=== PATIENT | female | born 1955 | race Caucasian/White ===

== ENCOUNTER → 2016-12-30 | Outpatient (CLI) | payer BC ==
[2014-12-07 15:00] VITALS: BP 167/79
[~2016-12-30] MED LIST: CITA20TA5 PO; DOXY100C2 PO; DOXYCYCLINE PO; HYDR-2666 PO; HYDR-965 PO; LEVO75TA5 PO; LOSA50TA6 PO; METF500T4 PO; NAPR220C4 PO; ZOLPIDEM 5 MG TABLET. PO ONE; [UNRECOGNIZED DRUG - CODE] PO
--- NOTE | 2017-01-01 20:01 | SLEEP ---
DATE OF STUDY: 12/30/2016 ATTENDING PHYSICIAN: Dr. Waldemar Eugene. REFERRING PHYSICIAN: Dr. Dominguez. The patient is 61 years old, weighs 180 pounds with a BMI of 31. The patient's Pomeroy score was 5. A split night study was performed at [facility]. During the night study, the patient spent 465 minutes in bed and slept for 323 minutes with a sleep efficiency of 70%. Sleep latency was 79 minutes, which is prolonged with a REM latency of 400 minutes, which is prolonged as well. Sleep architecture showed increased stage 2 sleep, normal stage 1 and increased slow wave sleep and reduced REM sleep. During the initial diagnostic portion of the study, the patient slept for 132 minutes. During this time, there were no obstructive mixed or central apneas. There were 42 hypopneas. The patient's apnea-hypopnea index was 19 per hour, supine index 32 per hour. REM sleep was not seen during the diagnostic portion. EKG monitoring revealed normal sinus rhythm, average heart rate was 71 beats per minute and some PACs were seen. Review of nocturnal oximetry study during the diagnostic portion revealed a mean oxygen saturation of 80% with the lowest of 68%. 75% of time oxygen saturation remained between 80% and 89% and 18% of time between 70% and 79%. PLMS were seen at an index of 16 per hour and 3 per hour caused EEG arousals. The patient met the criteria for CPAP initiation. It was started at 9 cm of water as the patient was unable to tolerate pressure lower than that. At a final pressure of 18 cm of water, the patient slept for 19 minutes. At that time, REM sleep as well as supine sleep was seen; as a result, the patient continued to have respiratory events. AHI was 16 per hour. Oxygen saturations also remained in the mid 80s with the lowest oxygen saturation of 84%. The patient used a small sized full face mask. I would recommend that the patient should be placed on BiPAP at a pressure of 22/16. The patient should have a download information in 30 days. IMPRESSION: 1. Moderate sleep apnea-hypopnea syndrome with an AHI of 19 per hour. Absence of REM sleep during the diagnostic portion can underestimate the severity of sleep apnea. 2. [id number]-dp-[id number] nocturnal hypoxia secondary to obstructive sleep apnea, not completely resolved with final CPAP. 3. Mild PLMS at an index of 16 per hour and 3 per hour caused EEG arousals. 4. Sleep-onset insomnia. RECOMMENDATIONS: 1. Optimum CPAP pressure was not achieved on this split night study. I would recommend that the patient should be placed on BiPAP at a pressure of 22/16 along with 2 liters of supplemental oxygen. 2. The patient should have a download information from the BiPAP in 30 days to assess optimum positive pressure therapy and also should have a followup to assess compliance with BiPAP. 3. Avoid TRAY LINE SUPERVISOR depressants. 4. Caution regarding driving until symptoms of sleep apnea resolve with the above recommendation. 5. PLMS does not need to be treated unless the patient has symptoms of restless legs during the day. COLETTE HARDIN MD DR: EFRAIN/laura JOB#: [id number] / [id number] WALDEMAR Goldstein MD, SABATO MD MTDD
== END | disposition home or self-care (01) ==
LOC: SLPLAB 18:34
PROVIDERS: ATTEND Internal Medicine Pulmonary Disease
DX: G47.33 Obstructive sleep apnea (adult) (pediatric) (principal)
CPT/HCPCS: 95810

== ENCOUNTER → 2017-02-14 | Day surgery (SDC) | payer BC ==
[~2017-02-14] MED LIST changes: +ASPI-482 PO; +BUPR150T8 PO; +FURO-68 PO; +IV RINGERS,LACTATED 1000ML 1,000 ML IV SCH; +LIDOCAINE 2% PF Vial for OR 5 ML VIAL. ONE; +METO25TA2 PO; +PANT40TA5 PO; +PRAV40TA2 PO; +PROPOFOL 20 ML IV ONE; +ROPI1TAB PO; -ZOLPIDEM 5 MG TABLET. PO ONE
[2017-02-14 08:48] VITALS: BP 93/62
== END | disposition home or self-care (01) ==
LOC: ENDOS 06:56
PROVIDERS: ATTEND Internal Medicine Gastroenterology
DX: Z12.11 Encounter for screening for malignant neoplasm of colon (principal); K64.1 Second degree hemorrhoids; K57.30 Diverticulosis of large intestine without perforation or abscess without bleeding; K44.9 Diaphragmatic hernia without obstruction or gangrene; K29.50 Unspecified chronic gastritis without bleeding; K22.2 Esophageal obstruction; E03.9 Hypothyroidism, unspecified; E78.00 Pure hypercholesterolemia, unspecified; I12.9 Hypertensive chronic kidney disease with stage 1 through stage 4 chronic kidney disease, or unspecified chronic kidney disease; N18.9 Chronic kidney disease, unspecified; E11.9 Type 2 diabetes mellitus without complications; F32.9 Major depressive disorder, single episode, unspecified; Z80.3 Family history of malignant neoplasm of breast; Z83.3 Family history of diabetes mellitus; Z82.49 Family history of ischemic heart disease and other diseases of the circulatory system; Z80.41 Family history of malignant neoplasm of ovary; Z87.891 Personal history of nicotine dependence
CPT/HCPCS: 43235; 45378; 99156; J2704

== ENCOUNTER 2017-02-16 23:15 | Inpatient (IN) | payer BC ==
[~2017-02-16] VITALS: Ht 160 cm; Wt 99.4 kg
[~2017-02-16 23:15] MED LIST changes: -IV RINGERS,LACTATED 1000ML 1,000 ML IV SCH; -LIDOCAINE 2% PF Vial for OR 5 ML VIAL. ONE; -PROPOFOL 20 ML IV ONE
[2017-02-16 23:31] VITALS: BP 102/81
[2017-02-16 23:52] LABS: BASO # 0.1 x10^3/uL (0.0-0.2); BASO % 0 % (0-3); EOS % 0 % (0-3); HEMATOCRIT 39.5 % (36.0-47.0); HEMOGLOBIN 11.6 g/dL (12.0-15.5); LYMPH # 2.1 x10^3/uL (1.0-4.8); LYMPH % 11 % (24-48); MEAN CORPUSCULAR HEMOGLOBIN 23 pg (25-35); MEAN CORPUSCULAR VOLUME 79 fL (79-100); MONO % 8 % (0-9); NEUT % 80 % (31-73); PLATELET COUNT 269 x10^3/uL (140-400); RED BLOOD COUNT 4.99 x10^6/uL (3.50-5.40); RED CELL DISTRIBUTION WIDTH 21.6 % (11.5-14.5); WHITE BLOOD COUNT 19.4 x10^3/uL (4.0-11.0)
[2017-02-16 23:59] LABS: INR 2.2 (0.8-1.1)
[2017-02-17] VITALS (32 sets, daily range): BP systolic 70–136; BP diastolic 40–81
[2017-02-17] LABS: CALCIUM 8.5 mg/dL (8.5-10.1); CREATININE 3.9 mg/dL (0.6-1.0); GFR 11.7; POTASSIUM 5.2 mmol/L (3.5-5.1)
[2017-02-17 00:15] LABS: ALBUMIN 3.1 g/dL (3.4-5.0); ALBUMIN/GLOBULIN RATIO 0.9 (1.0-1.7); MAGNESIUM 1.4 mg/dL (1.8-2.4); TOTAL BILIRUBIN 2.1 mg/dL (0.2-1.0); TOTAL PROTEIN 6.5 g/dL (6.4-8.2)
[2017-02-17 00:18] LABS: PHOSPHORUS 9.1 mg/dL (2.6-4.7)
[2017-02-17 00:23] LABS: MEAN CORPUSCULAR HGB CONC 30 g/dL (31-37)
--- NOTE | 2017-02-17 00:51 | RAD ---
PROCEDURE ET and OG tube placement. HISTORY TECHNIQUE COMPARISON FINDINGS NGT is present with its tip about 3 centimeters above the sonia. A 2nd tube reaches the proximal stomach. A left subclavian line is visible, and its tip reaches the mid SVC. No pneumothorax is seen. There are prominent lung markings bilaterally of uncertain duration. No consolidation or pleural fluid is seen. The heart is not grossly enlarged. IMPRESSION Placement of tubes and lines without apparent complication. Electronically signed by: Lico Hooper (Feb 17, 2017 00:50:05)
[2017-02-17 01:26] LABS: HYPOCHROMIA SLIGHT; MICROCYTOSIS SLIGHT; PLT ESTIMATE ADEQUATE (ADEQUATE); POIKILOCYTOSIS SLIGHT; POLYCHROMASIA SLIGHT
[2017-02-17 01:30] LABS: TOXIC GRANULATION SLIGHT; TOXIC VACUOLATION SLIGHT
[2017-02-17] MEDS ORDERED: ONDANSETRON PF 4 MG/2 ML VIAL. IV PRN (02:00)
[2017-02-17] MEDS ORDERED: ACETAMINOPHEN 325 MG TABLET. PO PRN (02:00)
[2017-02-17 02:35] LABS: HCO3 ABG 12 mmol/L (21-28); PCO2 ABG 26 mmHg (35-46); PO2 ABG 221 mmHg (65-108); SAT O2 ABG 99 % (92-99)
[2017-02-17 02:36] LABS: FIO2 ABG 70; PH ABG 7.29 (7.35-7.45)
[2017-02-17] MEDS ORDERED: SODIUM POLYSTYRENE SULFONATE 15 GM/60 ML ORAL.SUSP. PO ONE (02:45)
[2017-02-17] MEDS: MIDAZOLAM PREMIX 100 ML IV PRN ×2 (04:12→20:34)
[2017-02-17] MEDS ORDERED: IV NORMAL SALINE 1000ML BAG 1,000 ML IV ONE ×5 (04:30→18:45)
[2017-02-17] MEDS ORDERED: PNEUMOCOCCAL VAX SCREEN BY RX. MC ONE (06:00)
[2017-02-17] MEDS: NOREPINEPHRIN PREMIX 250 ML IV PRN ×2 (06:29→12:03)
[2017-02-17 07:37] LABS: BASO # 0.2 x10^3/uL (0.0-0.2); BASO % 1 % (0-3); EOS % 0 % (0-3); HEMATOCRIT 40.3 % (36.0-47.0); LYMPH # 1.6 x10^3/uL (1.0-4.8); LYMPH % 8 % (24-48); MEAN CORPUSCULAR HEMOGLOBIN 23 pg (25-35); MEAN CORPUSCULAR HGB CONC 30 g/dL (31-37); MEAN CORPUSCULAR VOLUME 78 fL (79-100); MONO % 7 % (0-9); NEUT % 84 % (31-73); PLATELET COUNT 289 x10^3/uL (140-400); RED BLOOD COUNT 5.19 x10^6/uL (3.50-5.40); RED CELL DISTRIBUTION WIDTH 22.4 % (11.5-14.5); WHITE BLOOD COUNT 20.8 x10^3/uL (4.0-11.0)
--- NOTE | 2017-02-17 08:06 | EKG ---
[facility] [address] [place] [address] Test Date: 2017-02-17 Test Time: 08:05:00 Pat Name: LEROY BRUMFIELD Department: Room: 103 1 Gender: F Fitness And Wellness Coordinator: KEV : 1955 Requested By: FREDY PRUITT Order Number: [id number] Reading MD: Ab Potts Measurements Intervals [place] Rate: 83 P: 56 GA: 132 QRS: 134 QRSD: 122 T: -2 QT: 448 QTc: 527 Interpretive Statements SINUS RHYTHM RBBB NON-SPECIFIC ST/T CHANGES CONSISTENT WITH ANTEROSEPTAL INFARCT Electronically Signed On 02-18-2017 15:40:04 CDT by Ab Potts
[2017-02-17 08:20] LABS: ALBUMIN 3.3 g/dL (3.4-5.0); ALBUMIN/GLOBULIN RATIO 0.9 (1.0-1.7); GFR 11.3; MAGNESIUM 1.4 mg/dL (1.8-2.4); PHOSPHORUS 8.9 mg/dL (2.6-4.7); POTASSIUM 5.6 mmol/L (3.5-5.1); TOTAL BILIRUBIN 2.1 mg/dL (0.2-1.0); TOTAL PROTEIN 6.9 g/dL (6.4-8.2)
[2017-02-17 08:24] LABS: INR 2.3 (0.8-1.1)
--- NOTE | 2017-02-17 08:51 | PDOC ---
Infectious Disease Note ROS ROS GEN: Denies fevers, chills, sweats HEENT: Denies blurred vision, sore throat CV: Denies chest pain RESP: Denies shortness of air, cough GI: Denies n/v/d NEURO: Denies confusion, dizziness MSK: Denies weakness, joint pain/swelling Vital Sign Vital Signs Vital Signs Date Time Temp Pulse Resp B/P Pulse Ox O2 Delivery O2 Flow Rate FiO2 02/17/17 07:17 95 Ventilator 02/17/17 06:34 84 25 95/55 02/17/17 06:02 97.6 97.6 Physical Exam PHYSICAL EXAM GENERAL: NAD, Alert HEENT: PERRL, OC/OP NECK: Supple, no JVD, no LN LUNGS: Clear HEART: S1S2, no gallop, no murmur ABD: Soft, NT, no organomegaly, no rebound EXT: No edema, no cyanosis NEON LIGHT INSTALLER: Alert, oriented x 3, no focal neurologic deficit SKIN: No rash IV: ok Labs Lab Laboratory Tests Test 02/16/17 23:30 02/16/17 23:38 02/17/17 02:04 02/17/17 02:30 White Blood Count 19.4x10^3/uL (4.0-11.0) Red Blood Count 4.99x10^6/uL (3.50-5.40) Hemoglobin 11.6g/dL (12.0-15.5) Hematocrit 39.5% (36.0-47.0) Mean Corpuscular Volume 79fL (79-100) Mean Corpuscular Hemoglobin 23pg (25-35) Mean Corpuscular Hemoglobin Concent 30g/dL (31-37) Red Cell Distribution Width 21.6% (11.5-14.5) Platelet Count 269x10^3/uL (140-400) Neutrophils (%) (Auto) 80% (31-73) Lymphocytes (%) (Auto) 11% (24-48) Monocytes (%) (Auto) 8% (0-9) Eosinophils (%) (Auto) 0% (0-3) Basophils (%) (Auto) 0% (0-3) Neutrophils # (Auto) 15.6x10^3uL (1.8-7.7) Lymphocytes # (Auto) 2.1x10^3/uL (1.0-4.8) Monocytes # (Auto) 1.6x10^3/uL (0.0-1.1) Eosinophils # (Auto) 0.1x10^3/uL (0.0-0.7) Basophils # (Auto) 0.1x10^3/uL (0.0-0.2) Segmented Neutrophils % 71% (35-66) Band Neutrophils % 7% (0-9) Lymphocytes % 16% (24-48) Monocytes % 6% (0-10) Toxic Granulation Slight Toxic Vacuolation Slight Platelet Estimate Adequate (ADEQUATE) Large Platelets Occ Polychromasia Slight Hypochromasia Slight Poikilocytosis Slight Microcytosis Slight Macrocytosis Slight Prothrombin Time 23.0SEC (11.7-14.0) Prothromb Time International Ratio 2.2 (0.8-1.1) Sodium Level 134mmol/L (136-145) Potassium Level 5.2mmol/L (3.5-5.1) Chloride Level 95mmol/L (98-107) Carbon Dioxide Level 16mmol/L (21-32) Anion Gap 23 (6-14) Blood Urea Nitrogen 67mg/dL (7-20) Creatinine 3.9mg/dL (0.6-1.0) Estimated GFR (Cockcroft-Gault) 11.7 BUN/Creatinine Ratio 17 (6-20) Glucose Level 131mg/dL (70-99) Lactic Acid Level 8.9mmol/L (0.4-2.0) 7.2mmol/L (0.4-2.0) Calcium Level 8.5mg/dL (8.5-10.1) Phosphorus Level 9.1mg/dL (2.6-4.7) Magnesium Level 1.4mg/dL (1.8-2.4) Total Bilirubin 2.1mg/dL (0.2-1.0) Aspartate Amino Transf (AST/SGOT) 187U/L (15-37) Alanine Aminotransferase (ALT/SGPT) 66U/L (14-59) Alkaline Phosphatase 128U/L (46-116) Total Protein 6.5g/dL (6.4-8.2) Albumin 3.1g/dL (3.4-5.0) Albumin/Globulin Ratio 0.9 (1.0-1.7) Glucose (Fingerstick) 130mg/dL (70-99) O2 Saturation 99% (92-99) Arterial Blood pH 7.29 (7.35-7.45) Arterial Blood pCO2 at Patient Temp 26mmHg (35-46) Arterial Blood pO2 at Patient Temp 221mmHg (65-108) Arterial Blood HCO3 12mmol/L (21-28) Arterial Blood Base Excess -13mmol/L (-3-3) FiO2 70 Test 02/17/17 07:22 02/17/17 07:30 White Blood Count 20.8x10^3/uL (4.0-11.0) Red Blood Count 5.19x10^6/uL (3.50-5.40) Hemoglobin 12.0g/dL (12.0-15.5) Hematocrit 40.3% (36.0-47.0) Mean Corpuscular Volume 78fL (79-100) Mean Corpuscular Hemoglobin 23pg (25-35) Mean Corpuscular Hemoglobin Concent 30g/dL (31-37) Red Cell Distribution Width 22.4% (11.5-14.5) Platelet Count 289x10^3/uL (140-400) Neutrophils (%) (Auto) 84% (31-73) Lymphocytes (%) (Auto) 8% (24-48) Monocytes (%) (Auto) 7% (0-9) Eosinophils (%) (Auto) 0% (0-3) Basophils (%) (Auto) 1% (0-3) Neutrophils # (Auto) 17.5x10^3uL (1.8-7.7) Lymphocytes # (Auto) 1.6x10^3/uL (1.0-4.8) Monocytes # (Auto) 1.5x10^3/uL (0.0-1.1) Eosinophils # (Auto) 0.1x10^3/uL (0.0-0.7) Basophils # (Auto) 0.2x10^3/uL (0.0-0.2) Sodium Level 134mmol/L (136-145) Potassium Level 5.6mmol/L (3.5-5.1) Chloride Level 94mmol/L (98-107) Carbon Dioxide Level 15mmol/L (21-32) Anion Gap 25 (6-14) Blood Urea Nitrogen 71mg/dL (7-20) Creatinine 4.0mg/dL (0.6-1.0) Estimated GFR (Cockcroft-Gault) 11.3 BUN/Creatinine Ratio 18 (6-20) Glucose Level 116mg/dL (70-99) Calcium Level 8.0mg/dL (8.5-10.1) Phosphorus Level 8.9mg/dL (2.6-4.7) Magnesium Level 1.4mg/dL (1.8-2.4) Total Bilirubin 2.1mg/dL (0.2-1.0) Aspartate Amino Transf (AST/SGOT) 295U/L (15-37) Alanine Aminotransferase (ALT/SGPT) 78U/L (14-59) Alkaline Phosphatase 136U/L (46-116) Total Protein 6.9g/dL (6.4-8.2) Albumin 3.3g/dL (3.4-5.0) Albumin/Globulin Ratio 0.9 (1.0-1.7) Prothrombin Time 24.0SEC (11.7-14.0) Prothromb Time International Ratio 2.3 (0.8-1.1) Objective Assessment ? sepsis vs SIRS. Did receive solumedrol in [facility] ? Aspiration - intubated- h/o Pulm fibrosis Lactic acidosis BRADLEY - dehydration Elevated Troponin H/o elevated CORA DM and gastroparesis Plan Plan of Care Dose Zosyn to cover Potential aspiration - did receive Azithro/Rocephin/ Solumedrol at [facility] F/u labs and cults Repeat Troponin/CK May need further eval for ? autoimmune given elevated CORA 1:640 with homogenous patten in Nov 2014 Await renal/cardiology/pulm f/u May need HD Reviewed [facility] record D/w Critically ill 35 min CC time # [id number] NICHOLAS SIDDIQUI MD Feb 17, 2017 08:51
[2017-02-17] MEDS: LEVOTHYROXINE SODIUM 37.5 MCG in IV NORMAL SALINE 50ML 5 ML IVP SCH (08:57)
[2017-02-17] MEDS ORDERED: MAGNESIUM SULFATE 2GM 50 ML IV ONE (09:00)
[2017-02-17] MEDS ORDERED: PANTOPRAZOLE IV PUSH 40 MG VIAL. IVP SCH (09:00)
[2017-02-17] MEDS ORDERED: PNEUMOC CONJ VACC 23-VALENT 0.5 ML VIAL. VAX IM ONE (09:00)
[2017-02-17] MEDS ORDERED: HEPARIN for IV BOLUS 10,000 UNIT/10 ML VIAL. ONE (09:23)
[2017-02-17] MEDS ORDERED: LIDOCAINE 1% / SOD BICARB 8.4% 20 ML VIAL. IJ ONE ×3 (09:23→10:15)
--- NOTE | 2017-02-17 09:29 | PDOC2 ---
CARDIAC CONSULT DATE OF CONSULT Date of Consult DATE: 02/17/17 TIME: 09:26 REASON FOR CONSULT Reason for Consult: Troponin Level REFERRING PHYSICIAN Referring Physician: Dr. Fernandez SOURCE Source: Caregiver ( ), Chart review HISTORY OF PRESENT ILLNESS HISTORY OF PRESENT ILLNESS This is a 61 yo female who initially presents to [facility] with complaints of shortness of breath and nausea/vomiting for the last couple of days. Upon arrival to [facility], was noted for acute renal failure and acute respiratory failure, subsequently requiring intubation. Initial troponin 9.087. Transferred to [facility] for further care. Second troponin level noted at 31. HPI obtained from as patient is presently intubated/sedated. Underwent EGD and colonoscopy Friday. Developed nausea and vomiting and Friday night. Persisted throughout Friday. Husbands noticed slurred speech and intermittent confusion on Friday. Friday night, reports patient complained of bilateral shoulder and neck pain, along with bilateral arm pain and tingling in the hands. No reports of chest pain, palpitations, dizziness, or diaphoresis. No recent EPPERSON. Underwent CABG in April of 2016 at [facility]. Follows with Dr. Morrison. Reports having routine visits with echocardiogram last months with reportedly normal heart function. PAST MEDICAL HISTORY Cardiovascular: CAD (s/p recent CABG), CHF, Hyperlipidemia, Pulmonary hypertension Pulmonary: Other (FREDY, pulmonary fibrosis, chronic respiratory failure- O2 dependent ) GI: GERD, Other (gastroparesis ) Heme/Onc: No pertinent hx Hepatobiliary: No pertinent hx Psych: Anxiety Musculoskeletal: Osteoarthritis Rheumatologic: No pertinent hx Infectious disease: No pertinent hx ENT: No pertinent hx Renal/: Chronic renal insuff Endocrine: Diabetes, Hypothyroidism, Other Dermatology: No pertinent hx PAST SURGICAL HISTORY Past Surgical History: CABG (04/2016), Tubal Ligation, Tonsillectomy FAMILY HISTORY Family History: Coronary Artery Disease, Diabetes, Hypertension, Migranes SOCIAL HISTORY Smoke: Quit (15 years ago) ALCOHOL: none Drugs: None Lives: with Family CURRENT MEDICATIONS CURRENT MEDICATIONS Current Medications Medications (Trade) Dose Ordered Sig/Janeen Route PRN Reason Start Time Stop Time Status Last Admin Dose Admin Sodium Polystyrene Sulfonate (Kayexalate) 30 gm 1X ONCE PO 02/17/17 02:45 02/17/17 02:46 DC 02/17/17 03:54 Pantoprazole Sodium 40 mg 40 mg TID IVP 02/17/17 09:00 02/17/17 08:56 Midazolam HCl 100 ml @ 0 mls/hr CONT PRN IV SEE I/O RECORD 02/17/17 02:30 02/17/17 04:12 Levothyroxine Sodium 37.5 mcg/ Sodium Chloride 5 ml @ 100 mls/hr DAILY IVP 02/17/17 09:00 02/17/17 08:57 Sodium Chloride 1,000 ml @ 100 mls/hr 1X ONCE IV 02/17/17 04:30 02/17/17 14:29 02/17/17 04:25 Sodium Chloride 1,000 ml @ 100 mls/hr 1X ONCE IV 02/17/17 04:30 02/17/17 14:29 02/17/17 04:25 Norepinephrine Bitartrate 250 ml @ 0 mls/hr CONT PRN IV SEE I/O RECORD 02/17/17 06:15 02/17/17 06:29 Sodium Chloride 1,000 ml @ 1,000 mls/hr 1X ONCE IV 02/17/17 08:15 02/17/17 09:14 DC 02/17/17 08:56 Sodium Chloride (Iv Sodium Chloride 0.9% 1000ml Bag) 1,000 ml @ 1,000 mls/hr 1X ONCE IV 02/17/17 09:00 02/17/17 09:59 02/17/17 08:57 ALLERGIES ALLERGIES: Coded Allergies: Sulfa (Sulfonamide Antibiotics) (Verified Allergy, Severe, SWELLING MOSTLY ON LIPS, 02/14/17) ROS Review of System unobtainable PHYSICAL EXAM General: Other (intubated/sedated ) HEENT: Atraumatic, Mucous membr. moist/pink Lungs: Other (mechanical ventilation) Heart: Regular rate, Normal S1, Normal S2, Other (distant heart tones ) Abdomen: Soft Extremities: No cyanosis, Other (1+ bilateral LE edema. 1+ bilateral pedal pulses ) Skin: No significant lesion Neuro: Other (unable to assess ) Psych/Mental Status: Other (sedated ) MUSCULOSKELETAL: Osteoarthritic changes both hands VITALS VITALS Vital Signs Date Time Temp Pulse Resp B/P Pulse Ox O2 Delivery O2 Flow Rate FiO2 02/17/17 08:18 Mechanical Ventilator 02/17/17 08:00 99.0 82 16 115/66 97 40.0 99.0 LABS Lab: Laboratory Tests Test 02/16/17 23:30 02/16/17 23:38 02/17/17 02:04 02/17/17 02:30 White Blood Count 19.4x10^3/uL (4.0-11.0) Red Blood Count 4.99x10^6/uL (3.50-5.40) Hemoglobin 11.6g/dL (12.0-15.5) Hematocrit 39.5% (36.0-47.0) Mean Corpuscular Volume 79fL (79-100) Mean Corpuscular Hemoglobin 23pg (25-35) Mean Corpuscular Hemoglobin Concent 30g/dL (31-37) Red Cell Distribution Width 21.6% (11.5-14.5) Platelet Count 269x10^3/uL (140-400) Neutrophils (%) (Auto) 80% (31-73) Lymphocytes (%) (Auto) 11% (24-48) Monocytes (%) (Auto) 8% (0-9) Eosinophils (%) (Auto) 0% (0-3) Basophils (%) (Auto) 0% (0-3) Neutrophils # (Auto) 15.6x10^3uL (1.8-7.7) Lymphocytes # (Auto) 2.1x10^3/uL (1.0-4.8) Monocytes # (Auto) 1.6x10^3/uL (0.0-1.1) Eosinophils # (Auto) 0.1x10^3/uL (0.0-0.7) Basophils # (Auto) 0.1x10^3/uL (0.0-0.2) Segmented Neutrophils % 71% (35-66) Band Neutrophils % 7% (0-9) Lymphocytes % 16% (24-48) Monocytes % 6% (0-10) Toxic Granulation Slight Toxic Vacuolation Slight Platelet Estimate Adequate (ADEQUATE) Large Platelets Occ Polychromasia Slight Hypochromasia Slight Poikilocytosis Slight Microcytosis Slight Macrocytosis Slight Prothrombin Time 23.0SEC (11.7-14.0) Prothromb Time International Ratio 2.2 (0.8-1.1) Sodium Level 134mmol/L (136-145) Potassium Level 5.2mmol/L (3.5-5.1) Chloride Level 95mmol/L (98-107) Carbon Dioxide Level 16mmol/L (21-32) Anion Gap 23 (6-14) Blood Urea Nitrogen 67mg/dL (7-20) Creatinine 3.9mg/dL (0.6-1.0) Estimated GFR (Cockcroft-Gault) 11.7 BUN/Creatinine Ratio 17 (6-20) Glucose Level 131mg/dL (70-99) Lactic Acid Level 8.9mmol/L (0.4-2.0) 7.2mmol/L (0.4-2.0) Calcium Level 8.5mg/dL (8.5-10.1) Phosphorus Level 9.1mg/dL (2.6-4.7) Magnesium Level 1.4mg/dL (1.8-2.4) Total Bilirubin 2.1mg/dL (0.2-1.0) Aspartate Amino Transf (AST/SGOT) 187U/L (15-37) Alanine Aminotransferase (ALT/SGPT) 66U/L (14-59) Alkaline Phosphatase 128U/L (46-116) Total Protein 6.5g/dL (6.4-8.2) Albumin 3.1g/dL (3.4-5.0) Albumin/Globulin Ratio 0.9 (1.0-1.7) Glucose (Fingerstick) 130mg/dL (70-99) O2 Saturation 99% (92-99) Arterial Blood pH 7.29 (7.35-7.45) Arterial Blood pCO2 at Patient Temp 26mmHg (35-46) Arterial Blood pO2 at Patient Temp 221mmHg (65-108) Arterial Blood HCO3 12mmol/L (21-28) Arterial Blood Base Excess -13mmol/L (-3-3) FiO2 70 Test 02/17/17 07:22 02/17/17 07:30 White Blood Count 20.8x10^3/uL (4.0-11.0) Red Blood Count 5.19x10^6/uL (3.50-5.40) Hemoglobin 12.0g/dL (12.0-15.5) Hematocrit 40.3% (36.0-47.0) Mean Corpuscular Volume 78fL (79-100) Mean Corpuscular Hemoglobin 23pg (25-35) Mean Corpuscular Hemoglobin Concent 30g/dL (31-37) Red Cell Distribution Width 22.4% (11.5-14.5) Platelet Count 289x10^3/uL (140-400) Neutrophils (%) (Auto) 84% (31-73) Lymphocytes (%) (Auto) 8% (24-48) Monocytes (%) (Auto) 7% (0-9) Eosinophils (%) (Auto) 0% (0-3) Basophils (%) (Auto) 1% (0-3) Neutrophils # (Auto) 17.5x10^3uL (1.8-7.7) Lymphocytes # (Auto) 1.6x10^3/uL (1.0-4.8) Monocytes # (Auto) 1.5x10^3/uL (0.0-1.1) Eosinophils # (Auto) 0.1x10^3/uL (0.0-0.7) Basophils # (Auto) 0.2x10^3/uL (0.0-0.2) Sodium Level 134mmol/L (136-145) Potassium Level 5.6mmol/L (3.5-5.1) Chloride Level 94mmol/L (98-107) Carbon Dioxide Level 15mmol/L (21-32) Anion Gap 25 (6-14) Blood Urea Nitrogen 71mg/dL (7-20) Creatinine 4.0mg/dL (0.6-1.0) Estimated GFR (Cockcroft-Gault) 11.3 BUN/Creatinine Ratio 18 (6-20) Glucose Level 116mg/dL (70-99) Lactic Acid Level 7.7mmol/L (0.4-2.0) Calcium Level 8.0mg/dL (8.5-10.1) Phosphorus Level 8.9mg/dL (2.6-4.7) Magnesium Level 1.4mg/dL (1.8-2.4) Total Bilirubin 2.1mg/dL (0.2-1.0) Aspartate Amino Transf (AST/SGOT) 295U/L (15-37) Alanine Aminotransferase (ALT/SGPT) 78U/L (14-59) Alkaline Phosphatase 136U/L (46-116) Troponin I Quantitative 31.106ng/mL (0.000-0.055) Total Protein 6.9g/dL (6.4-8.2) Albumin 3.3g/dL (3.4-5.0) Albumin/Globulin Ratio 0.9 (1.0-1.7) Prothrombin Time 24.0SEC (11.7-14.0) Prothromb Time International Ratio 2.3 (0.8-1.1) ASSESSMENT/PLAN ASSESSMENT/PLAN 1. NSTEMI trop 31.1- continue to trend echo last month with reportedly normal LV function ? graft failure will recheck echo to assess LV function/presence of WMA INR 2.3- will recheck in am. Consider heparin gtt if INR <2.0 continue medical management 2. CAD s/p CABG at [facility] 04/2016 obtain records hold BB and ARB with hypotension/BRADLEY. No statin with transaminitis. resume secondary prevention as able. 3. Acute on chronic respiratory failure with metabolic acidosis s/p intubation per pulm 4. Leukocytosis blood culture obtained at [facility] broad-spectrum antibiotic therapy initiated 4. Lactic acidosis with sepsis and hypovolemic shock requiring Vasopressin and Levo s/p fluid resuscitation titrate pressors as warranted for support 5. Transaminitis secondary to shock 6. BRADLEY with CKD with electrolyte abnormalities on Bicarb gtt temp cath placed; HD to commence Mg replaced. Monitor lytes 7. Diabetes per PCP 8. Hypothyroidism Problems: AVELINO OSBORNE APRN Feb 17, 2017 09:29
[2017-02-17] MEDS: PIPERACILLIN/TAZOBACTAM 2.25 GM in IV NORMAL SALINE 50ML 50 ML IV SCH ×3 (09:30→22:00)
[2017-02-17] MEDS: fentaNYL PF VIAL 100 MCG/2 ML VIAL IV PRN ×2 (09:31→20:35)
[2017-02-17 09:35] LABS: HCO3 ABG 10 mmol/L (21-28); PCO2 ABG 31 mmHg (35-46); PO2 ABG 96 mmHg (65-108); SAT O2 ABG 94 % (92-99)
[2017-02-17] MEDS ORDERED: SODIUM BICARB ADULT 8.4% 50 MEQ/50 ML DISP.SYRIN. ONE (09:42)
[2017-02-17 09:44] LABS: PH ABG 7.14 (7.35-7.45)
[2017-02-17 09:45] LABS: FIO2 ABG 40
[2017-02-17] MEDS ORDERED: SODIUM BICARB ADULT 8.4% 50 MEQ/50 ML DISP.SYRIN. IV ONE (09:45)
[2017-02-17] MEDS ORDERED: VASOPRESSIN 40 UNIT in IV DEXTROSE 5% 100 ML IV ONE (10:00)
--- NOTE | 2017-02-17 10:09 | PDOC ---
Exam Welding Robot Operator Welding Robot Operator Feliciano Supervisor Paper Testing Supervisor Paper Testing Christina Marley Pre-Procedure Diagnosis Pre-Procedure Diagnosis 61 YO critically ill ICU patient with sepsis, hypotension, and lactic acidosis, sedated on vent. Post-Procedure Diagnosis Post-Procedure Diagnosis Samr Procedure Performed Procedure Performed Urgent bedside sono guided temp HDC insertion. Type of Anesthesia Type of Anesthesia Local Estimated Blood Loss EBL: Minimal Drain/Tubes Drains/Tubes Rt IJ 14F 20cm Schon temp HDC. Condition of Patient Condition of Patient No change. No apparent complication. Disposition Disposition STAT pCXR requested for temp HDC position. Full report to follow. ERICA BRANDON MD Feb 17, 2017 10:09
--- NOTE | 2017-02-17 10:13 | PDOC ---
Provider Note Provider Note dictated COLETTE HARDIN MD Feb 17, 2017 10:13
[2017-02-17] MEDS ORDERED: VANCOMYCIN PER PHARMACY MC PRN (10:15)
[2017-02-17] MEDS ORDERED: HYDROCORTISONE SOD SUCC/PF 100 MG/2 ML VIAL. IV ONE (10:30)
[2017-02-17] MEDS ORDERED: VANCOMYCIN 2 GM in IV NORMAL SALINE 500ML BAG 500 ML IV ONE (10:30)
[2017-02-17] MEDS ORDERED: HYDROCORTISONE SOD SUCC/PF 100 MG/2 ML VIAL. IV SCH (10:30)
[2017-02-17] MEDS: SODIUM BICARBONATE VIAL 150 MEQ in IV DEXTROSE 5% 1,000 ML IV SCH ×2 (10:34→17:25)
--- NOTE | 2017-02-17 10:44 | RAD ---
Portable chest, 02/17/2017, 10:16 AM: History: Check catheter placement, new hemodialysis catheter Comparison is made to the study of earlier the same day. The ET tube tip lies 2 cm above the sonia. An NG tube extends into the stomach. A right jugular dialysis type catheter has been inserted extending into the mid right atrium. There has been a previous median sternotomy. The heart size is unchanged. There is unchanged prominence of the pulmonary markings in a reticulonodular pattern. There is no evidence of pneumothorax or pleural fluid. IMPRESSION: 1. Interval insertion of a right jugular dialysis type catheter extending to the mid right atrium. 2. No other significant change since earlier in the day.
--- NOTE | 2017-02-17 11:48 | CONS ---
DATE OF CONSULTATION: ATTENDING PHYSICIAN: Dr. Fernandez. REASON FOR CONSULTATION: Respiratory failure, shock, acute renal failure, abnormal chest x-ray, pulmonary fibrosis. HISTORY OF PRESENT ILLNESS: The patient is a 61-year-old female who has been followed by my partner, Dr. Dominguez at the office for interstitial lung disease/pulmonary fibrosis related to large volume emesis during anesthesia induction several years ago. The patient also has history of obstructive sleep apnea and chronic respiratory failure. She presented to [facility] with marked dyspnea. She was having dry heaves as well. She had some increasing ankle edema for which she was started to use some additional diuretics. The patient also had recent EGD. She was having nausea, vomiting and diarrhea as well. At [facility], she was found to have acute renal failure. She was also in respiratory failure. As a result, she was intubated and transferred to [facility]. I have reviewed the patient's chest x-ray, which shows bilateral interstitial infiltrates which appear to be chronic. Endotracheal tube is in satisfactory position. She has marked elevation in her BUN of 77 and a creatinine of 3.7. She has marked lactic acidosis. The patient also was noted to have a markedly elevated troponin level of 31. Her previous troponin was 9.0 She was intubated and initial blood gases showed a pH of 7.16, pCO2 of 19 with a pO2 of 80 with a bicarb of 7. She was transferred to [facility]. She is currently intubated. Her latest ABGs have shown severe metabolic acidosis. Her pH of 7.14, pCO2 of 33, pO2 of 96 with a bicarb of only 10. She is in acute renal failure. She just had a hemodialysis catheter placed. She is going to be have an urgent hemodialysis. Her lactic acid latest is 7.7. She is in shock. She has received 3 liters of IV fluids. Her CVP is now 19. She is on 30 mics of Levophed. we will be start on vasopressin Consultation requested for further evaluation and management. PAST MEDICAL HISTORY: History of CAD, history of CHF, hyperlipidemia, history of FREDY, history of pulmonary fibrosis, glass interstitial lung disease, secondary to massive acid aspiration during anesthesia induction. Past medical history also includes diabetes, hypothyroidism. PAST SURGICAL HISTORY: Including tubal ligation, tonsillectomy. FAMILY HISTORY: Coronary artery disease, diabetes and hypertension. REVIEW OF SYSTEMS: Unable to obtain as the patient is on the ventilator. PHYSICAL EXAMINATION: VITAL SIGNS: Her latest blood pressure ____ in the 70s. T-max of 99. Pulse ox is 99%. HEENT: Sclerae nonicteric. NECK: Supple. LUNGS: With diminished breath sounds with few crackles posteriorly. CARDIOVASCULAR: Regular rate. ABDOMEN: Distended. EXTREMITIES: With bilateral pitting edema. LABORATORY DATA: Reviewed. White cell count is 20,000, hemoglobin 12.0 and platelets are 289. ABGs are discussed in my history of present illness along with chest x-ray findings. BUN 71, creatinine ____. Lactic acid is 7.7. Troponin is ____. IMPRESSION: 1. Acute respiratory failure secondary to shock. The shock is a combination of hypovolemic and septic shock. Cannot exclude cardiogenic shock. 2. Shock secondary to hypovolemic and septic etiology. Cannot exclude cardiogenic shock. Her troponin level is 31. She did have a low grade fever and marked lactic acidosis. Currently, she has received 3 liters of IV fluids. Her CVP last check was 19 and has been adequately fluid resuscitated. We will continue with pressor support and also add hydrocortisone. 3. Acute renal failure secondary to combination of septic shock/acute tubular necrosis and hypovolemia. She had nausea, vomiting and also increased her diuretics recently for pedal edema. 4. 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 Not been on chronic steroids. 5. Marked anion gap metabolic acidosis secondary to septic shock./renal failure 6. Markedly elevated troponin level of 31, secondary to non-ST myocardial infarction. RECOMMENDATIONS: 1. Continue with present assist control mode. At this point, I cannot increase the rate further due to ongoing severe metabolic acidosis. 2. Broad spectrum antibiotics and follow ID recommendation. 3. Bicarb drip per Renal. 4. Hemodialysis emergently along with high bicarb bath and follow lactic acid level. 5. Chest x-ray followup. She does have unchanged chronic interstitial infiltrates secondary to fibrosis. Difficult to exclude superimposed pneumonia. 6. Follow all culture results. 7. Follow bicarb level. 8. The patient's INR is already high and we will hold DVT prophylaxis. 9. Stress ulcer prophylaxis. 10. Hydrocortisone 100 mg IV q. 8 hours. 11. Obtain echo and follow Cardiology recommendations. 12. Discussed with RN, discussed with Dr. Villareal and with Cardiology Critical care time 45 minutes. COLETTE HARDIN MD DR: EFRAIN/laura JOB#: [id number] / [id number] GIL
--- NOTE | 2017-02-17 12:09 | CARD ---
APPROVED REPORT EXAM: Two-dimensional and M-mode echocardiogram with Doppler and color Doppler. Other Information Quality : Good INDICATION LV Function:Systolic 2D DIMENSIONS RVDd3.6 (2.9-3.5cm)Left Atrium(2D)3.4 (1.6-4.0cm) IVSd1.5 (0.7-1.1cm)Aortic Root(2D)2.9 (2.0-3.7cm) LVDd3.7 (3.9-5.9cm)LVOT Diameter2.0 (1.8-2.4cm) PWd0.9 (0.7-1.1cm)LVDs1.9 (2.5-4.0cm) FS (%) 30.0 %SV46.1 ml LVEF(%)60.0 (>50%) Aortic Valve AoV Peak Alessio.154.5cm/sAoV VTI23.2cm AO Peak GR.9.5mmHgLVOT VTI 14.19cm AO Mean GR.5mmHgAVA (VTI)2.00cm2 Mitral Valve MV E Hhzlntjp03.0cm/sMV DECEL [id number] MV A Mdkmcznc84.1cm/sE/A Ratio0.7 TDI Lateral E' P. V2.96cm/sMedial E' P. V3.99cm/s E/Lateral E'18.9E/Medial E'14.0 Tricuspid Valve TR P. Vxijotou223ab/sRAP [id number] TR Peak Gr.40xiSyJHFQ02ldTb LEFT VENTRICLE The left ventricle is normal size. There is mild asymmetric septal left ventricular hypertrophy. The left ventricular systolic function is normal and the ejection fraction is within normal range. The Ej ection Fraction is 55-60%. There is normal LV segmental wall motion. Transmitral Doppler flow pattern is Grade I-abnormal relaxation pattern. RIGHT VENTRICLE The right ventricle is moderately to severely dilated. Systolic function is moderately reduced. ATRIA The left atrium size is normal. The right atrium is moderately dilated. The interatrial septum is int act with no evidence for an atrial septal defect or patent foramen ovale as noted on 2-D or Doppler i maging. AORTIC VALVE The aortic valve is calcified but opens well. Doppler and Color Flow revealed no significant aortic r egurgitation. There is no significant aortic valvular stenosis. MITRAL VALVE The mitral valve is normal in structure and function. There is no evidence of mitral valve prolapse. There is no mitral valve stenosis. Doppler and Color-flow revealed trace mitral regurgitation. TRICUSPID VALVE The tricuspid valve is normal in structure and function. Doppler and Color Flow revealed moderate tri cuspid regurgitation. There is severe pulmonary hypertension. The PA pressure was estimated at 60 mmH g. There is no tricuspid valve stenosis. PULMONIC VALVE Doppler and Color Flow revealed mild pulmonic valvular regurgitation. There is no pulmonic valvular s tenosis. GREAT VESSELS The aortic root is normal in size. The ascending aorta is normal in size. The IVC is dilated and rudolph apses >50% with inspiration. PERICARDIAL EFFUSION There is no evidence of significant pericardial effusion. Critical Notification Critical Value: No <Conclusion> The left ventricular systolic function is normal and the ejection fraction is within normal range. Th e Ejection Fraction is 55-60%. There is normal LV segmental wall motion. The right ventricle is moderately to severely dilated. RV Systolic function is moderately reduced. The right atrium is moderately dilated. Doppler and Color Flow revealed moderate tricuspid regurgitation. There is severe pulmonary hypertens ion. The PA pressure was estimated at 60 mmHg.
[2017-02-17] MEDS ORDERED: IV NORMAL SALINE 1000ML BAG 1,000 ML IV SCH (12:15)
[2017-02-17] MEDS ORDERED: IV NORMAL SALINE 1000ML BAG 1,000 ML IV PRN (12:28)
[2017-02-17] MEDS ORDERED: 0.9 % SODIUM CHLORIDE 10 ML DISP.SYRIN. IV PRN ×2 (12:30)
[2017-02-17] MEDS ORDERED: DIALYSIS PATIENT. MC PRN ×2 (12:30)
[2017-02-17] MEDS: HYDROCORTISONE SOD SUCC/PF 100 MG/2 ML VIAL. IV SCH ×2 (14:05→22:00)
--- NOTE | 2017-02-17 15:54 | PDOC2 ---
GI CONSULT Reason For Consult: Colonoscopy on Friday septic now HPI: HPI: 61 y/o female known to Dr. Squires. Had outpatient EGD and colonoscopy on , has suspected diagnosis of gastroparesis w/ frequent n/v/retching. (N/v previously improved w/ Reglan from PCP - stopped due to worsening restless leg symptoms.) EGD and colonoscopy showed hiatal hernia, chronic gastritis, sigmoid diverticula, and internal hemorrhoids. Path is pending. History from family in room. [place] well after 'scopes on Friday except for one episode of retching (not uncommon for her), began feeling weak w/ numbness in hand and slurring words on Sat. night. Progressively worsened Friday, taken to [facility] ER, noted w/ BRADLEY and resp failure, was intubated, transferred to [facility] w/ elevated troponin. Had HDC inserted urgently this a.m. Cardio, pulm, and ID following; nephrology consult pending. Abnormal labs as below including WBC 20.8, Hgb 12, INR 2.3, lactic acid 7.7, bili 2.1, AST 295, ALT 78, Alk Phos 136 , troponin 31, potassium 5.6, BUN 71, Cr 4. Note elevated TSH (>12) at [facility]. GI asked to see w/ recent EGD and colonoscopy. PMH: PMH: CAD (s/p recent CABG), CHF, HLD, pulmonary hypertension, FREDY, pulmonary fibrosis , chronic resp failure on O2, ?gastroparesis, anxiety, OA, CKD, DM, hypothyroidism, elevated CORA, tubal ligation, tonsillectomy Social History: Smoke: Quit ALCOHOL: none Drugs: None ROS: Unable to obtain. VItals: Vitals: Vital Signs Date Time Temp Pulse Resp B/P Pulse Ox O2 Delivery O2 Flow Rate FiO2 02/17/17 14:40 97.6 75 122/64 40 Ventilator 97.6 02/17/17 13:36 19 02/17/17 11:32 40.0 Labs: Labs: Laboratory Tests Test 02/16/17 23:30 02/16/17 23:38 02/17/17 02:04 02/17/17 02:30 White Blood Count 19.4x10^3/uL (4.0-11.0) Red Blood Count 4.99x10^6/uL (3.50-5.40) Hemoglobin 11.6g/dL (12.0-15.5) Hematocrit 39.5% (36.0-47.0) Mean Corpuscular Volume 79fL (79-100) Mean Corpuscular Hemoglobin 23pg (25-35) Mean Corpuscular Hemoglobin Concent 30g/dL (31-37) Red Cell Distribution Width 21.6% (11.5-14.5) Platelet Count 269x10^3/uL (140-400) Neutrophils (%) (Auto) 80% (31-73) Lymphocytes (%) (Auto) 11% (24-48) Monocytes (%) (Auto) 8% (0-9) Eosinophils (%) (Auto) 0% (0-3) Basophils (%) (Auto) 0% (0-3) Neutrophils # (Auto) 15.6x10^3uL (1.8-7.7) Lymphocytes # (Auto) 2.1x10^3/uL (1.0-4.8) Monocytes # (Auto) 1.6x10^3/uL (0.0-1.1) Eosinophils # (Auto) 0.1x10^3/uL (0.0-0.7) Basophils # (Auto) 0.1x10^3/uL (0.0-0.2) Segmented Neutrophils % 71% (35-66) Band Neutrophils % 7% (0-9) Lymphocytes % 16% (24-48) Monocytes % 6% (0-10) Toxic Granulation Slight Toxic Vacuolation Slight Platelet Estimate Adequate (ADEQUATE) Large Platelets Occ Polychromasia Slight Hypochromasia Slight Poikilocytosis Slight Microcytosis Slight Macrocytosis Slight Prothrombin Time 23.0SEC (11.7-14.0) Prothromb Time International Ratio 2.2 (0.8-1.1) Sodium Level 134mmol/L (136-145) Potassium Level 5.2mmol/L (3.5-5.1) Chloride Level 95mmol/L (98-107) Carbon Dioxide Level 16mmol/L (21-32) Anion Gap 23 (6-14) Blood Urea Nitrogen 67mg/dL (7-20) Creatinine 3.9mg/dL (0.6-1.0) Estimated GFR (Cockcroft-Gault) 11.7 BUN/Creatinine Ratio 17 (6-20) Glucose Level 131mg/dL (70-99) Lactic Acid Level 8.9mmol/L (0.4-2.0) 7.2mmol/L (0.4-2.0) Calcium Level 8.5mg/dL (8.5-10.1) Phosphorus Level 9.1mg/dL (2.6-4.7) Magnesium Level 1.4mg/dL (1.8-2.4) Total Bilirubin 2.1mg/dL (0.2-1.0) Aspartate Amino Transf (AST/SGOT) 187U/L (15-37) Alanine Aminotransferase (ALT/SGPT) 66U/L (14-59) Alkaline Phosphatase 128U/L (46-116) Total Protein 6.5g/dL (6.4-8.2) Albumin 3.1g/dL (3.4-5.0) Albumin/Globulin Ratio 0.9 (1.0-1.7) Glucose (Fingerstick) 130mg/dL (70-99) O2 Saturation 99% (92-99) Arterial Blood pH 7.29 (7.35-7.45) Arterial Blood pCO2 at Patient Temp 26mmHg (35-46) Arterial Blood pO2 at Patient Temp 221mmHg (65-108) Arterial Blood HCO3 12mmol/L (21-28) Arterial Blood Base Excess -13mmol/L (-3-3) FiO2 70 Test 02/17/17 07:22 02/17/17 07:30 02/17/17 09:30 02/17/17 12:18 White Blood Count 20.8x10^3/uL (4.0-11.0) Red Blood Count 5.19x10^6/uL (3.50-5.40) Hemoglobin 12.0g/dL (12.0-15.5) Hematocrit 40.3% (36.0-47.0) Mean Corpuscular Volume 78fL (79-100) Mean Corpuscular Hemoglobin 23pg (25-35) Mean Corpuscular Hemoglobin Concent 30g/dL (31-37) Red Cell Distribution Width 22.4% (11.5-14.5) Platelet Count 289x10^3/uL (140-400) Neutrophils (%) (Auto) 84% (31-73) Lymphocytes (%) (Auto) 8% (24-48) Monocytes (%) (Auto) 7% (0-9) Eosinophils (%) (Auto) 0% (0-3) Basophils (%) (Auto) 1% (0-3) Neutrophils # (Auto) 17.5x10^3uL (1.8-7.7) Lymphocytes # (Auto) 1.6x10^3/uL (1.0-4.8) Monocytes # (Auto) 1.5x10^3/uL (0.0-1.1) Eosinophils # (Auto) 0.1x10^3/uL (0.0-0.7) Basophils # (Auto) 0.2x10^3/uL (0.0-0.2) Sodium Level 134mmol/L (136-145) Potassium Level 5.6mmol/L (3.5-5.1) Chloride Level 94mmol/L (98-107) Carbon Dioxide Level 15mmol/L (21-32) Anion Gap 25 (6-14) Blood Urea Nitrogen 71mg/dL (7-20) Creatinine 4.0mg/dL (0.6-1.0) Estimated GFR (Cockcroft-Gault) 11.3 BUN/Creatinine Ratio 18 (6-20) Glucose Level 116mg/dL (70-99) Lactic Acid Level 7.7mmol/L (0.4-2.0) Calcium Level 8.0mg/dL (8.5-10.1) Phosphorus Level 8.9mg/dL (2.6-4.7) Magnesium Level 1.4mg/dL (1.8-2.4) Total Bilirubin 2.1mg/dL (0.2-1.0) Aspartate Amino Transf (AST/SGOT) 295U/L (15-37) Alanine Aminotransferase (ALT/SGPT) 78U/L (14-59) Alkaline Phosphatase 136U/L (46-116) Creatine Kinase 3379U/L (26-192) Troponin I Quantitative 31.106ng/mL (0.000-0.055) Total Protein 6.9g/dL (6.4-8.2) Albumin 3.3g/dL (3.4-5.0) Albumin/Globulin Ratio 0.9 (1.0-1.7) Prothrombin Time 24.0SEC (11.7-14.0) Prothromb Time International Ratio 2.3 (0.8-1.1) O2 Saturation 94% (92-99) Arterial Blood pH 7.14 (7.35-7.45) Arterial Blood pCO2 at Patient Temp 31mmHg (35-46) Arterial Blood pO2 at Patient Temp 96mmHg (65-108) Arterial Blood HCO3 10mmol/L (21-28) Arterial Blood Base Excess -18mmol/L (-3-3) FiO2 40 Glucose (Fingerstick) 143mg/dL (70-99) Allergies: Coded Allergies: Sulfa (Sulfonamide Antibiotics) (Verified Allergy, Severe, SWELLING MOSTLY ON LIPS, 02/14/17) Medications: Current Medications Medications (Trade) Dose Ordered Sig/Janeen Route PRN Reason Start Time Stop Time Status Last Admin Dose Admin Sodium Polystyrene Sulfonate (Kayexalate) 30 gm 1X ONCE PO 02/17/17 02:45 02/17/17 02:46 DC 02/17/17 03:54 Pantoprazole Sodium 40 mg 40 mg TID IVP 02/17/17 09:00 02/17/17 13:17 DC 02/17/17 08:56 Midazolam HCl 100 ml @ 0 mls/hr CONT PRN IV SEE I/O RECORD 02/17/17 02:30 02/17/17 04:12 Levothyroxine Sodium 37.5 mcg/ Sodium Chloride 5 ml @ 100 mls/hr DAILY IVP 02/17/17 09:00 02/17/17 08:57 Sodium Chloride 1,000 ml @ 100 mls/hr 1X ONCE IV 02/17/17 04:30 02/17/17 11:25 DC 02/17/17 04:25 Sodium Chloride 1,000 ml @ 100 mls/hr 1X ONCE IV 02/17/17 04:30 02/17/17 14:29 DC 02/17/17 04:25 Norepinephrine Bitartrate 250 ml @ 0 mls/hr CONT PRN IV SEE I/O RECORD 02/17/17 06:15 02/17/17 12:03 Sodium Chloride 1,000 ml @ 1,000 mls/hr 1X ONCE IV 02/17/17 08:15 02/17/17 09:14 DC 02/17/17 08:56 Piperacillin Sod/ Tazobactam Sod 2.25 gm/Sodium Chloride 50 ml @ 100 mls/hr Q8HRS IV 02/17/17 08:45 02/17/17 14:05 Magnesium Sulfate/ Dextrose (Magnesium Sulfate PREMIX 2GM) 50 ml @ 25 mls/hr 1X ONCE IV 02/17/17 09:00 02/17/17 10:59 DC 02/17/17 09:30 Fentanyl Citrate 50 mcg 50 mcg PRN Q2HR PRN IV PAIN 02/17/17 09:00 02/17/17 09:31 Sodium Chloride (Iv Sodium Chloride 0.9% 1000ml Bag) 1,000 ml @ 1,000 mls/hr 1X ONCE IV 02/17/17 09:00 02/17/17 09:59 DC 02/17/17 08:57 Sodium Bicarbonate 100 meq 100 meq 1X ONCE IV 02/17/17 09:45 02/17/17 09:48 DC 02/17/17 09:51 Sodium Bicarbonate 150 meq/Dextrose 1,150 ml @ 150 mls/hr Q7H40M IV 02/17/17 09:45 02/17/17 10:34 Vasopressin/ Dextrose (Vasostrict) 102 ml @ 6 mls/hr ONCE ONCE IV 02/17/17 10:00 02/18/17 02:59 02/17/17 10:34 Vancomycin HCl (Vanco Per Pharmacy) 1 each PRN DAILY PRN MC SEE COMMENTS 02/17/17 10:15 02/17/17 10:28 Hydrocortisone Sodium Succinate 100 mg 100 mg ONCE ONCE IV 02/17/17 10:30 02/17/17 10:31 DC 02/17/17 10:36 Vancomycin HCl/ Sodium Chloride (Iv Sodium Chloride 0.9% 500ml Bag) 500 ml @ 250 mls/hr ONCE ONCE IV 02/17/17 10:30 02/17/17 12:29 DC 02/17/17 13:53 Hydrocortisone Sodium Succinate 100 mg 100 mg Q8HRS IV 02/17/17 14:00 02/17/17 14:05 Sodium Chloride (Iv Sodium Chloride 0.9% 1000ml Bag) 1,000 ml @ 100 mls/hr Q10H IV 02/17/17 12:15 02/17/17 13:53 Imaging: Imaging: CXR IMPRESSION: 1. Interval insertion of a right jugular dialysis type catheter extending to the mid right atrium. 2. No other significant change since earlier in the day. PE: GEN: intubated HEENT: atraumatic LUNGS: vent HEART: RRR ABD: BS+, S/ND EXTREMITY: BLE edema SKIN: no rashes, no jaundice NEURO/PSYCH: sedated A/P: A/P: NSTEMI, CAD, h/o CABG Resp failure, acute on chronic -h/o pulm fibrosis, uses O2 at home -intubated in ICU Leukocytosis -ID following, blood cx at [facility], on atbx Lactic acidosis, shock Abnormal LFTs -w/ shock BRADLEY, h/o CKD -had HDC inserted today Chronic n/v/retching -suspected diagnosis of gastroparesis, no formal GET yet -had EGD for this along w/ screening colonoscopy on 02/14/17: chronic gastritis, hiatal hernia, sigmoid diverticulum, internal hemorrhoids -on IV PPI -h/o DM, hypothyroidism -- Reviewed w/ Dr. Squires who will see later today. Will check abd US w/ elevated LFTs. JF CENTENO Feb 17, 2017 15:54
[2017-02-17 16:46] LABS: HCO3 ABG 23 mmol/L (21-28); PCO2 ABG 32 mmHg (35-46); PH ABG 7.48 (7.35-7.45); PO2 ABG 105 mmHg (65-108); SAT O2 ABG 97 % (92-99)
[2017-02-17 16:51] LABS: FIO2 ABG 40
--- NOTE | 2017-02-17 16:58 | HP ---
ADMIT DATE: 02/17/2017 CHIEF COMPLAINT: Respiratory failure. HISTORY OF PRESENT ILLNESS: The patient is a pleasant elderly female who has multiple medical issues. Basically, she is in respiratory failure. She was intubated at [facility]. She has pulmonary fibrosis apparently from chronic aspiration. She also has a history of heart failure and history of coronary artery disease. Basically, she has been admitted to our Intensive Care Unit where she is currently on the vent. She is very critically ill. She is on two IV pressors. Her is present. PAST MEDICAL HISTORY: COPD, pulmonary fibrosis, interstitial lung disease, CAD, CHF, hyperlipidemia, obstructive sleep apnea, aspiration pneumonia, diabetes, hypothyroidism, tubal ligation, and tonsillectomy. Recent colonoscopy and EGD last week. ALLERGIES: SULFA. FAMILY HISTORY: Coronary artery disease. SOCIAL HISTORY: She quit smoking, no drinking, or drugs. MEDICATIONS: Reviewed. Please refer to the MRAD. REVIEW OF SYSTEMS: Unobtainable. The patient is on the vent. PHYSICAL EXAMINATION: VITAL SIGNS: Temperature afebrile, pulse 68, respirations 18, blood pressure 88/44 when I first started, it is now up to 102/70. GENERAL: She is on 2 pressors. HEART: Distant S1, S2 with a soft S3. LUNGS: Diffuse crackles. ABDOMEN: Soft, decreased bowel sounds. EXTREMITIES: 1 to 2+ edema. SKIN: No rashes. Very pale, slightly jaundiced. ENDOCRINE: No thyromegaly. LYMPHATICS: No cervical nodes. HEMATOPOIETIC: No bruising. NEUROLOGICAL: He pupils are equally reactive to light and accommodation. LABORATORY DATA: White count 19, hemoglobin 11.6, and platelets 269. Electrolytes: Sodium 134, potassium 5.6, chloride 94, bicarbonate 15, BUN 71, creatinine 4, glucose 116, and troponin 31. Creatine kinase 3379. ASSESSMENT AND PLAN: Respiratory failure, multifactorial with probable sepsis and probable myocardial infarction, acute on chronic systolic and diastolic heart failure, renal failure. Basically, she has multi-organ failure. Prognosis is quite guarded. She is critically ill. She is in the ICU on 2 pressors. Consult Pulmonary Medicine, consult Cardiology, consult Infectious Disease. IV antibiotics, fluid resuscitation, frequent labs. PROGNOSIS: Guarded. OLIVIA MIR DO DR: ALEJO/laura JOB#: [id number] / [id number]
[2017-02-17] MEDS ORDERED: ALBUMIN HUMAN 25% 50 ML IV ONE (18:45)
[2017-02-17] MEDS: CHLORHEXIDINE 0.12% 15 ML MOUTHWASH. SWSP SCH (20:34)
[2017-02-17] MEDS: IV NORMAL SALINE 1000ML BAG 1,000 ML IV SCH (20:35)
--- NOTE | 2017-02-17 22:54 | PDOC2 ---
DATE OF CONSULT Date of Consult 02/17/2017 REASON FOR CONSULT Reason for Consult ARF CHIEF COMPLAINT Chief Complaint Problems Medical Problems: (1) ARF (acute renal failure) Status: Acute (2) Cardiac failure Status: Acute (3) Respiratory failure Status: Acute SOURCE Source Family CURRENT PROBLEM LIST Problems: (1) Hypoxia (2) Respiratory failure (3) ARF (acute renal failure) PMH PMH HTN DM II CKD II/III OBESITY PSH PSH Unobtainable FAMILY HISTORY Family History Non contributory SOCIAL HISTORY Social History No tobacco, ETOH or recreational drugs CURRENT MEDICATIONS Current Meds Current Medications Medications (Trade) Dose Ordered Sig/Janeen Route PRN Reason Start Time Stop Time Status Last Admin Dose Admin Sodium Polystyrene Sulfonate (Kayexalate) 30 gm 1X ONCE PO 02/17/17 02:45 02/17/17 02:46 DC 02/17/17 03:54 Pantoprazole Sodium 40 mg 40 mg TID IVP 02/17/17 09:00 02/17/17 13:17 DC 02/17/17 08:56 Midazolam HCl 100 ml @ 0 mls/hr CONT PRN IV SEE I/O RECORD 02/17/17 02:30 02/17/17 20:34 Levothyroxine Sodium 37.5 mcg/ Sodium Chloride 5 ml @ 100 mls/hr DAILY IVP 02/17/17 09:00 02/17/17 08:57 Sodium Chloride 1,000 ml @ 100 mls/hr 1X ONCE IV 02/17/17 04:30 02/17/17 11:25 DC 02/17/17 04:25 Sodium Chloride 1,000 ml @ 100 mls/hr 1X ONCE IV 02/17/17 04:30 02/17/17 14:29 DC 02/17/17 04:25 Norepinephrine Bitartrate 250 ml @ 0 mls/hr CONT PRN IV SEE I/O RECORD 02/17/17 06:15 02/17/17 12:03 Sodium Chloride 1,000 ml @ 1,000 mls/hr 1X ONCE IV 02/17/17 08:15 02/17/17 09:14 DC 02/17/17 08:56 Piperacillin Sod/ Tazobactam Sod 2.25 gm/Sodium Chloride 50 ml @ 100 mls/hr Q8HRS IV 02/17/17 08:45 02/17/17 22:00 Magnesium Sulfate/ Dextrose (Magnesium Sulfate PREMIX 2GM) 50 ml @ 25 mls/hr 1X ONCE IV 02/17/17 09:00 02/17/17 10:59 DC 02/17/17 09:30 Fentanyl Citrate 50 mcg 50 mcg PRN Q2HR PRN IV PAIN 02/17/17 09:00 02/17/17 20:35 Sodium Chloride (Iv Sodium Chloride 0.9% 1000ml Bag) 1,000 ml @ 1,000 mls/hr 1X ONCE IV 02/17/17 09:00 02/17/17 09:59 DC 02/17/17 08:57 Sodium Bicarbonate 100 meq 100 meq 1X ONCE IV 02/17/17 09:45 02/17/17 09:48 DC 02/17/17 09:51 Sodium Bicarbonate 150 meq/Dextrose 1,150 ml @ 150 mls/hr Q7H40M IV 02/17/17 09:45 02/17/17 18:05 DC 02/17/17 10:34 Vasopressin/ Dextrose (Vasostrict) 102 ml @ 6 mls/hr ONCE ONCE IV 02/17/17 10:00 02/18/17 02:59 02/17/17 10:34 Vancomycin HCl (Vanco Per Pharmacy) 1 each PRN DAILY PRN MC SEE COMMENTS 02/17/17 10:15 02/17/17 10:28 Hydrocortisone Sodium Succinate 100 mg 100 mg ONCE ONCE IV 02/17/17 10:30 02/17/17 10:31 DC 02/17/17 10:36 Vancomycin HCl/ Sodium Chloride (Iv Sodium Chloride 0.9% 500ml Bag) 500 ml @ 250 mls/hr ONCE ONCE IV 02/17/17 10:30 02/17/17 12:29 DC 02/17/17 13:53 Hydrocortisone Sodium Succinate (Solu-Cortef) 100 mg Q8HRS IV 02/17/17 14:00 02/17/17 22:00 Chlorhexidine Gluconate 15 ml 15 ml BID SWSP 02/17/17 21:00 02/17/17 20:34 Sodium Chloride 1,000 ml @ 100 mls/hr Q10H IV 02/17/17 12:15 02/17/17 18:58 DC 02/17/17 13:53 Albumin Human 50 ml @ 50 mls/hr 1X ONCE IV 02/17/17 18:45 02/17/17 19:44 DC 02/17/17 18:58 Sodium Chloride (Iv Sodium Chloride 0.9% 1000ml Bag) 1,000 ml @ 125 mls/hr Q8H IV 02/17/17 19:00 02/17/17 20:35 ALLERGIES Allergies: Coded Allergies: Sulfa (Sulfonamide Antibiotics) (Verified Allergy, Severe, SWELLING MOSTLY ON LIPS, 02/14/17) ROS ROS GEN: [ ] Fevers [ ] Chills EYES: [ ] Visual Complaints ENT: [ ] EN Drainage [ ] Hearing deficiets CVS: [ ] Orthopnea [ ] CP RESP: [ ] SOB [ ] EPPERSON GI: [ ] Nausea [ ] Vomiting : [ ] Dysuria [ ] Urgency HEME: [ ] easy bruising [ ] Palp Ly Nodes NEURO [ ] Focal Weakness [ ] Sz PSYCH: [ ] Suicidal Ideation [ ] Depression SKIN: [ ] Rashes ENDO: [ ] Polyuria or Polydipsia [ ] Hot/Cold Intolerance MU SK: [ ] Arthraigia [ ] Myalgia VITAL SIGNS Vital Signs VS - Last 72 Hours, by Label Date Time Temp Pulse Resp B/P Pulse Ox O2 Delivery O2 Flow Rate FiO2 02/17/17 21:05 19 97 Ventilator 02/17/17 21:00 75 13 83/46 97 Ventilator 02/17/17 20:44 98 Ventilator 02/17/17 20:35 18 98 02/17/17 20:00 98.3 75 16 103/56 97 Ventilator 98.3 02/17/17 20:00 Mechanical Ventilator 02/17/17 20:00 74 103/56 02/17/17 19:00 74 16 103/54 97 Ventilator 02/17/17 18:27 73 14 92/51 98 Ventilator 02/17/17 17:33 72 14 130/70 96 Ventilator 02/17/17 17:01 72 14 118/64 98 Ventilator 02/17/17 16:09 97 Ventilator 02/17/17 16:06 Mechanical Ventilator 02/17/17 16:04 91/52 02/17/17 16:03 71 18 92/53 98 Ventilator 02/17/17 14:40 97.6 75 122/64 40 Ventilator 97.6 02/17/17 13:36 78 19 116/54 40 Ventilator 02/17/17 13:10 96 Ventilator 02/17/17 12:10 Mechanical Ventilator 02/17/17 12:08 102/52 02/17/17 12:08 96.7 76 19 103/53 40 Ventilator 96.7 02/17/17 11:32 75 18 96/50 40.0 02/17/17 11:28 78 18 92/50 96 40.0 02/17/17 11:17 96 Ventilator 02/17/17 11:00 78 18 92/50 40.0 02/17/17 10:30 76 18 96/52 40.0 02/17/17 10:10 78 18 88/44 96 40.0 02/17/17 10:00 80 18 86/44 40.0 02/17/17 09:55 76 18 70/40 40.0 02/17/17 09:50 78 18 90/44 96 40.0 02/17/17 09:31 18 40 02/17/17 09:30 76 18 120/60 40.0 02/17/17 09:00 78 18 114/68 40.0 02/17/17 08:18 Mechanical Ventilator 02/17/17 08:00 99.0 82 16 115/66 97 Ventilator 40.0 99.0 02/17/17 07:17 95 Ventilator 02/17/17 06:34 84 25 95/55 95 Ventilator 02/17/17 06:06 Mechanical Ventilator 02/17/17 06:02 97.6 30 102/81 96 97.6 02/17/17 05:58 98 Ventilator 02/17/17 05:00 76 25 113/70 95 Ventilator 02/17/17 04:26 97 Ventilator 02/17/17 04:00 75 25 99/61 95 Ventilator 02/17/17 04:00 Mechanical Ventilator 02/17/17 03:30 98.7 73 24 111/67 96 Ventilator 98.7 02/17/17 02:31 74 24 127/72 98 Ventilator 02/17/17 02:10 97 02/17/17 02:05 100 Ventilator 02/17/17 01:36 76 26 132/67 100 Ventilator 02/17/17 00:30 74 30 136/68 98 Ventilator 02/16/17 23:31 97.6 30 102/81 96 Ventilator 97.6 PHYSICAL EXAM Physical Exam Intubated. Neck : Supple Lungs : Decreased bases CVS : RRR Abd : Soft, portly. No masses. Ext : No edema. ASSESSMENT/PLAN Assessment/Plan ARF/ATN SEPSIS DM II and HTN w CKD ACUTE RESP FAILURE HYPOTENSION ACIDOSIS DC HCO3 HD support. ALBUMIN x 1 Labs I/Os Ext d/w daughter. Thank you. Dread Llamas M.D. Problem Qualifiers (1) Respiratory failure: Chronicity: acute Respiratory failure complication: hypercapnia Qualified Code: J96.02 - Acute respiratory failure with hypercapnia (2) ARF (acute renal failure): Acute renal failure type: with acute tubular necrosis Qualified Code: N17.0 - Acute kidney failure with tubular necrosis DREAD LLAMAS MD Feb 17, 2017 22:54
[2017-02-17] MEDS: VASOPRESSIN 40 UNIT in IV DEXTROSE 5% 100 ML IV PRN (23:08)
[2017-02-18] VITALS (28 sets, daily range): BP systolic 72–132; BP diastolic 46–88
[2017-02-18 01:08] LABS: HEP B SURFACE ABDY Non Reactive (.)
[2017-02-18 05:14] LABS: BASO % 0 % (0-3); EOS % 0 % (0-3); HEMATOCRIT 35.8 % (36.0-47.0); HEMOGLOBIN 10.9 g/dL (12.0-15.5); LYMPH # 0.3 x10^3/uL (1.0-4.8); LYMPH % 3 % (24-48); MEAN CORPUSCULAR HEMOGLOBIN 23 pg (25-35); MEAN CORPUSCULAR HGB CONC 30 g/dL (31-37); MEAN CORPUSCULAR VOLUME 76 fL (79-100); MONO % 5 % (0-9); NEUT % 92 % (31-73); PLATELET COUNT 188 x10^3/uL (140-400); RED CELL DISTRIBUTION WIDTH 21.5 % (11.5-14.5); WHITE BLOOD COUNT 12.4 x10^3/uL (4.0-11.0)
[2017-02-18 05:36] LABS: PROTHROMBIN TIME PATIENT 21.3 SEC (11.7-14.0)
[2017-02-18] MEDS: HYDROCORTISONE SOD SUCC/PF 100 MG/2 ML VIAL. IV SCH ×3 (05:42→21:49)
[2017-02-18] MEDS: IV NORMAL SALINE 1000ML BAG 1,000 ML IV SCH (05:42)
[2017-02-18] MEDS: PIPERACILLIN/TAZOBACTAM 2.25 GM in IV NORMAL SALINE 50ML 50 ML IV SCH ×3 (05:42→21:49)
[2017-02-18 05:43] LABS: CALCIUM 7.5 mg/dL (8.5-10.1); CREATININE 2.4 mg/dL (0.6-1.0); GFR 20.5; POTASSIUM 4.3 mmol/L (3.5-5.1); TOTAL BILIRUBIN 1.8 mg/dL (0.2-1.0); TOTAL PROTEIN 5.9 g/dL (6.4-8.2)
--- NOTE | 2017-02-18 06:10 | RAD ---
Bedside ultrasound-guided right IJ temporary hemodialysis catheter insertion Indication: 61-year-old female critically ill ICU patient with sepsis, acute renal failure, hypotension, and lactic acidosis. Urgent bedside temporary dialysis catheter insertion has been requested. Anesthesia: Local only Sterility: All elements of maximal sterile barrier technique, including the use of a cap, mask, sterile gown, sterile gloves, large sterile sheet, appropriate hand hygiene, and 2% chlorhexidine for cutaneous antisepsis (or acceptable alternative antiseptic per current guidelines) were utilized. Procedure: Informed consent was obtained from the patient's . This procedure was performed bedside in ICU. Preliminary ultrasound examination of right neck revealed wide patency of right internal jugular vein, which was documented with a single hard copy ultrasound image. Right neck was then prepped and draped in the usual sterile fashion, utilizing all elements of maximal sterile barrier technique, as described above. Using aseptic technique, local anesthesia, direct ultrasound guidance, and the micropuncture system, successful percutaneous entry was achieved into right internal jugular vein. The right IJ venostomy tract was then dilated and a 14 Romanian 20 cm temporary hemodialysis catheter was easily advanced centrally over an angiographic guidewire. The catheter was documented to flush and aspirate normally, was packed, and was secured at the right neck exit site utilizing suture and sterile dressing. Patient tolerated the procedure well without apparent complication. A stat portable chest x-ray was requested for line position. Impression: Successful, uneventful ultrasound guided placement of right IJ 14 Romanian 20 cm temporary hemodialysis catheter, bedside in ICU, as described.
--- NOTE | 2017-02-18 07:32 | PDOC ---
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 SKIN: No rash IV: Art line RUE/RIJ HD cath/Left subclavian Labs Lab Laboratory Tests Test 02/17/17 07:30 02/17/17 09:30 02/17/17 12:18 02/17/17 15:50 Prothrombin Time 24.0SEC (11.7-14.0) Prothromb Time International Ratio 2.3 (0.8-1.1) O2 Saturation 94% (92-99) Arterial Blood pH 7.14 (7.35-7.45) Arterial Blood pCO2 at Patient Temp 31mmHg (35-46) Arterial Blood pO2 at Patient Temp 96mmHg (65-108) Arterial Blood HCO3 10mmol/L (21-28) Arterial Blood Base Excess -18mmol/L (-3-3) FiO2 40 Glucose (Fingerstick) 143mg/dL (70-99) Lactic Acid Level 2.6mmol/L (0.4-2.0) Troponin I Quantitative 26.496ng/mL (0.000-0.055) Test 02/17/17 16:45 02/18/17 05:00 O2 Saturation 97% (92-99) Arterial Blood pH 7.48 (7.35-7.45) Arterial Blood pCO2 at Patient Temp 32mmHg (35-46) Arterial Blood pO2 at Patient Temp 105mmHg (65-108) Arterial Blood HCO3 23mmol/L (21-28) Arterial Blood Base Excess 0mmol/L (-3-3) FiO2 40 White Blood Count 12.4x10^3/uL (4.0-11.0) Red Blood Count 4.70x10^6/uL (3.50-5.40) Hemoglobin 10.9g/dL (12.0-15.5) Hematocrit 35.8% (36.0-47.0) Mean Corpuscular Volume 76fL (79-100) Mean Corpuscular Hemoglobin 23pg (25-35) Mean Corpuscular Hemoglobin Concent 30g/dL (31-37) Red Cell Distribution Width 21.5% (11.5-14.5) Platelet Count 188x10^3/uL (140-400) Neutrophils (%) (Auto) 92% (31-73) Lymphocytes (%) (Auto) 3% (24-48) Monocytes (%) (Auto) 5% (0-9) Eosinophils (%) (Auto) 0% (0-3) Basophils (%) (Auto) 0% (0-3) Neutrophils # (Auto) 11.4x10^3uL (1.8-7.7) Lymphocytes # (Auto) 0.3x10^3/uL (1.0-4.8) Monocytes # (Auto) 0.6x10^3/uL (0.0-1.1) Eosinophils # (Auto) 0.0x10^3/uL (0.0-0.7) Basophils # (Auto) 0.0x10^3/uL (0.0-0.2) Prothrombin Time 21.3SEC (11.7-14.0) Prothromb Time International Ratio 2.0 (0.8-1.1) Sodium Level 137mmol/L (136-145) Potassium Level 4.3mmol/L (3.5-5.1) Chloride Level 96mmol/L (98-107) Carbon Dioxide Level 21mmol/L (21-32) Anion Gap 20 (6-14) Blood Urea Nitrogen 47mg/dL (7-20) Creatinine 2.4mg/dL (0.6-1.0) Estimated GFR (Cockcroft-Gault) 20.5 BUN/Creatinine Ratio 20 (6-20) Glucose Level 222mg/dL (70-99) Lactic Acid Level 2.9mmol/L (0.4-2.0) Calcium Level 7.5mg/dL (8.5-10.1) Magnesium Level 1.6mg/dL (1.8-2.4) Total Bilirubin 1.8mg/dL (0.2-1.0) Aspartate Amino Transf (AST/SGOT) 591U/L (15-37) Alanine Aminotransferase (ALT/SGPT) 192U/L (14-59) Alkaline Phosphatase 111U/L (46-116) Total Protein 5.9g/dL (6.4-8.2) Albumin 3.0g/dL (3.4-5.0) Albumin/Globulin Ratio 1.0 (1.0-1.7) Objective Assessment ? sepsis vs SIRS. Did receive solumedrol in [facility]. On Solucortef NSTEMI ? Aspiration - intubated- h/o Pulm fibrosis Lactic acidosis - improved but now trending BRADLEY - dehydration. Getting HD Transaminitis H/o elevated CORA DM and gastroparesis Plan Plan of Care Dose Zosyn to cover Potential aspiration - did receive Azithro/Rocephin/ Solumedrol at [facility] F/u labs and cults May need further eval for ? autoimmune given elevated CORA 1:640 with homogenous patten in Nov 2014 but now on hydrocortisone Critically ill NICHOLAS SIDDIQUI MD Feb 18, 2017 07:32
[2017-02-18 07:44] LABS: HCO3 ABG 16 mmol/L (21-28); PCO2 ABG 25 mmHg (35-46); PH ABG 7.41 (7.35-7.45); PO2 ABG 101 mmHg (65-108); SAT O2 ABG 97 % (92-99)
[2017-02-18] MEDS ORDERED: IV NORMAL SALINE 1000ML BAG 1,000 ML IV PRN ×2 (07:47)
--- NOTE | 2017-02-18 07:51 | PDOC ---
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 salvager Vitals Vital Signs Vital Signs Date Time Temp Pulse Resp B/P Pulse Ox O2 Delivery O2 Flow Rate FiO2 02/18/17 06:00 78 17 102/53 98 Ventilator 02/18/17 04:00 98.8 98.8 02/17/17 11:32 40.0 Labs Last Labs Laboratory Tests Test 02/16/17 23:20 02/16/17 23:30 02/16/17 23:38 02/17/17 02:04 Nasal Screen MRSA (PCR) Negative (Negative) White Blood Count 19.4x10^3/uL (4.0-11.0) Red Blood Count 4.99x10^6/uL (3.50-5.40) Hemoglobin 11.6g/dL (12.0-15.5) Hematocrit 39.5% (36.0-47.0) Mean Corpuscular Volume 79fL (79-100) Mean Corpuscular Hemoglobin 23pg (25-35) Mean Corpuscular Hemoglobin Concent 30g/dL (31-37) Red Cell Distribution Width 21.6% (11.5-14.5) Platelet Count 269x10^3/uL (140-400) Neutrophils (%) (Auto) 80% (31-73) Lymphocytes (%) (Auto) 11% (24-48) Monocytes (%) (Auto) 8% (0-9) Eosinophils (%) (Auto) 0% (0-3) Basophils (%) (Auto) 0% (0-3) Neutrophils # (Auto) 15.6x10^3uL (1.8-7.7) Lymphocytes # (Auto) 2.1x10^3/uL (1.0-4.8) Monocytes # (Auto) 1.6x10^3/uL (0.0-1.1) Eosinophils # (Auto) 0.1x10^3/uL (0.0-0.7) Basophils # (Auto) 0.1x10^3/uL (0.0-0.2) Segmented Neutrophils % 71% (35-66) Band Neutrophils % 7% (0-9) Lymphocytes % 16% (24-48) Monocytes % 6% (0-10) Toxic Granulation Slight Toxic Vacuolation Slight Platelet Estimate Adequate (ADEQUATE) Large Platelets Occ Polychromasia Slight Hypochromasia Slight Poikilocytosis Slight Microcytosis Slight Macrocytosis Slight Prothrombin Time 23.0SEC (11.7-14.0) Prothromb Time International Ratio 2.2 (0.8-1.1) Sodium Level 134mmol/L (136-145) Potassium Level 5.2mmol/L (3.5-5.1) Chloride Level 95mmol/L (98-107) Carbon Dioxide Level 16mmol/L (21-32) Anion Gap 23 (6-14) Blood Urea Nitrogen 67mg/dL (7-20) Creatinine 3.9mg/dL (0.6-1.0) Estimated GFR (Cockcroft-Gault) 11.7 BUN/Creatinine Ratio 17 (6-20) Glucose Level 131mg/dL (70-99) Lactic Acid Level 8.9mmol/L (0.4-2.0) Calcium Level 8.5mg/dL (8.5-10.1) Phosphorus Level 9.1mg/dL (2.6-4.7) Magnesium Level 1.4mg/dL (1.8-2.4) Total Bilirubin 2.1mg/dL (0.2-1.0) Aspartate Amino Transf (AST/SGOT) 187U/L (15-37) Alanine Aminotransferase (ALT/SGPT) 66U/L (14-59) Alkaline Phosphatase 128U/L (46-116) Total Protein 6.5g/dL (6.4-8.2) Albumin 3.1g/dL (3.4-5.0) Albumin/Globulin Ratio 0.9 (1.0-1.7) Glucose (Fingerstick) 130mg/dL (70-99) O2 Saturation 99% (92-99) Arterial Blood pH 7.29 (7.35-7.45) Arterial Blood pCO2 at Patient Temp 26mmHg (35-46) Arterial Blood pO2 at Patient Temp 221mmHg (65-108) Arterial Blood HCO3 12mmol/L (21-28) Arterial Blood Base Excess -13mmol/L (-3-3) FiO2 70 Test 02/17/17 02:30 02/17/17 07:22 02/17/17 07:30 02/17/17 09:30 Lactic Acid Level 7.2mmol/L (0.4-2.0) 7.7mmol/L (0.4-2.0) White Blood Count 20.8x10^3/uL (4.0-11.0) Red Blood Count 5.19x10^6/uL (3.50-5.40) Hemoglobin 12.0g/dL (12.0-15.5) Hematocrit 40.3% (36.0-47.0) Mean Corpuscular Volume 78fL (79-100) Mean Corpuscular Hemoglobin 23pg (25-35) Mean Corpuscular Hemoglobin Concent 30g/dL (31-37) Red Cell Distribution Width 22.4% (11.5-14.5) Platelet Count 289x10^3/uL (140-400) Neutrophils (%) (Auto) 84% (31-73) Lymphocytes (%) (Auto) 8% (24-48) Monocytes (%) (Auto) 7% (0-9) Eosinophils (%) (Auto) 0% (0-3) Basophils (%) (Auto) 1% (0-3) Neutrophils # (Auto) 17.5x10^3uL (1.8-7.7) Lymphocytes # (Auto) 1.6x10^3/uL (1.0-4.8) Monocytes # (Auto) 1.5x10^3/uL (0.0-1.1) Eosinophils # (Auto) 0.1x10^3/uL (0.0-0.7) Basophils # (Auto) 0.2x10^3/uL (0.0-0.2) Sodium Level 134mmol/L (136-145) Potassium Level 5.6mmol/L (3.5-5.1) Chloride Level 94mmol/L (98-107) Carbon Dioxide Level 15mmol/L (21-32) Anion Gap 25 (6-14) Blood Urea Nitrogen 71mg/dL (7-20) Creatinine 4.0mg/dL (0.6-1.0) Estimated GFR (Cockcroft-Gault) 11.3 BUN/Creatinine Ratio 18 (6-20) Glucose Level 116mg/dL (70-99) Calcium Level 8.0mg/dL (8.5-10.1) Phosphorus Level 8.9mg/dL (2.6-4.7) Magnesium Level 1.4mg/dL (1.8-2.4) Total Bilirubin 2.1mg/dL (0.2-1.0) Aspartate Amino Transf (AST/SGOT) 295U/L (15-37) Alanine Aminotransferase (ALT/SGPT) 78U/L (14-59) Alkaline Phosphatase 136U/L (46-116) Creatine Kinase 3379U/L (26-192) Troponin I Quantitative 31.106ng/mL (0.000-0.055) Total Protein 6.9g/dL (6.4-8.2) Albumin 3.3g/dL (3.4-5.0) Albumin/Globulin Ratio 0.9 (1.0-1.7) Hepatitis B Surface Antigen Negative (Negative) Hepatitis B Surface Antibody Non reactive (.) Hepatitis B Core IgM Antibody Negative (Negative) Prothrombin Time 24.0SEC (11.7-14.0) Prothromb Time International Ratio 2.3 (0.8-1.1) O2 Saturation 94% (92-99) Arterial Blood pH 7.14 (7.35-7.45) Arterial Blood pCO2 at Patient Temp 31mmHg (35-46) Arterial Blood pO2 at Patient Temp 96mmHg (65-108) Arterial Blood HCO3 10mmol/L (21-28) Arterial Blood Base Excess -18mmol/L (-3-3) FiO2 40 Test 02/17/17 12:18 02/17/17 15:50 02/17/17 16:45 02/18/17 05:00 Glucose (Fingerstick) 143mg/dL (70-99) Lactic Acid Level 2.6mmol/L (0.4-2.0) 2.9mmol/L (0.4-2.0) Troponin I Quantitative 26.496ng/mL (0.000-0.055) O2 Saturation 97% (92-99) Arterial Blood pH 7.48 (7.35-7.45) Arterial Blood pCO2 at Patient Temp 32mmHg (35-46) Arterial Blood pO2 at Patient Temp 105mmHg (65-108) Arterial Blood HCO3 23mmol/L (21-28) Arterial Blood Base Excess 0mmol/L (-3-3) FiO2 40 White Blood Count 12.4x10^3/uL (4.0-11.0) Red Blood Count 4.70x10^6/uL (3.50-5.40) Hemoglobin 10.9g/dL (12.0-15.5) Hematocrit 35.8% (36.0-47.0) Mean Corpuscular Volume 76fL (79-100) Mean Corpuscular Hemoglobin 23pg (25-35) Mean Corpuscular Hemoglobin Concent 30g/dL (31-37) Red Cell Distribution Width 21.5% (11.5-14.5) Platelet Count 188x10^3/uL (140-400) Neutrophils (%) (Auto) 92% (31-73) Lymphocytes (%) (Auto) 3% (24-48) Monocytes (%) (Auto) 5% (0-9) Eosinophils (%) (Auto) 0% (0-3) Basophils (%) (Auto) 0% (0-3) Neutrophils # (Auto) 11.4x10^3uL (1.8-7.7) Lymphocytes # (Auto) 0.3x10^3/uL (1.0-4.8) Monocytes # (Auto) 0.6x10^3/uL (0.0-1.1) Eosinophils # (Auto) 0.0x10^3/uL (0.0-0.7) Basophils # (Auto) 0.0x10^3/uL (0.0-0.2) Prothrombin Time 21.3SEC (11.7-14.0) Prothromb Time International Ratio 2.0 (0.8-1.1) Sodium Level 137mmol/L (136-145) Potassium Level 4.3mmol/L (3.5-5.1) Chloride Level 96mmol/L (98-107) Carbon Dioxide Level 21mmol/L (21-32) Anion Gap 20 (6-14) Blood Urea Nitrogen 47mg/dL (7-20) Creatinine 2.4mg/dL (0.6-1.0) Estimated GFR (Cockcroft-Gault) 20.5 BUN/Creatinine Ratio 20 (6-20) Glucose Level 222mg/dL (70-99) Calcium Level 7.5mg/dL (8.5-10.1) Magnesium Level 1.6mg/dL (1.8-2.4) Total Bilirubin 1.8mg/dL (0.2-1.0) Aspartate Amino Transf (AST/SGOT) 591U/L (15-37) Alanine Aminotransferase (ALT/SGPT) 192U/L (14-59) Alkaline Phosphatase 111U/L (46-116) Total Protein 5.9g/dL (6.4-8.2) Albumin 3.0g/dL (3.4-5.0) Albumin/Globulin Ratio 1.0 (1.0-1.7) Laboratory Tests Test 02/17/17 09:30 02/17/17 12:18 02/17/17 15:50 02/17/17 16:45 O2 Saturation 94% (92-99) 97% (92-99) Arterial Blood pH 7.14 (7.35-7.45) 7.48 (7.35-7.45) Arterial Blood pCO2 at Patient Temp 31mmHg (35-46) 32mmHg (35-46) Arterial Blood pO2 at Patient Temp 96mmHg (65-108) 105mmHg (65-108) Arterial Blood HCO3 10mmol/L (21-28) 23mmol/L (21-28) Arterial Blood Base Excess -18mmol/L (-3-3) 0mmol/L (-3-3) FiO2 40 40 Glucose (Fingerstick) 143mg/dL (70-99) Lactic Acid Level 2.6mmol/L (0.4-2.0) Troponin I Quantitative 26.496ng/mL (0.000-0.055) Test 02/18/17 05:00 White Blood Count 12.4x10^3/uL (4.0-11.0) Red Blood Count 4.70x10^6/uL (3.50-5.40) Hemoglobin 10.9g/dL (12.0-15.5) Hematocrit 35.8% (36.0-47.0) Mean Corpuscular Volume 76fL (79-100) Mean Corpuscular Hemoglobin 23pg (25-35) Mean Corpuscular Hemoglobin Concent 30g/dL (31-37) Red Cell Distribution Width 21.5% (11.5-14.5) Platelet Count 188x10^3/uL (140-400) Neutrophils (%) (Auto) 92% (31-73) Lymphocytes (%) (Auto) 3% (24-48) Monocytes (%) (Auto) 5% (0-9) Eosinophils (%) (Auto) 0% (0-3) Basophils (%) (Auto) 0% (0-3) Neutrophils # (Auto) 11.4x10^3uL (1.8-7.7) Lymphocytes # (Auto) 0.3x10^3/uL (1.0-4.8) Monocytes # (Auto) 0.6x10^3/uL (0.0-1.1) Eosinophils # (Auto) 0.0x10^3/uL (0.0-0.7) Basophils # (Auto) 0.0x10^3/uL (0.0-0.2) Prothrombin Time 21.3SEC (11.7-14.0) Prothromb Time International Ratio 2.0 (0.8-1.1) Sodium Level 137mmol/L (136-145) Potassium Level 4.3mmol/L (3.5-5.1) Chloride Level 96mmol/L (98-107) Carbon Dioxide Level 21mmol/L (21-32) Anion Gap 20 (6-14) Blood Urea Nitrogen 47mg/dL (7-20) Creatinine 2.4mg/dL (0.6-1.0) Estimated GFR (Cockcroft-Gault) 20.5 BUN/Creatinine Ratio 20 (6-20) Glucose Level 222mg/dL (70-99) Lactic Acid Level 2.9mmol/L (0.4-2.0) Calcium Level 7.5mg/dL (8.5-10.1) Magnesium Level 1.6mg/dL (1.8-2.4) Total Bilirubin 1.8mg/dL (0.2-1.0) Aspartate Amino Transf (AST/SGOT) 591U/L (15-37) Alanine Aminotransferase (ALT/SGPT) 192U/L (14-59) Alkaline Phosphatase 111U/L (46-116) Total Protein 5.9g/dL (6.4-8.2) Albumin 3.0g/dL (3.4-5.0) Albumin/Globulin Ratio 1.0 (1.0-1.7) Assessment Assessment Problems Medical Problems: (1) ARF (acute renal failure) Status: Acute (2) Cardiac failure Status: Acute (3) Hypoxia Status: Acute (4) Respiratory failure Status: Acute Problems: Plan Plan of Care Problems Medical Problems: (1) ARF (acute renal failure) Status: Acute (2) Cardiac failure Status: Acute (3) Hypoxia Status: Acute (4) Respiratory failure Status: Acute DELLA AMEZQUITA MD Feb 18, 2017 07:50
[2017-02-18] MEDS ORDERED: ALBUMIN HUMAN 25% 200 ML IV PRN (08:00)
[2017-02-18] MEDS ORDERED: MAGNESIUM SULFATE 2GM 50 ML IV PRN (08:00)
[2017-02-18] MEDS ORDERED: LABETALOL 20 MG/4 ML DISP.SYRIN. IVP PRN (08:00)
[2017-02-18] MEDS ORDERED: ACETAMINOPHEN 500 MG TABLET PO PRN (08:00)
[2017-02-18] MEDS ORDERED: DIALYSIS PATIENT. MC PRN (08:00)
[2017-02-18] MEDS ORDERED: cloNIDine HCL 0.1 MG TABLET PO PRN (08:00)
[2017-02-18] MEDS ORDERED: diphenhydrAMINE 50 MG/ML VIAL IV PRN ×2 (08:00)
--- NOTE | 2017-02-18 08:33 | RAD ---
Abdominal ultrasound, 02/17/2017: History: Elevated liver function test The gallbladder is within normal limits in size. There is moderate edematous appearing mural thickening. No gallstones are seen. The common hepatic duct is nondilated. No hepatic mass is evident. The pancreas is poorly defined. The spleen is of normal size. No renal abnormality is detected. Much of the abdominal aorta and inferior vena cava were obscured by overlying bowel. No free fluid is evident in the abdomen. IMPRESSION: 1. Moderate edematous mural thickening of the gallbladder which can be due to a variety of causes including liver disease, hypoproteinemia, renal disease or cholecystitis. 2. No sonographic evidence of cholelithiasis. 3. Obscuration of the pancreas and central retroperitoneum due to overlying bowel.
[2017-02-18 08:44] LABS: FIO2 ABG 40
[2017-02-18 08:53] LABS: URIC ACID 8.4 mg/dL (2.6-6.0)
[2017-02-18] MEDS: CHLORHEXIDINE 0.12% 15 ML MOUTHWASH. SWSP SCH ×2 (09:00→21:48)
--- NOTE | 2017-02-18 09:27 | RAD ---
Portable chest, 02/18/2017: History: Respiratory failure Comparison is made yesterday study. The ET tube tip lies 2 cm above the sonia. A right jugular dialysis type catheter extends in the right atrium. An NG tube extends into the stomach. There has been a previous median sternotomy. The heart is at the upper limits of normal in size. There are persistent prominent reticulonodular opacities in the lungs which are unchanged. Much of this process may be chronic considering the findings evident on the 12/06/2014 CT study. No new pulmonary abnormality is seen. There is no evidence of pleural fluid or pneumothorax. IMPRESSION: No significant change since yesterday's study.
[2017-02-18] MEDS: PANTOPRAZOLE IV PUSH 40 MG VIAL. IVP SCH (11:15)
[2017-02-18] MEDS: NOREPINEPHRIN PREMIX 250 ML IV PRN (11:15)
--- NOTE | 2017-02-18 11:15 | CONS ---
DATE OF CONSULTATION: 02/17/2017 INFECTIOUS DISEASE CONSULTATION NOTE PATIENT'S ROOM: ICU 3. REQUESTING PHYSICIAN: Dr. Shaver. REASON FOR CONSULTATION: Elevated white blood cell count and lactic acidosis. HISTORY OF PRESENT ILLNESS: The patient is a 61-year-old female with a history of diabetes and gastroparesis, who also carries a history of known pulmonary fibrosis secondary to aspiration during a previous operation approximately 15 years ago or so. Per discussions with her , she developed increased swelling over the past couple of weeks and had increased her Lasix. She then had a scheduled EGD and colonoscopy performed on 02/14/2017 for evaluation of her ongoing gastroparesis and the need for a baseline colonoscopy. On Friday, she was feeling fine. On Friday, no complications until the evening when she began to feel ill. She had episodes of nausea. She had some vomiting, no blood, just regular fluids, but her said she took a prescribed pain medication that she had for over a year and a half. No fevers or chills. Denies any known ill contacts, but she became increasingly worse and short of air, and presented to [facility] on the in the evening. She had white count of 13.4, 8% segs, and 7 bands. Her creatinine had increased to 4. She had a baseline of 1 on the 04/01. Additionally, AST was 183, ALT was 70, creatinine kinase was 2506. Troponin was 9.087. Her ____ 10,171 and potassium was 6.3. She was given doses of azithromycin, Rocephin, and Solu-Medrol and then subsequently was intubated and transferred to [facility]. Lactic acid was 8.9. Potassium is 5.6, which is improved. Her phosphate is elevated at 8.9. Because of her lactic acidosis and her white blood cell count elevation, I have been consulted. PAST MEDICAL HISTORY: Positive for obesity, anxiety, diabetes, gastroparesis, hypertension, hypothyroidism, hepatitis, pulmonary fibrosis, and ankle injury. PAST SURGICAL HISTORY: Positive for tonsillectomy, tubal ligation, the above-mentioned EGD and colonoscopy, an excisional biopsy of the left elbow mass, and previous breast surgery for benign pathology. REVIEW OF SYSTEMS: Unobtainable. ALLERGIES: LISTED SULFA, UNCERTAIN WHAT HAPPENS WHEN SHE TAKES. SOCIAL HISTORY: She works in a ____ [employer]. She quit smoking about 12 years ago. No significant alcohol intake. They do have a dog at home that is healthy. FAMILY HISTORY: Positive for coronary artery disease. CURRENT MEDICATIONS: Again, she received Rocephin, azithromycin, Solu-Medrol at [facility]. Synthroid is listed with Levophed. Other meds are available and reviewed in the chart. PHYSICAL EXAMINATION: VITAL SIGNS: Temperature currently 99, axillary; pulse 82; respirations 16; blood pressure 115/66; satting 97% on 4 liters on clinical evaluation. HEENT: Her pupils are equal and reactive. She has normal conjunctivae. NECK: Supple. LUNGS: Some mild rhonchi. HEART: S1 and S2, tachycardic. ABDOMEN: Obese, soft, nontender. Decreased bowel sounds. [place] is in place. EXTREMITIES: No clubbing, cyanosis with trace edema. SKIN: Warm to touch without signs of rash. She has a left subclavian central line in place. LABORATORY DATA: White count 20.8, hemoglobin 12 and platelets of 289, 84 segs. Creatinine 4. Glucose 116. Lactic acid 7.7. AST 295, ALT 78, alkaline phosphatase 136. She has a history of positive CORA titer of 1:640 homogeneous positive. CORA-Hep-2 was also positive. The index is 22.7. DIAGNOSTIC DATA: Chest x-ray ____ without apparent complications, prominent lung markings of uncertain duration. IMPRESSION: 1. Questionable sepsis versus systemic inflammatory response syndrome: She did receive Solu-Medrol at [facility]. 2. Aspiration: She has been intubated, history pulmonary fibrosis. 3. Lactic acidosis. 4. Acute kidney injury and dehydration. 5. Elevated troponin. 6. History of elevated CORA. 7. Diabetic gastroparesis. RECOMMENDATIONS: For now, we will dose Zosyn to cover potential aspiration. Again, she did receive azithromycin, Rocephin, and Solu-Medrol at [facility]. We will follow up on labs and cultures. We will repeat her troponin and her creatinine kinase. She may need further evaluation of autoimmune given her elevated CORA. We will await Renal, Cardiology and Pulmonary followup. I reviewed [facility] records, discussed with the ; she is critically ill and may need dialysis. Thank you Dr. ____ for asking us to participate in this patient's care. Please do not hesitate to contact me. I spent 35 minutes critical care time. NICHOLAS SIDDIQUI MD DR: CRISTINA/laura JOB#: [id number] / [id number]
[2017-02-18] MEDS: LEVOTHYROXINE SODIUM 37.5 MCG in IV NORMAL SALINE 50ML 5 ML IVP SCH (11:16)
[2017-02-18 11:25] LABS: % EOS 1 % (0-5); PLT ESTIMATE ADEQUATE (ADEQUATE)
[2017-02-18 11:45] LABS: BILIRUBIN,URINE SMALL (NEG); GLUCOSE,URINE NEGATIVE (NEG); PROTEIN,URINE 30 mg/dL (NEG-TRACE)
[2017-02-18 11:46] LABS: BACTERIA,URINE FEW /HPF (0-FEW); NITRITE,URINE NEGATIVE (NEG)
[2017-02-18] MEDS ORDERED: PROPOFOL 100 ML IV ONE (11:47)
--- NOTE | 2017-02-18 12:08 | PDOC ---
PULMONARY PROGRESS NOTES Subjective SEDATED ON DIPRIVAN Vitals Vital Signs Date Time Temp Pulse Resp B/P Pulse Ox O2 Delivery O2 Flow Rate FiO2 02/18/17 11:17 97 Ventilator 02/18/17 11:00 78 18 120/62 02/18/17 07:50 99.0 99.0 02/17/17 11:32 40.0 Lungs: Clear Cardiovascular: S1, S2 Abdomen: Soft Extremities: No Edema Skin: Warm Labs Laboratory Tests Test 02/16/17 23:20 02/16/17 23:30 02/16/17 23:38 02/17/17 02:04 Nasal Screen MRSA (PCR) Negative (Negative) White Blood Count 19.4x10^3/uL (4.0-11.0) Red Blood Count 4.99x10^6/uL (3.50-5.40) Hemoglobin 11.6g/dL (12.0-15.5) Hematocrit 39.5% (36.0-47.0) Mean Corpuscular Volume 79fL (79-100) Mean Corpuscular Hemoglobin 23pg (25-35) Mean Corpuscular Hemoglobin Concent 30g/dL (31-37) Red Cell Distribution Width 21.6% (11.5-14.5) Platelet Count 269x10^3/uL (140-400) Neutrophils (%) (Auto) 80% (31-73) Lymphocytes (%) (Auto) 11% (24-48) Monocytes (%) (Auto) 8% (0-9) Eosinophils (%) (Auto) 0% (0-3) Basophils (%) (Auto) 0% (0-3) Neutrophils # (Auto) 15.6x10^3uL (1.8-7.7) Lymphocytes # (Auto) 2.1x10^3/uL (1.0-4.8) Monocytes # (Auto) 1.6x10^3/uL (0.0-1.1) Eosinophils # (Auto) 0.1x10^3/uL (0.0-0.7) Basophils # (Auto) 0.1x10^3/uL (0.0-0.2) Segmented Neutrophils % 71% (35-66) Band Neutrophils % 7% (0-9) Lymphocytes % 16% (24-48) Monocytes % 6% (0-10) Toxic Granulation Slight Toxic Vacuolation Slight Platelet Estimate Adequate (ADEQUATE) Large Platelets Occ Polychromasia Slight Hypochromasia Slight Poikilocytosis Slight Microcytosis Slight Macrocytosis Slight Prothrombin Time 23.0SEC (11.7-14.0) Prothromb Time International Ratio 2.2 (0.8-1.1) Sodium Level 134mmol/L (136-145) Potassium Level 5.2mmol/L (3.5-5.1) Chloride Level 95mmol/L (98-107) Carbon Dioxide Level 16mmol/L (21-32) Anion Gap 23 (6-14) Blood Urea Nitrogen 67mg/dL (7-20) Creatinine 3.9mg/dL (0.6-1.0) Estimated GFR (Cockcroft-Gault) 11.7 BUN/Creatinine Ratio 17 (6-20) Glucose Level 131mg/dL (70-99) Lactic Acid Level 8.9mmol/L (0.4-2.0) Calcium Level 8.5mg/dL (8.5-10.1) Phosphorus Level 9.1mg/dL (2.6-4.7) Magnesium Level 1.4mg/dL (1.8-2.4) Total Bilirubin 2.1mg/dL (0.2-1.0) Aspartate Amino Transf (AST/SGOT) 187U/L (15-37) Alanine Aminotransferase (ALT/SGPT) 66U/L (14-59) Alkaline Phosphatase 128U/L (46-116) Total Protein 6.5g/dL (6.4-8.2) Albumin 3.1g/dL (3.4-5.0) Albumin/Globulin Ratio 0.9 (1.0-1.7) Glucose (Fingerstick) 130mg/dL (70-99) O2 Saturation 99% (92-99) Arterial Blood pH 7.29 (7.35-7.45) Arterial Blood pCO2 at Patient Temp 26mmHg (35-46) Arterial Blood pO2 at Patient Temp 221mmHg (65-108) Arterial Blood HCO3 12mmol/L (21-28) Arterial Blood Base Excess -13mmol/L (-3-3) FiO2 70 Test 02/17/17 02:30 02/17/17 07:22 02/17/17 07:30 02/17/17 09:30 Lactic Acid Level 7.2mmol/L (0.4-2.0) 7.7mmol/L (0.4-2.0) White Blood Count 20.8x10^3/uL (4.0-11.0) Red Blood Count 5.19x10^6/uL (3.50-5.40) Hemoglobin 12.0g/dL (12.0-15.5) Hematocrit 40.3% (36.0-47.0) Mean Corpuscular Volume 78fL (79-100) Mean Corpuscular Hemoglobin 23pg (25-35) Mean Corpuscular Hemoglobin Concent 30g/dL (31-37) Red Cell Distribution Width 22.4% (11.5-14.5) Platelet Count 289x10^3/uL (140-400) Neutrophils (%) (Auto) 84% (31-73) Lymphocytes (%) (Auto) 8% (24-48) Monocytes (%) (Auto) 7% (0-9) Eosinophils (%) (Auto) 0% (0-3) Basophils (%) (Auto) 1% (0-3) Neutrophils # (Auto) 17.5x10^3uL (1.8-7.7) Lymphocytes # (Auto) 1.6x10^3/uL (1.0-4.8) Monocytes # (Auto) 1.5x10^3/uL (0.0-1.1) Eosinophils # (Auto) 0.1x10^3/uL (0.0-0.7) Basophils # (Auto) 0.2x10^3/uL (0.0-0.2) Sodium Level 134mmol/L (136-145) Potassium Level 5.6mmol/L (3.5-5.1) Chloride Level 94mmol/L (98-107) Carbon Dioxide Level 15mmol/L (21-32) Anion Gap 25 (6-14) Blood Urea Nitrogen 71mg/dL (7-20) Creatinine 4.0mg/dL (0.6-1.0) Estimated GFR (Cockcroft-Gault) 11.3 BUN/Creatinine Ratio 18 (6-20) Glucose Level 116mg/dL (70-99) Calcium Level 8.0mg/dL (8.5-10.1) Phosphorus Level 8.9mg/dL (2.6-4.7) Magnesium Level 1.4mg/dL (1.8-2.4) Total Bilirubin 2.1mg/dL (0.2-1.0) Aspartate Amino Transf (AST/SGOT) 295U/L (15-37) Alanine Aminotransferase (ALT/SGPT) 78U/L (14-59) Alkaline Phosphatase 136U/L (46-116) Creatine Kinase 3379U/L (26-192) Troponin I Quantitative 31.106ng/mL (0.000-0.055) Total Protein 6.9g/dL (6.4-8.2) Albumin 3.3g/dL (3.4-5.0) Albumin/Globulin Ratio 0.9 (1.0-1.7) Hepatitis B Surface Antigen Negative (Negative) Hepatitis B Surface Antibody Non reactive (.) Hepatitis B Core IgM Antibody Negative (Negative) Prothrombin Time 24.0SEC (11.7-14.0) Prothromb Time International Ratio 2.3 (0.8-1.1) O2 Saturation 94% (92-99) Arterial Blood pH 7.14 (7.35-7.45) Arterial Blood pCO2 at Patient Temp 31mmHg (35-46) Arterial Blood pO2 at Patient Temp 96mmHg (65-108) Arterial Blood HCO3 10mmol/L (21-28) Arterial Blood Base Excess -18mmol/L (-3-3) FiO2 40 Test 02/17/17 12:18 02/17/17 15:50 02/17/17 16:45 02/18/17 05:00 Glucose (Fingerstick) 143mg/dL (70-99) Lactic Acid Level 2.6mmol/L (0.4-2.0) 2.9mmol/L (0.4-2.0) Troponin I Quantitative 26.496ng/mL (0.000-0.055) O2 Saturation 97% (92-99) Arterial Blood pH 7.48 (7.35-7.45) Arterial Blood pCO2 at Patient Temp 32mmHg (35-46) Arterial Blood pO2 at Patient Temp 105mmHg (65-108) Arterial Blood HCO3 23mmol/L (21-28) Arterial Blood Base Excess 0mmol/L (-3-3) FiO2 40 White Blood Count 12.4x10^3/uL (4.0-11.0) Red Blood Count 4.70x10^6/uL (3.50-5.40) Hemoglobin 10.9g/dL (12.0-15.5) Hematocrit 35.8% (36.0-47.0) Mean Corpuscular Volume 76fL (79-100) Mean Corpuscular Hemoglobin 23pg (25-35) Mean Corpuscular Hemoglobin Concent 30g/dL (31-37) Red Cell Distribution Width 21.5% (11.5-14.5) Platelet Count 188x10^3/uL (140-400) Neutrophils (%) (Auto) 92% (31-73) Lymphocytes (%) (Auto) 3% (24-48) Monocytes (%) (Auto) 5% (0-9) Eosinophils (%) (Auto) 0% (0-3) Basophils (%) (Auto) 0% (0-3) Neutrophils # (Auto) 11.4x10^3uL (1.8-7.7) Lymphocytes # (Auto) 0.3x10^3/uL (1.0-4.8) Monocytes # (Auto) 0.6x10^3/uL (0.0-1.1) Eosinophils # (Auto) 0.0x10^3/uL (0.0-0.7) Basophils # (Auto) 0.0x10^3/uL (0.0-0.2) Segmented Neutrophils % 89% (35-66) Band Neutrophils % 5% (0-9) Lymphocytes % 2% (24-48) Monocytes % 3% (0-10) Eosinophils % 1% (0-5) Platelet Estimate Adequate (ADEQUATE) Prothrombin Time 21.3SEC (11.7-14.0) Prothromb Time International Ratio 2.0 (0.8-1.1) Sodium Level 137mmol/L (136-145) Potassium Level 4.3mmol/L (3.5-5.1) Chloride Level 96mmol/L (98-107) Carbon Dioxide Level 21mmol/L (21-32) Anion Gap 20 (6-14) Blood Urea Nitrogen 47mg/dL (7-20) Creatinine 2.4mg/dL (0.6-1.0) Estimated GFR (Cockcroft-Gault) 20.5 BUN/Creatinine Ratio 20 (6-20) Glucose Level 222mg/dL (70-99) Uric Acid 8.4mg/dL (2.6-6.0) Calcium Level 7.5mg/dL (8.5-10.1) Magnesium Level 1.6mg/dL (1.8-2.4) Total Bilirubin 1.8mg/dL (0.2-1.0) Aspartate Amino Transf (AST/SGOT) 591U/L (15-37) Alanine Aminotransferase (ALT/SGPT) 192U/L (14-59) Alkaline Phosphatase 111U/L (46-116) Creatine Kinase 2504U/L (26-192) Total Protein 5.9g/dL (6.4-8.2) Albumin 3.0g/dL (3.4-5.0) Albumin/Globulin Ratio 1.0 (1.0-1.7) Test 02/18/17 07:37 02/18/17 09:00 O2 Saturation 97% (92-99) Arterial Blood pH 7.41 (7.35-7.45) Arterial Blood pCO2 at Patient Temp 25mmHg (35-46) Arterial Blood pO2 at Patient Temp 101mmHg (65-108) Arterial Blood HCO3 16mmol/L (21-28) Arterial Blood Base Excess -8mmol/L (-3-3) FiO2 40 Urine Collection Type Unknown Urine Color Danelle Urine Clarity Cloudy Urine pH 5.0 Urine Specific [place] 1.020 Urine Protein 30mg/dL (NEG-TRACE) Urine Glucose (UA) Negativemg/dL (NEG) Urine Ketones (Stick) Negativemg/dL (NEG) Urine Blood Large (NEG) Urine Nitrite Negative (NEG) Urine Bilirubin Small (NEG) Urine Urobilinogen Dipstick 1.0mg/dL (0.2 mg/dL) Urine Leukocyte Esterase Small (NEG) Urine RBC 3-5/HPF (0-2) Urine WBC 1-4/HPF (0-4) Urine Squamous Epithelial Cells None/LPF Urine Bacteria Few/HPF (0-FEW) Laboratory Tests Test 02/17/17 12:18 02/17/17 15:50 02/17/17 16:45 02/18/17 05:00 Glucose (Fingerstick) 143mg/dL (70-99) Lactic Acid Level 2.6mmol/L (0.4-2.0) 2.9mmol/L (0.4-2.0) Troponin I Quantitative 26.496ng/mL (0.000-0.055) O2 Saturation 97% (92-99) Arterial Blood pH 7.48 (7.35-7.45) Arterial Blood pCO2 at Patient Temp 32mmHg (35-46) Arterial Blood pO2 at Patient Temp 105mmHg (65-108) Arterial Blood HCO3 23mmol/L (21-28) Arterial Blood Base Excess 0mmol/L (-3-3) FiO2 40 White Blood Count 12.4x10^3/uL (4.0-11.0) Red Blood Count 4.70x10^6/uL (3.50-5.40) Hemoglobin 10.9g/dL (12.0-15.5) Hematocrit 35.8% (36.0-47.0) Mean Corpuscular Volume 76fL (79-100) Mean Corpuscular Hemoglobin 23pg (25-35) Mean Corpuscular Hemoglobin Concent 30g/dL (31-37) Red Cell Distribution Width 21.5% (11.5-14.5) Platelet Count 188x10^3/uL (140-400) Neutrophils (%) (Auto) 92% (31-73) Lymphocytes (%) (Auto) 3% (24-48) Monocytes (%) (Auto) 5% (0-9) Eosinophils (%) (Auto) 0% (0-3) Basophils (%) (Auto) 0% (0-3) Neutrophils # (Auto) 11.4x10^3uL (1.8-7.7) Lymphocytes # (Auto) 0.3x10^3/uL (1.0-4.8) Monocytes # (Auto) 0.6x10^3/uL (0.0-1.1) Eosinophils # (Auto) 0.0x10^3/uL (0.0-0.7) Basophils # (Auto) 0.0x10^3/uL (0.0-0.2) Segmented Neutrophils % 89% (35-66) Band Neutrophils % 5% (0-9) Lymphocytes % 2% (24-48) Monocytes % 3% (0-10) Eosinophils % 1% (0-5) Platelet Estimate Adequate (ADEQUATE) Prothrombin Time 21.3SEC (11.7-14.0) Prothromb Time International Ratio 2.0 (0.8-1.1) Sodium Level 137mmol/L (136-145) Potassium Level 4.3mmol/L (3.5-5.1) Chloride Level 96mmol/L (98-107) Carbon Dioxide Level 21mmol/L (21-32) Anion Gap 20 (6-14) Blood Urea Nitrogen 47mg/dL (7-20) Creatinine 2.4mg/dL (0.6-1.0) Estimated GFR (Cockcroft-Gault) 20.5 BUN/Creatinine Ratio 20 (6-20) Glucose Level 222mg/dL (70-99) Uric Acid 8.4mg/dL (2.6-6.0) Calcium Level 7.5mg/dL (8.5-10.1) Magnesium Level 1.6mg/dL (1.8-2.4) Total Bilirubin 1.8mg/dL (0.2-1.0) Aspartate Amino Transf (AST/SGOT) 591U/L (15-37) Alanine Aminotransferase (ALT/SGPT) 192U/L (14-59) Alkaline Phosphatase 111U/L (46-116) Creatine Kinase 2504U/L (26-192) Total Protein 5.9g/dL (6.4-8.2) Albumin 3.0g/dL (3.4-5.0) Albumin/Globulin Ratio 1.0 (1.0-1.7) Test 02/18/17 07:37 02/18/17 09:00 O2 Saturation 97% (92-99) Arterial Blood pH 7.41 (7.35-7.45) Arterial Blood pCO2 at Patient Temp 25mmHg (35-46) Arterial Blood pO2 at Patient Temp 101mmHg (65-108) Arterial Blood HCO3 16mmol/L (21-28) Arterial Blood Base Excess -8mmol/L (-3-3) FiO2 40 Urine Collection Type Unknown Urine Color Danelle Urine Clarity Cloudy Urine pH 5.0 Urine Specific [place] 1.020 Urine Protein 30mg/dL (NEG-TRACE) Urine Glucose (UA) Negativemg/dL (NEG) Urine Ketones (Stick) Negativemg/dL (NEG) Urine Blood Large (NEG) Urine Nitrite Negative (NEG) Urine Bilirubin Small (NEG) Urine Urobilinogen Dipstick 1.0mg/dL (0.2 mg/dL) Urine Leukocyte Esterase Small (NEG) Urine RBC 3-5/HPF (0-2) Urine WBC 1-4/HPF (0-4) Urine Squamous Epithelial Cells None/LPF Urine Bacteria Few/HPF (0-FEW) Medications Active Scripts Medications Dose Route/Sig Days Date Category Requip (Ropinirole Hcl) 1 Mg Tablet 4 Mg PO DAILY 02/14/17 Reported Aspir 81 (Aspirin) 81 Mg Tablet.dr 81 Mg PO DAILY 02/14/17 Reported Wellbutrin Sr (Bupropion Hcl) 150 Mg Tablet.er 150 Mg PO DAILY 02/14/17 Reported Toprol Xl (Metoprolol Succinate) 25 Mg Tab.er.24h 12 Mg PO DAILY 02/14/17 Reported Lasix (Furosemide) 40 Mg Tablet 40 Mg PO DAILY 02/14/17 Reported Pravastatin Sodium 40 Mg Tablet 40 Mg PO DAILY 02/14/17 Reported Pantoprazole Sodium 40 Mg Tablet.dr 40 Mg PO DAILY 02/14/17 Reported [place] 7.5-325 Tablet (Acetaminophen/Hydrocodone Bitart) 1 Each Tablet 1 Tab PO PRN Q6HRS PRN 12/06/14 Rx Doxycycline Hyclate 100 Mg Capsule 1 Cap PO BID 12/06/14 Reported Hydrocodone-Apap 5-325 (Hydrocodone Bit/Acetaminophen) 1 Each Tablet 1-2 Tab PO Q4-6HRS PRN 12/06/14 Reported Levothyroxine Sodium 75 Mcg Tablet 1 Tab PO DAILY 12/05/14 Reported Citalopram Hbr (Citalopram Hydrobromide) 20 Mg Tablet 20 Mg PO DAILY 12/05/14 Reported Losartan Potassium 50 Mg Tablet 50 Mg PO DAILY 12/05/14 Reported Metformin Hcl 500 Mg Tablet 1 Tab PO TIDWMEALS 12/05/14 Reported Comments NO CHANGE Impression . 1. Acute respiratory failure secondary to SEPTIC SHOCK 2. SEPTIC SHOCK 3. Acute renal failure ON HD 4. 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 Not been on chronic steroids. 5. Marked anion gap metabolic acidosis secondary to septic shock./renal failure 6. non-ST myocardial infarction. SPOKE WITH CARD 7. Nutrition will start tube feeding 8. Abnormal cxr sec to pulmonary edema/ Pneumonia Plan . 1. Increase minute ventilation 2. Broad spectrum antibiotics, per ID 3. pressors as needed 4. Hemodialysis per nephro 5. Chest x-ray no change today 6. Follow all culture results. 7. change to dipivan for sedation 8. The patient's INR is already high and we will hold DVT prophylaxis. 9. Stress ulcer prophylaxis. 10. Hydrocortisone 100 mg IV q. 8 hours. 11. Echo report notede CCT 35 mniutes spoke with VITO FARRIS MD Feb 18, 2017 12:08
[2017-02-18] MEDS: PROPOFOL 100 ML IV PRN (12:40)
--- NOTE | 2017-02-18 12:40 | PDOC ---
Objective: Objective: No GI concerns per RN. Also d/w . Vital Signs: Vital Signs Date Time Temp Pulse Resp B/P Pulse Ox O2 Delivery O2 Flow Rate FiO2 02/18/17 12:00 98.3 81 17 92/49 100 Ventilator 98.3 02/17/17 11:32 40.0 Labs: Laboratory Tests Test 02/17/17 15:50 02/17/17 16:45 02/18/17 05:00 02/18/17 07:37 Lactic Acid Level 2.6mmol/L 2.9mmol/L Troponin I Quantitative 26.496ng/mL O2 Saturation 97% 97% Arterial Blood pH 7.48 7.41 Arterial Blood pCO2 at Patient Temp 32mmHg 25mmHg Arterial Blood pO2 at Patient Temp 105mmHg 101mmHg Arterial Blood HCO3 23mmol/L 16mmol/L Arterial Blood Base Excess 0mmol/L -8mmol/L FiO2 40 40 White Blood Count 12.4x10^3/uL Red Blood Count 4.70x10^6/uL Hemoglobin 10.9g/dL Hematocrit 35.8% Mean Corpuscular Volume 76fL Mean Corpuscular Hemoglobin 23pg Mean Corpuscular Hemoglobin Concent 30g/dL Red Cell Distribution Width 21.5% Platelet Count 188x10^3/uL Neutrophils (%) (Auto) 92% Lymphocytes (%) (Auto) 3% Monocytes (%) (Auto) 5% Eosinophils (%) (Auto) 0% Basophils (%) (Auto) 0% Neutrophils # (Auto) 11.4x10^3uL Lymphocytes # (Auto) 0.3x10^3/uL Monocytes # (Auto) 0.6x10^3/uL Eosinophils # (Auto) 0.0x10^3/uL Basophils # (Auto) 0.0x10^3/uL Segmented Neutrophils % 89% Band Neutrophils % 5% Lymphocytes % 2% Monocytes % 3% Eosinophils % 1% Platelet Estimate Adequate Prothrombin Time 21.3SEC Prothromb Time International Ratio 2.0 Sodium Level 137mmol/L Potassium Level 4.3mmol/L Chloride Level 96mmol/L Carbon Dioxide Level 21mmol/L Anion Gap 20 Blood Urea Nitrogen 47mg/dL Creatinine 2.4mg/dL Estimated GFR (Cockcroft-Gault) 20.5 BUN/Creatinine Ratio 20 Glucose Level 222mg/dL Uric Acid 8.4mg/dL Calcium Level 7.5mg/dL Magnesium Level 1.6mg/dL Total Bilirubin 1.8mg/dL Aspartate Amino Transf (AST/SGOT) 591U/L Alanine Aminotransferase (ALT/SGPT) 192U/L Alkaline Phosphatase 111U/L Creatine Kinase 2504U/L Total Protein 5.9g/dL Albumin 3.0g/dL Albumin/Globulin Ratio 1.0 Test 02/18/17 09:00 Urine Collection Type Unknown Urine Color Danelle Urine Clarity Cloudy Urine pH 5.0 Urine Specific [place] 1.020 Urine Protein 30mg/dL Urine Glucose (UA) Negativemg/dL Urine Ketones (Stick) Negativemg/dL Urine Blood Large Urine Nitrite Negative Urine Bilirubin Small Urine Urobilinogen Dipstick 1.0mg/dL Urine Leukocyte Esterase Small Urine RBC 3-5/HPF Urine WBC 1-4/HPF Urine Squamous Epithelial Cells None/LPF Urine Bacteria Few/HPF Imaging: Abd US IMPRESSION: 1. Moderate edematous mural thickening of the gallbladder which can be due to a variety of causes including liver disease, hypoproteinemia, renal disease or cholecystitis. 2. No sonographic evidence of cholelithiasis. 3. Obscuration of the pancreas and central retroperitoneum due to overlying bowel. CXR IMPRESSION: No significant change since yesterday's study. PE: GEN: intubated, OG+ LUNGS: clear anteriorly, vent HEART: RRR ABD: BS+, soft NEURO/PSYCH: sedated A/P: NSTEMI, resp failure, BRADLEY/CKD -intubated/sedated in ICU, on HD Leukocytosis, lactic acidosis - improved Abnormal LFTs - improved Chronic n/v/retching, suspected gastroparesis, DM -EGD and colonoscopy 02/14/17: chronic gastritis, hiatal hernia, sigmoid diverticulum, internal hemorrhoids -on IV PPI -not much OG output -- Continue same per GI. JF CENTENO Feb 18, 2017 12:40
[2017-02-18] MEDS: VASOPRESSIN 40 UNIT in IV DEXTROSE 5% 100 ML IV PRN (13:53)
--- NOTE | 2017-02-18 14:11 | PDOC ---
CARDIO Progress Notes Date and Time Date of Service 02/18/17 Time of Evaluation 1100 Subjective Subjective: Other (intubated/sedated ) Vitals Vitals Vital Signs Date Time Temp Pulse Resp B/P Pulse Ox O2 Delivery O2 Flow Rate FiO2 02/18/17 13:44 71 18 104/56 98 Ventilator 02/18/17 12:00 98.3 98.3 02/17/17 11:32 40.0 Weight Weight [ ] Input and Output Intake and Output Intake and Output 02/18/17 07:00 Intake Total 6811 ml Output Total 1456 ml Balance 5355 ml Intake IV Total 6811 ml Output Urine Total 956 ml Gastric Drainage Total 500 ml Laboratory Labs Laboratory Tests Test 02/17/17 15:50 02/17/17 16:45 02/18/17 05:00 02/18/17 07:37 Lactic Acid Level 2.6mmol/L (0.4-2.0) 2.9mmol/L (0.4-2.0) Troponin I Quantitative 26.496ng/mL (0.000-0.055) O2 Saturation 97% (92-99) 97% (92-99) Arterial Blood pH 7.48 (7.35-7.45) 7.41 (7.35-7.45) Arterial Blood pCO2 at Patient Temp 32mmHg (35-46) 25mmHg (35-46) Arterial Blood pO2 at Patient Temp 105mmHg (65-108) 101mmHg (65-108) Arterial Blood HCO3 23mmol/L (21-28) 16mmol/L (21-28) Arterial Blood Base Excess 0mmol/L (-3-3) -8mmol/L (-3-3) FiO2 40 40 White Blood Count 12.4x10^3/uL (4.0-11.0) Red Blood Count 4.70x10^6/uL (3.50-5.40) Hemoglobin 10.9g/dL (12.0-15.5) Hematocrit 35.8% (36.0-47.0) Mean Corpuscular Volume 76fL (79-100) Mean Corpuscular Hemoglobin 23pg (25-35) Mean Corpuscular Hemoglobin Concent 30g/dL (31-37) Red Cell Distribution Width 21.5% (11.5-14.5) Platelet Count 188x10^3/uL (140-400) Neutrophils (%) (Auto) 92% (31-73) Lymphocytes (%) (Auto) 3% (24-48) Monocytes (%) (Auto) 5% (0-9) Eosinophils (%) (Auto) 0% (0-3) Basophils (%) (Auto) 0% (0-3) Neutrophils # (Auto) 11.4x10^3uL (1.8-7.7) Lymphocytes # (Auto) 0.3x10^3/uL (1.0-4.8) Monocytes # (Auto) 0.6x10^3/uL (0.0-1.1) Eosinophils # (Auto) 0.0x10^3/uL (0.0-0.7) Basophils # (Auto) 0.0x10^3/uL (0.0-0.2) Segmented Neutrophils % 89% (35-66) Band Neutrophils % 5% (0-9) Lymphocytes % 2% (24-48) Monocytes % 3% (0-10) Eosinophils % 1% (0-5) Platelet Estimate Adequate (ADEQUATE) Prothrombin Time 21.3SEC (11.7-14.0) Prothromb Time International Ratio 2.0 (0.8-1.1) Sodium Level 137mmol/L (136-145) Potassium Level 4.3mmol/L (3.5-5.1) Chloride Level 96mmol/L (98-107) Carbon Dioxide Level 21mmol/L (21-32) Anion Gap 20 (6-14) Blood Urea Nitrogen 47mg/dL (7-20) Creatinine 2.4mg/dL (0.6-1.0) Estimated GFR (Cockcroft-Gault) 20.5 BUN/Creatinine Ratio 20 (6-20) Glucose Level 222mg/dL (70-99) Uric Acid 8.4mg/dL (2.6-6.0) Calcium Level 7.5mg/dL (8.5-10.1) Magnesium Level 1.6mg/dL (1.8-2.4) Total Bilirubin 1.8mg/dL (0.2-1.0) Aspartate Amino Transf (AST/SGOT) 591U/L (15-37) Alanine Aminotransferase (ALT/SGPT) 192U/L (14-59) Alkaline Phosphatase 111U/L (46-116) Creatine Kinase 2504U/L (26-192) Total Protein 5.9g/dL (6.4-8.2) Albumin 3.0g/dL (3.4-5.0) Albumin/Globulin Ratio 1.0 (1.0-1.7) Test 02/18/17 09:00 Urine Collection Type Unknown Urine Color Danelle Urine Clarity Cloudy Urine pH 5.0 Urine Specific [place] 1.020 Urine Protein 30mg/dL (NEG-TRACE) Urine Glucose (UA) Negativemg/dL (NEG) Urine Ketones (Stick) Negativemg/dL (NEG) Urine Blood Large (NEG) Urine Nitrite Negative (NEG) Urine Bilirubin Small (NEG) Urine Urobilinogen Dipstick 1.0mg/dL (0.2 mg/dL) Urine Leukocyte Esterase Small (NEG) Urine RBC 3-5/HPF (0-2) Urine WBC 1-4/HPF (0-4) Urine Squamous Epithelial Cells None/LPF Urine Bacteria Few/HPF (0-FEW) Physical Exam HEENT: Neck Supple W Full Motion Chest: Symmetric LUNGS: Other (mechanical ventilation) Heart: S1S2, RRR, other (distant heart tones ) Abdomen: Soft N/T Extremities: Other (1+ bilateral LE edema, diminished pedal pulses bilaterally ) Neurology: other (sedated ) Assessment Assessment 1. NSTEMI trop peak 31.1 echo last month with reportedly normal LV function repeat echo with preserved LV function with an EF of 55-60% INR 2.0- will recheck in am. Consider heparin gtt if INR <2.0 continue medical management 2. CAD s/p CABG at [facility] 04/2016 records not obtain- will refax hold BB and ARB with hypotension/BRADLEY. No statin with transaminitis. secondary prevention as able. 3. Acute on chronic respiratory failure with metabolic acidosis s/p intubation per pulm 4. Leukocytosis blood culture obtained at [facility] broad-spectrum antibiotic therapy initiated 4. Lactic acidosis with sepsis and hypovolemic shock s/p fluid resuscitation Levo off. requiring low-dose Vasopressin pressor support as warranted 5. Transaminitis secondary to shock 6. BRADLEY/ATN with CKD with electrolyte abnormalities HD began emergently 4/24 Mg replaced. Monitor lytes 7. Diabetes per PCP 8. Hypothyroidism AVELINO OSBORNE APRN Feb 18, 2017 14:11
--- NOTE | 2017-02-18 17:32 | PDOC ---
PROGRESS NOTES Chief Complaint Chief Complaint cc: Respiratory failure -NSTEMI -CAD -Septic shock -CABG -HLD -HTN -Tonsillectomy -Pulmonary fibrosis -FREDY -Obesity -Constipation -GERD -Breast excision -Tubal ligation -DM -Hypothyroidism -Anxiety -Smoking -Hepatitis A History of Present Illness History of Present Illness Ms. Betancourt was in bed and with a ventilator when we saw her. Her ventilator settings were as follows: A/C / f 18 / VT 500 / FiO2% 40. Her SpO2% was 98. She had mitts on her hands to protect IV access. She had norepinephrine and midazolam hanging from her IV rack. Her condition is guarded. Vitals Vitals Vital Signs Date Time Temp Pulse Resp B/P Pulse Ox O2 Delivery O2 Flow Rate FiO2 02/18/17 17:23 77 18 87/49 100 Ventilator 02/18/17 16:00 98.5 98.5 02/17/17 11:32 40.0 Physical Exam General: No acute distress, Other (This patient was on a ventilator.) Heart: Regular rate, Normal S1, Normal S2 Lungs: Clear, Other (No chest retractions were present.) Abdomen: Soft, No tenderness Extremities: No clubbing, No cyanosis Skin: No rashes, No breakdown, No significant lesion Labs LABS Laboratory Tests Test 02/18/17 05:00 02/18/17 07:37 02/18/17 09:00 White Blood Count 12.4x10^3/uL (4.0-11.0) Red Blood Count 4.70x10^6/uL (3.50-5.40) Hemoglobin 10.9g/dL (12.0-15.5) Hematocrit 35.8% (36.0-47.0) Mean Corpuscular Volume 76fL (79-100) Mean Corpuscular Hemoglobin 23pg (25-35) Mean Corpuscular Hemoglobin Concent 30g/dL (31-37) Red Cell Distribution Width 21.5% (11.5-14.5) Platelet Count 188x10^3/uL (140-400) Neutrophils (%) (Auto) 92% (31-73) Lymphocytes (%) (Auto) 3% (24-48) Monocytes (%) (Auto) 5% (0-9) Eosinophils (%) (Auto) 0% (0-3) Basophils (%) (Auto) 0% (0-3) Neutrophils # (Auto) 11.4x10^3uL (1.8-7.7) Lymphocytes # (Auto) 0.3x10^3/uL (1.0-4.8) Monocytes # (Auto) 0.6x10^3/uL (0.0-1.1) Eosinophils # (Auto) 0.0x10^3/uL (0.0-0.7) Basophils # (Auto) 0.0x10^3/uL (0.0-0.2) Segmented Neutrophils % 89% (35-66) Band Neutrophils % 5% (0-9) Lymphocytes % 2% (24-48) Monocytes % 3% (0-10) Eosinophils % 1% (0-5) Platelet Estimate Adequate (ADEQUATE) Prothrombin Time 21.3SEC (11.7-14.0) Prothromb Time International Ratio 2.0 (0.8-1.1) Sodium Level 137mmol/L (136-145) Potassium Level 4.3mmol/L (3.5-5.1) Chloride Level 96mmol/L (98-107) Carbon Dioxide Level 21mmol/L (21-32) Anion Gap 20 (6-14) Blood Urea Nitrogen 47mg/dL (7-20) Creatinine 2.4mg/dL (0.6-1.0) Estimated GFR (Cockcroft-Gault) 20.5 BUN/Creatinine Ratio 20 (6-20) Glucose Level 222mg/dL (70-99) Lactic Acid Level 2.9mmol/L (0.4-2.0) Uric Acid 8.4mg/dL (2.6-6.0) Calcium Level 7.5mg/dL (8.5-10.1) Magnesium Level 1.6mg/dL (1.8-2.4) Total Bilirubin 1.8mg/dL (0.2-1.0) Aspartate Amino Transf (AST/SGOT) 591U/L (15-37) Alanine Aminotransferase (ALT/SGPT) 192U/L (14-59) Alkaline Phosphatase 111U/L (46-116) Creatine Kinase 2504U/L (26-192) Total Protein 5.9g/dL (6.4-8.2) Albumin 3.0g/dL (3.4-5.0) Albumin/Globulin Ratio 1.0 (1.0-1.7) O2 Saturation 97% (92-99) Arterial Blood pH 7.41 (7.35-7.45) Arterial Blood pCO2 at Patient Temp 25mmHg (35-46) Arterial Blood pO2 at Patient Temp 101mmHg (65-108) Arterial Blood HCO3 16mmol/L (21-28) Arterial Blood Base Excess -8mmol/L (-3-3) FiO2 40 Urine Collection Type Unknown Urine Color Danelle Urine Clarity Cloudy Urine pH 5.0 Urine Specific [place] 1.020 Urine Protein 30mg/dL (NEG-TRACE) Urine Glucose (UA) Negativemg/dL (NEG) Urine Ketones (Stick) Negativemg/dL (NEG) Urine Blood Large (NEG) Urine Nitrite Negative (NEG) Urine Bilirubin Small (NEG) Urine Urobilinogen Dipstick 1.0mg/dL (0.2 mg/dL) Urine Leukocyte Esterase Small (NEG) Urine RBC 3-5/HPF (0-2) Urine WBC 1-4/HPF (0-4) Urine Squamous Epithelial Cells None/LPF Urine Bacteria Few/HPF (0-FEW) Review of Systems Review of Systems This portion of the exam was not conducted due to the patient being on a ventilator. Assessment and Plan Assessmemt and Plan Problems Medical Problems: (1) ARF (acute renal failure) Status: Acute (2) Cardiac failure Status: Acute (3) Hypoxia Status: Acute (4) Respiratory failure Status: Acute Assessment: Ms. Betancourt is a 61 year old female who presented with respiratory failure. -NSTEMI -CAD -Septic shock -CABG -HLD -HTN -Tonsillectomy -Pulmonary fibrosis -FREDY -Obesity -Constipation -GERD -Breast excision -Tubal ligation -DM -Hypothyroidism -Anxiety -Smoking -Hepatitis A Plan: 1. Recheck labs 2. PT/OT 3. Monitor magnesium and replace accordingly 4. Continue home medications 5. Continue hydrocortisone with positive CORA 6. Continue norepinephrine and vasopressin as needed for hypotension 7. Continue piperacillin/tazobactem 8. Appreciate consultation from IR, ID, pulmonology, cardiology, GI, and nephrology Her prognosis is guarded. Total time 31 minutes Problems: Comment Review of Relevant I have reviewed the following items trey (where applicable) has been applied. Labs Laboratory Tests Test 02/16/17 23:20 02/16/17 23:30 02/16/17 23:38 02/17/17 02:04 Nasal Screen MRSA (PCR) Negative (Negative) White Blood Count 19.4x10^3/uL (4.0-11.0) Red Blood Count 4.99x10^6/uL (3.50-5.40) Hemoglobin 11.6g/dL (12.0-15.5) Hematocrit 39.5% (36.0-47.0) Mean Corpuscular Volume 79fL (79-100) Mean Corpuscular Hemoglobin 23pg (25-35) Mean Corpuscular Hemoglobin Concent 30g/dL (31-37) Red Cell Distribution Width 21.6% (11.5-14.5) Platelet Count 269x10^3/uL (140-400) Neutrophils (%) (Auto) 80% (31-73) Lymphocytes (%) (Auto) 11% (24-48) Monocytes (%) (Auto) 8% (0-9) Eosinophils (%) (Auto) 0% (0-3) Basophils (%) (Auto) 0% (0-3) Neutrophils # (Auto) 15.6x10^3uL (1.8-7.7) Lymphocytes # (Auto) 2.1x10^3/uL (1.0-4.8) Monocytes # (Auto) 1.6x10^3/uL (0.0-1.1) Eosinophils # (Auto) 0.1x10^3/uL (0.0-0.7) Basophils # (Auto) 0.1x10^3/uL (0.0-0.2) Segmented Neutrophils % 71% (35-66) Band Neutrophils % 7% (0-9) Lymphocytes % 16% (24-48) Monocytes % 6% (0-10) Toxic Granulation Slight Toxic Vacuolation Slight Platelet Estimate Adequate (ADEQUATE) Large Platelets Occ Polychromasia Slight Hypochromasia Slight Poikilocytosis Slight Microcytosis Slight Macrocytosis Slight Prothrombin Time 23.0SEC (11.7-14.0) Prothromb Time International Ratio 2.2 (0.8-1.1) Sodium Level 134mmol/L (136-145) Potassium Level 5.2mmol/L (3.5-5.1) Chloride Level 95mmol/L (98-107) Carbon Dioxide Level 16mmol/L (21-32) Anion Gap 23 (6-14) Blood Urea Nitrogen 67mg/dL (7-20) Creatinine 3.9mg/dL (0.6-1.0) Estimated GFR (Cockcroft-Gault) 11.7 BUN/Creatinine Ratio 17 (6-20) Glucose Level 131mg/dL (70-99) Lactic Acid Level 8.9mmol/L (0.4-2.0) Calcium Level 8.5mg/dL (8.5-10.1) Phosphorus Level 9.1mg/dL (2.6-4.7) Magnesium Level 1.4mg/dL (1.8-2.4) Total Bilirubin 2.1mg/dL (0.2-1.0) Aspartate Amino Transf (AST/SGOT) 187U/L (15-37) Alanine Aminotransferase (ALT/SGPT) 66U/L (14-59) Alkaline Phosphatase 128U/L (46-116) Total Protein 6.5g/dL (6.4-8.2) Albumin 3.1g/dL (3.4-5.0) Albumin/Globulin Ratio 0.9 (1.0-1.7) Glucose (Fingerstick) 130mg/dL (70-99) O2 Saturation 99% (92-99) Arterial Blood pH 7.29 (7.35-7.45) Arterial Blood pCO2 at Patient Temp 26mmHg (35-46) Arterial Blood pO2 at Patient Temp 221mmHg (65-108) Arterial Blood HCO3 12mmol/L (21-28) Arterial Blood Base Excess -13mmol/L (-3-3) FiO2 70 Test 02/17/17 02:30 02/17/17 07:22 02/17/17 07:30 02/17/17 09:30 Lactic Acid Level 7.2mmol/L (0.4-2.0) 7.7mmol/L (0.4-2.0) White Blood Count 20.8x10^3/uL (4.0-11.0) Red Blood Count 5.19x10^6/uL (3.50-5.40) Hemoglobin 12.0g/dL (12.0-15.5) Hematocrit 40.3% (36.0-47.0) Mean Corpuscular Volume 78fL (79-100) Mean Corpuscular Hemoglobin 23pg (25-35) Mean Corpuscular Hemoglobin Concent 30g/dL (31-37) Red Cell Distribution Width 22.4% (11.5-14.5) Platelet Count 289x10^3/uL (140-400) Neutrophils (%) (Auto) 84% (31-73) Lymphocytes (%) (Auto) 8% (24-48) Monocytes (%) (Auto) 7% (0-9) Eosinophils (%) (Auto) 0% (0-3) Basophils (%) (Auto) 1% (0-3) Neutrophils # (Auto) 17.5x10^3uL (1.8-7.7) Lymphocytes # (Auto) 1.6x10^3/uL (1.0-4.8) Monocytes # (Auto) 1.5x10^3/uL (0.0-1.1) Eosinophils # (Auto) 0.1x10^3/uL (0.0-0.7) Basophils # (Auto) 0.2x10^3/uL (0.0-0.2) Sodium Level 134mmol/L (136-145) Potassium Level 5.6mmol/L (3.5-5.1) Chloride Level 94mmol/L (98-107) Carbon Dioxide Level 15mmol/L (21-32) Anion Gap 25 (6-14) Blood Urea Nitrogen 71mg/dL (7-20) Creatinine 4.0mg/dL (0.6-1.0) Estimated GFR (Cockcroft-Gault) 11.3 BUN/Creatinine Ratio 18 (6-20) Glucose Level 116mg/dL (70-99) Calcium Level 8.0mg/dL (8.5-10.1) Phosphorus Level 8.9mg/dL (2.6-4.7) Magnesium Level 1.4mg/dL (1.8-2.4) Total Bilirubin 2.1mg/dL (0.2-1.0) Aspartate Amino Transf (AST/SGOT) 295U/L (15-37) Alanine Aminotransferase (ALT/SGPT) 78U/L (14-59) Alkaline Phosphatase 136U/L (46-116) Creatine Kinase 3379U/L (26-192) Troponin I Quantitative 31.106ng/mL (0.000-0.055) Total Protein 6.9g/dL (6.4-8.2) Albumin 3.3g/dL (3.4-5.0) Albumin/Globulin Ratio 0.9 (1.0-1.7) Hepatitis B Surface Antigen Negative (Negative) Hepatitis B Surface Antibody Non reactive (.) Hepatitis B Core IgM Antibody Negative (Negative) Prothrombin Time 24.0SEC (11.7-14.0) Prothromb Time International Ratio 2.3 (0.8-1.1) O2 Saturation 94% (92-99) Arterial Blood pH 7.14 (7.35-7.45) Arterial Blood pCO2 at Patient Temp 31mmHg (35-46) Arterial Blood pO2 at Patient Temp 96mmHg (65-108) Arterial Blood HCO3 10mmol/L (21-28) Arterial Blood Base Excess -18mmol/L (-3-3) FiO2 40 Test 02/17/17 12:18 02/17/17 15:50 02/17/17 16:45 02/18/17 05:00 Glucose (Fingerstick) 143mg/dL (70-99) Lactic Acid Level 2.6mmol/L (0.4-2.0) 2.9mmol/L (0.4-2.0) Troponin I Quantitative 26.496ng/mL (0.000-0.055) O2 Saturation 97% (92-99) Arterial Blood pH 7.48 (7.35-7.45) Arterial Blood pCO2 at Patient Temp 32mmHg (35-46) Arterial Blood pO2 at Patient Temp 105mmHg (65-108) Arterial Blood HCO3 23mmol/L (21-28) Arterial Blood Base Excess 0mmol/L (-3-3) FiO2 40 White Blood Count 12.4x10^3/uL (4.0-11.0) Red Blood Count 4.70x10^6/uL (3.50-5.40) Hemoglobin 10.9g/dL (12.0-15.5) Hematocrit 35.8% (36.0-47.0) Mean Corpuscular Volume 76fL (79-100) Mean Corpuscular Hemoglobin 23pg (25-35) Mean Corpuscular Hemoglobin Concent 30g/dL (31-37) Red Cell Distribution Width 21.5% (11.5-14.5) Platelet Count 188x10^3/uL (140-400) Neutrophils (%) (Auto) 92% (31-73) Lymphocytes (%) (Auto) 3% (24-48) Monocytes (%) (Auto) 5% (0-9) Eosinophils (%) (Auto) 0% (0-3) Basophils (%) (Auto) 0% (0-3) Neutrophils # (Auto) 11.4x10^3uL (1.8-7.7) Lymphocytes # (Auto) 0.3x10^3/uL (1.0-4.8) Monocytes # (Auto) 0.6x10^3/uL (0.0-1.1) Eosinophils # (Auto) 0.0x10^3/uL (0.0-0.7) Basophils # (Auto) 0.0x10^3/uL (0.0-0.2) Segmented Neutrophils % 89% (35-66) Band Neutrophils % 5% (0-9) Lymphocytes % 2% (24-48) Monocytes % 3% (0-10) Eosinophils % 1% (0-5) Platelet Estimate Adequate (ADEQUATE) Prothrombin Time 21.3SEC (11.7-14.0) Prothromb Time International Ratio 2.0 (0.8-1.1) Sodium Level 137mmol/L (136-145) Potassium Level 4.3mmol/L (3.5-5.1) Chloride Level 96mmol/L (98-107) Carbon Dioxide Level 21mmol/L (21-32) Anion Gap 20 (6-14) Blood Urea Nitrogen 47mg/dL (7-20) Creatinine 2.4mg/dL (0.6-1.0) Estimated GFR (Cockcroft-Gault) 20.5 BUN/Creatinine Ratio 20 (6-20) Glucose Level 222mg/dL (70-99) Uric Acid 8.4mg/dL (2.6-6.0) Calcium Level 7.5mg/dL (8.5-10.1) Magnesium Level 1.6mg/dL (1.8-2.4) Total Bilirubin 1.8mg/dL (0.2-1.0) Aspartate Amino Transf (AST/SGOT) 591U/L (15-37) Alanine Aminotransferase (ALT/SGPT) 192U/L (14-59) Alkaline Phosphatase 111U/L (46-116) Creatine Kinase 2504U/L (26-192) Total Protein 5.9g/dL (6.4-8.2) Albumin 3.0g/dL (3.4-5.0) Albumin/Globulin Ratio 1.0 (1.0-1.7) Test 02/18/17 07:37 02/18/17 09:00 O2 Saturation 97% (92-99) Arterial Blood pH 7.41 (7.35-7.45) Arterial Blood pCO2 at Patient Temp 25mmHg (35-46) Arterial Blood pO2 at Patient Temp 101mmHg (65-108) Arterial Blood HCO3 16mmol/L (21-28) Arterial Blood Base Excess -8mmol/L (-3-3) FiO2 40 Urine Collection Type Unknown Urine Color Danelle Urine Clarity Cloudy Urine pH 5.0 Urine Specific [place] 1.020 Urine Protein 30mg/dL (NEG-TRACE) Urine Glucose (UA) Negativemg/dL (NEG) Urine Ketones (Stick) Negativemg/dL (NEG) Urine Blood Large (NEG) Urine Nitrite Negative (NEG) Urine Bilirubin Small (NEG) Urine Urobilinogen Dipstick 1.0mg/dL (0.2 mg/dL) Urine Leukocyte Esterase Small (NEG) Urine RBC 3-5/HPF (0-2) Urine WBC 1-4/HPF (0-4) Urine Squamous Epithelial Cells None/LPF Urine Bacteria Few/HPF (0-FEW) Laboratory Tests Test 02/18/17 05:00 02/18/17 07:37 02/18/17 09:00 White Blood Count 12.4x10^3/uL (4.0-11.0) Red Blood Count 4.70x10^6/uL (3.50-5.40) Hemoglobin 10.9g/dL (12.0-15.5) Hematocrit 35.8% (36.0-47.0) Mean Corpuscular Volume 76fL (79-100) Mean Corpuscular Hemoglobin 23pg (25-35) Mean Corpuscular Hemoglobin Concent 30g/dL (31-37) Red Cell Distribution Width 21.5% (11.5-14.5) Platelet Count 188x10^3/uL (140-400) Neutrophils (%) (Auto) 92% (31-73) Lymphocytes (%) (Auto) 3% (24-48) Monocytes (%) (Auto) 5% (0-9) Eosinophils (%) (Auto) 0% (0-3) Basophils (%) (Auto) 0% (0-3) Neutrophils # (Auto) 11.4x10^3uL (1.8-7.7) Lymphocytes # (Auto) 0.3x10^3/uL (1.0-4.8) Monocytes # (Auto) 0.6x10^3/uL (0.0-1.1) Eosinophils # (Auto) 0.0x10^3/uL (0.0-0.7) Basophils # (Auto) 0.0x10^3/uL (0.0-0.2) Segmented Neutrophils % 89% (35-66) Band Neutrophils % 5% (0-9) Lymphocytes % 2% (24-48) Monocytes % 3% (0-10) Eosinophils % 1% (0-5) Platelet Estimate Adequate (ADEQUATE) Prothrombin Time 21.3SEC (11.7-14.0) Prothromb Time International Ratio 2.0 (0.8-1.1) Sodium Level 137mmol/L (136-145) Potassium Level 4.3mmol/L (3.5-5.1) Chloride Level 96mmol/L (98-107) Carbon Dioxide Level 21mmol/L (21-32) Anion Gap 20 (6-14) Blood Urea Nitrogen 47mg/dL (7-20) Creatinine 2.4mg/dL (0.6-1.0) Estimated GFR (Cockcroft-Gault) 20.5 BUN/Creatinine Ratio 20 (6-20) Glucose Level 222mg/dL (70-99) Lactic Acid Level 2.9mmol/L (0.4-2.0) Uric Acid 8.4mg/dL (2.6-6.0) Calcium Level 7.5mg/dL (8.5-10.1) Magnesium Level 1.6mg/dL (1.8-2.4) Total Bilirubin 1.8mg/dL (0.2-1.0) Aspartate Amino Transf (AST/SGOT) 591U/L (15-37) Alanine Aminotransferase (ALT/SGPT) 192U/L (14-59) Alkaline Phosphatase 111U/L (46-116) Creatine Kinase 2504U/L (26-192) Total Protein 5.9g/dL (6.4-8.2) Albumin 3.0g/dL (3.4-5.0) Albumin/Globulin Ratio 1.0 (1.0-1.7) O2 Saturation 97% (92-99) Arterial Blood pH 7.41 (7.35-7.45) Arterial Blood pCO2 at Patient Temp 25mmHg (35-46) Arterial Blood pO2 at Patient Temp 101mmHg (65-108) Arterial Blood HCO3 16mmol/L (21-28) Arterial Blood Base Excess -8mmol/L (-3-3) FiO2 40 Urine Collection Type Unknown Urine Color Danelle Urine Clarity Cloudy Urine pH 5.0 Urine Specific [place] 1.020 Urine Protein 30mg/dL (NEG-TRACE) Urine Glucose (UA) Negativemg/dL (NEG) Urine Ketones (Stick) Negativemg/dL (NEG) Urine Blood Large (NEG) Urine Nitrite Negative (NEG) Urine Bilirubin Small (NEG) Urine Urobilinogen Dipstick 1.0mg/dL (0.2 mg/dL) Urine Leukocyte Esterase Small (NEG) Urine RBC 3-5/HPF (0-2) Urine WBC 1-4/HPF (0-4) Urine Squamous Epithelial Cells None/LPF Urine Bacteria Few/HPF (0-FEW) Medications Current Medications Sodium Polystyrene Sulfonate (Kayexalate) 30 gm 1X ONCE PO Last administered on 02/17/17t 03:54; Start 02/17/17 at 02:45; Stop 02/17/17 at 02:46; Status DC Ondansetron HCl (Zofran) 4 mg PRN Q6HRS PRN IV NAUSEA/VOMITING; Start 02/17/17 at 02:00 Pantoprazole Sodium (Protonix Vial) 40 mg TID IVP Last administered on 08:56; Start 02/17/17 at 09:00; Stop 02/17/17 at 13:17; Status DC Acetaminophen 650 mg 650 mg PRN Q6HRS PRN PO FEVER; Start 02/17/17 at 02:00 Midazolam HCl 100 ml @ 0 mls/hr CONT PRN IV SEE I/O RECORD Last administered on 02/17/17 20:34; Start 02/17/17 at 02:30 Levothyroxine Sodium 37.5 mcg/ Sodium Chloride 5 ml @ 100 mls/hr DAILY IVP Last administered on 02/18/17 11:16; Start 02/17/17 at 09:00 Sodium Chloride 1,000 ml @ 100 mls/hr 1X ONCE IV Last administered on 04:25; Start 02/17/17 at 04:30; Stop 02/17/17 at 11:25; Status DC Sodium Chloride (Iv Sodium Chloride 0.9% 1000ml Bag) 1,000 ml @ 100 mls/hr 1X ONCE IV Last administered on 02/17/17 04:25; Start 02/17/17 at 04:30; Stop at 09:15; Status DC Pneumococcal Polyvalent Vaccine (Do NOT chart on this placeholder) 1 each 1X ONCE MC ; Start 02/17/17 at 06:00; Stop 02/17/17 at 06:01; Status UNV Pneumococcal Polyvalent Vaccine 0.5 ml 0.5 ml ONCE ONCE VAX IM ; Start 02/17/17 at 09:00; Stop 02/17/17 at 09:01; Status DC Norepinephrine Bitartrate 250 ml @ 0 mls/hr CONT PRN IV SEE I/O RECORD Last administered on 02/18/17 11:15; Start 02/17/17 at 06:15 Sodium Chloride 1,000 ml @ 1,000 mls/hr 1X ONCE IV Last administered on 08:56; Start 02/17/17 at 08:15; Stop 02/17/17 at 09:14; Status DC Piperacillin Sod/ Tazobactam Sod 2.25 gm/Sodium Chloride 50 ml @ 100 mls/hr Q8HRS IV Last administered on 02/18/17 13:53; Start 02/17/17 at 08:45 Magnesium Sulfate/ Dextrose (Magnesium Sulfate PREMIX 2GM) 50 ml @ 25 mls/hr 1X ONCE IV Last administered on 02/17/17 09:30; Start 02/17/17 at 09:00; Stop 02/17/17 at 10:59; Status DC Fentanyl Citrate 50 mcg 50 mcg PRN Q2HR PRN IV PAIN Last administered on 20:35; Start 02/17/17 at 09:00 Sodium Chloride (Iv Sodium Chloride 0.9% 1000ml Bag) 1,000 ml @ 1,000 mls/hr 1X ONCE IV Last administered on 02/17/17 08:57; Start 02/17/17 at 09:00; Stop 02/17/17 at 09:59; Status DC Heparin Sodium (Porcine) (Heparin Sodium) 10,000 unit STK-MED ONCE .ROUTE ; Start 02/17/17 at 09:23; Stop 02/17/17 at 09:24; Status DC Lidocaine/Sodium Bicarbonate 20 ml 20 ml STK-MED ONCE IJ ; Start 02/17/17 at 09: 23; Stop 02/17/17 at 09:24; Status DC Heparin Sodium/ Sodium Chloride 500 ml @ As Directed STK-MED ONCE .ROUTE ; Start 02/17/17 at 09:23; Stop 02/17/17 at 09:24; Status DC Lidocaine/Sodium Bicarbonate (Buffered Lidocaine 1%) 3 ml 1X ONCE IJ ; Start at 09:30; Stop 02/17/17 at 09:35; Status DC Heparin Sodium/ Sodium Chloride 60 unit 1X ONCE IV ; Start 02/17/17 at 09:30; Stop 02/17/17 at 09:35; Status DC Heparin Sodium (Porcine) (Heparin Sodium) 2,500 unit 1X ONCE INT CAT ; Start at 09:30; Stop 02/17/17 at 09:35; Status DC Sodium Bicarbonate 50 meq STK-MED ONCE .ROUTE ; Start 02/17/17 at 09:42; Stop at 09:43; Status DC Sodium Bicarbonate 100 meq 100 meq 1X ONCE IV Last administered on 02/17/17 09:51; Start 02/17/17 at 09:45; Stop 02/17/17 at 09:48; Status DC Sodium Bicarbonate 150 meq/Dextrose 1,150 ml @ 150 mls/hr Q7H40M IV Last administered on 02/17/17 10:34; Start 02/17/17 at 09:45; Stop 02/17/17 at 18:05 ; Status DC Vasopressin/ Dextrose (Vasostrict) 102 ml @ 6 mls/hr ONCE ONCE IV Last administered on 02/17/17 10:34; Start 02/17/17 at 10:00; Stop 02/18/17 at 02:59 ; Status DC Hydrocortisone Sodium Succinate (Solu-Cortef) 100 mg Q8HRS IV ; Start 02/17/17 at 10:30; Stop 02/17/17 at 10:30; Status DC Vancomycin HCl (Vanco Per Pharmacy) 1 each PRN DAILY PRN MC SEE COMMENTS Last administered on 02/17/17 10:28; Start 02/17/17 at 10:15; Stop 02/18/17 at 12:50 ; Status DC Lidocaine/Sodium Bicarbonate (Buffered Lidocaine 1%) 3 ml 1X ONCE IJ ; Start at 10:15; Stop 02/17/17 at 10:16; Status DC Heparin Sodium/ Sodium Chloride 60 unit 1X ONCE IV ; Start 02/17/17 at 10:15; Stop 02/17/17 at 10:16; Status DC Heparin Sodium (Porcine) (Heparin Sodium) 2,500 unit 1X ONCE INT CAT ; Start at 10:15; Stop 02/17/17 at 10:16; Status DC Hydrocortisone Sodium Succinate 100 mg 100 mg ONCE ONCE IV Last administered on 02/17/17 10:36; Start 02/17/17 at 10:30; Stop 02/17/17 at 10:31; Status DC Vasopressin 40 unit/Dextrose 102 ml @ 6 mls/hr CONT PRN IV SEE I/O RECORD Last administered on 02/18/17 13:53; Start 02/17/17 at 10:15 Vancomycin HCl/ Sodium Chloride (Iv Sodium Chloride 0.9% 500ml Bag) 500 ml @ 250 mls/hr ONCE ONCE IV Last administered on 02/17/17 13:53; Start 02/17/17 at 10:30; Stop 02/17/17 at 12:29; Status DC Hydrocortisone Sodium Succinate (Solu-Cortef) 100 mg Q8HRS IV Last administered on 02/18/17 13:53; Start 02/17/17 at 14:00 Vancomycin HCl 1 each 1X ONCE MC ; Start 02/19/17 at 10:30; Stop 02/19/17 at 10 :30; Status DC Chlorhexidine Gluconate 15 ml 15 ml BID SWSP Last administered on 02/18/17 09: 00; Start 02/17/17 at 21:00 Sodium Chloride 1,000 ml @ 100 mls/hr Q10H IV Last administered on 02/17/17 13:53; Start 02/17/17 at 12:15; Stop 02/17/17 at 18:58; Status DC Sodium Chloride (Iv Sodium Chloride 0.9% 1000ml Bag) 1,000 ml @ 1,000 mls/hr Q1H PRN IV hypotension; Start 02/17/17 at 12:28; Stop 02/17/17 at 18:27; Status DC Sodium Chloride (Normal Saline Flush) 10 ml 1X PRN PRN IV AP catheter pack; Start 02/17/17 at 12:30; Stop 02/18/17 at 12:29; Status DC Sodium Chloride (Normal Saline Flush) 10 ml 1X PRN PRN IV NEUROLOGY DIRECTOR catheter pack; Start 02/17/17 at 12:30; Stop 02/18/17 at 12:29; Status DC Info (PHARMACY MONITORING -- do not chart) 1 each PRN DAILY PRN MC SEE COMMENTS ; Start 02/17/17 at 12:30 Info (PHARMACY MONITORING -- do not chart) 1 each PRN DAILY PRN MC SEE COMMENTS ; Start 02/17/17 at 12:30; Status UNV Pantoprazole Sodium 40 mg 40 mg DAILY IVP Last administered on 02/18/17 11:15 ; Start 02/18/17 at 09:00 Albumin Human 50 ml @ 50 mls/hr 1X ONCE IV Last administered on 02/17/17 18: 58; Start 02/17/17 at 18:45; Stop 02/17/17 at 19:44; Status DC Sodium Chloride 1,000 ml @ 125 mls/hr 1X ONCE IV ; Start 02/17/17 at 18:45; Stop 02/18/17 at 09:15; Status DC Sodium Chloride 1,000 ml @ 125 mls/hr Q8H IV Last administered on 02/18/17 05 :42; Start 02/17/17 at 19:00; Stop 02/18/17 at 09:15; Status DC Sodium Chloride 1,000 ml @ 1,000 mls/hr Q1H PRN IV hypotension; Start 02/18/17 at 07:47; Stop 02/18/17 at 13:46; Status DC Albumin Human (Albuminar) 200 ml @ 200 mls/hr 1X PRN PRN IV Hypotension; Start 02/18/17 at 08:00; Stop 02/18/17 at 13:59; Status DC Acetaminophen (Tylenol) 500 mg 1X PRN PRN PO MILD PAIN / TEMP; Start 02/18/17 at 08:00; Stop 02/19/17 at 07:59 Diphenhydramine HCl (Benadryl) 25 mg 1X PRN PRN IV ITCHING; Start 02/18/17 at 08:00; Stop 02/19/17 at 07:59 Diphenhydramine HCl (Benadryl) 25 mg 1X PRN PRN IV ITCHING; Start 02/18/17 at 08:00; Stop 02/19/17 at 07:59 Labetalol HCl (Normodyne) 10 mg PRN Q1HR PRN IVP SBP > 180; Start 02/18/17 at 08:00; Stop 02/19/17 at 07:59 Clonidine HCl 0.1 mg 0.1 mg 1X PRN PRN PO SBP > 180; Start 02/18/17 at 08:00; Stop 02/19/17 at 07:59 Sodium Chloride (Iv Sodium Chloride 0.9% 1000ml Bag) 1,000 ml @ 400 mls/hr Q2H30M PRN IV PATENCY; Start 02/18/17 at 07:47; Stop 02/18/17 at 19:46 Info 1 each 1 each PRN DAILY PRN MC SEE COMMENTS; Start 02/18/17 at 08:00; Status UNV Magnesium Sulfate/ Dextrose 50 ml @ 25 mls/hr PRN DAILY PRN IV for Mag < 1.7 on am labs Last administered on 02/18/17 11:16; Start 02/18/17 at 08:00 Propofol 100 ml @ As Directed STK-MED ONCE IV ; Start 02/18/17 at 11:47; Stop 02/18/17 at 11:48; Status DC Propofol (Diprivan) 100 ml @ 0 mls/hr CONT PRN IV SEE I/O RECORD Last administered on 02/18/17t 12:40; Start 02/18/17 at 12:45 Active Scripts Active [place] 7.5-325 Tablet (Acetaminophen/Hydrocodone Bitart) 1 Each Tablet 1 Tab PO PRN Q6HRS PRN Reported Requip (Ropinirole Hcl) 1 Mg Tablet 4 Mg PO DAILY Aspir 81 (Aspirin) 81 Mg Tablet.dr 81 Mg PO DAILY Wellbutrin Sr (Bupropion Hcl) 150 Mg Tablet.er 150 Mg PO DAILY Toprol Xl (Metoprolol Succinate) 25 Mg Tab.er.24h 12 Mg PO DAILY Lasix (Furosemide) 40 Mg Tablet 40 Mg PO DAILY Pravastatin Sodium 40 Mg Tablet 40 Mg PO DAILY Pantoprazole Sodium 40 Mg Tablet.dr 40 Mg PO DAILY Doxycycline Hyclate 100 Mg Capsule 1 Cap PO BID Hydrocodone-Apap 5-325 (Hydrocodone Bit/Acetaminophen) 1 Each Tablet 1-2 Tab PO Q4-6HRS PRN Levothyroxine Sodium 75 Mcg Tablet 1 Tab PO DAILY Citalopram Hbr (Citalopram Hydrobromide) 20 Mg Tablet 20 Mg PO DAILY Losartan Potassium 50 Mg Tablet 50 Mg PO DAILY Metformin Hcl 500 Mg Tablet 1 Tab PO TIDWMEALS Vitals/I & O Vital Sign - Last 24 Hours 02/17/17 02/17/17 02/17/17 02/17/17 17:33 18:27 19:00 20:00 Pulse 72 73 74 74 Resp 14 14 16 B/P 130/70 92/51 103/54 103/56 Pulse Ox 96 98 97 O2 Delivery Ventilator Ventilator Ventilator 02/17/17 02/17/17 02/17/17 02/17/17 20:00 20:00 20:35 20:44 Temp 98.3 98.3 Pulse 75 Resp 16 18 B/P 103/56 Pulse Ox 97 98 98 O2 Delivery Mechanical Ventilator Ventilator Ventilator 02/17/17 02/17/17 02/17/17 02/17/17 21:00 21:05 22:00 23:00 Pulse 75 77 77 Resp 13 19 16 17 B/P 83/46 102/54 96/50 Pulse Ox 97 97 97 97 O2 Delivery Ventilator Ventilator Ventilator Ventilator 4/2402/17/17 02/18/17 02/18/17 23:35 23:59 00:00 00:00 Temp 99.0 99.0 Pulse 77 77 Resp 17 B/P 97/52 103/56 Pulse Ox 97 97 O2 Delivery Ventilator Mechanical Ventilator Ventilator 02/18/17 02/18/17 02/18/17 02/18/17 01:00 01:30 02:00 03:00 Pulse 77 76 77 Resp 17 17 17 B/P 103/54 101/55 105/88 Pulse Ox 98 98 98 98 O2 Delivery Ventilator Ventilator Ventilator Ventilator 02/18/17 02/18/17 02/18/17 02/18/17 03:40 04:00 04:00 04:00 Temp 98.8 98.8 Pulse 78 78 Resp 17 B/P 105/88 107/58 Pulse Ox 98 98 O2 Delivery Ventilator Ventilator Mechanical Ventilator 02/18/17 02/18/17 02/18/17 02/18/17 05:00 05:39 06:00 07:00 Temp 99.0 99.0 Pulse 78 78 82 Resp 17 17 17 B/P 109/56 102/53 132/63 Pulse Ox 98 97 98 98 O2 Delivery Ventilator Ventilator Ventilator Ventilator 02/18/17 02/18/17 02/18/17 02/18/17 07:50 07:56 08:00 08:00 Temp 99.0 99.0 Pulse 78 78 78 Resp 17 17 B/P 106/65 102/54 106/54 Pulse Ox 98 97 97 O2 Delivery Ventilator Ventilator Ventilator 02/18/17 02/18/17 02/18/17 02/18/17 08:00 09:00 09:45 10:00 Pulse 79 80 Resp 17 16 B/P 96/55 104/53 Pulse Ox 99 99 99 O2 Delivery Mechanical Ventilator Ventilator Ventilator Ventilator 02/18/17 02/18/17 02/18/17 02/18/17 11:00 11:17 12:00 12:00 Pulse 78 78 Resp 18 B/P 120/62 92/46 Pulse Ox 99 97 O2 Delivery Ventilator Ventilator Mechanical Ventilator 02/18/17 02/18/17 02/18/17 02/18/17 12:00 12:41 13:00 13:10 Temp 98.3 98.3 Pulse 81 72 73 Resp 17 17 18 B/P 92/49 108/59 108/58 Pulse Ox 100 100 98 97 O2 Delivery Ventilator Ventilator Ventilator Ventilator 02/18/17 02/18/17 02/18/17 02/18/17 13:44 14:05 14:30 15:00 Pulse 71 70 71 70 Resp 18 18 18 18 B/P 104/56 106/55 96/52 102/56 Pulse Ox 98 98 98 98 O2 Delivery Ventilator Ventilator Ventilator Ventilator 02/18/17 02/18/17 02/18/17 02/18/17 15:17 16:00 16:00 16:00 Temp 98.5 98.5 Pulse 74 74 Resp 17 B/P 97/53 97/53 Pulse Ox 97 97 O2 Delivery Ventilator Ventilator Mechanical Ventilator 02/18/17 02/18/17 17:00 17:23 Pulse 70 77 Resp 18 18 B/P 97/52 87/49 Pulse Ox 100 100 O2 Delivery Ventilator Ventilator Intake and Output 02/17/17 02/17/17 02/18/17 15:00 23:00 07:00 Intake Total 2105 ml 3026 ml 1680 ml Output Total 115 ml 871 ml 470 ml Balance 1990 ml 2155 ml 1210 ml Nutrition Consultation Dietary Evaluation: Comments: Rec. 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
[2017-02-19] VITALS (24 sets, daily range): BP systolic 88–174; BP diastolic 51–92
[2017-02-19] MEDS: INSULIN ASPART 300 UNITS/3 ML INSULN.PEN SQ SCH ×4 (00:49→18:24)
[2017-02-19] MEDS: PROPOFOL 100 ML IV PRN (02:47)
[2017-02-19 05:26] LABS: BASO % 0 % (0-3); EOS % 0 % (0-3); HEMATOCRIT 33.8 % (36.0-47.0); HEMOGLOBIN 10.6 g/dL (12.0-15.5); LYMPH # 0.3 x10^3/uL (1.0-4.8); LYMPH % 4 % (24-48); MEAN CORPUSCULAR HEMOGLOBIN 24 pg (25-35); MEAN CORPUSCULAR HGB CONC 31 g/dL (31-37); MEAN CORPUSCULAR VOLUME 75 fL (79-100); MONO % 5 % (0-9); NEUT % 90 % (31-73); PLATELET COUNT 127 x10^3/uL (140-400); RED BLOOD COUNT 4.48 x10^6/uL (3.50-5.40); RED CELL DISTRIBUTION WIDTH 21.5 % (11.5-14.5); WHITE BLOOD COUNT 8.4 x10^3/uL (4.0-11.0)
[2017-02-19] MEDS: PIPERACILLIN/TAZOBACTAM 2.25 GM in IV NORMAL SALINE 50ML 50 ML IV SCH ×3 (05:28→22:15)
[2017-02-19] MEDS: HYDROCORTISONE SOD SUCC/PF 100 MG/2 ML VIAL. IV SCH ×3 (05:28→22:16)
[2017-02-19 05:38] LABS: INR 1.9 (0.8-1.1); PROTHROMBIN TIME PATIENT 20.3 SEC (11.7-14.0)
[2017-02-19 05:49] LABS: ALBUMIN 1.7 g/dL (3.4-5.0); CREATININE 1.2 mg/dL (0.6-1.0); GFR 45.5; PHOSPHORUS 2.6 mg/dL (2.6-4.7)
[2017-02-19 05:58] LABS: CALCIUM 5.8 mg/dL (8.5-10.1)
[2017-02-19 05:59] LABS: POTASSIUM 2.8 mmol/L (3.5-5.1)
[2017-02-19 07:22] LABS: BASO % 0 % (0-3); EOS % 0 % (0-3); HEMATOCRIT 33.3 % (36.0-47.0); HEMOGLOBIN 10.4 g/dL (12.0-15.5); LYMPH # 0.4 x10^3/uL (1.0-4.8); LYMPH % 5 % (24-48); MEAN CORPUSCULAR HEMOGLOBIN 24 pg (25-35); MEAN CORPUSCULAR HGB CONC 31 g/dL (31-37); MEAN CORPUSCULAR VOLUME 76 fL (79-100); MONO % 5 % (0-9); NEUT % 91 % (31-73); PLATELET COUNT 137 x10^3/uL (140-400); RED CELL DISTRIBUTION WIDTH 22.3 % (11.5-14.5); WHITE BLOOD COUNT 8.2 x10^3/uL (4.0-11.0)
[2017-02-19 07:31] LABS: HCO3 ABG 26 mmol/L (21-28); PO2 ABG 74 mmHg (65-108); SAT O2 ABG 95 % (92-99)
[2017-02-19 07:39] LABS: CALCIUM 7.6 mg/dL (8.5-10.1); CREATININE 1.7 mg/dL (0.6-1.0); GFR 30.5; MAGNESIUM 2.1 mg/dL (1.8-2.4); POTASSIUM 3.9 mmol/L (3.5-5.1)
[2017-02-19] MEDS ORDERED: MAGNESIUM SULFATE 2GM 50 ML IV PRN (07:45)
[2017-02-19] MEDS ORDERED: POTASSIUM CHLORIDE 20MEQ 50 ML IV PRN (07:45)
--- NOTE | 2017-02-19 07:47 | PDOC ---
SUBJECTIVE ROS BRADLEY/ ATN Remains intubated and sedated OBJECTIVE Vital Signs Vital Signs Date Time Temp Pulse Resp B/P Pulse Ox O2 Delivery O2 Flow Rate FiO2 02/19/17 06:00 78 17 115/59 100 Ventilator 02/19/17 05:00 98.9 98.9 I & 0 Intake and Output 02/19/17 06:59 Intake Total 2695 ml Output Total 815 ml Balance 1880 ml Intake IV Total 610 ml Tube Feeding 1885 ml Blood Product IV Normal Saline Flush 200 ml Output Urine Total 785 ml Gastric Drainage Total 30 ml # Bowel Movements 1 PHYSICAL EXAM Physical Exam GEN: SEdated and intubated; In no distress EYES: Sclera anicteric, Conjunctiva Normal EN: No EN Drainage, Mucous Membranes moist NECK: no JVD, no JVP, Supple, no Thyromegaly CVS: S1S2, no Murmur, No Gallop, No Rub,tr Edema RESP: rare Rales, no Rhonchi,no Acc. Muscle Use GI: BS + ve, NO Bruit, Non Tender, Non Distended : no CVA tenderness, no Suprapubic Tenderness SKIN: no visible Rashes Breast Exam deferred Mu.Sk: Adequate ROM no Muscle Atrophy Heme: Unable to palpate Obvious LAD no palp Splenomegaly NEURO: Good Strength and Tone Cranial Nerves II - XII grossly intact Psych: no Depressed no Active hallucination DIAGNOSIS/ASSESSMENT Assessment & Plan BRADLEY/ ATN: (? Element of Rhabdo) Current fluid and E-lyte status does not necessitate emergent need for dialysis. Will re-evaluate for dialysis in the am ? Underlying CKD III due to DM / HTNsive / NS cannot be ruled out Rhabdo - follow CK - no IVF due to ABN CXR Acidosis - Now resolved Oligo-anuria -now improving Low K - replace per sliding scale - suspect partially due to low Mag Low Mag - replace per sliding scale Low Ti - IV CalCl2 - ? due to low mag too Resp Failure - less likely to be due to fluid alone. HypoTN: remains on pressors for now repeat labs ordered (I feel they are diluted) and are pending Problems: COMMENT/RELEVANT DATA Meds Current Medications Medications (Trade) Dose Ordered Sig/Janeen Start Time Stop Time Status Last Admin Dose Admin Acetaminophen (Tylenol) 500 mg 1X PRN PRN 02/18/17 08:00 02/19/17 07:59 Acetaminophen 650 mg 650 mg PRN Q6HRS PRN 02/17/17 02:00 Albumin Human (Albuminar) 200 ml @ 200 mls/hr 1X PRN PRN 02/18/17 08:00 02/18/17 13:59 DC Chlorhexidine Gluconate (Peridex) 15 ml BID 02/17/17 21:00 02/18/17 21:48 15 ML Clonidine HCl 0.1 mg 0.1 mg 1X PRN PRN 02/18/17 08:00 02/19/17 07:59 Dextrose (Dextrose 50%-Water Syringe) 12.5 gm PRN Q15MIN PRN 02/18/17 21:00 Diphenhydramine HCl (Benadryl) 25 mg 1X PRN PRN 02/18/17 08:00 02/19/17 07:59 Fentanyl Citrate (Fentanyl 2ml Vial) 50 mcg PRN Q2HR PRN 02/17/17 09:00 02/17/17 20:35 50 MCG Heparin Sodium (Porcine) (Heparin Sodium) 2,500 unit 1X ONCE 02/17/17 10:15 02/17/17 10:16 DC Heparin Sodium/ Sodium Chloride 60 unit 1X ONCE 02/17/17 10:15 02/17/17 10:16 DC Hydrocortisone Sodium Succinate (Solu-Cortef) 100 mg Q8HRS 02/17/17 14:00 02/19/17 05:28 100 MG Hydrocortisone Sodium Succinate 100 mg 100 mg ONCE ONCE 02/17/17 10:30 02/17/17 10:31 DC 02/17/17 10:36 100 MG Info (PHARMACY MONITORING -- do not chart) 1 each PRN DAILY PRN 02/17/17 12:30 UNV Info 1 each 1 each PRN DAILY PRN 02/18/17 08:00 UNV Insulin Aspart (Novolog) 0-7 UNITS Q6HRS 02/19/17 00:00 02/19/17 05:32 6 UNITS Labetalol HCl (Normodyne) 10 mg PRN Q1HR PRN 02/18/17 08:00 02/19/17 07:59 Levothyroxine Sodium/Sodium Chloride (Synthroid/Iv Sodium Chloride 0.9% 50ml) 5 ml @ 100 mls/hr DAILY 02/17/17 09:00 02/18/17 11:16 100 MLS/HR Lidocaine/Sodium Bicarbonate (Buffered Lidocaine 1%) 3 ml 1X ONCE 02/17/17 10:15 02/17/17 10:16 DC Magnesium Sulfate/ Dextrose 50 ml @ 25 mls/hr PRN DAILY PRN 02/18/17 08:00 02/18/17 11:16 25 MLS/HR Magnesium Sulfate/ Dextrose (Magnesium Sulfate PREMIX 2GM) 50 ml @ 25 mls/hr 1X ONCE 02/17/17 09:00 02/17/17 10:59 DC 02/17/17 09:30 25 MLS/HR Midazolam HCl 100 ml @ 0 mls/hr CONT PRN 02/17/17 02:30 02/17/17 20:34 5 MLS/HR Norepinephrine Bitartrate 250 ml @ 0 mls/hr CONT PRN 02/17/17 06:15 02/18/17 11:15 7.5 MLS/HR Ondansetron HCl (Zofran) 4 mg PRN Q6HRS PRN 02/17/17 02:00 Pantoprazole Sodium (Protonix Vial) 40 mg TID 02/17/17 09:00 02/17/17 13:17 DC 02/17/17 08:56 40 MG Pantoprazole Sodium 40 mg 40 mg DAILY 02/18/17 09:00 02/18/17 11:15 40 MG Piperacillin Sod/ Tazobactam Sod 2.25 gm/Sodium Chloride 50 ml @ 100 mls/hr Q8HRS 02/17/17 08:45 02/19/17 05:28 100 MLS/HR Pneumococcal Polyvalent Vaccine 0.5 ml 0.5 ml ONCE ONCE 02/17/17 09:00 02/17/17 09:01 DC Pneumococcal Polyvalent Vaccine (Do NOT chart on this placeholder) 1 each 1X ONCE 02/17/17 06:00 02/17/17 06:01 UNV Propofol (Diprivan) 100 ml @ 0 mls/hr CONT PRN 02/18/17 12:45 02/19/17 02:47 5.117 MLS/HR Sodium Bicarbonate 100 meq 100 meq 1X ONCE 02/17/17 09:45 02/17/17 09:48 DC 02/17/17 09:51 100 MEQ Sodium Bicarbonate 150 meq/Dextrose 1,150 ml @ 150 mls/hr Q7H40M 02/17/17 09:45 02/17/17 18:05 DC 02/17/17 10:34 150 MLS/HR Sodium Polystyrene Sulfonate (Kayexalate) 30 gm 1X ONCE 02/17/17 02:45 02/17/17 02:46 DC 02/17/17 03:54 30 GM Sodium Bicarbonate 50 meq STK-MED ONCE 02/17/17 09:42 02/17/17 09:43 DC Sodium Chloride (Iv Sodium Chloride 0.9% 1000ml Bag) 1,000 ml @ 400 mls/hr Q2H30M PRN 02/18/17 07:47 02/18/17 19:46 DC Sodium Chloride (Normal Saline Flush) 10 ml 1X PRN PRN 02/17/17 12:30 02/18/17 12:29 DC Vancomycin HCl 1 each 1X ONCE 02/19/17 10:30 02/19/17 10:30 DC Vancomycin HCl (Vanco Per Pharmacy) 1 each PRN DAILY PRN 02/17/17 10:15 02/18/17 12:50 DC 02/17/17 10:28 1 EACH Vancomycin HCl/ Sodium Chloride (Iv Sodium Chloride 0.9% 500ml Bag) 500 ml @ 250 mls/hr ONCE ONCE 02/17/17 10:30 02/17/17 12:29 DC 02/17/17 13:53 250 MLS/HR Vasopressin 40 unit/Dextrose 102 ml @ 6 mls/hr CONT PRN 02/17/17 10:15 02/18/17 13:53 6 MLS/HR Vasopressin/ Dextrose (Vasostrict) 102 ml @ 6 mls/hr ONCE ONCE 02/17/17 10:00 02/18/17 02:59 DC 02/17/17 10:34 6 MLS/HR Lab Laboratory Tests Test 02/18/17 09:00 02/18/17 19:31 02/19/17 00:40 02/19/17 05:00 Urine Collection Type Unknown Urine Color Danelle Urine Clarity Cloudy Urine pH 5.0 Urine Specific [place] 1.020 Urine Protein 30mg/dL (NEG-TRACE) Urine Glucose (UA) Negativemg/dL (NEG) Urine Ketones (Stick) Negativemg/dL (NEG) Urine Blood Large (NEG) Urine Nitrite Negative (NEG) Urine Bilirubin Small (NEG) Urine Urobilinogen Dipstick 1.0mg/dL (0.2 mg/dL) Urine Leukocyte Esterase Small (NEG) Urine RBC 3-5/HPF (0-2) Urine WBC 1-4/HPF (0-4) Urine Squamous Epithelial Cells None/LPF Urine Bacteria Few/HPF (0-FEW) Glucose (Fingerstick) 231mg/dL (70-99) 253mg/dL (70-99) White Blood Count 8.4x10^3/uL (4.0-11.0) Red Blood Count 4.48x10^6/uL (3.50-5.40) Hemoglobin 10.6g/dL (12.0-15.5) Hematocrit 33.8% (36.0-47.0) Mean Corpuscular Volume 75fL (79-100) Mean Corpuscular Hemoglobin 24pg (25-35) Mean Corpuscular Hemoglobin Concent 31g/dL (31-37) Red Cell Distribution Width 21.5% (11.5-14.5) Platelet Count 127x10^3/uL (140-400) Neutrophils (%) (Auto) 90% (31-73) Lymphocytes (%) (Auto) 4% (24-48) Monocytes (%) (Auto) 5% (0-9) Eosinophils (%) (Auto) 0% (0-3) Basophils (%) (Auto) 0% (0-3) Neutrophils # (Auto) 7.6x10^3uL (1.8-7.7) Lymphocytes # (Auto) 0.3x10^3/uL (1.0-4.8) Monocytes # (Auto) 0.5x10^3/uL (0.0-1.1) Eosinophils # (Auto) 0.0x10^3/uL (0.0-0.7) Basophils # (Auto) 0.0x10^3/uL (0.0-0.2) Prothrombin Time 20.3SEC (11.7-14.0) Prothromb Time International Ratio 1.9 (0.8-1.1) Sodium Level 141mmol/L (136-145) Potassium Level 2.8mmol/L (3.5-5.1) Chloride Level 108mmol/L (98-107) Carbon Dioxide Level 20mmol/L (21-32) Anion Gap 13 (6-14) Blood Urea Nitrogen 32mg/dL (7-20) Creatinine 1.2mg/dL (0.6-1.0) Estimated GFR (Cockcroft-Gault) 45.5 Glucose Level 217mg/dL (70-99) Lactic Acid Level 1.2mmol/L (0.4-2.0) Calcium Level 5.8mg/dL (8.5-10.1) Phosphorus Level 2.6mg/dL (2.6-4.7) Magnesium Level 1.4mg/dL (1.8-2.4) Albumin 1.7g/dL (3.4-5.0) Test 02/19/17 05:20 02/19/17 06:30 Glucose (Fingerstick) 271mg/dL (70-99) White Blood Count 8.2x10^3/uL (4.0-11.0) Red Blood Count 4.40x10^6/uL (3.50-5.40) Hemoglobin 10.4g/dL (12.0-15.5) Hematocrit 33.3% (36.0-47.0) Mean Corpuscular Volume 76fL (79-100) Mean Corpuscular Hemoglobin 24pg (25-35) Mean Corpuscular Hemoglobin Concent 31g/dL (31-37) Red Cell Distribution Width 22.3% (11.5-14.5) Platelet Count 137x10^3/uL (140-400) Neutrophils (%) (Auto) 91% (31-73) Lymphocytes (%) (Auto) 5% (24-48) Monocytes (%) (Auto) 5% (0-9) Eosinophils (%) (Auto) 0% (0-3) Basophils (%) (Auto) 0% (0-3) Neutrophils # (Auto) 7.4x10^3uL (1.8-7.7) Lymphocytes # (Auto) 0.4x10^3/uL (1.0-4.8) Monocytes # (Auto) 0.4x10^3/uL (0.0-1.1) Eosinophils # (Auto) 0.0x10^3/uL (0.0-0.7) Basophils # (Auto) 0.0x10^3/uL (0.0-0.2) DELLA AMEZQUITA MD Feb 19, 2017 07:47
--- NOTE | 2017-02-19 07:49 | PDOC ---
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 SKIN: No rash IV: Art line RUE/RIJ HD cath/Left subclavian Labs Lab Laboratory Tests Test 02/18/17 09:00 02/18/17 19:31 02/19/17 00:40 02/19/17 05:00 Urine Collection Type Unknown Urine Color Danelle Urine Clarity Cloudy Urine pH 5.0 Urine Specific [place] 1.020 Urine Protein 30mg/dL (NEG-TRACE) Urine Glucose (UA) Negativemg/dL (NEG) Urine Ketones (Stick) Negativemg/dL (NEG) Urine Blood Large (NEG) Urine Nitrite Negative (NEG) Urine Bilirubin Small (NEG) Urine Urobilinogen Dipstick 1.0mg/dL (0.2 mg/dL) Urine Leukocyte Esterase Small (NEG) Urine RBC 3-5/HPF (0-2) Urine WBC 1-4/HPF (0-4) Urine Squamous Epithelial Cells None/LPF Urine Bacteria Few/HPF (0-FEW) Glucose (Fingerstick) 231mg/dL (70-99) 253mg/dL (70-99) White Blood Count 8.4x10^3/uL (4.0-11.0) Red Blood Count 4.48x10^6/uL (3.50-5.40) Hemoglobin 10.6g/dL (12.0-15.5) Hematocrit 33.8% (36.0-47.0) Mean Corpuscular Volume 75fL (79-100) Mean Corpuscular Hemoglobin 24pg (25-35) Mean Corpuscular Hemoglobin Concent 31g/dL (31-37) Red Cell Distribution Width 21.5% (11.5-14.5) Platelet Count 127x10^3/uL (140-400) Neutrophils (%) (Auto) 90% (31-73) Lymphocytes (%) (Auto) 4% (24-48) Monocytes (%) (Auto) 5% (0-9) Eosinophils (%) (Auto) 0% (0-3) Basophils (%) (Auto) 0% (0-3) Neutrophils # (Auto) 7.6x10^3uL (1.8-7.7) Lymphocytes # (Auto) 0.3x10^3/uL (1.0-4.8) Monocytes # (Auto) 0.5x10^3/uL (0.0-1.1) Eosinophils # (Auto) 0.0x10^3/uL (0.0-0.7) Basophils # (Auto) 0.0x10^3/uL (0.0-0.2) Prothrombin Time 20.3SEC (11.7-14.0) Prothromb Time International Ratio 1.9 (0.8-1.1) Sodium Level 141mmol/L (136-145) Potassium Level 2.8mmol/L (3.5-5.1) Chloride Level 108mmol/L (98-107) Carbon Dioxide Level 20mmol/L (21-32) Anion Gap 13 (6-14) Blood Urea Nitrogen 32mg/dL (7-20) Creatinine 1.2mg/dL (0.6-1.0) Estimated GFR (Cockcroft-Gault) 45.5 Glucose Level 217mg/dL (70-99) Lactic Acid Level 1.2mmol/L (0.4-2.0) Calcium Level 5.8mg/dL (8.5-10.1) Phosphorus Level 2.6mg/dL (2.6-4.7) Magnesium Level 1.4mg/dL (1.8-2.4) Albumin 1.7g/dL (3.4-5.0) Test 02/19/17 05:20 02/19/17 06:30 Glucose (Fingerstick) 271mg/dL (70-99) White Blood Count 8.2x10^3/uL (4.0-11.0) Red Blood Count 4.40x10^6/uL (3.50-5.40) Hemoglobin 10.4g/dL (12.0-15.5) Hematocrit 33.3% (36.0-47.0) Mean Corpuscular Volume 76fL (79-100) Mean Corpuscular Hemoglobin 24pg (25-35) Mean Corpuscular Hemoglobin Concent 31g/dL (31-37) Red Cell Distribution Width 22.3% (11.5-14.5) Platelet Count 137x10^3/uL (140-400) Neutrophils (%) (Auto) 91% (31-73) Lymphocytes (%) (Auto) 5% (24-48) Monocytes (%) (Auto) 5% (0-9) Eosinophils (%) (Auto) 0% (0-3) Basophils (%) (Auto) 0% (0-3) Neutrophils # (Auto) 7.4x10^3uL (1.8-7.7) Lymphocytes # (Auto) 0.4x10^3/uL (1.0-4.8) Monocytes # (Auto) 0.4x10^3/uL (0.0-1.1) Eosinophils # (Auto) 0.0x10^3/uL (0.0-0.7) Basophils # (Auto) 0.0x10^3/uL (0.0-0.2) Sodium Level 138mmol/L (136-145) Potassium Level 3.9mmol/L (3.5-5.1) Chloride Level 97mmol/L (98-107) Carbon Dioxide Level 26mmol/L (21-32) Anion Gap 15 (6-14) Blood Urea Nitrogen 42mg/dL (7-20) Creatinine 1.7mg/dL (0.6-1.0) Estimated GFR (Cockcroft-Gault) 30.5 Glucose Level 274mg/dL (70-99) Calcium Level 7.6mg/dL (8.5-10.1) Magnesium Level 2.1mg/dL (1.8-2.4) Objective Assessment ? sepsis vs SIRS. Did receive solumedrol in [facility]. On Solucortef. Down to 1 of Levophed was on 6 yesterday NSTEMI ? Aspiration - intubated- h/o Pulm fibrosis Lactic acidosis - improved but now trending BRADLEY - dehydration. Getting HD Transaminitis H/o elevated CORA DM and gastroparesis Plan Plan of Care Cont Zosyn F/u labs and cults May need further eval for ? autoimmune given elevated CORA 1:640 with homogenous patten in Nov 2014 but now on hydrocortisone Critically ill NICHOLAS SIDDIQUI MD Feb 19, 2017 07:49
[2017-02-19] MEDS ORDERED: CALCIUM CHLORIDE 2,000 MG in IV NORMAL SALINE 100ML 100 ML IV ONE (08:00)
[2017-02-19 08:25] LABS: FIO2 ABG 40; PCO2 ABG 32 mmHg (35-46); PH ABG 7.53 (7.35-7.45)
[2017-02-19] MEDS: PANTOPRAZOLE IV PUSH 40 MG VIAL. IVP SCH (09:25)
[2017-02-19] MEDS: LEVOTHYROXINE SODIUM 37.5 MCG in IV NORMAL SALINE 50ML 5 ML IVP SCH (09:25)
[2017-02-19] MEDS: CHLORHEXIDINE 0.12% 15 ML MOUTHWASH. SWSP SCH ×2 (09:25→21:29)
[2017-02-19] MEDS: ALBUMIN HUMAN 25% 100 ML IV SCH ×3 (09:33→21:30)
[2017-02-19] MEDS ORDERED: VANCOMYCIN RANDOM LEVEL. MC ONE (10:30)
[2017-02-19] MEDS: CITALOPRAM 20 MG TABLET. NG SCH (12:00)
[2017-02-19] MEDS: buPROPion 75 MG TABLET. NG SCH ×2 (12:00→21:29)
--- NOTE | 2017-02-19 12:18 | PDOC ---
CARDIO Progress Notes Date and Time Date of Service 02/19/17 Time of Evaluation 1210 Subjective Subjective: Other (intubated. sedation off) Vitals Vitals Vital Signs Date Time Temp Pulse Resp B/P Pulse Ox O2 Delivery O2 Flow Rate FiO2 02/19/17 11:59 98 Ventilator 02/19/17 11:00 96 18 119/82 02/19/17 08:00 99.1 99.1 Weight Weight [ ] Input and Output Intake and Output Intake and Output 02/19/17 07:00 Intake Total 2695 ml Output Total 705 ml Balance 1990 ml Intake IV Total 610 ml Tube Feeding 1885 ml Blood Product IV Normal Saline Flush 200 ml Output Urine Total 675 ml Gastric Drainage Total 30 ml # Bowel Movements 1 Laboratory Labs Laboratory Tests Test 02/18/17 19:31 02/19/17 00:40 02/19/17 05:00 02/19/17 05:20 Glucose (Fingerstick) 231mg/dL (70-99) 253mg/dL (70-99) 271mg/dL (70-99) White Blood Count 8.4x10^3/uL (4.0-11.0) Red Blood Count 4.48x10^6/uL (3.50-5.40) Hemoglobin 10.6g/dL (12.0-15.5) Hematocrit 33.8% (36.0-47.0) Mean Corpuscular Volume 75fL (79-100) Mean Corpuscular Hemoglobin 24pg (25-35) Mean Corpuscular Hemoglobin Concent 31g/dL (31-37) Red Cell Distribution Width 21.5% (11.5-14.5) Platelet Count 127x10^3/uL (140-400) Neutrophils (%) (Auto) 90% (31-73) Lymphocytes (%) (Auto) 4% (24-48) Monocytes (%) (Auto) 5% (0-9) Eosinophils (%) (Auto) 0% (0-3) Basophils (%) (Auto) 0% (0-3) Neutrophils # (Auto) 7.6x10^3uL (1.8-7.7) Lymphocytes # (Auto) 0.3x10^3/uL (1.0-4.8) Monocytes # (Auto) 0.5x10^3/uL (0.0-1.1) Eosinophils # (Auto) 0.0x10^3/uL (0.0-0.7) Basophils # (Auto) 0.0x10^3/uL (0.0-0.2) Prothrombin Time 20.3SEC (11.7-14.0) Prothromb Time International Ratio 1.9 (0.8-1.1) Sodium Level 141mmol/L (136-145) Potassium Level 2.8mmol/L (3.5-5.1) Chloride Level 108mmol/L (98-107) Carbon Dioxide Level 20mmol/L (21-32) Anion Gap 13 (6-14) Blood Urea Nitrogen 32mg/dL (7-20) Creatinine 1.2mg/dL (0.6-1.0) Estimated GFR (Cockcroft-Gault) 45.5 Glucose Level 217mg/dL (70-99) Lactic Acid Level 1.2mmol/L (0.4-2.0) Calcium Level 5.8mg/dL (8.5-10.1) Phosphorus Level 2.6mg/dL (2.6-4.7) Magnesium Level 1.4mg/dL (1.8-2.4) Albumin 1.7g/dL (3.4-5.0) Test 02/19/17 06:30 02/19/17 07:28 White Blood Count 8.2x10^3/uL (4.0-11.0) Red Blood Count 4.40x10^6/uL (3.50-5.40) Hemoglobin 10.4g/dL (12.0-15.5) Hematocrit 33.3% (36.0-47.0) Mean Corpuscular Volume 76fL (79-100) Mean Corpuscular Hemoglobin 24pg (25-35) Mean Corpuscular Hemoglobin Concent 31g/dL (31-37) Red Cell Distribution Width 22.3% (11.5-14.5) Platelet Count 137x10^3/uL (140-400) Neutrophils (%) (Auto) 91% (31-73) Lymphocytes (%) (Auto) 5% (24-48) Monocytes (%) (Auto) 5% (0-9) Eosinophils (%) (Auto) 0% (0-3) Basophils (%) (Auto) 0% (0-3) Neutrophils # (Auto) 7.4x10^3uL (1.8-7.7) Lymphocytes # (Auto) 0.4x10^3/uL (1.0-4.8) Monocytes # (Auto) 0.4x10^3/uL (0.0-1.1) Eosinophils # (Auto) 0.0x10^3/uL (0.0-0.7) Basophils # (Auto) 0.0x10^3/uL (0.0-0.2) Sodium Level 138mmol/L (136-145) Potassium Level 3.9mmol/L (3.5-5.1) Chloride Level 97mmol/L (98-107) Carbon Dioxide Level 26mmol/L (21-32) Anion Gap 15 (6-14) Blood Urea Nitrogen 42mg/dL (7-20) Creatinine 1.7mg/dL (0.6-1.0) Estimated GFR (Cockcroft-Gault) 30.5 Glucose Level 274mg/dL (70-99) Calcium Level 7.6mg/dL (8.5-10.1) Magnesium Level 2.1mg/dL (1.8-2.4) Random Vancomycin Level 8.3mcg/mL O2 Saturation 95% (92-99) Arterial Blood pH 7.53 (7.35-7.45) Arterial Blood pCO2 at Patient Temp 32mmHg (35-46) Arterial Blood pO2 at Patient Temp 74mmHg (65-108) Arterial Blood HCO3 26mmol/L (21-28) Arterial Blood Base Excess 3mmol/L (-3-3) FiO2 40 Physical Exam HEENT: Neck Supple W Full Motion Chest: Symmetric LUNGS: Other (mechanical ventilation) Heart: S1S2, RRR, other (distant heart tones ) Abdomen: Soft N/T Extremities: Other (trace bilateral LE edema, diminished pedal pulses bilaterally ) Neurology: other (off sedation; not awake ) Assessment Assessment [facility] records obtained: Cath 04/26/16 revealed 3-vessel disease. Subsequently, underwent CABG 04/30/16 with MCCLAIN to the LAD, FIGUEROA T graft to the circumflex obtuse marginal, and left radial artery to the PDA. At the time of LHC, LVEF 55-60%. 1. NSTEMI trop peak 31.1 repeat 2D echo with preserved LV function with an EF of 55-60% INR 1.9. Will start low-dose heparin gtt. PLT 137- will monitor closely continue medical management consider for cardiac cath when acute issues resolved. 2. CAD s/p CABG at [facility] 04/2016 as noted above hold BB and ARB with hypotension/BRADLEY. No statin with transaminitis. secondary prevention as able. 3. Acute on chronic respiratory failure with metabolic acidosis s/p intubation per pulm 4. Leukocytosis broad-spectrum antibiotic therapy initiated 4. Lactic acidosis with sepsis and hypovolemic shock improved on low-dose Levo pressor support as warranted 5. Transaminitis secondary to shock 6. BRADLEY/ATN with CKD with electrolyte abnormalities HD began emergently 02/17 monitor lytes- replace as warranted 7. Diabetes per PCP 8. Hypothyroidism check TSH AVELINO OSBORNE APRN Feb 19, 2017 12:18
--- NOTE | 2017-02-19 13:15 | PDOC ---
PULMONARY PROGRESS NOTES Subjective PT OFF SEDATION ON AC MODE Vitals Vital Signs Date Time Temp Pulse Resp B/P Pulse Ox O2 Delivery O2 Flow Rate FiO2 02/19/17 13:00 110 18 135/69 100 Ventilator 02/19/17 12:00 99.9 99.9 Lungs: Clear, Other Cardiovascular: S1, S2 Abdomen: Soft Extremities: No Edema Skin: Warm Labs Laboratory Tests Test 02/17/17 15:50 02/17/17 16:45 02/18/17 05:00 02/18/17 07:37 Lactic Acid Level 2.6mmol/L (0.4-2.0) 2.9mmol/L (0.4-2.0) Troponin I Quantitative 26.496ng/mL (0.000-0.055) O2 Saturation 97% (92-99) 97% (92-99) Arterial Blood pH 7.48 (7.35-7.45) 7.41 (7.35-7.45) Arterial Blood pCO2 at Patient Temp 32mmHg (35-46) 25mmHg (35-46) Arterial Blood pO2 at Patient Temp 105mmHg (65-108) 101mmHg (65-108) Arterial Blood HCO3 23mmol/L (21-28) 16mmol/L (21-28) Arterial Blood Base Excess 0mmol/L (-3-3) -8mmol/L (-3-3) FiO2 40 40 White Blood Count 12.4x10^3/uL (4.0-11.0) Red Blood Count 4.70x10^6/uL (3.50-5.40) Hemoglobin 10.9g/dL (12.0-15.5) Hematocrit 35.8% (36.0-47.0) Mean Corpuscular Volume 76fL (79-100) Mean Corpuscular Hemoglobin 23pg (25-35) Mean Corpuscular Hemoglobin Concent 30g/dL (31-37) Red Cell Distribution Width 21.5% (11.5-14.5) Platelet Count 188x10^3/uL (140-400) Neutrophils (%) (Auto) 92% (31-73) Lymphocytes (%) (Auto) 3% (24-48) Monocytes (%) (Auto) 5% (0-9) Eosinophils (%) (Auto) 0% (0-3) Basophils (%) (Auto) 0% (0-3) Neutrophils # (Auto) 11.4x10^3uL (1.8-7.7) Lymphocytes # (Auto) 0.3x10^3/uL (1.0-4.8) Monocytes # (Auto) 0.6x10^3/uL (0.0-1.1) Eosinophils # (Auto) 0.0x10^3/uL (0.0-0.7) Basophils # (Auto) 0.0x10^3/uL (0.0-0.2) Segmented Neutrophils % 89% (35-66) Band Neutrophils % 5% (0-9) Lymphocytes % 2% (24-48) Monocytes % 3% (0-10) Eosinophils % 1% (0-5) Platelet Estimate Adequate (ADEQUATE) Prothrombin Time 21.3SEC (11.7-14.0) Prothromb Time International Ratio 2.0 (0.8-1.1) Sodium Level 137mmol/L (136-145) Potassium Level 4.3mmol/L (3.5-5.1) Chloride Level 96mmol/L (98-107) Carbon Dioxide Level 21mmol/L (21-32) Anion Gap 20 (6-14) Blood Urea Nitrogen 47mg/dL (7-20) Creatinine 2.4mg/dL (0.6-1.0) Estimated GFR (Cockcroft-Gault) 20.5 BUN/Creatinine Ratio 20 (6-20) Glucose Level 222mg/dL (70-99) Uric Acid 8.4mg/dL (2.6-6.0) Calcium Level 7.5mg/dL (8.5-10.1) Magnesium Level 1.6mg/dL (1.8-2.4) Total Bilirubin 1.8mg/dL (0.2-1.0) Aspartate Amino Transf (AST/SGOT) 591U/L (15-37) Alanine Aminotransferase (ALT/SGPT) 192U/L (14-59) Alkaline Phosphatase 111U/L (46-116) Creatine Kinase 2504U/L (26-192) Total Protein 5.9g/dL (6.4-8.2) Albumin 3.0g/dL (3.4-5.0) Albumin/Globulin Ratio 1.0 (1.0-1.7) Test 02/18/17 09:00 02/18/17 19:31 02/19/17 00:40 02/19/17 05:00 Urine Collection Type Unknown Urine Color Danelle Urine Clarity Cloudy Urine pH 5.0 Urine Specific [place] 1.020 Urine Protein 30mg/dL (NEG-TRACE) Urine Glucose (UA) Negativemg/dL (NEG) Urine Ketones (Stick) Negativemg/dL (NEG) Urine Blood Large (NEG) Urine Nitrite Negative (NEG) Urine Bilirubin Small (NEG) Urine Urobilinogen Dipstick 1.0mg/dL (0.2 mg/dL) Urine Leukocyte Esterase Small (NEG) Urine RBC 3-5/HPF (0-2) Urine WBC 1-4/HPF (0-4) Urine Squamous Epithelial Cells None/LPF Urine Bacteria Few/HPF (0-FEW) Glucose (Fingerstick) 231mg/dL (70-99) 253mg/dL (70-99) White Blood Count 8.4x10^3/uL (4.0-11.0) Red Blood Count 4.48x10^6/uL (3.50-5.40) Hemoglobin 10.6g/dL (12.0-15.5) Hematocrit 33.8% (36.0-47.0) Mean Corpuscular Volume 75fL (79-100) Mean Corpuscular Hemoglobin 24pg (25-35) Mean Corpuscular Hemoglobin Concent 31g/dL (31-37) Red Cell Distribution Width 21.5% (11.5-14.5) Platelet Count 127x10^3/uL (140-400) Neutrophils (%) (Auto) 90% (31-73) Lymphocytes (%) (Auto) 4% (24-48) Monocytes (%) (Auto) 5% (0-9) Eosinophils (%) (Auto) 0% (0-3) Basophils (%) (Auto) 0% (0-3) Neutrophils # (Auto) 7.6x10^3uL (1.8-7.7) Lymphocytes # (Auto) 0.3x10^3/uL (1.0-4.8) Monocytes # (Auto) 0.5x10^3/uL (0.0-1.1) Eosinophils # (Auto) 0.0x10^3/uL (0.0-0.7) Basophils # (Auto) 0.0x10^3/uL (0.0-0.2) Prothrombin Time 20.3SEC (11.7-14.0) Prothromb Time International Ratio 1.9 (0.8-1.1) Sodium Level 141mmol/L (136-145) Potassium Level 2.8mmol/L (3.5-5.1) Chloride Level 108mmol/L (98-107) Carbon Dioxide Level 20mmol/L (21-32) Anion Gap 13 (6-14) Blood Urea Nitrogen 32mg/dL (7-20) Creatinine 1.2mg/dL (0.6-1.0) Estimated GFR (Cockcroft-Gault) 45.5 Glucose Level 217mg/dL (70-99) Lactic Acid Level 1.2mmol/L (0.4-2.0) Calcium Level 5.8mg/dL (8.5-10.1) Phosphorus Level 2.6mg/dL (2.6-4.7) Magnesium Level 1.4mg/dL (1.8-2.4) Albumin 1.7g/dL (3.4-5.0) Test 02/19/17 05:20 02/19/17 06:30 02/19/17 07:28 02/19/17 12:50 Glucose (Fingerstick) 271mg/dL (70-99) 316mg/dL (70-99) White Blood Count 8.2x10^3/uL (4.0-11.0) Red Blood Count 4.40x10^6/uL (3.50-5.40) Hemoglobin 10.4g/dL (12.0-15.5) Hematocrit 33.3% (36.0-47.0) Mean Corpuscular Volume 76fL (79-100) Mean Corpuscular Hemoglobin 24pg (25-35) Mean Corpuscular Hemoglobin Concent 31g/dL (31-37) Red Cell Distribution Width 22.3% (11.5-14.5) Platelet Count 137x10^3/uL (140-400) Neutrophils (%) (Auto) 91% (31-73) Lymphocytes (%) (Auto) 5% (24-48) Monocytes (%) (Auto) 5% (0-9) Eosinophils (%) (Auto) 0% (0-3) Basophils (%) (Auto) 0% (0-3) Neutrophils # (Auto) 7.4x10^3uL (1.8-7.7) Lymphocytes # (Auto) 0.4x10^3/uL (1.0-4.8) Monocytes # (Auto) 0.4x10^3/uL (0.0-1.1) Eosinophils # (Auto) 0.0x10^3/uL (0.0-0.7) Basophils # (Auto) 0.0x10^3/uL (0.0-0.2) Sodium Level 138mmol/L (136-145) Potassium Level 3.9mmol/L (3.5-5.1) Chloride Level 97mmol/L (98-107) Carbon Dioxide Level 26mmol/L (21-32) Anion Gap 15 (6-14) Blood Urea Nitrogen 42mg/dL (7-20) Creatinine 1.7mg/dL (0.6-1.0) Estimated GFR (Cockcroft-Gault) 30.5 Glucose Level 274mg/dL (70-99) Calcium Level 7.6mg/dL (8.5-10.1) Magnesium Level 2.1mg/dL (1.8-2.4) Random Vancomycin Level 8.3mcg/mL O2 Saturation 95% (92-99) Arterial Blood pH 7.53 (7.35-7.45) Arterial Blood pCO2 at Patient Temp 32mmHg (35-46) Arterial Blood pO2 at Patient Temp 74mmHg (65-108) Arterial Blood HCO3 26mmol/L (21-28) Arterial Blood Base Excess 3mmol/L (-3-3) FiO2 40 Laboratory Tests Test 02/18/17 19:31 02/19/17 00:40 02/19/17 05:00 02/19/17 05:20 Glucose (Fingerstick) 231mg/dL (70-99) 253mg/dL (70-99) 271mg/dL (70-99) White Blood Count 8.4x10^3/uL (4.0-11.0) Red Blood Count 4.48x10^6/uL (3.50-5.40) Hemoglobin 10.6g/dL (12.0-15.5) Hematocrit 33.8% (36.0-47.0) Mean Corpuscular Volume 75fL (79-100) Mean Corpuscular Hemoglobin 24pg (25-35) Mean Corpuscular Hemoglobin Concent 31g/dL (31-37) Red Cell Distribution Width 21.5% (11.5-14.5) Platelet Count 127x10^3/uL (140-400) Neutrophils (%) (Auto) 90% (31-73) Lymphocytes (%) (Auto) 4% (24-48) Monocytes (%) (Auto) 5% (0-9) Eosinophils (%) (Auto) 0% (0-3) Basophils (%) (Auto) 0% (0-3) Neutrophils # (Auto) 7.6x10^3uL (1.8-7.7) Lymphocytes # (Auto) 0.3x10^3/uL (1.0-4.8) Monocytes # (Auto) 0.5x10^3/uL (0.0-1.1) Eosinophils # (Auto) 0.0x10^3/uL (0.0-0.7) Basophils # (Auto) 0.0x10^3/uL (0.0-0.2) Prothrombin Time 20.3SEC (11.7-14.0) Prothromb Time International Ratio 1.9 (0.8-1.1) Sodium Level 141mmol/L (136-145) Potassium Level 2.8mmol/L (3.5-5.1) Chloride Level 108mmol/L (98-107) Carbon Dioxide Level 20mmol/L (21-32) Anion Gap 13 (6-14) Blood Urea Nitrogen 32mg/dL (7-20) Creatinine 1.2mg/dL (0.6-1.0) Estimated GFR (Cockcroft-Gault) 45.5 Glucose Level 217mg/dL (70-99) Lactic Acid Level 1.2mmol/L (0.4-2.0) Calcium Level 5.8mg/dL (8.5-10.1) Phosphorus Level 2.6mg/dL (2.6-4.7) Magnesium Level 1.4mg/dL (1.8-2.4) Albumin 1.7g/dL (3.4-5.0) Test 02/19/17 06:30 02/19/17 07:28 02/19/17 12:50 White Blood Count 8.2x10^3/uL (4.0-11.0) Red Blood Count 4.40x10^6/uL (3.50-5.40) Hemoglobin 10.4g/dL (12.0-15.5) Hematocrit 33.3% (36.0-47.0) Mean Corpuscular Volume 76fL (79-100) Mean Corpuscular Hemoglobin 24pg (25-35) Mean Corpuscular Hemoglobin Concent 31g/dL (31-37) Red Cell Distribution Width 22.3% (11.5-14.5) Platelet Count 137x10^3/uL (140-400) Neutrophils (%) (Auto) 91% (31-73) Lymphocytes (%) (Auto) 5% (24-48) Monocytes (%) (Auto) 5% (0-9) Eosinophils (%) (Auto) 0% (0-3) Basophils (%) (Auto) 0% (0-3) Neutrophils # (Auto) 7.4x10^3uL (1.8-7.7) Lymphocytes # (Auto) 0.4x10^3/uL (1.0-4.8) Monocytes # (Auto) 0.4x10^3/uL (0.0-1.1) Eosinophils # (Auto) 0.0x10^3/uL (0.0-0.7) Basophils # (Auto) 0.0x10^3/uL (0.0-0.2) Sodium Level 138mmol/L (136-145) Potassium Level 3.9mmol/L (3.5-5.1) Chloride Level 97mmol/L (98-107) Carbon Dioxide Level 26mmol/L (21-32) Anion Gap 15 (6-14) Blood Urea Nitrogen 42mg/dL (7-20) Creatinine 1.7mg/dL (0.6-1.0) Estimated GFR (Cockcroft-Gault) 30.5 Glucose Level 274mg/dL (70-99) Calcium Level 7.6mg/dL (8.5-10.1) Magnesium Level 2.1mg/dL (1.8-2.4) Random Vancomycin Level 8.3mcg/mL O2 Saturation 95% (92-99) Arterial Blood pH 7.53 (7.35-7.45) Arterial Blood pCO2 at Patient Temp 32mmHg (35-46) Arterial Blood pO2 at Patient Temp 74mmHg (65-108) Arterial Blood HCO3 26mmol/L (21-28) Arterial Blood Base Excess 3mmol/L (-3-3) FiO2 40 Glucose (Fingerstick) 316mg/dL (70-99) Medications Active Scripts Medications Dose Route/Sig Days Date Category Requip (Ropinirole Hcl) 1 Mg Tablet 4 Mg PO DAILY 02/14/17 Reported Aspir 81 (Aspirin) 81 Mg Tablet.dr 81 Mg PO DAILY 02/14/17 Reported Wellbutrin Sr (Bupropion Hcl) 150 Mg Tablet.er 150 Mg PO DAILY 02/14/17 Reported Toprol Xl (Metoprolol Succinate) 25 Mg Tab.er.24h 12 Mg PO DAILY 02/14/17 Reported Lasix (Furosemide) 40 Mg Tablet 40 Mg PO DAILY 02/14/17 Reported Pravastatin Sodium 40 Mg Tablet 40 Mg PO DAILY 02/14/17 Reported Pantoprazole Sodium 40 Mg Tablet.dr 40 Mg PO DAILY 02/14/17 Reported [place]ver 7.5-325 Tablet (Acetaminophen/Hydrocodone Bitart) 1 Each Tablet 1 Tab PO PRN Q6HRS PRN 12/06/14 Rx Doxycycline Hyclate 100 Mg Capsule 1 Cap PO BID 12/06/14 Reported Hydrocodone-Apap 5-325 (Hydrocodone Bit/Acetaminophen) 1 Each Tablet 1-2 Tab PO Q4-6HRS PRN 12/06/14 Reported Levothyroxine Sodium 75 Mcg Tablet 1 Tab PO DAILY 12/05/14 Reported Citalopram Hbr (Citalopram Hydrobromide) 20 Mg Tablet 20 Mg PO DAILY 12/05/14 Reported Losartan Potassium 50 Mg Tablet 50 Mg PO DAILY 12/05/14 Reported Metformin Hcl 500 Mg Tablet 1 Tab PO TIDWMEALS 12/05/14 Reported Comments NO CXR TODAY Impression . 1. Acute respiratory failure secondary to SEPTIC SHOCK 2. SEPTIC SHOCK 3. Acute renal failure ON HD 4. 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 Not been on chronic steroids. 5. Marked anion gap metabolic acidosis secondary to septic shock./renal failure 6. non-ST myocardial infarction. SPOKE WITH CARD 7. Nutrition will start tube feeding 8. Abnormal cxr sec to pulmonary edema/ Pneumonia Plan . OVERALL IMPROVING WILL PROCEED [facility] TRIAL ONCE AWAKENS SPOKE WITH DR AMEZQUITA 1. Decrease minute ventilation 2. Broad spectrum antibiotics, per ID 3. pressors titrate to off 4. Hemodialysis per nephro 5. Chest x-ray 6. Follow all culture results. 7. hold sedation 8. The patient's INR is already high and we will hold DVT prophylaxis. 9. Stress ulcer prophylaxis. 10. Hydrocortisone 100 mg IV q. 8 hours. 11. Echo report notede CCT 30 [id number] VITO FARRIS MD Feb 19, 2017 13:15
[2017-02-19] MEDS: HEPARIN 25,000UTS/500ML PREMIX 500 ML IV PRN (13:22)
--- NOTE | 2017-02-19 13:47 | PDOC ---
Objective: Objective: Per RN - tube feeds held w/ increased residuals, possible extubation today. Vital Signs: Vital Signs Date Time Temp Pulse Resp B/P Pulse Ox O2 Delivery O2 Flow Rate FiO2 02/19/17 13:00 110 18 135/69 100 Ventilator 02/19/17 12:00 99.9 99.9 Labs: Laboratory Tests Test 02/18/17 19:31 02/19/17 00:40 02/19/17 05:20 02/19/17 12:50 Glucose (Fingerstick) 231mg/dL (70-99) 253mg/dL (70-99) 271mg/dL (70-99) 316mg/dL (70-99) PE: GEN: intubated LUNGS: vent HEART: tachycardic ABD: BS+, soft, non-distended NEURO/PSYCH: eyes closed, moving head back and forth slowly A/P: NSTEMI, resp failure, BRADLEY/CKD Abnormal LFTs - improved Chronic n/v/retching, suspected gastroparesis, DM -EGD and colonoscopy 02/14/17: chronic gastritis, hiatal hernia, sigmoid diverticulum, internal hemorrhoids -on IV PPI -OG feeds held w/ high residual despite slow rate -- Check KUB. JF CENTENO Feb 19, 2017 13:47
--- NOTE | 2017-02-19 13:53 | PDOC ---
PROGRESS NOTES Chief Complaint Chief Complaint cc: Respiratory failure -Acute renal failure -NSTEMI -CAD -Septic shock -CABG -HLD -HTN -Tonsillectomy -Pulmonary fibrosis -FREDY -Obesity -Constipation -GERD -Breast excision -Tubal ligation -DM -Hypothyroidism -Anxiety -Smoking -Hepatitis A History of Present Illness History of Present Illness Ms. Betancourt was in bed and on the ventilator, and her was present when we visited. The reports she is a little more reactive, but she still is not aware of her surroundings. Her ventilation settings were at A/C / 14 f / 500 VT / 99% FiO2. She responded minimally to sound, but she was not able to follow commands. Her pupils were reactive to light. She was moving her extremities without restraint. She had norepinephrine, propofol, and PPD on the IV racks. Mittens were present on her left hand, and she had a brace on her right. Her condition is guarded. Vitals Vitals Vital Signs Date Time Temp Pulse Resp B/P Pulse Ox O2 Delivery O2 Flow Rate FiO2 02/19/17 13:00 110 18 135/69 100 Ventilator 02/19/17 12:00 99.9 99.9 Physical Exam General: No acute distress, Other (This patient was on a ventilator.) Heart: Regular rate (Tachycardia), Normal S1, Normal S2 Lungs: Clear, Other (No chest retractions were present.) Abdomen: Soft, No tenderness Extremities: No clubbing, No edema Skin: No rashes, No breakdown Labs LABS Laboratory Tests Test 02/18/17 19:31 02/19/17 00:40 02/19/17 05:00 02/19/17 05:20 Glucose (Fingerstick) 231mg/dL (70-99) 253mg/dL (70-99) 271mg/dL (70-99) White Blood Count 8.4x10^3/uL (4.0-11.0) Red Blood Count 4.48x10^6/uL (3.50-5.40) Hemoglobin 10.6g/dL (12.0-15.5) Hematocrit 33.8% (36.0-47.0) Mean Corpuscular Volume 75fL (79-100) Mean Corpuscular Hemoglobin 24pg (25-35) Mean Corpuscular Hemoglobin Concent 31g/dL (31-37) Red Cell Distribution Width 21.5% (11.5-14.5) Platelet Count 127x10^3/uL (140-400) Neutrophils (%) (Auto) 90% (31-73) Lymphocytes (%) (Auto) 4% (24-48) Monocytes (%) (Auto) 5% (0-9) Eosinophils (%) (Auto) 0% (0-3) Basophils (%) (Auto) 0% (0-3) Neutrophils # (Auto) 7.6x10^3uL (1.8-7.7) Lymphocytes # (Auto) 0.3x10^3/uL (1.0-4.8) Monocytes # (Auto) 0.5x10^3/uL (0.0-1.1) Eosinophils # (Auto) 0.0x10^3/uL (0.0-0.7) Basophils # (Auto) 0.0x10^3/uL (0.0-0.2) Prothrombin Time 20.3SEC (11.7-14.0) Prothromb Time International Ratio 1.9 (0.8-1.1) Sodium Level 141mmol/L (136-145) Potassium Level 2.8mmol/L (3.5-5.1) Chloride Level 108mmol/L (98-107) Carbon Dioxide Level 20mmol/L (21-32) Anion Gap 13 (6-14) Blood Urea Nitrogen 32mg/dL (7-20) Creatinine 1.2mg/dL (0.6-1.0) Estimated GFR (Cockcroft-Gault) 45.5 Glucose Level 217mg/dL (70-99) Lactic Acid Level 1.2mmol/L (0.4-2.0) Calcium Level 5.8mg/dL (8.5-10.1) Phosphorus Level 2.6mg/dL (2.6-4.7) Magnesium Level 1.4mg/dL (1.8-2.4) Albumin 1.7g/dL (3.4-5.0) Test 02/19/17 06:30 02/19/17 07:28 02/19/17 12:50 White Blood Count 8.2x10^3/uL (4.0-11.0) Red Blood Count 4.40x10^6/uL (3.50-5.40) Hemoglobin 10.4g/dL (12.0-15.5) Hematocrit 33.3% (36.0-47.0) Mean Corpuscular Volume 76fL (79-100) Mean Corpuscular Hemoglobin 24pg (25-35) Mean Corpuscular Hemoglobin Concent 31g/dL (31-37) Red Cell Distribution Width 22.3% (11.5-14.5) Platelet Count 137x10^3/uL (140-400) Neutrophils (%) (Auto) 91% (31-73) Lymphocytes (%) (Auto) 5% (24-48) Monocytes (%) (Auto) 5% (0-9) Eosinophils (%) (Auto) 0% (0-3) Basophils (%) (Auto) 0% (0-3) Neutrophils # (Auto) 7.4x10^3uL (1.8-7.7) Lymphocytes # (Auto) 0.4x10^3/uL (1.0-4.8) Monocytes # (Auto) 0.4x10^3/uL (0.0-1.1) Eosinophils # (Auto) 0.0x10^3/uL (0.0-0.7) Basophils # (Auto) 0.0x10^3/uL (0.0-0.2) Sodium Level 138mmol/L (136-145) Potassium Level 3.9mmol/L (3.5-5.1) Chloride Level 97mmol/L (98-107) Carbon Dioxide Level 26mmol/L (21-32) Anion Gap 15 (6-14) Blood Urea Nitrogen 42mg/dL (7-20) Creatinine 1.7mg/dL (0.6-1.0) Estimated GFR (Cockcroft-Gault) 30.5 Glucose Level 274mg/dL (70-99) Calcium Level 7.6mg/dL (8.5-10.1) Magnesium Level 2.1mg/dL (1.8-2.4) Random Vancomycin Level 8.3mcg/mL O2 Saturation 95% (92-99) Arterial Blood pH 7.53 (7.35-7.45) Arterial Blood pCO2 at Patient Temp 32mmHg (35-46) Arterial Blood pO2 at Patient Temp 74mmHg (65-108) Arterial Blood HCO3 26mmol/L (21-28) Arterial Blood Base Excess 3mmol/L (-3-3) FiO2 40 Glucose (Fingerstick) 316mg/dL (70-99) Review of Systems Review of Systems This portion of the exam was able to be conducted as the patient was sedated. Assessment and Plan Assessmemt and Plan Problems Medical Problems: (1) ARF (acute renal failure) Status: Acute (2) Cardiac failure Status: Acute (3) Hypoxia Status: Acute (4) Respiratory failure Status: Acute Assessment: Ms. Betancourt is a 61 year old female who initially presented with respiratory failure. -Acute renal failure -NSTEMI -CAD -Septic shock -CABG -HLD -HTN -Tonsillectomy -Pulmonary fibrosis -FREDY -Obesity -Constipation -GERD -Breast excision -Tubal ligation -DM -Hypothyroidism -Anxiety -Smoking -Hepatitis A Plan: 1. Continue DVT prophylaxis 2. Continue home medications 3. Continue albumin supplementation 4. Recheck labs 5. PT/OT 6. Monitor magnesium and replace accordingly 7. Continue hydrocortisone with positive CORA 8. Continue norepinephrine and vasopressin as needed for hypotension 9. Continue piperacillin/tazobactem 10. Monitor hypocalcemia 11. Appreciate consultation from IR, ID, pulmonology, cardiology, GI, and nephrology Her prognosis is guarded. Problems: Comment Review of Relevant I have reviewed the following items trey (where applicable) has been applied. Labs Laboratory Tests Test 02/17/17 15:50 02/17/17 16:45 02/18/17 05:00 02/18/17 07:37 Lactic Acid Level 2.6mmol/L (0.4-2.0) 2.9mmol/L (0.4-2.0) Troponin I Quantitative 26.496ng/mL (0.000-0.055) O2 Saturation 97% (92-99) 97% (92-99) Arterial Blood pH 7.48 (7.35-7.45) 7.41 (7.35-7.45) Arterial Blood pCO2 at Patient Temp 32mmHg (35-46) 25mmHg (35-46) Arterial Blood pO2 at Patient Temp 105mmHg (65-108) 101mmHg (65-108) Arterial Blood HCO3 23mmol/L (21-28) 16mmol/L (21-28) Arterial Blood Base Excess 0mmol/L (-3-3) -8mmol/L (-3-3) FiO2 40 40 White Blood Count 12.4x10^3/uL (4.0-11.0) Red Blood Count 4.70x10^6/uL (3.50-5.40) Hemoglobin 10.9g/dL (12.0-15.5) Hematocrit 35.8% (36.0-47.0) Mean Corpuscular Volume 76fL (79-100) Mean Corpuscular Hemoglobin 23pg (25-35) Mean Corpuscular Hemoglobin Concent 30g/dL (31-37) Red Cell Distribution Width 21.5% (11.5-14.5) Platelet Count 188x10^3/uL (140-400) Neutrophils (%) (Auto) 92% (31-73) Lymphocytes (%) (Auto) 3% (24-48) Monocytes (%) (Auto) 5% (0-9) Eosinophils (%) (Auto) 0% (0-3) Basophils (%) (Auto) 0% (0-3) Neutrophils # (Auto) 11.4x10^3uL (1.8-7.7) Lymphocytes # (Auto) 0.3x10^3/uL (1.0-4.8) Monocytes # (Auto) 0.6x10^3/uL (0.0-1.1) Eosinophils # (Auto) 0.0x10^3/uL (0.0-0.7) Basophils # (Auto) 0.0x10^3/uL (0.0-0.2) Segmented Neutrophils % 89% (35-66) Band Neutrophils % 5% (0-9) Lymphocytes % 2% (24-48) Monocytes % 3% (0-10) Eosinophils % 1% (0-5) Platelet Estimate Adequate (ADEQUATE) Prothrombin Time 21.3SEC (11.7-14.0) Prothromb Time International Ratio 2.0 (0.8-1.1) Sodium Level 137mmol/L (136-145) Potassium Level 4.3mmol/L (3.5-5.1) Chloride Level 96mmol/L (98-107) Carbon Dioxide Level 21mmol/L (21-32) Anion Gap 20 (6-14) Blood Urea Nitrogen 47mg/dL (7-20) Creatinine 2.4mg/dL (0.6-1.0) Estimated GFR (Cockcroft-Gault) 20.5 BUN/Creatinine Ratio 20 (6-20) Glucose Level 222mg/dL (70-99) Uric Acid 8.4mg/dL (2.6-6.0) Calcium Level 7.5mg/dL (8.5-10.1) Magnesium Level 1.6mg/dL (1.8-2.4) Total Bilirubin 1.8mg/dL (0.2-1.0) Aspartate Amino Transf (AST/SGOT) 591U/L (15-37) Alanine Aminotransferase (ALT/SGPT) 192U/L (14-59) Alkaline Phosphatase 111U/L (46-116) Creatine Kinase 2504U/L (26-192) Total Protein 5.9g/dL (6.4-8.2) Albumin 3.0g/dL (3.4-5.0) Albumin/Globulin Ratio 1.0 (1.0-1.7) Test 02/18/17 09:00 02/18/17 19:31 02/19/17 00:40 02/19/17 05:00 Urine Collection Type Unknown Urine Color Danelle Urine Clarity Cloudy Urine pH 5.0 Urine Specific [place] 1.020 Urine Protein 30mg/dL (NEG-TRACE) Urine Glucose (UA) Negativemg/dL (NEG) Urine Ketones (Stick) Negativemg/dL (NEG) Urine Blood Large (NEG) Urine Nitrite Negative (NEG) Urine Bilirubin Small (NEG) Urine Urobilinogen Dipstick 1.0mg/dL (0.2 mg/dL) Urine Leukocyte Esterase Small (NEG) Urine RBC 3-5/HPF (0-2) Urine WBC 1-4/HPF (0-4) Urine Squamous Epithelial Cells None/LPF Urine Bacteria Few/HPF (0-FEW) Glucose (Fingerstick) 231mg/dL (70-99) 253mg/dL (70-99) White Blood Count 8.4x10^3/uL (4.0-11.0) Red Blood Count 4.48x10^6/uL (3.50-5.40) Hemoglobin 10.6g/dL (12.0-15.5) Hematocrit 33.8% (36.0-47.0) Mean Corpuscular Volume 75fL (79-100) Mean Corpuscular Hemoglobin 24pg (25-35) Mean Corpuscular Hemoglobin Concent 31g/dL (31-37) Red Cell Distribution Width 21.5% (11.5-14.5) Platelet Count 127x10^3/uL (140-400) Neutrophils (%) (Auto) 90% (31-73) Lymphocytes (%) (Auto) 4% (24-48) Monocytes (%) (Auto) 5% (0-9) Eosinophils (%) (Auto) 0% (0-3) Basophils (%) (Auto) 0% (0-3) Neutrophils # (Auto) 7.6x10^3uL (1.8-7.7) Lymphocytes # (Auto) 0.3x10^3/uL (1.0-4.8) Monocytes # (Auto) 0.5x10^3/uL (0.0-1.1) Eosinophils # (Auto) 0.0x10^3/uL (0.0-0.7) Basophils # (Auto) 0.0x10^3/uL (0.0-0.2) Prothrombin Time 20.3SEC (11.7-14.0) Prothromb Time International Ratio 1.9 (0.8-1.1) Sodium Level 141mmol/L (136-145) Potassium Level 2.8mmol/L (3.5-5.1) Chloride Level 108mmol/L (98-107) Carbon Dioxide Level 20mmol/L (21-32) Anion Gap 13 (6-14) Blood Urea Nitrogen 32mg/dL (7-20) Creatinine 1.2mg/dL (0.6-1.0) Estimated GFR (Cockcroft-Gault) 45.5 Glucose Level 217mg/dL (70-99) Lactic Acid Level 1.2mmol/L (0.4-2.0) Calcium Level 5.8mg/dL (8.5-10.1) Phosphorus Level 2.6mg/dL (2.6-4.7) Magnesium Level 1.4mg/dL (1.8-2.4) Albumin 1.7g/dL (3.4-5.0) Test 02/19/17 05:20 02/19/17 06:30 02/19/17 07:28 02/19/17 12:50 Glucose (Fingerstick) 271mg/dL (70-99) 316mg/dL (70-99) White Blood Count 8.2x10^3/uL (4.0-11.0) Red Blood Count 4.40x10^6/uL (3.50-5.40) Hemoglobin 10.4g/dL (12.0-15.5) Hematocrit 33.3% (36.0-47.0) Mean Corpuscular Volume 76fL (79-100) Mean Corpuscular Hemoglobin 24pg (25-35) Mean Corpuscular Hemoglobin Concent 31g/dL (31-37) Red Cell Distribution Width 22.3% (11.5-14.5) Platelet Count 137x10^3/uL (140-400) Neutrophils (%) (Auto) 91% (31-73) Lymphocytes (%) (Auto) 5% (24-48) Monocytes (%) (Auto) 5% (0-9) Eosinophils (%) (Auto) 0% (0-3) Basophils (%) (Auto) 0% (0-3) Neutrophils # (Auto) 7.4x10^3uL (1.8-7.7) Lymphocytes # (Auto) 0.4x10^3/uL (1.0-4.8) Monocytes # (Auto) 0.4x10^3/uL (0.0-1.1) Eosinophils # (Auto) 0.0x10^3/uL (0.0-0.7) Basophils # (Auto) 0.0x10^3/uL (0.0-0.2) Sodium Level 138mmol/L (136-145) Potassium Level 3.9mmol/L (3.5-5.1) Chloride Level 97mmol/L (98-107) Carbon Dioxide Level 26mmol/L (21-32) Anion Gap 15 (6-14) Blood Urea Nitrogen 42mg/dL (7-20) Creatinine 1.7mg/dL (0.6-1.0) Estimated GFR (Cockcroft-Gault) 30.5 Glucose Level 274mg/dL (70-99) Calcium Level 7.6mg/dL (8.5-10.1) Magnesium Level 2.1mg/dL (1.8-2.4) Random Vancomycin Level 8.3mcg/mL O2 Saturation 95% (92-99) Arterial Blood pH 7.53 (7.35-7.45) Arterial Blood pCO2 at Patient Temp 32mmHg (35-46) Arterial Blood pO2 at Patient Temp 74mmHg (65-108) Arterial Blood HCO3 26mmol/L (21-28) Arterial Blood Base Excess 3mmol/L (-3-3) FiO2 40 Laboratory Tests Test 02/18/17 19:31 02/19/17 00:40 02/19/17 05:00 02/19/17 05:20 Glucose (Fingerstick) 231mg/dL (70-99) 253mg/dL (70-99) 271mg/dL (70-99) White Blood Count 8.4x10^3/uL (4.0-11.0) Red Blood Count 4.48x10^6/uL (3.50-5.40) Hemoglobin 10.6g/dL (12.0-15.5) Hematocrit 33.8% (36.0-47.0) Mean Corpuscular Volume 75fL (79-100) Mean Corpuscular Hemoglobin 24pg (25-35) Mean Corpuscular Hemoglobin Concent 31g/dL (31-37) Red Cell Distribution Width 21.5% (11.5-14.5) Platelet Count 127x10^3/uL (140-400) Neutrophils (%) (Auto) 90% (31-73) Lymphocytes (%) (Auto) 4% (24-48) Monocytes (%) (Auto) 5% (0-9) Eosinophils (%) (Auto) 0% (0-3) Basophils (%) (Auto) 0% (0-3) Neutrophils # (Auto) 7.6x10^3uL (1.8-7.7) Lymphocytes # (Auto) 0.3x10^3/uL (1.0-4.8) Monocytes # (Auto) 0.5x10^3/uL (0.0-1.1) Eosinophils # (Auto) 0.0x10^3/uL (0.0-0.7) Basophils # (Auto) 0.0x10^3/uL (0.0-0.2) Prothrombin Time 20.3SEC (11.7-14.0) Prothromb Time International Ratio 1.9 (0.8-1.1) Sodium Level 141mmol/L (136-145) Potassium Level 2.8mmol/L (3.5-5.1) Chloride Level 108mmol/L (98-107) Carbon Dioxide Level 20mmol/L (21-32) Anion Gap 13 (6-14) Blood Urea Nitrogen 32mg/dL (7-20) Creatinine 1.2mg/dL (0.6-1.0) Estimated GFR (Cockcroft-Gault) 45.5 Glucose Level 217mg/dL (70-99) Lactic Acid Level 1.2mmol/L (0.4-2.0) Calcium Level 5.8mg/dL (8.5-10.1) Phosphorus Level 2.6mg/dL (2.6-4.7) Magnesium Level 1.4mg/dL (1.8-2.4) Albumin 1.7g/dL (3.4-5.0) Test 02/19/17 06:30 02/19/17 07:28 02/19/17 12:50 White Blood Count 8.2x10^3/uL (4.0-11.0) Red Blood Count 4.40x10^6/uL (3.50-5.40) Hemoglobin 10.4g/dL (12.0-15.5) Hematocrit 33.3% (36.0-47.0) Mean Corpuscular Volume 76fL (79-100) Mean Corpuscular Hemoglobin 24pg (25-35) Mean Corpuscular Hemoglobin Concent 31g/dL (31-37) Red Cell Distribution Width 22.3% (11.5-14.5) Platelet Count 137x10^3/uL (140-400) Neutrophils (%) (Auto) 91% (31-73) Lymphocytes (%) (Auto) 5% (24-48) Monocytes (%) (Auto) 5% (0-9) Eosinophils (%) (Auto) 0% (0-3) Basophils (%) (Auto) 0% (0-3) Neutrophils # (Auto) 7.4x10^3uL (1.8-7.7) Lymphocytes # (Auto) 0.4x10^3/uL (1.0-4.8) Monocytes # (Auto) 0.4x10^3/uL (0.0-1.1) Eosinophils # (Auto) 0.0x10^3/uL (0.0-0.7) Basophils # (Auto) 0.0x10^3/uL (0.0-0.2) Sodium Level 138mmol/L (136-145) Potassium Level 3.9mmol/L (3.5-5.1) Chloride Level 97mmol/L (98-107) Carbon Dioxide Level 26mmol/L (21-32) Anion Gap 15 (6-14) Blood Urea Nitrogen 42mg/dL (7-20) Creatinine 1.7mg/dL (0.6-1.0) Estimated GFR (Cockcroft-Gault) 30.5 Glucose Level 274mg/dL (70-99) Calcium Level 7.6mg/dL (8.5-10.1) Magnesium Level 2.1mg/dL (1.8-2.4) Random Vancomycin Level 8.3mcg/mL O2 Saturation 95% (92-99) Arterial Blood pH 7.53 (7.35-7.45) Arterial Blood pCO2 at Patient Temp 32mmHg (35-46) Arterial Blood pO2 at Patient Temp 74mmHg (65-108) Arterial Blood HCO3 26mmol/L (21-28) Arterial Blood Base Excess 3mmol/L (-3-3) FiO2 40 Glucose (Fingerstick) 316mg/dL (70-99) Medications Current Medications Sodium Polystyrene Sulfonate (Kayexalate) 30 gm 1X ONCE PO Last administered on 02/17/17t 03:54; Start 02/17/17 at 02:45; Stop 02/17/17 at 02:46; Status DC Ondansetron HCl (Zofran) 4 mg PRN Q6HRS PRN IV NAUSEA/VOMITING; Start 02/17/17 at 02:00 Pantoprazole Sodium (Protonix Vial) 40 mg TID IVP Last administered on 08:56; Start 02/17/17 at 09:00; Stop 02/17/17 at 13:17; Status DC Acetaminophen 650 mg 650 mg PRN Q6HRS PRN PO FEVER; Start 02/17/17 at 02:00 Midazolam HCl 100 ml @ 0 mls/hr CONT PRN IV SEE I/O RECORD Last administered on 02/17/17 20:34; Start 02/17/17 at 02:30 Levothyroxine Sodium 37.5 mcg/ Sodium Chloride 5 ml @ 100 mls/hr DAILY IVP Last administered on 02/19/17 09:25; Start 02/17/17 at 09:00 Sodium Chloride 1,000 ml @ 100 mls/hr 1X ONCE IV Last administered on 04:25; Start 02/17/17 at 04:30; Stop 02/17/17 at 11:25; Status DC Sodium Chloride (Iv Sodium Chloride 0.9% 1000ml Bag) 1,000 ml @ 100 mls/hr 1X ONCE IV Last administered on 02/17/17 04:25; Start 02/17/17 at 04:30; Stop at 09:15; Status DC Pneumococcal Polyvalent Vaccine (Do NOT chart on this placeholder) 1 each 1X ONCE MC ; Start 02/17/17 at 06:00; Stop 02/17/17 at 06:01; Status UNV Pneumococcal Polyvalent Vaccine 0.5 ml 0.5 ml ONCE ONCE VAX IM ; Start 02/17/17 at 09:00; Stop 02/17/17 at 09:01; Status DC Norepinephrine Bitartrate 250 ml @ 0 mls/hr CONT PRN IV SEE I/O RECORD Last administered on 02/18/17 11:15; Start 02/17/17 at 06:15 Sodium Chloride 1,000 ml @ 1,000 mls/hr 1X ONCE IV Last administered on 08:56; Start 02/17/17 at 08:15; Stop 02/17/17 at 09:14; Status DC Piperacillin Sod/ Tazobactam Sod 2.25 gm/Sodium Chloride 50 ml @ 100 mls/hr Q8HRS IV Last administered on 4/26/17at 05:28; Start 02/17/17 at 08:45 Magnesium Sulfate/ Dextrose (Magnesium Sulfate PREMIX 2GM) 50 ml @ 25 mls/hr 1X ONCE IV Last administered on 02/17/17 09:30; Start 02/17/17 at 09:00; Stop 02/17/17 at 10:59; Status DC Fentanyl Citrate 50 mcg 50 mcg PRN Q2HR PRN IV PAIN Last administered on 20:35; Start 02/17/17 at 09:00 Sodium Chloride (Iv Sodium Chloride 0.9% 1000ml Bag) 1,000 ml @ 1,000 mls/hr 1X ONCE IV Last administered on 02/17/17 08:57; Start 02/17/17 at 09:00; Stop 02/17/17 at 09:59; Status DC Heparin Sodium (Porcine) (Heparin Sodium) 10,000 unit STK-MED ONCE .ROUTE ; Start 02/17/17 at 09:23; Stop 02/17/17 at 09:24; Status DC Lidocaine/Sodium Bicarbonate 20 ml 20 ml STK-MED ONCE IJ ; Start 02/17/17 at 09: 23; Stop 02/17/17 at 09:24; Status DC Heparin Sodium/ Sodium Chloride 500 ml @ As Directed STK-MED ONCE .ROUTE ; Start 02/17/17 at 09:23; Stop 02/17/17 at 09:24; Status DC Lidocaine/Sodium Bicarbonate (Buffered Lidocaine 1%) 3 ml 1X ONCE IJ ; Start at 09:30; Stop 02/17/17 at 09:35; Status DC Heparin Sodium/ Sodium Chloride 60 unit 1X ONCE IV ; Start 02/17/17 at 09:30; Stop 02/17/17 at 09:35; Status DC Heparin Sodium (Porcine) (Heparin Sodium) 2,500 unit 1X ONCE INT CAT ; Start at 09:30; Stop 02/17/17 at 09:35; Status DC Sodium Bicarbonate 50 meq STK-MED ONCE .ROUTE ; Start 02/17/17 at 09:42; Stop at 09:43; Status DC Sodium Bicarbonate 100 meq 100 meq 1X ONCE IV Last administered on 02/17/17 09:51; Start 02/17/17 at 09:45; Stop 02/17/17 at 09:48; Status DC Sodium Bicarbonate 150 meq/Dextrose 1,150 ml @ 150 mls/hr Q7H40M IV Last administered on 02/17/17 10:34; Start 02/17/17 at 09:45; Stop 02/17/17 at 18:05 ; Status DC Vasopressin/ Dextrose (Vasostrict) 102 ml @ 6 mls/hr ONCE ONCE IV Last administered on 02/17/17 10:34; Start 02/17/17 at 10:00; Stop 02/18/17 at 02:59 ; Status DC Hydrocortisone Sodium Succinate (Solu-Cortef) 100 mg Q8HRS IV ; Start 02/17/17 at 10:30; Stop 02/17/17 at 10:30; Status DC Vancomycin HCl (Vanco Per Pharmacy) 1 each PRN DAILY PRN MC SEE COMMENTS Last administered on 02/17/17 10:28; Start 02/17/17 at 10:15; Stop 02/18/17 at 12:50 ; Status DC Lidocaine/Sodium Bicarbonate (Buffered Lidocaine 1%) 3 ml 1X ONCE IJ ; Start at 10:15; Stop 02/17/17 at 10:16; Status DC Heparin Sodium/ Sodium Chloride 60 unit 1X ONCE IV ; Start 02/17/17 at 10:15; Stop 02/17/17 at 10:16; Status DC Heparin Sodium (Porcine) (Heparin Sodium) 2,500 unit 1X ONCE INT CAT ; Start at 10:15; Stop 02/17/17 at 10:16; Status DC Hydrocortisone Sodium Succinate 100 mg 100 mg ONCE ONCE IV Last administered on 02/17/17 10:36; Start 02/17/17 at 10:30; Stop 02/17/17 at 10:31; Status DC Vasopressin 40 unit/Dextrose 102 ml @ 6 mls/hr CONT PRN IV SEE I/O RECORD Last administered on 02/18/17 13:53; Start 02/17/17 at 10:15 Vancomycin HCl/ Sodium Chloride (Iv Sodium Chloride 0.9% 500ml Bag) 500 ml @ 250 mls/hr ONCE ONCE IV Last administered on 02/17/17 13:53; Start 02/17/17 at 10:30; Stop 02/17/17 at 12:29; Status DC Hydrocortisone Sodium Succinate (Solu-Cortef) 100 mg Q8HRS IV Last administered on 02/19/17 05:28; Start 02/17/17 at 14:00 Vancomycin HCl 1 each 1X ONCE MC ; Start 02/19/17 at 10:30; Stop 02/19/17 at 10 :30; Status DC Chlorhexidine Gluconate 15 ml 15 ml BID SWSP Last administered on 02/19/17 09: 25; Start 02/17/17 at 21:00 Sodium Chloride 1,000 ml @ 100 mls/hr Q10H IV Last administered on 02/17/17 13:53; Start 02/17/17 at 12:15; Stop 02/17/17 at 18:58; Status DC Sodium Chloride (Iv Sodium Chloride 0.9% 1000ml Bag) 1,000 ml @ 1,000 mls/hr Q1H PRN IV hypotension; Start 02/17/17 at 12:28; Stop 02/17/17 at 18:27; Status DC Sodium Chloride (Normal Saline Flush) 10 ml 1X PRN PRN IV AP catheter pack; Start 02/17/17 at 12:30; Stop 02/18/17 at 12:29; Status DC Sodium Chloride (Normal Saline Flush) 10 ml 1X PRN PRN IV 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 catheter pack; Start 02/17/17 at 12:30; Stop 02/18/17 at 12:29; Status DC Info (PHARMACY MONITORING -- do not chart) 1 each PRN DAILY PRN MC SEE COMMENTS ; Start 02/17/17 at 12:30 Info (PHARMACY MONITORING -- do not chart) 1 each PRN DAILY PRN MC SEE COMMENTS ; Start 02/17/17 at 12:30; Status UNV Pantoprazole Sodium 40 mg 40 mg DAILY IVP Last administered on 02/19/17 09:25 ; Start 02/18/17 at 09:00 Albumin Human 50 ml @ 50 mls/hr 1X ONCE IV Last administered on 02/17/17 18: 58; Start 02/17/17 at 18:45; Stop 02/17/17 at 19:44; Status DC Sodium Chloride 1,000 ml @ 125 mls/hr 1X ONCE IV ; Start 02/17/17 at 18:45; Stop 02/18/17 at 09:15; Status DC Sodium Chloride 1,000 ml @ 125 mls/hr Q8H IV Last administered on 02/18/17 05 :42; Start 02/17/17 at 19:00; Stop 02/18/17 at 09:15; Status DC Sodium Chloride 1,000 ml @ 1,000 mls/hr Q1H PRN IV hypotension; Start 02/18/17 at 07:47; Stop 02/18/17 at 13:46; Status DC Albumin Human (Albuminar) 200 ml @ 200 mls/hr 1X PRN PRN IV Hypotension; Start 02/18/17 at 08:00; Stop 02/18/17 at 13:59; Status DC Acetaminophen (Tylenol) 500 mg 1X PRN PRN PO MILD PAIN / TEMP; Start 02/18/17 at 08:00; Stop 02/19/17 at 07:59; Status DC Diphenhydramine HCl (Benadryl) 25 mg 1X PRN PRN IV ITCHING; Start 02/18/17 at 08:00; Stop 02/19/17 at 07:59; Status DC Diphenhydramine HCl (Benadryl) 25 mg 1X PRN PRN IV ITCHING; Start 02/18/17 at 08:00; Stop 02/19/17 at 07:59; Status DC Labetalol HCl (Normodyne) 10 mg PRN Q1HR PRN IVP SBP > 180; Start 02/18/17 at 08:00; Stop 02/19/17 at 07:59; Status DC Clonidine HCl 0.1 mg 0.1 mg 1X PRN PRN PO SBP > 180; Start 02/18/17 at 08:00; Stop 02/19/17 at 07:59; Status DC Sodium Chloride (Iv Sodium Chloride 0.9% 1000ml Bag) 1,000 ml @ 400 mls/hr Q2H30M PRN IV PATENCY; Start 02/18/17 at 07:47; Stop 02/18/17 at 19:46; Status DC Info 1 each 1 each PRN DAILY PRN MC SEE COMMENTS; Start 02/18/17 at 08:00; Status UNV Magnesium Sulfate/ Dextrose 50 ml @ 25 mls/hr PRN DAILY PRN IV for Mag < 1.7 on am labs Last administered on 02/18/17 11:16; Start 02/18/17 at 08:00 Propofol 100 ml @ As Directed STK-MED ONCE IV ; Start 02/18/17 at 11:47; Stop 02/18/17 at 11:48; Status DC Propofol (Diprivan) 100 ml @ 0 mls/hr CONT PRN IV SEE I/O RECORD Last administered on 02/19/17 02:47; Start 02/18/17 at 12:45 Insulin Aspart (Novolog) 0-7 UNITS Q6HRS SQ Last administered on 02/19/17 12: 52; Start 02/19/17 at 00:00 Dextrose 12.5 gm 12.5 gm PRN Q15MIN PRN IV SEE COMMENTS; Start 02/18/17 at 21: 00 Magnesium Sulfate/ Dextrose 50 ml @ 25 mls/hr PRN DAILY PRN IV for Mag < 1.7 on am labs; Start 02/19/17 at 07:45; Stop 02/19/17 at 10:20; Status DC Potassium Chloride 50 ml @ 50 mls/hr PRN Q6HRS PRN IV For K < 3.7; Start at 07:45 Potassium Chloride 50 ml @ 50 mls/hr PRN Q2HR PRN IV total of 40mEq for K < 3.5; Start 02/19/17 at 07:45 Calcium Chloride 2000 mg/Sodium Chloride 120 ml @ 240 mls/hr 1X ONCE IV ; Start 02/19/17 at 08:00; Stop 02/19/17 at 08:29; Status DC Albumin Human (Albuminar) 100 ml @ 100 mls/hr TID IV Last administered on 02/19 09:33; Start 02/19/17 at 09:00; Stop 02/20/17 at 21:59 Bupropion HCl (Wellbutrin) 75 mg BID NG ; Start 02/19/17 at 12:00 Citalopram Hydrobromide 20 mg 20 mg DAILY NG ; Start 02/19/17 at 12:00 Heparin Sodium/ Dextrose 500 ml @ 20 mls/hr CONT PRN IV SEE I/O RECORD Last administered on 02/19/17 13:22; Start 02/19/17 at 13:15 Active Scripts Active [place] 7.5-325 Tablet (Acetaminophen/Hydrocodone Bitart) 1 Each Tablet 1 Tab PO PRN Q6HRS PRN Reported Requip (Ropinirole Hcl) 1 Mg Tablet 4 Mg PO DAILY Aspir 81 (Aspirin) 81 Mg Tablet.dr 81 Mg PO DAILY Wellbutrin Sr (Bupropion Hcl) 150 Mg Tablet.er 150 Mg PO DAILY Toprol Xl (Metoprolol Succinate) 25 Mg Tab.er.24h 12 Mg PO DAILY Lasix (Furosemide) 40 Mg Tablet 40 Mg PO DAILY Pravastatin Sodium 40 Mg Tablet 40 Mg PO DAILY Pantoprazole Sodium 40 Mg Tablet.dr 40 Mg PO DAILY Doxycycline Hyclate 100 Mg Capsule 1 Cap PO BID Hydrocodone-Apap 5-325 (Hydrocodone Bit/Acetaminophen) 1 Each Tablet 1-2 Tab PO Q4-6HRS PRN Levothyroxine Sodium 75 Mcg Tablet 1 Tab PO DAILY Citalopram Hbr (Citalopram Hydrobromide) 20 Mg Tablet 20 Mg PO DAILY Losartan Potassium 50 Mg Tablet 50 Mg PO DAILY Metformin Hcl 500 Mg Tablet 1 Tab PO TIDWMEALS Vitals/I & O Vital Sign - Last 24 Hours 02/18/17 02/18/17 02/18/17 02/18/17 14:05 14:30 15:00 15:17 Pulse 70 71 70 Resp 18 18 18 B/P 106/55 96/52 102/56 Pulse Ox 98 98 98 97 O2 Delivery Ventilator Ventilator Ventilator Ventilator 02/18/17 02/18/17 02/18/17 02/18/17 16:00 16:00 16:00 17:00 Temp 98.5 98.5 Pulse 74 74 70 Resp 17 18 B/P 97/53 97/53 97/52 Pulse Ox 97 100 O2 Delivery Ventilator Mechanical Ventilator Ventilator 02/18/17 02/18/17 02/18/17 02/18/17 17:23 18:48 19:00 20:00 Pulse 77 75 Resp 18 17 B/P 87/49 103/56 Pulse Ox 100 97 100 O2 Delivery Ventilator Ventilator Ventilator Mechanical Ventilator 02/18/17 02/18/17 02/18/17 02/18/17 20:00 20:00 20:12 21:00 Temp 98.8 98.8 Pulse 77 77 77 Resp 18 18 B/P 103/56 103/56 72/61 Pulse Ox 100 100 100 O2 Delivery Ventilator Ventilator Ventilator 02/18/17 02/18/17 02/18/17 02/18/17 22:00 23:00 23:03 23:59 Pulse 75 75 Resp 17 17 B/P 103/78 106/61 Pulse Ox 100 100 99 O2 Delivery Ventilator Ventilator Ventilator Mechanical Ventilator 02/19/17 02/19/17 02/19/17 02/19/17 00:00 00:00 01:00 01:05 Temp 99.1 99.1 Pulse 75 75 75 Resp 17 17 B/P 103/78 103/78 103/78 Pulse Ox 100 100 99 O2 Delivery Ventilator Ventilator Ventilator 02/19/17 02/19/17 02/19/17 02/19/17 02:00 03:00 03:02 04:00 Pulse 73 73 73 Resp 17 B/P 113/61 91/63 91/63 Pulse Ox 100 100 99 O2 Delivery Ventilator Ventilator Ventilator 02/19/17 02/19/17 02/19/17 02/19/17 04:00 04:00 05:00 05:05 Temp 98.9 98.9 Pulse 71 72 Resp 17 B/P 110/60 96/56 Pulse Ox 100 100 97 O2 Delivery Ventilator Mechanical Ventilator Ventilator Ventilator 02/19/17 02/19/17 02/19/17 02/19/17 06:00 07:00 07:48 08:00 Temp 99.1 99.1 Pulse 78 73 76 Resp 17 18 18 B/P 115/59 95/70 131/71 Pulse Ox 100 100 100 95 O2 Delivery Ventilator Ventilator Ventilator Ventilator 02/19/17 02/19/17 02/19/17 02/19/17 08:00 08:00 09:00 10:00 Pulse 74 84 85 Resp 18 18 B/P 125/67 99/63 88/59 Pulse Ox 100 100 O2 Delivery Mechanical Ventilator Ventilator Ventilator 02/19/17 02/19/17 02/19/17 02/19/17 10:13 11:00 11:59 12:00 Temp 99.9 99.9 Pulse 96 102 Resp 18 18 B/P 119/82 138/77 Pulse Ox 100 100 98 98 O2 Delivery Ventilator Ventilator Ventilator Ventilator 02/19/17 02/19/17 02/19/17 12:00 12:00 13:00 Pulse 102 110 Resp 18 B/P 138/74 135/69 Pulse Ox 100 O2 Delivery Mechanical Ventilator Ventilator Intake and Output 02/18/17 02/18/17 02/19/17 15:00 23:00 07:00 Intake Total 379 ml 939 ml 1377 ml Output Total 240 ml 195 ml 270 ml Balance 139 ml 744 ml 1107 ml Nutrition Consultation Dietary Evaluation: Comments: TF's on hold due to high residuals If remains intubated, rec. 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
[2017-02-19 14:09] LABS: CHOLESTEROL/HDL RATIO 7.6
--- NOTE | 2017-02-19 15:47 | RAD ---
Abdomen radiograph History: Increased residuals with orogastric feeding. Comparison: None. Findings: AP supine abdomen radiograph. Esophagogastric tube is present with tip projecting at the cardia of the stomach. The side-port is probably at the distal esophagus, but is not visualized. Visualized bowel gas pattern is without evidence of obstruction. Impression: 1. Esophagogastric tube tip projects at the cardia of the stomach. Advancement is advised.
[2017-02-19] MEDS: fentaNYL PF VIAL 100 MCG/2 ML VIAL IV PRN (19:42)
[2017-02-20] VITALS (25 sets, daily range): BP systolic 105–175; BP diastolic 64–107
[2017-02-20] MEDS: INSULIN ASPART 300 UNITS/3 ML INSULN.PEN SQ SCH ×4 (00:15→17:52)
[2017-02-20] MEDS: fentaNYL PF VIAL 100 MCG/2 ML VIAL IV PRN (04:01)
[2017-02-20] MEDS: HYDROCORTISONE SOD SUCC/PF 100 MG/2 ML VIAL. IV SCH ×3 (05:34→21:55)
[2017-02-20] MEDS: PIPERACILLIN/TAZOBACTAM 2.25 GM in IV NORMAL SALINE 50ML 50 ML IV SCH ×3 (05:35→21:55)
[2017-02-20 05:45] LABS: BASO % 0 % (0-3); EOS % 0 % (0-3); HEMATOCRIT 30.3 % (36.0-47.0); HEMOGLOBIN 9.8 g/dL (12.0-15.5); LYMPH # 0.3 x10^3/uL (1.0-4.8); LYMPH % 5 % (24-48); MEAN CORPUSCULAR HEMOGLOBIN 24 pg (25-35); MEAN CORPUSCULAR HGB CONC 32 g/dL (31-37); MEAN CORPUSCULAR VOLUME 74 fL (79-100); MONO % 6 % (0-9); NEUT % 89 % (31-73); PLATELET COUNT 109 x10^3/uL (140-400); RED BLOOD COUNT 4.07 x10^6/uL (3.50-5.40); WHITE BLOOD COUNT 6.2 x10^3/uL (4.0-11.0)
[2017-02-20 06:10] LABS: ALBUMIN 3.3 g/dL (3.4-5.0); CALCIUM 8.4 mg/dL (8.5-10.1); CREATININE 1.6 mg/dL (0.6-1.0); GFR 32.7; PHOSPHORUS 3.1 mg/dL (2.6-4.7); POTASSIUM 3.4 mmol/L (3.5-5.1)
--- NOTE | 2017-02-20 07:17 | PDOC ---
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 SKIN: No rash IV: Art line RUE/RIJ HD cath/Left subclavian Labs Lab Laboratory Tests Test 02/19/17 07:28 02/19/17 12:50 02/19/17 18:22 02/19/17 20:10 O2 Saturation 95% (92-99) Arterial Blood pH 7.53 (7.35-7.45) Arterial Blood pCO2 at Patient Temp 32mmHg (35-46) Arterial Blood pO2 at Patient Temp 74mmHg (65-108) Arterial Blood HCO3 26mmol/L (21-28) Arterial Blood Base Excess 3mmol/L (-3-3) FiO2 40 Glucose (Fingerstick) 316mg/dL (70-99) 295mg/dL (70-99) Heparin Anti-Xa Act, Unfractionated 0.32IU/mL (0.30-0.70) Test 02/20/17 00:00 02/20/17 02:00 02/20/17 05:29 02/20/17 05:30 Glucose (Fingerstick) 309mg/dL (70-99) 294mg/dL (70-99) Heparin Anti-Xa Act, Unfractionated 0.40IU/mL (0.30-0.70) White Blood Count 6.2x10^3/uL (4.0-11.0) Red Blood Count 4.07x10^6/uL (3.50-5.40) Hemoglobin 9.8g/dL (12.0-15.5) Hematocrit 30.3% (36.0-47.0) Mean Corpuscular Volume 74fL (79-100) Mean Corpuscular Hemoglobin 24pg (25-35) Mean Corpuscular Hemoglobin Concent 32g/dL (31-37) Red Cell Distribution Width 22.0% (11.5-14.5) Platelet Count 109x10^3/uL (140-400) Neutrophils (%) (Auto) 89% (31-73) Lymphocytes (%) (Auto) 5% (24-48) Monocytes (%) (Auto) 6% (0-9) Eosinophils (%) (Auto) 0% (0-3) Basophils (%) (Auto) 0% (0-3) Neutrophils # (Auto) 5.5x10^3uL (1.8-7.7) Lymphocytes # (Auto) 0.3x10^3/uL (1.0-4.8) Monocytes # (Auto) 0.4x10^3/uL (0.0-1.1) Eosinophils # (Auto) 0.0x10^3/uL (0.0-0.7) Basophils # (Auto) 0.0x10^3/uL (0.0-0.2) Sodium Level 138mmol/L (136-145) Potassium Level 3.4mmol/L (3.5-5.1) Chloride Level 99mmol/L (98-107) Carbon Dioxide Level 31mmol/L (21-32) Anion Gap 8 (6-14) Blood Urea Nitrogen 49mg/dL (7-20) Creatinine 1.6mg/dL (0.6-1.0) Estimated GFR (Cockcroft-Gault) 32.7 Glucose Level 318mg/dL (70-99) Calcium Level 8.4mg/dL (8.5-10.1) Phosphorus Level 3.1mg/dL (2.6-4.7) Magnesium Level 2.3mg/dL (1.8-2.4) Creatine Kinase 460U/L (26-192) Albumin 3.3g/dL (3.4-5.0) Objective Assessment ? sepsis vs SIRS. Did receive solumedrol in [facility]. On Solucortef. Off pressors NSTEMI Ecoli in urine 02/17 ? colonization - Res to Pip but she is responding so likely sens to Zosyn Hyperglycemia ? Aspiration - intubated- h/o Pulm fibrosis Lactic acidosis - improved but now trending BRADLEY - dehydration. Getting HD Transaminitis H/o elevated CORA DM and gastroparesis Plan Plan of Care Cont Zosyn F/u labs and cults ? D/c art line May need further eval for ? autoimmune given elevated CORA 1:640 with homogenous patten in Nov 2014 but now on hydrocortisone Critically ill NICHOLAS SIDDIQUI MD Feb 20, 2017 07:16
[2017-02-20] MEDS: ANTI-COAG MONITOR BY PHARMACY. MC PRN (07:32)
--- NOTE | 2017-02-20 07:39 | PDOC ---
SUBJECTIVE ROS BRADLEY/ ? CKD III Remains sedated and intubated OBJECTIVE Vital Signs Vital Signs Date Time Temp Pulse Resp B/P Pulse Ox O2 Delivery O2 Flow Rate FiO2 02/20/17 06:00 77 14 149/73 100 Ventilator 02/20/17 04:31 40.0 02/20/17 04:00 97.9 97.9 I & 0 Intake and Output 02/20/17 07:00 Intake Total 3549 ml Output Total 1495 ml Balance 2054 ml Intake Oral 0 ml IV Total 1116 ml Tube Feeding 2221 ml Blood Product IV Normal Saline Flush 12 ml Other 200 ml Output Urine Total 1405 ml Gastric Drainage Total 90 ml PHYSICAL EXAM Physical Exam GEN: SEdated and intubated; In no distress EYES: Sclera anicteric, Conjunctiva Normal EN: No EN Drainage, Mucous Membranes moist NECK: + JVD, + JVP, Supple, no Thyromegaly CVS: S1S2, no Murmur, No Gallop, No Rub,tr Edema RESP: rare Rales, no Rhonchi,no Acc. Muscle Use GI: BS hypoactive, NO Bruit, Non Tender, Non Distended : no CVA tenderness, no Suprapubic Tenderness DIAGNOSIS/ASSESSMENT Assessment & Plan BRADLEY/ ATN: (? Element of Rhabdo) Current fluid and E-lyte status does not necessitate emergent need for dialysis. Will re-evaluate for dialysis in the am ? Underlying CKD III due to DM / HTNsive / NS cannot be ruled out Rhabdo - CK now almost WNL Low K - replace per sliding scale - suspect partially due to low Mag; could possibly change TF to Diabetic formula Low Mag - replaced per sliding scale Resp Failure - less likely to be due to fluid alone, suspect big component of Pulm Fibrosis Edema - suspect due to RHF from Pulm fibrosis. COMMENT/RELEVANT DATA Meds Current Medications Medications (Trade) Dose Ordered Sig/Janeen Start Time Stop Time Status Last Admin Dose Admin Acetaminophen (Tylenol) 500 mg 1X PRN PRN 02/18/17 08:00 02/19/17 07:59 DC Acetaminophen 650 mg 650 mg PRN Q6HRS PRN 02/17/17 02:00 Albumin Human (Albuminar) 100 ml @ 100 mls/hr TID 02/19/17 09:00 02/20/17 21:59 4/26/17 21:30 100 MLS/HR Bupropion HCl (Wellbutrin) 75 mg BID 02/19/17 12:00 02/19/17 21:29 75 MG Calcium Chloride 2000 mg/Sodium Chloride 120 ml @ 240 mls/hr 1X ONCE 02/19/17 08:00 02/19/17 08:29 DC Chlorhexidine Gluconate (Peridex) 15 ml BID 02/17/17 21:00 02/19/17 21:29 15 ML Citalopram Hydrobromide 20 mg 20 mg DAILY 02/19/17 12:00 Clonidine HCl 0.1 mg 0.1 mg 1X PRN PRN 02/18/17 08:00 02/19/17 07:59 DC Dextrose 12.5 gm 12.5 gm PRN Q15MIN PRN 02/18/17 21:00 Diphenhydramine HCl (Benadryl) 25 mg 1X PRN PRN 02/18/17 08:00 02/19/17 07:59 DC Fentanyl Citrate (Fentanyl 2ml Vial) 50 mcg PRN Q2HR PRN 02/17/17 09:00 02/20/17 04:01 50 MCG Heparin Sodium (Porcine) (Heparin Sodium) 2,500 unit 1X ONCE 02/17/17 10:15 02/17/17 10:16 DC Heparin Sodium/ Dextrose 500 ml @ 20 mls/hr CONT PRN 02/19/17 13:15 02/19/17 13:22 20 MLS/HR Heparin Sodium/ Sodium Chloride 60 unit 1X ONCE 02/17/17 10:15 02/17/17 10:16 DC Hydrocortisone Sodium Succinate (Solu-Cortef) 100 mg Q8HRS 02/17/17 14:00 02/20/17 05:34 100 MG Hydrocortisone Sodium Succinate 100 mg 100 mg ONCE ONCE 02/17/17 10:30 02/17/17 10:31 DC 02/17/17 10:36 100 MG Info (Anti-Coagulation Monitoring By Pharmacy) 1 each PRN DAILY PRN 02/20/17 07:45 Info (PHARMACY MONITORING -- do not chart) 1 each PRN DAILY PRN 02/17/17 12:30 UNV Info 1 each 1 each PRN DAILY PRN 02/18/17 08:00 UNV Insulin Aspart (Novolog) 0-7 UNITS Q6HRS 02/19/17 00:00 02/20/17 05:46 6 UNITS Labetalol HCl (Normodyne) 10 mg PRN Q1HR PRN 02/18/17 08:00 02/19/17 07:59 DC Levothyroxine Sodium/Sodium Chloride (Synthroid/Iv Sodium Chloride 0.9% 50ml) 5 ml @ 100 mls/hr DAILY 02/17/17 09:00 02/19/17 09:25 100 MLS/HR Lidocaine/Sodium Bicarbonate (Buffered Lidocaine 1%) 3 ml 1X ONCE 02/17/17 10:15 02/17/17 10:16 DC Magnesium Sulfate/ Dextrose 50 ml @ 25 mls/hr PRN DAILY PRN 02/19/17 07:45 02/19/17 10:20 DC Magnesium Sulfate/ Dextrose (Magnesium Sulfate PREMIX 2GM) 50 ml @ 25 mls/hr 1X ONCE 02/17/17 09:00 02/17/17 10:59 DC 02/17/17 09:30 25 MLS/HR Midazolam HCl 100 ml @ 0 mls/hr CONT PRN 02/17/17 02:30 02/17/17 20:34 5 MLS/HR Norepinephrine Bitartrate 250 ml @ 0 mls/hr CONT PRN 02/17/17 06:15 02/18/17 11:15 7.5 MLS/HR Ondansetron HCl (Zofran) 4 mg PRN Q6HRS PRN 02/17/17 02:00 Pantoprazole Sodium (Protonix Vial) 40 mg DAILY 02/18/17 09:00 02/19/17 09:25 40 MG Piperacillin Sod/ Tazobactam Sod 2.25 gm/Sodium Chloride 50 ml @ 100 mls/hr Q8HRS 02/17/17 08:45 02/20/17 05:35 100 MLS/HR Pneumococcal Polyvalent Vaccine 0.5 ml 0.5 ml ONCE ONCE 02/17/17 09:00 02/17/17 09:01 DC Pneumococcal Polyvalent Vaccine (Do NOT chart on this placeholder) 1 each 1X ONCE 02/17/17 06:00 02/17/17 06:01 UNV Potassium Chloride 50 ml @ 50 mls/hr PRN Q2HR PRN 02/19/17 07:45 Propofol (Diprivan) 100 ml @ 0 mls/hr CONT PRN 02/18/17 12:45 02/19/17 02:47 5.117 MLS/HR Sodium Bicarbonate 100 meq 100 meq 1X ONCE 02/17/17 09:45 02/17/17 09:48 DC 02/17/17 09:51 100 MEQ Sodium Bicarbonate 150 meq/Dextrose 1,150 ml @ 150 mls/hr Q7H40M 02/17/17 09:45 02/17/17 18:05 DC 02/17/17 10:34 150 MLS/HR Sodium Polystyrene Sulfonate (Kayexalate) 30 gm 1X ONCE 02/17/17 02:45 02/17/17 02:46 DC 02/17/17 03:54 30 GM Sodium Bicarbonate 50 meq STK-MED ONCE 02/17/17 09:42 02/17/17 09:43 DC Sodium Chloride (Iv Sodium Chloride 0.9% 1000ml Bag) 1,000 ml @ 400 mls/hr Q2H30M PRN 02/18/17 07:47 02/18/17 19:46 DC Sodium Chloride (Normal Saline Flush) 10 ml 1X PRN PRN 02/17/17 12:30 02/18/17 12:29 DC Vancomycin HCl 1 each 1X ONCE 02/19/17 10:30 02/19/17 10:30 DC Vancomycin HCl (Vanco Per Pharmacy) 1 each PRN DAILY PRN 02/17/17 10:15 02/18/17 12:50 DC 02/17/17 10:28 1 EACH Vancomycin HCl/ Sodium Chloride (Iv Sodium Chloride 0.9% 500ml Bag) 500 ml @ 250 mls/hr ONCE ONCE 02/17/17 10:30 02/17/17 12:29 DC 02/17/17 13:53 250 MLS/HR Vasopressin 40 unit/Dextrose 102 ml @ 6 mls/hr CONT PRN 02/17/17 10:15 02/18/17 13:53 6 MLS/HR Vasopressin/ Dextrose (Vasostrict) 102 ml @ 6 mls/hr ONCE ONCE 02/17/17 10:00 02/18/17 02:59 DC 02/17/17 10:34 6 MLS/HR Lab Laboratory Tests Test 02/19/17 12:50 02/19/17 18:22 02/19/17 20:10 02/20/17 00:00 Glucose (Fingerstick) 316mg/dL (70-99) 295mg/dL (70-99) 309mg/dL (70-99) Heparin Anti-Xa Act, Unfractionated 0.32IU/mL (0.30-0.70) Test 02/20/17 02:00 02/20/17 05:29 02/20/17 05:30 Heparin Anti-Xa Act, Unfractionated 0.40IU/mL (0.30-0.70) Glucose (Fingerstick) 294mg/dL (70-99) White Blood Count 6.2x10^3/uL (4.0-11.0) Red Blood Count 4.07x10^6/uL (3.50-5.40) Hemoglobin 9.8g/dL (12.0-15.5) Hematocrit 30.3% (36.0-47.0) Mean Corpuscular Volume 74fL (79-100) Mean Corpuscular Hemoglobin 24pg (25-35) Mean Corpuscular Hemoglobin Concent 32g/dL (31-37) Red Cell Distribution Width 22.0% (11.5-14.5) Platelet Count 109x10^3/uL (140-400) Neutrophils (%) (Auto) 89% (31-73) Lymphocytes (%) (Auto) 5% (24-48) Monocytes (%) (Auto) 6% (0-9) Eosinophils (%) (Auto) 0% (0-3) Basophils (%) (Auto) 0% (0-3) Neutrophils # (Auto) 5.5x10^3uL (1.8-7.7) Lymphocytes # (Auto) 0.3x10^3/uL (1.0-4.8) Monocytes # (Auto) 0.4x10^3/uL (0.0-1.1) Eosinophils # (Auto) 0.0x10^3/uL (0.0-0.7) Basophils # (Auto) 0.0x10^3/uL (0.0-0.2) Sodium Level 138mmol/L (136-145) Potassium Level 3.4mmol/L (3.5-5.1) Chloride Level 99mmol/L (98-107) Carbon Dioxide Level 31mmol/L (21-32) Anion Gap 8 (6-14) Blood Urea Nitrogen 49mg/dL (7-20) Creatinine 1.6mg/dL (0.6-1.0) Estimated GFR (Cockcroft-Gault) 32.7 Glucose Level 318mg/dL (70-99) Calcium Level 8.4mg/dL (8.5-10.1) Phosphorus Level 3.1mg/dL (2.6-4.7) Magnesium Level 2.3mg/dL (1.8-2.4) Creatine Kinase 460U/L (26-192) Albumin 3.3g/dL (3.4-5.0) DELLA AMEZQUITA MD Feb 20, 2017 07:39
[2017-02-20 07:44] LABS: HCO3 ABG 28 mmol/L (21-28); PO2 ABG 86 mmHg (65-108); SAT O2 ABG 96 % (92-99)
[2017-02-20 07:45] LABS: FIO2 ABG 40; PCO2 ABG 35 mmHg (35-46); PH ABG 7.52 (7.35-7.45)
[2017-02-20] MEDS: buPROPion 75 MG TABLET. NG SCH ×2 (08:54→20:51)
[2017-02-20] MEDS: PANTOPRAZOLE IV PUSH 40 MG VIAL. IVP SCH (08:54)
[2017-02-20] MEDS: LEVOTHYROXINE SODIUM 37.5 MCG in IV NORMAL SALINE 50ML 5 ML IVP SCH (08:54)
[2017-02-20] MEDS: ALBUMIN HUMAN 25% 100 ML IV SCH ×3 (08:54→20:51)
[2017-02-20] MEDS: CHLORHEXIDINE 0.12% 15 ML MOUTHWASH. SWSP SCH ×2 (08:55→20:51)
[2017-02-20] MEDS: CITALOPRAM 20 MG TABLET. NG SCH (08:55)
[2017-02-20] MEDS: POTASSIUM CHLORIDE 20MEQ 50 ML IV SCH ×2 (09:47→09:48)
--- NOTE | 2017-02-20 10:31 | PDOC ---
PROGRESS NOTES Chief Complaint Chief Complaint cc: Respiratory failure -Acute renal failure -NSTEMI -CAD -Septic shock -CABG -HLD -HTN -Tonsillectomy -Pulmonary fibrosis -FREDY -Obesity -Constipation -GERD -Breast excision -Tubal ligation -DM -Hypothyroidism -Anxiety -Smoking -Hepatitis A History of Present Illness History of Present Illness Ms. Betancourt was in bed and on a ventilator when we arrived. Her ventilator settings were at A/C / 14 f / 500 VT / 40% FiO2. Her SpO2% was at 92. She was less responsive today than yesterday, and she was motionless throughout the exam. She had propofol, albumin, and PPN hanging from her IV rack. She had a mitten on her left hand and a brace on her right. Vitals Vitals Vital Signs Date Time Temp Pulse Resp B/P Pulse Ox O2 Delivery O2 Flow Rate FiO2 02/20/17 09:51 99 Ventilator 02/20/17 06:00 77 14 149/73 02/20/17 04:31 40.0 02/20/17 04:00 97.9 97.9 Physical Exam General: No acute distress, Other (This patient was on a ventilator.) Heart: Normal S1, Normal S2, No murmurs Lungs: Clear, Other (No chest retractions were present.) Abdomen: Soft, No hepatosplenomegaly Extremities: No clubbing, Normal pulses Skin: No breakdown, No significant lesion Labs LABS Laboratory Tests Test 02/19/17 12:50 02/19/17 18:22 02/19/17 20:10 02/20/17 00:00 Glucose (Fingerstick) 316mg/dL (70-99) 295mg/dL (70-99) 309mg/dL (70-99) Heparin Anti-Xa Act, Unfractionated 0.32IU/mL (0.30-0.70) Test 02/20/17 02:00 02/20/17 05:29 02/20/17 05:30 02/20/17 07:30 Heparin Anti-Xa Act, Unfractionated 0.40IU/mL (0.30-0.70) Glucose (Fingerstick) 294mg/dL (70-99) White Blood Count 6.2x10^3/uL (4.0-11.0) Red Blood Count 4.07x10^6/uL (3.50-5.40) Hemoglobin 9.8g/dL (12.0-15.5) Hematocrit 30.3% (36.0-47.0) Mean Corpuscular Volume 74fL (79-100) Mean Corpuscular Hemoglobin 24pg (25-35) Mean Corpuscular Hemoglobin Concent 32g/dL (31-37) Red Cell Distribution Width 22.0% (11.5-14.5) Platelet Count 109x10^3/uL (140-400) Neutrophils (%) (Auto) 89% (31-73) Lymphocytes (%) (Auto) 5% (24-48) Monocytes (%) (Auto) 6% (0-9) Eosinophils (%) (Auto) 0% (0-3) Basophils (%) (Auto) 0% (0-3) Neutrophils # (Auto) 5.5x10^3uL (1.8-7.7) Lymphocytes # (Auto) 0.3x10^3/uL (1.0-4.8) Monocytes # (Auto) 0.4x10^3/uL (0.0-1.1) Eosinophils # (Auto) 0.0x10^3/uL (0.0-0.7) Basophils # (Auto) 0.0x10^3/uL (0.0-0.2) Sodium Level 138mmol/L (136-145) Potassium Level 3.4mmol/L (3.5-5.1) Chloride Level 99mmol/L (98-107) Carbon Dioxide Level 31mmol/L (21-32) Anion Gap 8 (6-14) Blood Urea Nitrogen 49mg/dL (7-20) Creatinine 1.6mg/dL (0.6-1.0) Estimated GFR (Cockcroft-Gault) 32.7 Glucose Level 318mg/dL (70-99) Calcium Level 8.4mg/dL (8.5-10.1) Phosphorus Level 3.1mg/dL (2.6-4.7) Magnesium Level 2.3mg/dL (1.8-2.4) Creatine Kinase 460U/L (26-192) Albumin 3.3g/dL (3.4-5.0) O2 Saturation 96% (92-99) Arterial Blood pH 7.52 (7.35-7.45) Arterial Blood pCO2 at Patient Temp 35mmHg (35-46) Arterial Blood pO2 at Patient Temp 86mmHg (65-108) Arterial Blood HCO3 28mmol/L (21-28) Arterial Blood Base Excess 5mmol/L (-3-3) FiO2 40 Review of Systems Review of Systems This portion of the exam was not conducted due to the patient being on the ventilator. Assessment and Plan Assessmemt and Plan Problems Medical Problems: (1) ARF (acute renal failure) Status: Acute (2) Cardiac failure Status: Acute (3) Hypoxia Status: Acute (4) Respiratory failure Status: Acute Assessment: Ms. Betancourt is a 61 year old female who initially presented with respiratory failure. -Acute renal failure -NSTEMI -CAD -Septic shock -CABG -HLD -HTN -Tonsillectomy -Pulmonary fibrosis -FREDY -Obesity -Constipation -GERD -Breast excision -Tubal ligation -DM -Hypothyroidism -Anxiety -Smoking -Hepatitis A Plan: 1. Continue DVT prophylaxis 2. Continue home medications 3. Continue albumin supplementation 4. Recheck labs 5. PT/OT 6. Monitor magnesium and potassium and replace accordingly per nephrology 7. Continue hydrocortisone with positive CORA 8. Continue norepinephrine and vasopressin as needed for hypotension 9. Continue piperacillin/tazobactem 10. Monitor hypocalcemia 11. Consider FeSO4 for microcytic anemia 12. Appreciate consultation from IR, ID, pulmonology, cardiology, GI, and nephrology Her prognosis is guarded. Problems: Comment Review of Relevant I have reviewed the following items trey (where applicable) has been applied. Labs Laboratory Tests Test 02/18/17 19:31 02/19/17 00:40 02/19/17 05:00 02/19/17 05:20 Glucose (Fingerstick) 231mg/dL (70-99) 253mg/dL (70-99) 271mg/dL (70-99) White Blood Count 8.4x10^3/uL (4.0-11.0) Red Blood Count 4.48x10^6/uL (3.50-5.40) Hemoglobin 10.6g/dL (12.0-15.5) Hematocrit 33.8% (36.0-47.0) Mean Corpuscular Volume 75fL (79-100) Mean Corpuscular Hemoglobin 24pg (25-35) Mean Corpuscular Hemoglobin Concent 31g/dL (31-37) Red Cell Distribution Width 21.5% (11.5-14.5) Platelet Count 127x10^3/uL (140-400) Neutrophils (%) (Auto) 90% (31-73) Lymphocytes (%) (Auto) 4% (24-48) Monocytes (%) (Auto) 5% (0-9) Eosinophils (%) (Auto) 0% (0-3) Basophils (%) (Auto) 0% (0-3) Neutrophils # (Auto) 7.6x10^3uL (1.8-7.7) Lymphocytes # (Auto) 0.3x10^3/uL (1.0-4.8) Monocytes # (Auto) 0.5x10^3/uL (0.0-1.1) Eosinophils # (Auto) 0.0x10^3/uL (0.0-0.7) Basophils # (Auto) 0.0x10^3/uL (0.0-0.2) Prothrombin Time 20.3SEC (11.7-14.0) Prothromb Time International Ratio 1.9 (0.8-1.1) Sodium Level 141mmol/L (136-145) Potassium Level 2.8mmol/L (3.5-5.1) Chloride Level 108mmol/L (98-107) Carbon Dioxide Level 20mmol/L (21-32) Anion Gap 13 (6-14) Blood Urea Nitrogen 32mg/dL (7-20) Creatinine 1.2mg/dL (0.6-1.0) Estimated GFR (Cockcroft-Gault) 45.5 Glucose Level 217mg/dL (70-99) Lactic Acid Level 1.2mmol/L (0.4-2.0) Calcium Level 5.8mg/dL (8.5-10.1) Phosphorus Level 2.6mg/dL (2.6-4.7) Magnesium Level 1.4mg/dL (1.8-2.4) Albumin 1.7g/dL (3.4-5.0) Test 02/19/17 06:30 02/19/17 07:28 02/19/17 12:50 02/19/17 18:22 White Blood Count 8.2x10^3/uL (4.0-11.0) Red Blood Count 4.40x10^6/uL (3.50-5.40) Hemoglobin 10.4g/dL (12.0-15.5) Hematocrit 33.3% (36.0-47.0) Mean Corpuscular Volume 76fL (79-100) Mean Corpuscular Hemoglobin 24pg (25-35) Mean Corpuscular Hemoglobin Concent 31g/dL (31-37) Red Cell Distribution Width 22.3% (11.5-14.5) Platelet Count 137x10^3/uL (140-400) Neutrophils (%) (Auto) 91% (31-73) Lymphocytes (%) (Auto) 5% (24-48) Monocytes (%) (Auto) 5% (0-9) Eosinophils (%) (Auto) 0% (0-3) Basophils (%) (Auto) 0% (0-3) Neutrophils # (Auto) 7.4x10^3uL (1.8-7.7) Lymphocytes # (Auto) 0.4x10^3/uL (1.0-4.8) Monocytes # (Auto) 0.4x10^3/uL (0.0-1.1) Eosinophils # (Auto) 0.0x10^3/uL (0.0-0.7) Basophils # (Auto) 0.0x10^3/uL (0.0-0.2) Sodium Level 138mmol/L (136-145) Potassium Level 3.9mmol/L (3.5-5.1) Chloride Level 97mmol/L (98-107) Carbon Dioxide Level 26mmol/L (21-32) Anion Gap 15 (6-14) Blood Urea Nitrogen 42mg/dL (7-20) Creatinine 1.7mg/dL (0.6-1.0) Estimated GFR (Cockcroft-Gault) 30.5 Glucose Level 274mg/dL (70-99) Calcium Level 7.6mg/dL (8.5-10.1) Magnesium Level 2.1mg/dL (1.8-2.4) Triglycerides Level 220mg/dL (0-150) Cholesterol Level 84mg/dL (0-200) LDL Cholesterol, Calculated 29mg/dL (0-100) VLDL Cholesterol, Calculated 44mg/dL (0-40) Non-HDL Cholesterol Calculated 73mg/dL (0-129) HDL Cholesterol 11mg/dL (40-60) Cholesterol/HDL Ratio 7.6 Thyroid Stimulating Hormone (TSH) 2.200uIU/mL (0.358-3.74) Random Vancomycin Level 8.3mcg/mL O2 Saturation 95% (92-99) Arterial Blood pH 7.53 (7.35-7.45) Arterial Blood pCO2 at Patient Temp 32mmHg (35-46) Arterial Blood pO2 at Patient Temp 74mmHg (65-108) Arterial Blood HCO3 26mmol/L (21-28) Arterial Blood Base Excess 3mmol/L (-3-3) FiO2 40 Glucose (Fingerstick) 316mg/dL (70-99) 295mg/dL (70-99) Test 02/19/17 20:10 02/20/17 00:00 02/20/17 02:00 02/20/17 05:29 Heparin Anti-Xa Act, Unfractionated 0.32IU/mL (0.30-0.70) 0.40IU/mL (0.30-0.70) Glucose (Fingerstick) 309mg/dL (70-99) 294mg/dL (70-99) Test 02/20/17 05:30 02/20/17 07:30 White Blood Count 6.2x10^3/uL (4.0-11.0) Red Blood Count 4.07x10^6/uL (3.50-5.40) Hemoglobin 9.8g/dL (12.0-15.5) Hematocrit 30.3% (36.0-47.0) Mean Corpuscular Volume 74fL (79-100) Mean Corpuscular Hemoglobin 24pg (25-35) Mean Corpuscular Hemoglobin Concent 32g/dL (31-37) Red Cell Distribution Width 22.0% (11.5-14.5) Platelet Count 109x10^3/uL (140-400) Neutrophils (%) (Auto) 89% (31-73) Lymphocytes (%) (Auto) 5% (24-48) Monocytes (%) (Auto) 6% (0-9) Eosinophils (%) (Auto) 0% (0-3) Basophils (%) (Auto) 0% (0-3) Neutrophils # (Auto) 5.5x10^3uL (1.8-7.7) Lymphocytes # (Auto) 0.3x10^3/uL (1.0-4.8) Monocytes # (Auto) 0.4x10^3/uL (0.0-1.1) Eosinophils # (Auto) 0.0x10^3/uL (0.0-0.7) Basophils # (Auto) 0.0x10^3/uL (0.0-0.2) Sodium Level 138mmol/L (136-145) Potassium Level 3.4mmol/L (3.5-5.1) Chloride Level 99mmol/L (98-107) Carbon Dioxide Level 31mmol/L (21-32) Anion Gap 8 (6-14) Blood Urea Nitrogen 49mg/dL (7-20) Creatinine 1.6mg/dL (0.6-1.0) Estimated GFR (Cockcroft-Gault) 32.7 Glucose Level 318mg/dL (70-99) Calcium Level 8.4mg/dL (8.5-10.1) Phosphorus Level 3.1mg/dL (2.6-4.7) Magnesium Level 2.3mg/dL (1.8-2.4) Creatine Kinase 460U/L (26-192) Albumin 3.3g/dL (3.4-5.0) O2 Saturation 96% (92-99) Arterial Blood pH 7.52 (7.35-7.45) Arterial Blood pCO2 at Patient Temp 35mmHg (35-46) Arterial Blood pO2 at Patient Temp 86mmHg (65-108) Arterial Blood HCO3 28mmol/L (21-28) Arterial Blood Base Excess 5mmol/L (-3-3) FiO2 40 Laboratory Tests Test 02/19/17 12:50 02/19/17 18:22 02/19/17 20:10 02/20/17 00:00 Glucose (Fingerstick) 316mg/dL (70-99) 295mg/dL (70-99) 309mg/dL (70-99) Heparin Anti-Xa Act, Unfractionated 0.32IU/mL (0.30-0.70) Test 02/20/17 02:00 02/20/17 05:29 02/20/17 05:30 02/20/17 07:30 Heparin Anti-Xa Act, Unfractionated 0.40IU/mL (0.30-0.70) Glucose (Fingerstick) 294mg/dL (70-99) White Blood Count 6.2x10^3/uL (4.0-11.0) Red Blood Count 4.07x10^6/uL (3.50-5.40) Hemoglobin 9.8g/dL (12.0-15.5) Hematocrit 30.3% (36.0-47.0) Mean Corpuscular Volume 74fL (79-100) Mean Corpuscular Hemoglobin 24pg (25-35) Mean Corpuscular Hemoglobin Concent 32g/dL (31-37) Red Cell Distribution Width 22.0% (11.5-14.5) Platelet Count 109x10^3/uL (140-400) Neutrophils (%) (Auto) 89% (31-73) Lymphocytes (%) (Auto) 5% (24-48) Monocytes (%) (Auto) 6% (0-9) Eosinophils (%) (Auto) 0% (0-3) Basophils (%) (Auto) 0% (0-3) Neutrophils # (Auto) 5.5x10^3uL (1.8-7.7) Lymphocytes # (Auto) 0.3x10^3/uL (1.0-4.8) Monocytes # (Auto) 0.4x10^3/uL (0.0-1.1) Eosinophils # (Auto) 0.0x10^3/uL (0.0-0.7) Basophils # (Auto) 0.0x10^3/uL (0.0-0.2) Sodium Level 138mmol/L (136-145) Potassium Level 3.4mmol/L (3.5-5.1) Chloride Level 99mmol/L (98-107) Carbon Dioxide Level 31mmol/L (21-32) Anion Gap 8 (6-14) Blood Urea Nitrogen 49mg/dL (7-20) Creatinine 1.6mg/dL (0.6-1.0) Estimated GFR (Cockcroft-Gault) 32.7 Glucose Level 318mg/dL (70-99) Calcium Level 8.4mg/dL (8.5-10.1) Phosphorus Level 3.1mg/dL (2.6-4.7) Magnesium Level 2.3mg/dL (1.8-2.4) Creatine Kinase 460U/L (26-192) Albumin 3.3g/dL (3.4-5.0) O2 Saturation 96% (92-99) Arterial Blood pH 7.52 (7.35-7.45) Arterial Blood pCO2 at Patient Temp 35mmHg (35-46) Arterial Blood pO2 at Patient Temp 86mmHg (65-108) Arterial Blood HCO3 28mmol/L (21-28) Arterial Blood Base Excess 5mmol/L (-3-3) FiO2 40 Microbiology 02/18/17 Urine Culture - Preliminary, Resulted 02/18/17 Urine Culture Result 1 (NORBERTO) - Preliminary, Resulted Medications Current Medications Sodium Polystyrene Sulfonate (Kayexalate) 30 gm 1X ONCE PO Last administered on 02/17/17 03:54; Start 02/17/17 at 02:45; Stop 02/17/17 at 02:46; Status DC Ondansetron HCl (Zofran) 4 mg PRN Q6HRS PRN IV NAUSEA/VOMITING; Start 02/17/17 at 02:00 Pantoprazole Sodium (Protonix Vial) 40 mg TID IVP Last administered on 08:56; Start 02/17/17 at 09:00; Stop 02/17/17 at 13:17; Status DC Acetaminophen 650 mg 650 mg PRN Q6HRS PRN PO FEVER; Start 02/17/17 at 02:00 Midazolam HCl 100 ml @ 0 mls/hr CONT PRN IV SEE I/O RECORD Last administered on 02/17/17 20:34; Start 02/17/17 at 02:30 Levothyroxine Sodium 37.5 mcg/ Sodium Chloride 5 ml @ 100 mls/hr DAILY IVP Last administered on 02/20/17 08:54; Start 02/17/17 at 09:00 Sodium Chloride 1,000 ml @ 100 mls/hr 1X ONCE IV Last administered on 04:25; Start 02/17/17 at 04:30; Stop 02/17/17 at 11:25; Status DC Sodium Chloride (Iv Sodium Chloride 0.9% 1000ml Bag) 1,000 ml @ 100 mls/hr 1X ONCE IV Last administered on 02/17/17 04:25; Start 02/17/17 at 04:30; Stop at 09:15; Status DC Pneumococcal Polyvalent Vaccine (Do NOT chart on this placeholder) 1 each 1X ONCE MC ; Start 02/17/17 at 06:00; Stop 02/17/17 at 06:01; Status UNV Pneumococcal Polyvalent Vaccine 0.5 ml 0.5 ml ONCE ONCE VAX IM ; Start 02/17/17 at 09:00; Stop 02/17/17 at 09:01; Status DC Norepinephrine Bitartrate 250 ml @ 0 mls/hr CONT PRN IV SEE I/O RECORD Last administered on 02/18/17 11:15; Start 02/17/17 at 06:15 Sodium Chloride 1,000 ml @ 1,000 mls/hr 1X ONCE IV Last administered on 08:56; Start 02/17/17 at 08:15; Stop 02/17/17 at 09:14; Status DC Piperacillin Sod/ Tazobactam Sod 2.25 gm/Sodium Chloride 50 ml @ 100 mls/hr Q8HRS IV Last administered on 02/20/17 05:35; Start 02/17/17 at 08:45 Magnesium Sulfate/ Dextrose (Magnesium Sulfate PREMIX 2GM) 50 ml @ 25 mls/hr 1X ONCE IV Last administered on 02/17/17 09:30; Start 02/17/17 at 09:00; Stop 02/17/17 at 10:59; Status DC Fentanyl Citrate 50 mcg 50 mcg PRN Q2HR PRN IV PAIN Last administered on 04:01; Start 02/17/17 at 09:00 Sodium Chloride (Iv Sodium Chloride 0.9% 1000ml Bag) 1,000 ml @ 1,000 mls/hr 1X ONCE IV Last administered on 02/17/17 08:57; Start 02/17/17 at 09:00; Stop 02/17/17 at 09:59; Status DC Heparin Sodium (Porcine) (Heparin Sodium) 10,000 unit STK-MED ONCE .ROUTE ; Start 02/17/17 at 09:23; Stop 02/17/17 at 09:24; Status DC Lidocaine/Sodium Bicarbonate 20 ml 20 ml STK-MED ONCE IJ ; Start 02/17/17 at 09: 23; Stop 02/17/17 at 09:24; Status DC Heparin Sodium/ Sodium Chloride 500 ml @ As Directed STK-MED ONCE .ROUTE ; Start 02/17/17 at 09:23; Stop 02/17/17 at 09:24; Status DC Lidocaine/Sodium Bicarbonate (Buffered Lidocaine 1%) 3 ml 1X ONCE IJ ; Start at 09:30; Stop 02/17/17 at 09:35; Status DC Heparin Sodium/ Sodium Chloride 60 unit 1X ONCE IV ; Start 02/17/17 at 09:30; Stop 02/17/17 at 09:35; Status DC Heparin Sodium (Porcine) (Heparin Sodium) 2,500 unit 1X ONCE INT CAT ; Start at 09:30; Stop 02/17/17 at 09:35; Status DC Sodium Bicarbonate 50 meq STK-MED ONCE .ROUTE ; Start 02/17/17 at 09:42; Stop at 09:43; Status DC Sodium Bicarbonate 100 meq 100 meq 1X ONCE IV Last administered on 02/17/17 09:51; Start 02/17/17 at 09:45; Stop 02/17/17 at 09:48; Status DC Sodium Bicarbonate 150 meq/Dextrose 1,150 ml @ 150 mls/hr Q7H40M IV Last administered on 02/17/17 10:34; Start 02/17/17 at 09:45; Stop 02/17/17 at 18:05 ; Status DC Vasopressin/ Dextrose (Vasostrict) 102 ml @ 6 mls/hr ONCE ONCE IV Last administered on 02/17/17 10:34; Start 02/17/17 at 10:00; Stop 02/18/17 at 02:59 ; Status DC Hydrocortisone Sodium Succinate (Solu-Cortef) 100 mg Q8HRS IV ; Start 02/17/17 at 10:30; Stop 02/17/17 at 10:30; Status DC Vancomycin HCl (Vanco Per Pharmacy) 1 each PRN DAILY PRN MC SEE COMMENTS Last administered on 02/17/17 10:28; Start 02/17/17 at 10:15; Stop 02/18/17 at 12:50 ; Status DC Lidocaine/Sodium Bicarbonate (Buffered Lidocaine 1%) 3 ml 1X ONCE IJ ; Start at 10:15; Stop 02/17/17 at 10:16; Status DC Heparin Sodium/ Sodium Chloride 60 unit 1X ONCE IV ; Start 02/17/17 at 10:15; Stop 02/17/17 at 10:16; Status DC Heparin Sodium (Porcine) (Heparin Sodium) 2,500 unit 1X ONCE INT CAT ; Start at 10:15; Stop 02/17/17 at 10:16; Status DC Hydrocortisone Sodium Succinate 100 mg 100 mg ONCE ONCE IV Last administered on 02/17/17 10:36; Start 02/17/17 at 10:30; Stop 02/17/17 at 10:31; Status DC Vasopressin 40 unit/Dextrose 102 ml @ 6 mls/hr CONT PRN IV SEE I/O RECORD Last administered on 02/18/17 13:53; Start 02/17/17 at 10:15 Vancomycin HCl/ Sodium Chloride (Iv Sodium Chloride 0.9% 500ml Bag) 500 ml @ 250 mls/hr ONCE ONCE IV Last administered on 02/17/17 13:53; Start 02/17/17 at 10:30; Stop 02/17/17 at 12:29; Status DC Hydrocortisone Sodium Succinate (Solu-Cortef) 100 mg Q8HRS IV Last administered on 02/20/17 05:34; Start 02/17/17 at 14:00 Vancomycin HCl 1 each 1X ONCE MC ; Start 02/19/17 at 10:30; Stop 02/19/17 at 10 :30; Status DC Chlorhexidine Gluconate 15 ml 15 ml BID SWSP Last administered on 02/20/17 08: 55; Start 02/17/17 at 21:00 Sodium Chloride 1,000 ml @ 100 mls/hr Q10H IV Last administered on 02/17/17 13:53; Start 02/17/17 at 12:15; Stop 02/17/17 at 18:58; Status DC Sodium Chloride (Iv Sodium Chloride 0.9% 1000ml Bag) 1,000 ml @ 1,000 mls/hr Q1H PRN IV hypotension; Start 02/17/17 at 12:28; Stop 02/17/17 at 18:27; Status DC Sodium Chloride (Normal Saline Flush) 10 ml 1X PRN PRN IV AP catheter pack; Start 02/17/17 at 12:30; Stop 02/18/17 at 12:29; Status DC Sodium Chloride (Normal Saline Flush) 10 ml 1X PRN PRN IV [employer] catheter pack; Start 02/17/17 at 12:30; Stop 02/18/17 at 12:29; Status DC Info (PHARMACY MONITORING -- do not chart) 1 each PRN DAILY PRN MC SEE COMMENTS ; Start 02/17/17 at 12:30 Info (PHARMACY MONITORING -- do not chart) 1 each PRN DAILY PRN MC SEE COMMENTS ; Start 02/17/17 at 12:30; Status UNV Pantoprazole Sodium 40 mg 40 mg DAILY IVP Last administered on 02/20/17 08:54 ; Start 02/18/17 at 09:00 Albumin Human 50 ml @ 50 mls/hr 1X ONCE IV Last administered on 02/17/17 18: 58; Start 02/17/17 at 18:45; Stop 02/17/17 at 19:44; Status DC Sodium Chloride 1,000 ml @ 125 mls/hr 1X ONCE IV ; Start 02/17/17 at 18:45; Stop 02/18/17 at 09:15; Status DC Sodium Chloride 1,000 ml @ 125 mls/hr Q8H IV Last administered on 02/18/17 05 :42; Start 02/17/17 at 19:00; Stop 02/18/17 at 09:15; Status DC Sodium Chloride 1,000 ml @ 1,000 mls/hr Q1H PRN IV hypotension; Start 02/18/17 at 07:47; Stop 02/18/17 at 13:46; Status DC Albumin Human (Albuminar) 200 ml @ 200 mls/hr 1X PRN PRN IV Hypotension; Start 02/18/17 at 08:00; Stop 02/18/17 at 13:59; Status DC Acetaminophen (Tylenol) 500 mg 1X PRN PRN PO MILD PAIN / TEMP; Start 02/18/17 at 08:00; Stop 02/19/17 at 07:59; Status DC Diphenhydramine HCl (Benadryl) 25 mg 1X PRN PRN IV ITCHING; Start 02/18/17 at 08:00; Stop 02/19/17 at 07:59; Status DC Diphenhydramine HCl (Benadryl) 25 mg 1X PRN PRN IV ITCHING; Start 02/18/17 at 08:00; Stop 02/19/17 at 07:59; Status DC Labetalol HCl (Normodyne) 10 mg PRN Q1HR PRN IVP SBP > 180; Start 02/18/17 at 08:00; Stop 02/19/17 at 07:59; Status DC Clonidine HCl 0.1 mg 0.1 mg 1X PRN PRN PO SBP > 180; Start 02/18/17 at 08:00; Stop 02/19/17 at 07:59; Status DC Sodium Chloride (Iv Sodium Chloride 0.9% 1000ml Bag) 1,000 ml @ 400 mls/hr Q2H30M PRN IV PATENCY; Start 02/18/17 at 07:47; Stop 02/18/17 at 19:46; Status DC Info 1 each 1 each PRN DAILY PRN MC SEE COMMENTS; Start 02/18/17 at 08:00; Status UNV Magnesium Sulfate/ Dextrose 50 ml @ 25 mls/hr PRN DAILY PRN IV for Mag < 1.7 on am labs Last administered on 02/18/17 11:16; Start 02/18/17 at 08:00 Propofol 100 ml @ As Directed STK-MED ONCE IV ; Start 02/18/17 at 11:47; Stop 02/18/17 at 11:48; Status DC Propofol (Diprivan) 100 ml @ 0 mls/hr CONT PRN IV SEE I/O RECORD Last administered on 02/19/17 02:47; Start 02/18/17 at 12:45 Insulin Aspart (Novolog) 0-7 UNITS Q6HRS SQ Last administered on 02/20/17 05: 46; Start 02/19/17 at 00:00 Dextrose 12.5 gm 12.5 gm PRN Q15MIN PRN IV SEE COMMENTS; Start 02/18/17 at 21: 00 Magnesium Sulfate/ Dextrose 50 ml @ 25 mls/hr PRN DAILY PRN IV for Mag < 1.7 on am labs; Start 02/19/17 at 07:45; Stop 02/19/17 at 10:20; Status DC Potassium Chloride 50 ml @ 50 mls/hr PRN Q6HRS PRN IV For K < 3.7; Start at 07:45 Potassium Chloride 50 ml @ 50 mls/hr PRN Q2HR PRN IV total of 40mEq for K < 3.5; Start 02/19/17 at 07:45 Calcium Chloride 2000 mg/Sodium Chloride 120 ml @ 240 mls/hr 1X ONCE IV ; Start 02/19/17 at 08:00; Stop 02/19/17 at 08:29; Status DC Albumin Human (Albuminar) 100 ml @ 100 mls/hr TID IV Last administered on 02/20 08:54; Start 02/19/17 at 09:00; Stop 02/20/17 at 21:59 Bupropion HCl (Wellbutrin) 75 mg BID NG Last administered on 02/20/17 08:54; Start 02/19/17 at 12:00 Citalopram Hydrobromide 20 mg 20 mg DAILY NG Last administered on 02/20/17 08: 55; Start 02/19/17 at 12:00 Heparin Sodium/ Dextrose 500 ml @ 20 mls/hr CONT PRN IV SEE I/O RECORD Last administered on 02/19/17 13:22; Start 02/19/17 at 13:15 Info 1 each 1 each PRN DAILY PRN MC SEE COMMENTS Last administered on 07:32; Start 02/20/17 at 07:45 Potassium Chloride (KCl Premix 20meq) 50 ml @ 50 mls/hr Q1HR IV Last administered on 02/20/17 09:48; Start 02/20/17 at 09:00; Stop 02/20/17 at 10:59 Active Scripts Active [place] 7.5-325 Tablet (Acetaminophen/Hydrocodone Bitart) 1 Each Tablet 1 Tab PO PRN Q6HRS PRN Reported Requip (Ropinirole Hcl) 1 Mg Tablet 4 Mg PO DAILY Aspir 81 (Aspirin) 81 Mg Tablet.dr 81 Mg PO DAILY Wellbutrin Sr (Bupropion Hcl) 150 Mg Tablet.er 150 Mg PO DAILY Toprol Xl (Metoprolol Succinate) 25 Mg Tab.er.24h 12 Mg PO DAILY Lasix (Furosemide) 40 Mg Tablet 40 Mg PO DAILY Pravastatin Sodium 40 Mg Tablet 40 Mg PO DAILY Pantoprazole Sodium 40 Mg Tablet.dr 40 Mg PO DAILY Doxycycline Hyclate 100 Mg Capsule 1 Cap PO BID Hydrocodone-Apap 5-325 (Hydrocodone Bit/Acetaminophen) 1 Each Tablet 1-2 Tab PO Q4-6HRS PRN Levothyroxine Sodium 75 Mcg Tablet 1 Tab PO DAILY Citalopram Hbr (Citalopram Hydrobromide) 20 Mg Tablet 20 Mg PO DAILY Losartan Potassium 50 Mg Tablet 50 Mg PO DAILY Metformin Hcl 500 Mg Tablet 1 Tab PO TIDWMEALS Vitals/I & O Vital Sign - Last 24 Hours 02/19/17 02/19/17 02/19/17 02/19/17 11:00 11:59 12:00 12:00 Temp 99.9 99.9 Pulse 96 102 102 Resp 18 18 B/P 119/82 138/77 138/74 Pulse Ox 100 98 98 O2 Delivery Ventilator Ventilator Ventilator 02/19/17 02/19/17 02/19/17 02/19/17 12:00 13:00 13:10 14:00 Pulse 110 97 Resp 18 14 B/P 135/69 119/61 Pulse Ox 100 100 100 O2 Delivery Mechanical Ventilator Ventilator Ventilator Ventilator 02/19/17 02/19/17 02/19/17 02/19/17 15:00 15:11 16:00 16:00 Temp 99.4 99.4 Pulse 102 117 Resp 14 14 B/P 150/70 171/85 Pulse Ox 99 100 97 O2 Delivery Ventilator Ventilator Ventilator Mechanical Ventilator 02/19/17 02/19/17 02/19/17 02/19/17 16:00 17:00 17:27 18:00 Pulse 114 116 92 Resp 14 14 B/P 167/62 174/92 113/68 Pulse Ox 97 99 99 O2 Delivery Ventilator Ventilator Ventilator 02/19/17 02/19/17 02/19/17 02/19/17 19:00 19:42 20:00 20:00 Temp 99.0 99.0 Pulse 111 89 Resp 16 17 14 B/P 172/85 125/59 Pulse Ox 96 99 99 O2 Delivery Ventilator Mechanical Ventilator Ventilator O2 Flow Rate 40.0 02/19/17 02/19/17 02/19/17 02/19/17 20:00 20:03 21:00 22:00 Pulse 89 86 82 Resp 14 14 B/P 125/59 124/60 158/79 Pulse Ox 100 100 100 O2 Delivery Ventilator Ventilator Ventilator 02/19/17 02/19/17 02/19/17 02/20/17 23:00 23:16 23:59 00:00 Temp 98.8 98.8 Pulse 88 88 Resp 14 14 B/P 143/79 138/69 Pulse Ox 100 100 100 O2 Delivery Ventilator Ventilator Mechanical Ventilator Ventilator 02/20/17 02/20/17 02/20/17 02/20/17 00:00 00:51 01:00 02:00 Pulse 88 82 82 Resp 14 14 B/P 143/79 140/68 143/70 Pulse Ox 100 100 100 O2 Delivery Ventilator Ventilator Ventilator 02/20/17 02/20/17 02/20/17 02/20/17 03:00 03:14 04:00 04:00 Temp 97.9 97.9 Pulse 80 88 75 Resp 14 14 B/P 142/69 143/79 166/80 Pulse Ox 100 100 100 O2 Delivery Ventilator Ventilator Ventilator 02/20/17 02/20/17 02/20/17 02/20/17 04:00 04:01 04:31 04:59 Pulse 75 Resp 14 14 B/P 166/80 Pulse Ox 100 100 O2 Delivery Mechanical Ventilator Ventilator O2 Flow Rate 40.0 40.0 02/20/17 02/20/17 02/20/17 02/20/17 05:00 05:51 06:00 07:32 Pulse 77 77 Resp 14 14 B/P 142/66 149/73 Pulse Ox 100 100 100 100 O2 Delivery Ventilator Ventilator Ventilator Ventilator 02/20/17 09:51 Pulse Ox 99 O2 Delivery Ventilator Intake and Output 02/19/17 02/19/17 02/20/17 15:00 23:00 07:00 Intake Total 940 ml 1172 ml 1437 ml Output Total 270 ml 870 ml 355 ml Balance 670 ml 302 ml 1082 ml Nutrition Consultation Dietary Evaluation: Comments: Rec. TF's with Peptamen AF, goal rate 55 ml/hr start at 15 ml/hr, increase by 15 ml/hr q8h to goal rate flushes PRN while on IVF's Expected Outcomes/Goals: Tolerate TF's at goal rate Malnutrition Findings: Reduced Credit Administration Officer Strength: N/A Malnutrition related to morbid: No Weight Status: Obese CASTLE,NIAL K III DO Feb 20, 2017 10:31
--- NOTE | 2017-02-20 13:07 | RAD ---
Portable chest, 02/20/2017: History: Respiratory failure, increased pressures Comparison is made to a study from 02/18/2017. The ET tube tip lies well above the sonia. A left subclavian central venous catheter extends into the superior vena cava. A right jugular dialysis type catheter extends into the mid right atrium. An NG tube extends into the stomach. The heart remains at the upper limits of normal in size. Reticulonodular pulmonary opacities are unchanged. No new pulmonary abnormality is seen. There is no evidence of pleural fluid or pneumothorax. IMPRESSION: No significant change since 02/18/2017.
--- NOTE | 2017-02-20 13:10 | PDOC ---
Objective: Objective: Per RN - tube feeds w/ slow rate. Family asks about other options for gastroparesis. Vital Signs: Vital Signs Date Time Temp Pulse Resp B/P Pulse Ox O2 Delivery O2 Flow Rate FiO2 02/20/17 11:41 99 Ventilator 02/20/17 06:00 77 14 149/73 02/20/17 04:31 40.0 02/20/17 04:00 97.9 97.9 Labs: Laboratory Tests Test 02/19/17 18:22 02/19/17 20:10 02/20/17 00:00 02/20/17 02:00 Glucose (Fingerstick) 295mg/dL 309mg/dL Heparin Anti-Xa Act, Unfractionated 0.32IU/mL 0.40IU/mL Test 02/20/17 05:29 02/20/17 05:30 02/20/17 07:30 02/20/17 10:00 Glucose (Fingerstick) 294mg/dL White Blood Count 6.2x10^3/uL Red Blood Count 4.07x10^6/uL Hemoglobin 9.8g/dL Hematocrit 30.3% Mean Corpuscular Volume 74fL Mean Corpuscular Hemoglobin 24pg Mean Corpuscular Hemoglobin Concent 32g/dL Red Cell Distribution Width 22.0% Platelet Count 109x10^3/uL Neutrophils (%) (Auto) 89% Lymphocytes (%) (Auto) 5% Monocytes (%) (Auto) 6% Eosinophils (%) (Auto) 0% Basophils (%) (Auto) 0% Neutrophils # (Auto) 5.5x10^3uL Lymphocytes # (Auto) 0.3x10^3/uL Monocytes # (Auto) 0.4x10^3/uL Eosinophils # (Auto) 0.0x10^3/uL Basophils # (Auto) 0.0x10^3/uL Sodium Level 138mmol/L Potassium Level 3.4mmol/L Chloride Level 99mmol/L Carbon Dioxide Level 31mmol/L Anion Gap 8 Blood Urea Nitrogen 49mg/dL Creatinine 1.6mg/dL Estimated GFR (Cockcroft-Gault) 32.7 Glucose Level 318mg/dL Calcium Level 8.4mg/dL Phosphorus Level 3.1mg/dL Magnesium Level 2.3mg/dL Creatine Kinase 460U/L Albumin 3.3g/dL O2 Saturation 96% Arterial Blood pH 7.52 Arterial Blood pCO2 at Patient Temp 35mmHg Arterial Blood pO2 at Patient Temp 86mmHg Arterial Blood HCO3 28mmol/L Arterial Blood Base Excess 5mmol/L FiO2 40 Heparin Anti-Xa Act, Unfractionated 0.50IU/mL PE: GEN: intubated LUNGS: vent HEART: tachycardic ABD: BS+, soft NEURO/PSYCH: moving head back and forth A/P: NSTEMI, resp failure, BRADLEY/CKD Abnormal LFTs - improved Chronic n/v/retching, suspected gastroparesis, DM -EGD and colonoscopy 02/14/17: chronic gastritis, hiatal hernia, sigmoid diverticulum, internal hemorrhoids -on IV PPI, previous adverse reaction to Reglan -OG feeds at slow rate -- Continue same per GI. Family asks about additional treatments for gastroparesis - Reglan likely poor choice w/ previous adverse reaction (felt jittery, restless legs). JF CENTENO Feb 20, 2017 13:10
--- NOTE | 2017-02-20 13:58 | PDOC ---
ELY CHURCH MIXER OPERATOR HOT METAL 02/20/17 1358: CARDIO Progress Notes Date and Time Date of Service 02/20/2017 Time of Evaluation 1330 Subjective Subjective: Other (intubated. sedated) Vitals Vitals Vital Signs Date Time Temp Pulse Resp B/P Pulse Ox O2 Delivery O2 Flow Rate FiO2 02/20/17 13:18 98 Ventilator 02/20/17 06:00 77 14 149/73 02/20/17 04:31 40.0 02/20/17 04:00 97.9 97.9 Weight Weight [ ] Input and Output Intake and Output Intake and Output 02/20/17 07:00 Intake Total 3549 ml Output Total 1495 ml Balance 2054 ml Intake Oral 0 ml IV Total 1116 ml Tube Feeding 2221 ml Blood Product IV Normal Saline Flush 12 ml Other 200 ml Output Urine Total 1405 ml Gastric Drainage Total 90 ml Laboratory Labs Laboratory Tests Test 02/19/17 18:22 02/19/17 20:10 02/20/17 00:00 02/20/17 02:00 Glucose (Fingerstick) 295mg/dL (70-99) 309mg/dL (70-99) Heparin Anti-Xa Act, Unfractionated 0.32IU/mL (0.30-0.70) 0.40IU/mL (0.30-0.70) Test 02/20/17 05:29 02/20/17 05:30 02/20/17 07:30 02/20/17 10:00 Glucose (Fingerstick) 294mg/dL (70-99) White Blood Count 6.2x10^3/uL (4.0-11.0) Red Blood Count 4.07x10^6/uL (3.50-5.40) Hemoglobin 9.8g/dL (12.0-15.5) Hematocrit 30.3% (36.0-47.0) Mean Corpuscular Volume 74fL (79-100) Mean Corpuscular Hemoglobin 24pg (25-35) Mean Corpuscular Hemoglobin Concent 32g/dL (31-37) Red Cell Distribution Width 22.0% (11.5-14.5) Platelet Count 109x10^3/uL (140-400) Neutrophils (%) (Auto) 89% (31-73) Lymphocytes (%) (Auto) 5% (24-48) Monocytes (%) (Auto) 6% (0-9) Eosinophils (%) (Auto) 0% (0-3) Basophils (%) (Auto) 0% (0-3) Neutrophils # (Auto) 5.5x10^3uL (1.8-7.7) Lymphocytes # (Auto) 0.3x10^3/uL (1.0-4.8) Monocytes # (Auto) 0.4x10^3/uL (0.0-1.1) Eosinophils # (Auto) 0.0x10^3/uL (0.0-0.7) Basophils # (Auto) 0.0x10^3/uL (0.0-0.2) Sodium Level 138mmol/L (136-145) Potassium Level 3.4mmol/L (3.5-5.1) Chloride Level 99mmol/L (98-107) Carbon Dioxide Level 31mmol/L (21-32) Anion Gap 8 (6-14) Blood Urea Nitrogen 49mg/dL (7-20) Creatinine 1.6mg/dL (0.6-1.0) Estimated GFR (Cockcroft-Gault) 32.7 Glucose Level 318mg/dL (70-99) Calcium Level 8.4mg/dL (8.5-10.1) Phosphorus Level 3.1mg/dL (2.6-4.7) Magnesium Level 2.3mg/dL (1.8-2.4) Creatine Kinase 460U/L (26-192) Albumin 3.3g/dL (3.4-5.0) O2 Saturation 96% (92-99) Arterial Blood pH 7.52 (7.35-7.45) Arterial Blood pCO2 at Patient Temp 35mmHg (35-46) Arterial Blood pO2 at Patient Temp 86mmHg (65-108) Arterial Blood HCO3 28mmol/L (21-28) Arterial Blood Base Excess 5mmol/L (-3-3) FiO2 40 Heparin Anti-Xa Act, Unfractionated 0.50IU/mL (0.30-0.70) Microbiology Micro Microbiology 02/18/17 Urine Culture - Preliminary, Resulted 02/18/17 Urine Culture Result 1 (NORBERTO) - Preliminary, Resulted Physical Exam HEENT: Neck Supple W Full Motion Chest: Symmetric LUNGS: Other (mechanical ventilation) Heart: S1S2, RRR (Sinus tach), other (distant heart tones ) Abdomen: Soft N/T Extremities: Other (trace to 1+ bilateral LE pitting edema) Neurology: other (on sedation) Assessment Assessment 1. Multiorgan failure with sepsis: off pressors 2. NSTEMI: multifactorial but with significant troponin peaked at 31. Current EF 55-60% 3. CAD: at [facility]- CABG 04/30/16 with MCCLAIN to the LAD, FIGUEROA T graft to the circumflex obtuse marginal, and left radial artery to the PDA. At the time of LHC, LVEF 55-60%. 4. Acute on chronic respiratory failure: on vent 5. Shock liver with notable thrombocytopenia 6. BRADLEY/ATN with CKD: initially with temporary HD. Renal function improved 7. Diabetes 8. Hypothyroidism 9. NSVT x1 with Hypokalemia: otherwise sinus tach Recommendations 1. Anticipate LHC once extracardiac acute issues resolves 2. Continue with heparin drip 3. Start on low dose lopressor 4. Replace K. 5. Supportive care CAMPOS PATIÑO MD 02/20/17 1650: CARDIO Progress Notes Assessment Assessment Patient seen and examined. Agree with CHENILLE MACHINE OPERATOR's assessment and plan. Continue vent management per pulmonary team. Presently off pressors. Continue intravenous antibiotics and heparin per protocol. Plan for cardiac catheterization for non-STEMI once active issues resolve.. ELY CHURCH APRN Feb 20, 2017 13:58 CAMPOS PATIÑO MD Feb 20, 2017 16:50
[2017-02-20] MEDS ORDERED: METOPROLOL TARTRATE 5 MG/5 ML VIAL. IVP ONE (14:00)
[2017-02-20] MEDS: METOPROLOL TARTRATE 5 MG/5 ML VIAL. IVP SCH ×2 (14:00→20:29)
[2017-02-20] MEDS: HEPARIN 25,000UTS/500ML PREMIX 500 ML IV PRN (14:18)
--- NOTE | 2017-02-20 19:06 | PDOC ---
PULMONARY PROGRESS NOTES Subjective PT DID NOT DO WELL ON TRIAL Vitals Vital Signs Date Time Temp Pulse Resp B/P Pulse Ox O2 Delivery O2 Flow Rate FiO2 02/20/17 18:00 Mechanical Ventilator 02/20/17 18:00 80 16 132/87 97 02/20/17 16:00 98.9 98.9 02/20/17 04:31 40.0 Lungs: Clear, Other (No chest retractions were present.) Cardiovascular: S1, S2 Abdomen: Soft Extremities: No Edema Skin: Warm Labs Laboratory Tests Test 02/18/17 19:31 02/19/17 00:40 02/19/17 05:00 02/19/17 05:20 Glucose (Fingerstick) 231mg/dL (70-99) 253mg/dL (70-99) 271mg/dL (70-99) White Blood Count 8.4x10^3/uL (4.0-11.0) Red Blood Count 4.48x10^6/uL (3.50-5.40) Hemoglobin 10.6g/dL (12.0-15.5) Hematocrit 33.8% (36.0-47.0) Mean Corpuscular Volume 75fL (79-100) Mean Corpuscular Hemoglobin 24pg (25-35) Mean Corpuscular Hemoglobin Concent 31g/dL (31-37) Red Cell Distribution Width 21.5% (11.5-14.5) Platelet Count 127x10^3/uL (140-400) Neutrophils (%) (Auto) 90% (31-73) Lymphocytes (%) (Auto) 4% (24-48) Monocytes (%) (Auto) 5% (0-9) Eosinophils (%) (Auto) 0% (0-3) Basophils (%) (Auto) 0% (0-3) Neutrophils # (Auto) 7.6x10^3uL (1.8-7.7) Lymphocytes # (Auto) 0.3x10^3/uL (1.0-4.8) Monocytes # (Auto) 0.5x10^3/uL (0.0-1.1) Eosinophils # (Auto) 0.0x10^3/uL (0.0-0.7) Basophils # (Auto) 0.0x10^3/uL (0.0-0.2) Prothrombin Time 20.3SEC (11.7-14.0) Prothromb Time International Ratio 1.9 (0.8-1.1) Sodium Level 141mmol/L (136-145) Potassium Level 2.8mmol/L (3.5-5.1) Chloride Level 108mmol/L (98-107) Carbon Dioxide Level 20mmol/L (21-32) Anion Gap 13 (6-14) Blood Urea Nitrogen 32mg/dL (7-20) Creatinine 1.2mg/dL (0.6-1.0) Estimated GFR (Cockcroft-Gault) 45.5 Glucose Level 217mg/dL (70-99) Lactic Acid Level 1.2mmol/L (0.4-2.0) Calcium Level 5.8mg/dL (8.5-10.1) Phosphorus Level 2.6mg/dL (2.6-4.7) Magnesium Level 1.4mg/dL (1.8-2.4) Albumin 1.7g/dL (3.4-5.0) Test 02/19/17 06:30 02/19/17 07:28 02/19/17 12:50 02/19/17 18:22 White Blood Count 8.2x10^3/uL (4.0-11.0) Red Blood Count 4.40x10^6/uL (3.50-5.40) Hemoglobin 10.4g/dL (12.0-15.5) Hematocrit 33.3% (36.0-47.0) Mean Corpuscular Volume 76fL (79-100) Mean Corpuscular Hemoglobin 24pg (25-35) Mean Corpuscular Hemoglobin Concent 31g/dL (31-37) Red Cell Distribution Width 22.3% (11.5-14.5) Platelet Count 137x10^3/uL (140-400) Neutrophils (%) (Auto) 91% (31-73) Lymphocytes (%) (Auto) 5% (24-48) Monocytes (%) (Auto) 5% (0-9) Eosinophils (%) (Auto) 0% (0-3) Basophils (%) (Auto) 0% (0-3) Neutrophils # (Auto) 7.4x10^3uL (1.8-7.7) Lymphocytes # (Auto) 0.4x10^3/uL (1.0-4.8) Monocytes # (Auto) 0.4x10^3/uL (0.0-1.1) Eosinophils # (Auto) 0.0x10^3/uL (0.0-0.7) Basophils # (Auto) 0.0x10^3/uL (0.0-0.2) Sodium Level 138mmol/L (136-145) Potassium Level 3.9mmol/L (3.5-5.1) Chloride Level 97mmol/L (98-107) Carbon Dioxide Level 26mmol/L (21-32) Anion Gap 15 (6-14) Blood Urea Nitrogen 42mg/dL (7-20) Creatinine 1.7mg/dL (0.6-1.0) Estimated GFR (Cockcroft-Gault) 30.5 Glucose Level 274mg/dL (70-99) Calcium Level 7.6mg/dL (8.5-10.1) Magnesium Level 2.1mg/dL (1.8-2.4) Triglycerides Level 220mg/dL (0-150) Cholesterol Level 84mg/dL (0-200) LDL Cholesterol, Calculated 29mg/dL (0-100) VLDL Cholesterol, Calculated 44mg/dL (0-40) Non-HDL Cholesterol Calculated 73mg/dL (0-129) HDL Cholesterol 11mg/dL (40-60) Cholesterol/HDL Ratio 7.6 Thyroid Stimulating Hormone (TSH) 2.200uIU/mL (0.358-3.74) Random Vancomycin Level 8.3mcg/mL O2 Saturation 95% (92-99) Arterial Blood pH 7.53 (7.35-7.45) Arterial Blood pCO2 at Patient Temp 32mmHg (35-46) Arterial Blood pO2 at Patient Temp 74mmHg (65-108) Arterial Blood HCO3 26mmol/L (21-28) Arterial Blood Base Excess 3mmol/L (-3-3) FiO2 40 Glucose (Fingerstick) 316mg/dL (70-99) 295mg/dL (70-99) Test 02/19/17 20:10 02/20/17 00:00 02/20/17 02:00 02/20/17 05:29 Heparin Anti-Xa Act, Unfractionated 0.32IU/mL (0.30-0.70) 0.40IU/mL (0.30-0.70) Glucose (Fingerstick) 309mg/dL (70-99) 294mg/dL (70-99) Test 02/20/17 05:30 02/20/17 07:30 02/20/17 10:00 02/20/17 13:40 White Blood Count 6.2x10^3/uL (4.0-11.0) Red Blood Count 4.07x10^6/uL (3.50-5.40) Hemoglobin 9.8g/dL (12.0-15.5) Hematocrit 30.3% (36.0-47.0) Mean Corpuscular Volume 74fL (79-100) Mean Corpuscular Hemoglobin 24pg (25-35) Mean Corpuscular Hemoglobin Concent 32g/dL (31-37) Red Cell Distribution Width 22.0% (11.5-14.5) Platelet Count 109x10^3/uL (140-400) Neutrophils (%) (Auto) 89% (31-73) Lymphocytes (%) (Auto) 5% (24-48) Monocytes (%) (Auto) 6% (0-9) Eosinophils (%) (Auto) 0% (0-3) Basophils (%) (Auto) 0% (0-3) Neutrophils # (Auto) 5.5x10^3uL (1.8-7.7) Lymphocytes # (Auto) 0.3x10^3/uL (1.0-4.8) Monocytes # (Auto) 0.4x10^3/uL (0.0-1.1) Eosinophils # (Auto) 0.0x10^3/uL (0.0-0.7) Basophils # (Auto) 0.0x10^3/uL (0.0-0.2) Sodium Level 138mmol/L (136-145) Potassium Level 3.4mmol/L (3.5-5.1) Chloride Level 99mmol/L (98-107) Carbon Dioxide Level 31mmol/L (21-32) Anion Gap 8 (6-14) Blood Urea Nitrogen 49mg/dL (7-20) Creatinine 1.6mg/dL (0.6-1.0) Estimated GFR (Cockcroft-Gault) 32.7 Glucose Level 318mg/dL (70-99) Calcium Level 8.4mg/dL (8.5-10.1) Phosphorus Level 3.1mg/dL (2.6-4.7) Magnesium Level 2.3mg/dL (1.8-2.4) Creatine Kinase 460U/L (26-192) Albumin 3.3g/dL (3.4-5.0) O2 Saturation 96% (92-99) Arterial Blood pH 7.52 (7.35-7.45) Arterial Blood pCO2 at Patient Temp 35mmHg (35-46) Arterial Blood pO2 at Patient Temp 86mmHg (65-108) Arterial Blood HCO3 28mmol/L (21-28) Arterial Blood Base Excess 5mmol/L (-3-3) FiO2 40 Heparin Anti-Xa Act, Unfractionated 0.50IU/mL (0.30-0.70) Glucose (Fingerstick) 301mg/dL (70-99) Test 02/20/17 17:47 Glucose (Fingerstick) 279mg/dL (70-99) Laboratory Tests Test 02/19/17 20:10 02/20/17 00:00 02/20/17 02:00 02/20/17 05:29 Heparin Anti-Xa Act, Unfractionated 0.32IU/mL (0.30-0.70) 0.40IU/mL (0.30-0.70) Glucose (Fingerstick) 309mg/dL (70-99) 294mg/dL (70-99) Test 02/20/17 05:30 02/20/17 07:30 02/20/17 10:00 02/20/17 13:40 White Blood Count 6.2x10^3/uL (4.0-11.0) Red Blood Count 4.07x10^6/uL (3.50-5.40) Hemoglobin 9.8g/dL (12.0-15.5) Hematocrit 30.3% (36.0-47.0) Mean Corpuscular Volume 74fL (79-100) Mean Corpuscular Hemoglobin 24pg (25-35) Mean Corpuscular Hemoglobin Concent 32g/dL (31-37) Red Cell Distribution Width 22.0% (11.5-14.5) Platelet Count 109x10^3/uL (140-400) Neutrophils (%) (Auto) 89% (31-73) Lymphocytes (%) (Auto) 5% (24-48) Monocytes (%) (Auto) 6% (0-9) Eosinophils (%) (Auto) 0% (0-3) Basophils (%) (Auto) 0% (0-3) Neutrophils # (Auto) 5.5x10^3uL (1.8-7.7) Lymphocytes # (Auto) 0.3x10^3/uL (1.0-4.8) Monocytes # (Auto) 0.4x10^3/uL (0.0-1.1) Eosinophils # (Auto) 0.0x10^3/uL (0.0-0.7) Basophils # (Auto) 0.0x10^3/uL (0.0-0.2) Sodium Level 138mmol/L (136-145) Potassium Level 3.4mmol/L (3.5-5.1) Chloride Level 99mmol/L (98-107) Carbon Dioxide Level 31mmol/L (21-32) Anion Gap 8 (6-14) Blood Urea Nitrogen 49mg/dL (7-20) Creatinine 1.6mg/dL (0.6-1.0) Estimated GFR (Cockcroft-Gault) 32.7 Glucose Level 318mg/dL (70-99) Calcium Level 8.4mg/dL (8.5-10.1) Phosphorus Level 3.1mg/dL (2.6-4.7) Magnesium Level 2.3mg/dL (1.8-2.4) Creatine Kinase 460U/L (26-192) Albumin 3.3g/dL (3.4-5.0) O2 Saturation 96% (92-99) Arterial Blood pH 7.52 (7.35-7.45) Arterial Blood pCO2 at Patient Temp 35mmHg (35-46) Arterial Blood pO2 at Patient Temp 86mmHg (65-108) Arterial Blood HCO3 28mmol/L (21-28) Arterial Blood Base Excess 5mmol/L (-3-3) FiO2 40 Heparin Anti-Xa Act, Unfractionated 0.50IU/mL (0.30-0.70) Glucose (Fingerstick) 301mg/dL (70-99) Test 02/20/17 17:47 Glucose (Fingerstick) 279mg/dL (70-99) Medications Active Scripts Medications Dose Route/Sig Days Date Category Requip (Ropinirole Hcl) 1 Mg Tablet 4 Mg PO DAILY 02/14/17 Reported Aspir 81 (Aspirin) 81 Mg Tablet.dr 81 Mg PO DAILY 02/14/17 Reported Wellbutrin Sr (Bupropion Hcl) 150 Mg Tablet.er 150 Mg PO DAILY 02/14/17 Reported Toprol Xl (Metoprolol Succinate) 25 Mg Tab.er.24h 12 Mg PO DAILY 02/14/17 Reported Lasix (Furosemide) 40 Mg Tablet 40 Mg PO DAILY 02/14/17 Reported Pravastatin Sodium 40 Mg Tablet 40 Mg PO DAILY 02/14/17 Reported Pantoprazole Sodium 40 Mg Tablet.dr 40 Mg PO DAILY 02/14/17 Reported Nerinx 7.5-325 Tablet (Acetaminophen/Hydrocodone Bitart) 1 Each Tablet 1 Tab PO PRN Q6HRS PRN 12/06/14 Rx Doxycycline Hyclate 100 Mg Capsule 1 Cap PO BID 12/06/14 Reported Hydrocodone-Apap 5-325 (Hydrocodone Bit/Acetaminophen) 1 Each Tablet 1-2 Tab PO Q4-6HRS PRN 12/06/14 Reported Levothyroxine Sodium 75 Mcg Tablet 1 Tab PO DAILY 12/05/14 Reported Citalopram Hbr (Citalopram Hydrobromide) 20 Mg Tablet 20 Mg PO DAILY 12/05/14 Reported Losartan Potassium 50 Mg Tablet 50 Mg PO DAILY 12/05/14 Reported Metformin Hcl 500 Mg Tablet 1 Tab PO TIDWMEALS 12/05/14 Reported Comments NO CHANGE CXR Impression . 1. Acute respiratory failure secondary to SEPTIC SHOCK 2. SEPTIC SHOCK 3. Acute renal failure 4. 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 Not been on chronic steroids. 5. Marked anion gap metabolic acidosis secondary to septic shock./renal failure 6. non-ST myocardial infarction. 7. Nutrition will start tube feeding 8. Abnormal cxr sec to pulmonary edema/ Pneumonia Plan . NO HD NEEDED FOR NOW WILL TRIAL AGAIN IN AM, DID NOT DO WELL TODAY HR INCREASED B/P INCREASE SPOKE 1. Decrease minute ventilation 2. Broad spectrum antibiotics, per ID 3. pressors off 4. Hemodialysis per nephro 5. Chest x-ray 6. Follow all culture results. 7. hold sedation, for trail 8. The patient's INR is already high and we will hold DVT prophylaxis. 9. Stress ulcer prophylaxis. 10. Hydrocortisone 100 mg IV q. 8 hours. 11. Echo report NOTED CCT 30 mniutes VITO FARRIS MD Feb 20, 2017 19:06
[2017-02-20] MEDS: PROPOFOL 100 ML IV PRN (19:54)
[2017-02-21] VITALS (25 sets, daily range): BP systolic 100–181; BP diastolic 50–103
[2017-02-21] MEDS: METOPROLOL TARTRATE 5 MG/5 ML VIAL. IVP SCH ×4 (00:20→17:25)
[2017-02-21] MEDS: INSULIN ASPART 300 UNITS/3 ML INSULN.PEN SQ SCH ×4 (00:22→17:38)
[2017-02-21] MEDS: HYDROCORTISONE SOD SUCC/PF 100 MG/2 ML VIAL. IV SCH ×3 (05:59→20:59)
[2017-02-21] MEDS: PIPERACILLIN/TAZOBACTAM 2.25 GM in IV NORMAL SALINE 50ML 50 ML IV SCH ×3 (05:59→20:59)
[2017-02-21 06:03] LABS: BASO % 0 % (0-3); EOS % 0 % (0-3); HEMATOCRIT 31.2 % (36.0-47.0); HEMOGLOBIN 10.1 g/dL (12.0-15.5); LYMPH # 0.3 x10^3/uL (1.0-4.8); LYMPH % 4 % (24-48); MEAN CORPUSCULAR HEMOGLOBIN 24 pg (25-35); MEAN CORPUSCULAR HGB CONC 33 g/dL (31-37); MEAN CORPUSCULAR VOLUME 75 fL (79-100); MONO % 6 % (0-9); NEUT % 89 % (31-73); PLATELET COUNT 111 x10^3/uL (140-400); RED BLOOD COUNT 4.16 x10^6/uL (3.50-5.40); RED CELL DISTRIBUTION WIDTH 22.3 % (11.5-14.5); WHITE BLOOD COUNT 6.8 x10^3/uL (4.0-11.0)
[2017-02-21 06:32] LABS: ALBUMIN 3.8 g/dL (3.4-5.0); CALCIUM 8.8 mg/dL (8.5-10.1); CREATININE 1.4 mg/dL (0.6-1.0); GFR 38.1; POTASSIUM 3.8 mmol/L (3.5-5.1)
[2017-02-21] MEDS: PANTOPRAZOLE IV PUSH 40 MG VIAL. IVP SCH (07:48)
[2017-02-21] MEDS: CHLORHEXIDINE 0.12% 15 ML MOUTHWASH. SWSP SCH ×2 (07:48→20:59)
[2017-02-21] MEDS: CITALOPRAM 20 MG TABLET. NG SCH (07:48)
[2017-02-21] MEDS: buPROPion 75 MG TABLET. NG SCH ×2 (07:48→21:00)
[2017-02-21 07:50] LABS: HCO3 ABG 27 mmol/L (21-28); PCO2 ABG 37 mmHg (35-46); PH ABG 7.48 (7.35-7.45); PO2 ABG 91 mmHg (65-108); SAT O2 ABG 97 % (92-99)
[2017-02-21 07:58] LABS: FIO2 ABG 40
[2017-02-21] MEDS: LEVOTHYROXINE SODIUM 37.5 MCG in IV NORMAL SALINE 50ML 5 ML IVP SCH (08:44)
--- NOTE | 2017-02-21 08:58 | PDOC ---
SUBJECTIVE ROS BRADLEY/ ? CKD III remains intubated and sedated on the Vent OBJECTIVE Vital Signs Vital Signs Date Time Temp Pulse Resp B/P Pulse Ox O2 Delivery O2 Flow Rate FiO2 02/21/17 08:33 96 Ventilator 02/21/17 06:00 73 14 105/72 02/21/17 04:00 97.5 97.5 I & 0 Intake and Output 02/21/17 07:00 Intake Total 3420 ml Output Total 1080 ml Balance 2340 ml IV Total 1082 ml Tube Feeding 2268 ml Other 70 ml Output Urine Total 1080 ml PHYSICAL EXAM Physical Exam GEN: SEdated and intubated; In no distress EYES: Sclera anicteric, Conjunctiva Normal EN: No EN Drainage, Mucous Membranes moist NECK: + JVD, + JVP, Supple, no Thyromegaly CVS: S1S2, no Murmur, No Gallop, No Rub,tr Edema RESP: rare Rales, no Rhonchi,no Acc. Muscle Use GI: BS + ve, NO Bruit, Non Tender, Non Distended : no CVA tenderness, no Suprapubic Tenderness DIAGNOSIS/ASSESSMENT BRADLEY/ ATN: resolved ? Underlying CKD III due to DM / HTNsive / NS cannot be ruled out - will f/ upas OP Rhabdo - resolved Low K - replaced per sliding scale Low Mag - replace per sliding scale Resp Failure - on vent - Pulm Fibrosis Edema - min currently. Prn Lasix as needed COMMENT/RELEVANT DATA Meds Current Medications Medications (Trade) Dose Ordered Sig/Janeen Start Time Stop Time Status Last Admin Dose Admin Acetaminophen (Tylenol) 500 mg 1X PRN PRN 02/18/17 08:00 02/19/17 07:59 DC Acetaminophen 650 mg 650 mg PRN Q6HRS PRN 02/17/17 02:00 Albumin Human (Albuminar) 100 ml @ 100 mls/hr TID 02/19/17 09:00 02/20/17 21:59 DC 02/20/17 20:51 100 MLS/HR Bupropion HCl (Wellbutrin) 75 mg BID 02/19/17 12:00 02/21/17 07:48 75 MG Calcium Chloride 2000 mg/Sodium Chloride 120 ml @ 240 mls/hr 1X ONCE 02/19/17 08:00 02/19/17 08:29 DC Chlorhexidine Gluconate (Peridex) 15 ml BID 02/17/17 21:00 02/21/17 07:48 15 ML Citalopram Hydrobromide 20 mg 20 mg DAILY 02/19/17 12:00 02/21/17 07:48 20 MG Clonidine HCl 0.1 mg 0.1 mg 1X PRN PRN 02/18/17 08:00 02/19/17 07:59 DC Dextrose 12.5 gm 12.5 gm PRN Q15MIN PRN 02/18/17 21:00 Diphenhydramine HCl (Benadryl) 25 mg 1X PRN PRN 02/18/17 08:00 02/19/17 07:59 DC Fentanyl Citrate (Fentanyl 2ml Vial) 50 mcg PRN Q2HR PRN 02/17/17 09:00 02/20/17 04:01 50 MCG Heparin Sodium (Porcine) (Heparin Sodium) 2,500 unit 1X ONCE 02/17/17 10:15 02/17/17 10:16 DC Heparin Sodium/ Dextrose 500 ml @ 20 mls/hr CONT PRN 02/19/17 13:15 02/20/17 14:18 20 MLS/HR Heparin Sodium/ Sodium Chloride 60 unit 1X ONCE 02/17/17 10:15 02/17/17 10:16 DC Hydrocortisone Sodium Succinate (Solu-Cortef) 100 mg Q8HRS 02/17/17 14:00 02/21/17 05:59 100 MG Hydrocortisone Sodium Succinate 100 mg 100 mg ONCE ONCE 02/17/17 10:30 02/17/17 10:31 DC 02/17/17 10:36 100 MG Info (PHARMACY MONITORING -- do not chart) 1 each PRN DAILY PRN 02/17/17 12:30 UNV Info 1 each 1 each PRN DAILY PRN 02/20/17 07:45 02/20/17 07:32 1 EACH Insulin Aspart (Novolog) 0-7 UNITS Q6HRS 02/19/17 00:00 02/21/17 06:03 4 UNITS Labetalol HCl (Normodyne) 10 mg PRN Q1HR PRN 02/18/17 08:00 02/19/17 07:59 DC Levothyroxine Sodium/Sodium Chloride (Synthroid/Iv Sodium Chloride 0.9% 50ml) 5 ml @ 100 mls/hr DAILY 02/17/17 09:00 02/21/17 08:44 100 MLS/HR Lidocaine/Sodium Bicarbonate (Buffered Lidocaine 1%) 3 ml 1X ONCE 02/17/17 10:15 02/17/17 10:16 DC Magnesium Sulfate/ Dextrose 50 ml @ 25 mls/hr PRN DAILY PRN 02/19/17 07:45 02/19/17 10:20 DC Magnesium Sulfate/ Dextrose (Magnesium Sulfate PREMIX 2GM) 50 ml @ 25 mls/hr 1X ONCE 02/17/17 09:00 02/17/17 10:59 DC 02/17/17 09:30 25 MLS/HR Metoprolol Tartrate (Lopressor) 2.5 mg Q6HRS 02/20/17 14:00 02/21/17 05:59 2.5 MG Midazolam HCl 100 ml @ 0 mls/hr CONT PRN 02/17/17 02:30 02/17/17 20:34 5 MLS/HR Norepinephrine Bitartrate 250 ml @ 0 mls/hr CONT PRN 02/17/17 06:15 02/18/17 11:15 7.5 MLS/HR Ondansetron HCl (Zofran) 4 mg PRN Q6HRS PRN 02/17/17 02:00 Pantoprazole Sodium (Protonix Vial) 40 mg TID 02/17/17 09:00 02/17/17 13:17 DC 02/17/17 08:56 40 MG Pantoprazole Sodium 40 mg 40 mg DAILY 02/18/17 09:00 02/21/17 07:48 40 MG Piperacillin Sod/ Tazobactam Sod 2.25 gm/Sodium Chloride 50 ml @ 100 mls/hr Q8HRS 02/17/17 08:45 02/21/17 05:59 100 MLS/HR Pneumococcal Polyvalent Vaccine 0.5 ml 0.5 ml ONCE ONCE 02/17/17 09:00 02/17/17 09:01 DC Pneumococcal Polyvalent Vaccine (Do NOT chart on this placeholder) 1 each 1X ONCE 02/17/17 06:00 02/17/17 06:01 UNV Potassium Chloride (KCl Premix 20meq) 50 ml @ 50 mls/hr Q1HR 02/20/17 09:00 02/20/17 10:59 DC 02/20/17 09:48 50 MLS/HR Propofol (Diprivan) 100 ml @ 0 mls/hr CONT PRN 02/18/17 12:45 02/20/17 19:54 6.14 MLS/HR Sodium Bicarbonate 100 meq 100 meq 1X ONCE 02/17/17 09:45 02/17/17 09:48 DC 02/17/17 09:51 100 MEQ Sodium Bicarbonate 150 meq/Dextrose 1,150 ml @ 150 mls/hr Q7H40M 02/17/17 09:45 02/17/17 18:05 DC 02/17/17 10:34 150 MLS/HR Sodium Polystyrene Sulfonate (Kayexalate) 30 gm 1X ONCE 02/17/17 02:45 02/17/17 02:46 DC 02/17/17 03:54 30 GM Sodium Bicarbonate 50 meq STK-MED ONCE 02/17/17 09:42 02/17/17 09:43 DC Sodium Chloride 1,000 ml @ 400 mls/hr Q2H30M PRN 02/18/17 07:47 02/18/17 19:46 DC Sodium Chloride (Iv Sodium Chloride 0.9% 1000ml Bag) 1,000 ml @ 1,000 mls/hr Q1H PRN 02/18/17 07:47 02/18/17 13:46 DC Sodium Chloride (Normal Saline Flush) 10 ml 1X PRN PRN 02/17/17 12:30 02/18/17 12:29 DC Vancomycin HCl 1 each 1X ONCE 02/19/17 10:30 02/19/17 10:30 DC Vancomycin HCl (Vanco Per Pharmacy) 1 each PRN DAILY PRN 02/17/17 10:15 02/18/17 12:50 DC 02/17/17 10:28 1 EACH Vancomycin HCl/ Sodium Chloride (Iv Sodium Chloride 0.9% 500ml Bag) 500 ml @ 250 mls/hr ONCE ONCE 02/17/17 10:30 02/17/17 12:29 DC 02/17/17 13:53 250 MLS/HR Vasopressin 40 unit/Dextrose 102 ml @ 6 mls/hr CONT PRN 02/17/17 10:15 02/18/17 13:53 6 MLS/HR Vasopressin/ Dextrose (Vasostrict) 102 ml @ 6 mls/hr ONCE ONCE 02/17/17 10:00 02/18/17 02:59 DC 02/17/17 10:34 6 MLS/HR Lab Laboratory Tests Test 02/20/17 10:00 02/20/17 13:40 02/20/17 17:47 02/21/17 00:20 Heparin Anti-Xa Act, Unfractionated 0.50IU/mL (0.30-0.70) Glucose (Fingerstick) 301mg/dL (70-99) 279mg/dL (70-99) 318mg/dL (70-99) Test 02/21/17 05:20 02/21/17 05:57 02/21/17 07:00 02/21/17 07:45 White Blood Count 6.8x10^3/uL (4.0-11.0) Red Blood Count 4.16x10^6/uL (3.50-5.40) Hemoglobin 10.1g/dL (12.0-15.5) Hematocrit 31.2% (36.0-47.0) Mean Corpuscular Volume 75fL (79-100) Mean Corpuscular Hemoglobin 24pg (25-35) Mean Corpuscular Hemoglobin Concent 33g/dL (31-37) Red Cell Distribution Width 22.3% (11.5-14.5) Platelet Count 111x10^3/uL (140-400) Neutrophils (%) (Auto) 89% (31-73) Lymphocytes (%) (Auto) 4% (24-48) Monocytes (%) (Auto) 6% (0-9) Eosinophils (%) (Auto) 0% (0-3) Basophils (%) (Auto) 0% (0-3) Neutrophils # (Auto) 6.1x10^3uL (1.8-7.7) Lymphocytes # (Auto) 0.3x10^3/uL (1.0-4.8) Monocytes # (Auto) 0.4x10^3/uL (0.0-1.1) Eosinophils # (Auto) 0.0x10^3/uL (0.0-0.7) Basophils # (Auto) 0.0x10^3/uL (0.0-0.2) Sodium Level 136mmol/L (136-145) Potassium Level 3.8mmol/L (3.5-5.1) Chloride Level 98mmol/L (98-107) Carbon Dioxide Level 29mmol/L (21-32) Anion Gap 9 (6-14) Blood Urea Nitrogen 53mg/dL (7-20) Creatinine 1.4mg/dL (0.6-1.0) Estimated GFR (Cockcroft-Gault) 38.1 Glucose Level 330mg/dL (70-99) Calcium Level 8.8mg/dL (8.5-10.1) Phosphorus Level 3.0mg/dL (2.6-4.7) Magnesium Level 2.3mg/dL (1.8-2.4) Creatine Kinase 280U/L (26-192) Albumin 3.8g/dL (3.4-5.0) Glucose (Fingerstick) 342mg/dL (70-99) Heparin Anti-Xa Act, Unfractionated 0.57IU/mL (0.30-0.70) O2 Saturation 97% (92-99) Arterial Blood pH 7.48 (7.35-7.45) Arterial Blood pCO2 at Patient Temp 37mmHg (35-46) Arterial Blood pO2 at Patient Temp 91mmHg (65-108) Arterial Blood HCO3 27mmol/L (21-28) Arterial Blood Base Excess 4mmol/L (-3-3) FiO2 40 DELLA AMEZQUITA MD Feb 21, 2017 08:58
--- NOTE | 2017-02-21 10:05 | PDOC ---
Infectious Disease Note Subjective Subjective Remains intubated. FiO2 40% Sedated No fever Tube feedings ROS ROS Unobtainable Vital Sign Vital Signs Vital Signs Date Time Temp Pulse Resp B/P Pulse Ox O2 Delivery O2 Flow Rate FiO2 02/21/17 08:33 96 Ventilator 02/21/17 06:00 73 14 105/72 02/21/17 04:00 97.5 97.5 Physical Exam PHYSICAL EXAM GENERAL: Unresponsive HEENT: PERRL, ETT. OGT LUNGS: Clear HEART: S1S2, regular ABD: Soft, BS present : [place] EXT: BLE edema. No cyanosis [employer] CUTTER: Sedated SKIN: No rash RIJ HDC, right radial art-line and left subclavian cath. clean Labs Lab Laboratory Tests Test 02/20/17 10:00 02/20/17 13:40 02/20/17 17:47 02/21/17 00:20 Heparin Anti-Xa Act, Unfractionated 0.50IU/mL (0.30-0.70) Glucose (Fingerstick) 301mg/dL (70-99) 279mg/dL (70-99) 318mg/dL (70-99) Test 02/21/17 05:20 02/21/17 05:57 02/21/17 07:00 02/21/17 07:45 White Blood Count 6.8x10^3/uL (4.0-11.0) Red Blood Count 4.16x10^6/uL (3.50-5.40) Hemoglobin 10.1g/dL (12.0-15.5) Hematocrit 31.2% (36.0-47.0) Mean Corpuscular Volume 75fL (79-100) Mean Corpuscular Hemoglobin 24pg (25-35) Mean Corpuscular Hemoglobin Concent 33g/dL (31-37) Red Cell Distribution Width 22.3% (11.5-14.5) Platelet Count 111x10^3/uL (140-400) Neutrophils (%) (Auto) 89% (31-73) Lymphocytes (%) (Auto) 4% (24-48) Monocytes (%) (Auto) 6% (0-9) Eosinophils (%) (Auto) 0% (0-3) Basophils (%) (Auto) 0% (0-3) Neutrophils # (Auto) 6.1x10^3uL (1.8-7.7) Lymphocytes # (Auto) 0.3x10^3/uL (1.0-4.8) Monocytes # (Auto) 0.4x10^3/uL (0.0-1.1) Eosinophils # (Auto) 0.0x10^3/uL (0.0-0.7) Basophils # (Auto) 0.0x10^3/uL (0.0-0.2) Sodium Level 136mmol/L (136-145) Potassium Level 3.8mmol/L (3.5-5.1) Chloride Level 98mmol/L (98-107) Carbon Dioxide Level 29mmol/L (21-32) Anion Gap 9 (6-14) Blood Urea Nitrogen 53mg/dL (7-20) Creatinine 1.4mg/dL (0.6-1.0) Estimated GFR (Cockcroft-Gault) 38.1 Glucose Level 330mg/dL (70-99) Calcium Level 8.8mg/dL (8.5-10.1) Phosphorus Level 3.0mg/dL (2.6-4.7) Magnesium Level 2.3mg/dL (1.8-2.4) Creatine Kinase 280U/L (26-192) Albumin 3.8g/dL (3.4-5.0) Glucose (Fingerstick) 342mg/dL (70-99) Heparin Anti-Xa Act, Unfractionated 0.57IU/mL (0.30-0.70) O2 Saturation 97% (92-99) Arterial Blood pH 7.48 (7.35-7.45) Arterial Blood pCO2 at Patient Temp 37mmHg (35-46) Arterial Blood pO2 at Patient Temp 91mmHg (65-108) Arterial Blood HCO3 27mmol/L (21-28) Arterial Blood Base Excess 4mmol/L (-3-3) FiO2 40 Portable chest, 02/20/2017: History: Respiratory failure, increased pressures Comparison is made to a study from 02/18/2017. The ET tube tip lies well above the sonia. A left subclavian central venous catheter extends into the superior vena cava. A right jugular dialysis type catheter extends into the mid right atrium. An NG tube extends into the stomach. The heart remains at the upper limits of normal in size. Reticulonodular pulmonary opacities are unchanged. No new pulmonary abnormality is seen. There is no evidence of pleural fluid or pneumothorax. Objective Assessment ? sepsis vs SIRS. Received Solu-Medrol in [facility]. On Solu-Cortef. Off pressors NSTEMI Ecoli in urine 02/17 ? colonization - Res to Pip but she is responding so likely sens to Zosyn Hyperglycemia ? Aspiration - intubated- h/o Pulm fibrosis Lactic acidosis - improved BRADLEY - dehydration. Getting HD Transaminitis H/o elevated CORA DM and gastroparesis Plan Plan of Care Continue Zosyn Monitor labs Supportive May need further eval for ? autoimmune given elevated CORA 1:640 with homogenous patten in Nov 2014 but now on hydrocortisone Critically ill Attending Co-Sign The patient was seen and interviewed as well as examined at the bedside. The chart was reviewed. The case was discussed. Agree with the plan of care. ALLYN WARD APRN Feb 21, 2017 10:05 ELIAS AMEZQUITA MD Feb 21, 2017 14:30
--- NOTE | 2017-02-21 10:24 | PDOC ---
Objective: Objective: Per RN - tube feeds at goal. Vital Signs: Vital Signs Date Time Temp Pulse Resp B/P Pulse Ox O2 Delivery O2 Flow Rate FiO2 02/21/17 08:33 96 Ventilator 02/21/17 06:00 73 14 105/72 02/21/17 04:00 97.5 97.5 Labs: Laboratory Tests Test 02/20/17 13:40 02/20/17 17:47 02/21/17 00:20 02/21/17 05:20 Glucose (Fingerstick) 301mg/dL 279mg/dL 318mg/dL White Blood Count 6.8x10^3/uL Red Blood Count 4.16x10^6/uL Hemoglobin 10.1g/dL Hematocrit 31.2% Mean Corpuscular Volume 75fL Mean Corpuscular Hemoglobin 24pg Mean Corpuscular Hemoglobin Concent 33g/dL Red Cell Distribution Width 22.3% Platelet Count 111x10^3/uL Neutrophils (%) (Auto) 89% Lymphocytes (%) (Auto) 4% Monocytes (%) (Auto) 6% Eosinophils (%) (Auto) 0% Basophils (%) (Auto) 0% Neutrophils # (Auto) 6.1x10^3uL Lymphocytes # (Auto) 0.3x10^3/uL Monocytes # (Auto) 0.4x10^3/uL Eosinophils # (Auto) 0.0x10^3/uL Basophils # (Auto) 0.0x10^3/uL Sodium Level 136mmol/L Potassium Level 3.8mmol/L Chloride Level 98mmol/L Carbon Dioxide Level 29mmol/L Anion Gap 9 Blood Urea Nitrogen 53mg/dL Creatinine 1.4mg/dL Estimated GFR (Cockcroft-Gault) 38.1 Glucose Level 330mg/dL Calcium Level 8.8mg/dL Phosphorus Level 3.0mg/dL Magnesium Level 2.3mg/dL Creatine Kinase 280U/L Albumin 3.8g/dL Test 02/21/17 05:57 02/21/17 07:00 02/21/17 07:45 Glucose (Fingerstick) 342mg/dL Heparin Anti-Xa Act, Unfractionated 0.57IU/mL O2 Saturation 97% Arterial Blood pH 7.48 Arterial Blood pCO2 at Patient Temp 37mmHg Arterial Blood pO2 at Patient Temp 91mmHg Arterial Blood HCO3 27mmol/L Arterial Blood Base Excess 4mmol/L FiO2 40 PE: GEN: intubated, OG LUNGS: vent HEART: RRR ABD: BS quiet, soft NEURO/PSYCH: sedated A/P: NSTEMI, resp failure, BRADLEY/CKD Gastroparesis -EGD and colonoscopy 02/14/17: chronic gastritis, hiatal hernia, sigmoid diverticulum, internal hemorrhoids -on IV PPI, previous adverse reaction to Reglan, h/o DM -OG feeds at goal -- Improved GI-starkey. JF CENTENO Feb 21, 2017 10:23
[2017-02-21 11:50] LABS: HCO3 ABG 25 mmol/L (21-28); PCO2 ABG 39 mmHg (35-46); PH ABG 7.43 (7.35-7.45); PO2 ABG 71 mmHg (65-108); SAT O2 ABG 93 % (92-99)
[2017-02-21 11:54] LABS: FIO2 ABG 40
[2017-02-21] MEDS: IPRATRPIUM/ALBUTEROL 0.5/2.5MG 3 ML NEBU. NEB SCH ×3 (12:00→19:54)
--- NOTE | 2017-02-21 13:20 | PDOC ---
PULMONARY PROGRESS NOTES Subjective PT SEDATED Vitals Vital Signs Date Time Temp Pulse Resp B/P Pulse Ox O2 Delivery O2 Flow Rate FiO2 02/21/17 12:20 Mechanical Ventilator 02/21/17 12:16 98.9 82 16 132/82 96 98.9 Lungs: Clear, Other (No chest retractions were present.) Cardiovascular: S1, S2 Abdomen: Soft Extremities: No Edema Skin: Warm Labs Laboratory Tests Test 02/19/17 18:22 02/19/17 20:10 02/20/17 00:00 02/20/17 02:00 Glucose (Fingerstick) 295mg/dL (70-99) 309mg/dL (70-99) Heparin Anti-Xa Act, Unfractionated 0.32IU/mL (0.30-0.70) 0.40IU/mL (0.30-0.70) Test 02/20/17 05:29 02/20/17 05:30 02/20/17 07:30 02/20/17 10:00 Glucose (Fingerstick) 294mg/dL (70-99) White Blood Count 6.2x10^3/uL (4.0-11.0) Red Blood Count 4.07x10^6/uL (3.50-5.40) Hemoglobin 9.8g/dL (12.0-15.5) Hematocrit 30.3% (36.0-47.0) Mean Corpuscular Volume 74fL (79-100) Mean Corpuscular Hemoglobin 24pg (25-35) Mean Corpuscular Hemoglobin Concent 32g/dL (31-37) Red Cell Distribution Width 22.0% (11.5-14.5) Platelet Count 109x10^3/uL (140-400) Neutrophils (%) (Auto) 89% (31-73) Lymphocytes (%) (Auto) 5% (24-48) Monocytes (%) (Auto) 6% (0-9) Eosinophils (%) (Auto) 0% (0-3) Basophils (%) (Auto) 0% (0-3) Neutrophils # (Auto) 5.5x10^3uL (1.8-7.7) Lymphocytes # (Auto) 0.3x10^3/uL (1.0-4.8) Monocytes # (Auto) 0.4x10^3/uL (0.0-1.1) Eosinophils # (Auto) 0.0x10^3/uL (0.0-0.7) Basophils # (Auto) 0.0x10^3/uL (0.0-0.2) Sodium Level 138mmol/L (136-145) Potassium Level 3.4mmol/L (3.5-5.1) Chloride Level 99mmol/L (98-107) Carbon Dioxide Level 31mmol/L (21-32) Anion Gap 8 (6-14) Blood Urea Nitrogen 49mg/dL (7-20) Creatinine 1.6mg/dL (0.6-1.0) Estimated GFR (Cockcroft-Gault) 32.7 Glucose Level 318mg/dL (70-99) Calcium Level 8.4mg/dL (8.5-10.1) Phosphorus Level 3.1mg/dL (2.6-4.7) Magnesium Level 2.3mg/dL (1.8-2.4) Creatine Kinase 460U/L (26-192) Albumin 3.3g/dL (3.4-5.0) O2 Saturation 96% (92-99) Arterial Blood pH 7.52 (7.35-7.45) Arterial Blood pCO2 at Patient Temp 35mmHg (35-46) Arterial Blood pO2 at Patient Temp 86mmHg (65-108) Arterial Blood HCO3 28mmol/L (21-28) Arterial Blood Base Excess 5mmol/L (-3-3) FiO2 40 Heparin Anti-Xa Act, Unfractionated 0.50IU/mL (0.30-0.70) Test 02/20/17 13:40 02/20/17 17:47 02/21/17 00:20 02/21/17 05:20 Glucose (Fingerstick) 301mg/dL (70-99) 279mg/dL (70-99) 318mg/dL (70-99) White Blood Count 6.8x10^3/uL (4.0-11.0) Red Blood Count 4.16x10^6/uL (3.50-5.40) Hemoglobin 10.1g/dL (12.0-15.5) Hematocrit 31.2% (36.0-47.0) Mean Corpuscular Volume 75fL (79-100) Mean Corpuscular Hemoglobin 24pg (25-35) Mean Corpuscular Hemoglobin Concent 33g/dL (31-37) Red Cell Distribution Width 22.3% (11.5-14.5) Platelet Count 111x10^3/uL (140-400) Neutrophils (%) (Auto) 89% (31-73) Lymphocytes (%) (Auto) 4% (24-48) Monocytes (%) (Auto) 6% (0-9) Eosinophils (%) (Auto) 0% (0-3) Basophils (%) (Auto) 0% (0-3) Neutrophils # (Auto) 6.1x10^3uL (1.8-7.7) Lymphocytes # (Auto) 0.3x10^3/uL (1.0-4.8) Monocytes # (Auto) 0.4x10^3/uL (0.0-1.1) Eosinophils # (Auto) 0.0x10^3/uL (0.0-0.7) Basophils # (Auto) 0.0x10^3/uL (0.0-0.2) Sodium Level 136mmol/L (136-145) Potassium Level 3.8mmol/L (3.5-5.1) Chloride Level 98mmol/L (98-107) Carbon Dioxide Level 29mmol/L (21-32) Anion Gap 9 (6-14) Blood Urea Nitrogen 53mg/dL (7-20) Creatinine 1.4mg/dL (0.6-1.0) Estimated GFR (Cockcroft-Gault) 38.1 Glucose Level 330mg/dL (70-99) Calcium Level 8.8mg/dL (8.5-10.1) Phosphorus Level 3.0mg/dL (2.6-4.7) Magnesium Level 2.3mg/dL (1.8-2.4) Creatine Kinase 280U/L (26-192) Albumin 3.8g/dL (3.4-5.0) Test 02/21/17 05:57 02/21/17 07:00 02/21/17 07:45 02/21/17 11:39 Glucose (Fingerstick) 342mg/dL (70-99) 354mg/dL (70-99) Heparin Anti-Xa Act, Unfractionated 0.57IU/mL (0.30-0.70) O2 Saturation 97% (92-99) Arterial Blood pH 7.48 (7.35-7.45) Arterial Blood pCO2 at Patient Temp 37mmHg (35-46) Arterial Blood pO2 at Patient Temp 91mmHg (65-108) Arterial Blood HCO3 27mmol/L (21-28) Arterial Blood Base Excess 4mmol/L (-3-3) FiO2 40 Test 02/21/17 11:40 O2 Saturation 93% (92-99) Arterial Blood pH 7.43 (7.35-7.45) Arterial Blood pCO2 at Patient Temp 39mmHg (35-46) Arterial Blood pO2 at Patient Temp 71mmHg (65-108) Arterial Blood HCO3 25mmol/L (21-28) Arterial Blood Base Excess 1mmol/L (-3-3) FiO2 40 Laboratory Tests Test 02/20/17 13:40 02/20/17 17:47 02/21/17 00:20 02/21/17 05:20 Glucose (Fingerstick) 301mg/dL (70-99) 279mg/dL (70-99) 318mg/dL (70-99) White Blood Count 6.8x10^3/uL (4.0-11.0) Red Blood Count 4.16x10^6/uL (3.50-5.40) Hemoglobin 10.1g/dL (12.0-15.5) Hematocrit 31.2% (36.0-47.0) Mean Corpuscular Volume 75fL (79-100) Mean Corpuscular Hemoglobin 24pg (25-35) Mean Corpuscular Hemoglobin Concent 33g/dL (31-37) Red Cell Distribution Width 22.3% (11.5-14.5) Platelet Count 111x10^3/uL (140-400) Neutrophils (%) (Auto) 89% (31-73) Lymphocytes (%) (Auto) 4% (24-48) Monocytes (%) (Auto) 6% (0-9) Eosinophils (%) (Auto) 0% (0-3) Basophils (%) (Auto) 0% (0-3) Neutrophils # (Auto) 6.1x10^3uL (1.8-7.7) Lymphocytes # (Auto) 0.3x10^3/uL (1.0-4.8) Monocytes # (Auto) 0.4x10^3/uL (0.0-1.1) Eosinophils # (Auto) 0.0x10^3/uL (0.0-0.7) Basophils # (Auto) 0.0x10^3/uL (0.0-0.2) Sodium Level 136mmol/L (136-145) Potassium Level 3.8mmol/L (3.5-5.1) Chloride Level 98mmol/L (98-107) Carbon Dioxide Level 29mmol/L (21-32) Anion Gap 9 (6-14) Blood Urea Nitrogen 53mg/dL (7-20) Creatinine 1.4mg/dL (0.6-1.0) Estimated GFR (Cockcroft-Gault) 38.1 Glucose Level 330mg/dL (70-99) Calcium Level 8.8mg/dL (8.5-10.1) Phosphorus Level 3.0mg/dL (2.6-4.7) Magnesium Level 2.3mg/dL (1.8-2.4) Creatine Kinase 280U/L (26-192) Albumin 3.8g/dL (3.4-5.0) Test 02/21/17 05:57 02/21/17 07:00 02/21/17 07:45 02/21/17 11:39 Glucose (Fingerstick) 342mg/dL (70-99) 354mg/dL (70-99) Heparin Anti-Xa Act, Unfractionated 0.57IU/mL (0.30-0.70) O2 Saturation 97% (92-99) Arterial Blood pH 7.48 (7.35-7.45) Arterial Blood pCO2 at Patient Temp 37mmHg (35-46) Arterial Blood pO2 at Patient Temp 91mmHg (65-108) Arterial Blood HCO3 27mmol/L (21-28) Arterial Blood Base Excess 4mmol/L (-3-3) FiO2 40 Test 02/21/17 11:40 O2 Saturation 93% (92-99) Arterial Blood pH 7.43 (7.35-7.45) Arterial Blood pCO2 at Patient Temp 39mmHg (35-46) Arterial Blood pO2 at Patient Temp 71mmHg (65-108) Arterial Blood HCO3 25mmol/L (21-28) Arterial Blood Base Excess 1mmol/L (-3-3) FiO2 40 Medications Active Scripts Medications Dose Route/Sig Days Date Category Requip (Ropinirole Hcl) 1 Mg Tablet 4 Mg PO DAILY 02/14/17 Reported Aspir 81 (Aspirin) 81 Mg Tablet.dr 81 Mg PO DAILY 02/14/17 Reported Wellbutrin Sr (Bupropion Hcl) 150 Mg Tablet.er 150 Mg PO DAILY 02/14/17 Reported Toprol Xl (Metoprolol Succinate) 25 Mg Tab.er.24h 12 Mg PO DAILY 02/14/17 Reported Lasix (Furosemide) 40 Mg Tablet 40 Mg PO DAILY 02/14/17 Reported Pravastatin Sodium 40 Mg Tablet 40 Mg PO DAILY 02/14/17 Reported Pantoprazole Sodium 40 Mg Tablet.dr 40 Mg PO DAILY 02/14/17 Reported Bangs 7.5-325 Tablet (Acetaminophen/Hydrocodone Bitart) 1 Each Tablet 1 Tab PO PRN Q6HRS PRN 12/06/14 Rx Doxycycline Hyclate 100 Mg Capsule 1 Cap PO BID 12/06/14 Reported Hydrocodone-Apap 5-325 (Hydrocodone Bit/Acetaminophen) 1 Each Tablet 1-2 Tab PO Q4-6HRS PRN 12/06/14 Reported Levothyroxine Sodium 75 Mcg Tablet 1 Tab PO DAILY 12/05/14 Reported Citalopram Hbr (Citalopram Hydrobromide) 20 Mg Tablet 20 Mg PO DAILY 12/05/14 Reported Losartan Potassium 50 Mg Tablet 50 Mg PO DAILY 12/05/14 Reported Metformin Hcl 500 Mg Tablet 1 Tab PO TIDWMEALS 12/05/14 Reported Impression . 1. Acute respiratory failure secondary to SEPTIC SHOCK 2. SEPTIC SHOCK 3. Acute renal failure 4. 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 Not been on chronic steroids. 5. Marked anion gap metabolic acidosis secondary to septic shock./renal failure 6. non-ST myocardial infarction. 7. Nutrition will start tube feeding 8. Abnormal cxr sec to pulmonary edema/ Pneumonia Plan . SPOKE WITH RN WILL HOLD SEDATION AND TRIAL SPOKE WITH DR AMEZQUITA NO HD NEEDED FOR NOW 1. Decrease minute ventilation 2. Broad spectrum antibiotics, per ID 3. pressors off 4. Hemodialysis per nephro 5. Chest x-ray 6. Follow all culture results. 7. hold sedation, for trail 8. The patient's INR is already high and we will hold DVT prophylaxis. 9. Stress ulcer prophylaxis. 10. Hydrocortisone 100 mg IV q. 8 hours. 11. Echo report NOTED CCT [id number] VITO FARRIS MD Feb 21, 2017 13:20
--- NOTE | 2017-02-21 14:05 | PDOC ---
CARDIO Progress Notes Date and Time Date of Service 02/21/17 Time of Evaluation 1220 Subjective Subjective: No Chest Pain, No shortness of breath, Other (intubated. sedated) Vitals Vitals Vital Signs Date Time Temp Pulse Resp B/P Pulse Ox O2 Delivery O2 Flow Rate FiO2 02/21/17 13:20 82 15 135/86 97 Ventilator 02/21/17 12:16 98.9 98.9 Weight Weight [ ] Input and Output Intake and Output Intake and Output 02/21/17 07:00 Intake Total 3420 ml Output Total 1080 ml Balance 2340 ml IV Total 1082 ml Tube Feeding 2268 ml Other 70 ml Output Urine Total 1080 ml Laboratory Labs Laboratory Tests Test 02/20/17 17:47 02/21/17 00:20 02/21/17 05:20 02/21/17 05:57 Glucose (Fingerstick) 279mg/dL (70-99) 318mg/dL (70-99) 342mg/dL (70-99) White Blood Count 6.8x10^3/uL (4.0-11.0) Red Blood Count 4.16x10^6/uL (3.50-5.40) Hemoglobin 10.1g/dL (12.0-15.5) Hematocrit 31.2% (36.0-47.0) Mean Corpuscular Volume 75fL (79-100) Mean Corpuscular Hemoglobin 24pg (25-35) Mean Corpuscular Hemoglobin Concent 33g/dL (31-37) Red Cell Distribution Width 22.3% (11.5-14.5) Platelet Count 111x10^3/uL (140-400) Neutrophils (%) (Auto) 89% (31-73) Lymphocytes (%) (Auto) 4% (24-48) Monocytes (%) (Auto) 6% (0-9) Eosinophils (%) (Auto) 0% (0-3) Basophils (%) (Auto) 0% (0-3) Neutrophils # (Auto) 6.1x10^3uL (1.8-7.7) Lymphocytes # (Auto) 0.3x10^3/uL (1.0-4.8) Monocytes # (Auto) 0.4x10^3/uL (0.0-1.1) Eosinophils # (Auto) 0.0x10^3/uL (0.0-0.7) Basophils # (Auto) 0.0x10^3/uL (0.0-0.2) Sodium Level 136mmol/L (136-145) Potassium Level 3.8mmol/L (3.5-5.1) Chloride Level 98mmol/L (98-107) Carbon Dioxide Level 29mmol/L (21-32) Anion Gap 9 (6-14) Blood Urea Nitrogen 53mg/dL (7-20) Creatinine 1.4mg/dL (0.6-1.0) Estimated GFR (Cockcroft-Gault) 38.1 Glucose Level 330mg/dL (70-99) Calcium Level 8.8mg/dL (8.5-10.1) Phosphorus Level 3.0mg/dL (2.6-4.7) Magnesium Level 2.3mg/dL (1.8-2.4) Creatine Kinase 280U/L (26-192) Albumin 3.8g/dL (3.4-5.0) Test 02/21/17 07:00 02/21/17 07:45 02/21/17 11:39 02/21/17 11:40 Heparin Anti-Xa Act, Unfractionated 0.57IU/mL (0.30-0.70) O2 Saturation 97% (92-99) 93% (92-99) Arterial Blood pH 7.48 (7.35-7.45) 7.43 (7.35-7.45) Arterial Blood pCO2 at Patient Temp 37mmHg (35-46) 39mmHg (35-46) Arterial Blood pO2 at Patient Temp 91mmHg (65-108) 71mmHg (65-108) Arterial Blood HCO3 27mmol/L (21-28) 25mmol/L (21-28) Arterial Blood Base Excess 4mmol/L (-3-3) 1mmol/L (-3-3) FiO2 40 40 Glucose (Fingerstick) 354mg/dL (70-99) Microbiology Micro Microbiology 02/18/17 Urine Culture - Final, Complete 02/18/17 Urine Culture Result 1 (NORBERTO) - Final, Complete Physical Exam HEENT: Neck Supple W Full Motion Chest: Symmetric LUNGS: Other (mechanical ventilation) Heart: S1S2, RRR (Sinus tach), other (distant heart tones ) Abdomen: Soft N/T Extremities: Other (trace to 1+ bilateral LE pitting edema) Neurology: other (on sedation) Assessment Assessment 1. Multiorgan failure with sepsis: off pressors 2. NSTEMI: troponin peak at 31. Current EF 55-60% 3. CAD: at [facility]- CABG 04/30/16 with MCCLAIN to the LAD, FIGUEROA T graft to the circumflex obtuse marginal, and left radial artery to the PDA. At the time of C, LVEF 55-60%. 4. Acute on chronic respiratory failure: s/p intubation 5. Transaminitis; 2/2 shock- notable for thrombocytopenia 6. BRADLEY/ATN with CKD: temporary HD 7. Diabetes 8. Hypothyroidism Recommendations 1. Probable cardiac cath, 2.2 NSTEMI, when other acute issues resolve 2. Continue with heparin drip; monitor labs closely 3. Continue BB. No REINIER/ARB with BRADLEY 4. Ventilator management/weaning per pulmonary 5. Antibiotic therapy per ID 6. continue supportive care from a CV perspective. AVELINO OSBORNE APRN Feb 21, 2017 14:04
[2017-02-21] MEDS: ANTI-COAG MONITOR BY PHARMACY. MC PRN (16:11)
[2017-02-21] MEDS: HEPARIN 25,000UTS/500ML PREMIX 500 ML IV PRN (17:26)
[2017-02-21] MEDS: PROPOFOL 100 ML IV PRN (17:30)
[2017-02-21] MEDS: fentaNYL PF VIAL 100 MCG/2 ML VIAL IV PRN (21:00)
[2017-02-21] MEDS ORDERED: INSULIN DETEMIR 300 UNITS/3 ML INSULN.PEN. SQ SCH (21:00)
--- NOTE | 2017-02-21 23:18 | PDOC ---
PROGRESS NOTES Chief Complaint Chief Complaint cc: Respiratory failure -Acute renal failure -NSTEMI -CAD -Septic shock -CABG -HLD -HTN -Tonsillectomy -Pulmonary fibrosis -FREDY -Obesity -Constipation -GERD -Breast excision -Tubal ligation -DM -Hypothyroidism -Anxiety -Smoking -Hepatitis A History of Present Illness History of Present Illness Ms. Betancourt was in bed and on Spont respirations with 14 PS. Still less responsive., She remained motionless. She had a mitten on her left hand and a brace on her right. DW RN Might have a cath next week Vitals Vitals Vital Signs Date Time Temp Pulse Resp B/P Pulse Ox O2 Delivery O2 Flow Rate FiO2 02/21/17 23:00 68 16 120/61 97 Ventilator 02/21/17 20:00 98.6 98.6 Physical Exam General: No acute distress, Other (This patient was on a ventilator.) Heart: Normal S1, Normal S2, No murmurs Lungs: Clear, Other (No chest retractions were present.) Abdomen: Soft, No hepatosplenomegaly Extremities: No clubbing, Normal pulses Skin: No breakdown, No significant lesion Labs LABS Laboratory Tests Test 02/21/17 00:20 02/21/17 05:20 02/21/17 05:57 02/21/17 07:00 Glucose (Fingerstick) 318mg/dL (70-99) 342mg/dL (70-99) White Blood Count 6.8x10^3/uL (4.0-11.0) Red Blood Count 4.16x10^6/uL (3.50-5.40) Hemoglobin 10.1g/dL (12.0-15.5) Hematocrit 31.2% (36.0-47.0) Mean Corpuscular Volume 75fL (79-100) Mean Corpuscular Hemoglobin 24pg (25-35) Mean Corpuscular Hemoglobin Concent 33g/dL (31-37) Red Cell Distribution Width 22.3% (11.5-14.5) Platelet Count 111x10^3/uL (140-400) Neutrophils (%) (Auto) 89% (31-73) Lymphocytes (%) (Auto) 4% (24-48) Monocytes (%) (Auto) 6% (0-9) Eosinophils (%) (Auto) 0% (0-3) Basophils (%) (Auto) 0% (0-3) Neutrophils # (Auto) 6.1x10^3uL (1.8-7.7) Lymphocytes # (Auto) 0.3x10^3/uL (1.0-4.8) Monocytes # (Auto) 0.4x10^3/uL (0.0-1.1) Eosinophils # (Auto) 0.0x10^3/uL (0.0-0.7) Basophils # (Auto) 0.0x10^3/uL (0.0-0.2) Sodium Level 136mmol/L (136-145) Potassium Level 3.8mmol/L (3.5-5.1) Chloride Level 98mmol/L (98-107) Carbon Dioxide Level 29mmol/L (21-32) Anion Gap 9 (6-14) Blood Urea Nitrogen 53mg/dL (7-20) Creatinine 1.4mg/dL (0.6-1.0) Estimated GFR (Cockcroft-Gault) 38.1 Glucose Level 330mg/dL (70-99) Calcium Level 8.8mg/dL (8.5-10.1) Phosphorus Level 3.0mg/dL (2.6-4.7) Magnesium Level 2.3mg/dL (1.8-2.4) Creatine Kinase 280U/L (26-192) Albumin 3.8g/dL (3.4-5.0) Heparin Anti-Xa Act, Unfractionated 0.57IU/mL (0.30-0.70) Test 02/21/17 07:45 02/21/17 11:39 02/21/17 11:40 02/21/17 17:36 O2 Saturation 97% (92-99) 93% (92-99) Arterial Blood pH 7.48 (7.35-7.45) 7.43 (7.35-7.45) Arterial Blood pCO2 at Patient Temp 37mmHg (35-46) 39mmHg (35-46) Arterial Blood pO2 at Patient Temp 91mmHg (65-108) 71mmHg (65-108) Arterial Blood HCO3 27mmol/L (21-28) 25mmol/L (21-28) Arterial Blood Base Excess 4mmol/L (-3-3) 1mmol/L (-3-3) FiO2 40 40 Glucose (Fingerstick) 354mg/dL (70-99) 342mg/dL (70-99) Test 02/21/17 21:02 Glucose (Fingerstick) 277mg/dL (70-99) Review of Systems Review of Systems unobtainable Assessment and Plan Assessmemt and Plan Problems Medical Problems: (1) ARF (acute renal failure) Status: Acute (2) Cardiac failure Status: Acute (3) Hypoxia Status: Acute (4) Respiratory failure Status: Acute cc: Respiratory failure -Acute renal failure -NSTEMI -CAD -Septic shock -CABG -HLD -HTN -Tonsillectomy -Pulmonary fibrosis -FREDY -Obesity -Constipation -GERD -Breast excision -Tubal ligation -DM -Hypothyroidism -Anxiety -Smoking -Hepatitis A Plan ICU monitoring Hope to fully extubate soon? Possible cath next week? Nebs Antibx Pulm, Cards, ID, GI, Neph following Prognosis guarded Problems: Comment Review of Relevant I have reviewed the following items trey (where applicable) has been applied. Labs Laboratory Tests Test 02/20/17 00:00 02/20/17 02:00 02/20/17 05:29 02/20/17 05:30 Glucose (Fingerstick) 309mg/dL (70-99) 294mg/dL (70-99) Heparin Anti-Xa Act, Unfractionated 0.40IU/mL (0.30-0.70) White Blood Count 6.2x10^3/uL (4.0-11.0) Red Blood Count 4.07x10^6/uL (3.50-5.40) Hemoglobin 9.8g/dL (12.0-15.5) Hematocrit 30.3% (36.0-47.0) Mean Corpuscular Volume 74fL (79-100) Mean Corpuscular Hemoglobin 24pg (25-35) Mean Corpuscular Hemoglobin Concent 32g/dL (31-37) Red Cell Distribution Width 22.0% (11.5-14.5) Platelet Count 109x10^3/uL (140-400) Neutrophils (%) (Auto) 89% (31-73) Lymphocytes (%) (Auto) 5% (24-48) Monocytes (%) (Auto) 6% (0-9) Eosinophils (%) (Auto) 0% (0-3) Basophils (%) (Auto) 0% (0-3) Neutrophils # (Auto) 5.5x10^3uL (1.8-7.7) Lymphocytes # (Auto) 0.3x10^3/uL (1.0-4.8) Monocytes # (Auto) 0.4x10^3/uL (0.0-1.1) Eosinophils # (Auto) 0.0x10^3/uL (0.0-0.7) Basophils # (Auto) 0.0x10^3/uL (0.0-0.2) Sodium Level 138mmol/L (136-145) Potassium Level 3.4mmol/L (3.5-5.1) Chloride Level 99mmol/L (98-107) Carbon Dioxide Level 31mmol/L (21-32) Anion Gap 8 (6-14) Blood Urea Nitrogen 49mg/dL (7-20) Creatinine 1.6mg/dL (0.6-1.0) Estimated GFR (Cockcroft-Gault) 32.7 Glucose Level 318mg/dL (70-99) Calcium Level 8.4mg/dL (8.5-10.1) Phosphorus Level 3.1mg/dL (2.6-4.7) Magnesium Level 2.3mg/dL (1.8-2.4) Creatine Kinase 460U/L (26-192) Albumin 3.3g/dL (3.4-5.0) Test 02/20/17 07:30 02/20/17 10:00 02/20/17 13:40 02/20/17 17:47 O2 Saturation 96% (92-99) Arterial Blood pH 7.52 (7.35-7.45) Arterial Blood pCO2 at Patient Temp 35mmHg (35-46) Arterial Blood pO2 at Patient Temp 86mmHg (65-108) Arterial Blood HCO3 28mmol/L (21-28) Arterial Blood Base Excess 5mmol/L (-3-3) FiO2 40 Heparin Anti-Xa Act, Unfractionated 0.50IU/mL (0.30-0.70) Glucose (Fingerstick) 301mg/dL (70-99) 279mg/dL (70-99) Test 02/21/17 00:20 02/21/17 05:20 02/21/17 05:57 02/21/17 07:00 Glucose (Fingerstick) 318mg/dL (70-99) 342mg/dL (70-99) White Blood Count 6.8x10^3/uL (4.0-11.0) Red Blood Count 4.16x10^6/uL (3.50-5.40) Hemoglobin 10.1g/dL (12.0-15.5) Hematocrit 31.2% (36.0-47.0) Mean Corpuscular Volume 75fL (79-100) Mean Corpuscular Hemoglobin 24pg (25-35) Mean Corpuscular Hemoglobin Concent 33g/dL (31-37) Red Cell Distribution Width 22.3% (11.5-14.5) Platelet Count 111x10^3/uL (140-400) Neutrophils (%) (Auto) 89% (31-73) Lymphocytes (%) (Auto) 4% (24-48) Monocytes (%) (Auto) 6% (0-9) Eosinophils (%) (Auto) 0% (0-3) Basophils (%) (Auto) 0% (0-3) Neutrophils # (Auto) 6.1x10^3uL (1.8-7.7) Lymphocytes # (Auto) 0.3x10^3/uL (1.0-4.8) Monocytes # (Auto) 0.4x10^3/uL (0.0-1.1) Eosinophils # (Auto) 0.0x10^3/uL (0.0-0.7) Basophils # (Auto) 0.0x10^3/uL (0.0-0.2) Sodium Level 136mmol/L (136-145) Potassium Level 3.8mmol/L (3.5-5.1) Chloride Level 98mmol/L (98-107) Carbon Dioxide Level 29mmol/L (21-32) Anion Gap 9 (6-14) Blood Urea Nitrogen 53mg/dL (7-20) Creatinine 1.4mg/dL (0.6-1.0) Estimated GFR (Cockcroft-Gault) 38.1 Glucose Level 330mg/dL (70-99) Calcium Level 8.8mg/dL (8.5-10.1) Phosphorus Level 3.0mg/dL (2.6-4.7) Magnesium Level 2.3mg/dL (1.8-2.4) Creatine Kinase 280U/L (26-192) Albumin 3.8g/dL (3.4-5.0) Heparin Anti-Xa Act, Unfractionated 0.57IU/mL (0.30-0.70) Test 02/21/17 07:45 02/21/17 11:39 02/21/17 11:40 02/21/17 17:36 O2 Saturation 97% (92-99) 93% (92-99) Arterial Blood pH 7.48 (7.35-7.45) 7.43 (7.35-7.45) Arterial Blood pCO2 at Patient Temp 37mmHg (35-46) 39mmHg (35-46) Arterial Blood pO2 at Patient Temp 91mmHg (65-108) 71mmHg (65-108) Arterial Blood HCO3 27mmol/L (21-28) 25mmol/L (21-28) Arterial Blood Base Excess 4mmol/L (-3-3) 1mmol/L (-3-3) FiO2 40 40 Glucose (Fingerstick) 354mg/dL (70-99) 342mg/dL (70-99) Test 02/21/17 21:02 Glucose (Fingerstick) 277mg/dL (70-99) Laboratory Tests Test 02/21/17 00:20 02/21/17 05:20 02/21/17 05:57 02/21/17 07:00 Glucose (Fingerstick) 318mg/dL (70-99) 342mg/dL (70-99) White Blood Count 6.8x10^3/uL (4.0-11.0) Red Blood Count 4.16x10^6/uL (3.50-5.40) Hemoglobin 10.1g/dL (12.0-15.5) Hematocrit 31.2% (36.0-47.0) Mean Corpuscular Volume 75fL (79-100) Mean Corpuscular Hemoglobin 24pg (25-35) Mean Corpuscular Hemoglobin Concent 33g/dL (31-37) Red Cell Distribution Width 22.3% (11.5-14.5) Platelet Count 111x10^3/uL (140-400) Neutrophils (%) (Auto) 89% (31-73) Lymphocytes (%) (Auto) 4% (24-48) Monocytes (%) (Auto) 6% (0-9) Eosinophils (%) (Auto) 0% (0-3) Basophils (%) (Auto) 0% (0-3) Neutrophils # (Auto) 6.1x10^3uL (1.8-7.7) Lymphocytes # (Auto) 0.3x10^3/uL (1.0-4.8) Monocytes # (Auto) 0.4x10^3/uL (0.0-1.1) Eosinophils # (Auto) 0.0x10^3/uL (0.0-0.7) Basophils # (Auto) 0.0x10^3/uL (0.0-0.2) Sodium Level 136mmol/L (136-145) Potassium Level 3.8mmol/L (3.5-5.1) Chloride Level 98mmol/L (98-107) Carbon Dioxide Level 29mmol/L (21-32) Anion Gap 9 (6-14) Blood Urea Nitrogen 53mg/dL (7-20) Creatinine 1.4mg/dL (0.6-1.0) Estimated GFR (Cockcroft-Gault) 38.1 Glucose Level 330mg/dL (70-99) Calcium Level 8.8mg/dL (8.5-10.1) Phosphorus Level 3.0mg/dL (2.6-4.7) Magnesium Level 2.3mg/dL (1.8-2.4) Creatine Kinase 280U/L (26-192) Albumin 3.8g/dL (3.4-5.0) Heparin Anti-Xa Act, Unfractionated 0.57IU/mL (0.30-0.70) Test 02/21/17 07:45 02/21/17 11:39 02/21/17 11:40 02/21/17 17:36 O2 Saturation 97% (92-99) 93% (92-99) Arterial Blood pH 7.48 (7.35-7.45) 7.43 (7.35-7.45) Arterial Blood pCO2 at Patient Temp 37mmHg (35-46) 39mmHg (35-46) Arterial Blood pO2 at Patient Temp 91mmHg (65-108) 71mmHg (65-108) Arterial Blood HCO3 27mmol/L (21-28) 25mmol/L (21-28) Arterial Blood Base Excess 4mmol/L (-3-3) 1mmol/L (-3-3) FiO2 40 40 Glucose (Fingerstick) 354mg/dL (70-99) 342mg/dL (70-99) Test 02/21/17 21:02 Glucose (Fingerstick) 277mg/dL (70-99) Microbiology 02/18/17 Urine Culture - Final, Complete 02/18/17 Urine Culture Result 1 (NORBERTO) - Final, Complete Medications Current Medications Sodium Polystyrene Sulfonate (Kayexalate) 30 gm 1X ONCE PO Last administered on 02/17/17 03:54; Start 02/17/17 at 02:45; Stop 02/17/17 at 02:46; Status DC Ondansetron HCl (Zofran) 4 mg PRN Q6HRS PRN IV NAUSEA/VOMITING; Start 02/17/17 at 02:00 Pantoprazole Sodium (Protonix Vial) 40 mg TID IVP Last administered on 08:56; Start 02/17/17 at 09:00; Stop 02/17/17 at 13:17; Status DC Acetaminophen 650 mg 650 mg PRN Q6HRS PRN PO FEVER; Start 02/17/17 at 02:00 Midazolam HCl 100 ml @ 0 mls/hr CONT PRN IV SEE I/O RECORD Last administered on 02/17/17 20:34; Start 02/17/17 at 02:30 Levothyroxine Sodium 37.5 mcg/ Sodium Chloride 5 ml @ 100 mls/hr DAILY IVP Last administered on 02/21/17 08:44; Start 02/17/17 at 09:00 Sodium Chloride 1,000 ml @ 100 mls/hr 1X ONCE IV Last administered on 04:25; Start 02/17/17 at 04:30; Stop 02/17/17 at 11:25; Status DC Sodium Chloride (Iv Sodium Chloride 0.9% 1000ml Bag) 1,000 ml @ 100 mls/hr 1X ONCE IV Last administered on 02/17/17 04:25; Start 02/17/17 at 04:30; Stop at 09:15; Status DC Pneumococcal Polyvalent Vaccine (Do NOT chart on this placeholder) 1 each 1X ONCE MC ; Start 02/17/17 at 06:00; Stop 02/17/17 at 06:01; Status UNV Pneumococcal Polyvalent Vaccine 0.5 ml 0.5 ml ONCE ONCE VAX IM ; Start 02/17/17 at 09:00; Stop 02/17/17 at 09:01; Status DC Norepinephrine Bitartrate 250 ml @ 0 mls/hr CONT PRN IV SEE I/O RECORD Last administered on 02/18/17 11:15; Start 02/17/17 at 06:15 Sodium Chloride 1,000 ml @ 1,000 mls/hr 1X ONCE IV Last administered on 08:56; Start 02/17/17 at 08:15; Stop 02/17/17 at 09:14; Status DC Piperacillin Sod/ Tazobactam Sod 2.25 gm/Sodium Chloride 50 ml @ 100 mls/hr Q8HRS IV Last administered on 02/21/17 20:59; Start 02/17/17 at 08:45 Magnesium Sulfate/ Dextrose (Magnesium Sulfate PREMIX 2GM) 50 ml @ 25 mls/hr 1X ONCE IV Last administered on 02/17/17 09:30; Start 02/17/17 at 09:00; Stop 02/17/17 at 10:59; Status DC Fentanyl Citrate 50 mcg 50 mcg PRN Q2HR PRN IV PAIN Last administered on 21:00; Start 02/17/17 at 09:00 Sodium Chloride (Iv Sodium Chloride 0.9% 1000ml Bag) 1,000 ml @ 1,000 mls/hr 1X ONCE IV Last administered on 02/17/17 08:57; Start 02/17/17 at 09:00; Stop 02/17/17 at 09:59; Status DC Heparin Sodium (Porcine) (Heparin Sodium) 10,000 unit STK-MED ONCE .ROUTE ; Start 02/17/17 at 09:23; Stop 02/17/17 at 09:24; Status DC Lidocaine/Sodium Bicarbonate 20 ml 20 ml STK-MED ONCE IJ ; Start 02/17/17 at 09: 23; Stop 02/17/17 at 09:24; Status DC Heparin Sodium/ Sodium Chloride 500 ml @ As Directed STK-MED ONCE .ROUTE ; Start 02/17/17 at 09:23; Stop 02/17/17 at 09:24; Status DC Lidocaine/Sodium Bicarbonate (Buffered Lidocaine 1%) 3 ml 1X ONCE IJ ; Start at 09:30; Stop 02/17/17 at 09:35; Status DC Heparin Sodium/ Sodium Chloride 60 unit 1X ONCE IV ; Start 02/17/17 at 09:30; Stop 02/17/17 at 09:35; Status DC Heparin Sodium (Porcine) (Heparin Sodium) 2,500 unit 1X ONCE INT CAT ; Start at 09:30; Stop 02/17/17 at 09:35; Status DC Sodium Bicarbonate 50 meq STK-MED ONCE .ROUTE ; Start 02/17/17 at 09:42; Stop at 09:43; Status DC Sodium Bicarbonate 100 meq 100 meq 1X ONCE IV Last administered on 02/17/17 09:51; Start 02/17/17 at 09:45; Stop 02/17/17 at 09:48; Status DC Sodium Bicarbonate 150 meq/Dextrose 1,150 ml @ 150 mls/hr Q7H40M IV Last administered on 02/17/17 10:34; Start 02/17/17 at 09:45; Stop 02/17/17 at 18:05 ; Status DC Vasopressin/ Dextrose (Vasostrict) 102 ml @ 6 mls/hr ONCE ONCE IV Last administered on 02/17/17 10:34; Start 02/17/17 at 10:00; Stop 02/18/17 at 02:59 ; Status DC Hydrocortisone Sodium Succinate (Solu-Cortef) 100 mg Q8HRS IV ; Start 02/17/17 at 10:30; Stop 02/17/17 at 10:30; Status DC Vancomycin HCl (Vanco Per Pharmacy) 1 each PRN DAILY PRN MC SEE COMMENTS Last administered on 02/17/17 10:28; Start 02/17/17 at 10:15; Stop 02/18/17 at 12:50 ; Status DC Lidocaine/Sodium Bicarbonate (Buffered Lidocaine 1%) 3 ml 1X ONCE IJ ; Start at 10:15; Stop 02/17/17 at 10:16; Status DC Heparin Sodium/ Sodium Chloride 60 unit 1X ONCE IV ; Start 02/17/17 at 10:15; Stop 02/17/17 at 10:16; Status DC Heparin Sodium (Porcine) (Heparin Sodium) 2,500 unit 1X ONCE INT CAT ; Start at 10:15; Stop 02/17/17 at 10:16; Status DC Hydrocortisone Sodium Succinate 100 mg 100 mg ONCE ONCE IV Last administered on 02/17/17 10:36; Start 02/17/17 at 10:30; Stop 02/17/17 at 10:31; Status DC Vasopressin 40 unit/Dextrose 102 ml @ 6 mls/hr CONT PRN IV SEE I/O RECORD Last administered on 02/18/17 13:53; Start 02/17/17 at 10:15 Vancomycin HCl/ Sodium Chloride (Iv Sodium Chloride 0.9% 500ml Bag) 500 ml @ 250 mls/hr ONCE ONCE IV Last administered on 02/17/17 13:53; Start 02/17/17 at 10:30; Stop 02/17/17 at 12:29; Status DC Hydrocortisone Sodium Succinate (Solu-Cortef) 100 mg Q8HRS IV Last administered on 02/21/17 20:59; Start 02/17/17 at 14:00 Vancomycin HCl 1 each 1X ONCE MC ; Start 02/19/17 at 10:30; Stop 02/19/17 at 10 :30; Status DC Chlorhexidine Gluconate 15 ml 15 ml BID SWSP Last administered on 02/21/17 20: 59; Start 02/17/17 at 21:00 Sodium Chloride 1,000 ml @ 100 mls/hr Q10H IV Last administered on 02/17/17 13:53; Start 02/17/17 at 12:15; Stop 02/17/17 at 18:58; Status DC Sodium Chloride (Iv Sodium Chloride 0.9% 1000ml Bag) 1,000 ml @ 1,000 mls/hr Q1H PRN IV hypotension; Start 02/17/17 at 12:28; Stop 02/17/17 at 18:27; Status DC Sodium Chloride (Normal Saline Flush) 10 ml 1X PRN PRN IV AP catheter pack; Start 02/17/17 at 12:30; Stop 02/18/17 at 12:29; Status DC Sodium Chloride (Normal Saline Flush) 10 ml 1X PRN PRN IV MEDICATION NURSE catheter pack; Start 02/17/17 at 12:30; Stop 02/18/17 at 12:29; Status DC Info (PHARMACY MONITORING -- do not chart) 1 each PRN DAILY PRN MC SEE COMMENTS ; Start 02/17/17 at 12:30 Info (PHARMACY MONITORING -- do not chart) 1 each PRN DAILY PRN MC SEE COMMENTS ; Start 02/17/17 at 12:30; Status UNV Pantoprazole Sodium 40 mg 40 mg DAILY IVP Last administered on 02/21/17 07:48 ; Start 02/18/17 at 09:00 Albumin Human 50 ml @ 50 mls/hr 1X ONCE IV Last administered on 02/17/17 18: 58; Start 02/17/17 at 18:45; Stop 02/17/17 at 19:44; Status DC Sodium Chloride 1,000 ml @ 125 mls/hr 1X ONCE IV ; Start 02/17/17 at 18:45; Stop 02/18/17 at 09:15; Status DC Sodium Chloride 1,000 ml @ 125 mls/hr Q8H IV Last administered on 02/18/17 05 :42; Start 02/17/17 at 19:00; Stop 02/18/17 at 09:15; Status DC Sodium Chloride 1,000 ml @ 1,000 mls/hr Q1H PRN IV hypotension; Start 02/18/17 at 07:47; Stop 02/18/17 at 13:46; Status DC Albumin Human (Albuminar) 200 ml @ 200 mls/hr 1X PRN PRN IV Hypotension; Start 02/18/17 at 08:00; Stop 02/18/17 at 13:59; Status DC Acetaminophen (Tylenol) 500 mg 1X PRN PRN PO MILD PAIN / TEMP; Start 02/18/17 at 08:00; Stop 02/19/17 at 07:59; Status DC Diphenhydramine HCl (Benadryl) 25 mg 1X PRN PRN IV ITCHING; Start 02/18/17 at 08:00; Stop 02/19/17 at 07:59; Status DC Diphenhydramine HCl (Benadryl) 25 mg 1X PRN PRN IV ITCHING; Start 02/18/17 at 08:00; Stop 02/19/17 at 07:59; Status DC Labetalol HCl (Normodyne) 10 mg PRN Q1HR PRN IVP SBP > 180; Start 02/18/17 at 08:00; Stop 02/19/17 at 07:59; Status DC Clonidine HCl 0.1 mg 0.1 mg 1X PRN PRN PO SBP > 180; Start 02/18/17 at 08:00; Stop 02/19/17 at 07:59; Status DC Sodium Chloride (Iv Sodium Chloride 0.9% 1000ml Bag) 1,000 ml @ 400 mls/hr Q2H30M PRN IV PATENCY; Start 02/18/17 at 07:47; Stop 02/18/17 at 19:46; Status DC Info 1 each 1 each PRN DAILY PRN MC SEE COMMENTS; Start 02/18/17 at 08:00; Status UNV Magnesium Sulfate/ Dextrose 50 ml @ 25 mls/hr PRN DAILY PRN IV for Mag < 1.7 on am labs Last administered on 02/18/17 11:16; Start 02/18/17 at 08:00 Propofol 100 ml @ As Directed STK-MED ONCE IV ; Start 02/18/17 at 11:47; Stop 02/18/17 at 11:48; Status DC Propofol (Diprivan) 100 ml @ 0 mls/hr CONT PRN IV SEE I/O RECORD Last administered on 02/21/17 17:30; Start 02/18/17 at 12:45 Insulin Aspart (Novolog) 0-7 UNITS Q6HRS SQ Last administered on 02/21/17 17: 38; Start 02/19/17 at 00:00 Dextrose 12.5 gm 12.5 gm PRN Q15MIN PRN IV SEE COMMENTS; Start 02/18/17 at 21: 00 Magnesium Sulfate/ Dextrose 50 ml @ 25 mls/hr PRN DAILY PRN IV for Mag < 1.7 on am labs; Start 02/19/17 at 07:45; Stop 02/19/17 at 10:20; Status DC Potassium Chloride 50 ml @ 50 mls/hr PRN Q6HRS PRN IV For K < 3.7; Start at 07:45 Potassium Chloride 50 ml @ 50 mls/hr PRN Q2HR PRN IV total of 40mEq for K < 3.5; Start 02/19/17 at 07:45 Calcium Chloride 2000 mg/Sodium Chloride 120 ml @ 240 mls/hr 1X ONCE IV ; Start 02/19/17 at 08:00; Stop 02/19/17 at 08:29; Status DC Albumin Human (Albuminar) 100 ml @ 100 mls/hr TID IV Last administered on 02/20 20:51; Start 02/19/17 at 09:00; Stop 02/20/17 at 21:59; Status DC Bupropion HCl (Wellbutrin) 75 mg BID NG Last administered on 02/21/17 21:00; Start 02/19/17 at 12:00 Citalopram Hydrobromide 20 mg 20 mg DAILY NG Last administered on 02/21/17 07: 48; Start 02/19/17 at 12:00 Heparin Sodium/ Dextrose 500 ml @ 20 mls/hr CONT PRN IV SEE I/O RECORD Last administered on 02/21/17 17:26; Start 02/19/17 at 13:15 Info 1 each 1 each PRN DAILY PRN MC SEE COMMENTS Last administered on 16:11; Start 02/20/17 at 07:45 Potassium Chloride (KCl Premix 20meq) 50 ml @ 50 mls/hr Q1HR IV Last administered on 02/20/17 09:48; Start 02/20/17 at 09:00; Stop 02/20/17 at 10:59 ; Status DC Metoprolol Tartrate (Lopressor) 2.5 mg 1X ONCE IVP Last administered on 14:19; Start 02/20/17 at 14:00; Stop 02/20/17 at 14:01; Status DC Metoprolol Tartrate (Lopressor) 2.5 mg Q6HRS IVP Last administered on 17:25; Start 02/20/17 at 14:00 Albuterol/ Ipratropium (Duoneb) 3 ml RTQID NEB Last administered on 02/21/17 19:54; Start 02/21/17 at 12:00 Insulin Detemir (Levemir) 10 units QHS SQ Last administered on 02/21/17t 21:03 ; Start 02/21/17 at 21:00 Active Scripts Active [place] 7.5-325 Tablet (Acetaminophen/Hydrocodone Bitart) 1 Each Tablet 1 Tab PO PRN Q6HRS PRN Reported Requip (Ropinirole Hcl) 1 Mg Tablet 4 Mg PO DAILY Aspir 81 (Aspirin) 81 Mg Tablet.dr 81 Mg PO DAILY Wellbutrin Sr (Bupropion Hcl) 150 Mg Tablet.er 150 Mg PO DAILY Toprol Xl (Metoprolol Succinate) 25 Mg Tab.er.24h 12 Mg PO DAILY Lasix (Furosemide) 40 Mg Tablet 40 Mg PO DAILY Pravastatin Sodium 40 Mg Tablet 40 Mg PO DAILY Pantoprazole Sodium 40 Mg Tablet.dr 40 Mg PO DAILY Doxycycline Hyclate 100 Mg Capsule 1 Cap PO BID Hydrocodone-Apap 5-325 (Hydrocodone Bit/Acetaminophen) 1 Each Tablet 1-2 Tab PO Q4-6HRS PRN Levothyroxine Sodium 75 Mcg Tablet 1 Tab PO DAILY Citalopram Hbr (Citalopram Hydrobromide) 20 Mg Tablet 20 Mg PO DAILY Losartan Potassium 50 Mg Tablet 50 Mg PO DAILY Metformin Hcl 500 Mg Tablet 1 Tab PO TIDWMEALS Vitals/I & O Vital Sign - Last 24 Hours 02/20/17 02/21/17 02/21/17 02/21/17 23:24 00:00 00:00 00:00 Temp 97.6 97.6 Pulse 67 82 Resp 14 B/P 125/68 111/79 Pulse Ox 97 98 O2 Delivery Ventilator Ventilator Mechanical Ventilator 02/21/17 02/21/17 02/21/17 02/21/17 00:20 01:00 01:45 02:00 Pulse 83 78 88 Resp 14 14 B/P 135/91 132/70 128/88 Pulse Ox 97 97 97 O2 Delivery Ventilator Ventilator Ventilator 02/21/17 02/21/17 02/21/17 02/21/17 03:00 03:41 04:00 04:00 Temp 97.5 97.5 Pulse 83 77 Resp 14 15 B/P 147/77 145/70 Pulse Ox 96 97 97 O2 Delivery Ventilator Ventilator Ventilator Mechanical Ventilator 02/21/17 02/21/17 02/21/17 02/21/17 04:00 05:00 05:41 05:59 Pulse 77 77 78 Resp 16 B/P 143/70 117/79 117/79 Pulse Ox 97 97 O2 Delivery Ventilator Ventilator 02/21/17 02/21/17 02/21/17 02/21/17 06:00 07:00 08:00 08:00 Temp 97.5 97.5 Pulse 73 74 78 Resp 14 14 15 B/P 105/72 106/72 105/72 Pulse Ox 97 97 96 O2 Delivery Ventilator Ventilator Mechanical Ventilator Ventilator 02/21/17 02/21/17 02/21/17 02/21/17 08:00 08:33 09:00 10:00 Pulse 84 76 78 Resp 15 19 B/P 160/76 117/73 102/66 Pulse Ox 96 96 97 O2 Delivery Ventilator Ventilator Ventilator 02/21/17 02/21/17 02/21/17 02/21/17 11:13 11:15 11:47 12:00 Pulse 101 89 Resp 33 B/P 151/103 175/114 144/71 Pulse Ox 95 O2 Delivery Ventilator Ventilator 02/21/17 02/21/17 02/21/17 02/21/17 12:16 12:20 13:20 14:00 Temp 98.9 98.9 Pulse 82 82 80 Resp 16 15 16 B/P 132/82 135/86 112/78 Pulse Ox 96 97 97 O2 Delivery Ventilator Mechanical Ventilator Ventilator Ventilator 02/21/17 02/21/17 02/21/17 02/21/17 15:00 15:51 16:00 16:00 Pulse 79 Resp 15 B/P 100/81 171/73 Pulse Ox 96 96 O2 Delivery Ventilator Ventilator Mechanical Ventilator 02/21/17 02/21/17 02/21/17 02/21/17 17:04 17:09 17:25 18:07 Temp 97.5 97.5 Pulse 77 85 74 Resp 15 16 B/P 119/74 155/105 152/98 Pulse Ox 96 96 96 O2 Delivery Ventilator Ventilator Ventilator 02/21/17 02/21/17 02/21/17 02/21/17 19:00 19:54 20:00 20:00 Pulse 80 81 Resp 16 B/P 141/71 181/90 Pulse Ox 97 97 O2 Delivery Ventilator Ventilator Mechanical Ventilator 02/21/17 02/21/17 02/21/17 02/21/17 20:00 21:00 21:00 21:30 Temp 98.6 98.6 Pulse 79 72 Resp 16 18 16 16 B/P 163/85 114/50 Pulse Ox 97 97 O2 Delivery Ventilator Ventilator Ventilator Ventilator 02/21/17 02/21/17 22:00 23:00 Pulse 73 68 Resp 16 16 B/P 125/59 120/61 Pulse Ox 96 97 O2 Delivery Ventilator Ventilator Intake and Output 02/20/17 02/20/17 02/21/17 14:59 22:59 06:59 Intake Total 685 ml 1699 ml 1036 ml Output Total 727 ml 353 ml Balance 685 ml 972 ml 683 ml Nutrition Consultation Dietary Evaluation: Comments: Rec. TF's with Peptamen AF, goal rate 55 ml/hr start at 15 ml/hr, increase by 15 ml/hr q8h to goal rate flushes PRN while on IVF's Expected Outcomes/Goals: Tolerate TF's at goal rate Malnutrition Findings: Reduced Pocket [employer] Strength: N/A Malnutrition related to morbid: No Weight Status: Obese OLIVIA MIR III DO Feb 21, 2017 23:18
[2017-02-22] VITALS (25 sets, daily range): BP systolic 116–206; BP diastolic 51–102
[2017-02-22] MEDS: METOPROLOL TARTRATE 5 MG/5 ML VIAL. IVP SCH ×4 (00:15→17:51)
[2017-02-22] MEDS: INSULIN ASPART 300 UNITS/3 ML INSULN.PEN SQ SCH ×4 (00:18→17:54)
[2017-02-22] MEDS: PROPOFOL 100 ML IV PRN ×3 (00:55→17:50)
[2017-02-22] MEDS: fentaNYL PF VIAL 100 MCG/2 ML VIAL IV PRN (02:37)
[2017-02-22] MEDS: PIPERACILLIN/TAZOBACTAM 2.25 GM in IV NORMAL SALINE 50ML 50 ML IV SCH ×3 (05:09→22:23)
[2017-02-22] MEDS: HYDROCORTISONE SOD SUCC/PF 100 MG/2 ML VIAL. IV SCH ×3 (05:10→22:23)
[2017-02-22 07:07] LABS: ALBUMIN 3.3 g/dL (3.4-5.0); CALCIUM 8.6 mg/dL (8.5-10.1); CREATININE 1.4 mg/dL (0.6-1.0); GFR 38.1; PHOSPHORUS 3.2 mg/dL (2.6-4.7); POTASSIUM 3.4 mmol/L (3.5-5.1)
[2017-02-22] MEDS: IPRATRPIUM/ALBUTEROL 0.5/2.5MG 3 ML NEBU. NEB SCH ×4 (07:21→19:26)
[2017-02-22 07:38] LABS: HCO3 ABG 30 mmol/L (21-28); PCO2 ABG 44 mmHg (35-46); PH ABG 7.45 (7.35-7.45); PO2 ABG 95 mmHg (65-108); SAT O2 ABG 97 % (92-99)
[2017-02-22 07:40] LABS: FIO2 ABG 40
[2017-02-22 07:51] LABS: BASO % 0 % (0-3); EOS % 0 % (0-3); HEMATOCRIT 32.9 % (36.0-47.0); HEMOGLOBIN 10.1 g/dL (12.0-15.5); LYMPH # 0.4 x10^3/uL (1.0-4.8); LYMPH % 6 % (24-48); MEAN CORPUSCULAR HEMOGLOBIN 24 pg (25-35); MEAN CORPUSCULAR HGB CONC 31 g/dL (31-37); MEAN CORPUSCULAR VOLUME 77 fL (79-100); MONO % 7 % (0-9); NEUT % 87 % (31-73); PLATELET COUNT 110 x10^3/uL (140-400); RED BLOOD COUNT 4.28 x10^6/uL (3.50-5.40); RED CELL DISTRIBUTION WIDTH 22.6 % (11.5-14.5); WHITE BLOOD COUNT 6.9 x10^3/uL (4.0-11.0)
--- NOTE | 2017-02-22 08:40 | PDOC ---
Infectious Disease Note Subjective Subjective Remains intubated. FiO2 40% Sedated No fever Tube feedings ROS ROS Vital Sign Vital Signs Vital Signs Date Time Temp Pulse Resp B/P Pulse Ox O2 Delivery O2 Flow Rate FiO2 02/22/17 07:21 96 Ventilator 02/22/17 07:00 73 14 162/81 02/22/17 04:00 98.2 98.2 Physical Exam PHYSICAL EXAM GENERAL: Moving arms and head some, unresponsive to verbal HEENT: PERRL, ETT. OGT LUNGS: Clear HEART: S1S2, regular ABD: Soft, BS present : [place] EXT: BLE edema. No cyanosis OUTSIDE CUTTER HAND: Sedated SKIN: No rash RIJ HDC, right radial art-line and left subclavian cath. clean Labs Lab Laboratory Tests Test 02/21/17 11:39 02/21/17 11:40 02/21/17 17:36 02/21/17 21:02 Glucose (Fingerstick) 354mg/dL (70-99) 342mg/dL (70-99) 277mg/dL (70-99) O2 Saturation 93% (92-99) Arterial Blood pH 7.43 (7.35-7.45) Arterial Blood pCO2 at Patient Temp 39mmHg (35-46) Arterial Blood pO2 at Patient Temp 71mmHg (65-108) Arterial Blood HCO3 25mmol/L (21-28) Arterial Blood Base Excess 1mmol/L (-3-3) FiO2 40 Test 02/22/17 00:16 02/22/17 05:15 02/22/17 05:30 02/22/17 07:30 Glucose (Fingerstick) 259mg/dL (70-99) 314mg/dL (70-99) White Blood Count 6.9x10^3/uL (4.0-11.0) Red Blood Count 4.28x10^6/uL (3.50-5.40) Hemoglobin 10.1g/dL (12.0-15.5) Hematocrit 32.9% (36.0-47.0) Mean Corpuscular Volume 77fL (79-100) Mean Corpuscular Hemoglobin 24pg (25-35) Mean Corpuscular Hemoglobin Concent 31g/dL (31-37) Red Cell Distribution Width 22.6% (11.5-14.5) Platelet Count 110x10^3/uL (140-400) Neutrophils (%) (Auto) 87% (31-73) Lymphocytes (%) (Auto) 6% (24-48) Monocytes (%) (Auto) 7% (0-9) Eosinophils (%) (Auto) 0% (0-3) Basophils (%) (Auto) 0% (0-3) Neutrophils # (Auto) 6.0x10^3uL (1.8-7.7) Lymphocytes # (Auto) 0.4x10^3/uL (1.0-4.8) Monocytes # (Auto) 0.5x10^3/uL (0.0-1.1) Eosinophils # (Auto) 0.0x10^3/uL (0.0-0.7) Basophils # (Auto) 0.0x10^3/uL (0.0-0.2) Heparin Anti-Xa Act, Unfractionated 0.54IU/mL (0.30-0.70) Sodium Level 139mmol/L (136-145) Potassium Level 3.4mmol/L (3.5-5.1) Chloride Level 100mmol/L (98-107) Carbon Dioxide Level 31mmol/L (21-32) Anion Gap 8 (6-14) Blood Urea Nitrogen 52mg/dL (7-20) Creatinine 1.4mg/dL (0.6-1.0) Estimated GFR (Cockcroft-Gault) 38.1 Glucose Level 328mg/dL (70-99) Calcium Level 8.6mg/dL (8.5-10.1) Phosphorus Level 3.2mg/dL (2.6-4.7) Magnesium Level 2.0mg/dL (1.8-2.4) Creatine Kinase 127U/L (26-192) Albumin 3.3g/dL (3.4-5.0) O2 Saturation 97% (92-99) Arterial Blood pH 7.45 (7.35-7.45) Arterial Blood pCO2 at Patient Temp 44mmHg (35-46) Arterial Blood pO2 at Patient Temp 95mmHg (65-108) Arterial Blood HCO3 30mmol/L (21-28) Arterial Blood Base Excess 5mmol/L (-3-3) FiO2 40 Objective Assessment ? sepsis vs SIRS. Received Solu-Medrol in [facility]. On Solu-Cortef. Off pressors NSTEMI Ecoli in urine 02/17 ? colonization - Res to Pip but she is responding so likely sens to Zosyn Hyperglycemia ? Aspiration - intubated- h/o Pulm fibrosis Lactic acidosis - improved BRADLEY - dehydration. Getting HD Transaminitis H/o elevated CORA DM and gastroparesis Plan Plan of Care Continue Zosyn Monitor labs Supportive May need further eval for ? autoimmune given elevated CORA 1:640 with homogenous patten in Nov 2014 but now on hydrocortisone Critically ill Attending Co-Sign The patient was seen and interviewed as well as examined at the bedside. The chart was reviewed. The case was discussed. Agree with the plan of care. ALLYN WARD APRN Feb 22, 2017 08:40 ELIAS AMEZQUITA MD Feb 22, 2017 13:06
[2017-02-22] MEDS: CHLORHEXIDINE 0.12% 15 ML MOUTHWASH. SWSP SCH ×2 (10:00→21:06)
[2017-02-22] MEDS: PANTOPRAZOLE IV PUSH 40 MG VIAL. IVP SCH (10:00)
[2017-02-22] MEDS: LEVOTHYROXINE SODIUM 37.5 MCG in IV NORMAL SALINE 50ML 5 ML IVP SCH (10:00)
[2017-02-22] MEDS: CITALOPRAM 20 MG TABLET. NG SCH (10:01)
[2017-02-22] MEDS: buPROPion 75 MG TABLET. NG SCH ×2 (10:03→21:08)
[2017-02-22] MEDS: POTASSIUM CHLORIDE 20MEQ 50 ML IV PRN ×2 (10:41→12:11)
--- NOTE | 2017-02-22 12:55 | PDOC ---
PROGRESS NOTES Chief Complaint Chief Complaint cc: Respiratory failure -Acute renal failure -NSTEMI -CAD -Septic shock -CABG -HLD -HTN -Tonsillectomy -Pulmonary fibrosis -FREDY -Obesity -Constipation -GERD -Breast excision -Tubal ligation -DM -Hypothyroidism -Anxiety -Smoking -Hepatitis A History of Present Illness History of Present Illness Ms. Betancourt was in bed when we visited, and her was present. We discussed the patient with both him and the nurse. She was on a ventilator, and the settings were A/C / 14 f / 500 VT / 40% FiO2 / 5 PEEP. The reports that although she is moving around more today, which is congruent with her being more responsive the previous day, she seems to be more agitated than anything and is not responding to stimuli. She had mittens on to prevent IV removal. She also had a wrist splint on her right arm, and the arterial line it was protecting showed a good waveform. The patient had heparin, KCl, PPN, and propofol hanging from the IV rack. Vitals Vitals Vital Signs Date Time Temp Pulse Resp B/P Pulse Ox O2 Delivery O2 Flow Rate FiO2 02/22/17 12:07 82 158/77 02/22/17 12:00 Mechanical Ventilator 02/22/17 12:00 97.8 14 99 97.8 Physical Exam General: No acute distress, Other (This patient was on a ventilator.) Heart: Normal S1, Normal S2, No murmurs Lungs: Clear, Other (No chest retractions were present.) Abdomen: Soft, No masses Extremities: No cyanosis, Normal pulses Skin: No rashes, No significant lesion Labs LABS Laboratory Tests Test 02/21/17 17:36 02/21/17 21:02 02/22/17 00:16 02/22/17 05:15 Glucose (Fingerstick) 342mg/dL (70-99) 277mg/dL (70-99) 259mg/dL (70-99) 314mg/dL (70-99) Test 02/22/17 05:30 02/22/17 07:30 02/22/17 12:14 White Blood Count 6.9x10^3/uL (4.0-11.0) Red Blood Count 4.28x10^6/uL (3.50-5.40) Hemoglobin 10.1g/dL (12.0-15.5) Hematocrit 32.9% (36.0-47.0) Mean Corpuscular Volume 77fL (79-100) Mean Corpuscular Hemoglobin 24pg (25-35) Mean Corpuscular Hemoglobin Concent 31g/dL (31-37) Red Cell Distribution Width 22.6% (11.5-14.5) Platelet Count 110x10^3/uL (140-400) Neutrophils (%) (Auto) 87% (31-73) Lymphocytes (%) (Auto) 6% (24-48) Monocytes (%) (Auto) 7% (0-9) Eosinophils (%) (Auto) 0% (0-3) Basophils (%) (Auto) 0% (0-3) Neutrophils # (Auto) 6.0x10^3uL (1.8-7.7) Lymphocytes # (Auto) 0.4x10^3/uL (1.0-4.8) Monocytes # (Auto) 0.5x10^3/uL (0.0-1.1) Eosinophils # (Auto) 0.0x10^3/uL (0.0-0.7) Basophils # (Auto) 0.0x10^3/uL (0.0-0.2) Heparin Anti-Xa Act, Unfractionated 0.54IU/mL (0.30-0.70) Sodium Level 139mmol/L (136-145) Potassium Level 3.4mmol/L (3.5-5.1) Chloride Level 100mmol/L (98-107) Carbon Dioxide Level 31mmol/L (21-32) Anion Gap 8 (6-14) Blood Urea Nitrogen 52mg/dL (7-20) Creatinine 1.4mg/dL (0.6-1.0) Estimated GFR (Cockcroft-Gault) 38.1 Glucose Level 328mg/dL (70-99) Calcium Level 8.6mg/dL (8.5-10.1) Phosphorus Level 3.2mg/dL (2.6-4.7) Magnesium Level 2.0mg/dL (1.8-2.4) Creatine Kinase 127U/L (26-192) Albumin 3.3g/dL (3.4-5.0) O2 Saturation 97% (92-99) Arterial Blood pH 7.45 (7.35-7.45) Arterial Blood pCO2 at Patient Temp 44mmHg (35-46) Arterial Blood pO2 at Patient Temp 95mmHg (65-108) Arterial Blood HCO3 30mmol/L (21-28) Arterial Blood Base Excess 5mmol/L (-3-3) FiO2 40 Glucose (Fingerstick) 366mg/dL (70-99) Review of Systems Review of Systems The patient was intubated and was unable to answer any questions. The reports that she has not demonstrated any obvious change since the previous day. Assessment and Plan Assessmemt and Plan Problems Medical Problems: (1) ARF (acute renal failure) Status: Acute (2) Cardiac failure Status: Acute (3) Hypoxia Status: Acute (4) Respiratory failure Status: Acute cc: Respiratory failure Assessment: Ms. Betancourt is a 61 year old female who presented with respiratory failure. -Acute renal failure -NSTEMI -CAD -Septic shock -CABG -HLD -HTN -Tonsillectomy -Pulmonary fibrosis -FREDY -Obesity -Constipation -GERD -Breast excision -Tubal ligation -DM -Hypothyroidism -Anxiety -Smoking -Hepatitis A Plan: 1. Change insulin detemir to 30U 2. Continue breathing treatments ipratropium/albuterol 3. Continue potassium replacement hypokalemia 4. Continue sedative and pain management 5. Monitor anemia levels and consider iron studies if worsens 6. Continue home medications 7. Continue hydrocortisone per pulmonology 8. DVT prophylaxis heparin 9. Continue Zosyn per ID 10. Cardiac catheterization next week per cardiology 11. Recheck labs 12. PT/OT 13. Appreciate subspecialist consultation Problems: Comment Review of Relevant I have reviewed the following items trey (where applicable) has been applied. Labs Laboratory Tests Test 02/20/17 13:40 02/20/17 17:47 02/21/17 00:20 02/21/17 05:20 Glucose (Fingerstick) 301mg/dL (70-99) 279mg/dL (70-99) 318mg/dL (70-99) White Blood Count 6.8x10^3/uL (4.0-11.0) Red Blood Count 4.16x10^6/uL (3.50-5.40) Hemoglobin 10.1g/dL (12.0-15.5) Hematocrit 31.2% (36.0-47.0) Mean Corpuscular Volume 75fL (79-100) Mean Corpuscular Hemoglobin 24pg (25-35) Mean Corpuscular Hemoglobin Concent 33g/dL (31-37) Red Cell Distribution Width 22.3% (11.5-14.5) Platelet Count 111x10^3/uL (140-400) Neutrophils (%) (Auto) 89% (31-73) Lymphocytes (%) (Auto) 4% (24-48) Monocytes (%) (Auto) 6% (0-9) Eosinophils (%) (Auto) 0% (0-3) Basophils (%) (Auto) 0% (0-3) Neutrophils # (Auto) 6.1x10^3uL (1.8-7.7) Lymphocytes # (Auto) 0.3x10^3/uL (1.0-4.8) Monocytes # (Auto) 0.4x10^3/uL (0.0-1.1) Eosinophils # (Auto) 0.0x10^3/uL (0.0-0.7) Basophils # (Auto) 0.0x10^3/uL (0.0-0.2) Sodium Level 136mmol/L (136-145) Potassium Level 3.8mmol/L (3.5-5.1) Chloride Level 98mmol/L (98-107) Carbon Dioxide Level 29mmol/L (21-32) Anion Gap 9 (6-14) Blood Urea Nitrogen 53mg/dL (7-20) Creatinine 1.4mg/dL (0.6-1.0) Estimated GFR (Cockcroft-Gault) 38.1 Glucose Level 330mg/dL (70-99) Calcium Level 8.8mg/dL (8.5-10.1) Phosphorus Level 3.0mg/dL (2.6-4.7) Magnesium Level 2.3mg/dL (1.8-2.4) Creatine Kinase 280U/L (26-192) Albumin 3.8g/dL (3.4-5.0) Test 02/21/17 05:57 02/21/17 07:00 02/21/17 07:45 02/21/17 11:39 Glucose (Fingerstick) 342mg/dL (70-99) 354mg/dL (70-99) Heparin Anti-Xa Act, Unfractionated 0.57IU/mL (0.30-0.70) O2 Saturation 97% (92-99) Arterial Blood pH 7.48 (7.35-7.45) Arterial Blood pCO2 at Patient Temp 37mmHg (35-46) Arterial Blood pO2 at Patient Temp 91mmHg (65-108) Arterial Blood HCO3 27mmol/L (21-28) Arterial Blood Base Excess 4mmol/L (-3-3) FiO2 40 Test 02/21/17 11:40 02/21/17 17:36 02/21/17 21:02 02/22/17 00:16 O2 Saturation 93% (92-99) Arterial Blood pH 7.43 (7.35-7.45) Arterial Blood pCO2 at Patient Temp 39mmHg (35-46) Arterial Blood pO2 at Patient Temp 71mmHg (65-108) Arterial Blood HCO3 25mmol/L (21-28) Arterial Blood Base Excess 1mmol/L (-3-3) FiO2 40 Glucose (Fingerstick) 342mg/dL (70-99) 277mg/dL (70-99) 259mg/dL (70-99) Test 02/22/17 05:15 02/22/17 05:30 02/22/17 07:30 02/22/17 12:14 Glucose (Fingerstick) 314mg/dL (70-99) 366mg/dL (70-99) White Blood Count 6.9x10^3/uL (4.0-11.0) Red Blood Count 4.28x10^6/uL (3.50-5.40) Hemoglobin 10.1g/dL (12.0-15.5) Hematocrit 32.9% (36.0-47.0) Mean Corpuscular Volume 77fL (79-100) Mean Corpuscular Hemoglobin 24pg (25-35) Mean Corpuscular Hemoglobin Concent 31g/dL (31-37) Red Cell Distribution Width 22.6% (11.5-14.5) Platelet Count 110x10^3/uL (140-400) Neutrophils (%) (Auto) 87% (31-73) Lymphocytes (%) (Auto) 6% (24-48) Monocytes (%) (Auto) 7% (0-9) Eosinophils (%) (Auto) 0% (0-3) Basophils (%) (Auto) 0% (0-3) Neutrophils # (Auto) 6.0x10^3uL (1.8-7.7) Lymphocytes # (Auto) 0.4x10^3/uL (1.0-4.8) Monocytes # (Auto) 0.5x10^3/uL (0.0-1.1) Eosinophils # (Auto) 0.0x10^3/uL (0.0-0.7) Basophils # (Auto) 0.0x10^3/uL (0.0-0.2) Heparin Anti-Xa Act, Unfractionated 0.54IU/mL (0.30-0.70) Sodium Level 139mmol/L (136-145) Potassium Level 3.4mmol/L (3.5-5.1) Chloride Level 100mmol/L (98-107) Carbon Dioxide Level 31mmol/L (21-32) Anion Gap 8 (6-14) Blood Urea Nitrogen 52mg/dL (7-20) Creatinine 1.4mg/dL (0.6-1.0) Estimated GFR (Cockcroft-Gault) 38.1 Glucose Level 328mg/dL (70-99) Calcium Level 8.6mg/dL (8.5-10.1) Phosphorus Level 3.2mg/dL (2.6-4.7) Magnesium Level 2.0mg/dL (1.8-2.4) Creatine Kinase 127U/L (26-192) Albumin 3.3g/dL (3.4-5.0) O2 Saturation 97% (92-99) Arterial Blood pH 7.45 (7.35-7.45) Arterial Blood pCO2 at Patient Temp 44mmHg (35-46) Arterial Blood pO2 at Patient Temp 95mmHg (65-108) Arterial Blood HCO3 30mmol/L (21-28) Arterial Blood Base Excess 5mmol/L (-3-3) FiO2 40 Laboratory Tests Test 02/21/17 17:36 02/21/17 21:02 02/22/17 00:16 02/22/17 05:15 Glucose (Fingerstick) 342mg/dL (70-99) 277mg/dL (70-99) 259mg/dL (70-99) 314mg/dL (70-99) Test 02/22/17 05:30 02/22/17 07:30 02/22/17 12:14 White Blood Count 6.9x10^3/uL (4.0-11.0) Red Blood Count 4.28x10^6/uL (3.50-5.40) Hemoglobin 10.1g/dL (12.0-15.5) Hematocrit 32.9% (36.0-47.0) Mean Corpuscular Volume 77fL (79-100) Mean Corpuscular Hemoglobin 24pg (25-35) Mean Corpuscular Hemoglobin Concent 31g/dL (31-37) Red Cell Distribution Width 22.6% (11.5-14.5) Platelet Count 110x10^3/uL (140-400) Neutrophils (%) (Auto) 87% (31-73) Lymphocytes (%) (Auto) 6% (24-48) Monocytes (%) (Auto) 7% (0-9) Eosinophils (%) (Auto) 0% (0-3) Basophils (%) (Auto) 0% (0-3) Neutrophils # (Auto) 6.0x10^3uL (1.8-7.7) Lymphocytes # (Auto) 0.4x10^3/uL (1.0-4.8) Monocytes # (Auto) 0.5x10^3/uL (0.0-1.1) Eosinophils # (Auto) 0.0x10^3/uL (0.0-0.7) Basophils # (Auto) 0.0x10^3/uL (0.0-0.2) Heparin Anti-Xa Act, Unfractionated 0.54IU/mL (0.30-0.70) Sodium Level 139mmol/L (136-145) Potassium Level 3.4mmol/L (3.5-5.1) Chloride Level 100mmol/L (98-107) Carbon Dioxide Level 31mmol/L (21-32) Anion Gap 8 (6-14) Blood Urea Nitrogen 52mg/dL (7-20) Creatinine 1.4mg/dL (0.6-1.0) Estimated GFR (Cockcroft-Gault) 38.1 Glucose Level 328mg/dL (70-99) Calcium Level 8.6mg/dL (8.5-10.1) Phosphorus Level 3.2mg/dL (2.6-4.7) Magnesium Level 2.0mg/dL (1.8-2.4) Creatine Kinase 127U/L (26-192) Albumin 3.3g/dL (3.4-5.0) O2 Saturation 97% (92-99) Arterial Blood pH 7.45 (7.35-7.45) Arterial Blood pCO2 at Patient Temp 44mmHg (35-46) Arterial Blood pO2 at Patient Temp 95mmHg (65-108) Arterial Blood HCO3 30mmol/L (21-28) Arterial Blood Base Excess 5mmol/L (-3-3) FiO2 40 Glucose (Fingerstick) 366mg/dL (70-99) Microbiology 02/18/17 Urine Culture - Final, Complete 02/18/17 Urine Culture Result 1 (NORBERTO) - Final, Complete Medications Current Medications Sodium Polystyrene Sulfonate (Kayexalate) 30 gm 1X ONCE PO Last administered on 02/17/17 03:54; Start 02/17/17 at 02:45; Stop 02/17/17 at 02:46; Status DC Ondansetron HCl (Zofran) 4 mg PRN Q6HRS PRN IV NAUSEA/VOMITING; Start 02/17/17 at 02:00 Pantoprazole Sodium (Protonix Vial) 40 mg TID IVP Last administered on 08:56; Start 02/17/17 at 09:00; Stop 02/17/17 at 13:17; Status DC Acetaminophen 650 mg 650 mg PRN Q6HRS PRN PO FEVER; Start 02/17/17 at 02:00 Midazolam HCl 100 ml @ 0 mls/hr CONT PRN IV SEE I/O RECORD Last administered on 02/17/17 20:34; Start 02/17/17 at 02:30 Levothyroxine Sodium 37.5 mcg/ Sodium Chloride 5 ml @ 100 mls/hr DAILY IVP Last administered on 02/22/17 10:00; Start 02/17/17 at 09:00 Sodium Chloride 1,000 ml @ 100 mls/hr 1X ONCE IV Last administered on 04:25; Start 02/17/17 at 04:30; Stop 02/17/17 at 11:25; Status DC Sodium Chloride (Iv Sodium Chloride 0.9% 1000ml Bag) 1,000 ml @ 100 mls/hr 1X ONCE IV Last administered on 02/17/17 04:25; Start 02/17/17 at 04:30; Stop at 09:15; Status DC Pneumococcal Polyvalent Vaccine (Do NOT chart on this placeholder) 1 each 1X ONCE MC ; Start 02/17/17 at 06:00; Stop 02/17/17 at 06:01; Status UNV Pneumococcal Polyvalent Vaccine 0.5 ml 0.5 ml ONCE ONCE VAX IM ; Start 02/17/17 at 09:00; Stop 02/17/17 at 09:01; Status DC Norepinephrine Bitartrate 250 ml @ 0 mls/hr CONT PRN IV SEE I/O RECORD Last administered on 02/18/17 11:15; Start 02/17/17 at 06:15 Sodium Chloride 1,000 ml @ 1,000 mls/hr 1X ONCE IV Last administered on 08:56; Start 02/17/17 at 08:15; Stop 02/17/17 at 09:14; Status DC Piperacillin Sod/ Tazobactam Sod 2.25 gm/Sodium Chloride 50 ml @ 100 mls/hr Q8HRS IV Last administered on 02/22/17 05:09; Start 02/17/17 at 08:45 Magnesium Sulfate/ Dextrose (Magnesium Sulfate PREMIX 2GM) 50 ml @ 25 mls/hr 1X ONCE IV Last administered on 02/17/17 09:30; Start 02/17/17 at 09:00; Stop 02/17/17 at 10:59; Status DC Fentanyl Citrate 50 mcg 50 mcg PRN Q2HR PRN IV PAIN Last administered on 02:37; Start 02/17/17 at 09:00 Sodium Chloride (Iv Sodium Chloride 0.9% 1000ml Bag) 1,000 ml @ 1,000 mls/hr 1X ONCE IV Last administered on 02/17/17 08:57; Start 02/17/17 at 09:00; Stop 02/17/17 at 09:59; Status DC Heparin Sodium (Porcine) (Heparin Sodium) 10,000 unit STK-MED ONCE .ROUTE ; Start 02/17/17 at 09:23; Stop 02/17/17 at 09:24; Status DC Lidocaine/Sodium Bicarbonate 20 ml 20 ml STK-MED ONCE IJ ; Start 02/17/17 at 09: 23; Stop 02/17/17 at 09:24; Status DC Heparin Sodium/ Sodium Chloride 500 ml @ As Directed STK-MED ONCE .ROUTE ; Start 02/17/17 at 09:23; Stop 02/17/17 at 09:24; Status DC Lidocaine/Sodium Bicarbonate (Buffered Lidocaine 1%) 3 ml 1X ONCE IJ ; Start at 09:30; Stop 02/17/17 at 09:35; Status DC Heparin Sodium/ Sodium Chloride 60 unit 1X ONCE IV ; Start 02/17/17 at 09:30; Stop 02/17/17 at 09:35; Status DC Heparin Sodium (Porcine) (Heparin Sodium) 2,500 unit 1X ONCE INT CAT ; Start at 09:30; Stop 02/17/17 at 09:35; Status DC Sodium Bicarbonate 50 meq STK-MED ONCE .ROUTE ; Start 02/17/17 at 09:42; Stop at 09:43; Status DC Sodium Bicarbonate 100 meq 100 meq 1X ONCE IV Last administered on 02/17/17 09:51; Start 02/17/17 at 09:45; Stop 02/17/17 at 09:48; Status DC Sodium Bicarbonate 150 meq/Dextrose 1,150 ml @ 150 mls/hr Q7H40M IV Last administered on 02/17/17 10:34; Start 02/17/17 at 09:45; Stop 02/17/17 at 18:05 ; Status DC Vasopressin/ Dextrose (Vasostrict) 102 ml @ 6 mls/hr ONCE ONCE IV Last administered on 02/17/17 10:34; Start 02/17/17 at 10:00; Stop 02/18/17 at 02:59 ; Status DC Hydrocortisone Sodium Succinate (Solu-Cortef) 100 mg Q8HRS IV ; Start 02/17/17 at 10:30; Stop 02/17/17 at 10:30; Status DC Vancomycin HCl (Vanco Per Pharmacy) 1 each PRN DAILY PRN MC SEE COMMENTS Last administered on 02/17/17 10:28; Start 02/17/17 at 10:15; Stop 02/18/17 at 12:50 ; Status DC Lidocaine/Sodium Bicarbonate (Buffered Lidocaine 1%) 3 ml 1X ONCE IJ ; Start at 10:15; Stop 02/17/17 at 10:16; Status DC Heparin Sodium/ Sodium Chloride 60 unit 1X ONCE IV ; Start 02/17/17 at 10:15; Stop 02/17/17 at 10:16; Status DC Heparin Sodium (Porcine) (Heparin Sodium) 2,500 unit 1X ONCE INT CAT ; Start at 10:15; Stop 02/17/17 at 10:16; Status DC Hydrocortisone Sodium Succinate 100 mg 100 mg ONCE ONCE IV Last administered on 02/17/17 10:36; Start 02/17/17 at 10:30; Stop 02/17/17 at 10:31; Status DC Vasopressin 40 unit/Dextrose 102 ml @ 6 mls/hr CONT PRN IV SEE I/O RECORD Last administered on 02/18/17 13:53; Start 02/17/17 at 10:15 Vancomycin HCl/ Sodium Chloride (Iv Sodium Chloride 0.9% 500ml Bag) 500 ml @ 250 mls/hr ONCE ONCE IV Last administered on 02/17/17 13:53; Start 02/17/17 at 10:30; Stop 02/17/17 at 12:29; Status DC Hydrocortisone Sodium Succinate (Solu-Cortef) 100 mg Q8HRS IV Last administered on 02/22/17 05:10; Start 02/17/17 at 14:00 Vancomycin HCl 1 each 1X ONCE MC ; Start 02/19/17 at 10:30; Stop 02/19/17 at 10 :30; Status DC Chlorhexidine Gluconate 15 ml 15 ml BID SWSP Last administered on 02/22/17 10: 00; Start 02/17/17 at 21:00 Sodium Chloride 1,000 ml @ 100 mls/hr Q10H IV Last administered on 02/17/17 13:53; Start 02/17/17 at 12:15; Stop 02/17/17 at 18:58; Status DC Sodium Chloride (Iv Sodium Chloride 0.9% 1000ml Bag) 1,000 ml @ 1,000 mls/hr Q1H PRN IV hypotension; Start 02/17/17 at 12:28; Stop 02/17/17 at 18:27; Status DC Sodium Chloride (Normal Saline Flush) 10 ml 1X PRN PRN IV AP catheter pack; Start 02/17/17 at 12:30; Stop 02/18/17 at 12:29; Status DC Sodium Chloride (Normal Saline Flush) 10 ml 1X PRN PRN IV [employer]MENT [employer] catheter pack; Start 02/17/17 at 12:30; Stop 02/18/17 at 12:29; Status DC Info (PHARMACY MONITORING -- do not chart) 1 each PRN DAILY PRN MC SEE COMMENTS ; Start 02/17/17 at 12:30 Info (PHARMACY MONITORING -- do not chart) 1 each PRN DAILY PRN MC SEE COMMENTS ; Start 02/17/17 at 12:30; Status UNV Pantoprazole Sodium 40 mg 40 mg DAILY IVP Last administered on 02/22/17 10:00 ; Start 02/18/17 at 09:00 Albumin Human 50 ml @ 50 mls/hr 1X ONCE IV Last administered on 02/17/17 18: 58; Start 02/17/17 at 18:45; Stop 02/17/17 at 19:44; Status DC Sodium Chloride 1,000 ml @ 125 mls/hr 1X ONCE IV ; Start 02/17/17 at 18:45; Stop 02/18/17 at 09:15; Status DC Sodium Chloride 1,000 ml @ 125 mls/hr Q8H IV Last administered on 02/18/17 05 :42; Start 02/17/17 at 19:00; Stop 02/18/17 at 09:15; Status DC Sodium Chloride 1,000 ml @ 1,000 mls/hr Q1H PRN IV hypotension; Start 02/18/17 at 07:47; Stop 02/18/17 at 13:46; Status DC Albumin Human (Albuminar) 200 ml @ 200 mls/hr 1X PRN PRN IV Hypotension; Start 02/18/17 at 08:00; Stop 02/18/17 at 13:59; Status DC Acetaminophen (Tylenol) 500 mg 1X PRN PRN PO MILD PAIN / TEMP; Start 02/18/17 at 08:00; Stop 02/19/17 at 07:59; Status DC Diphenhydramine HCl (Benadryl) 25 mg 1X PRN PRN IV ITCHING; Start 02/18/17 at 08:00; Stop 02/19/17 at 07:59; Status DC Diphenhydramine HCl (Benadryl) 25 mg 1X PRN PRN IV ITCHING; Start 02/18/17 at 08:00; Stop 02/19/17 at 07:59; Status DC Labetalol HCl (Normodyne) 10 mg PRN Q1HR PRN IVP SBP > 180; Start 02/18/17 at 08:00; Stop 02/19/17 at 07:59; Status DC Clonidine HCl 0.1 mg 0.1 mg 1X PRN PRN PO SBP > 180; Start 02/18/17 at 08:00; Stop 02/19/17 at 07:59; Status DC Sodium Chloride (Iv Sodium Chloride 0.9% 1000ml Bag) 1,000 ml @ 400 mls/hr Q2H30M PRN IV PATENCY; Start 02/18/17 at 07:47; Stop 02/18/17 at 19:46; Status DC Info 1 each 1 each PRN DAILY PRN MC SEE COMMENTS; Start 02/18/17 at 08:00; Status UNV Magnesium Sulfate/ Dextrose 50 ml @ 25 mls/hr PRN DAILY PRN IV for Mag < 1.7 on am labs Last administered on 02/18/17 11:16; Start 02/18/17 at 08:00 Propofol 100 ml @ As Directed STK-MED ONCE IV ; Start 02/18/17 at 11:47; Stop 02/18/17 at 11:48; Status DC Propofol (Diprivan) 100 ml @ 0 mls/hr CONT PRN IV SEE I/O RECORD Last administered on 02/22/17 12:07; Start 02/18/17 at 12:45 Insulin Aspart (Novolog) 0-7 UNITS Q6HRS SQ Last administered on 02/22/17 12: 20; Start 02/19/17 at 00:00 Dextrose 12.5 gm 12.5 gm PRN Q15MIN PRN IV SEE COMMENTS; Start 02/18/17 at 21: 00 Magnesium Sulfate/ Dextrose 50 ml @ 25 mls/hr PRN DAILY PRN IV for Mag < 1.7 on am labs; Start 02/19/17 at 07:45; Stop 02/19/17 at 10:20; Status DC Potassium Chloride 50 ml @ 50 mls/hr PRN Q6HRS PRN IV For K < 3.7; Start at 07:45 Potassium Chloride 50 ml @ 50 mls/hr PRN Q2HR PRN IV total of 40mEq for K < 3.5 Last administered on 02/22/17 12:11; Start 02/19/17 at 07:45 Calcium Chloride 2000 mg/Sodium Chloride 120 ml @ 240 mls/hr 1X ONCE IV ; Start 02/19/17 at 08:00; Stop 02/19/17 at 08:29; Status DC Albumin Human (Albuminar) 100 ml @ 100 mls/hr TID IV Last administered on 02/20 20:51; Start 02/19/17 at 09:00; Stop 02/20/17 at 21:59; Status DC Bupropion HCl (Wellbutrin) 75 mg BID NG Last administered on 02/22/17 10:03; Start 02/19/17 at 12:00 Citalopram Hydrobromide 20 mg 20 mg DAILY NG Last administered on 02/22/17 10: 01; Start 02/19/17 at 12:00 Heparin Sodium/ Dextrose 500 ml @ 20 mls/hr CONT PRN IV SEE I/O RECORD Last administered on 02/21/17 17:26; Start 02/19/17 at 13:15 Info 1 each 1 each PRN DAILY PRN MC SEE COMMENTS Last administered on 16:11; Start 02/20/17 at 07:45 Potassium Chloride (KCl Premix 20meq) 50 ml @ 50 mls/hr Q1HR IV Last administered on 02/20/17 09:48; Start 02/20/17 at 09:00; Stop 02/20/17 at 10:59 ; Status DC Metoprolol Tartrate (Lopressor) 2.5 mg 1X ONCE IVP Last administered on 14:19; Start 02/20/17 at 14:00; Stop 02/20/17 at 14:01; Status DC Metoprolol Tartrate (Lopressor) 2.5 mg Q6HRS IVP Last administered on 12:07; Start 02/20/17 at 14:00 Albuterol/ Ipratropium (Duoneb) 3 ml RTQID NEB Last administered on 02/22/17 11:58; Start 02/21/17 at 12:00 Insulin Detemir (Levemir) 10 units QHS SQ Last administered on 02/21/17 21:03 ; Start 02/21/17 at 21:00 Active Scripts Active [place] 7.5-325 Tablet (Acetaminophen/Hydrocodone Bitart) 1 Each Tablet 1 Tab PO PRN Q6HRS PRN Reported Requip (Ropinirole Hcl) 1 Mg Tablet 4 Mg PO DAILY Aspir 81 (Aspirin) 81 Mg Tablet.dr 81 Mg PO DAILY Wellbutrin Sr (Bupropion Hcl) 150 Mg Tablet.er 150 Mg PO DAILY Toprol Xl (Metoprolol Succinate) 25 Mg Tab.er.24h 12 Mg PO DAILY Lasix (Furosemide) 40 Mg Tablet 40 Mg PO DAILY Pravastatin Sodium 40 Mg Tablet 40 Mg PO DAILY Pantoprazole Sodium 40 Mg Tablet.dr 40 Mg PO DAILY Doxycycline Hyclate 100 Mg Capsule 1 Cap PO BID Hydrocodone-Apap 5-325 (Hydrocodone Bit/Acetaminophen) 1 Each Tablet 1-2 Tab PO Q4-6HRS PRN Levothyroxine Sodium 75 Mcg Tablet 1 Tab PO DAILY Citalopram Hbr (Citalopram Hydrobromide) 20 Mg Tablet 20 Mg PO DAILY Losartan Potassium 50 Mg Tablet 50 Mg PO DAILY Metformin Hcl 500 Mg Tablet 1 Tab PO TIDWMEALS Vitals/I & O Vital Sign - Last 24 Hours 02/21/17 02/21/17 02/21/17 02/21/17 13:20 14:00 15:00 15:51 Pulse 82 80 79 Resp 15 16 15 B/P 135/86 112/78 100/81 Pulse Ox 97 97 96 96 O2 Delivery Ventilator Ventilator Ventilator Ventilator 02/21/17 02/21/17 02/21/17 02/21/17 16:00 16:00 17:04 17:09 Temp 97.5 97.5 Pulse 77 Resp 15 B/P 171/73 119/74 Pulse Ox 96 96 O2 Delivery Mechanical Ventilator Ventilator Ventilator 02/21/17 02/21/17 02/21/17 02/21/17 17:25 18:07 19:00 19:54 Pulse 85 74 80 Resp 16 16 B/P 155/105 152/98 141/71 Pulse Ox 96 97 97 O2 Delivery Ventilator Ventilator Ventilator 02/21/17 02/21/17 02/21/17 02/21/17 20:00 20:00 20:00 21:00 Temp 98.6 98.6 Pulse 81 79 Resp 16 18 B/P 181/90 163/85 Pulse Ox 97 O2 Delivery Mechanical Ventilator Ventilator Ventilator 02/21/17 02/21/17 02/21/17 02/21/17 21:00 22:00 22:05 23:00 Pulse 72 73 68 Resp 16 16 16 B/P 114/50 125/59 120/61 Pulse Ox 97 96 97 97 O2 Delivery Ventilator Ventilator Ventilator Ventilator 02/21/17 02/22/17 02/22/17 02/22/17 23:59 00:00 00:00 00:10 Temp 98.5 98.5 Pulse 80 65 Resp 16 B/P 132/66 127/67 Pulse Ox 97 97 O2 Delivery Mechanical Ventilator Ventilator Ventilator 02/22/17 02/22/17 02/22/17 02/22/17 00:15 01:00 02:00 02:05 Pulse 73 67 69 Resp 16 14 B/P 161/77 123/67 139/68 Pulse Ox 97 98 97 O2 Delivery Ventilator Ventilator Ventilator 02/22/17 02/22/17 02/22/17 02/22/17 02:37 03:00 03:07 04:00 Pulse 67 69 Resp 18 14 14 B/P 122/60 122/62 Pulse Ox 98 O2 Delivery Ventilator Ventilator Ventilator 02/22/17 02/22/17 02/22/17 02/22/17 04:00 04:00 04:45 05:00 Temp 98.2 98.2 Pulse 69 64 Resp 14 14 B/P 126/62 118/62 Pulse Ox 97 97 98 O2 Delivery Ventilator Mechanical Ventilator Ventilator Ventilator 02/22/17 02/22/17 02/22/17 02/22/17 05:10 06:00 07:00 07:21 Pulse 72 66 73 Resp 14 14 B/P 125/60 124/60 162/81 Pulse Ox 97 99 96 O2 Delivery Ventilator Ventilator Ventilator 02/22/17 02/22/17 02/22/17 02/22/17 08:00 08:00 08:00 09:00 Temp 97.8 97.8 Pulse 72 72 82 Resp 14 14 B/P 170/80 170/80 180/88 Pulse Ox 99 96 O2 Delivery Ventilator Mechanical Ventilator Ventilator 02/22/17 02/22/17 02/22/17 02/22/17 10:00 11:00 11:58 12:00 Pulse 80 90 73 Resp 14 14 B/P 170/82 206/102 121/61 Pulse Ox 97 97 97 O2 Delivery Ventilator Ventilator Ventilator 02/22/17 02/22/17 02/22/17 12:00 12:00 12:07 Temp 97.8 97.8 Pulse 72 82 Resp 14 B/P 170/80 158/77 Pulse Ox 99 O2 Delivery Ventilator Mechanical Ventilator Intake and Output 02/21/17 02/21/17 02/22/17 15:00 23:00 07:00 Intake Total 310 ml 663 ml 1459 ml Output Total 355 ml 495 ml 455 ml Balance -45 ml 168 ml 1004 ml Nutrition Consultation Dietary Evaluation: Comments: Rec. TF's with Peptamen AF, goal rate 55 ml/hr start at 15 ml/hr, increase by 15 ml/hr q8h to goal rate flushes PRN while on IVF's Expected Outcomes/Goals: Tolerate TF's at goal rate Malnutrition Findings: Reduced Executive Personal Assistant Strength: N/A Malnutrition related to morbid: No Weight Status: Obese OLIVIA MIR III DO Feb 22, 2017 12:55
--- NOTE | 2017-02-22 13:05 | PDOC ---
CARDIOLOGY PROGRESS NOTE SUBJECTIVE: No acute events. Failed extubation trial. Transient HTN OBJECTIVE: Vital SIgns: Vital Signs Date Time Temp Pulse Resp B/P Pulse Ox O2 Delivery O2 Flow Rate FiO2 02/22/17 12:07 82 158/77 02/22/17 12:00 Mechanical Ventilator 02/22/17 12:00 97.8 14 99 97.8 I & O +2L over last 24 hours. Objective: Gen: Sedated. HEENT: NC/AT. vent in place CV: RRR PULM: Decreased breath sounds bilaterally ABD Soft NT/ND+BS EXT: No edema. NEURO: no posturing. CURRENT MEDICATIONS: hep gtt metop iv q 6 hrs DIAGNOSTIC TESTING: Cr 1.4, K 3.4, Hgb 10.1, Plt 110 7.45/44/95 ASSESSMENT: 1. Acute diastolic HF 2. NSTEMI - peak trop 31 3. HTN 4. Acute resp failure Problems: PLAN: 1. Continue low dose b-calvin 2. Start ASA 81mg daily, Statin held due to shock liver. 3. BP spikes to be addressed with IV NTG gtt for stabilization during extubation. Will follow along and plan for cardiac cath if renal fxn stable next week. YESICA PARIKH MD Feb 22, 2017 13:05
[2017-02-22] MEDS: ANTI-COAG MONITOR BY PHARMACY. MC PRN (13:42)
--- NOTE | 2017-02-22 17:06 | PDOC ---
PULMONARY PROGRESS NOTES Subjective PT SEDATED Vitals Vital Signs Date Time Temp Pulse Resp B/P Pulse Ox O2 Delivery O2 Flow Rate FiO2 02/22/17 16:04 97 Ventilator 02/22/17 16:00 98.0 80 14 142/70 98.0 Lungs: Clear, Other (No chest retractions were present.) Cardiovascular: S1, S2 Abdomen: Soft Extremities: No Edema Skin: Warm Labs Laboratory Tests Test 02/20/17 17:47 02/21/17 00:20 02/21/17 05:20 02/21/17 05:57 Glucose (Fingerstick) 279mg/dL (70-99) 318mg/dL (70-99) 342mg/dL (70-99) White Blood Count 6.8x10^3/uL (4.0-11.0) Red Blood Count 4.16x10^6/uL (3.50-5.40) Hemoglobin 10.1g/dL (12.0-15.5) Hematocrit 31.2% (36.0-47.0) Mean Corpuscular Volume 75fL (79-100) Mean Corpuscular Hemoglobin 24pg (25-35) Mean Corpuscular Hemoglobin Concent 33g/dL (31-37) Red Cell Distribution Width 22.3% (11.5-14.5) Platelet Count 111x10^3/uL (140-400) Neutrophils (%) (Auto) 89% (31-73) Lymphocytes (%) (Auto) 4% (24-48) Monocytes (%) (Auto) 6% (0-9) Eosinophils (%) (Auto) 0% (0-3) Basophils (%) (Auto) 0% (0-3) Neutrophils # (Auto) 6.1x10^3uL (1.8-7.7) Lymphocytes # (Auto) 0.3x10^3/uL (1.0-4.8) Monocytes # (Auto) 0.4x10^3/uL (0.0-1.1) Eosinophils # (Auto) 0.0x10^3/uL (0.0-0.7) Basophils # (Auto) 0.0x10^3/uL (0.0-0.2) Sodium Level 136mmol/L (136-145) Potassium Level 3.8mmol/L (3.5-5.1) Chloride Level 98mmol/L (98-107) Carbon Dioxide Level 29mmol/L (21-32) Anion Gap 9 (6-14) Blood Urea Nitrogen 53mg/dL (7-20) Creatinine 1.4mg/dL (0.6-1.0) Estimated GFR (Cockcroft-Gault) 38.1 Glucose Level 330mg/dL (70-99) Calcium Level 8.8mg/dL (8.5-10.1) Phosphorus Level 3.0mg/dL (2.6-4.7) Magnesium Level 2.3mg/dL (1.8-2.4) Creatine Kinase 280U/L (26-192) Albumin 3.8g/dL (3.4-5.0) Test 02/21/17 07:00 02/21/17 07:45 02/21/17 11:39 02/21/17 11:40 Heparin Anti-Xa Act, Unfractionated 0.57IU/mL (0.30-0.70) O2 Saturation 97% (92-99) 93% (92-99) Arterial Blood pH 7.48 (7.35-7.45) 7.43 (7.35-7.45) Arterial Blood pCO2 at Patient Temp 37mmHg (35-46) 39mmHg (35-46) Arterial Blood pO2 at Patient Temp 91mmHg (65-108) 71mmHg (65-108) Arterial Blood HCO3 27mmol/L (21-28) 25mmol/L (21-28) Arterial Blood Base Excess 4mmol/L (-3-3) 1mmol/L (-3-3) FiO2 40 40 Glucose (Fingerstick) 354mg/dL (70-99) Test 02/21/17 17:36 02/21/17 21:02 02/22/17 00:16 02/22/17 05:15 Glucose (Fingerstick) 342mg/dL (70-99) 277mg/dL (70-99) 259mg/dL (70-99) 314mg/dL (70-99) Test 02/22/17 05:30 02/22/17 07:30 02/22/17 12:14 White Blood Count 6.9x10^3/uL (4.0-11.0) Red Blood Count 4.28x10^6/uL (3.50-5.40) Hemoglobin 10.1g/dL (12.0-15.5) Hematocrit 32.9% (36.0-47.0) Mean Corpuscular Volume 77fL (79-100) Mean Corpuscular Hemoglobin 24pg (25-35) Mean Corpuscular Hemoglobin Concent 31g/dL (31-37) Red Cell Distribution Width 22.6% (11.5-14.5) Platelet Count 110x10^3/uL (140-400) Neutrophils (%) (Auto) 87% (31-73) Lymphocytes (%) (Auto) 6% (24-48) Monocytes (%) (Auto) 7% (0-9) Eosinophils (%) (Auto) 0% (0-3) Basophils (%) (Auto) 0% (0-3) Neutrophils # (Auto) 6.0x10^3uL (1.8-7.7) Lymphocytes # (Auto) 0.4x10^3/uL (1.0-4.8) Monocytes # (Auto) 0.5x10^3/uL (0.0-1.1) Eosinophils # (Auto) 0.0x10^3/uL (0.0-0.7) Basophils # (Auto) 0.0x10^3/uL (0.0-0.2) Heparin Anti-Xa Act, Unfractionated 0.54IU/mL (0.30-0.70) Sodium Level 139mmol/L (136-145) Potassium Level 3.4mmol/L (3.5-5.1) Chloride Level 100mmol/L (98-107) Carbon Dioxide Level 31mmol/L (21-32) Anion Gap 8 (6-14) Blood Urea Nitrogen 52mg/dL (7-20) Creatinine 1.4mg/dL (0.6-1.0) Estimated GFR (Cockcroft-Gault) 38.1 Glucose Level 328mg/dL (70-99) Calcium Level 8.6mg/dL (8.5-10.1) Phosphorus Level 3.2mg/dL (2.6-4.7) Magnesium Level 2.0mg/dL (1.8-2.4) Creatine Kinase 127U/L (26-192) Albumin 3.3g/dL (3.4-5.0) O2 Saturation 97% (92-99) Arterial Blood pH 7.45 (7.35-7.45) Arterial Blood pCO2 at Patient Temp 44mmHg (35-46) Arterial Blood pO2 at Patient Temp 95mmHg (65-108) Arterial Blood HCO3 30mmol/L (21-28) Arterial Blood Base Excess 5mmol/L (-3-3) FiO2 40 Glucose (Fingerstick) 366mg/dL (70-99) Laboratory Tests Test 02/21/17 17:36 02/21/17 21:02 02/22/17 00:16 02/22/17 05:15 Glucose (Fingerstick) 342mg/dL (70-99) 277mg/dL (70-99) 259mg/dL (70-99) 314mg/dL (70-99) Test 02/22/17 05:30 02/22/17 07:30 02/22/17 12:14 White Blood Count 6.9x10^3/uL (4.0-11.0) Red Blood Count 4.28x10^6/uL (3.50-5.40) Hemoglobin 10.1g/dL (12.0-15.5) Hematocrit 32.9% (36.0-47.0) Mean Corpuscular Volume 77fL (79-100) Mean Corpuscular Hemoglobin 24pg (25-35) Mean Corpuscular Hemoglobin Concent 31g/dL (31-37) Red Cell Distribution Width 22.6% (11.5-14.5) Platelet Count 110x10^3/uL (140-400) Neutrophils (%) (Auto) 87% (31-73) Lymphocytes (%) (Auto) 6% (24-48) Monocytes (%) (Auto) 7% (0-9) Eosinophils (%) (Auto) 0% (0-3) Basophils (%) (Auto) 0% (0-3) Neutrophils # (Auto) 6.0x10^3uL (1.8-7.7) Lymphocytes # (Auto) 0.4x10^3/uL (1.0-4.8) Monocytes # (Auto) 0.5x10^3/uL (0.0-1.1) Eosinophils # (Auto) 0.0x10^3/uL (0.0-0.7) Basophils # (Auto) 0.0x10^3/uL (0.0-0.2) Heparin Anti-Xa Act, Unfractionated 0.54IU/mL (0.30-0.70) Sodium Level 139mmol/L (136-145) Potassium Level 3.4mmol/L (3.5-5.1) Chloride Level 100mmol/L (98-107) Carbon Dioxide Level 31mmol/L (21-32) Anion Gap 8 (6-14) Blood Urea Nitrogen 52mg/dL (7-20) Creatinine 1.4mg/dL (0.6-1.0) Estimated GFR (Cockcroft-Gault) 38.1 Glucose Level 328mg/dL (70-99) Calcium Level 8.6mg/dL (8.5-10.1) Phosphorus Level 3.2mg/dL (2.6-4.7) Magnesium Level 2.0mg/dL (1.8-2.4) Creatine Kinase 127U/L (26-192) Albumin 3.3g/dL (3.4-5.0) O2 Saturation 97% (92-99) Arterial Blood pH 7.45 (7.35-7.45) Arterial Blood pCO2 at Patient Temp 44mmHg (35-46) Arterial Blood pO2 at Patient Temp 95mmHg (65-108) Arterial Blood HCO3 30mmol/L (21-28) Arterial Blood Base Excess 5mmol/L (-3-3) FiO2 40 Glucose (Fingerstick) 366mg/dL (70-99) Medications Active Scripts Medications Dose Route/Sig Days Date Category Requip (Ropinirole Hcl) 1 Mg Tablet 4 Mg PO DAILY 02/14/17 Reported Aspir 81 (Aspirin) 81 Mg Tablet.dr 81 Mg PO DAILY 02/14/17 Reported Wellbutrin Sr (Bupropion Hcl) 150 Mg Tablet.er 150 Mg PO DAILY 02/14/17 Reported Toprol Xl (Metoprolol Succinate) 25 Mg Tab.er.24h 12 Mg PO DAILY 02/14/17 Reported Lasix (Furosemide) 40 Mg Tablet 40 Mg PO DAILY 02/14/17 Reported Pravastatin Sodium 40 Mg Tablet 40 Mg PO DAILY 02/14/17 Reported Pantoprazole Sodium 40 Mg Tablet.dr 40 Mg PO DAILY 02/14/17 Reported [place] 7.5-325 Tablet (Acetaminophen/Hydrocodone Bitart) 1 Each Tablet 1 Tab PO PRN Q6HRS PRN 12/06/14 Rx Doxycycline Hyclate 100 Mg Capsule 1 Cap PO BID 12/06/14 Reported Hydrocodone-Apap 5-325 (Hydrocodone Bit/Acetaminophen) 1 Each Tablet 1-2 Tab PO Q4-6HRS PRN 12/06/14 Reported Levothyroxine Sodium 75 Mcg Tablet 1 Tab PO DAILY 12/05/14 Reported Citalopram Hbr (Citalopram Hydrobromide) 20 Mg Tablet 20 Mg PO DAILY 12/05/14 Reported Losartan Potassium 50 Mg Tablet 50 Mg PO DAILY 12/05/14 Reported Metformin Hcl 500 Mg Tablet 1 Tab PO TIDWMEALS 12/05/14 Reported Impression . 1. Acute respiratory failure secondary to SEPTIC SHOCK 2. SEPTIC SHOCK 3. Acute renal failure 4. 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 Not been on chronic steroids. 5. Marked anion gap metabolic acidosis secondary to septic shock./renal failure 6. non-ST myocardial infarction. 7. Nutrition will start tube feeding 8. Abnormal cxr sec to pulmonary edema/ Pneumonia Plan . SPOKE WITH RN, MAY NEED TO EXTUBATE ON FRIDAY WITHOUT TRIAL PT VERY ANXIOUS ON TRIAL NO HD NEEDED FOR NOW REPEAT CXR IN AM 1. Decrease minute ventilation 2. Broad spectrum antibiotics, per ID 3. pressors off 4. Hemodialysis per nephro 5. Chest x-ray 6. Follow all culture results. 7. hold sedation, for trail 8. The patient's INR is already high and we will hold DVT prophylaxis. 9. Stress ulcer prophylaxis. 10. Hydrocortisone 100 mg IV q. 8 hours. 11. Echo report NOTED VITO Ferreira MD Feb 22, 2017 17:06
--- NOTE | 2017-02-22 17:27 | PDOC ---
Provider Note Provider Note RENAL F/U : MURIEL S : Doing better. No new issues reported. Intubated. O : VSS Afebrile. Neck : Supple Lungs : Non labored. CVS : RRR Abd : Benign appearing. No major distention. Ext: No edema. Neuro : Intubated. Labs and meds reviewed. A/P : ARF : Cr better/stable. ACUTE RESP FAILURE : Per pulmonary. SEPSIS : Better. CPM. Supportive care. Kathy Llamas M.D. KATHY LLAMAS MD Feb 22, 2017 17:27
[2017-02-22] MEDS: HEPARIN 25,000UTS/500ML PREMIX 500 ML IV PRN (17:53)
[2017-02-22] MEDS: INSULIN DETEMIR 300 UNITS/3 ML INSULN.PEN. SQ SCH (21:07)
--- NOTE | 2017-02-22 21:22 | PDOC ---
PROGRESS NOTES Chief Complaint Chief Complaint cc: Respiratory failure -Acute renal failure -NSTEMI -CAD -Septic shock -CABG -HLD -HTN -Tonsillectomy -Pulmonary fibrosis -FREDY -Obesity -Constipation -GERD -Breast excision -Tubal ligation -DM -Hypothyroidism -Anxiety -Smoking -Hepatitis A History of Present Illness History of Present Illness Ms. Betancourt was in bed when we visited, and her was once again present. She was on a ventilator, and the settings were A/C / 14 f / 500 VT / 40% FiO2 / 5 PEEP. She had mittens on.. She also had a wrist splint on her right arm, and the arterial line it was protecting showed a good waveform. The patient had heparin, KCl, PPN, and propofol hanging from the IV rack. Vitals Vitals Vital Signs Date Time Temp Pulse Resp B/P Pulse Ox O2 Delivery O2 Flow Rate FiO2 02/22/17 19:46 86 18 146/74 96 Ventilator 02/22/17 19:45 98.6 98.6 Physical Exam General: No acute distress, Other (This patient was on a ventilator.) Heart: Normal S1, Normal S2, No murmurs Lungs: Clear, Other (No chest retractions were present.) Abdomen: Soft, No masses Extremities: No cyanosis, Normal pulses Skin: No rashes, No significant lesion Labs LABS Laboratory Tests Test 02/22/17 00:16 02/22/17 05:15 02/22/17 05:30 02/22/17 07:30 Glucose (Fingerstick) 259mg/dL (70-99) 314mg/dL (70-99) White Blood Count 6.9x10^3/uL (4.0-11.0) Red Blood Count 4.28x10^6/uL (3.50-5.40) Hemoglobin 10.1g/dL (12.0-15.5) Hematocrit 32.9% (36.0-47.0) Mean Corpuscular Volume 77fL (79-100) Mean Corpuscular Hemoglobin 24pg (25-35) Mean Corpuscular Hemoglobin Concent 31g/dL (31-37) Red Cell Distribution Width 22.6% (11.5-14.5) Platelet Count 110x10^3/uL (140-400) Neutrophils (%) (Auto) 87% (31-73) Lymphocytes (%) (Auto) 6% (24-48) Monocytes (%) (Auto) 7% (0-9) Eosinophils (%) (Auto) 0% (0-3) Basophils (%) (Auto) 0% (0-3) Neutrophils # (Auto) 6.0x10^3uL (1.8-7.7) Lymphocytes # (Auto) 0.4x10^3/uL (1.0-4.8) Monocytes # (Auto) 0.5x10^3/uL (0.0-1.1) Eosinophils # (Auto) 0.0x10^3/uL (0.0-0.7) Basophils # (Auto) 0.0x10^3/uL (0.0-0.2) Heparin Anti-Xa Act, Unfractionated 0.54IU/mL (0.30-0.70) Sodium Level 139mmol/L (136-145) Potassium Level 3.4mmol/L (3.5-5.1) Chloride Level 100mmol/L (98-107) Carbon Dioxide Level 31mmol/L (21-32) Anion Gap 8 (6-14) Blood Urea Nitrogen 52mg/dL (7-20) Creatinine 1.4mg/dL (0.6-1.0) Estimated GFR (Cockcroft-Gault) 38.1 Glucose Level 328mg/dL (70-99) Calcium Level 8.6mg/dL (8.5-10.1) Phosphorus Level 3.2mg/dL (2.6-4.7) Magnesium Level 2.0mg/dL (1.8-2.4) Creatine Kinase 127U/L (26-192) Albumin 3.3g/dL (3.4-5.0) O2 Saturation 97% (92-99) Arterial Blood pH 7.45 (7.35-7.45) Arterial Blood pCO2 at Patient Temp 44mmHg (35-46) Arterial Blood pO2 at Patient Temp 95mmHg (65-108) Arterial Blood HCO3 30mmol/L (21-28) Arterial Blood Base Excess 5mmol/L (-3-3) FiO2 40 Test 02/22/17 12:14 02/22/17 17:52 Glucose (Fingerstick) 366mg/dL (70-99) 357mg/dL (70-99) Review of Systems Review of Systems unobtaiable Assessment and Plan Assessmemt and Plan Problems Medical Problems: (1) ARF (acute renal failure) Status: Acute (2) Cardiac failure Status: Acute (3) Hypoxia Status: Acute (4) Respiratory failure Status: Acute cc: Respiratory failure -Acute renal failure -NSTEMI -CAD -Septic shock -CABG -HLD -HTN -Tonsillectomy -Pulmonary fibrosis -FREDY -Obesity -Constipation -GERD -Breast excision -Tubal ligation -DM -Hypothyroidism -Anxiety -Smoking -Hepatitis A Plan Cont to wean Recheck labs Wound care Possible cath next week Increase Levemir Wound care OG feeds Propofol for sedation Problems: Comment Review of Relevant I have reviewed the following items trey (where applicable) has been applied. Labs Laboratory Tests Test 02/21/17 00:20 02/21/17 05:20 02/21/17 05:57 02/21/17 07:00 Glucose (Fingerstick) 318mg/dL (70-99) 342mg/dL (70-99) White Blood Count 6.8x10^3/uL (4.0-11.0) Red Blood Count 4.16x10^6/uL (3.50-5.40) Hemoglobin 10.1g/dL (12.0-15.5) Hematocrit 31.2% (36.0-47.0) Mean Corpuscular Volume 75fL (79-100) Mean Corpuscular Hemoglobin 24pg (25-35) Mean Corpuscular Hemoglobin Concent 33g/dL (31-37) Red Cell Distribution Width 22.3% (11.5-14.5) Platelet Count 111x10^3/uL (140-400) Neutrophils (%) (Auto) 89% (31-73) Lymphocytes (%) (Auto) 4% (24-48) Monocytes (%) (Auto) 6% (0-9) Eosinophils (%) (Auto) 0% (0-3) Basophils (%) (Auto) 0% (0-3) Neutrophils # (Auto) 6.1x10^3uL (1.8-7.7) Lymphocytes # (Auto) 0.3x10^3/uL (1.0-4.8) Monocytes # (Auto) 0.4x10^3/uL (0.0-1.1) Eosinophils # (Auto) 0.0x10^3/uL (0.0-0.7) Basophils # (Auto) 0.0x10^3/uL (0.0-0.2) Sodium Level 136mmol/L (136-145) Potassium Level 3.8mmol/L (3.5-5.1) Chloride Level 98mmol/L (98-107) Carbon Dioxide Level 29mmol/L (21-32) Anion Gap 9 (6-14) Blood Urea Nitrogen 53mg/dL (7-20) Creatinine 1.4mg/dL (0.6-1.0) Estimated GFR (Cockcroft-Gault) 38.1 Glucose Level 330mg/dL (70-99) Calcium Level 8.8mg/dL (8.5-10.1) Phosphorus Level 3.0mg/dL (2.6-4.7) Magnesium Level 2.3mg/dL (1.8-2.4) Creatine Kinase 280U/L (26-192) Albumin 3.8g/dL (3.4-5.0) Heparin Anti-Xa Act, Unfractionated 0.57IU/mL (0.30-0.70) Test 02/21/17 07:45 02/21/17 11:39 02/21/17 11:40 02/21/17 17:36 O2 Saturation 97% (92-99) 93% (92-99) Arterial Blood pH 7.48 (7.35-7.45) 7.43 (7.35-7.45) Arterial Blood pCO2 at Patient Temp 37mmHg (35-46) 39mmHg (35-46) Arterial Blood pO2 at Patient Temp 91mmHg (65-108) 71mmHg (65-108) Arterial Blood HCO3 27mmol/L (21-28) 25mmol/L (21-28) Arterial Blood Base Excess 4mmol/L (-3-3) 1mmol/L (-3-3) FiO2 40 40 Glucose (Fingerstick) 354mg/dL (70-99) 342mg/dL (70-99) Test 02/21/17 21:02 02/22/17 00:16 02/22/17 05:15 02/22/17 05:30 Glucose (Fingerstick) 277mg/dL (70-99) 259mg/dL (70-99) 314mg/dL (70-99) White Blood Count 6.9x10^3/uL (4.0-11.0) Red Blood Count 4.28x10^6/uL (3.50-5.40) Hemoglobin 10.1g/dL (12.0-15.5) Hematocrit 32.9% (36.0-47.0) Mean Corpuscular Volume 77fL (79-100) Mean Corpuscular Hemoglobin 24pg (25-35) Mean Corpuscular Hemoglobin Concent 31g/dL (31-37) Red Cell Distribution Width 22.6% (11.5-14.5) Platelet Count 110x10^3/uL (140-400) Neutrophils (%) (Auto) 87% (31-73) Lymphocytes (%) (Auto) 6% (24-48) Monocytes (%) (Auto) 7% (0-9) Eosinophils (%) (Auto) 0% (0-3) Basophils (%) (Auto) 0% (0-3) Neutrophils # (Auto) 6.0x10^3uL (1.8-7.7) Lymphocytes # (Auto) 0.4x10^3/uL (1.0-4.8) Monocytes # (Auto) 0.5x10^3/uL (0.0-1.1) Eosinophils # (Auto) 0.0x10^3/uL (0.0-0.7) Basophils # (Auto) 0.0x10^3/uL (0.0-0.2) Heparin Anti-Xa Act, Unfractionated 0.54IU/mL (0.30-0.70) Sodium Level 139mmol/L (136-145) Potassium Level 3.4mmol/L (3.5-5.1) Chloride Level 100mmol/L (98-107) Carbon Dioxide Level 31mmol/L (21-32) Anion Gap 8 (6-14) Blood Urea Nitrogen 52mg/dL (7-20) Creatinine 1.4mg/dL (0.6-1.0) Estimated GFR (Cockcroft-Gault) 38.1 Glucose Level 328mg/dL (70-99) Calcium Level 8.6mg/dL (8.5-10.1) Phosphorus Level 3.2mg/dL (2.6-4.7) Magnesium Level 2.0mg/dL (1.8-2.4) Creatine Kinase 127U/L (26-192) Albumin 3.3g/dL (3.4-5.0) Test 02/22/17 07:30 02/22/17 12:14 02/22/17 17:52 O2 Saturation 97% (92-99) Arterial Blood pH 7.45 (7.35-7.45) Arterial Blood pCO2 at Patient Temp 44mmHg (35-46) Arterial Blood pO2 at Patient Temp 95mmHg (65-108) Arterial Blood HCO3 30mmol/L (21-28) Arterial Blood Base Excess 5mmol/L (-3-3) FiO2 40 Glucose (Fingerstick) 366mg/dL (70-99) 357mg/dL (70-99) Laboratory Tests Test 02/22/17 00:16 02/22/17 05:15 02/22/17 05:30 02/22/17 07:30 Glucose (Fingerstick) 259mg/dL (70-99) 314mg/dL (70-99) White Blood Count 6.9x10^3/uL (4.0-11.0) Red Blood Count 4.28x10^6/uL (3.50-5.40) Hemoglobin 10.1g/dL (12.0-15.5) Hematocrit 32.9% (36.0-47.0) Mean Corpuscular Volume 77fL (79-100) Mean Corpuscular Hemoglobin 24pg (25-35) Mean Corpuscular Hemoglobin Concent 31g/dL (31-37) Red Cell Distribution Width 22.6% (11.5-14.5) Platelet Count 110x10^3/uL (140-400) Neutrophils (%) (Auto) 87% (31-73) Lymphocytes (%) (Auto) 6% (24-48) Monocytes (%) (Auto) 7% (0-9) Eosinophils (%) (Auto) 0% (0-3) Basophils (%) (Auto) 0% (0-3) Neutrophils # (Auto) 6.0x10^3uL (1.8-7.7) Lymphocytes # (Auto) 0.4x10^3/uL (1.0-4.8) Monocytes # (Auto) 0.5x10^3/uL (0.0-1.1) Eosinophils # (Auto) 0.0x10^3/uL (0.0-0.7) Basophils # (Auto) 0.0x10^3/uL (0.0-0.2) Heparin Anti-Xa Act, Unfractionated 0.54IU/mL (0.30-0.70) Sodium Level 139mmol/L (136-145) Potassium Level 3.4mmol/L (3.5-5.1) Chloride Level 100mmol/L (98-107) Carbon Dioxide Level 31mmol/L (21-32) Anion Gap 8 (6-14) Blood Urea Nitrogen 52mg/dL (7-20) Creatinine 1.4mg/dL (0.6-1.0) Estimated GFR (Cockcroft-Gault) 38.1 Glucose Level 328mg/dL (70-99) Calcium Level 8.6mg/dL (8.5-10.1) Phosphorus Level 3.2mg/dL (2.6-4.7) Magnesium Level 2.0mg/dL (1.8-2.4) Creatine Kinase 127U/L (26-192) Albumin 3.3g/dL (3.4-5.0) O2 Saturation 97% (92-99) Arterial Blood pH 7.45 (7.35-7.45) Arterial Blood pCO2 at Patient Temp 44mmHg (35-46) Arterial Blood pO2 at Patient Temp 95mmHg (65-108) Arterial Blood HCO3 30mmol/L (21-28) Arterial Blood Base Excess 5mmol/L (-3-3) FiO2 40 Test 02/22/17 12:14 02/22/17 17:52 Glucose (Fingerstick) 366mg/dL (70-99) 357mg/dL (70-99) Microbiology 02/18/17 Urine Culture - Final, Complete 02/18/17 Urine Culture Result 1 (NORBERTO) - Final, Complete Medications Current Medications Sodium Polystyrene Sulfonate (Kayexalate) 30 gm 1X ONCE PO Last administered on 02/17/17 03:54; Start 02/17/17 at 02:45; Stop 02/17/17 at 02:46; Status DC Ondansetron HCl (Zofran) 4 mg PRN Q6HRS PRN IV NAUSEA/VOMITING; Start 02/17/17 at 02:00 Pantoprazole Sodium (Protonix Vial) 40 mg TID IVP Last administered on 08:56; Start 02/17/17 at 09:00; Stop 02/17/17 at 13:17; Status DC Acetaminophen 650 mg 650 mg PRN Q6HRS PRN PO FEVER; Start 02/17/17 at 02:00 Midazolam HCl 100 ml @ 0 mls/hr CONT PRN IV SEE I/O RECORD Last administered on 02/17/17 20:34; Start 02/17/17 at 02:30 Levothyroxine Sodium 37.5 mcg/ Sodium Chloride 5 ml @ 100 mls/hr DAILY IVP Last administered on 02/22/17 10:00; Start 02/17/17 at 09:00 Sodium Chloride 1,000 ml @ 100 mls/hr 1X ONCE IV Last administered on 04:25; Start 02/17/17 at 04:30; Stop 02/17/17 at 11:25; Status DC Sodium Chloride (Iv Sodium Chloride 0.9% 1000ml Bag) 1,000 ml @ 100 mls/hr 1X ONCE IV Last administered on 02/17/17 04:25; Start 02/17/17 at 04:30; Stop at 09:15; Status DC Pneumococcal Polyvalent Vaccine (Do NOT chart on this placeholder) 1 each 1X ONCE MC ; Start 02/17/17 at 06:00; Stop 02/17/17 at 06:01; Status UNV Pneumococcal Polyvalent Vaccine 0.5 ml 0.5 ml ONCE ONCE VAX IM ; Start 02/17/17 at 09:00; Stop 02/17/17 at 09:01; Status DC Norepinephrine Bitartrate 250 ml @ 0 mls/hr CONT PRN IV SEE I/O RECORD Last administered on 02/18/17 11:15; Start 02/17/17 at 06:15 Sodium Chloride 1,000 ml @ 1,000 mls/hr 1X ONCE IV Last administered on 08:56; Start 02/17/17 at 08:15; Stop 02/17/17 at 09:14; Status DC Piperacillin Sod/ Tazobactam Sod 2.25 gm/Sodium Chloride 50 ml @ 100 mls/hr Q8HRS IV Last administered on 02/22/17 15:34; Start 02/17/17 at 08:45 Magnesium Sulfate/ Dextrose (Magnesium Sulfate PREMIX 2GM) 50 ml @ 25 mls/hr 1X ONCE IV Last administered on 02/17/17 09:30; Start 02/17/17 at 09:00; Stop 02/17/17 at 10:59; Status DC Fentanyl Citrate 50 mcg 50 mcg PRN Q2HR PRN IV PAIN Last administered on 02:37; Start 02/17/17 at 09:00 Sodium Chloride (Iv Sodium Chloride 0.9% 1000ml Bag) 1,000 ml @ 1,000 mls/hr 1X ONCE IV Last administered on 02/17/17 08:57; Start 02/17/17 at 09:00; Stop 02/17/17 at 09:59; Status DC Heparin Sodium (Porcine) (Heparin Sodium) 10,000 unit STK-MED ONCE .ROUTE ; Start 02/17/17 at 09:23; Stop 02/17/17 at 09:24; Status DC Lidocaine/Sodium Bicarbonate 20 ml 20 ml STK-MED ONCE IJ ; Start 02/17/17 at 09: 23; Stop 02/17/17 at 09:24; Status DC Heparin Sodium/ Sodium Chloride 500 ml @ As Directed STK-MED ONCE .ROUTE ; Start 02/17/17 at 09:23; Stop 02/17/17 at 09:24; Status DC Lidocaine/Sodium Bicarbonate (Buffered Lidocaine 1%) 3 ml 1X ONCE IJ ; Start at 09:30; Stop 02/17/17 at 09:35; Status DC Heparin Sodium/ Sodium Chloride 60 unit 1X ONCE IV ; Start 02/17/17 at 09:30; Stop 02/17/17 at 09:35; Status DC Heparin Sodium (Porcine) (Heparin Sodium) 2,500 unit 1X ONCE INT CAT ; Start at 09:30; Stop 02/17/17 at 09:35; Status DC Sodium Bicarbonate 50 meq STK-MED ONCE .ROUTE ; Start 02/17/17 at 09:42; Stop at 09:43; Status DC Sodium Bicarbonate 100 meq 100 meq 1X ONCE IV Last administered on 02/17/17 09:51; Start 02/17/17 at 09:45; Stop 02/17/17 at 09:48; Status DC Sodium Bicarbonate 150 meq/Dextrose 1,150 ml @ 150 mls/hr Q7H40M IV Last administered on 02/17/17 10:34; Start 02/17/17 at 09:45; Stop 02/17/17 at 18:05 ; Status DC Vasopressin/ Dextrose (Vasostrict) 102 ml @ 6 mls/hr ONCE ONCE IV Last administered on 02/17/17 10:34; Start 02/17/17 at 10:00; Stop 02/18/17 at 02:59 ; Status DC Hydrocortisone Sodium Succinate (Solu-Cortef) 100 mg Q8HRS IV ; Start 02/17/17 at 10:30; Stop 02/17/17 at 10:30; Status DC Vancomycin HCl (Vanco Per Pharmacy) 1 each PRN DAILY PRN MC SEE COMMENTS Last administered on 02/17/17 10:28; Start 02/17/17 at 10:15; Stop 02/18/17 at 12:50 ; Status DC Lidocaine/Sodium Bicarbonate (Buffered Lidocaine 1%) 3 ml 1X ONCE IJ ; Start at 10:15; Stop 02/17/17 at 10:16; Status DC Heparin Sodium/ Sodium Chloride 60 unit 1X ONCE IV ; Start 02/17/17 at 10:15; Stop 02/17/17 at 10:16; Status DC Heparin Sodium (Porcine) (Heparin Sodium) 2,500 unit 1X ONCE INT CAT ; Start at 10:15; Stop 02/17/17 at 10:16; Status DC Hydrocortisone Sodium Succinate 100 mg 100 mg ONCE ONCE IV Last administered on 02/17/17 10:36; Start 02/17/17 at 10:30; Stop 02/17/17 at 10:31; Status DC Vasopressin 40 unit/Dextrose 102 ml @ 6 mls/hr CONT PRN IV SEE I/O RECORD Last administered on 02/18/17 13:53; Start 02/17/17 at 10:15 Vancomycin HCl/ Sodium Chloride (Iv Sodium Chloride 0.9% 500ml Bag) 500 ml @ 250 mls/hr ONCE ONCE IV Last administered on 02/17/17 13:53; Start 02/17/17 at 10:30; Stop 02/17/17 at 12:29; Status DC Hydrocortisone Sodium Succinate (Solu-Cortef) 100 mg Q8HRS IV Last administered on 02/22/17 15:34; Start 02/17/17 at 14:00 Vancomycin HCl 1 each 1X ONCE MC ; Start 02/19/17 at 10:30; Stop 02/19/17 at 10 :30; Status DC Chlorhexidine Gluconate 15 ml 15 ml BID SWSP Last administered on 02/22/17 10: 00; Start 02/17/17 at 21:00 Sodium Chloride 1,000 ml @ 100 mls/hr Q10H IV Last administered on 02/17/17 13:53; Start 02/17/17 at 12:15; Stop 02/17/17 at 18:58; Status DC Sodium Chloride (Iv Sodium Chloride 0.9% 1000ml Bag) 1,000 ml @ 1,000 mls/hr Q1H PRN IV hypotension; Start 02/17/17 at 12:28; Stop 02/17/17 at 18:27; Status DC Sodium Chloride (Normal Saline Flush) 10 ml 1X PRN PRN IV AP catheter pack; Start 02/17/17 at 12:30; Stop 02/18/17 at 12:29; Status DC Sodium Chloride (Normal Saline Flush) 10 ml 1X PRN PRN IV 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; Start 02/17/17 at 12:30; Stop 02/18/17 at 12:29; Status DC Info (PHARMACY MONITORING -- do not chart) 1 each PRN DAILY PRN MC SEE COMMENTS ; Start 02/17/17 at 12:30 Info (PHARMACY MONITORING -- do not chart) 1 each PRN DAILY PRN MC SEE COMMENTS ; Start 02/17/17 at 12:30; Status UNV Pantoprazole Sodium 40 mg 40 mg DAILY IVP Last administered on 02/22/17 10:00 ; Start 02/18/17 at 09:00 Albumin Human 50 ml @ 50 mls/hr 1X ONCE IV Last administered on 02/17/17 18: 58; Start 02/17/17 at 18:45; Stop 02/17/17 at 19:44; Status DC Sodium Chloride 1,000 ml @ 125 mls/hr 1X ONCE IV ; Start 02/17/17 at 18:45; Stop 02/18/17 at 09:15; Status DC Sodium Chloride 1,000 ml @ 125 mls/hr Q8H IV Last administered on 02/18/17t 05 :42; Start 02/17/17 at 19:00; Stop 02/18/17 at 09:15; Status DC Sodium Chloride 1,000 ml @ 1,000 mls/hr Q1H PRN IV hypotension; Start 02/18/17 at 07:47; Stop 02/18/17 at 13:46; Status DC Albumin Human (Albuminar) 200 ml @ 200 mls/hr 1X PRN PRN IV Hypotension; Start 02/18/17 at 08:00; Stop 02/18/17 at 13:59; Status DC Acetaminophen (Tylenol) 500 mg 1X PRN PRN PO MILD PAIN / TEMP; Start 02/18/17 at 08:00; Stop 02/19/17 at 07:59; Status DC Diphenhydramine HCl (Benadryl) 25 mg 1X PRN PRN IV ITCHING; Start 02/18/17 at 08:00; Stop 02/19/17 at 07:59; Status DC Diphenhydramine HCl (Benadryl) 25 mg 1X PRN PRN IV ITCHING; Start 02/18/17 at 08:00; Stop 02/19/17 at 07:59; Status DC Labetalol HCl (Normodyne) 10 mg PRN Q1HR PRN IVP SBP > 180; Start 02/18/17 at 08:00; Stop 02/19/17 at 07:59; Status DC Clonidine HCl 0.1 mg 0.1 mg 1X PRN PRN PO SBP > 180; Start 02/18/17 at 08:00; Stop 02/19/17 at 07:59; Status DC Sodium Chloride (Iv Sodium Chloride 0.9% 1000ml Bag) 1,000 ml @ 400 mls/hr Q2H30M PRN IV PATENCY; Start 02/18/17 at 07:47; Stop 02/18/17 at 19:46; Status DC Info 1 each 1 each PRN DAILY PRN MC SEE COMMENTS; Start 02/18/17 at 08:00; Status UNV Magnesium Sulfate/ Dextrose 50 ml @ 25 mls/hr PRN DAILY PRN IV for Mag < 1.7 on am labs Last administered on 02/18/17 11:16; Start 02/18/17 at 08:00 Propofol 100 ml @ As Directed STK-MED ONCE IV ; Start 02/18/17 at 11:47; Stop 02/18/17 at 11:48; Status DC Propofol (Diprivan) 100 ml @ 0 mls/hr CONT PRN IV SEE I/O RECORD Last administered on 02/22/17 17:50; Start 02/18/17 at 12:45 Insulin Aspart (Novolog) 0-7 UNITS Q6HRS SQ Last administered on 02/22/17 17: 54; Start 02/19/17 at 00:00 Dextrose 12.5 gm 12.5 gm PRN Q15MIN PRN IV SEE COMMENTS; Start 02/18/17 at 21: 00 Magnesium Sulfate/ Dextrose 50 ml @ 25 mls/hr PRN DAILY PRN IV for Mag < 1.7 on am labs; Start 02/19/17 at 07:45; Stop 02/19/17 at 10:20; Status DC Potassium Chloride 50 ml @ 50 mls/hr PRN Q6HRS PRN IV For K < 3.7; Start at 07:45 Potassium Chloride 50 ml @ 50 mls/hr PRN Q2HR PRN IV total of 40mEq for K < 3.5 Last administered on 02/22/17 12:11; Start 02/19/17 at 07:45 Calcium Chloride 2000 mg/Sodium Chloride 120 ml @ 240 mls/hr 1X ONCE IV ; Start 02/19/17 at 08:00; Stop 02/19/17 at 08:29; Status DC Albumin Human (Albuminar) 100 ml @ 100 mls/hr TID IV Last administered on 02/20 20:51; Start 02/19/17 at 09:00; Stop 02/20/17 at 21:59; Status DC Bupropion HCl (Wellbutrin) 75 mg BID NG Last administered on 02/22/17 10:03; Start 02/19/17 at 12:00 Citalopram Hydrobromide 20 mg 20 mg DAILY NG Last administered on 02/22/17 10: 01; Start 02/19/17 at 12:00 Heparin Sodium/ Dextrose 500 ml @ 20 mls/hr CONT PRN IV SEE I/O RECORD Last administered on 02/22/17 17:53; Start 02/19/17 at 13:15 Info 1 each 1 each PRN DAILY PRN MC SEE COMMENTS Last administered on 13:42; Start 02/20/17 at 07:45 Potassium Chloride (KCl Premix 20meq) 50 ml @ 50 mls/hr Q1HR IV Last administered on 02/20/17 09:48; Start 02/20/17 at 09:00; Stop 02/20/17 at 10:59 ; Status DC Metoprolol Tartrate (Lopressor) 2.5 mg 1X ONCE IVP Last administered on 14:19; Start 02/20/17 at 14:00; Stop 02/20/17 at 14:01; Status DC Metoprolol Tartrate (Lopressor) 2.5 mg Q6HRS IVP Last administered on 17:51; Start 02/20/17 at 14:00 Albuterol/ Ipratropium (Duoneb) 3 ml RTQID NEB Last administered on 02/22/17 19:26; Start 02/21/17 at 12:00 Insulin Detemir (Levemir) 10 units QHS SQ Last administered on 02/21/17 21:03 ; Start 02/21/17 at 21:00; Stop 02/22/17 at 12:39; Status DC Insulin Detemir (Levemir) 30 units QHS SQ ; Start 02/22/17 at 21:00 Aspirin (Ecotrin) 81 mg DAILYWBKFT PO ; Start 02/23/17 at 08:00 Active Scripts Active [place] 7.5-325 Tablet (Acetaminophen/Hydrocodone Bitart) 1 Each Tablet 1 Tab PO PRN Q6HRS PRN Reported Requip (Ropinirole Hcl) 1 Mg Tablet 4 Mg PO DAILY Aspir 81 (Aspirin) 81 Mg Tablet.dr 81 Mg PO DAILY Wellbutrin Sr (Bupropion Hcl) 150 Mg Tablet.er 150 Mg PO DAILY Toprol Xl (Metoprolol Succinate) 25 Mg Tab.er.24h 12 Mg PO DAILY Lasix (Furosemide) 40 Mg Tablet 40 Mg PO DAILY Pravastatin Sodium 40 Mg Tablet 40 Mg PO DAILY Pantoprazole Sodium 40 Mg Tablet.dr 40 Mg PO DAILY Doxycycline Hyclate 100 Mg Capsule 1 Cap PO BID Hydrocodone-Apap 5-325 (Hydrocodone Bit/Acetaminophen) 1 Each Tablet 1-2 Tab PO Q4-6HRS PRN Levothyroxine Sodium 75 Mcg Tablet 1 Tab PO DAILY Citalopram Hbr (Citalopram Hydrobromide) 20 Mg Tablet 20 Mg PO DAILY Losartan Potassium 50 Mg Tablet 50 Mg PO DAILY Metformin Hcl 500 Mg Tablet 1 Tab PO TIDWMEALS Vitals/I & O Vital Sign - Last 24 Hours 02/21/17 02/21/17 02/21/17 02/21/17 22:00 22:05 23:00 23:59 Pulse 73 68 Resp 16 16 B/P 125/59 120/61 Pulse Ox 96 97 97 O2 Delivery Ventilator Ventilator Ventilator Mechanical Ventilator 02/22/17 02/22/17 02/22/17 02/22/17 00:00 00:00 00:10 00:15 Temp 98.5 98.5 Pulse 80 65 73 Resp 16 B/P 132/66 127/67 161/77 Pulse Ox 97 97 O2 Delivery Ventilator Ventilator 02/22/17 02/22/17 02/22/17 02/22/17 01:00 02:00 02:05 02:37 Pulse 67 69 Resp 16 14 18 B/P 123/67 139/68 Pulse Ox 97 98 97 O2 Delivery Ventilator Ventilator Ventilator Ventilator 02/22/17 02/22/17 02/22/17 02/22/17 03:00 03:07 04:00 04:00 Temp 98.2 98.2 Pulse 67 69 69 Resp 14 14 14 B/P 122/60 122/62 126/62 Pulse Ox 98 97 O2 Delivery Ventilator Ventilator Ventilator 02/22/17 02/22/17 02/22/17 02/22/17 04:00 04:45 05:00 05:10 Pulse 64 72 Resp 14 B/P 118/62 125/60 Pulse Ox 97 98 O2 Delivery Mechanical Ventilator Ventilator Ventilator 02/22/17 02/22/17 02/22/17 02/22/17 06:00 07:00 07:21 08:00 Temp 97.8 97.8 Pulse 66 73 72 Resp 14 14 14 B/P 124/60 162/81 170/80 Pulse Ox 97 99 96 99 O2 Delivery Ventilator Ventilator Ventilator Ventilator 02/22/17 02/22/17 02/22/17 02/22/17 08:00 08:00 09:00 10:00 Pulse 72 82 80 Resp 14 14 B/P 170/80 180/88 170/82 Pulse Ox 96 97 O2 Delivery Mechanical Ventilator Ventilator Ventilator 02/22/17 02/22/17 02/22/17 02/22/17 11:00 11:58 12:00 12:00 Temp 97.8 97.8 Pulse 90 73 72 Resp 14 14 B/P 206/102 121/61 170/80 Pulse Ox 97 97 99 O2 Delivery Ventilator Ventilator Ventilator 02/22/17 02/22/17 02/22/17 02/22/17 12:00 12:07 13:00 13:15 Pulse 82 81 Resp 14 B/P 158/77 158/78 Pulse Ox 97 97 O2 Delivery Mechanical Ventilator Ventilator Ventilator 02/22/17 02/22/17 02/22/17 02/22/17 14:00 15:00 16:00 16:00 Temp 98.0 98.0 Pulse 77 76 82 80 Resp 14 14 14 B/P 128/63 116/58 152/71 142/70 Pulse Ox 97 97 97 O2 Delivery Ventilator Ventilator Ventilator 02/22/17 02/22/17 02/22/17 02/22/17 16:00 16:04 17:00 17:51 Pulse 76 85 Resp 14 B/P 135/85 154/72 Pulse Ox 97 97 O2 Delivery Mechanical Ventilator Ventilator Ventilator 02/22/17 02/22/17 02/22/17 02/22/17 18:00 18:11 19:27 19:45 Temp 98.6 98.6 Pulse 75 82 Resp 14 18 B/P 154/94 140/88 Pulse Ox 96 96 96 96 O2 Delivery Ventilator Ventilator Ventilator Ventilator 02/22/17 02/22/17 19:45 19:46 Pulse 86 Resp 18 B/P 146/74 Pulse Ox 96 O2 Delivery Mechanical Ventilator Ventilator Intake and Output 02/21/17 02/21/17 02/22/17 15:00 23:00 07:00 Intake Total 310 ml 663 ml 1459 ml Output Total 355 ml 495 ml 455 ml Balance -45 ml 168 ml 1004 ml Nutrition Consultation Dietary Evaluation: Comments: Rec. TF's with Peptamen AF, goal rate 55 ml/hr start at 15 ml/hr, increase by 15 ml/hr q8h to goal rate flushes PRN while on IVF's Expected Outcomes/Goals: Tolerate TF's at goal rate Malnutrition Findings: Reduced [employer] Strength: N/A Malnutrition related to morbid: No Weight Status: Obese OLIVIA MIR III DO Feb 22, 2017 21:22
[2017-02-23] VITALS (24 sets, daily range): BP systolic 89–181; BP diastolic 53–98
[2017-02-23] MEDS: METOPROLOL TARTRATE 5 MG/5 ML VIAL. IVP SCH ×4 (00:36→18:01)
[2017-02-23] MEDS: INSULIN ASPART 300 UNITS/3 ML INSULN.PEN SQ SCH ×4 (00:42→18:06)
[2017-02-23] MEDS: PROPOFOL 100 ML IV PRN ×3 (00:46→21:01)
[2017-02-23] MEDS: HYDROCORTISONE SOD SUCC/PF 100 MG/2 ML VIAL. IV SCH ×3 (06:07→21:00)
[2017-02-23] MEDS: PIPERACILLIN/TAZOBACTAM 2.25 GM in IV NORMAL SALINE 50ML 50 ML IV SCH ×3 (06:07→21:00)
[2017-02-23 06:44] LABS: BASO # 0.1 x10^3/uL (0.0-0.2); BASO % 1 % (0-3); EOS % 0 % (0-3); HEMATOCRIT 34.2 % (36.0-47.0); HEMOGLOBIN 10.7 g/dL (12.0-15.5); LYMPH # 0.3 x10^3/uL (1.0-4.8); LYMPH % 3 % (24-48); MEAN CORPUSCULAR HEMOGLOBIN 24 pg (25-35); MEAN CORPUSCULAR HGB CONC 31 g/dL (31-37); MEAN CORPUSCULAR VOLUME 76 fL (79-100); MONO % 7 % (0-9); NEUT % 90 % (31-73); PLATELET COUNT 128 x10^3/uL (140-400); RED BLOOD COUNT 4.49 x10^6/uL (3.50-5.40); RED CELL DISTRIBUTION WIDTH 22.9 % (11.5-14.5)
[2017-02-23 06:59] LABS: ALBUMIN 3.4 g/dL (3.4-5.0); CALCIUM 8.8 mg/dL (8.5-10.1); CREATININE 1.2 mg/dL (0.6-1.0); GFR 45.5; PHOSPHORUS 3.3 mg/dL (2.6-4.7); POTASSIUM 3.8 mmol/L (3.5-5.1)
--- NOTE | 2017-02-23 07:06 | PDOC ---
SUBJECTIVE ROS BRADLEY/ Edema/ ? CKD III Remains sedated and intubated OBJECTIVE Vital Signs Vital Signs Date Time Temp Pulse Resp B/P Pulse Ox O2 Delivery O2 Flow Rate FiO2 02/23/17 06:11 80 15 160/75 97 Ventilator 02/23/17 04:00 98.6 98.6 I & 0 Intake and Output 02/23/17 07:00 Intake Total 1613 ml Output Total 1515 ml Balance 98 ml IV Total 708 ml Tube Feeding 605 ml Other 300 ml Output Urine Total 1515 ml PHYSICAL EXAM Physical Exam GEN: SEdated and intubated; In no distress EYES: Sclera anicteric, Conjunctiva Normal EN: No EN Drainage, Mucous Membranes moist NECK: + JVD, + JVP, Supple, no Thyromegaly CVS: S1S2, no Murmur, No Gallop, No Rub, ++ Edema RESP: rare Rales, no Rhonchi,no Acc. Muscle Use GI: BS + ve, NO Bruit, Non Tender, Non Distended : no CVA tenderness, no Suprapubic Tenderness DIAGNOSIS/ASSESSMENT BRADLEY/ ATN: resolved; D/c HD Cath ? Underlying CKD III due to DM / HTNsive / NS cannot be ruled out - will f/ upas OP Hyperglycemia - defer to Primary team to control Resp Failure - on vent - known Pulm Fibrosis Edema - wean hydrocortisone and reval. aggressive diuresis may worsen azotemia in setting of TF and recent BRADLEY so will be conservative with lasix unless needed for resp issues HTN - labile based on state/ depth of sedation; wean hydrocortisone and reval. Tendency to Low K - (? due to Zosyn and hydrocortisone) replace per sliding scale; wean hydrocortisone and reval. COMMENT/RELEVANT DATA Meds Current Medications Medications (Trade) Dose Ordered Sig/Janeen Start Time Stop Time Status Last Admin Dose Admin Acetaminophen (Tylenol) 500 mg 1X PRN PRN 02/18/17 08:00 02/19/17 07:59 DC Acetaminophen 650 mg 650 mg PRN Q6HRS PRN 02/17/17 02:00 Albumin Human (Albuminar) 100 ml @ 100 mls/hr TID 02/19/17 09:00 02/20/17 21:59 DC 02/20/17 20:51 100 MLS/HR Albuterol/ Ipratropium (Duoneb) 3 ml RTQID 02/21/17 12:00 02/22/17 19:26 3 ML Aspirin (Ecotrin) 81 mg [id number] 02/23/17 08:00 Bupropion HCl (Wellbutrin) 75 mg BID 02/19/17 12:00 02/22/17 21:08 75 MG Calcium Chloride 2000 mg/Sodium Chloride 120 ml @ 240 mls/hr 1X ONCE 02/19/17 08:00 02/19/17 08:29 DC Chlorhexidine Gluconate (Peridex) 15 ml BID 02/17/17 21:00 02/22/17 21:06 15 ML Citalopram Hydrobromide 20 mg 20 mg DAILY 02/19/17 12:00 02/22/17 10:01 20 MG Clonidine HCl 0.1 mg 0.1 mg 1X PRN PRN 02/18/17 08:00 02/19/17 07:59 DC Dextrose 12.5 gm 12.5 gm PRN Q15MIN PRN 02/18/17 21:00 Diphenhydramine HCl (Benadryl) 25 mg 1X PRN PRN 02/18/17 08:00 02/19/17 07:59 DC Fentanyl Citrate (Fentanyl 2ml Vial) 50 mcg PRN Q2HR PRN 02/17/17 09:00 02/22/17 02:37 50 MCG Heparin Sodium (Porcine) (Heparin Sodium) 2,500 unit 1X ONCE 02/17/17 10:15 02/17/17 10:16 DC Heparin Sodium/ Dextrose 500 ml @ 20 mls/hr CONT PRN 02/19/17 13:15 02/22/17 17:53 20 MLS/HR Heparin Sodium/ Sodium Chloride 60 unit 1X ONCE 02/17/17 10:15 02/17/17 10:16 DC Hydrocortisone Sodium Succinate (Solu-Cortef) 100 mg Q8HRS 02/17/17 14:00 02/23/17 06:07 100 MG Hydrocortisone Sodium Succinate 100 mg 100 mg ONCE ONCE 02/17/17 10:30 02/17/17 10:31 DC 02/17/17 10:36 100 MG Info (PHARMACY MONITORING -- do not chart) 1 each PRN DAILY PRN 02/17/17 12:30 UNV Info 1 each 1 each PRN DAILY PRN 02/20/17 07:45 02/22/17 13:42 1 EACH Insulin Aspart (Novolog) 0-7 UNITS Q6HRS 02/19/17 00:00 02/23/17 06:09 7 UNITS Insulin Detemir (Levemir) 30 units QHS 02/22/17 21:00 02/22/17 21:07 30 UNITS Labetalol HCl (Normodyne) 10 mg PRN Q1HR PRN 02/18/17 08:00 02/19/17 07:59 DC Levothyroxine Sodium/Sodium Chloride (Synthroid/Iv Sodium Chloride 0.9% 50ml) 5 ml @ 100 mls/hr DAILY 02/17/17 09:00 02/22/17 10:00 100 MLS/HR Lidocaine/Sodium Bicarbonate (Buffered Lidocaine 1%) 3 ml 1X ONCE 02/17/17 10:15 02/17/17 10:16 DC Magnesium Sulfate/ Dextrose 50 ml @ 25 mls/hr PRN DAILY PRN 02/19/17 07:45 02/19/17 10:20 DC Magnesium Sulfate/ Dextrose (Magnesium Sulfate PREMIX 2GM) 50 ml @ 25 mls/hr 1X ONCE 02/17/17 09:00 02/17/17 10:59 DC 02/17/17 09:30 25 MLS/HR Metoprolol Tartrate (Lopressor) 2.5 mg Q6HRS 02/20/17 14:00 02/23/17 06:07 2.5 MG Midazolam HCl 100 ml @ 0 mls/hr CONT PRN 02/17/17 02:30 02/17/17 20:34 5 MLS/HR Norepinephrine Bitartrate 250 ml @ 0 mls/hr CONT PRN 02/17/17 06:15 02/18/17 11:15 7.5 MLS/HR Ondansetron HCl (Zofran) 4 mg PRN Q6HRS PRN 02/17/17 02:00 Pantoprazole Sodium (Protonix Vial) 40 mg TID 02/17/17 09:00 02/17/17 13:17 DC 02/17/17 08:56 40 MG Pantoprazole Sodium 40 mg 40 mg DAILY 02/18/17 09:00 02/22/17 10:00 40 MG Piperacillin Sod/ Tazobactam Sod 2.25 gm/Sodium Chloride 50 ml @ 100 mls/hr Q8HRS 02/17/17 08:45 02/23/17 06:07 100 MLS/HR Pneumococcal Polyvalent Vaccine 0.5 ml 0.5 ml ONCE ONCE 02/17/17 09:00 02/17/17 09:01 DC Pneumococcal Polyvalent Vaccine (Do NOT chart on this placeholder) 1 each 1X ONCE 02/17/17 06:00 02/17/17 06:01 UNV Potassium Chloride (KCl Premix 20meq) 50 ml @ 50 mls/hr Q1HR 02/20/17 09:00 02/20/17 10:59 DC 02/20/17 09:48 50 MLS/HR Propofol (Diprivan) 100 ml @ 0 mls/hr CONT PRN 02/18/17 12:45 02/23/17 06:06 15.351 MLS/HR Sodium Bicarbonate 100 meq 100 meq 1X ONCE 02/17/17 09:45 02/17/17 09:48 DC 02/17/17 09:51 100 MEQ Sodium Bicarbonate 150 meq/Dextrose 1,150 ml @ 150 mls/hr Q7H40M 02/17/17 09:45 02/17/17 18:05 DC 02/17/17 10:34 150 MLS/HR Sodium Polystyrene Sulfonate (Kayexalate) 30 gm 1X ONCE 02/17/17 02:45 02/17/17 02:46 DC 02/17/17 03:54 30 GM Sodium Bicarbonate 50 meq STK-MED ONCE 02/17/17 09:42 02/17/17 09:43 DC Sodium Chloride 1,000 ml @ 400 mls/hr Q2H30M PRN 02/18/17 07:47 02/18/17 19:46 DC Sodium Chloride (Iv Sodium Chloride 0.9% 1000ml Bag) 1,000 ml @ 1,000 mls/hr Q1H PRN 02/18/17 07:47 02/18/17 13:46 DC Sodium Chloride (Normal Saline Flush) 10 ml 1X PRN PRN 02/17/17 12:30 02/18/17 12:29 DC Vancomycin HCl 1 each 1X ONCE 02/19/17 10:30 02/19/17 10:30 DC Vancomycin HCl (Vanco Per Pharmacy) 1 each PRN DAILY PRN 02/17/17 10:15 02/18/17 12:50 DC 02/17/17 10:28 1 EACH Vancomycin HCl/ Sodium Chloride (Iv Sodium Chloride 0.9% 500ml Bag) 500 ml @ 250 mls/hr ONCE ONCE 02/17/17 10:30 02/17/17 12:29 DC 02/17/17 13:53 250 MLS/HR Vasopressin 40 unit/Dextrose 102 ml @ 6 mls/hr CONT PRN 02/17/17 10:15 02/18/17 13:53 6 MLS/HR Vasopressin/ Dextrose (Vasostrict) 102 ml @ 6 mls/hr ONCE ONCE 02/17/17 10:00 02/18/17 02:59 DC 02/17/17 10:34 6 MLS/HR Lab Laboratory Tests Test 02/22/17 07:30 02/22/17 12:14 02/22/17 17:52 02/22/17 21:04 O2 Saturation 97% (92-99) Arterial Blood pH 7.45 (7.35-7.45) Arterial Blood pCO2 at Patient Temp 44mmHg (35-46) Arterial Blood pO2 at Patient Temp 95mmHg (65-108) Arterial Blood HCO3 30mmol/L (21-28) Arterial Blood Base Excess 5mmol/L (-3-3) FiO2 40 Glucose (Fingerstick) 366mg/dL (70-99) 357mg/dL (70-99) 317mg/dL (70-99) Test 02/23/17 00:38 02/23/17 06:04 02/23/17 06:15 Glucose (Fingerstick) 324mg/dL (70-99) 320mg/dL (70-99) White Blood Count 10.0x10^3/uL (4.0-11.0) Red Blood Count 4.49x10^6/uL (3.50-5.40) Hemoglobin 10.7g/dL (12.0-15.5) Hematocrit 34.2% (36.0-47.0) Mean Corpuscular Volume 76fL (79-100) Mean Corpuscular Hemoglobin 24pg (25-35) Mean Corpuscular Hemoglobin Concent 31g/dL (31-37) Red Cell Distribution Width 22.9% (11.5-14.5) Platelet Count 128x10^3/uL (140-400) Neutrophils (%) (Auto) 90% (31-73) Lymphocytes (%) (Auto) 3% (24-48) Monocytes (%) (Auto) 7% (0-9) Eosinophils (%) (Auto) 0% (0-3) Basophils (%) (Auto) 1% (0-3) Neutrophils # (Auto) 9.0x10^3uL (1.8-7.7) Lymphocytes # (Auto) 0.3x10^3/uL (1.0-4.8) Monocytes # (Auto) 0.7x10^3/uL (0.0-1.1) Eosinophils # (Auto) 0.0x10^3/uL (0.0-0.7) Basophils # (Auto) 0.1x10^3/uL (0.0-0.2) Sodium Level 137mmol/L (136-145) Potassium Level 3.8mmol/L (3.5-5.1) Chloride Level 100mmol/L (98-107) Carbon Dioxide Level 30mmol/L (21-32) Anion Gap 7 (6-14) Blood Urea Nitrogen 52mg/dL (7-20) Creatinine 1.2mg/dL (0.6-1.0) Estimated GFR (Cockcroft-Gault) 45.5 Glucose Level 346mg/dL (70-99) Calcium Level 8.8mg/dL (8.5-10.1) Phosphorus Level 3.3mg/dL (2.6-4.7) Magnesium Level 2.3mg/dL (1.8-2.4) Creatine Kinase 110U/L (26-192) Albumin 3.4g/dL (3.4-5.0) DELLA AMEZQUITA MD Feb 23, 2017 07:06
[2017-02-23] MEDS: IPRATRPIUM/ALBUTEROL 0.5/2.5MG 3 ML NEBU. NEB SCH ×4 (07:26→20:08)
[2017-02-23 07:39] LABS: HCO3 ABG 29 mmol/L (21-28); PCO2 ABG 43 mmHg (35-46); PH ABG 7.44 (7.35-7.45); PO2 ABG 95 mmHg (65-108); SAT O2 ABG 97 % (92-99)
[2017-02-23 07:42] LABS: FIO2 ABG 40
[2017-02-23] MEDS ORDERED: ASPIRIN ENTERIC COATED 81 MG TABLET.DR. PO SCH (08:00)
[2017-02-23] MEDS: CITALOPRAM 20 MG TABLET. NG SCH (08:12)
[2017-02-23] MEDS: buPROPion 75 MG TABLET. NG SCH ×2 (08:12→20:59)
[2017-02-23] MEDS: PANTOPRAZOLE IV PUSH 40 MG VIAL. IVP SCH (08:12)
[2017-02-23] MEDS: ASPIRIN CHEWABLE 81 MG TABLET. PO SCH (08:13)
[2017-02-23] MEDS: CHLORHEXIDINE 0.12% 15 ML MOUTHWASH. SWSP SCH ×2 (08:13→20:59)
--- NOTE | 2017-02-23 08:34 | PDOC ---
Infectious Disease Note Subjective Subjective Remains intubated. FiO2 40% Sedated No fever Tube feedings ROS ROS unobtainable Vital Sign Vital Signs Vital Signs Date Time Temp Pulse Resp B/P Pulse Ox O2 Delivery O2 Flow Rate FiO2 02/23/17 07:26 96 Ventilator 02/23/17 06:11 80 15 160/75 02/23/17 04:00 98.6 98.6 Physical Exam PHYSICAL EXAM GENERAL: Intubated and sedated. HEENT: PERRL, ETT. OGT LUNGS: Clear HEART: S1S2, regular ABD: Soft, BS present : [place] EXT: BLE edema. No cyanosis [employer]: Sedated SKIN: No rash RIJ HDC, right radial art-line and left subclavian cath. clean Labs Lab Laboratory Tests Test 02/22/17 12:14 02/22/17 17:52 02/22/17 21:04 02/23/17 00:38 Glucose (Fingerstick) 366mg/dL (70-99) 357mg/dL (70-99) 317mg/dL (70-99) 324mg/dL (70-99) Test 02/23/17 06:04 02/23/17 06:15 02/23/17 06:16 02/23/17 07:25 Glucose (Fingerstick) 320mg/dL (70-99) White Blood Count 10.0x10^3/uL (4.0-11.0) Red Blood Count 4.49x10^6/uL (3.50-5.40) Hemoglobin 10.7g/dL (12.0-15.5) Hematocrit 34.2% (36.0-47.0) Mean Corpuscular Volume 76fL (79-100) Mean Corpuscular Hemoglobin 24pg (25-35) Mean Corpuscular Hemoglobin Concent 31g/dL (31-37) Red Cell Distribution Width 22.9% (11.5-14.5) Platelet Count 128x10^3/uL (140-400) Neutrophils (%) (Auto) 90% (31-73) Lymphocytes (%) (Auto) 3% (24-48) Monocytes (%) (Auto) 7% (0-9) Eosinophils (%) (Auto) 0% (0-3) Basophils (%) (Auto) 1% (0-3) Neutrophils # (Auto) 9.0x10^3uL (1.8-7.7) Lymphocytes # (Auto) 0.3x10^3/uL (1.0-4.8) Monocytes # (Auto) 0.7x10^3/uL (0.0-1.1) Eosinophils # (Auto) 0.0x10^3/uL (0.0-0.7) Basophils # (Auto) 0.1x10^3/uL (0.0-0.2) Sodium Level 137mmol/L (136-145) Potassium Level 3.8mmol/L (3.5-5.1) Chloride Level 100mmol/L (98-107) Carbon Dioxide Level 30mmol/L (21-32) Anion Gap 7 (6-14) Blood Urea Nitrogen 52mg/dL (7-20) Creatinine 1.2mg/dL (0.6-1.0) Estimated GFR (Cockcroft-Gault) 45.5 Glucose Level 346mg/dL (70-99) Calcium Level 8.8mg/dL (8.5-10.1) Phosphorus Level 3.3mg/dL (2.6-4.7) Magnesium Level 2.3mg/dL (1.8-2.4) Creatine Kinase 110U/L (26-192) Albumin 3.4g/dL (3.4-5.0) Heparin Anti-Xa Act, Unfractionated 0.91IU/mL (0.30-0.70) O2 Saturation 97% (92-99) Arterial Blood pH 7.44 (7.35-7.45) Arterial Blood pCO2 at Patient Temp 43mmHg (35-46) Arterial Blood pO2 at Patient Temp 95mmHg (65-108) Arterial Blood HCO3 29mmol/L (21-28) Arterial Blood Base Excess 4mmol/L (-3-3) FiO2 40 Objective Assessment ? sepsis vs SIRS. Received Solu-Medrol in [facility]. On Solu-Cortef. Off pressors NSTEMI Ecoli in urine 02/17 ? colonization - Res to Pip but she is responding so likely sens to Zosyn Hyperglycemia ? Aspiration - intubated- h/o Pulm fibrosis Lactic acidosis - improved BRADLEY - dehydration. Getting HD Transaminitis H/o elevated CORA DM and gastroparesis Plan Plan of Care Continue Zosyn (started 12/20) Monitor labs Supportive May need further eval for ? autoimmune given elevated CORA 1:640 with homogenous patten in Nov 2014 but now on hydrocortisone Critically ill Attending Co-Sign The patient was seen and interviewed as well as examined at the bedside. The chart was reviewed. The case was discussed. Agree with the plan of care. ALLYN WARD APRN Feb 23, 2017 08:34 ELIAS AMEZQUITA MD Feb 23, 2017 12:25
[2017-02-23] MEDS: LEVOTHYROXINE SODIUM 37.5 MCG in IV NORMAL SALINE 50ML 5 ML IVP SCH (08:42)
--- NOTE | 2017-02-23 09:26 | RAD ---
Portable AP upright chest x-ray performed at 05 39 Indications: Respiratory failure. CHF. Follow-up study. Comparison: February 20, 2017. Findings: Again seen are bilateral interstitial lung infiltrates which have not changed significantly. No new lung consolidation is seen. No pleural effusion or pneumothorax is seen. The heart size and mediastinum are stable. There've been no interval tube or line changes. IMPRESSION: Stable bilateral interstitial lung infiltrates.
[2017-02-23] MEDS ORDERED: NITROGLYCERIN PREMIX 250 ML IV ONE (12:30)
--- NOTE | 2017-02-23 13:45 | PDOC ---
PROGRESS NOTES Chief Complaint Chief Complaint cc: Respiratory failure -Acute renal failure -CHF -NSTEMI -CAD -Septic shock -CABG -HLD -HTN -Tonsillectomy -Pulmonary fibrosis -FREDY -Obesity -Constipation -GERD -Breast excision -Tubal ligation -DM -Hypothyroidism -Anxiety -Smoking -Hepatitis A -Respiratory failure History of Present Illness History of Present Illness Ms. Betancourt was still on the ventilator when we visited her. Her ventilator settings were at A/C / 14 f / 500 TV / 40% FiO2%. Her SpO2% was 97. She had mittens on bilaterally and compression devices on her lower legs. Her valencia catheter was in place. Her was present to discuss the case. She was not moving and tossing around as much as yesterday - she seemed less physically agitated. Her dialysis catheter was removed, and extubation is possible for tomorrow. We discussed the case with her nurse. Vitals Vitals Vital Signs Date Time Temp Pulse Resp B/P Pulse Ox O2 Delivery O2 Flow Rate FiO2 02/23/17 12:21 76 131/78 02/23/17 11:48 96 Ventilator 02/23/17 06:11 15 02/23/17 04:00 98.6 98.6 Physical Exam General: No acute distress, Other (This patient was on a ventilator.) Heart: Regular rate, Normal S1, Normal S2 Lungs: Clear, Other (No chest retractions were present.) Abdomen: No hepatosplenomegaly, No masses Extremities: No cyanosis, Normal pulses Skin: No rashes, No breakdown Labs LABS Laboratory Tests Test 02/22/17 17:52 02/22/17 21:04 02/23/17 00:38 02/23/17 06:04 Glucose (Fingerstick) 357mg/dL (70-99) 317mg/dL (70-99) 324mg/dL (70-99) 320mg/dL (70-99) Test 02/23/17 06:15 02/23/17 06:16 02/23/17 07:25 02/23/17 12:14 White Blood Count 10.0x10^3/uL (4.0-11.0) Red Blood Count 4.49x10^6/uL (3.50-5.40) Hemoglobin 10.7g/dL (12.0-15.5) Hematocrit 34.2% (36.0-47.0) Mean Corpuscular Volume 76fL (79-100) Mean Corpuscular Hemoglobin 24pg (25-35) Mean Corpuscular Hemoglobin Concent 31g/dL (31-37) Red Cell Distribution Width 22.9% (11.5-14.5) Platelet Count 128x10^3/uL (140-400) Neutrophils (%) (Auto) 90% (31-73) Lymphocytes (%) (Auto) 3% (24-48) Monocytes (%) (Auto) 7% (0-9) Eosinophils (%) (Auto) 0% (0-3) Basophils (%) (Auto) 1% (0-3) Neutrophils # (Auto) 9.0x10^3uL (1.8-7.7) Lymphocytes # (Auto) 0.3x10^3/uL (1.0-4.8) Monocytes # (Auto) 0.7x10^3/uL (0.0-1.1) Eosinophils # (Auto) 0.0x10^3/uL (0.0-0.7) Basophils # (Auto) 0.1x10^3/uL (0.0-0.2) Sodium Level 137mmol/L (136-145) Potassium Level 3.8mmol/L (3.5-5.1) Chloride Level 100mmol/L (98-107) Carbon Dioxide Level 30mmol/L (21-32) Anion Gap 7 (6-14) Blood Urea Nitrogen 52mg/dL (7-20) Creatinine 1.2mg/dL (0.6-1.0) Estimated GFR (Cockcroft-Gault) 45.5 Glucose Level 346mg/dL (70-99) Calcium Level 8.8mg/dL (8.5-10.1) Phosphorus Level 3.3mg/dL (2.6-4.7) Magnesium Level 2.3mg/dL (1.8-2.4) Creatine Kinase 110U/L (26-192) Albumin 3.4g/dL (3.4-5.0) Heparin Anti-Xa Act, Unfractionated 0.91IU/mL (0.30-0.70) O2 Saturation 97% (92-99) Arterial Blood pH 7.44 (7.35-7.45) Arterial Blood pCO2 at Patient Temp 43mmHg (35-46) Arterial Blood pO2 at Patient Temp 95mmHg (65-108) Arterial Blood HCO3 29mmol/L (21-28) Arterial Blood Base Excess 4mmol/L (-3-3) FiO2 40 Glucose (Fingerstick) 340mg/dL (70-99) Review of Systems Review of Systems This portion of the exam was unable to be completed because she was on a ventilator. Assessment and Plan Assessmemt and Plan Problems Medical Problems: (1) ARF (acute renal failure) Status: Acute (2) Cardiac failure Status: Acute (3) Hypoxia Status: Acute (4) Respiratory failure Status: Acute Ms. Betancourt is a 61 year old female who initially presented with respiratory failure. -Acute renal failure -CHF -NSTEMI -CAD -Septic shock -CABG -HLD -HTN -Tonsillectomy -Pulmonary fibrosis -FREDY -Obesity -Constipation -GERD -Breast excision -Tubal ligation -DM -Hypothyroidism -Anxiety -Smoking -Hepatitis A -Respiratory failure Plan: 1. Possible extubation tomorrow 2. Sliding scale insulin will be employed 3. Continue breathing treatments 4. Potassium replacement 5. Pain and sedative management 6. Continue home medications 7. Zosyn per ID 8. Recheck labs 9. PT/OT 10. Appreciate consultation from subspecialists Her condition is guarded. Problems: Comment Review of Relevant I have reviewed the following items trey (where applicable) has been applied. Labs Laboratory Tests Test 02/21/17 17:36 02/21/17 21:02 02/22/17 00:16 02/22/17 05:15 Glucose (Fingerstick) 342mg/dL (70-99) 277mg/dL (70-99) 259mg/dL (70-99) 314mg/dL (70-99) Test 02/22/17 05:30 02/22/17 07:30 02/22/17 12:14 02/22/17 17:52 White Blood Count 6.9x10^3/uL (4.0-11.0) Red Blood Count 4.28x10^6/uL (3.50-5.40) Hemoglobin 10.1g/dL (12.0-15.5) Hematocrit 32.9% (36.0-47.0) Mean Corpuscular Volume 77fL (79-100) Mean Corpuscular Hemoglobin 24pg (25-35) Mean Corpuscular Hemoglobin Concent 31g/dL (31-37) Red Cell Distribution Width 22.6% (11.5-14.5) Platelet Count 110x10^3/uL (140-400) Neutrophils (%) (Auto) 87% (31-73) Lymphocytes (%) (Auto) 6% (24-48) Monocytes (%) (Auto) 7% (0-9) Eosinophils (%) (Auto) 0% (0-3) Basophils (%) (Auto) 0% (0-3) Neutrophils # (Auto) 6.0x10^3uL (1.8-7.7) Lymphocytes # (Auto) 0.4x10^3/uL (1.0-4.8) Monocytes # (Auto) 0.5x10^3/uL (0.0-1.1) Eosinophils # (Auto) 0.0x10^3/uL (0.0-0.7) Basophils # (Auto) 0.0x10^3/uL (0.0-0.2) Heparin Anti-Xa Act, Unfractionated 0.54IU/mL (0.30-0.70) Sodium Level 139mmol/L (136-145) Potassium Level 3.4mmol/L (3.5-5.1) Chloride Level 100mmol/L (98-107) Carbon Dioxide Level 31mmol/L (21-32) Anion Gap 8 (6-14) Blood Urea Nitrogen 52mg/dL (7-20) Creatinine 1.4mg/dL (0.6-1.0) Estimated GFR (Cockcroft-Gault) 38.1 Glucose Level 328mg/dL (70-99) Calcium Level 8.6mg/dL (8.5-10.1) Phosphorus Level 3.2mg/dL (2.6-4.7) Magnesium Level 2.0mg/dL (1.8-2.4) Creatine Kinase 127U/L (26-192) Albumin 3.3g/dL (3.4-5.0) O2 Saturation 97% (92-99) Arterial Blood pH 7.45 (7.35-7.45) Arterial Blood pCO2 at Patient Temp 44mmHg (35-46) Arterial Blood pO2 at Patient Temp 95mmHg (65-108) Arterial Blood HCO3 30mmol/L (21-28) Arterial Blood Base Excess 5mmol/L (-3-3) FiO2 40 Glucose (Fingerstick) 366mg/dL (70-99) 357mg/dL (70-99) Test 02/22/17 21:04 02/23/17 00:38 02/23/17 06:04 02/23/17 06:15 Glucose (Fingerstick) 317mg/dL (70-99) 324mg/dL (70-99) 320mg/dL (70-99) White Blood Count 10.0x10^3/uL (4.0-11.0) Red Blood Count 4.49x10^6/uL (3.50-5.40) Hemoglobin 10.7g/dL (12.0-15.5) Hematocrit 34.2% (36.0-47.0) Mean Corpuscular Volume 76fL (79-100) Mean Corpuscular Hemoglobin 24pg (25-35) Mean Corpuscular Hemoglobin Concent 31g/dL (31-37) Red Cell Distribution Width 22.9% (11.5-14.5) Platelet Count 128x10^3/uL (140-400) Neutrophils (%) (Auto) 90% (31-73) Lymphocytes (%) (Auto) 3% (24-48) Monocytes (%) (Auto) 7% (0-9) Eosinophils (%) (Auto) 0% (0-3) Basophils (%) (Auto) 1% (0-3) Neutrophils # (Auto) 9.0x10^3uL (1.8-7.7) Lymphocytes # (Auto) 0.3x10^3/uL (1.0-4.8) Monocytes # (Auto) 0.7x10^3/uL (0.0-1.1) Eosinophils # (Auto) 0.0x10^3/uL (0.0-0.7) Basophils # (Auto) 0.1x10^3/uL (0.0-0.2) Sodium Level 137mmol/L (136-145) Potassium Level 3.8mmol/L (3.5-5.1) Chloride Level 100mmol/L (98-107) Carbon Dioxide Level 30mmol/L (21-32) Anion Gap 7 (6-14) Blood Urea Nitrogen 52mg/dL (7-20) Creatinine 1.2mg/dL (0.6-1.0) Estimated GFR (Cockcroft-Gault) 45.5 Glucose Level 346mg/dL (70-99) Calcium Level 8.8mg/dL (8.5-10.1) Phosphorus Level 3.3mg/dL (2.6-4.7) Magnesium Level 2.3mg/dL (1.8-2.4) Creatine Kinase 110U/L (26-192) Albumin 3.4g/dL (3.4-5.0) Test 02/23/17 06:16 02/23/17 07:25 02/23/17 12:14 Heparin Anti-Xa Act, Unfractionated 0.91IU/mL (0.30-0.70) O2 Saturation 97% (92-99) Arterial Blood pH 7.44 (7.35-7.45) Arterial Blood pCO2 at Patient Temp 43mmHg (35-46) Arterial Blood pO2 at Patient Temp 95mmHg (65-108) Arterial Blood HCO3 29mmol/L (21-28) Arterial Blood Base Excess 4mmol/L (-3-3) FiO2 40 Glucose (Fingerstick) 340mg/dL (70-99) Laboratory Tests Test 02/22/17 17:52 02/22/17 21:04 02/23/17 00:38 02/23/17 06:04 Glucose (Fingerstick) 357mg/dL (70-99) 317mg/dL (70-99) 324mg/dL (70-99) 320mg/dL (70-99) Test 02/23/17 06:15 02/23/17 06:16 02/23/17 07:25 02/23/17 12:14 White Blood Count 10.0x10^3/uL (4.0-11.0) Red Blood Count 4.49x10^6/uL (3.50-5.40) Hemoglobin 10.7g/dL (12.0-15.5) Hematocrit 34.2% (36.0-47.0) Mean Corpuscular Volume 76fL (79-100) Mean Corpuscular Hemoglobin 24pg (25-35) Mean Corpuscular Hemoglobin Concent 31g/dL (31-37) Red Cell Distribution Width 22.9% (11.5-14.5) Platelet Count 128x10^3/uL (140-400) Neutrophils (%) (Auto) 90% (31-73) Lymphocytes (%) (Auto) 3% (24-48) Monocytes (%) (Auto) 7% (0-9) Eosinophils (%) (Auto) 0% (0-3) Basophils (%) (Auto) 1% (0-3) Neutrophils # (Auto) 9.0x10^3uL (1.8-7.7) Lymphocytes # (Auto) 0.3x10^3/uL (1.0-4.8) Monocytes # (Auto) 0.7x10^3/uL (0.0-1.1) Eosinophils # (Auto) 0.0x10^3/uL (0.0-0.7) Basophils # (Auto) 0.1x10^3/uL (0.0-0.2) Sodium Level 137mmol/L (136-145) Potassium Level 3.8mmol/L (3.5-5.1) Chloride Level 100mmol/L (98-107) Carbon Dioxide Level 30mmol/L (21-32) Anion Gap 7 (6-14) Blood Urea Nitrogen 52mg/dL (7-20) Creatinine 1.2mg/dL (0.6-1.0) Estimated GFR (Cockcroft-Gault) 45.5 Glucose Level 346mg/dL (70-99) Calcium Level 8.8mg/dL (8.5-10.1) Phosphorus Level 3.3mg/dL (2.6-4.7) Magnesium Level 2.3mg/dL (1.8-2.4) Creatine Kinase 110U/L (26-192) Albumin 3.4g/dL (3.4-5.0) Heparin Anti-Xa Act, Unfractionated 0.91IU/mL (0.30-0.70) O2 Saturation 97% (92-99) Arterial Blood pH 7.44 (7.35-7.45) Arterial Blood pCO2 at Patient Temp 43mmHg (35-46) Arterial Blood pO2 at Patient Temp 95mmHg (65-108) Arterial Blood HCO3 29mmol/L (21-28) Arterial Blood Base Excess 4mmol/L (-3-3) FiO2 40 Glucose (Fingerstick) 340mg/dL (70-99) Microbiology 02/18/17 Urine Culture - Final, Complete 02/18/17 Urine Culture Result 1 (NORBERTO) - Final, Complete Medications Current Medications Sodium Polystyrene Sulfonate (Kayexalate) 30 gm 1X ONCE PO Last administered on 02/17/17 03:54; Start 02/17/17 at 02:45; Stop 02/17/17 at 02:46; Status DC Ondansetron HCl (Zofran) 4 mg PRN Q6HRS PRN IV NAUSEA/VOMITING; Start 02/17/17 at 02:00 Pantoprazole Sodium (Protonix Vial) 40 mg TID IVP Last administered on 08:56; Start 02/17/17 at 09:00; Stop 02/17/17 at 13:17; Status DC Acetaminophen 650 mg 650 mg PRN Q6HRS PRN PO FEVER; Start 02/17/17 at 02:00 Midazolam HCl 100 ml @ 0 mls/hr CONT PRN IV SEE I/O RECORD Last administered on 02/17/17 20:34; Start 02/17/17 at 02:30 Levothyroxine Sodium 37.5 mcg/ Sodium Chloride 5 ml @ 100 mls/hr DAILY IVP Last administered on 02/23/17 08:42; Start 02/17/17 at 09:00 Sodium Chloride 1,000 ml @ 100 mls/hr 1X ONCE IV Last administered on 04:25; Start 02/17/17 at 04:30; Stop 02/17/17 at 11:25; Status DC Sodium Chloride (Iv Sodium Chloride 0.9% 1000ml Bag) 1,000 ml @ 100 mls/hr 1X ONCE IV Last administered on 02/17/17 04:25; Start 02/17/17 at 04:30; Stop at 09:15; Status DC Pneumococcal Polyvalent Vaccine (Do NOT chart on this placeholder) 1 each 1X ONCE MC ; Start 02/17/17 at 06:00; Stop 02/17/17 at 06:01; Status UNV Pneumococcal Polyvalent Vaccine 0.5 ml 0.5 ml ONCE ONCE VAX IM ; Start 02/17/17 at 09:00; Stop 02/17/17 at 09:01; Status DC Norepinephrine Bitartrate 250 ml @ 0 mls/hr CONT PRN IV SEE I/O RECORD Last administered on 02/18/17 11:15; Start 02/17/17 at 06:15 Sodium Chloride 1,000 ml @ 1,000 mls/hr 1X ONCE IV Last administered on 08:56; Start 02/17/17 at 08:15; Stop 02/17/17 at 09:14; Status DC Piperacillin Sod/ Tazobactam Sod 2.25 gm/Sodium Chloride 50 ml @ 100 mls/hr Q8HRS IV Last administered on 02/23/17 12:20; Start 02/17/17 at 08:45 Magnesium Sulfate/ Dextrose (Magnesium Sulfate PREMIX 2GM) 50 ml @ 25 mls/hr 1X ONCE IV Last administered on 02/17/17 09:30; Start 02/17/17 at 09:00; Stop 02/17/17 at 10:59; Status DC Fentanyl Citrate 50 mcg 50 mcg PRN Q2HR PRN IV PAIN Last administered on 02:37; Start 02/17/17 at 09:00 Sodium Chloride (Iv Sodium Chloride 0.9% 1000ml Bag) 1,000 ml @ 1,000 mls/hr 1X ONCE IV Last administered on 02/17/17 08:57; Start 02/17/17 at 09:00; Stop 02/17/17 at 09:59; Status DC Heparin Sodium (Porcine) (Heparin Sodium) 10,000 unit STK-MED ONCE .ROUTE ; Start 02/17/17 at 09:23; Stop 02/17/17 at 09:24; Status DC Lidocaine/Sodium Bicarbonate 20 ml 20 ml STK-MED ONCE IJ ; Start 02/17/17 at 09: 23; Stop 02/17/17 at 09:24; Status DC Heparin Sodium/ Sodium Chloride 500 ml @ As Directed STK-MED ONCE .ROUTE ; Start 02/17/17 at 09:23; Stop 02/17/17 at 09:24; Status DC Lidocaine/Sodium Bicarbonate (Buffered Lidocaine 1%) 3 ml 1X ONCE IJ ; Start at 09:30; Stop 02/17/17 at 09:35; Status DC Heparin Sodium/ Sodium Chloride 60 unit 1X ONCE IV ; Start 02/17/17 at 09:30; Stop 02/17/17 at 09:35; Status DC Heparin Sodium (Porcine) (Heparin Sodium) 2,500 unit 1X ONCE INT CAT ; Start at 09:30; Stop 02/17/17 at 09:35; Status DC Sodium Bicarbonate 50 meq STK-MED ONCE .ROUTE ; Start 02/17/17 at 09:42; Stop at 09:43; Status DC Sodium Bicarbonate 100 meq 100 meq 1X ONCE IV Last administered on 02/17/17 09:51; Start 02/17/17 at 09:45; Stop 02/17/17 at 09:48; Status DC Sodium Bicarbonate 150 meq/Dextrose 1,150 ml @ 150 mls/hr Q7H40M IV Last administered on 02/17/17 10:34; Start 02/17/17 at 09:45; Stop 02/17/17 at 18:05 ; Status DC Vasopressin/ Dextrose (Vasostrict) 102 ml @ 6 mls/hr ONCE ONCE IV Last administered on 02/17/17 10:34; Start 02/17/17 at 10:00; Stop 02/18/17 at 02:59 ; Status DC Hydrocortisone Sodium Succinate (Solu-Cortef) 100 mg Q8HRS IV ; Start 02/17/17 at 10:30; Stop 02/17/17 at 10:30; Status DC Vancomycin HCl (Vanco Per Pharmacy) 1 each PRN DAILY PRN MC SEE COMMENTS Last administered on 02/17/17 10:28; Start 02/17/17 at 10:15; Stop 02/18/17 at 12:50 ; Status DC Lidocaine/Sodium Bicarbonate (Buffered Lidocaine 1%) 3 ml 1X ONCE IJ ; Start at 10:15; Stop 02/17/17 at 10:16; Status DC Heparin Sodium/ Sodium Chloride 60 unit 1X ONCE IV ; Start 02/17/17 at 10:15; Stop 02/17/17 at 10:16; Status DC Heparin Sodium (Porcine) (Heparin Sodium) 2,500 unit 1X ONCE INT CAT ; Start at 10:15; Stop 02/17/17 at 10:16; Status DC Hydrocortisone Sodium Succinate 100 mg 100 mg ONCE ONCE IV Last administered on 02/17/17 10:36; Start 02/17/17 at 10:30; Stop 02/17/17 at 10:31; Status DC Vasopressin 40 unit/Dextrose 102 ml @ 6 mls/hr CONT PRN IV SEE I/O RECORD Last administered on 02/18/17 13:53; Start 02/17/17 at 10:15; Stop 02/23/17 at 07:49 ; Status DC Vancomycin HCl/ Sodium Chloride (Iv Sodium Chloride 0.9% 500ml Bag) 500 ml @ 250 mls/hr ONCE ONCE IV Last administered on 02/17/17 13:53; Start 02/17/17 at 10:30; Stop 02/17/17 at 12:29; Status DC Hydrocortisone Sodium Succinate (Solu-Cortef) 100 mg Q8HRS IV Last administered on 02/23/17 06:07; Start 02/17/17 at 14:00; Stop 02/23/17 at 07:49 ; Status DC Vancomycin HCl 1 each 1X ONCE MC ; Start 02/19/17 at 10:30; Stop 02/19/17 at 10 :30; Status DC Chlorhexidine Gluconate 15 ml 15 ml BID SWSP Last administered on 02/23/17 08: 13; Start 02/17/17 at 21:00 Sodium Chloride 1,000 ml @ 100 mls/hr Q10H IV Last administered on 02/17/17 13:53; Start 02/17/17 at 12:15; Stop 02/17/17 at 18:58; Status DC Sodium Chloride (Iv Sodium Chloride 0.9% 1000ml Bag) 1,000 ml @ 1,000 mls/hr Q1H PRN IV hypotension; Start 02/17/17 at 12:28; Stop 02/17/17 at 18:27; Status DC Sodium Chloride (Normal Saline Flush) 10 ml 1X PRN PRN IV AP catheter pack; Start 02/17/17 at 12:30; Stop 02/18/17 at 12:29; Status DC Sodium Chloride (Normal Saline Flush) 10 ml 1X PRN PRN IV [employer] catheter pack; Start 02/17/17 at 12:30; Stop 02/18/17 at 12:29; Status DC Info (PHARMACY MONITORING -- do not chart) 1 each PRN DAILY PRN MC SEE COMMENTS ; Start 02/17/17 at 12:30 Info (PHARMACY MONITORING -- do not chart) 1 each PRN DAILY PRN MC SEE COMMENTS ; Start 02/17/17 at 12:30; Status UNV Pantoprazole Sodium 40 mg 40 mg DAILY IVP Last administered on 02/23/17 08:12 ; Start 02/18/17 at 09:00 Albumin Human 50 ml @ 50 mls/hr 1X ONCE IV Last administered on 02/17/17 18: 58; Start 02/17/17 at 18:45; Stop 02/17/17 at 19:44; Status DC Sodium Chloride 1,000 ml @ 125 mls/hr 1X ONCE IV ; Start 02/17/17 at 18:45; Stop 02/18/17 at 09:15; Status DC Sodium Chloride 1,000 ml @ 125 mls/hr Q8H IV Last administered on 02/18/17 05 :42; Start 02/17/17 at 19:00; Stop 02/18/17 at 09:15; Status DC Sodium Chloride 1,000 ml @ 1,000 mls/hr Q1H PRN IV hypotension; Start 02/18/17 at 07:47; Stop 02/18/17 at 13:46; Status DC Albumin Human (Albuminar) 200 ml @ 200 mls/hr 1X PRN PRN IV Hypotension; Start 02/18/17 at 08:00; Stop 02/18/17 at 13:59; Status DC Acetaminophen (Tylenol) 500 mg 1X PRN PRN PO MILD PAIN / TEMP; Start 02/18/17 at 08:00; Stop 02/19/17 at 07:59; Status DC Diphenhydramine HCl (Benadryl) 25 mg 1X PRN PRN IV ITCHING; Start 02/18/17 at 08:00; Stop 02/19/17 at 07:59; Status DC Diphenhydramine HCl (Benadryl) 25 mg 1X PRN PRN IV ITCHING; Start 02/18/17 at 08:00; Stop 02/19/17 at 07:59; Status DC Labetalol HCl (Normodyne) 10 mg PRN Q1HR PRN IVP SBP > 180; Start 02/18/17 at 08:00; Stop 02/19/17 at 07:59; Status DC Clonidine HCl 0.1 mg 0.1 mg 1X PRN PRN PO SBP > 180; Start 02/18/17 at 08:00; Stop 02/19/17 at 07:59; Status DC Sodium Chloride (Iv Sodium Chloride 0.9% 1000ml Bag) 1,000 ml @ 400 mls/hr Q2H30M PRN IV PATENCY; Start 02/18/17 at 07:47; Stop 02/18/17 at 19:46; Status DC Info 1 each 1 each PRN DAILY PRN MC SEE COMMENTS; Start 02/18/17 at 08:00; Status UNV Magnesium Sulfate/ Dextrose 50 ml @ 25 mls/hr PRN DAILY PRN IV for Mag < 1.7 on am labs Last administered on 02/18/17 11:16; Start 02/18/17 at 08:00 Propofol 100 ml @ As Directed STK-MED ONCE IV ; Start 02/18/17 at 11:47; Stop 02/18/17 at 11:48; Status DC Propofol (Diprivan) 100 ml @ 0 mls/hr CONT PRN IV SEE I/O RECORD Last administered on 02/23/17 06:06; Start 02/18/17 at 12:45 Insulin Aspart (Novolog) 0-7 UNITS Q6HRS SQ Last administered on 02/23/17 12: 25; Start 02/19/17 at 00:00 Dextrose 12.5 gm 12.5 gm PRN Q15MIN PRN IV SEE COMMENTS; Start 02/18/17 at 21: 00 Magnesium Sulfate/ Dextrose 50 ml @ 25 mls/hr PRN DAILY PRN IV for Mag < 1.7 on am labs; Start 02/19/17 at 07:45; Stop 02/19/17 at 10:20; Status DC Potassium Chloride 50 ml @ 50 mls/hr PRN Q6HRS PRN IV For K < 3.7; Start at 07:45 Potassium Chloride 50 ml @ 50 mls/hr PRN Q2HR PRN IV total of 40mEq for K < 3.5 Last administered on 02/22/17 12:11; Start 02/19/17 at 07:45 Calcium Chloride 2000 mg/Sodium Chloride 120 ml @ 240 mls/hr 1X ONCE IV ; Start 02/19/17 at 08:00; Stop 02/19/17 at 08:29; Status DC Albumin Human (Albuminar) 100 ml @ 100 mls/hr TID IV Last administered on 02/20 20:51; Start 02/19/17 at 09:00; Stop 02/20/17 at 21:59; Status DC Bupropion HCl (Wellbutrin) 75 mg BID NG Last administered on 02/23/17 08:12; Start 02/19/17 at 12:00 Citalopram Hydrobromide 20 mg 20 mg DAILY NG Last administered on 02/23/17 08: 12; Start 02/19/17 at 12:00 Heparin Sodium/ Dextrose 500 ml @ 20 mls/hr CONT PRN IV SEE I/O RECORD Last administered on 02/22/17 17:53; Start 02/19/17 at 13:15 Info 1 each 1 each PRN DAILY PRN MC SEE COMMENTS Last administered on 13:42; Start 02/20/17 at 07:45 Potassium Chloride (KCl Premix 20meq) 50 ml @ 50 mls/hr Q1HR IV Last administered on 02/20/17 09:48; Start 02/20/17 at 09:00; Stop 02/20/17 at 10:59 ; Status DC Metoprolol Tartrate (Lopressor) 2.5 mg 1X ONCE IVP Last administered on 14:19; Start 02/20/17 at 14:00; Stop 02/20/17 at 14:01; Status DC Metoprolol Tartrate (Lopressor) 2.5 mg Q6HRS IVP Last administered on 12:21; Start 02/20/17 at 14:00 Albuterol/ Ipratropium (Duoneb) 3 ml RTQID NEB Last administered on 02/23/17 11:47; Start 02/21/17 at 12:00 Insulin Detemir (Levemir) 10 units QHS SQ Last administered on 02/21/17 21:03 ; Start 02/21/17 at 21:00; Stop 02/22/17 at 12:39; Status DC Insulin Detemir (Levemir) 30 units QHS SQ Last administered on 02/22/17 21:07 ; Start 02/22/17 at 21:00 Aspirin (Ecotrin) 81 mg DAILYWBKFT PO ; Start 02/23/17 at 08:00; Stop 02/23/17 at 08:00; Status DC Hydrocortisone Sodium Succinate (Solu-Cortef) 50 mg Q8HRS IV ; Start 02/23/17 at 14:00 Aspirin 81 mg 81 mg DAILYWBKFT PO Last administered on 02/23/17 08:13; Start 02/23/17 at 08:00 Nitroglycerin/ Dextrose (Nitroglycerin Drip) 250 ml @ 0 mls/hr 1X ONCE IV ; Start 02/23/17 at 12:30; Stop 02/23/17 at 12:31; Status DC Active Scripts Active Friend 7.5-325 Tablet (Acetaminophen/Hydrocodone Bitart) 1 Each Tablet 1 Tab PO PRN Q6HRS PRN Reported Requip (Ropinirole Hcl) 1 Mg Tablet 4 Mg PO DAILY Aspir 81 (Aspirin) 81 Mg Tablet.dr 81 Mg PO DAILY Wellbutrin Sr (Bupropion Hcl) 150 Mg Tablet.er 150 Mg PO DAILY Toprol Xl (Metoprolol Succinate) 25 Mg Tab.er.24h 12 Mg PO DAILY Lasix (Furosemide) 40 Mg Tablet 40 Mg PO DAILY Pravastatin Sodium 40 Mg Tablet 40 Mg PO DAILY Pantoprazole Sodium 40 Mg Tablet.dr 40 Mg PO DAILY Doxycycline Hyclate 100 Mg Capsule 1 Cap PO BID Hydrocodone-Apap 5-325 (Hydrocodone Bit/Acetaminophen) 1 Each Tablet 1-2 Tab PO Q4-6HRS PRN Levothyroxine Sodium 75 Mcg Tablet 1 Tab PO DAILY Citalopram Hbr (Citalopram Hydrobromide) 20 Mg Tablet 20 Mg PO DAILY Losartan Potassium 50 Mg Tablet 50 Mg PO DAILY Metformin Hcl 500 Mg Tablet 1 Tab PO TIDWMEALS Vitals/I & O Vital Sign - Last 24 Hours 02/22/17 02/22/17 02/22/17 02/22/17 14:00 15:00 16:00 16:00 Temp 98.0 98.0 Pulse 77 76 82 80 Resp 14 14 14 B/P 128/63 116/58 152/71 142/70 Pulse Ox 97 97 97 O2 Delivery Ventilator Ventilator Ventilator 02/22/17 02/22/17 02/22/17 02/22/17 16:00 16:04 17:00 17:51 Pulse 76 85 Resp 14 B/P 135/85 154/72 Pulse Ox 97 97 O2 Delivery Mechanical Ventilator Ventilator Ventilator 02/22/17 02/22/17 02/22/17 02/22/17 18:00 18:11 19:27 19:45 Temp 98.6 98.6 Pulse 75 82 Resp 14 18 B/P 154/94 140/88 Pulse Ox 96 96 96 96 O2 Delivery Ventilator Ventilator Ventilator Ventilator 02/22/17 02/22/17 02/22/17 02/22/17 19:45 19:46 20:00 21:00 Pulse 86 83 78 Resp 18 18 14 B/P 146/74 147/63 118/51 Pulse Ox 96 96 97 O2 Delivery Mechanical Ventilator Ventilator Ventilator Ventilator 02/22/17 02/22/17 02/22/17 02/22/17 21:00 22:00 23:00 23:00 Pulse 75 87 Resp 14 14 B/P 124/55 148/66 Pulse Ox 97 97 97 97 O2 Delivery Ventilator Ventilator Ventilator Ventilator 02/23/17 02/23/17 02/23/17 02/23/17 00:00 00:00 00:36 00:51 Temp 98.9 98.9 Pulse 81 80 Resp 14 B/P 162/74 163/72 Pulse Ox 97 97 O2 Delivery Ventilator Mechanical Ventilator Ventilator 02/23/17 02/23/17 02/23/17 02/23/17 01:00 02:00 03:00 03:04 Pulse 72 82 80 Resp 14 14 14 B/P 116/53 156/98 181/88 Pulse Ox 97 98 98 98 O2 Delivery Ventilator Ventilator Ventilator Ventilator 02/23/17 02/23/17 02/23/17 02/23/17 04:00 04:00 05:00 05:00 Temp 98.6 98.6 Pulse 79 79 Resp 14 14 B/P 147/79 150/70 Pulse Ox 97 97 97 O2 Delivery Ventilator Mechanical Ventilator Ventilator Ventilator 02/23/17 02/23/17 02/23/17 02/23/17 06:07 06:11 07:26 09:05 Pulse 79 80 Resp 15 B/P 158/73 160/75 Pulse Ox 97 96 96 O2 Delivery Ventilator Ventilator Ventilator 02/23/17 02/23/17 11:48 12:21 Pulse 76 B/P 131/78 Pulse Ox 96 O2 Delivery Ventilator Intake and Output 02/22/17 02/22/17 02/23/17 15:00 23:00 07:00 Intake Total 5 ml 100 ml 1508 ml Output Total 465 ml 625 ml 425 ml Balance -460 ml -525 ml 1083 ml Nutrition Consultation Dietary Evaluation: Comments: Rec. TF's with Peptamen AF, goal rate 55 ml/hr start at 15 ml/hr, increase by 15 ml/hr q8h to goal rate flushes PRN while on IVF's Expected Outcomes/Goals: Tolerate TF's at goal rate Malnutrition Findings: Reduced Grain Trimmer Strength: N/A Malnutrition related to morbid: No Weight Status: Obese OLIVIA MIR III DO Feb 23, 2017 13:45
--- NOTE | 2017-02-23 13:54 | PDOC ---
PULMONARY PROGRESS NOTES Subjective pt less anxious on PS Vitals Vital Signs Date Time Temp Pulse Resp B/P Pulse Ox O2 Delivery O2 Flow Rate FiO2 02/23/17 12:21 76 131/78 02/23/17 11:48 96 Ventilator 02/23/17 06:11 15 02/23/17 04:00 98.6 98.6 Lungs: Clear, Other (No chest retractions were present.) Cardiovascular: S1, S2 Abdomen: Soft Extremities: No Edema Skin: Warm Labs Laboratory Tests Test 02/21/17 17:36 02/21/17 21:02 02/22/17 00:16 02/22/17 05:15 Glucose (Fingerstick) 342mg/dL (70-99) 277mg/dL (70-99) 259mg/dL (70-99) 314mg/dL (70-99) Test 02/22/17 05:30 02/22/17 07:30 02/22/17 12:14 02/22/17 17:52 White Blood Count 6.9x10^3/uL (4.0-11.0) Red Blood Count 4.28x10^6/uL (3.50-5.40) Hemoglobin 10.1g/dL (12.0-15.5) Hematocrit 32.9% (36.0-47.0) Mean Corpuscular Volume 77fL (79-100) Mean Corpuscular Hemoglobin 24pg (25-35) Mean Corpuscular Hemoglobin Concent 31g/dL (31-37) Red Cell Distribution Width 22.6% (11.5-14.5) Platelet Count 110x10^3/uL (140-400) Neutrophils (%) (Auto) 87% (31-73) Lymphocytes (%) (Auto) 6% (24-48) Monocytes (%) (Auto) 7% (0-9) Eosinophils (%) (Auto) 0% (0-3) Basophils (%) (Auto) 0% (0-3) Neutrophils # (Auto) 6.0x10^3uL (1.8-7.7) Lymphocytes # (Auto) 0.4x10^3/uL (1.0-4.8) Monocytes # (Auto) 0.5x10^3/uL (0.0-1.1) Eosinophils # (Auto) 0.0x10^3/uL (0.0-0.7) Basophils # (Auto) 0.0x10^3/uL (0.0-0.2) Heparin Anti-Xa Act, Unfractionated 0.54IU/mL (0.30-0.70) Sodium Level 139mmol/L (136-145) Potassium Level 3.4mmol/L (3.5-5.1) Chloride Level 100mmol/L (98-107) Carbon Dioxide Level 31mmol/L (21-32) Anion Gap 8 (6-14) Blood Urea Nitrogen 52mg/dL (7-20) Creatinine 1.4mg/dL (0.6-1.0) Estimated GFR (Cockcroft-Gault) 38.1 Glucose Level 328mg/dL (70-99) Calcium Level 8.6mg/dL (8.5-10.1) Phosphorus Level 3.2mg/dL (2.6-4.7) Magnesium Level 2.0mg/dL (1.8-2.4) Creatine Kinase 127U/L (26-192) Albumin 3.3g/dL (3.4-5.0) O2 Saturation 97% (92-99) Arterial Blood pH 7.45 (7.35-7.45) Arterial Blood pCO2 at Patient Temp 44mmHg (35-46) Arterial Blood pO2 at Patient Temp 95mmHg (65-108) Arterial Blood HCO3 30mmol/L (21-28) Arterial Blood Base Excess 5mmol/L (-3-3) FiO2 40 Glucose (Fingerstick) 366mg/dL (70-99) 357mg/dL (70-99) Test 02/22/17 21:04 02/23/17 00:38 02/23/17 06:04 02/23/17 06:15 Glucose (Fingerstick) 317mg/dL (70-99) 324mg/dL (70-99) 320mg/dL (70-99) White Blood Count 10.0x10^3/uL (4.0-11.0) Red Blood Count 4.49x10^6/uL (3.50-5.40) Hemoglobin 10.7g/dL (12.0-15.5) Hematocrit 34.2% (36.0-47.0) Mean Corpuscular Volume 76fL (79-100) Mean Corpuscular Hemoglobin 24pg (25-35) Mean Corpuscular Hemoglobin Concent 31g/dL (31-37) Red Cell Distribution Width 22.9% (11.5-14.5) Platelet Count 128x10^3/uL (140-400) Neutrophils (%) (Auto) 90% (31-73) Lymphocytes (%) (Auto) 3% (24-48) Monocytes (%) (Auto) 7% (0-9) Eosinophils (%) (Auto) 0% (0-3) Basophils (%) (Auto) 1% (0-3) Neutrophils # (Auto) 9.0x10^3uL (1.8-7.7) Lymphocytes # (Auto) 0.3x10^3/uL (1.0-4.8) Monocytes # (Auto) 0.7x10^3/uL (0.0-1.1) Eosinophils # (Auto) 0.0x10^3/uL (0.0-0.7) Basophils # (Auto) 0.1x10^3/uL (0.0-0.2) Sodium Level 137mmol/L (136-145) Potassium Level 3.8mmol/L (3.5-5.1) Chloride Level 100mmol/L (98-107) Carbon Dioxide Level 30mmol/L (21-32) Anion Gap 7 (6-14) Blood Urea Nitrogen 52mg/dL (7-20) Creatinine 1.2mg/dL (0.6-1.0) Estimated GFR (Cockcroft-Gault) 45.5 Glucose Level 346mg/dL (70-99) Calcium Level 8.8mg/dL (8.5-10.1) Phosphorus Level 3.3mg/dL (2.6-4.7) Magnesium Level 2.3mg/dL (1.8-2.4) Creatine Kinase 110U/L (26-192) Albumin 3.4g/dL (3.4-5.0) Test 02/23/17 06:16 02/23/17 07:25 02/23/17 12:14 Heparin Anti-Xa Act, Unfractionated 0.91IU/mL (0.30-0.70) O2 Saturation 97% (92-99) Arterial Blood pH 7.44 (7.35-7.45) Arterial Blood pCO2 at Patient Temp 43mmHg (35-46) Arterial Blood pO2 at Patient Temp 95mmHg (65-108) Arterial Blood HCO3 29mmol/L (21-28) Arterial Blood Base Excess 4mmol/L (-3-3) FiO2 40 Glucose (Fingerstick) 340mg/dL (70-99) Laboratory Tests Test 02/22/17 17:52 02/22/17 21:04 02/23/17 00:38 02/23/17 06:04 Glucose (Fingerstick) 357mg/dL (70-99) 317mg/dL (70-99) 324mg/dL (70-99) 320mg/dL (70-99) Test 02/23/17 06:15 02/23/17 06:16 02/23/17 07:25 02/23/17 12:14 White Blood Count 10.0x10^3/uL (4.0-11.0) Red Blood Count 4.49x10^6/uL (3.50-5.40) Hemoglobin 10.7g/dL (12.0-15.5) Hematocrit 34.2% (36.0-47.0) Mean Corpuscular Volume 76fL (79-100) Mean Corpuscular Hemoglobin 24pg (25-35) Mean Corpuscular Hemoglobin Concent 31g/dL (31-37) Red Cell Distribution Width 22.9% (11.5-14.5) Platelet Count 128x10^3/uL (140-400) Neutrophils (%) (Auto) 90% (31-73) Lymphocytes (%) (Auto) 3% (24-48) Monocytes (%) (Auto) 7% (0-9) Eosinophils (%) (Auto) 0% (0-3) Basophils (%) (Auto) 1% (0-3) Neutrophils # (Auto) 9.0x10^3uL (1.8-7.7) Lymphocytes # (Auto) 0.3x10^3/uL (1.0-4.8) Monocytes # (Auto) 0.7x10^3/uL (0.0-1.1) Eosinophils # (Auto) 0.0x10^3/uL (0.0-0.7) Basophils # (Auto) 0.1x10^3/uL (0.0-0.2) Sodium Level 137mmol/L (136-145) Potassium Level 3.8mmol/L (3.5-5.1) Chloride Level 100mmol/L (98-107) Carbon Dioxide Level 30mmol/L (21-32) Anion Gap 7 (6-14) Blood Urea Nitrogen 52mg/dL (7-20) Creatinine 1.2mg/dL (0.6-1.0) Estimated GFR (Cockcroft-Gault) 45.5 Glucose Level 346mg/dL (70-99) Calcium Level 8.8mg/dL (8.5-10.1) Phosphorus Level 3.3mg/dL (2.6-4.7) Magnesium Level 2.3mg/dL (1.8-2.4) Creatine Kinase 110U/L (26-192) Albumin 3.4g/dL (3.4-5.0) Heparin Anti-Xa Act, Unfractionated 0.91IU/mL (0.30-0.70) O2 Saturation 97% (92-99) Arterial Blood pH 7.44 (7.35-7.45) Arterial Blood pCO2 at Patient Temp 43mmHg (35-46) Arterial Blood pO2 at Patient Temp 95mmHg (65-108) Arterial Blood HCO3 29mmol/L (21-28) Arterial Blood Base Excess 4mmol/L (-3-3) FiO2 40 Glucose (Fingerstick) 340mg/dL (70-99) Medications Active Scripts Medications Dose Route/Sig Days Date Category Requip (Ropinirole Hcl) 1 Mg Tablet 4 Mg PO DAILY 02/14/17 Reported Aspir 81 (Aspirin) 81 Mg Tablet.dr 81 Mg PO DAILY 02/14/17 Reported Wellbutrin Sr (Bupropion Hcl) 150 Mg Tablet.er 150 Mg PO DAILY 02/14/17 Reported Toprol Xl (Metoprolol Succinate) 25 Mg Tab.er.24h 12 Mg PO DAILY 02/14/17 Reported Lasix (Furosemide) 40 Mg Tablet 40 Mg PO DAILY 02/14/17 Reported Pravastatin Sodium 40 Mg Tablet 40 Mg PO DAILY 02/14/17 Reported Pantoprazole Sodium 40 Mg Tablet.dr 40 Mg PO DAILY 02/14/17 Reported [place] 7.5-325 Tablet (Acetaminophen/Hydrocodone Bitart) 1 Each Tablet 1 Tab PO PRN Q6HRS PRN 12/06/14 Rx Doxycycline Hyclate 100 Mg Capsule 1 Cap PO BID 12/06/14 Reported Hydrocodone-Apap 5-325 (Hydrocodone Bit/Acetaminophen) 1 Each Tablet 1-2 Tab PO Q4-6HRS PRN 12/06/14 Reported Levothyroxine Sodium 75 Mcg Tablet 1 Tab PO DAILY 12/05/14 Reported Citalopram Hbr (Citalopram Hydrobromide) 20 Mg Tablet 20 Mg PO DAILY 12/05/14 Reported Losartan Potassium 50 Mg Tablet 50 Mg PO DAILY 12/05/14 Reported Metformin Hcl 500 Mg Tablet 1 Tab PO TIDWMEALS 12/05/14 Reported Comments cxr no change Impression . 1. Acute respiratory failure secondary to SEPTIC SHOCK 2. SEPTIC SHOCK, improved 3. Acute renal failure, improved no further HD needed 4. 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 Not been on chronic steroids. 5. Marked anion gap metabolic acidosis secondary to septic shock./renal failure 6. non-ST myocardial infarction. 7. Nutrition will start tube feeding 8. Abnormal cxr sec to pulmonary edema/ Pneumonia/old ILD Plan . WILL D/C DR HARDIN PROCEED WITH EXTUBATION FRIDAY AND PRN BIPAP SPOKE WITH AT BEDSIDE PT LESS ANXIOUS ON TRIAL TODAY NO HD NEEDED FOR NOW REPEAT CXR NO CHANGE MOSTLY CHRONIC FINDINGS 1. ABG noted 2. Broad spectrum antibiotics, per ID 3. pressors off 4. Hemodialysis per nephro 5. Chest x-ray, follow 6. E coli UTI 7. hold sedation, for trail 8. DVT prophylaxis. 9. Stress ulcer prophylaxis. 10. Hydrocortisone 100 mg IV q. 8 hours, start to wean now on 50mg 11. Echo report NOTED VITO FARRIS MD Feb 23, 2017 13:54
[2017-02-23 18:09] LABS: UR PROTEIN RD 39.9 mg/dL (Not Estab.)
[2017-02-23] MEDS: INSULIN DETEMIR 300 UNITS/3 ML INSULN.PEN. SQ SCH (21:21)
[2017-02-23] MEDS: HEPARIN 25,000UTS/500ML PREMIX 500 ML IV PRN (21:22)
[2017-02-24] VITALS (24 sets, daily range): BP systolic 111–176; BP diastolic 65–106
[2017-02-24] MEDS: METOPROLOL TARTRATE 5 MG/5 ML VIAL. IVP SCH ×5 (00:07→23:58)
[2017-02-24] MEDS: INSULIN ASPART 300 UNITS/3 ML INSULN.PEN SQ SCH ×4 (00:12→17:26)
[2017-02-24] MEDS: PIPERACILLIN/TAZOBACTAM 2.25 GM in IV NORMAL SALINE 50ML 50 ML IV SCH (06:33)
[2017-02-24] MEDS: PROPOFOL 100 ML IV PRN ×2 (06:33→06:49)
[2017-02-24] MEDS: HYDROCORTISONE SOD SUCC/PF 100 MG/2 ML VIAL. IV SCH (06:33)
[2017-02-24 06:54] LABS: BASO % 0 % (0-3); EOS % 0 % (0-3); HEMATOCRIT 33.7 % (36.0-47.0); HEMOGLOBIN 10.2 g/dL (12.0-15.5); LYMPH # 0.5 x10^3/uL (1.0-4.8); LYMPH % 5 % (24-48); MEAN CORPUSCULAR HEMOGLOBIN 23 pg (25-35); MEAN CORPUSCULAR HGB CONC 30 g/dL (31-37); MEAN CORPUSCULAR VOLUME 77 fL (79-100); MONO % 8 % (0-9); NEUT % 88 % (31-73); PLATELET COUNT 157 x10^3/uL (140-400); RED BLOOD COUNT 4.36 x10^6/uL (3.50-5.40); RED CELL DISTRIBUTION WIDTH 23.3 % (11.5-14.5); WHITE BLOOD COUNT 11.5 x10^3/uL (4.0-11.0)
[2017-02-24] MEDS: IPRATRPIUM/ALBUTEROL 0.5/2.5MG 3 ML NEBU. NEB SCH ×4 (07:04→19:42)
[2017-02-24 07:18] LABS: HCO3 ABG 30 mmol/L (21-28); PCO2 ABG 42 mmHg (35-46); PH ABG 7.47 (7.35-7.45); PO2 ABG 78 mmHg (65-108); SAT O2 ABG 95 % (92-99)
[2017-02-24 07:21] LABS: FIO2 ABG 40
[2017-02-24 07:40] LABS: ALBUMIN 3.1 g/dL (3.4-5.0); CALCIUM 8.6 mg/dL (8.5-10.1); PHOSPHORUS 3.4 mg/dL (2.6-4.7)
[2017-02-24 07:41] LABS: CREATININE 1.1 mg/dL (0.6-1.0); GFR 50.3; POTASSIUM 3.7 mmol/L (3.5-5.1)
--- NOTE | 2017-02-24 08:23 | PDOC ---
Infectious Disease Note Subjective Subjective Remains intubated. FiO2 40% Sedated No fever Tube feedings ROS ROS unable to do Vital Sign Vital Signs Vital Signs Date Time Temp Pulse Resp B/P Pulse Ox O2 Delivery O2 Flow Rate FiO2 02/24/17 07:04 96 Ventilator 02/24/17 07:00 73 14 125/82 02/24/17 04:00 98.2 98.2 Physical Exam PHYSICAL EXAM GENERAL: NAD, on vent HEENT: PERRL, OC/OP NECK: Supple, no JVD, no LN LUNGS: Clear HEART: S1S2, no gallop, no murmur ABD: Soft, NT, no organomegaly, no rebound EXT: No edema, no cyanosis [employer]: sedated on vent SKIN: No rash IV: ok Labs Lab Laboratory Tests Test 02/23/17 10:16 02/23/17 12:14 02/23/17 14:30 02/23/17 17:46 Urine Protein 39.9mg/dL (Not Estab.) Urine Creatinine 50.6mg/dL (Not Estab.) Urine Protein/Creatinine Ratio 789mg/g creat (0-200) Glucose (Fingerstick) 340mg/dL (70-99) 252mg/dL (70-99) Heparin Anti-Xa Act, Unfractionated 0.53IU/mL (0.30-0.70) Test 02/23/17 21:08 02/23/17 21:10 02/24/17 00:09 02/24/17 06:20 Glucose (Fingerstick) 269mg/dL (70-99) 304mg/dL (70-99) Heparin Anti-Xa Act, Unfractionated 0.48IU/mL (0.30-0.70) 0.51IU/mL (0.30-0.70) White Blood Count 11.5x10^3/uL (4.0-11.0) Red Blood Count 4.36x10^6/uL (3.50-5.40) Hemoglobin 10.2g/dL (12.0-15.5) Hematocrit 33.7% (36.0-47.0) Mean Corpuscular Volume 77fL (79-100) Mean Corpuscular Hemoglobin 23pg (25-35) Mean Corpuscular Hemoglobin Concent 30g/dL (31-37) Red Cell Distribution Width 23.3% (11.5-14.5) Platelet Count 157x10^3/uL (140-400) Neutrophils (%) (Auto) 88% (31-73) Lymphocytes (%) (Auto) 5% (24-48) Monocytes (%) (Auto) 8% (0-9) Eosinophils (%) (Auto) 0% (0-3) Basophils (%) (Auto) 0% (0-3) Neutrophils # (Auto) 10.1x10^3uL (1.8-7.7) Lymphocytes # (Auto) 0.5x10^3/uL (1.0-4.8) Monocytes # (Auto) 0.9x10^3/uL (0.0-1.1) Eosinophils # (Auto) 0.0x10^3/uL (0.0-0.7) Basophils # (Auto) 0.0x10^3/uL (0.0-0.2) Sodium Level 136mmol/L (136-145) Potassium Level 3.7mmol/L (3.5-5.1) Chloride Level 100mmol/L (98-107) Carbon Dioxide Level 30mmol/L (21-32) Anion Gap 6 (6-14) Blood Urea Nitrogen 47mg/dL (7-20) Creatinine 1.1mg/dL (0.6-1.0) Estimated GFR (Cockcroft-Gault) 50.3 Glucose Level 310mg/dL (70-99) Calcium Level 8.6mg/dL (8.5-10.1) Phosphorus Level 3.4mg/dL (2.6-4.7) Magnesium Level 2.1mg/dL (1.8-2.4) Creatine Kinase 79U/L (26-192) Albumin 3.1g/dL (3.4-5.0) Test 02/24/17 06:39 02/24/17 07:05 Glucose (Fingerstick) 282mg/dL (70-99) O2 Saturation 95% (92-99) Arterial Blood pH 7.47 (7.35-7.45) Arterial Blood pCO2 at Patient Temp 42mmHg (35-46) Arterial Blood pO2 at Patient Temp 78mmHg (65-108) Arterial Blood HCO3 30mmol/L (21-28) Arterial Blood Base Excess 6mmol/L (-3-3) FiO2 40 Objective Assessment ? sepsis vs SIRS. Received Solu-Medrol in [facility]. On Solu-Cortef. Off pressors NSTEMI Ecoli in urine 02/17 ? colonization - Res to Pip but she is responding so likely sens to Zosyn Hyperglycemia ? Aspiration - intubated- h/o Pulm fibrosis Lactic acidosis - improved BRADLEY - dehydration. Getting HD Transaminitis H/o elevated CORA DM and gastroparesis Plan Plan of Care Continue Zosyn Monitor labs Supportive ELIAS AMEZQUITA MD February 24, 2017 08:23
[2017-02-24] MEDS: PANTOPRAZOLE IV PUSH 40 MG VIAL. IVP SCH (08:32)
[2017-02-24] MEDS: CITALOPRAM 20 MG TABLET. NG SCH (08:32)
[2017-02-24] MEDS: buPROPion 75 MG TABLET. NG SCH ×2 (08:32→20:55)
[2017-02-24] MEDS: ASPIRIN CHEWABLE 81 MG TABLET. PO SCH (08:32)
[2017-02-24] MEDS: CHLORHEXIDINE 0.12% 15 ML MOUTHWASH. SWSP SCH ×2 (08:32→20:54)
[2017-02-24] MEDS: LEVOTHYROXINE SODIUM 37.5 MCG in IV NORMAL SALINE 50ML 5 ML IVP SCH (08:33)
--- NOTE | 2017-02-24 09:44 | PDOC ---
SUBJECTIVE ROS BRADLEY/ edema remains sedated and intubated OBJECTIVE Vital Signs Vital Signs Date Time Temp Pulse Resp B/P Pulse Ox O2 Delivery O2 Flow Rate FiO2 02/24/17 09:00 74 14 131/83 95 Ventilator 02/24/17 08:00 98.6 98.6 I & 0 Intake and Output 02/24/17 07:00 Intake Total 3390.9 ml Output Total 1725 ml Balance 1665.9 ml IV Total 1005.9 ml Tube Feeding 1605 ml Other 780 ml Output Urine Total 1725 ml Gastric Drainage Total 0 ml PHYSICAL EXAM Physical Exam GEN: SEdated and intubated; In no distress EYES: Sclera anicteric, Conjunctiva Normal EN: No EN Drainage, Mucous Membranes moist NECK: no JVD, + JVP, Supple, no Thyromegaly CVS: S1S2, no Murmur, No Gallop, No Rub, + Edema RESP: rare Rales, no Rhonchi,no Acc. Muscle Use GI: BS + ve, NO Bruit, Non Tender, Non Distended : no CVA tenderness, no Suprapubic Tenderness DIAGNOSIS/ASSESSMENT ? Underlying CKD III due to DM / HTNsive / NS cannot be ruled out - will f/ upas OP Hyperglycemia - defer to Primary team to control Resp Failure - on vent - known Pulm Fibrosis - now worsening of CXR despite + ve fluid balance. Edema - wean hydrocortisone and reval. I suspect aggressive diuresis may worsen azotemia in setting of TF and recent BRADLEY so will be conservative with lasix unless needed for resp issues Anemia - Check Iron and reval Proteinuria - < 1gm as noted by ratio. Not sure if she has some residual hematuria from previous HTN - labile based on state/ depth of sedation; better after weaning hydrocortisone; watch trend for now Tendency to Low K - (? due to Zosyn and hydrocortisone) replace per sliding scale; wean hydrocortisone and reval. COMMENT/RELEVANT DATA Meds Current Medications Medications (Trade) Dose Ordered Sig/Janeen Start Time Stop Time Status Last Admin Dose Admin Acetaminophen (Tylenol) 500 mg 1X PRN PRN 02/18/17 08:00 02/19/17 07:59 DC Acetaminophen 650 mg 650 mg PRN Q6HRS PRN 02/17/17 02:00 Albumin Human (Albuminar) 100 ml @ 100 mls/hr TID 02/19/17 09:00 02/20/17 21:59 DC 02/20/17 20:51 100 MLS/HR Albuterol/ Ipratropium (Duoneb) 3 ml RTQID 02/21/17 12:00 02/24/17 07:04 3 ML Aspirin (Ecotrin) 81 mg [id number] 02/23/17 08:00 02/23/17 08:00 DC Aspirin 81 mg 81 mg [id number] 02/23/17 08:00 02/24/17 08:32 81 MG Bupropion HCl (Wellbutrin) 75 mg BID 02/19/17 12:00 02/24/17 08:32 75 MG Calcium Chloride 2000 mg/Sodium Chloride 120 ml @ 240 mls/hr 1X ONCE 02/19/17 08:00 02/19/17 08:29 DC Chlorhexidine Gluconate (Peridex) 15 ml BID 02/17/17 21:00 02/24/17 08:32 15 ML Citalopram Hydrobromide 20 mg 20 mg DAILY 02/19/17 12:00 02/24/17 08:32 20 MG Clonidine HCl 0.1 mg 0.1 mg 1X PRN PRN 02/18/17 08:00 02/19/17 07:59 DC Dextrose 12.5 gm 12.5 gm PRN Q15MIN PRN 02/18/17 21:00 Diphenhydramine HCl (Benadryl) 25 mg 1X PRN PRN 02/18/17 08:00 02/19/17 07:59 DC Fentanyl Citrate (Fentanyl 2ml Vial) 50 mcg PRN Q2HR PRN 02/17/17 09:00 02/22/17 02:37 50 MCG Heparin Sodium (Porcine) (Heparin Sodium) 2,500 unit 1X ONCE 02/17/17 10:15 02/17/17 10:16 DC Heparin Sodium/ Dextrose 500 ml @ 20 mls/hr CONT PRN 02/19/17 13:15 02/23/17 21:22 20 MLS/HR Heparin Sodium/ Sodium Chloride 60 unit 1X ONCE 02/17/17 10:15 02/17/17 10:16 DC Hydrocortisone Sodium Succinate (Solu-Cortef) 50 mg Q8HRS 02/23/17 14:00 02/24/17 06:33 50 MG Hydrocortisone Sodium Succinate 100 mg 100 mg ONCE ONCE 02/17/17 10:30 02/17/17 10:31 DC 02/17/17 10:36 100 MG Info (PHARMACY MONITORING -- do not chart) 1 each PRN DAILY PRN 02/17/17 12:30 UNV Info 1 each 1 each PRN DAILY PRN 02/20/17 07:45 02/22/17 13:42 1 EACH Insulin Aspart (Novolog) 0-7 UNITS Q6HRS 02/19/17 00:00 02/24/17 06:42 6 UNITS Insulin Detemir (Levemir) 30 units QHS 02/22/17 21:00 02/23/17 21:21 30 UNITS Labetalol HCl (Normodyne) 10 mg PRN Q1HR PRN 02/18/17 08:00 02/19/17 07:59 DC Levothyroxine Sodium/Sodium Chloride (Synthroid/Iv Sodium Chloride 0.9% 50ml) 5 ml @ 100 mls/hr DAILY 02/17/17 09:00 02/24/17 08:33 100 MLS/HR Lidocaine/Sodium Bicarbonate (Buffered Lidocaine 1%) 3 ml 1X ONCE 02/17/17 10:15 02/17/17 10:16 DC Magnesium Sulfate/ Dextrose 50 ml @ 25 mls/hr PRN DAILY PRN 02/19/17 07:45 02/19/17 10:20 DC Magnesium Sulfate/ Dextrose (Magnesium Sulfate PREMIX 2GM) 50 ml @ 25 mls/hr 1X ONCE 02/17/17 09:00 02/17/17 10:59 DC 02/17/17 09:30 25 MLS/HR Metoprolol Tartrate (Lopressor) 2.5 mg Q6HRS 02/20/17 14:00 02/24/17 06:33 2.5 MG Midazolam HCl 100 ml @ 0 mls/hr CONT PRN 02/17/17 02:30 02/17/17 20:34 5 MLS/HR Nitroglycerin/ Dextrose (Nitroglycerin Drip) 250 ml @ 0 mls/hr 1X ONCE 02/23/17 12:30 02/23/17 12:31 DC Norepinephrine Bitartrate 250 ml @ 0 mls/hr CONT PRN 02/17/17 06:15 02/18/17 11:15 7.5 MLS/HR Ondansetron HCl (Zofran) 4 mg PRN Q6HRS PRN 02/17/17 02:00 Pantoprazole Sodium (Protonix Vial) 40 mg TID 02/17/17 09:00 02/17/17 13:17 DC 02/17/17 08:56 40 MG Pantoprazole Sodium 40 mg 40 mg DAILY 02/18/17 09:00 02/24/17 08:32 40 MG Piperacillin Sod/ Tazobactam Sod 2.25 gm/Sodium Chloride 50 ml @ 100 mls/hr Q8HRS 02/17/17 08:45 02/24/17 06:33 100 MLS/HR Pneumococcal Polyvalent Vaccine 0.5 ml 0.5 ml ONCE ONCE 02/17/17 09:00 02/17/17 09:01 DC Pneumococcal Polyvalent Vaccine (Do NOT chart on this placeholder) 1 each 1X ONCE 02/17/17 06:00 02/17/17 06:01 UNV Potassium Chloride (KCl Premix 20meq) 50 ml @ 50 mls/hr Q1HR 02/20/17 09:00 02/20/17 10:59 DC 02/20/17 09:48 50 MLS/HR Propofol (Diprivan) 100 ml @ 0 mls/hr CONT PRN 02/18/17 12:45 02/24/17 06:49 15.351 MLS/HR Sodium Bicarbonate 100 meq 100 meq 1X ONCE 02/17/17 09:45 02/17/17 09:48 DC 02/17/17 09:51 100 MEQ Sodium Bicarbonate 150 meq/Dextrose 1,150 ml @ 150 mls/hr Q7H40M 02/17/17 09:45 02/17/17 18:05 DC 02/17/17 10:34 150 MLS/HR Sodium Polystyrene Sulfonate (Kayexalate) 30 gm 1X ONCE 02/17/17 02:45 02/17/17 02:46 DC 02/17/17 03:54 30 GM Sodium Bicarbonate 50 meq STK-MED ONCE 02/17/17 09:42 02/17/17 09:43 DC Sodium Chloride 1,000 ml @ 400 mls/hr Q2H30M PRN 02/18/17 07:47 02/18/17 19:46 DC Sodium Chloride (Iv Sodium Chloride 0.9% 1000ml Bag) 1,000 ml @ 1,000 mls/hr Q1H PRN 02/18/17 07:47 02/18/17 13:46 DC Sodium Chloride (Normal Saline Flush) 10 ml 1X PRN PRN 02/17/17 12:30 02/18/17 12:29 DC Vancomycin HCl 1 each 1X ONCE 02/19/17 10:30 02/19/17 10:30 DC Vancomycin HCl (Vanco Per Pharmacy) 1 each PRN DAILY PRN 02/17/17 10:15 02/18/17 12:50 DC 02/17/17 10:28 1 EACH Vancomycin HCl/ Sodium Chloride (Iv Sodium Chloride 0.9% 500ml Bag) 500 ml @ 250 mls/hr ONCE ONCE 02/17/17 10:30 02/17/17 12:29 DC 02/17/17 13:53 250 MLS/HR Vasopressin 40 unit/Dextrose 102 ml @ 6 mls/hr CONT PRN 02/17/17 10:15 02/23/17 07:49 DC 02/18/17 13:53 6 MLS/HR Vasopressin/ Dextrose (Vasostrict) 102 ml @ 6 mls/hr ONCE ONCE 02/17/17 10:00 02/18/17 02:59 DC 02/17/17 10:34 6 MLS/HR Lab Laboratory Tests Test 02/23/17 10:16 02/23/17 12:14 02/23/17 14:30 02/23/17 17:46 Urine Protein 39.9mg/dL (Not Estab.) Urine Creatinine 50.6mg/dL (Not Estab.) Urine Protein/Creatinine Ratio 789mg/g creat (0-200) Glucose (Fingerstick) 340mg/dL (70-99) 252mg/dL (70-99) Heparin Anti-Xa Act, Unfractionated 0.53IU/mL (0.30-0.70) Test 02/23/17 21:08 02/23/17 21:10 02/24/17 00:09 02/24/17 06:20 Glucose (Fingerstick) 269mg/dL (70-99) 304mg/dL (70-99) Heparin Anti-Xa Act, Unfractionated 0.48IU/mL (0.30-0.70) 0.51IU/mL (0.30-0.70) White Blood Count 11.5x10^3/uL (4.0-11.0) Red Blood Count 4.36x10^6/uL (3.50-5.40) Hemoglobin 10.2g/dL (12.0-15.5) Hematocrit 33.7% (36.0-47.0) Mean Corpuscular Volume 77fL (79-100) Mean Corpuscular Hemoglobin 23pg (25-35) Mean Corpuscular Hemoglobin Concent 30g/dL (31-37) Red Cell Distribution Width 23.3% (11.5-14.5) Platelet Count 157x10^3/uL (140-400) Neutrophils (%) (Auto) 88% (31-73) Lymphocytes (%) (Auto) 5% (24-48) Monocytes (%) (Auto) 8% (0-9) Eosinophils (%) (Auto) 0% (0-3) Basophils (%) (Auto) 0% (0-3) Neutrophils # (Auto) 10.1x10^3uL (1.8-7.7) Lymphocytes # (Auto) 0.5x10^3/uL (1.0-4.8) Monocytes # (Auto) 0.9x10^3/uL (0.0-1.1) Eosinophils # (Auto) 0.0x10^3/uL (0.0-0.7) Basophils # (Auto) 0.0x10^3/uL (0.0-0.2) Sodium Level 136mmol/L (136-145) Potassium Level 3.7mmol/L (3.5-5.1) Chloride Level 100mmol/L (98-107) Carbon Dioxide Level 30mmol/L (21-32) Anion Gap 6 (6-14) Blood Urea Nitrogen 47mg/dL (7-20) Creatinine 1.1mg/dL (0.6-1.0) Estimated GFR (Cockcroft-Gault) 50.3 Glucose Level 310mg/dL (70-99) Calcium Level 8.6mg/dL (8.5-10.1) Phosphorus Level 3.4mg/dL (2.6-4.7) Magnesium Level 2.1mg/dL (1.8-2.4) Creatine Kinase 79U/L (26-192) Albumin 3.1g/dL (3.4-5.0) Test 02/24/17 06:39 02/24/17 07:05 Glucose (Fingerstick) 282mg/dL (70-99) O2 Saturation 95% (92-99) Arterial Blood pH 7.47 (7.35-7.45) Arterial Blood pCO2 at Patient Temp 42mmHg (35-46) Arterial Blood pO2 at Patient Temp 78mmHg (65-108) Arterial Blood HCO3 30mmol/L (21-28) Arterial Blood Base Excess 6mmol/L (-3-3) FiO2 40 DELLA AMEZQUITA MD February 24, 2017 09:44
[2017-02-24] MEDS: ANTI-COAG MONITOR BY PHARMACY. MC PRN (09:53)
[2017-02-24 10:09] LABS: % SAT IRON 13 % (15-34); IRON,SERUM 45 ug/dL (50-170)
--- NOTE | 2017-02-24 10:28 | PDOC ---
PULMONARY PROGRESS NOTES Subjective Patient had periods of severe anxiety when off sedation cannot do adequate CPAP trials Vitals Vital Signs Date Time Temp Pulse Resp B/P Pulse Ox O2 Delivery O2 Flow Rate FiO2 02/24/17 10:00 80 14 115/74 96 Ventilator 02/24/17 08:00 98.6 98.6 Lungs: Other (decrease bs) Cardiovascular: S1, S2 Abdomen: Soft Extremities: No Edema Skin: Warm Labs Laboratory Tests Test 02/22/17 12:14 02/22/17 17:52 02/22/17 21:04 02/23/17 00:38 Glucose (Fingerstick) 366mg/dL (70-99) 357mg/dL (70-99) 317mg/dL (70-99) 324mg/dL (70-99) Test 02/23/17 06:04 02/23/17 06:15 02/23/17 06:16 02/23/17 07:25 Glucose (Fingerstick) 320mg/dL (70-99) White Blood Count 10.0x10^3/uL (4.0-11.0) Red Blood Count 4.49x10^6/uL (3.50-5.40) Hemoglobin 10.7g/dL (12.0-15.5) Hematocrit 34.2% (36.0-47.0) Mean Corpuscular Volume 76fL (79-100) Mean Corpuscular Hemoglobin 24pg (25-35) Mean Corpuscular Hemoglobin Concent 31g/dL (31-37) Red Cell Distribution Width 22.9% (11.5-14.5) Platelet Count 128x10^3/uL (140-400) Neutrophils (%) (Auto) 90% (31-73) Lymphocytes (%) (Auto) 3% (24-48) Monocytes (%) (Auto) 7% (0-9) Eosinophils (%) (Auto) 0% (0-3) Basophils (%) (Auto) 1% (0-3) Neutrophils # (Auto) 9.0x10^3uL (1.8-7.7) Lymphocytes # (Auto) 0.3x10^3/uL (1.0-4.8) Monocytes # (Auto) 0.7x10^3/uL (0.0-1.1) Eosinophils # (Auto) 0.0x10^3/uL (0.0-0.7) Basophils # (Auto) 0.1x10^3/uL (0.0-0.2) Sodium Level 137mmol/L (136-145) Potassium Level 3.8mmol/L (3.5-5.1) Chloride Level 100mmol/L (98-107) Carbon Dioxide Level 30mmol/L (21-32) Anion Gap 7 (6-14) Blood Urea Nitrogen 52mg/dL (7-20) Creatinine 1.2mg/dL (0.6-1.0) Estimated GFR (Cockcroft-Gault) 45.5 Glucose Level 346mg/dL (70-99) Calcium Level 8.8mg/dL (8.5-10.1) Phosphorus Level 3.3mg/dL (2.6-4.7) Magnesium Level 2.3mg/dL (1.8-2.4) Creatine Kinase 110U/L (26-192) Albumin 3.4g/dL (3.4-5.0) Heparin Anti-Xa Act, Unfractionated 0.91IU/mL (0.30-0.70) O2 Saturation 97% (92-99) Arterial Blood pH 7.44 (7.35-7.45) Arterial Blood pCO2 at Patient Temp 43mmHg (35-46) Arterial Blood pO2 at Patient Temp 95mmHg (65-108) Arterial Blood HCO3 29mmol/L (21-28) Arterial Blood Base Excess 4mmol/L (-3-3) FiO2 40 Test 02/23/17 10:16 02/23/17 12:14 02/23/17 14:30 02/23/17 17:46 Urine Protein 39.9mg/dL (Not Estab.) Urine Creatinine 50.6mg/dL (Not Estab.) Urine Protein/Creatinine Ratio 789mg/g creat (0-200) Glucose (Fingerstick) 340mg/dL (70-99) 252mg/dL (70-99) Heparin Anti-Xa Act, Unfractionated 0.53IU/mL (0.30-0.70) Test 02/23/17 21:08 02/23/17 21:10 02/24/17 00:09 02/24/17 06:20 Glucose (Fingerstick) 269mg/dL (70-99) 304mg/dL (70-99) Heparin Anti-Xa Act, Unfractionated 0.48IU/mL (0.30-0.70) 0.51IU/mL (0.30-0.70) White Blood Count 11.5x10^3/uL (4.0-11.0) Red Blood Count 4.36x10^6/uL (3.50-5.40) Hemoglobin 10.2g/dL (12.0-15.5) Hematocrit 33.7% (36.0-47.0) Mean Corpuscular Volume 77fL (79-100) Mean Corpuscular Hemoglobin 23pg (25-35) Mean Corpuscular Hemoglobin Concent 30g/dL (31-37) Red Cell Distribution Width 23.3% (11.5-14.5) Platelet Count 157x10^3/uL (140-400) Neutrophils (%) (Auto) 88% (31-73) Lymphocytes (%) (Auto) 5% (24-48) Monocytes (%) (Auto) 8% (0-9) Eosinophils (%) (Auto) 0% (0-3) Basophils (%) (Auto) 0% (0-3) Neutrophils # (Auto) 10.1x10^3uL (1.8-7.7) Lymphocytes # (Auto) 0.5x10^3/uL (1.0-4.8) Monocytes # (Auto) 0.9x10^3/uL (0.0-1.1) Eosinophils # (Auto) 0.0x10^3/uL (0.0-0.7) Basophils # (Auto) 0.0x10^3/uL (0.0-0.2) Reticulocyte Count (auto) 2.3% (0.5-2.5) Sodium Level 136mmol/L (136-145) Potassium Level 3.7mmol/L (3.5-5.1) Chloride Level 100mmol/L (98-107) Carbon Dioxide Level 30mmol/L (21-32) Anion Gap 6 (6-14) Blood Urea Nitrogen 47mg/dL (7-20) Creatinine 1.1mg/dL (0.6-1.0) Estimated GFR (Cockcroft-Gault) 50.3 Glucose Level 310mg/dL (70-99) Calcium Level 8.6mg/dL (8.5-10.1) Phosphorus Level 3.4mg/dL (2.6-4.7) Magnesium Level 2.1mg/dL (1.8-2.4) Iron Level 45ug/dL (50-170) Total Iron Binding Capacity 359ug/dL (250-450) Iron Saturation 13% (15-34) Creatine Kinase 79U/L (26-192) Albumin 3.1g/dL (3.4-5.0) Test 02/24/17 06:39 02/24/17 07:05 Glucose (Fingerstick) 282mg/dL (70-99) O2 Saturation 95% (92-99) Arterial Blood pH 7.47 (7.35-7.45) Arterial Blood pCO2 at Patient Temp 42mmHg (35-46) Arterial Blood pO2 at Patient Temp 78mmHg (65-108) Arterial Blood HCO3 30mmol/L (21-28) Arterial Blood Base Excess 6mmol/L (-3-3) FiO2 40 Laboratory Tests Test 02/23/17 12:14 02/23/17 14:30 02/23/17 17:46 02/23/17 21:08 Glucose (Fingerstick) 340mg/dL (70-99) 252mg/dL (70-99) 269mg/dL (70-99) Heparin Anti-Xa Act, Unfractionated 0.53IU/mL (0.30-0.70) Test 02/23/17 21:10 02/24/17 00:09 02/24/17 06:20 02/24/17 06:39 Heparin Anti-Xa Act, Unfractionated 0.48IU/mL (0.30-0.70) 0.51IU/mL (0.30-0.70) Glucose (Fingerstick) 304mg/dL (70-99) 282mg/dL (70-99) White Blood Count 11.5x10^3/uL (4.0-11.0) Red Blood Count 4.36x10^6/uL (3.50-5.40) Hemoglobin 10.2g/dL (12.0-15.5) Hematocrit 33.7% (36.0-47.0) Mean Corpuscular Volume 77fL (79-100) Mean Corpuscular Hemoglobin 23pg (25-35) Mean Corpuscular Hemoglobin Concent 30g/dL (31-37) Red Cell Distribution Width 23.3% (11.5-14.5) Platelet Count 157x10^3/uL (140-400) Neutrophils (%) (Auto) 88% (31-73) Lymphocytes (%) (Auto) 5% (24-48) Monocytes (%) (Auto) 8% (0-9) Eosinophils (%) (Auto) 0% (0-3) Basophils (%) (Auto) 0% (0-3) Neutrophils # (Auto) 10.1x10^3uL (1.8-7.7) Lymphocytes # (Auto) 0.5x10^3/uL (1.0-4.8) Monocytes # (Auto) 0.9x10^3/uL (0.0-1.1) Eosinophils # (Auto) 0.0x10^3/uL (0.0-0.7) Basophils # (Auto) 0.0x10^3/uL (0.0-0.2) Reticulocyte Count (auto) 2.3% (0.5-2.5) Sodium Level 136mmol/L (136-145) Potassium Level 3.7mmol/L (3.5-5.1) Chloride Level 100mmol/L (98-107) Carbon Dioxide Level 30mmol/L (21-32) Anion Gap 6 (6-14) Blood Urea Nitrogen 47mg/dL (7-20) Creatinine 1.1mg/dL (0.6-1.0) Estimated GFR (Cockcroft-Gault) 50.3 Glucose Level 310mg/dL (70-99) Calcium Level 8.6mg/dL (8.5-10.1) Phosphorus Level 3.4mg/dL (2.6-4.7) Magnesium Level 2.1mg/dL (1.8-2.4) Iron Level 45ug/dL (50-170) Total Iron Binding Capacity 359ug/dL (250-450) Iron Saturation 13% (15-34) Creatine Kinase 79U/L (26-192) Albumin 3.1g/dL (3.4-5.0) Test 02/24/17 07:05 O2 Saturation 95% (92-99) Arterial Blood pH 7.47 (7.35-7.45) Arterial Blood pCO2 at Patient Temp 42mmHg (35-46) Arterial Blood pO2 at Patient Temp 78mmHg (65-108) Arterial Blood HCO3 30mmol/L (21-28) Arterial Blood Base Excess 6mmol/L (-3-3) FiO2 40 Medications Active Scripts Medications Dose Route/Sig Days Date Category Requip (Ropinirole Hcl) 1 Mg Tablet 4 Mg PO DAILY 02/14/17 Reported Aspir 81 (Aspirin) 81 Mg Tablet.dr 81 Mg PO DAILY 02/14/17 Reported Wellbutrin Sr (Bupropion Hcl) 150 Mg Tablet.er 150 Mg PO DAILY 02/14/17 Reported Toprol Xl (Metoprolol Succinate) 25 Mg Tab.er.24h 12 Mg PO DAILY 02/14/17 Reported Lasix (Furosemide) 40 Mg Tablet 40 Mg PO DAILY 02/14/17 Reported Pravastatin Sodium 40 Mg Tablet 40 Mg PO DAILY 02/14/17 Reported Pantoprazole Sodium 40 Mg Tablet.dr 40 Mg PO DAILY 02/14/17 Reported [place] 7.5-325 Tablet (Acetaminophen/Hydrocodone Bitart) 1 Each Tablet 1 Tab PO PRN Q6HRS PRN 12/06/14 Rx Doxycycline Hyclate 100 Mg Capsule 1 Cap PO BID 12/06/14 Reported Hydrocodone-Apap 5-325 (Hydrocodone Bit/Acetaminophen) 1 Each Tablet 1-2 Tab PO Q4-6HRS PRN 12/06/14 Reported Levothyroxine Sodium 75 Mcg Tablet 1 Tab PO DAILY 12/05/14 Reported Citalopram Hbr (Citalopram Hydrobromide) 20 Mg Tablet 20 Mg PO DAILY 12/05/14 Reported Losartan Potassium 50 Mg Tablet 50 Mg PO DAILY 12/05/14 Reported Metformin Hcl 500 Mg Tablet 1 Tab PO TIDWMEALS 12/05/14 Reported Comments cxr no change Impression . 1. Acute respiratory failure secondary to SEPTIC SHOCK, resolved 2. SEPTIC SHOCK, resolved 3. Acute renal failure, improved no further HD needed 4. 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 Not been on chronic steroids. 5. Marked anion gap metabolic acidosis secondary to septic shock./renal failure , improved 6. Non-ST myocardial infarction. 7. Nutrition ,on tube feeding 8. Abnormal cxr sec to old ILD Plan . WILL DC SEDATION AND MAY JUST PROCEED WITH EXTUBATION , ON BIPAP SPOKE WITH AT BEDSIDE/ SHE HAS DONE THIS BEFORE NO HD NEEDED FOR NOW REPEAT CXR NO CHANGE MOSTLY CHRONIC FINDINGS 1. ABG noted 2. Broad spectrum antibiotics, per ID 3. pressors off 4. off Hemodialysis per nephro 5. Chest x-ray, follow up as needed 6. E coli UTI 8. DVT prophylaxis. 9. Stress ulcer prophylaxis. 10. taper Hydrocortisone 11. Echo report NOTED COLETTE HARDIN MD February 24, 2017 10:28
[2017-02-24 10:55] LABS: HCO3 ABG 29 mmol/L (21-28); PCO2 ABG 44 mmHg (35-46); PH ABG 7.43 (7.35-7.45); PO2 ABG 77 mmHg (65-108); SAT O2 ABG 94 % (92-99)
[2017-02-24 10:56] LABS: FIO2 ABG 40
--- NOTE | 2017-02-24 11:01 | PDOC ---
PROGRESS NOTES Chief Complaint Chief Complaint cc: Respiratory failure -Acute renal failure -CHF -NSTEMI -CAD -Septic shock -CABG -HLD -HTN -Tonsillectomy -Pulmonary fibrosis -FREDY -Obesity -Constipation -GERD -Breast excision -Tubal ligation -DM -Hypothyroidism -Anxiety -Smoking -Hepatitis A -Respiratory failure History of Present Illness History of Present Illness Ms. Betancourt was still on the ventilator when we visited her. Her ventilator settings were at A/C / 14 f / 500 TV / 40% FiO2% with 5 cmH2O PEEP. Her SpO2% was 97. She has been taken off sedation. We discussed the case with her nurse. Vitals Vitals Vital Signs Date Time Temp Pulse Resp B/P Pulse Ox O2 Delivery O2 Flow Rate FiO2 02/24/17 10:00 80 14 115/74 96 Ventilator 02/24/17 08:00 98.6 98.6 Physical Exam General: No acute distress, Other (This patient was on a ventilator.) Heart: Regular rate, Normal S1, Normal S2 Lungs: Other (decrease bs) Abdomen: No hepatosplenomegaly, No masses Extremities: No cyanosis, Normal pulses Skin: No rashes, No breakdown Labs LABS Laboratory Tests Test 02/23/17 12:14 02/23/17 14:30 02/23/17 17:46 02/23/17 21:08 Glucose (Fingerstick) 340mg/dL (70-99) 252mg/dL (70-99) 269mg/dL (70-99) Heparin Anti-Xa Act, Unfractionated 0.53IU/mL (0.30-0.70) Test 02/23/17 21:10 02/24/17 00:09 02/24/17 06:20 02/24/17 06:39 Heparin Anti-Xa Act, Unfractionated 0.48IU/mL (0.30-0.70) 0.51IU/mL (0.30-0.70) Glucose (Fingerstick) 304mg/dL (70-99) 282mg/dL (70-99) White Blood Count 11.5x10^3/uL (4.0-11.0) Red Blood Count 4.36x10^6/uL (3.50-5.40) Hemoglobin 10.2g/dL (12.0-15.5) Hematocrit 33.7% (36.0-47.0) Mean Corpuscular Volume 77fL (79-100) Mean Corpuscular Hemoglobin 23pg (25-35) Mean Corpuscular Hemoglobin Concent 30g/dL (31-37) Red Cell Distribution Width 23.3% (11.5-14.5) Platelet Count 157x10^3/uL (140-400) Neutrophils (%) (Auto) 88% (31-73) Lymphocytes (%) (Auto) 5% (24-48) Monocytes (%) (Auto) 8% (0-9) Eosinophils (%) (Auto) 0% (0-3) Basophils (%) (Auto) 0% (0-3) Neutrophils # (Auto) 10.1x10^3uL (1.8-7.7) Lymphocytes # (Auto) 0.5x10^3/uL (1.0-4.8) Monocytes # (Auto) 0.9x10^3/uL (0.0-1.1) Eosinophils # (Auto) 0.0x10^3/uL (0.0-0.7) Basophils # (Auto) 0.0x10^3/uL (0.0-0.2) Reticulocyte Count (auto) 2.3% (0.5-2.5) Sodium Level 136mmol/L (136-145) Potassium Level 3.7mmol/L (3.5-5.1) Chloride Level 100mmol/L (98-107) Carbon Dioxide Level 30mmol/L (21-32) Anion Gap 6 (6-14) Blood Urea Nitrogen 47mg/dL (7-20) Creatinine 1.1mg/dL (0.6-1.0) Estimated GFR (Cockcroft-Gault) 50.3 Glucose Level 310mg/dL (70-99) Calcium Level 8.6mg/dL (8.5-10.1) Phosphorus Level 3.4mg/dL (2.6-4.7) Magnesium Level 2.1mg/dL (1.8-2.4) Iron Level 45ug/dL (50-170) Total Iron Binding Capacity 359ug/dL (250-450) Iron Saturation 13% (15-34) Ferritin 44ng/mL (8-252) Creatine Kinase 79U/L (26-192) Albumin 3.1g/dL (3.4-5.0) Test 02/24/17 07:05 O2 Saturation 95% (92-99) Arterial Blood pH 7.47 (7.35-7.45) Arterial Blood pCO2 at Patient Temp 42mmHg (35-46) Arterial Blood pO2 at Patient Temp 78mmHg (65-108) Arterial Blood HCO3 30mmol/L (21-28) Arterial Blood Base Excess 6mmol/L (-3-3) FiO2 40 Review of Systems Review of Systems General: weakness Respiratory: shortness of breath Assessment and Plan Assessmemt and Plan Problems Medical Problems: (1) ARF (acute renal failure) Status: Acute (2) Cardiac failure Status: Acute (3) Hypoxia Status: Acute (4) Respiratory failure Status: Acute cc: Respiratory failure -Acute renal failure -CHF -NSTEMI -CAD -Septic shock -CABG -HLD -HTN -Tonsillectomy -Pulmonary fibrosis -FREDY -Obesity -Constipation -GERD -Breast excision -Tubal ligation -DM -Hypothyroidism -Anxiety -Smoking -Hepatitis A -Respiratory failure Plan: 1. Sedation DC'ed per pulmonary 2. Possible extubation tomorrow if pulmonary agrees 3. Recheck labs in AM 4. PT/OT consult appreciated 5. Subspecialty input appreciated Problems: Comment Review of Relevant I have reviewed the following items trey (where applicable) has been applied. Labs Laboratory Tests Test 02/22/17 12:14 02/22/17 17:52 02/22/17 21:04 02/23/17 00:38 Glucose (Fingerstick) 366mg/dL (70-99) 357mg/dL (70-99) 317mg/dL (70-99) 324mg/dL (70-99) Test 02/23/17 06:04 02/23/17 06:15 02/23/17 06:16 02/23/17 07:25 Glucose (Fingerstick) 320mg/dL (70-99) White Blood Count 10.0x10^3/uL (4.0-11.0) Red Blood Count 4.49x10^6/uL (3.50-5.40) Hemoglobin 10.7g/dL (12.0-15.5) Hematocrit 34.2% (36.0-47.0) Mean Corpuscular Volume 76fL (79-100) Mean Corpuscular Hemoglobin 24pg (25-35) Mean Corpuscular Hemoglobin Concent 31g/dL (31-37) Red Cell Distribution Width 22.9% (11.5-14.5) Platelet Count 128x10^3/uL (140-400) Neutrophils (%) (Auto) 90% (31-73) Lymphocytes (%) (Auto) 3% (24-48) Monocytes (%) (Auto) 7% (0-9) Eosinophils (%) (Auto) 0% (0-3) Basophils (%) (Auto) 1% (0-3) Neutrophils # (Auto) 9.0x10^3uL (1.8-7.7) Lymphocytes # (Auto) 0.3x10^3/uL (1.0-4.8) Monocytes # (Auto) 0.7x10^3/uL (0.0-1.1) Eosinophils # (Auto) 0.0x10^3/uL (0.0-0.7) Basophils # (Auto) 0.1x10^3/uL (0.0-0.2) Sodium Level 137mmol/L (136-145) Potassium Level 3.8mmol/L (3.5-5.1) Chloride Level 100mmol/L (98-107) Carbon Dioxide Level 30mmol/L (21-32) Anion Gap 7 (6-14) Blood Urea Nitrogen 52mg/dL (7-20) Creatinine 1.2mg/dL (0.6-1.0) Estimated GFR (Cockcroft-Gault) 45.5 Glucose Level 346mg/dL (70-99) Calcium Level 8.8mg/dL (8.5-10.1) Phosphorus Level 3.3mg/dL (2.6-4.7) Magnesium Level 2.3mg/dL (1.8-2.4) Creatine Kinase 110U/L (26-192) Albumin 3.4g/dL (3.4-5.0) Heparin Anti-Xa Act, Unfractionated 0.91IU/mL (0.30-0.70) O2 Saturation 97% (92-99) Arterial Blood pH 7.44 (7.35-7.45) Arterial Blood pCO2 at Patient Temp 43mmHg (35-46) Arterial Blood pO2 at Patient Temp 95mmHg (65-108) Arterial Blood HCO3 29mmol/L (21-28) Arterial Blood Base Excess 4mmol/L (-3-3) FiO2 40 Test 02/23/17 10:16 02/23/17 12:14 02/23/17 14:30 02/23/17 17:46 Urine Protein 39.9mg/dL (Not Estab.) Urine Creatinine 50.6mg/dL (Not Estab.) Urine Protein/Creatinine Ratio 789mg/g creat (0-200) Glucose (Fingerstick) 340mg/dL (70-99) 252mg/dL (70-99) Heparin Anti-Xa Act, Unfractionated 0.53IU/mL (0.30-0.70) Test 02/23/17 21:08 02/23/17 21:10 02/24/17 00:09 02/24/17 06:20 Glucose (Fingerstick) 269mg/dL (70-99) 304mg/dL (70-99) Heparin Anti-Xa Act, Unfractionated 0.48IU/mL (0.30-0.70) 0.51IU/mL (0.30-0.70) White Blood Count 11.5x10^3/uL (4.0-11.0) Red Blood Count 4.36x10^6/uL (3.50-5.40) Hemoglobin 10.2g/dL (12.0-15.5) Hematocrit 33.7% (36.0-47.0) Mean Corpuscular Volume 77fL (79-100) Mean Corpuscular Hemoglobin 23pg (25-35) Mean Corpuscular Hemoglobin Concent 30g/dL (31-37) Red Cell Distribution Width 23.3% (11.5-14.5) Platelet Count 157x10^3/uL (140-400) Neutrophils (%) (Auto) 88% (31-73) Lymphocytes (%) (Auto) 5% (24-48) Monocytes (%) (Auto) 8% (0-9) Eosinophils (%) (Auto) 0% (0-3) Basophils (%) (Auto) 0% (0-3) Neutrophils # (Auto) 10.1x10^3uL (1.8-7.7) Lymphocytes # (Auto) 0.5x10^3/uL (1.0-4.8) Monocytes # (Auto) 0.9x10^3/uL (0.0-1.1) Eosinophils # (Auto) 0.0x10^3/uL (0.0-0.7) Basophils # (Auto) 0.0x10^3/uL (0.0-0.2) Reticulocyte Count (auto) 2.3% (0.5-2.5) Sodium Level 136mmol/L (136-145) Potassium Level 3.7mmol/L (3.5-5.1) Chloride Level 100mmol/L (98-107) Carbon Dioxide Level 30mmol/L (21-32) Anion Gap 6 (6-14) Blood Urea Nitrogen 47mg/dL (7-20) Creatinine 1.1mg/dL (0.6-1.0) Estimated GFR (Cockcroft-Gault) 50.3 Glucose Level 310mg/dL (70-99) Calcium Level 8.6mg/dL (8.5-10.1) Phosphorus Level 3.4mg/dL (2.6-4.7) Magnesium Level 2.1mg/dL (1.8-2.4) Iron Level 45ug/dL (50-170) Total Iron Binding Capacity 359ug/dL (250-450) Iron Saturation 13% (15-34) Ferritin 44ng/mL (8-252) Creatine Kinase 79U/L (26-192) Albumin 3.1g/dL (3.4-5.0) Test 02/24/17 06:39 02/24/17 07:05 02/24/17 10:45 Glucose (Fingerstick) 282mg/dL (70-99) O2 Saturation 95% (92-99) 94% (92-99) Arterial Blood pH 7.47 (7.35-7.45) 7.43 (7.35-7.45) Arterial Blood pCO2 at Patient Temp 42mmHg (35-46) 44mmHg (35-46) Arterial Blood pO2 at Patient Temp 78mmHg (65-108) 77mmHg (65-108) Arterial Blood HCO3 30mmol/L (21-28) 29mmol/L (21-28) Arterial Blood Base Excess 6mmol/L (-3-3) 4mmol/L (-3-3) FiO2 40 40 Laboratory Tests Test 02/23/17 12:14 02/23/17 14:30 02/23/17 17:46 02/23/17 21:08 Glucose (Fingerstick) 340mg/dL (70-99) 252mg/dL (70-99) 269mg/dL (70-99) Heparin Anti-Xa Act, Unfractionated 0.53IU/mL (0.30-0.70) Test 02/23/17 21:10 02/24/17 00:09 02/24/17 06:20 02/24/17 06:39 Heparin Anti-Xa Act, Unfractionated 0.48IU/mL (0.30-0.70) 0.51IU/mL (0.30-0.70) Glucose (Fingerstick) 304mg/dL (70-99) 282mg/dL (70-99) White Blood Count 11.5x10^3/uL (4.0-11.0) Red Blood Count 4.36x10^6/uL (3.50-5.40) Hemoglobin 10.2g/dL (12.0-15.5) Hematocrit 33.7% (36.0-47.0) Mean Corpuscular Volume 77fL (79-100) Mean Corpuscular Hemoglobin 23pg (25-35) Mean Corpuscular Hemoglobin Concent 30g/dL (31-37) Red Cell Distribution Width 23.3% (11.5-14.5) Platelet Count 157x10^3/uL (140-400) Neutrophils (%) (Auto) 88% (31-73) Lymphocytes (%) (Auto) 5% (24-48) Monocytes (%) (Auto) 8% (0-9) Eosinophils (%) (Auto) 0% (0-3) Basophils (%) (Auto) 0% (0-3) Neutrophils # (Auto) 10.1x10^3uL (1.8-7.7) Lymphocytes # (Auto) 0.5x10^3/uL (1.0-4.8) Monocytes # (Auto) 0.9x10^3/uL (0.0-1.1) Eosinophils # (Auto) 0.0x10^3/uL (0.0-0.7) Basophils # (Auto) 0.0x10^3/uL (0.0-0.2) Reticulocyte Count (auto) 2.3% (0.5-2.5) Sodium Level 136mmol/L (136-145) Potassium Level 3.7mmol/L (3.5-5.1) Chloride Level 100mmol/L (98-107) Carbon Dioxide Level 30mmol/L (21-32) Anion Gap 6 (6-14) Blood Urea Nitrogen 47mg/dL (7-20) Creatinine 1.1mg/dL (0.6-1.0) Estimated GFR (Cockcroft-Gault) 50.3 Glucose Level 310mg/dL (70-99) Calcium Level 8.6mg/dL (8.5-10.1) Phosphorus Level 3.4mg/dL (2.6-4.7) Magnesium Level 2.1mg/dL (1.8-2.4) Iron Level 45ug/dL (50-170) Total Iron Binding Capacity 359ug/dL (250-450) Iron Saturation 13% (15-34) Ferritin 44ng/mL (8-252) Creatine Kinase 79U/L (26-192) Albumin 3.1g/dL (3.4-5.0) Test 02/24/17 07:05 02/24/17 10:45 O2 Saturation 95% (92-99) 94% (92-99) Arterial Blood pH 7.47 (7.35-7.45) 7.43 (7.35-7.45) Arterial Blood pCO2 at Patient Temp 42mmHg (35-46) 44mmHg (35-46) Arterial Blood pO2 at Patient Temp 78mmHg (65-108) 77mmHg (65-108) Arterial Blood HCO3 30mmol/L (21-28) 29mmol/L (21-28) Arterial Blood Base Excess 6mmol/L (-3-3) 4mmol/L (-3-3) FiO2 40 40 Microbiology 02/18/17 Urine Culture - Final, Complete 02/18/17 Urine Culture Result 1 (NORBERTO) - Final, Complete Medications Current Medications Sodium Polystyrene Sulfonate (Kayexalate) 30 gm 1X ONCE PO Last administered on 02/17/17 03:54; Start 02/17/17 at 02:45; Stop 02/17/17 at 02:46; Status DC Ondansetron HCl (Zofran) 4 mg PRN Q6HRS PRN IV NAUSEA/VOMITING; Start 02/17/17 at 02:00 Pantoprazole Sodium (Protonix Vial) 40 mg TID IVP Last administered on 08:56; Start 02/17/17 at 09:00; Stop 02/17/17 at 13:17; Status DC Acetaminophen 650 mg 650 mg PRN Q6HRS PRN PO FEVER; Start 02/17/17 at 02:00 Midazolam HCl 100 ml @ 0 mls/hr CONT PRN IV SEE I/O RECORD Last administered on 02/17/17 20:34; Start 02/17/17 at 02:30 Levothyroxine Sodium 37.5 mcg/ Sodium Chloride 5 ml @ 100 mls/hr DAILY IVP Last administered on 02/24/17 08:33; Start 02/17/17 at 09:00 Sodium Chloride 1,000 ml @ 100 mls/hr 1X ONCE IV Last administered on 04:25; Start 02/17/17 at 04:30; Stop 02/17/17 at 11:25; Status DC Sodium Chloride (Iv Sodium Chloride 0.9% 1000ml Bag) 1,000 ml @ 100 mls/hr 1X ONCE IV Last administered on 02/17/17 04:25; Start 02/17/17 at 04:30; Stop at 09:15; Status DC Pneumococcal Polyvalent Vaccine (Do NOT chart on this placeholder) 1 each 1X ONCE MC ; Start 02/17/17 at 06:00; Stop 02/17/17 at 06:01; Status UNV Pneumococcal Polyvalent Vaccine 0.5 ml 0.5 ml ONCE ONCE VAX IM ; Start 02/17/17 at 09:00; Stop 02/17/17 at 09:01; Status DC Norepinephrine Bitartrate 250 ml @ 0 mls/hr CONT PRN IV SEE I/O RECORD Last administered on 02/18/17 11:15; Start 02/17/17 at 06:15 Sodium Chloride 1,000 ml @ 1,000 mls/hr 1X ONCE IV Last administered on 08:56; Start 02/17/17 at 08:15; Stop 02/17/17 at 09:14; Status DC Piperacillin Sod/ Tazobactam Sod 2.25 gm/Sodium Chloride 50 ml @ 100 mls/hr Q8HRS IV Last administered on 02/24/17 06:33; Start 02/17/17 at 08:45; Stop 02/24/17 at 09:48; Status DC Magnesium Sulfate/ Dextrose (Magnesium Sulfate PREMIX 2GM) 50 ml @ 25 mls/hr 1X ONCE IV Last administered on 02/17/17 09:30; Start 02/17/17 at 09:00; Stop 02/17/17 at 10:59; Status DC Fentanyl Citrate 50 mcg 50 mcg PRN Q2HR PRN IV PAIN Last administered on 02:37; Start 02/17/17 at 09:00 Sodium Chloride (Iv Sodium Chloride 0.9% 1000ml Bag) 1,000 ml @ 1,000 mls/hr 1X ONCE IV Last administered on 02/17/17 08:57; Start 02/17/17 at 09:00; Stop 02/17/17 at 09:59; Status DC Heparin Sodium (Porcine) (Heparin Sodium) 10,000 unit STK-MED ONCE .ROUTE ; Start 02/17/17 at 09:23; Stop 02/17/17 at 09:24; Status DC Lidocaine/Sodium Bicarbonate 20 ml 20 ml STK-MED ONCE IJ ; Start 02/17/17 at 09: 23; Stop 02/17/17 at 09:24; Status DC Heparin Sodium/ Sodium Chloride 500 ml @ As Directed STK-MED ONCE .ROUTE ; Start 02/17/17 at 09:23; Stop 02/17/17 at 09:24; Status DC Lidocaine/Sodium Bicarbonate (Buffered Lidocaine 1%) 3 ml 1X ONCE IJ ; Start at 09:30; Stop 02/17/17 at 09:35; Status DC Heparin Sodium/ Sodium Chloride 60 unit 1X ONCE IV ; Start 02/17/17 at 09:30; Stop 02/17/17 at 09:35; Status DC Heparin Sodium (Porcine) (Heparin Sodium) 2,500 unit 1X ONCE INT CAT ; Start at 09:30; Stop 02/17/17 at 09:35; Status DC Sodium Bicarbonate 50 meq STK-MED ONCE .ROUTE ; Start 02/17/17 at 09:42; Stop at 09:43; Status DC Sodium Bicarbonate 100 meq 100 meq 1X ONCE IV Last administered on 02/17/17 09:51; Start 02/17/17 at 09:45; Stop 02/17/17 at 09:48; Status DC Sodium Bicarbonate 150 meq/Dextrose 1,150 ml @ 150 mls/hr Q7H40M IV Last administered on 02/17/17 10:34; Start 02/17/17 at 09:45; Stop 02/17/17 at 18:05 ; Status DC Vasopressin/ Dextrose (Vasostrict) 102 ml @ 6 mls/hr ONCE ONCE IV Last administered on 02/17/17 10:34; Start 02/17/17 at 10:00; Stop 02/18/17 at 02:59 ; Status DC Hydrocortisone Sodium Succinate (Solu-Cortef) 100 mg Q8HRS IV ; Start 02/17/17 at 10:30; Stop 02/17/17 at 10:30; Status DC Vancomycin HCl (Vanco Per Pharmacy) 1 each PRN DAILY PRN MC SEE COMMENTS Last administered on 02/17/17 10:28; Start 02/17/17 at 10:15; Stop 02/18/17 at 12:50 ; Status DC Lidocaine/Sodium Bicarbonate (Buffered Lidocaine 1%) 3 ml 1X ONCE IJ ; Start at 10:15; Stop 02/17/17 at 10:16; Status DC Heparin Sodium/ Sodium Chloride 60 unit 1X ONCE IV ; Start 02/17/17 at 10:15; Stop 02/17/17 at 10:16; Status DC Heparin Sodium (Porcine) (Heparin Sodium) 2,500 unit 1X ONCE INT CAT ; Start at 10:15; Stop 02/17/17 at 10:16; Status DC Hydrocortisone Sodium Succinate 100 mg 100 mg ONCE ONCE IV Last administered on 02/17/17 10:36; Start 02/17/17 at 10:30; Stop 02/17/17 at 10:31; Status DC Vasopressin 40 unit/Dextrose 102 ml @ 6 mls/hr CONT PRN IV SEE I/O RECORD Last administered on 02/18/17 13:53; Start 02/17/17 at 10:15; Stop 02/23/17 at 07:49 ; Status DC Vancomycin HCl/ Sodium Chloride (Iv Sodium Chloride 0.9% 500ml Bag) 500 ml @ 250 mls/hr ONCE ONCE IV Last administered on 02/17/17 13:53; Start 02/17/17 at 10:30; Stop 02/17/17 at 12:29; Status DC Hydrocortisone Sodium Succinate (Solu-Cortef) 100 mg Q8HRS IV Last administered on 02/23/17 06:07; Start 02/17/17 at 14:00; Stop 02/23/17 at 07:49 ; Status DC Vancomycin HCl 1 each 1X ONCE MC ; Start 02/19/17 at 10:30; Stop 02/19/17 at 10 :30; Status DC Chlorhexidine Gluconate 15 ml 15 ml BID SWSP Last administered on 02/24/17 08: 32; Start 02/17/17 at 21:00 Sodium Chloride 1,000 ml @ 100 mls/hr Q10H IV Last administered on 02/17/17 13:53; Start 02/17/17 at 12:15; Stop 02/17/17 at 18:58; Status DC Sodium Chloride (Iv Sodium Chloride 0.9% 1000ml Bag) 1,000 ml @ 1,000 mls/hr Q1H PRN IV hypotension; Start 02/17/17 at 12:28; Stop 02/17/17 at 18:27; Status DC Sodium Chloride (Normal Saline Flush) 10 ml 1X PRN PRN IV AP catheter pack; Start 02/17/17 at 12:30; Stop 02/18/17 at 12:29; Status DC Sodium Chloride (Normal Saline Flush) 10 ml 1X PRN PRN IV H[employer] catheter pack; Start 02/17/17 at 12:30; Stop 02/18/17 at 12:29; Status DC Info (PHARMACY MONITORING -- do not chart) 1 each PRN DAILY PRN MC SEE COMMENTS ; Start 02/17/17 at 12:30; Stop 02/24/17 at 09:43; Status DC Info (PHARMACY MONITORING -- do not chart) 1 each PRN DAILY PRN MC SEE COMMENTS ; Start 02/17/17 at 12:30; Status UNV Pantoprazole Sodium 40 mg 40 mg DAILY IVP Last administered on 02/24/17 08:32; Start 02/18/17 at 09:00 Albumin Human 50 ml @ 50 mls/hr 1X ONCE IV Last administered on 02/17/17 18: 58; Start 02/17/17 at 18:45; Stop 02/17/17 at 19:44; Status DC Sodium Chloride 1,000 ml @ 125 mls/hr 1X ONCE IV ; Start 02/17/17 at 18:45; Stop 02/18/17 at 09:15; Status DC Sodium Chloride 1,000 ml @ 125 mls/hr Q8H IV Last administered on 02/18/17 05 :42; Start 02/17/17 at 19:00; Stop 02/18/17 at 09:15; Status DC Sodium Chloride 1,000 ml @ 1,000 mls/hr Q1H PRN IV hypotension; Start 02/18/17 at 07:47; Stop 02/18/17 at 13:46; Status DC Albumin Human (Albuminar) 200 ml @ 200 mls/hr 1X PRN PRN IV Hypotension; Start 02/18/17 at 08:00; Stop 02/18/17 at 13:59; Status DC Acetaminophen (Tylenol) 500 mg 1X PRN PRN PO MILD PAIN / TEMP; Start 02/18/17 at 08:00; Stop 02/19/17 at 07:59; Status DC Diphenhydramine HCl (Benadryl) 25 mg 1X PRN PRN IV ITCHING; Start 02/18/17 at 08:00; Stop 02/19/17 at 07:59; Status DC Diphenhydramine HCl (Benadryl) 25 mg 1X PRN PRN IV ITCHING; Start 02/18/17 at 08:00; Stop 02/19/17 at 07:59; Status DC Labetalol HCl (Normodyne) 10 mg PRN Q1HR PRN IVP SBP > 180; Start 02/18/17 at 08:00; Stop 02/19/17 at 07:59; Status DC Clonidine HCl 0.1 mg 0.1 mg 1X PRN PRN PO SBP > 180; Start 02/18/17 at 08:00; Stop 02/19/17 at 07:59; Status DC Sodium Chloride (Iv Sodium Chloride 0.9% 1000ml Bag) 1,000 ml @ 400 mls/hr Q2H30M PRN IV PATENCY; Start 02/18/17 at 07:47; Stop 02/18/17 at 19:46; Status DC Info 1 each 1 each PRN DAILY PRN MC SEE COMMENTS; Start 02/18/17 at 08:00; Status UNV Magnesium Sulfate/ Dextrose 50 ml @ 25 mls/hr PRN DAILY PRN IV for Mag < 1.7 on am labs Last administered on 02/18/17 11:16; Start 02/18/17 at 08:00 Propofol 100 ml @ As Directed STK-MED ONCE IV ; Start 02/18/17 at 11:47; Stop 02/18/17 at 11:48; Status DC Propofol (Diprivan) 100 ml @ 0 mls/hr CONT PRN IV SEE I/O RECORD Last administered on 02/24/17 06:49; Start 02/18/17 at 12:45 Insulin Aspart (Novolog) 0-7 UNITS Q6HRS SQ Last administered on 02/24/17 06:42 ; Start 02/19/17 at 00:00 Dextrose 12.5 gm 12.5 gm PRN Q15MIN PRN IV SEE COMMENTS; Start 02/18/17 at 21: 00 Magnesium Sulfate/ Dextrose 50 ml @ 25 mls/hr PRN DAILY PRN IV for Mag < 1.7 on am labs; Start 02/19/17 at 07:45; Stop 02/19/17 at 10:20; Status DC Potassium Chloride 50 ml @ 50 mls/hr PRN Q6HRS PRN IV For K < 3.7; Start at 07:45 Potassium Chloride 50 ml @ 50 mls/hr PRN Q2HR PRN IV total of 40mEq for K < 3.5 Last administered on 02/22/17 12:11; Start 02/19/17 at 07:45 Calcium Chloride 2000 mg/Sodium Chloride 120 ml @ 240 mls/hr 1X ONCE IV ; Start 02/19/17 at 08:00; Stop 02/19/17 at 08:29; Status DC Albumin Human (Albuminar) 100 ml @ 100 mls/hr TID IV Last administered on 02/20 20:51; Start 02/19/17 at 09:00; Stop 02/20/17 at 21:59; Status DC Bupropion HCl (Wellbutrin) 75 mg BID NG Last administered on 02/24/17 08:32; Start 02/19/17 at 12:00 Citalopram Hydrobromide 20 mg 20 mg DAILY NG Last administered on 02/24/17 08: 32; Start 02/19/17 at 12:00 Heparin Sodium/ Dextrose 500 ml @ 20 mls/hr CONT PRN IV SEE I/O RECORD Last administered on 02/23/17 21:22; Start 02/19/17 at 13:15 Info 1 each 1 each PRN DAILY PRN MC SEE COMMENTS Last administered on 02/24/17 09:53; Start 02/20/17 at 07:45 Potassium Chloride (KCl Premix 20meq) 50 ml @ 50 mls/hr Q1HR IV Last administered on 02/20/17 09:48; Start 02/20/17 at 09:00; Stop 02/20/17 at 10:59 ; Status DC Metoprolol Tartrate (Lopressor) 2.5 mg 1X ONCE IVP Last administered on 14:19; Start 02/20/17 at 14:00; Stop 02/20/17 at 14:01; Status DC Metoprolol Tartrate (Lopressor) 2.5 mg Q6HRS IVP Last administered on 02/24/17 06:33; Start 02/20/17 at 14:00 Albuterol/ Ipratropium (Duoneb) 3 ml RTQID NEB Last administered on 02/24/17 07 :04; Start 02/21/17 at 12:00 Insulin Detemir (Levemir) 10 units QHS SQ Last administered on 02/21/17 21:03 ; Start 02/21/17 at 21:00; Stop 02/22/17 at 12:39; Status DC Insulin Detemir (Levemir) 30 units QHS SQ Last administered on 02/23/17 21:21 ; Start 02/22/17 at 21:00 Aspirin (Ecotrin) 81 mg [id number] PO ; Start 02/23/17 at 08:00; Stop 02/23/17 at 08:00; Status DC Hydrocortisone Sodium Succinate (Solu-Cortef) 50 mg Q8HRS IV Last administered on 02/24/17 06:33; Start 02/23/17 at 14:00; Stop 02/24/17 at 10:30; Status DC Aspirin 81 mg 81 mg [id number] PO Last administered on 02/24/17 08:32; Start at 08:00 Nitroglycerin/ Dextrose 250 ml @ 0 mls/hr 1X ONCE IV ; Start 02/23/17 at 12:30 ; Stop 02/23/17 at 12:31; Status DC Piperacillin Sod/ Tazobactam Sod/ Sodium Chloride (Zosyn/Iv Sodium Chloride 0.9 % 50ml) 50 ml @ 100 mls/hr Q6HRS IV ; Start 02/24/17 at 12:00 Hydrocortisone Sodium Succinate (Solu-Cortef) 25 mg BID IV ; Start 02/25/17 at 09 :00 Active Scripts Active [place] 7.5-325 Tablet (Acetaminophen/Hydrocodone Bitart) 1 Each Tablet 1 Tab PO PRN Q6HRS PRN Reported Requip (Ropinirole Hcl) 1 Mg Tablet 4 Mg PO DAILY Aspir 81 (Aspirin) 81 Mg Tablet.dr 81 Mg PO DAILY Wellbutrin Sr (Bupropion Hcl) 150 Mg Tablet.er 150 Mg PO DAILY Toprol Xl (Metoprolol Succinate) 25 Mg Tab.er.24h 12 Mg PO DAILY Lasix (Furosemide) 40 Mg Tablet 40 Mg PO DAILY Pravastatin Sodium 40 Mg Tablet 40 Mg PO DAILY Pantoprazole Sodium 40 Mg Tablet.dr 40 Mg PO DAILY Doxycycline Hyclate 100 Mg Capsule 1 Cap PO BID Hydrocodone-Apap 5-325 (Hydrocodone Bit/Acetaminophen) 1 Each Tablet 1-2 Tab PO Q4-6HRS PRN Levothyroxine Sodium 75 Mcg Tablet 1 Tab PO DAILY Citalopram Hbr (Citalopram Hydrobromide) 20 Mg Tablet 20 Mg PO DAILY Losartan Potassium 50 Mg Tablet 50 Mg PO DAILY Metformin Hcl 500 Mg Tablet 1 Tab PO TIDWMEALS Vitals/I & O Vital Sign - Last 24 Hours 02/23/17 02/23/17 02/23/17 02/23/17 11:00 11:48 12:00 12:00 Pulse 80 80 Resp 15 15 B/P 131/78 123/78 Pulse Ox 97 96 97 O2 Delivery Ventilator Ventilator Ventilator Mechanical Ventilator 02/23/17 02/23/17 02/23/17 02/23/17 12:21 13:00 13:50 14:00 Pulse 76 80 80 Resp 15 15 B/P 131/78 127/81 132/80 Pulse Ox 97 96 97 O2 Delivery Ventilator Ventilator Ventilator 02/23/17 02/23/17 02/23/17 02/23/17 15:00 15:29 16:00 16:00 Pulse 80 80 Resp 15 15 B/P 148/87 135/93 Pulse Ox 97 97 97 O2 Delivery Ventilator Ventilator Mechanical Ventilator Ventilator 02/23/17 02/23/17 02/23/17 02/23/17 17:00 17:23 18:00 18:01 Temp 98.2 98.2 Pulse 80 80 72 Resp 15 15 B/P 160/75 89/59 135/93 Pulse Ox 97 96 97 O2 Delivery Ventilator Ventilator Ventilator 02/23/17 02/23/17 02/23/17 02/23/17 19:00 20:00 20:00 20:08 Temp 98.2 98.2 Pulse 71 71 Resp 14 14 B/P 114/74 97/60 Pulse Ox 97 96 96 O2 Delivery Ventilator Mechanical Ventilator Ventilator Ventilator 02/23/17 02/23/17 02/23/17 02/23/17 21:00 21:45 22:00 23:00 Pulse 74 74 75 Resp 14 14 16 B/P 141/85 115/72 121/79 Pulse Ox 96 97 96 96 O2 Delivery Ventilator Ventilator Ventilator Ventilator 02/23/17 02/24/17 02/24/17 02/24/17 23:35 00:00 00:00 00:07 Temp 98.5 98.5 Pulse 74 80 Resp 16 B/P 134/86 141/89 Pulse Ox 95 96 O2 Delivery Ventilator Ventilator Mechanical Ventilator 02/24/17 02/24/17 02/24/17 02/24/17 01:00 02:00 02:42 03:00 Pulse 77 80 79 Resp 14 16 15 B/P 133/85 136/87 142/84 Pulse Ox 96 96 96 96 O2 Delivery Ventilator Ventilator Ventilator Ventilator 02/24/17 02/24/17 02/24/17 02/24/17 04:00 04:00 05:00 05:12 Temp 98.2 98.2 Pulse 80 78 Resp 15 16 B/P 140/90 132/83 Pulse Ox 96 96 96 O2 Delivery Ventilator Mechanical Ventilator Ventilator Ventilator 02/24/17 02/24/17 02/24/17 02/24/17 06:00 06:33 07:00 07:04 Pulse 73 81 73 Resp 15 14 B/P 134/84 135/86 125/82 Pulse Ox 96 99 96 O2 Delivery Ventilator Ventilator Ventilator 02/24/17 02/24/17 02/24/17 02/24/17 08:00 08:00 09:00 10:00 Temp 98.6 98.6 Pulse 82 74 80 Resp 14 14 14 B/P 111/65 131/83 115/74 Pulse Ox 96 95 96 O2 Delivery Mechanical Ventilator Ventilator Ventilator Ventilator Intake and Output 02/23/17 02/23/17 02/24/17 15:00 23:00 07:00 Intake Total 0 ml 1070 ml 2320.9 ml Output Total 750 ml 975 ml Balance 0 ml 320 ml 1345.9 ml Nutrition Consultation Dietary Evaluation: Comments: Rec. continue TF's with Peptamen AF, goal rate 45 ml/hr flushes 125ml q4h if no IVF's Rec. MVI and 500mg vit c BID to aid wound healing Expected Outcomes/Goals: Tolerate TF's at goal rate to meet >75% est nutr needs Malnutrition Findings: Reduced Bindery Manager Strength: N/A Malnutrition related to morbid: No Weight Status: Obese OLIVIA MIR K III DO February 24, 2017 11:00
--- NOTE | 2017-02-24 11:48 | PDOC ---
Objective: Objective: Extubated this morning. Vital Signs: Vital Signs Date Time Temp Pulse Resp B/P Pulse Ox O2 Delivery O2 Flow Rate FiO2 02/24/17 11:08 Nasal Cannula 4.0 02/24/17 11:00 92 26 156/89 92 02/24/17 08:00 98.6 98.6 Labs: Laboratory Tests Test 02/23/17 12:14 02/23/17 17:46 02/23/17 21:08 02/24/17 00:09 Glucose (Fingerstick) 340mg/dL (70-99) 252mg/dL (70-99) 269mg/dL (70-99) 304mg/dL (70-99) Test 02/24/17 06:39 Glucose (Fingerstick) 282mg/dL (70-99) Imaging: CXR 02/23/17 IMPRESSION: Stable bilateral interstitial lung infiltrates. PE: GEN: NAD LUNGS: decreased, nasal cannula HEART: RRR ABD: BS+, S/ND/NT NEURO/PSYCH: says nicki A/P: NSTEMI, resp failure -extubated 02/24/17 Gastroparesis -EGD and colonoscopy 02/14/17: chronic gastritis, hiatal hernia, sigmoid diverticulum, internal hemorrhoids -on IV PPI, previous adverse reaction to Reglan, h/o DM -- Extubated, await swallow eval. JF CENTENO February 24, 2017 11:48
[2017-02-24] MEDS: PIPERACILLIN/TAZOBACTAM 3.375 GM in IV NORMAL SALINE 50ML 50 ML IV SCH ×3 (12:15→23:58)
--- NOTE | 2017-02-24 13:42 | PDOC ---
ELY CHURCH LITHOPONE CHARGER 02/24/17 1342: CARDIO Progress Notes Date and Time Date of Service 02/24/2017 Time of Evaluation 1200 Subjective Subjective: No Chest Pain, No Palpitations, No Dizziness, Other (Extubated today) Vitals Vitals Vital Signs Date Time Temp Pulse Resp B/P Pulse Ox O2 Delivery O2 Flow Rate FiO2 02/24/17 12:04 85 145/81 02/24/17 12:00 Nasal Cannula 4.0 02/24/17 12:00 98.3 14 93 98.3 Weight Weight [ ] Input and Output Intake and Output Intake and Output 02/24/17 07:00 Intake Total 3390.9 ml Output Total 1725 ml Balance 1665.9 ml IV Total 1005.9 ml Tube Feeding 1605 ml Other 780 ml Output Urine Total 1725 ml Gastric Drainage Total 0 ml Laboratory Labs Laboratory Tests Test 02/23/17 14:30 02/23/17 17:46 02/23/17 21:08 02/23/17 21:10 Heparin Anti-Xa Act, Unfractionated 0.53IU/mL (0.30-0.70) 0.48IU/mL (0.30-0.70) Glucose (Fingerstick) 252mg/dL (70-99) 269mg/dL (70-99) Test 02/24/17 00:09 02/24/17 06:20 02/24/17 06:39 02/24/17 07:05 Glucose (Fingerstick) 304mg/dL (70-99) 282mg/dL (70-99) White Blood Count 11.5x10^3/uL (4.0-11.0) Red Blood Count 4.36x10^6/uL (3.50-5.40) Hemoglobin 10.2g/dL (12.0-15.5) Hematocrit 33.7% (36.0-47.0) Mean Corpuscular Volume 77fL (79-100) Mean Corpuscular Hemoglobin 23pg (25-35) Mean Corpuscular Hemoglobin Concent 30g/dL (31-37) Red Cell Distribution Width 23.3% (11.5-14.5) Platelet Count 157x10^3/uL (140-400) Neutrophils (%) (Auto) 88% (31-73) Lymphocytes (%) (Auto) 5% (24-48) Monocytes (%) (Auto) 8% (0-9) Eosinophils (%) (Auto) 0% (0-3) Basophils (%) (Auto) 0% (0-3) Neutrophils # (Auto) 10.1x10^3uL (1.8-7.7) Lymphocytes # (Auto) 0.5x10^3/uL (1.0-4.8) Monocytes # (Auto) 0.9x10^3/uL (0.0-1.1) Eosinophils # (Auto) 0.0x10^3/uL (0.0-0.7) Basophils # (Auto) 0.0x10^3/uL (0.0-0.2) Reticulocyte Count (auto) 2.3% (0.5-2.5) Heparin Anti-Xa Act, Unfractionated 0.51IU/mL (0.30-0.70) Sodium Level 136mmol/L (136-145) Potassium Level 3.7mmol/L (3.5-5.1) Chloride Level 100mmol/L (98-107) Carbon Dioxide Level 30mmol/L (21-32) Anion Gap 6 (6-14) Blood Urea Nitrogen 47mg/dL (7-20) Creatinine 1.1mg/dL (0.6-1.0) Estimated GFR (Cockcroft-Gault) 50.3 Glucose Level 310mg/dL (70-99) Calcium Level 8.6mg/dL (8.5-10.1) Phosphorus Level 3.4mg/dL (2.6-4.7) Magnesium Level 2.1mg/dL (1.8-2.4) Iron Level 45ug/dL (50-170) Total Iron Binding Capacity 359ug/dL (250-450) Iron Saturation 13% (15-34) Ferritin 44ng/mL (8-252) Creatine Kinase 79U/L (26-192) Albumin 3.1g/dL (3.4-5.0) O2 Saturation 95% (92-99) Arterial Blood pH 7.47 (7.35-7.45) Arterial Blood pCO2 at Patient Temp 42mmHg (35-46) Arterial Blood pO2 at Patient Temp 78mmHg (65-108) Arterial Blood HCO3 30mmol/L (21-28) Arterial Blood Base Excess 6mmol/L (-3-3) FiO2 40 Test 02/24/17 10:45 02/24/17 12:04 O2 Saturation 94% (92-99) Arterial Blood pH 7.43 (7.35-7.45) Arterial Blood pCO2 at Patient Temp 44mmHg (35-46) Arterial Blood pO2 at Patient Temp 77mmHg (65-108) Arterial Blood HCO3 29mmol/L (21-28) Arterial Blood Base Excess 4mmol/L (-3-3) FiO2 40 Glucose (Fingerstick) 289mg/dL (70-99) Microbiology Micro Microbiology 02/18/17 Urine Culture - Final, Complete 02/18/17 Urine Culture Result 1 (NORBERTO) - Final, Complete Physical Exam HEENT: Neck Supple W Full Motion Chest: Symmetric LUNGS: Other (dminished with faint crackles) Heart: S1S2, RRR (SR/ST), other (distant heart tones ) Abdomen: Soft N/T Extremities: Other (trace to 1+ bilateral LE pitting edema) Neurology: alert, oriented, follow commands Assessment Assessment 1. Multiorgan failure with sepsis: significant improvement 2. NSTEMI: Multifactorial, peaked Troponin at 31 3. CAD: at [facility]- CABG 04/30/16 with MCCLAIN to the LAD, FIGUEROA T graft to the circumflex obtuse marginal, and left radial artery to the PDA. LVEF 55-60%. 4. Acute on chronic respiratory failure: extubated today 5. Shock liver with notable thrombocytopenia: improved 6. BRADLEY/ATN with CKD: improved 7. Diabetes 8. Hypothyroidism Recommendations 1. Will consider for [facility] Friday or Friday 2. Continue with heparin drip 3. Increase lopressor IV. 4. PO secondary prevention measures to commence pending swallow study tomorrow CAMPOS PATIÑO MD 02/24/17 1641: CARDIO Progress Notes Assessment Assessment Patient seen and examined. Agree with SUPERVISOR CORRESPONDENCE SECTION's assessment and plan. s/p extubation, doing well. Telemetry did not show any significant arrhythmias. Continue heparin infusion. Plan for cardiac catheterization and possible angioplasty tomorrow. ELY CHURCH APRN February 24, 2017 13:42 CAMPOS PATIÑO MD February 24, 2017 16:41
[2017-02-24] MEDS: IV NORMAL SALINE 1000ML BAG 1,000 ML IV SCH (14:00)
[2017-02-24] MEDS ORDERED: METOPROLOL TARTRATE 5 MG/5 ML VIAL. IVP ONE (14:00)
[2017-02-24] MEDS: INSULIN DETEMIR 300 UNITS/3 ML INSULN.PEN. SQ SCH (20:53)
[2017-02-24] MEDS: fentaNYL PF VIAL 100 MCG/2 ML VIAL IV PRN (21:47)
[2017-02-25] VITALS (13 sets, daily range): BP systolic 115–191; BP diastolic 69–109
[2017-02-25 00:57] LABS: BILIRUBIN,URINE NEGATIVE (NEG); GLUCOSE,URINE >=1000 mg/dL (NEG); NITRITE,URINE NEGATIVE (NEG); PH,URINE 5.5; PROTEIN,URINE 30 mg/dL (NEG-TRACE)
[2017-02-25 01:07] LABS: BACTERIA,URINE FEW /HPF (0-FEW); SQUAMOUS EPITHELIAL CELL,UR MOD /LPF; WBC,URINE OCC /HPF (0-4)
[2017-02-25] MEDS: INSULIN ASPART 300 UNITS/3 ML INSULN.PEN SQ SCH ×4 (06:00→18:00)
[2017-02-25] MEDS: METOPROLOL TARTRATE 5 MG/5 ML VIAL. IVP SCH ×4 (06:16→23:34)
[2017-02-25] MEDS: PIPERACILLIN/TAZOBACTAM 3.375 GM in IV NORMAL SALINE 50ML 50 ML IV SCH (06:21)
[2017-02-25] MEDS: DEXTROSE 50% 25 GM / 50ML DISP.SYRIN. IV PRN ×5 (06:42→19:15)
[2017-02-25 07:17] LABS: ALBUMIN 3.2 g/dL (3.4-5.0); CALCIUM 8.9 mg/dL (8.5-10.1); CREATININE 0.8 mg/dL (0.6-1.0); GFR 72.7; MAGNESIUM 2.1 mg/dL (1.8-2.4); PHOSPHORUS 3.2 mg/dL (2.6-4.7)
[2017-02-25 07:21] LABS: BASO % 0 % (0-3); EOS % 0 % (0-3); HEMOGLOBIN 11.1 g/dL (12.0-15.5); LYMPH # 2.4 x10^3/uL (1.0-4.8); LYMPH % 12 % (24-48); MEAN CORPUSCULAR HEMOGLOBIN 23 pg (25-35); MEAN CORPUSCULAR HGB CONC 30 g/dL (31-37); MEAN CORPUSCULAR VOLUME 78 fL (79-100); MONO % 11 % (0-9); NEUT % 77 % (31-73); PLATELET COUNT 252 x10^3/uL (140-400); RED BLOOD COUNT 4.76 x10^6/uL (3.50-5.40); RED CELL DISTRIBUTION WIDTH 23.3 % (11.5-14.5); WHITE BLOOD COUNT 19.6 x10^3/uL (4.0-11.0)
--- NOTE | 2017-02-25 07:46 | PDOC ---
Infectious Disease Note Subjective Subjective extubated, looking and feeling good ROS ROS no n/v/d/pain/sob Vital Sign Vital Signs Vital Signs Date Time Temp Pulse Resp B/P Pulse Ox O2 Delivery O2 Flow Rate FiO2 02/25/17 06:16 72 131/80 02/25/17 06:00 98.2 22 92 Nasal Cannula 5.0 98.2 Physical Exam PHYSICAL EXAM GENERAL: NAD, Alert HEENT: PERRL, OC/OP NECK: Supple, no JVD, no LN LUNGS: Clear HEART: S1S2, no gallop, no murmur ABD: Soft, NT, no organomegaly, no rebound EXT: No edema, no cyanosis FOOD PROCESSOR: Alert, oriented x 3, no focal neurologic deficit SKIN: No rash IV: ok Labs Lab Laboratory Tests Test 02/24/17 10:45 02/24/17 12:04 02/24/17 17:11 02/24/17 20:45 O2 Saturation 94% (92-99) Arterial Blood pH 7.43 (7.35-7.45) Arterial Blood pCO2 at Patient Temp 44mmHg (35-46) Arterial Blood pO2 at Patient Temp 77mmHg (65-108) Arterial Blood HCO3 29mmol/L (21-28) Arterial Blood Base Excess 4mmol/L (-3-3) FiO2 40 Glucose (Fingerstick) 289mg/dL (70-99) 200mg/dL (70-99) 182mg/dL (70-99) Test 02/24/17 23:53 02/25/17 06:36 02/25/17 06:40 02/25/17 07:28 Urine Collection Type Unknown Urine Color Yellow Urine Clarity Clear Urine pH 5.5 Urine Specific [place] >=1.030 Urine Protein 30mg/dL (NEG-TRACE) Urine Glucose (UA) >=1000mg/dL (NEG) Urine Ketones (Stick) Negativemg/dL (NEG) Urine Blood Moderate (NEG) Urine Nitrite Negative (NEG) Urine Bilirubin Negative (NEG) Urine Urobilinogen Dipstick 1.0mg/dL (0.2 mg/dL) Urine Leukocyte Esterase Negative (NEG) Urine RBC 6-10/HPF (0-2) Urine WBC Occ/HPF (0-4) Urine Squamous Epithelial Cells Mod/LPF Urine Bacteria Few/HPF (0-FEW) Urine Hyaline Casts Occasional/HPF Urine Mucus Mod/LPF Glucose (Fingerstick) 41mg/dL (70-99) 44mg/dL (70-99) White Blood Count 19.6x10^3/uL (4.0-11.0) Red Blood Count 4.76x10^6/uL (3.50-5.40) Hemoglobin 11.1g/dL (12.0-15.5) Hematocrit 37.0% (36.0-47.0) Mean Corpuscular Volume 78fL (79-100) Mean Corpuscular Hemoglobin 23pg (25-35) Mean Corpuscular Hemoglobin Concent 30g/dL (31-37) Red Cell Distribution Width 23.3% (11.5-14.5) Platelet Count 252x10^3/uL (140-400) Neutrophils (%) (Auto) 77% (31-73) Lymphocytes (%) (Auto) 12% (24-48) Monocytes (%) (Auto) 11% (0-9) Eosinophils (%) (Auto) 0% (0-3) Basophils (%) (Auto) 0% (0-3) Neutrophils # (Auto) 15.1x10^3uL (1.8-7.7) Lymphocytes # (Auto) 2.4x10^3/uL (1.0-4.8) Monocytes # (Auto) 2.1x10^3/uL (0.0-1.1) Eosinophils # (Auto) 0.1x10^3/uL (0.0-0.7) Basophils # (Auto) 0.0x10^3/uL (0.0-0.2) Sodium Level 144mmol/L (136-145) Potassium Level 3.0mmol/L (3.5-5.1) Chloride Level 104mmol/L (98-107) Carbon Dioxide Level 33mmol/L (21-32) Anion Gap 7 (6-14) Blood Urea Nitrogen 41mg/dL (7-20) Creatinine 0.8mg/dL (0.6-1.0) Estimated GFR (Cockcroft-Gault) 72.7 Glucose Level 40mg/dL (70-99) Calcium Level 8.9mg/dL (8.5-10.1) Phosphorus Level 3.2mg/dL (2.6-4.7) Magnesium Level 2.1mg/dL (1.8-2.4) Creatine Kinase 111U/L (26-192) Albumin 3.2g/dL (3.4-5.0) Test 02/25/17 07:42 Glucose (Fingerstick) 231mg/dL (70-99) Objective Assessment ? sepsis vs SIRS. Received Solu-Medrol in [facility]. On Solu-Cortef. Off pressors NSTEMI Ecoli in urine 02/17 ? colonization - Res to Pip but she is responding so likely sens to Zosyn Hyperglycemia ? Aspiration - intubated- h/o Pulm fibrosis Lactic acidosis - improved BRADLEY - dehydration. Getting HD Transaminitis H/o elevated CORA DM and gastroparesis Plan Plan of Care d/c Zosyn Monitor labs Supportive ELIAS AMEZQUITA MD February 25, 2017 07:46
[2017-02-25] MEDS: ASPIRIN CHEWABLE 81 MG TABLET. PO SCH (08:00)
[2017-02-25] MEDS: CITALOPRAM 20 MG TABLET. NG SCH (08:03)
[2017-02-25] MEDS: CHLORHEXIDINE 0.12% 15 ML MOUTHWASH. SWSP SCH (08:03)
[2017-02-25] MEDS: buPROPion 75 MG TABLET. NG SCH ×2 (08:03→21:00)
[2017-02-25] MEDS: IPRATRPIUM/ALBUTEROL 0.5/2.5MG 3 ML NEBU. NEB SCH ×4 (08:13→19:35)
[2017-02-25] MEDS: IV NORMAL SALINE 1000ML BAG 1,000 ML IV SCH ×2 (08:42→16:40)
--- NOTE | 2017-02-25 08:42 | PDOC ---
SUBJECTIVE ROS BRADLEY - now resolved c/o hungry no NVD OBJECTIVE Vital Signs Vital Signs Date Time Temp Pulse Resp B/P Pulse Ox O2 Delivery O2 Flow Rate FiO2 02/25/17 08:14 95 Nasal Cannula 5.0 02/25/17 06:16 72 131/80 02/25/17 06:00 98.2 22 98.2 I & 0 Intake and Output 02/25/17 07:00 Intake Total 1207.55 ml Output Total 1500 ml Balance -292.45 ml Intake Oral 0 ml IV Total 1207.55 ml Tube Feeding 0 ml Output Urine Total 1500 ml Gastric Drainage Total 0 ml # Bowel Movements 1 PHYSICAL EXAM Physical Exam GEN: extubated; In no distress; AAO x 2 EYES: Sclera anicteric, Conjunctiva Normal EN: No EN Drainage, Mucous Membranes moist NECK: no JVD, + JVP, Supple, no Thyromegaly CVS: S1S2, no Murmur, No Gallop, No Rub, + Edema RESP: rare Rales, no Rhonchi,no Acc. Muscle Use GI: BS + ve, NO Bruit, Non Tender, Non Distended : no CVA tenderness, no Suprapubic Tenderness DIAGNOSIS/ASSESSMENT BRADLEY - resolved Hyperglycemia/ hypoglycemia - defer to Primary team to control Edema - wean hydrocortisone and reval. gentle diuresis later prn Anemia - IV Fe x 5 Proteinuria - < 1gm as noted by ratio. Not sure if she has some residual hematuria from previous HTN - labile based on state/ depth of sedation; better after weaning hydrocortisone; Tendency to Low K - (? due to Zosyn and hydrocortisone) replace per sliding scale; wean hydrocortisone and reval. Will s/o COMMENT/RELEVANT DATA Meds Current Medications Medications (Trade) Dose Ordered Sig/Janeen Start Time Stop Time Status Last Admin Dose Admin Acetaminophen (Tylenol) 500 mg 1X PRN PRN 02/18/17 08:00 02/19/17 07:59 DC Acetaminophen 650 mg 650 mg PRN Q6HRS PRN 02/17/17 02:00 Albumin Human (Albuminar) 100 ml @ 100 mls/hr TID 02/19/17 09:00 02/20/17 21:59 DC 02/20/17 20:51 100 MLS/HR Albuterol/ Ipratropium (Duoneb) 3 ml RTQID 02/21/17 12:00 02/25/17 08:13 3 ML Aspirin (Ecotrin) 81 mg [id number] 02/23/17 08:00 02/23/17 08:00 DC Aspirin 81 mg 81 mg [id number] 02/23/17 08:00 02/24/17 08:32 81 MG Bupropion HCl (Wellbutrin) 75 mg BID 02/19/17 12:00 02/24/17 08:32 75 MG Calcium Chloride 2000 mg/Sodium Chloride 120 ml @ 240 mls/hr 1X ONCE 02/19/17 08:00 02/19/17 08:29 DC Chlorhexidine Gluconate (Peridex) 15 ml BID 02/17/17 21:00 02/25/17 08:05 DC 02/24/17 20:54 15 ML Citalopram Hydrobromide 20 mg 20 mg DAILY 02/19/17 12:00 02/24/17 08:32 20 MG Clonidine HCl 0.1 mg 0.1 mg 1X PRN PRN 02/18/17 08:00 02/19/17 07:59 DC Dextrose 12.5 gm 12.5 gm PRN Q15MIN PRN 02/18/17 21:00 02/25/17 07:33 25 GM Diphenhydramine HCl (Benadryl) 25 mg 1X PRN PRN 02/18/17 08:00 02/19/17 07:59 DC Fentanyl Citrate (Fentanyl 2ml Vial) 50 mcg PRN Q2HR PRN 02/17/17 09:00 02/24/17 21:47 50 MCG Heparin Sodium (Porcine) (Heparin Sodium) 2,500 unit 1X ONCE 02/17/17 10:15 02/17/17 10:16 DC Heparin Sodium/ Dextrose 500 ml @ 20 mls/hr CONT PRN 02/19/17 13:15 02/23/17 21:22 20 MLS/HR Heparin Sodium/ Sodium Chloride 60 unit 1X ONCE 02/17/17 10:15 02/17/17 10:16 DC Hydrocortisone Sodium Succinate (Solu-Cortef) 25 mg BID 02/25/17 09:00 Hydrocortisone Sodium Succinate 100 mg 100 mg ONCE ONCE 02/17/17 10:30 02/17/17 10:31 DC 02/17/17 10:36 100 MG Info (PHARMACY MONITORING -- do not chart) 1 each PRN DAILY PRN 02/17/17 12:30 UNV Info 1 each 1 each PRN DAILY PRN 02/20/17 07:45 02/24/17 09:53 1 EACH Insulin Aspart (Novolog) 0-7 UNITS Q6HRS 02/19/17 00:00 02/24/17 12:08 6 UNITS Insulin Detemir (Levemir) 30 units QHS 02/22/17 21:00 02/24/17 20:53 30 UNITS Labetalol HCl (Normodyne) 10 mg PRN Q1HR PRN 02/18/17 08:00 02/19/17 07:59 DC Levothyroxine Sodium/Sodium Chloride (Synthroid/Iv Sodium Chloride 0.9% 50ml) 5 ml @ 100 mls/hr DAILY 02/17/17 09:00 02/24/17 08:33 100 MLS/HR Lidocaine/Sodium Bicarbonate (Buffered Lidocaine 1%) 3 ml 1X ONCE 02/17/17 10:15 02/17/17 10:16 DC Magnesium Sulfate/ Dextrose 50 ml @ 25 mls/hr PRN DAILY PRN 02/19/17 07:45 02/19/17 10:20 DC Magnesium Sulfate/ Dextrose (Magnesium Sulfate PREMIX 2GM) 50 ml @ 25 mls/hr 1X ONCE 02/17/17 09:00 02/17/17 10:59 DC 02/17/17 09:30 25 MLS/HR Metoprolol Tartrate (Lopressor) 5 mg Q6HRS 02/24/17 18:00 02/25/17 06:16 5 MG Metoprolol Tartrate 2.5 mg 2.5 mg 1X ONCE 02/24/17 14:00 02/24/17 14:01 DC 02/24/17 14:49 2.5 MG Midazolam HCl 100 ml @ 0 mls/hr CONT PRN 02/17/17 02:30 02/17/17 20:34 5 MLS/HR Nitroglycerin/ Dextrose 250 ml @ 0 mls/hr 1X ONCE 02/23/17 12:30 02/23/17 12:31 DC Norepinephrine Bitartrate 250 ml @ 0 mls/hr CONT PRN 02/17/17 06:15 02/18/17 11:15 7.5 MLS/HR Ondansetron HCl (Zofran) 4 mg PRN Q6HRS PRN 02/17/17 02:00 Pantoprazole Sodium (Protonix Vial) 40 mg DAILY 02/18/17 09:00 02/24/17 08:32 40 MG Piperacillin Sod/ Tazobactam Sod 2.25 gm/Sodium Chloride 50 ml @ 100 mls/hr Q8HRS 02/17/17 08:45 02/24/17 09:48 DC 02/24/17 06:33 100 MLS/HR Piperacillin Sod/ Tazobactam Sod/ Sodium Chloride (Zosyn/Iv Sodium Chloride 0.9% 50ml) 50 ml @ 100 mls/hr Q6HRS 02/24/17 12:00 02/25/17 07:47 DC 02/25/17 06:21 100 MLS/HR Pneumococcal Polyvalent Vaccine 0.5 ml 0.5 ml ONCE ONCE 02/17/17 09:00 02/17/17 09:01 DC Pneumococcal Polyvalent Vaccine (Do NOT chart on this placeholder) 1 each 1X ONCE 02/17/17 06:00 02/17/17 06:01 UNV Potassium Chloride (KCl Premix 20meq) 50 ml @ 50 mls/hr Q1HR 02/20/17 09:00 02/20/17 10:59 DC 02/20/17 09:48 50 MLS/HR Propofol (Diprivan) 100 ml @ 0 mls/hr CONT PRN 02/18/17 12:45 02/25/17 08:05 DC 02/24/17 06:49 15.351 MLS/HR Sodium Bicarbonate 100 meq 100 meq 1X ONCE 02/17/17 09:45 02/17/17 09:48 DC 02/17/17 09:51 100 MEQ Sodium Bicarbonate 150 meq/Dextrose 1,150 ml @ 150 mls/hr [id number] 02/17/17 09:45 02/17/17 18:05 DC 02/17/17 10:34 150 MLS/HR Sodium Polystyrene Sulfonate (Kayexalate) 30 gm 1X ONCE 02/17/17 02:45 02/17/17 02:46 DC 02/17/17 03:54 30 GM Sodium Bicarbonate 50 meq STK-MED ONCE 02/17/17 09:42 02/17/17 09:43 DC Sodium Chloride (Iv Sodium Chloride 0.9% 1000ml Bag) 1,000 ml @ 75 mls/hr [id number] 02/24/17 14:00 02/24/17 14:00 75 MLS/HR Sodium Chloride (Normal Saline Flush) 10 ml 1X PRN PRN 02/17/17 12:30 02/18/17 12:29 DC Vancomycin HCl 1 each 1X ONCE 02/19/17 10:30 02/19/17 10:30 DC Vancomycin HCl (Vanco Per Pharmacy) 1 each PRN DAILY PRN 02/17/17 10:15 02/18/17 12:50 DC 02/17/17 10:28 1 EACH Vancomycin HCl/ Sodium Chloride (Iv Sodium Chloride 0.9% 500ml Bag) 500 ml @ 250 mls/hr ONCE ONCE 02/17/17 10:30 02/17/17 12:29 DC 02/17/17 13:53 250 MLS/HR Vasopressin 40 unit/Dextrose 102 ml @ 6 mls/hr CONT PRN 02/17/17 10:15 02/23/17 07:49 DC 02/18/17 13:53 6 MLS/HR Vasopressin/ Dextrose (Vasostrict) 102 ml @ 6 mls/hr ONCE ONCE 02/17/17 10:00 02/18/17 02:59 DC 02/17/17 10:34 6 MLS/HR Lab Laboratory Tests Test 02/24/17 10:45 02/24/17 12:04 02/24/17 17:11 02/24/17 20:45 O2 Saturation 94% (92-99) Arterial Blood pH 7.43 (7.35-7.45) Arterial Blood pCO2 at Patient Temp 44mmHg (35-46) Arterial Blood pO2 at Patient Temp 77mmHg (65-108) Arterial Blood HCO3 29mmol/L (21-28) Arterial Blood Base Excess 4mmol/L (-3-3) FiO2 40 Glucose (Fingerstick) 289mg/dL (70-99) 200mg/dL (70-99) 182mg/dL (70-99) Test 02/24/17 23:53 02/25/17 06:36 02/25/17 06:40 02/25/17 07:28 Urine Collection Type Unknown Urine Color Yellow Urine Clarity Clear Urine pH 5.5 Urine Specific [place] >=1.030 Urine Protein 30mg/dL (NEG-TRACE) Urine Glucose (UA) >=1000mg/dL (NEG) Urine Ketones (Stick) Negativemg/dL (NEG) Urine Blood Moderate (NEG) Urine Nitrite Negative (NEG) Urine Bilirubin Negative (NEG) Urine Urobilinogen Dipstick 1.0mg/dL (0.2 mg/dL) Urine Leukocyte Esterase Negative (NEG) Urine RBC 6-10/HPF (0-2) Urine WBC Occ/HPF (0-4) Urine Squamous Epithelial Cells Mod/LPF Urine Bacteria Few/HPF (0-FEW) Urine Hyaline Casts Occasional/HPF Urine Mucus Mod/LPF Glucose (Fingerstick) 41mg/dL (70-99) 44mg/dL (70-99) White Blood Count 19.6x10^3/uL (4.0-11.0) Red Blood Count 4.76x10^6/uL (3.50-5.40) Hemoglobin 11.1g/dL (12.0-15.5) Hematocrit 37.0% (36.0-47.0) Mean Corpuscular Volume 78fL (79-100) Mean Corpuscular Hemoglobin 23pg (25-35) Mean Corpuscular Hemoglobin Concent 30g/dL (31-37) Red Cell Distribution Width 23.3% (11.5-14.5) Platelet Count 252x10^3/uL (140-400) Neutrophils (%) (Auto) 77% (31-73) Lymphocytes (%) (Auto) 12% (24-48) Monocytes (%) (Auto) 11% (0-9) Eosinophils (%) (Auto) 0% (0-3) Basophils (%) (Auto) 0% (0-3) Neutrophils # (Auto) 15.1x10^3uL (1.8-7.7) Lymphocytes # (Auto) 2.4x10^3/uL (1.0-4.8) Monocytes # (Auto) 2.1x10^3/uL (0.0-1.1) Eosinophils # (Auto) 0.1x10^3/uL (0.0-0.7) Basophils # (Auto) 0.0x10^3/uL (0.0-0.2) Sodium Level 144mmol/L (136-145) Potassium Level 3.0mmol/L (3.5-5.1) Chloride Level 104mmol/L (98-107) Carbon Dioxide Level 33mmol/L (21-32) Anion Gap 7 (6-14) Blood Urea Nitrogen 41mg/dL (7-20) Creatinine 0.8mg/dL (0.6-1.0) Estimated GFR (Cockcroft-Gault) 72.7 Glucose Level 40mg/dL (70-99) Calcium Level 8.9mg/dL (8.5-10.1) Phosphorus Level 3.2mg/dL (2.6-4.7) Magnesium Level 2.1mg/dL (1.8-2.4) Creatine Kinase 111U/L (26-192) Albumin 3.2g/dL (3.4-5.0) Test 02/25/17 07:42 Glucose (Fingerstick) 231mg/dL (70-99) DELLA AMEZQUITA MD February 25, 2017 08:42
[2017-02-25] MEDS: PANTOPRAZOLE IV PUSH 40 MG VIAL. IVP SCH (08:43)
[2017-02-25] MEDS: LEVOTHYROXINE SODIUM 37.5 MCG in IV NORMAL SALINE 50ML 5 ML IVP SCH (08:43)
[2017-02-25] MEDS: HYDROCORTISONE SOD SUCC/PF 100 MG/2 ML VIAL. IV SCH ×2 (08:43→22:00)
[2017-02-25 09:46] LABS: PLT ESTIMATE ADEQUATE (ADEQUATE)
[2017-02-25 09:47] LABS: ANISOCYTOSIS MOD; HYPOCHROMIA SLIGHT
[2017-02-25 09:48] LABS: POIKILOCYTOSIS PRESENT; SCHISTOCYTES OCC
--- NOTE | 2017-02-25 11:04 | PDOC ---
PULMONARY PROGRESS NOTES Subjective extubated 02/24 doing well Vitals Vital Signs Date Time Temp Pulse Resp B/P Pulse Ox O2 Delivery O2 Flow Rate FiO2 02/25/17 10:00 80 29 165/98 92 Nasal Cannula 4.0 02/25/17 08:00 98.3 98.3 General: Alert, No acute distress Lungs: Other (decrease bs) Cardiovascular: S1, S2 Abdomen: Soft Extremities: Other (1+edema) Skin: Warm Labs Laboratory Tests Test 02/23/17 12:14 02/23/17 14:30 02/23/17 17:46 02/23/17 21:08 Glucose (Fingerstick) 340mg/dL (70-99) 252mg/dL (70-99) 269mg/dL (70-99) Heparin Anti-Xa Act, Unfractionated 0.53IU/mL (0.30-0.70) Test 02/23/17 21:10 02/24/17 00:09 02/24/17 06:20 02/24/17 06:39 Heparin Anti-Xa Act, Unfractionated 0.48IU/mL (0.30-0.70) 0.51IU/mL (0.30-0.70) Glucose (Fingerstick) 304mg/dL (70-99) 282mg/dL (70-99) White Blood Count 11.5x10^3/uL (4.0-11.0) Red Blood Count 4.36x10^6/uL (3.50-5.40) Hemoglobin 10.2g/dL (12.0-15.5) Hematocrit 33.7% (36.0-47.0) Mean Corpuscular Volume 77fL (79-100) Mean Corpuscular Hemoglobin 23pg (25-35) Mean Corpuscular Hemoglobin Concent 30g/dL (31-37) Red Cell Distribution Width 23.3% (11.5-14.5) Platelet Count 157x10^3/uL (140-400) Neutrophils (%) (Auto) 88% (31-73) Lymphocytes (%) (Auto) 5% (24-48) Monocytes (%) (Auto) 8% (0-9) Eosinophils (%) (Auto) 0% (0-3) Basophils (%) (Auto) 0% (0-3) Neutrophils # (Auto) 10.1x10^3uL (1.8-7.7) Lymphocytes # (Auto) 0.5x10^3/uL (1.0-4.8) Monocytes # (Auto) 0.9x10^3/uL (0.0-1.1) Eosinophils # (Auto) 0.0x10^3/uL (0.0-0.7) Basophils # (Auto) 0.0x10^3/uL (0.0-0.2) Reticulocyte Count (auto) 2.3% (0.5-2.5) Sodium Level 136mmol/L (136-145) Potassium Level 3.7mmol/L (3.5-5.1) Chloride Level 100mmol/L (98-107) Carbon Dioxide Level 30mmol/L (21-32) Anion Gap 6 (6-14) Blood Urea Nitrogen 47mg/dL (7-20) Creatinine 1.1mg/dL (0.6-1.0) Estimated GFR (Cockcroft-Gault) 50.3 Glucose Level 310mg/dL (70-99) Calcium Level 8.6mg/dL (8.5-10.1) Phosphorus Level 3.4mg/dL (2.6-4.7) Magnesium Level 2.1mg/dL (1.8-2.4) Iron Level 45ug/dL (50-170) Total Iron Binding Capacity 359ug/dL (250-450) Iron Saturation 13% (15-34) Ferritin 44ng/mL (8-252) Creatine Kinase 79U/L (26-192) Albumin 3.1g/dL (3.4-5.0) Test 02/24/17 07:05 02/24/17 10:45 02/24/17 12:04 02/24/17 17:11 O2 Saturation 95% (92-99) 94% (92-99) Arterial Blood pH 7.47 (7.35-7.45) 7.43 (7.35-7.45) Arterial Blood pCO2 at Patient Temp 42mmHg (35-46) 44mmHg (35-46) Arterial Blood pO2 at Patient Temp 78mmHg (65-108) 77mmHg (65-108) Arterial Blood HCO3 30mmol/L (21-28) 29mmol/L (21-28) Arterial Blood Base Excess 6mmol/L (-3-3) 4mmol/L (-3-3) FiO2 40 40 Glucose (Fingerstick) 289mg/dL (70-99) 200mg/dL (70-99) Test 02/24/17 20:45 02/24/17 23:53 02/25/17 06:36 02/25/17 06:40 Glucose (Fingerstick) 182mg/dL (70-99) 41mg/dL (70-99) Urine Collection Type Unknown Urine Color Yellow Urine Clarity Clear Urine pH 5.5 Urine Specific [place] >=1.030 Urine Protein 30mg/dL (NEG-TRACE) Urine Glucose (UA) >=1000mg/dL (NEG) Urine Ketones (Stick) Negativemg/dL (NEG) Urine Blood Moderate (NEG) Urine Nitrite Negative (NEG) Urine Bilirubin Negative (NEG) Urine Urobilinogen Dipstick 1.0mg/dL (0.2 mg/dL) Urine Leukocyte Esterase Negative (NEG) Urine RBC 6-10/HPF (0-2) Urine WBC Occ/HPF (0-4) Urine Squamous Epithelial Cells Mod/LPF Urine Bacteria Few/HPF (0-FEW) Urine Hyaline Casts Occasional/HPF Urine Mucus Mod/LPF White Blood Count 19.6x10^3/uL (4.0-11.0) Red Blood Count 4.76x10^6/uL (3.50-5.40) Hemoglobin 11.1g/dL (12.0-15.5) Hematocrit 37.0% (36.0-47.0) Mean Corpuscular Volume 78fL (79-100) Mean Corpuscular Hemoglobin 23pg (25-35) Mean Corpuscular Hemoglobin Concent 30g/dL (31-37) Red Cell Distribution Width 23.3% (11.5-14.5) Platelet Count 252x10^3/uL (140-400) Neutrophils (%) (Auto) 77% (31-73) Lymphocytes (%) (Auto) 12% (24-48) Monocytes (%) (Auto) 11% (0-9) Eosinophils (%) (Auto) 0% (0-3) Basophils (%) (Auto) 0% (0-3) Neutrophils # (Auto) 15.1x10^3uL (1.8-7.7) Lymphocytes # (Auto) 2.4x10^3/uL (1.0-4.8) Monocytes # (Auto) 2.1x10^3/uL (0.0-1.1) Eosinophils # (Auto) 0.1x10^3/uL (0.0-0.7) Basophils # (Auto) 0.0x10^3/uL (0.0-0.2) Segmented Neutrophils % 73% (35-66) Lymphocytes % 18% (24-48) Monocytes % 9% (0-10) Platelet Estimate Adequate (ADEQUATE) Large Platelets Present Hypochromasia Slight Poikilocytosis Present Anisocytosis Mod Schistocytes Occ Sodium Level 144mmol/L (136-145) Potassium Level 3.0mmol/L (3.5-5.1) Chloride Level 104mmol/L (98-107) Carbon Dioxide Level 33mmol/L (21-32) Anion Gap 7 (6-14) Blood Urea Nitrogen 41mg/dL (7-20) Creatinine 0.8mg/dL (0.6-1.0) Estimated GFR (Cockcroft-Gault) 72.7 Glucose Level 40mg/dL (70-99) Calcium Level 8.9mg/dL (8.5-10.1) Phosphorus Level 3.2mg/dL (2.6-4.7) Magnesium Level 2.1mg/dL (1.8-2.4) Creatine Kinase 111U/L (26-192) Albumin 3.2g/dL (3.4-5.0) Test 02/25/17 07:28 02/25/17 07:42 02/25/17 08:49 02/25/17 08:50 Glucose (Fingerstick) 44mg/dL (70-99) 231mg/dL (70-99) 72mg/dL (70-99) Heparin Anti-Xa Act, Unfractionated 0.35IU/mL (0.30-0.70) Test 02/25/17 10:19 02/25/17 10:49 Glucose (Fingerstick) 61mg/dL (70-99) 94mg/dL (70-99) Laboratory Tests Test 02/24/17 12:04 02/24/17 17:11 02/24/17 20:45 02/24/17 23:53 Glucose (Fingerstick) 289mg/dL (70-99) 200mg/dL (70-99) 182mg/dL (70-99) Urine Collection Type Unknown Urine Color Yellow Urine Clarity Clear Urine pH 5.5 Urine Specific [place] >=1.030 Urine Protein 30mg/dL (NEG-TRACE) Urine Glucose (UA) >=1000mg/dL (NEG) Urine Ketones (Stick) Negativemg/dL (NEG) Urine Blood Moderate (NEG) Urine Nitrite Negative (NEG) Urine Bilirubin Negative (NEG) Urine Urobilinogen Dipstick 1.0mg/dL (0.2 mg/dL) Urine Leukocyte Esterase Negative (NEG) Urine RBC 6-10/HPF (0-2) Urine WBC Occ/HPF (0-4) Urine Squamous Epithelial Cells Mod/LPF Urine Bacteria Few/HPF (0-FEW) Urine Hyaline Casts Occasional/HPF Urine Mucus Mod/LPF Test 02/25/17 06:36 02/25/17 06:40 02/25/17 07:28 02/25/17 07:42 Glucose (Fingerstick) 41mg/dL (70-99) 44mg/dL (70-99) 231mg/dL (70-99) White Blood Count 19.6x10^3/uL (4.0-11.0) Red Blood Count 4.76x10^6/uL (3.50-5.40) Hemoglobin 11.1g/dL (12.0-15.5) Hematocrit 37.0% (36.0-47.0) Mean Corpuscular Volume 78fL (79-100) Mean Corpuscular Hemoglobin 23pg (25-35) Mean Corpuscular Hemoglobin Concent 30g/dL (31-37) Red Cell Distribution Width 23.3% (11.5-14.5) Platelet Count 252x10^3/uL (140-400) Neutrophils (%) (Auto) 77% (31-73) Lymphocytes (%) (Auto) 12% (24-48) Monocytes (%) (Auto) 11% (0-9) Eosinophils (%) (Auto) 0% (0-3) Basophils (%) (Auto) 0% (0-3) Neutrophils # (Auto) 15.1x10^3uL (1.8-7.7) Lymphocytes # (Auto) 2.4x10^3/uL (1.0-4.8) Monocytes # (Auto) 2.1x10^3/uL (0.0-1.1) Eosinophils # (Auto) 0.1x10^3/uL (0.0-0.7) Basophils # (Auto) 0.0x10^3/uL (0.0-0.2) Segmented Neutrophils % 73% (35-66) Lymphocytes % 18% (24-48) Monocytes % 9% (0-10) Platelet Estimate Adequate (ADEQUATE) Large Platelets Present Hypochromasia Slight Poikilocytosis Present Anisocytosis Mod Schistocytes Occ Sodium Level 144mmol/L (136-145) Potassium Level 3.0mmol/L (3.5-5.1) Chloride Level 104mmol/L (98-107) Carbon Dioxide Level 33mmol/L (21-32) Anion Gap 7 (6-14) Blood Urea Nitrogen 41mg/dL (7-20) Creatinine 0.8mg/dL (0.6-1.0) Estimated GFR (Cockcroft-Gault) 72.7 Glucose Level 40mg/dL (70-99) Calcium Level 8.9mg/dL (8.5-10.1) Phosphorus Level 3.2mg/dL (2.6-4.7) Magnesium Level 2.1mg/dL (1.8-2.4) Creatine Kinase 111U/L (26-192) Albumin 3.2g/dL (3.4-5.0) Test 02/25/17 08:49 02/25/17 08:50 02/25/17 10:19 02/25/17 10:49 Glucose (Fingerstick) 72mg/dL (70-99) 61mg/dL (70-99) 94mg/dL (70-99) Heparin Anti-Xa Act, Unfractionated 0.35IU/mL (0.30-0.70) Medications Active Scripts Medications Dose Route/Sig Days Date Category Requip (Ropinirole Hcl) 1 Mg Tablet 4 Mg PO DAILY 02/14/17 Reported Aspir 81 (Aspirin) 81 Mg Tablet.dr 81 Mg PO DAILY 02/14/17 Reported Wellbutrin Sr (Bupropion Hcl) 150 Mg Tablet.er 150 Mg PO DAILY 02/14/17 Reported Toprol Xl (Metoprolol Succinate) 25 Mg Tab.er.24h 12 Mg PO DAILY 02/14/17 Reported Lasix (Furosemide) 40 Mg Tablet 40 Mg PO DAILY 02/14/17 Reported Pravastatin Sodium 40 Mg Tablet 40 Mg PO DAILY 02/14/17 Reported Pantoprazole Sodium 40 Mg Tablet.dr 40 Mg PO DAILY 02/14/17 Reported Soper 7.5-325 Tablet (Acetaminophen/Hydrocodone Bitart) 1 Each Tablet 1 Tab PO PRN Q6HRS PRN 12/06/14 Rx Doxycycline Hyclate 100 Mg Capsule 1 Cap PO BID 12/06/14 Reported Hydrocodone-Apap 5-325 (Hydrocodone Bit/Acetaminophen) 1 Each Tablet 1-2 Tab PO Q4-6HRS PRN 12/06/14 Reported Levothyroxine Sodium 75 Mcg Tablet 1 Tab PO DAILY 12/05/14 Reported Citalopram Hbr (Citalopram Hydrobromide) 20 Mg Tablet 20 Mg PO DAILY 12/05/14 Reported Losartan Potassium 50 Mg Tablet 50 Mg PO DAILY 12/05/14 Reported Metformin Hcl 500 Mg Tablet 1 Tab PO TIDWMEALS 12/05/14 Reported Comments cxr no change Impression . 1. Acute respiratory failure secondary to SEPTIC SHOCK, resolved, extubated 02/24 2. SEPTIC SHOCK, resolved 3. Acute renal failure, improved no further HD needed 4. 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 Not been on chronic steroids. 5. Marked anion gap metabolic acidosis secondary to septic shock./renal failure , improved 6. Non-ST myocardial infarction. 7. Nutrition ,on tube feeding 8. Abnormal cxr sec to old ILD Plan . 1. Doing well post extubation 2. antibiotics, per ID 3. pressors off 4. off Hemodialysis per nephro 5. Chest x-ray, follow up as needed 6. E coli UTI 8. DVT prophylaxis. 9. Stress ulcer prophylaxis.speech eval/ PT consult 10. taper Hydrocortisone 11. Echo report NOTED cath today COLETTE HARDIN MD February 25, 2017 11:04
[2017-02-25] MEDS ORDERED: IOHEXOL 350 MG/ML 100 ML VIAL. ONE (11:38)
[2017-02-25] MEDS ORDERED: LIDOCAINE 2% 20 ML VIAL. ONE (11:38)
--- NOTE | 2017-02-25 11:51 | PDOC ---
MODERATE SEDATION ASSESSMENT RISKS/ALTERNATIVES Risks/Alternatives Risks and alternatives of this type of sedation and procedure discussed with: RISK/ALTERNATIVES: Patient H & P ON CHART H & P H & P on chart and reviewed for co-morbid conditions and appropriate labs. H&P ON CHART: Yes STATUS PREG STATUS ASSESSED: N/A MEDS/ALLERGIES REVIEWED Meds/Allergies Reviewed Medications and Allergies including time and route of recently administered narcotics and sedatives. MEDS/ALLERGIES REVIEWED: Yes ASA RATING ASA RATING: II AIRWAY ASSESSMENT Airway Assessment Airway patency, oral function limitations, presence of caps, crowns, dentures, partials, and ability to extend neck assessed. AIRWAY ASSESSMENT: Yes MALLAMPATI SCORE MALLAMPATI SCORE: II PRE-SEDATION ASSESSMENT PRE-SEDATION ASSESSMENT: Yes CAMPOS PATIÑO MD February 25, 2017 11:51
[2017-02-25] MEDS ORDERED: MIDAZOLAM HCL/PF 2 MG/2 ML VIAL. ONE (12:01)
[2017-02-25] MEDS ORDERED: fentaNYL PF VIAL 100 MCG/2 ML VIAL ONE (12:01)
[2017-02-25] MEDS ORDERED: fentaNYL PF VIAL 100 MCG/2 ML VIAL IV ONE (12:30)
[2017-02-25] MEDS ORDERED: IOHEXOL 350 MG/ML 100 ML VIAL. IART ONE (12:30)
[2017-02-25] MEDS ORDERED: LIDOCAINE 2% 20 ML VIAL. IJ ONE (12:30)
[2017-02-25] MEDS ORDERED: MIDAZOLAM HCL/PF 2 MG/2 ML VIAL. IV ONE (12:30)
--- NOTE | 2017-02-25 12:35 | PDOC ---
PROGRESS NOTES Chief Complaint Chief Complaint cc: Respiratory failure -Pulmonary fibrosis -Acute renal failure -DM -CHF -CABG -NSTEMI -CAD -Smoking -Septic shock -HLD -HTN -FREDY -Obesity -Constipation -GERD -Breast excision -Hypothyroidism -Anxiety -Hepatitis A History of Present Illness History of Present Illness Ms. Betancourt was receiving a breathing treatment when we visited her. She has been extubated. She will have a cardiac cath today and a swallow study. We discussed the case with her nurse. Vitals Vitals Vital Signs Date Time Temp Pulse Resp B/P Pulse Ox O2 Delivery O2 Flow Rate FiO2 02/25/17 12:00 Nasal Cannula 4.0 02/25/17 11:00 79 26 184/109 99 02/25/17 08:00 98.3 98.3 Physical Exam General: Alert, Cooperative, No acute distress Heart: Regular rate, Normal S1, Normal S2 Lungs: Clear Abdomen: No hepatosplenomegaly, No masses Extremities: No cyanosis, Normal pulses Skin: No rashes, No breakdown Labs LABS Laboratory Tests Test 02/24/17 17:11 02/24/17 20:45 02/24/17 23:53 02/25/17 06:36 Glucose (Fingerstick) 200mg/dL (70-99) 182mg/dL (70-99) 41mg/dL (70-99) Urine Collection Type Unknown Urine Color Yellow Urine Clarity Clear Urine pH 5.5 Urine Specific [place] >=1.030 Urine Protein 30mg/dL (NEG-TRACE) Urine Glucose (UA) >=1000mg/dL (NEG) Urine Ketones (Stick) Negativemg/dL (NEG) Urine Blood Moderate (NEG) Urine Nitrite Negative (NEG) Urine Bilirubin Negative (NEG) Urine Urobilinogen Dipstick 1.0mg/dL (0.2 mg/dL) Urine Leukocyte Esterase Negative (NEG) Urine RBC 6-10/HPF (0-2) Urine WBC Occ/HPF (0-4) Urine Squamous Epithelial Cells Mod/LPF Urine Bacteria Few/HPF (0-FEW) Urine Hyaline Casts Occasional/HPF Urine Mucus Mod/LPF Test 02/25/17 06:40 02/25/17 07:28 02/25/17 07:42 02/25/17 08:49 White Blood Count 19.6x10^3/uL (4.0-11.0) Red Blood Count 4.76x10^6/uL (3.50-5.40) Hemoglobin 11.1g/dL (12.0-15.5) Hematocrit 37.0% (36.0-47.0) Mean Corpuscular Volume 78fL (79-100) Mean Corpuscular Hemoglobin 23pg (25-35) Mean Corpuscular Hemoglobin Concent 30g/dL (31-37) Red Cell Distribution Width 23.3% (11.5-14.5) Platelet Count 252x10^3/uL (140-400) Neutrophils (%) (Auto) 77% (31-73) Lymphocytes (%) (Auto) 12% (24-48) Monocytes (%) (Auto) 11% (0-9) Eosinophils (%) (Auto) 0% (0-3) Basophils (%) (Auto) 0% (0-3) Neutrophils # (Auto) 15.1x10^3uL (1.8-7.7) Lymphocytes # (Auto) 2.4x10^3/uL (1.0-4.8) Monocytes # (Auto) 2.1x10^3/uL (0.0-1.1) Eosinophils # (Auto) 0.1x10^3/uL (0.0-0.7) Basophils # (Auto) 0.0x10^3/uL (0.0-0.2) Segmented Neutrophils % 73% (35-66) Lymphocytes % 18% (24-48) Monocytes % 9% (0-10) Platelet Estimate Adequate (ADEQUATE) Large Platelets Present Hypochromasia Slight Poikilocytosis Present Anisocytosis Mod Schistocytes Occ Sodium Level 144mmol/L (136-145) Potassium Level 3.0mmol/L (3.5-5.1) Chloride Level 104mmol/L (98-107) Carbon Dioxide Level 33mmol/L (21-32) Anion Gap 7 (6-14) Blood Urea Nitrogen 41mg/dL (7-20) Creatinine 0.8mg/dL (0.6-1.0) Estimated GFR (Cockcroft-Gault) 72.7 Glucose Level 40mg/dL (70-99) Calcium Level 8.9mg/dL (8.5-10.1) Phosphorus Level 3.2mg/dL (2.6-4.7) Magnesium Level 2.1mg/dL (1.8-2.4) Creatine Kinase 111U/L (26-192) Albumin 3.2g/dL (3.4-5.0) Glucose (Fingerstick) 44mg/dL (70-99) 231mg/dL (70-99) 72mg/dL (70-99) Test 02/25/17 08:50 02/25/17 10:19 02/25/17 10:49 02/25/17 11:43 Heparin Anti-Xa Act, Unfractionated 0.35IU/mL (0.30-0.70) Glucose (Fingerstick) 61mg/dL (70-99) 94mg/dL (70-99) 70mg/dL (70-99) Review of Systems Review of Systems General: complains of weakness GI: denies nausea/vomiting/diarrhea/constipation Assessment and Plan Assessmemt and Plan Problems Medical Problems: (1) ARF (acute renal failure) Status: Acute (2) Cardiac failure Status: Acute (3) Hypoxia Status: Acute (4) Respiratory failure Status: Acute Assessment: Respiratory failure -Pulmonary fibrosis -Acute renal failure -DM -CHF -CABG -NSTEMI -CAD -Smoking -Septic shock -HLD -HTN -FREDY -Obesity -Constipation -GERD -Breast excision -Hypothyroidism -Anxiety -Hepatitis A Plan: -Awaiting results of cardiac catheterization -Awaiting results of swallow study -D/C'ed Levemir -Recheck AM labs -Continue PT/OT if appropriate -Subspecialty input appreciated Problems: Comment Review of Relevant I have reviewed the following items trey (where applicable) has been applied. Labs Laboratory Tests Test 02/23/17 14:30 02/23/17 17:46 02/23/17 21:08 02/23/17 21:10 Heparin Anti-Xa Act, Unfractionated 0.53IU/mL (0.30-0.70) 0.48IU/mL (0.30-0.70) Glucose (Fingerstick) 252mg/dL (70-99) 269mg/dL (70-99) Test 02/24/17 00:09 02/24/17 06:20 02/24/17 06:39 02/24/17 07:05 Glucose (Fingerstick) 304mg/dL (70-99) 282mg/dL (70-99) White Blood Count 11.5x10^3/uL (4.0-11.0) Red Blood Count 4.36x10^6/uL (3.50-5.40) Hemoglobin 10.2g/dL (12.0-15.5) Hematocrit 33.7% (36.0-47.0) Mean Corpuscular Volume 77fL (79-100) Mean Corpuscular Hemoglobin 23pg (25-35) Mean Corpuscular Hemoglobin Concent 30g/dL (31-37) Red Cell Distribution Width 23.3% (11.5-14.5) Platelet Count 157x10^3/uL (140-400) Neutrophils (%) (Auto) 88% (31-73) Lymphocytes (%) (Auto) 5% (24-48) Monocytes (%) (Auto) 8% (0-9) Eosinophils (%) (Auto) 0% (0-3) Basophils (%) (Auto) 0% (0-3) Neutrophils # (Auto) 10.1x10^3uL (1.8-7.7) Lymphocytes # (Auto) 0.5x10^3/uL (1.0-4.8) Monocytes # (Auto) 0.9x10^3/uL (0.0-1.1) Eosinophils # (Auto) 0.0x10^3/uL (0.0-0.7) Basophils # (Auto) 0.0x10^3/uL (0.0-0.2) Reticulocyte Count (auto) 2.3% (0.5-2.5) Heparin Anti-Xa Act, Unfractionated 0.51IU/mL (0.30-0.70) Sodium Level 136mmol/L (136-145) Potassium Level 3.7mmol/L (3.5-5.1) Chloride Level 100mmol/L (98-107) Carbon Dioxide Level 30mmol/L (21-32) Anion Gap 6 (6-14) Blood Urea Nitrogen 47mg/dL (7-20) Creatinine 1.1mg/dL (0.6-1.0) Estimated GFR (Cockcroft-Gault) 50.3 Glucose Level 310mg/dL (70-99) Calcium Level 8.6mg/dL (8.5-10.1) Phosphorus Level 3.4mg/dL (2.6-4.7) Magnesium Level 2.1mg/dL (1.8-2.4) Iron Level 45ug/dL (50-170) Total Iron Binding Capacity 359ug/dL (250-450) Iron Saturation 13% (15-34) Ferritin 44ng/mL (8-252) Creatine Kinase 79U/L (26-192) Albumin 3.1g/dL (3.4-5.0) O2 Saturation 95% (92-99) Arterial Blood pH 7.47 (7.35-7.45) Arterial Blood pCO2 at Patient Temp 42mmHg (35-46) Arterial Blood pO2 at Patient Temp 78mmHg (65-108) Arterial Blood HCO3 30mmol/L (21-28) Arterial Blood Base Excess 6mmol/L (-3-3) FiO2 40 Test 02/24/17 10:45 02/24/17 12:04 02/24/17 17:11 02/24/17 20:45 O2 Saturation 94% (92-99) Arterial Blood pH 7.43 (7.35-7.45) Arterial Blood pCO2 at Patient Temp 44mmHg (35-46) Arterial Blood pO2 at Patient Temp 77mmHg (65-108) Arterial Blood HCO3 29mmol/L (21-28) Arterial Blood Base Excess 4mmol/L (-3-3) FiO2 40 Glucose (Fingerstick) 289mg/dL (70-99) 200mg/dL (70-99) 182mg/dL (70-99) Test 02/24/17 23:53 02/25/17 06:36 02/25/17 06:40 02/25/17 07:28 Urine Collection Type Unknown Urine Color Yellow Urine Clarity Clear Urine pH 5.5 Urine Specific [place] >=1.030 Urine Protein 30mg/dL (NEG-TRACE) Urine Glucose (UA) >=1000mg/dL (NEG) Urine Ketones (Stick) Negativemg/dL (NEG) Urine Blood Moderate (NEG) Urine Nitrite Negative (NEG) Urine Bilirubin Negative (NEG) Urine Urobilinogen Dipstick 1.0mg/dL (0.2 mg/dL) Urine Leukocyte Esterase Negative (NEG) Urine RBC 6-10/HPF (0-2) Urine WBC Occ/HPF (0-4) Urine Squamous Epithelial Cells Mod/LPF Urine Bacteria Few/HPF (0-FEW) Urine Hyaline Casts Occasional/HPF Urine Mucus Mod/LPF Glucose (Fingerstick) 41mg/dL (70-99) 44mg/dL (70-99) White Blood Count 19.6x10^3/uL (4.0-11.0) Red Blood Count 4.76x10^6/uL (3.50-5.40) Hemoglobin 11.1g/dL (12.0-15.5) Hematocrit 37.0% (36.0-47.0) Mean Corpuscular Volume 78fL (79-100) Mean Corpuscular Hemoglobin 23pg (25-35) Mean Corpuscular Hemoglobin Concent 30g/dL (31-37) Red Cell Distribution Width 23.3% (11.5-14.5) Platelet Count 252x10^3/uL (140-400) Neutrophils (%) (Auto) 77% (31-73) Lymphocytes (%) (Auto) 12% (24-48) Monocytes (%) (Auto) 11% (0-9) Eosinophils (%) (Auto) 0% (0-3) Basophils (%) (Auto) 0% (0-3) Neutrophils # (Auto) 15.1x10^3uL (1.8-7.7) Lymphocytes # (Auto) 2.4x10^3/uL (1.0-4.8) Monocytes # (Auto) 2.1x10^3/uL (0.0-1.1) Eosinophils # (Auto) 0.1x10^3/uL (0.0-0.7) Basophils # (Auto) 0.0x10^3/uL (0.0-0.2) Segmented Neutrophils % 73% (35-66) Lymphocytes % 18% (24-48) Monocytes % 9% (0-10) Platelet Estimate Adequate (ADEQUATE) Large Platelets Present Hypochromasia Slight Poikilocytosis Present Anisocytosis Mod Schistocytes Occ Sodium Level 144mmol/L (136-145) Potassium Level 3.0mmol/L (3.5-5.1) Chloride Level 104mmol/L (98-107) Carbon Dioxide Level 33mmol/L (21-32) Anion Gap 7 (6-14) Blood Urea Nitrogen 41mg/dL (7-20) Creatinine 0.8mg/dL (0.6-1.0) Estimated GFR (Cockcroft-Gault) 72.7 Glucose Level 40mg/dL (70-99) Calcium Level 8.9mg/dL (8.5-10.1) Phosphorus Level 3.2mg/dL (2.6-4.7) Magnesium Level 2.1mg/dL (1.8-2.4) Creatine Kinase 111U/L (26-192) Albumin 3.2g/dL (3.4-5.0) Test 02/25/17 07:42 02/25/17 08:49 02/25/17 08:50 02/25/17 10:19 Glucose (Fingerstick) 231mg/dL (70-99) 72mg/dL (70-99) 61mg/dL (70-99) Heparin Anti-Xa Act, Unfractionated 0.35IU/mL (0.30-0.70) Test 02/25/17 10:49 02/25/17 11:43 Glucose (Fingerstick) 94mg/dL (70-99) 70mg/dL (70-99) Laboratory Tests Test 02/24/17 17:11 02/24/17 20:45 02/24/17 23:53 02/25/17 06:36 Glucose (Fingerstick) 200mg/dL (70-99) 182mg/dL (70-99) 41mg/dL (70-99) Urine Collection Type Unknown Urine Color Yellow Urine Clarity Clear Urine pH 5.5 Urine Specific [place] >=1.030 Urine Protein 30mg/dL (NEG-TRACE) Urine Glucose (UA) >=1000mg/dL (NEG) Urine Ketones (Stick) Negativemg/dL (NEG) Urine Blood Moderate (NEG) Urine Nitrite Negative (NEG) Urine Bilirubin Negative (NEG) Urine Urobilinogen Dipstick 1.0mg/dL (0.2 mg/dL) Urine Leukocyte Esterase Negative (NEG) Urine RBC 6-10/HPF (0-2) Urine WBC Occ/HPF (0-4) Urine Squamous Epithelial Cells Mod/LPF Urine Bacteria Few/HPF (0-FEW) Urine Hyaline Casts Occasional/HPF Urine Mucus Mod/LPF Test 02/25/17 06:40 02/25/17 07:28 02/25/17 07:42 02/25/17 08:49 White Blood Count 19.6x10^3/uL (4.0-11.0) Red Blood Count 4.76x10^6/uL (3.50-5.40) Hemoglobin 11.1g/dL (12.0-15.5) Hematocrit 37.0% (36.0-47.0) Mean Corpuscular Volume 78fL (79-100) Mean Corpuscular Hemoglobin 23pg (25-35) Mean Corpuscular Hemoglobin Concent 30g/dL (31-37) Red Cell Distribution Width 23.3% (11.5-14.5) Platelet Count 252x10^3/uL (140-400) Neutrophils (%) (Auto) 77% (31-73) Lymphocytes (%) (Auto) 12% (24-48) Monocytes (%) (Auto) 11% (0-9) Eosinophils (%) (Auto) 0% (0-3) Basophils (%) (Auto) 0% (0-3) Neutrophils # (Auto) 15.1x10^3uL (1.8-7.7) Lymphocytes # (Auto) 2.4x10^3/uL (1.0-4.8) Monocytes # (Auto) 2.1x10^3/uL (0.0-1.1) Eosinophils # (Auto) 0.1x10^3/uL (0.0-0.7) Basophils # (Auto) 0.0x10^3/uL (0.0-0.2) Segmented Neutrophils % 73% (35-66) Lymphocytes % 18% (24-48) Monocytes % 9% (0-10) Platelet Estimate Adequate (ADEQUATE) Large Platelets Present Hypochromasia Slight Poikilocytosis Present Anisocytosis Mod Schistocytes Occ Sodium Level 144mmol/L (136-145) Potassium Level 3.0mmol/L (3.5-5.1) Chloride Level 104mmol/L (98-107) Carbon Dioxide Level 33mmol/L (21-32) Anion Gap 7 (6-14) Blood Urea Nitrogen 41mg/dL (7-20) Creatinine 0.8mg/dL (0.6-1.0) Estimated GFR (Cockcroft-Gault) 72.7 Glucose Level 40mg/dL (70-99) Calcium Level 8.9mg/dL (8.5-10.1) Phosphorus Level 3.2mg/dL (2.6-4.7) Magnesium Level 2.1mg/dL (1.8-2.4) Creatine Kinase 111U/L (26-192) Albumin 3.2g/dL (3.4-5.0) Glucose (Fingerstick) 44mg/dL (70-99) 231mg/dL (70-99) 72mg/dL (70-99) Test 02/25/17 08:50 02/25/17 10:19 02/25/17 10:49 02/25/17 11:43 Heparin Anti-Xa Act, Unfractionated 0.35IU/mL (0.30-0.70) Glucose (Fingerstick) 61mg/dL (70-99) 94mg/dL (70-99) 70mg/dL (70-99) Microbiology 02/18/17 Urine Culture - Final, Complete 02/18/17 Urine Culture Result 1 (NORBERTO) - Final, Complete Medications Current Medications Sodium Polystyrene Sulfonate (Kayexalate) 30 gm 1X ONCE PO Last administered on 02/17/17 03:54; Start 02/17/17 at 02:45; Stop 02/17/17 at 02:46; Status DC Ondansetron HCl (Zofran) 4 mg PRN Q6HRS PRN IV NAUSEA/VOMITING; Start 02/17/17 at 02:00 Pantoprazole Sodium (Protonix Vial) 40 mg TID IVP Last administered on 08:56; Start 02/17/17 at 09:00; Stop 02/17/17 at 13:17; Status DC Acetaminophen 650 mg 650 mg PRN Q6HRS PRN PO FEVER; Start 02/17/17 at 02:00 Midazolam HCl 100 ml @ 0 mls/hr CONT PRN IV SEE I/O RECORD Last administered on 02/17/17 20:34; Start 02/17/17 at 02:30 Levothyroxine Sodium 37.5 mcg/ Sodium Chloride 5 ml @ 100 mls/hr DAILY IVP Last administered on 02/25/17 08:43; Start 02/17/17 at 09:00 Sodium Chloride 1,000 ml @ 100 mls/hr 1X ONCE IV Last administered on 04:25; Start 02/17/17 at 04:30; Stop 02/17/17 at 11:25; Status DC Sodium Chloride (Iv Sodium Chloride 0.9% 1000ml Bag) 1,000 ml @ 100 mls/hr 1X ONCE IV Last administered on 02/17/17 04:25; Start 02/17/17 at 04:30; Stop at 09:15; Status DC Pneumococcal Polyvalent Vaccine (Do NOT chart on this placeholder) 1 each 1X ONCE MC ; Start 02/17/17 at 06:00; Stop 02/17/17 at 06:01; Status UNV Pneumococcal Polyvalent Vaccine 0.5 ml 0.5 ml ONCE ONCE VAX IM ; Start 02/17/17 at 09:00; Stop 02/17/17 at 09:01; Status DC Norepinephrine Bitartrate 250 ml @ 0 mls/hr CONT PRN IV SEE I/O RECORD Last administered on 02/18/17 11:15; Start 02/17/17 at 06:15 Sodium Chloride 1,000 ml @ 1,000 mls/hr 1X ONCE IV Last administered on 08:56; Start 02/17/17 at 08:15; Stop 02/17/17 at 09:14; Status DC Piperacillin Sod/ Tazobactam Sod 2.25 gm/Sodium Chloride 50 ml @ 100 mls/hr Q8HRS IV Last administered on 02/24/17 06:33; Start 02/17/17 at 08:45; Stop 02/24/17 at 09:48; Status DC Magnesium Sulfate/ Dextrose (Magnesium Sulfate PREMIX 2GM) 50 ml @ 25 mls/hr 1X ONCE IV Last administered on 02/17/17 09:30; Start 02/17/17 at 09:00; Stop 02/17/17 at 10:59; Status DC Fentanyl Citrate 50 mcg 50 mcg PRN Q2HR PRN IV PAIN Last administered on 21:47; Start 02/17/17 at 09:00 Sodium Chloride (Iv Sodium Chloride 0.9% 1000ml Bag) 1,000 ml @ 1,000 mls/hr 1X ONCE IV Last administered on 02/17/17 08:57; Start 02/17/17 at 09:00; Stop 02/17/17 at 09:59; Status DC Heparin Sodium (Porcine) (Heparin Sodium) 10,000 unit STK-MED ONCE .ROUTE ; Start 02/17/17 at 09:23; Stop 02/17/17 at 09:24; Status DC Lidocaine/Sodium Bicarbonate 20 ml 20 ml STK-MED ONCE IJ ; Start 02/17/17 at 09: 23; Stop 02/17/17 at 09:24; Status DC Heparin Sodium/ Sodium Chloride 500 ml @ As Directed STK-MED ONCE .ROUTE ; Start 02/17/17 at 09:23; Stop 02/17/17 at 09:24; Status DC Lidocaine/Sodium Bicarbonate (Buffered Lidocaine 1%) 3 ml 1X ONCE IJ ; Start at 09:30; Stop 02/17/17 at 09:35; Status DC Heparin Sodium/ Sodium Chloride 60 unit 1X ONCE IV ; Start 02/17/17 at 09:30; Stop 02/17/17 at 09:35; Status DC Heparin Sodium (Porcine) (Heparin Sodium) 2,500 unit 1X ONCE INT CAT ; Start at 09:30; Stop 02/17/17 at 09:35; Status DC Sodium Bicarbonate 50 meq STK-MED ONCE .ROUTE ; Start 02/17/17 at 09:42; Stop at 09:43; Status DC Sodium Bicarbonate 100 meq 100 meq 1X ONCE IV Last administered on 02/17/17 09:51; Start 02/17/17 at 09:45; Stop 02/17/17 at 09:48; Status DC Sodium Bicarbonate 150 meq/Dextrose 1,150 ml @ 150 mls/hr Q7H40M IV Last administered on 02/17/17 10:34; Start 02/17/17 at 09:45; Stop 02/17/17 at 18:05 ; Status DC Vasopressin/ Dextrose (Vasostrict) 102 ml @ 6 mls/hr ONCE ONCE IV Last administered on 02/17/17 10:34; Start 02/17/17 at 10:00; Stop 02/18/17 at 02:59 ; Status DC Hydrocortisone Sodium Succinate (Solu-Cortef) 100 mg Q8HRS IV ; Start 02/17/17 at 10:30; Stop 02/17/17 at 10:30; Status DC Vancomycin HCl (Vanco Per Pharmacy) 1 each PRN DAILY PRN MC SEE COMMENTS Last administered on 02/17/17 10:28; Start 02/17/17 at 10:15; Stop 02/18/17 at 12:50 ; Status DC Lidocaine/Sodium Bicarbonate (Buffered Lidocaine 1%) 3 ml 1X ONCE IJ ; Start at 10:15; Stop 02/17/17 at 10:16; Status DC Heparin Sodium/ Sodium Chloride 60 unit 1X ONCE IV ; Start 02/17/17 at 10:15; Stop 02/17/17 at 10:16; Status DC Heparin Sodium (Porcine) (Heparin Sodium) 2,500 unit 1X ONCE INT CAT ; Start at 10:15; Stop 02/17/17 at 10:16; Status DC Hydrocortisone Sodium Succinate 100 mg 100 mg ONCE ONCE IV Last administered on 02/17/17 10:36; Start 02/17/17 at 10:30; Stop 02/17/17 at 10:31; Status DC Vasopressin 40 unit/Dextrose 102 ml @ 6 mls/hr CONT PRN IV SEE I/O RECORD Last administered on 02/18/17 13:53; Start 02/17/17 at 10:15; Stop 02/23/17 at 07:49 ; Status DC Vancomycin HCl/ Sodium Chloride (Iv Sodium Chloride 0.9% 500ml Bag) 500 ml @ 250 mls/hr ONCE ONCE IV Last administered on 02/17/17 13:53; Start 02/17/17 at 10:30; Stop 02/17/17 at 12:29; Status DC Hydrocortisone Sodium Succinate (Solu-Cortef) 100 mg Q8HRS IV Last administered on 02/23/17 06:07; Start 02/17/17 at 14:00; Stop 02/23/17 at 07:49 ; Status DC Vancomycin HCl 1 each 1X ONCE MC ; Start 02/19/17 at 10:30; Stop 02/19/17 at 10 :30; Status DC Chlorhexidine Gluconate 15 ml 15 ml BID SWSP Last administered on 02/24/17 20: 54; Start 02/17/17 at 21:00; Stop 02/25/17 at 08:05; Status DC Sodium Chloride 1,000 ml @ 100 mls/hr Q10H IV Last administered on 02/17/17 13:53; Start 02/17/17 at 12:15; Stop 02/17/17 at 18:58; Status DC Sodium Chloride (Iv Sodium Chloride 0.9% 1000ml Bag) 1,000 ml @ 1,000 mls/hr Q1H PRN IV hypotension; Start 02/17/17 at 12:28; Stop 02/17/17 at 18:27; Status DC Sodium Chloride (Normal Saline Flush) 10 ml 1X PRN PRN IV AP catheter pack; Start 02/17/17 at 12:30; Stop 02/18/17 at 12:29; Status DC Sodium Chloride (Normal Saline Flush) 10 ml 1X PRN PRN IV [employer] catheter pack; Start 02/17/17 at 12:30; Stop 02/18/17 at 12:29; Status DC Info (PHARMACY MONITORING -- do not chart) 1 each PRN DAILY PRN MC SEE COMMENTS ; Start 02/17/17 at 12:30; Stop 02/24/17 at 09:43; Status DC Info (PHARMACY MONITORING -- do not chart) 1 each PRN DAILY PRN MC SEE COMMENTS ; Start 02/17/17 at 12:30; Status UNV Pantoprazole Sodium 40 mg 40 mg DAILY IVP Last administered on 02/25/17 08:43; Start 02/18/17 at 09:00 Albumin Human 50 ml @ 50 mls/hr 1X ONCE IV Last administered on 02/17/17 18: 58; Start 02/17/17 at 18:45; Stop 02/17/17 at 19:44; Status DC Sodium Chloride 1,000 ml @ 125 mls/hr 1X ONCE IV ; Start 02/17/17 at 18:45; Stop 02/18/17 at 09:15; Status DC Sodium Chloride 1,000 ml @ 125 mls/hr Q8H IV Last administered on 02/18/17 05 :42; Start 02/17/17 at 19:00; Stop 02/18/17 at 09:15; Status DC Sodium Chloride 1,000 ml @ 1,000 mls/hr Q1H PRN IV hypotension; Start 02/18/17 at 07:47; Stop 02/18/17 at 13:46; Status DC Albumin Human (Albuminar) 200 ml @ 200 mls/hr 1X PRN PRN IV Hypotension; Start 02/18/17 at 08:00; Stop 02/18/17 at 13:59; Status DC Acetaminophen (Tylenol) 500 mg 1X PRN PRN PO MILD PAIN / TEMP; Start 02/18/17 at 08:00; Stop 02/19/17 at 07:59; Status DC Diphenhydramine HCl (Benadryl) 25 mg 1X PRN PRN IV ITCHING; Start 02/18/17 at 08:00; Stop 02/19/17 at 07:59; Status DC Diphenhydramine HCl (Benadryl) 25 mg 1X PRN PRN IV ITCHING; Start 02/18/17 at 08:00; Stop 02/19/17 at 07:59; Status DC Labetalol HCl (Normodyne) 10 mg PRN Q1HR PRN IVP SBP > 180; Start 02/18/17 at 08:00; Stop 02/19/17 at 07:59; Status DC Clonidine HCl 0.1 mg 0.1 mg 1X PRN PRN PO SBP > 180; Start 02/18/17 at 08:00; Stop 02/19/17 at 07:59; Status DC Sodium Chloride (Iv Sodium Chloride 0.9% 1000ml Bag) 1,000 ml @ 400 mls/hr Q2H30M PRN IV PATENCY; Start 02/18/17 at 07:47; Stop 02/18/17 at 19:46; Status DC Info 1 each 1 each PRN DAILY PRN MC SEE COMMENTS; Start 02/18/17 at 08:00; Status UNV Magnesium Sulfate/ Dextrose 50 ml @ 25 mls/hr PRN DAILY PRN IV for Mag < 1.7 on am labs Last administered on 02/18/17 11:16; Start 02/18/17 at 08:00 Propofol 100 ml @ As Directed STK-MED ONCE IV ; Start 02/18/17 at 11:47; Stop 02/18/17 at 11:48; Status DC Propofol (Diprivan) 100 ml @ 0 mls/hr CONT PRN IV SEE I/O RECORD Last administered on 02/24/17 06:49; Start 02/18/17 at 12:45; Stop 02/25/17 at 08:05; Status DC Insulin Aspart (Novolog) 0-7 UNITS Q6HRS SQ Last administered on 02/24/17 12:08 ; Start 02/19/17 at 00:00 Dextrose 12.5 gm 12.5 gm PRN Q15MIN PRN IV SEE COMMENTS Last administered on 11:44; Start 02/18/17 at 21:00 Magnesium Sulfate/ Dextrose 50 ml @ 25 mls/hr PRN DAILY PRN IV for Mag < 1.7 on am labs; Start 02/19/17 at 07:45; Stop 02/19/17 at 10:20; Status DC Potassium Chloride 50 ml @ 50 mls/hr PRN Q6HRS PRN IV For K < 3.7; Start at 07:45 Potassium Chloride 50 ml @ 50 mls/hr PRN Q2HR PRN IV total of 40mEq for K < 3.5 Last administered on 02/22/17 12:11; Start 02/19/17 at 07:45 Calcium Chloride 2000 mg/Sodium Chloride 120 ml @ 240 mls/hr 1X ONCE IV ; Start 02/19/17 at 08:00; Stop 02/19/17 at 08:29; Status DC Albumin Human (Albuminar) 100 ml @ 100 mls/hr TID IV Last administered on 02/20 20:51; Start 02/19/17 at 09:00; Stop 02/20/17 at 21:59; Status DC Bupropion HCl (Wellbutrin) 75 mg BID NG Last administered on 02/24/17 08:32; Start 02/19/17 at 12:00 Citalopram Hydrobromide 20 mg 20 mg DAILY NG Last administered on 02/24/17 08: 32; Start 02/19/17 at 12:00 Heparin Sodium/ Dextrose 500 ml @ 20 mls/hr CONT PRN IV SEE I/O RECORD Last administered on 02/23/17 21:22; Start 02/19/17 at 13:15 Info 1 each 1 each PRN DAILY PRN MC SEE COMMENTS Last administered on 02/24/17 09:53; Start 02/20/17 at 07:45 Potassium Chloride (KCl Premix 20meq) 50 ml @ 50 mls/hr Q1HR IV Last administered on 02/20/17 09:48; Start 02/20/17 at 09:00; Stop 02/20/17 at 10:59 ; Status DC Metoprolol Tartrate (Lopressor) 2.5 mg 1X ONCE IVP Last administered on 14:19; Start 02/20/17 at 14:00; Stop 02/20/17 at 14:01; Status DC Metoprolol Tartrate (Lopressor) 2.5 mg Q6HRS IVP Last administered on 02/24/17 12:04; Start 02/20/17 at 14:00; Stop 02/24/17 at 13:45; Status DC Albuterol/ Ipratropium (Duoneb) 3 ml RTQID NEB Last administered on 02/25/17 11 :27; Start 02/21/17 at 12:00 Insulin Detemir (Levemir) 10 units QHS SQ Last administered on 02/21/17 21:03 ; Start 02/21/17 at 21:00; Stop 02/22/17 at 12:39; Status DC Insulin Detemir (Levemir) 30 units QHS SQ Last administered on 02/24/17 20:53; Start 02/22/17 at 21:00 Aspirin (Ecotrin) 81 mg [id number] PO ; Start 02/23/17 at 08:00; Stop 02/23/17 at 08:00; Status DC Hydrocortisone Sodium Succinate (Solu-Cortef) 50 mg Q8HRS IV Last administered on 02/24/17 06:33; Start 02/23/17 at 14:00; Stop 02/24/17 at 10:30; Status DC Aspirin 81 mg 81 mg [id number] PO Last administered on 02/24/17 08:32; Start at 08:00 Nitroglycerin/ Dextrose 250 ml @ 0 mls/hr 1X ONCE IV ; Start 02/23/17 at 12:30 ; Stop 02/23/17 at 12:31; Status DC Piperacillin Sod/ Tazobactam Sod/ Sodium Chloride (Zosyn/Iv Sodium Chloride 0.9 % 50ml) 50 ml @ 100 mls/hr Q6HRS IV Last administered on 02/25/17 06:21; Start 02/24/17 at 12:00; Stop 02/25/17 at 07:47; Status DC Hydrocortisone Sodium Succinate (Solu-Cortef) 25 mg BID IV Last administered on 02/25/17 08:43; Start 02/25/17 at 09:00 Metoprolol Tartrate (Lopressor) 5 mg Q6HRS IVP Last administered on 02/25/17 06 :16; Start 02/24/17 at 18:00 Metoprolol Tartrate 2.5 mg 2.5 mg 1X ONCE IVP Last administered on 02/24/17 14 :49; Start 02/24/17 at 14:00; Stop 02/24/17 at 14:01; Status DC Sodium Chloride (Iv Sodium Chloride 0.9% 1000ml Bag) 1,000 ml @ 75 mls/hr [id number] IV Last administered on 02/25/17 08:42; Start 02/24/17 at 14:00 Iohexol 100 ml 100 ml STK-MED ONCE .ROUTE ; Start 02/25/17 at 11:38; Stop at 11:39; Status DC Heparin Sodium/ Sodium Chloride 500 ml @ As Directed STK-MED ONCE .ROUTE ; Start 02/25/17 at 11:38; Stop 02/25/17 at 11:39; Status DC Lidocaine HCl 20 ml STK-MED ONCE .ROUTE ; Start 02/25/17 at 11:38; Stop 02/25/17 at 11:39; Status DC Fentanyl Citrate (Fentanyl 2ml Vial) 100 mcg STK-MED ONCE .ROUTE ; Start at 12:01; Stop 02/25/17 at 12:02; Status DC Midazolam HCl (Versed) 2 mg STK-MED ONCE .ROUTE ; Start 02/25/17 at 12:01; Stop 02/25/17 at 12:02; Status DC Active Scripts Active [place] 7.5-325 Tablet (Acetaminophen/Hydrocodone Bitart) 1 Each Tablet 1 Tab PO PRN Q6HRS PRN Reported Requip (Ropinirole Hcl) 1 Mg Tablet 4 Mg PO DAILY Aspir 81 (Aspirin) 81 Mg Tablet.dr 81 Mg PO DAILY Wellbutrin Sr (Bupropion Hcl) 150 Mg Tablet.er 150 Mg PO DAILY Toprol Xl (Metoprolol Succinate) 25 Mg Tab.er.24h 12 Mg PO DAILY Lasix (Furosemide) 40 Mg Tablet 40 Mg PO DAILY Pravastatin Sodium 40 Mg Tablet 40 Mg PO DAILY Pantoprazole Sodium 40 Mg Tablet.dr 40 Mg PO DAILY Doxycycline Hyclate 100 Mg Capsule 1 Cap PO BID Hydrocodone-Apap 5-325 (Hydrocodone Bit/Acetaminophen) 1 Each Tablet 1-2 Tab PO Q4-6HRS PRN Levothyroxine Sodium 75 Mcg Tablet 1 Tab PO DAILY Citalopram Hbr (Citalopram Hydrobromide) 20 Mg Tablet 20 Mg PO DAILY Losartan Potassium 50 Mg Tablet 50 Mg PO DAILY Metformin Hcl 500 Mg Tablet 1 Tab PO TIDWMEALS Vitals/I & O Vital Sign - Last 24 Hours 02/24/17 02/24/17 02/24/17 02/24/17 13:00 14:00 14:49 15:00 Pulse 82 84 88 83 Resp 30 24 32 B/P 155/96 165/96 169/106 176/106 Pulse Ox 92 94 94 O2 Delivery Nasal Cannula Nasal Cannula Nasal Cannula O2 Flow Rate 4.0 4.0 4.0 02/24/17 02/24/17 02/24/17 02/24/17 16:00 16:00 16:06 17:00 Temp 98.0 98.0 Pulse 84 82 Resp 28 B/P 157/95 153/87 Pulse Ox 91 96 93 O2 Delivery Nasal Cannula Nasal Cannula Nasal Cannula Nasal Cannula O2 Flow Rate 4.0 4.0 5.0 4.0 02/24/17 02/24/17 02/24/17 02/24/17 18:00 18:30 19:00 19:42 Temp 98.0 98.0 Pulse 79 80 84 Resp 26 B/P 158/96 163/105 153/65 Pulse Ox 97 95 94 O2 Delivery Nasal Cannula Nasal Cannula Nasal Cannula O2 Flow Rate 4.0 4.0 5.0 02/24/17 02/24/17 02/24/17 02/24/17 20:01 20:05 21:00 21:47 Temp 98.3 98.3 98.3 98.3 Pulse 75 80 Resp 25 B/P 161/95 163/104 Pulse Ox 96 92 94 O2 Delivery Nasal Cannula Nasal Cannula Nasal Cannula Nasal Cannula O2 Flow Rate 4.0 4.0 4.0 5.0 02/24/17 02/24/17 02/24/17 02/24/17 22:00 22:17 23:00 23:58 Temp 97.6 97.6 Pulse 80 75 75 Resp 16 B/P 140/94 144/90 144/90 Pulse Ox 94 94 95 O2 Delivery Nasal Cannula Nasal Cannula Nasal Cannula O2 Flow Rate 5.0 5.0 5.0 02/24/17 02/25/17 02/25/17 02/25/17 23:59 00:00 01:00 02:00 Temp 97.6 98.0 97.8 97.6 98.0 97.8 Pulse 68 72 86 Resp 27 B/P 119/79 129/91 167/101 Pulse Ox 95 95 92 O2 Delivery Nasal Cannula Nasal Cannula Nasal Cannula Nasal Cannula O2 Flow Rate 5.0 5.0 5.0 5.0 02/25/17 02/25/17 02/25/17 02/25/17 03:00 04:00 04:00 05:00 Temp 98.0 98.0 98.2 98.0 98.0 98.2 Pulse 78 74 72 Resp 19 B/P 163/99 142/84 131/80 Pulse Ox 93 93 94 O2 Delivery Nasal Cannula Nasal Cannula Nasal Cannula Nasal Cannula O2 Flow Rate 5.0 5.0 5.0 5.0 02/25/17 02/25/17 02/25/17 02/25/17 06:00 06:16 08:00 08:00 Temp 98.2 98.3 98.2 98.3 Pulse 68 72 68 Resp 21 B/P 167/91 131/80 135/86 Pulse Ox 92 95 O2 Delivery Nasal Cannula Nasal Cannula Nasal Cannula O2 Flow Rate 5.0 4.0 4.0 02/25/17 02/25/17 02/25/17 02/25/17 08:14 10:00 11:00 12:00 Pulse 80 79 Resp 29 26 B/P 165/98 184/109 Pulse Ox 95 92 99 O2 Delivery Nasal Cannula Nasal Cannula Nasal Cannula Nasal Cannula O2 Flow Rate 5.0 4.0 4.0 4.0 Intake and Output 02/24/17 02/24/17 02/25/17 15:00 23:00 07:00 Intake Total 105 ml 103.55 ml 999 ml Output Total 0 ml 650 ml 850 ml Balance 105 ml -546.45 ml 149 ml Nutrition Consultation Dietary Evaluation: Comments: Pt extubated 02/24 and TF stopped AEROGRAPHER to evaluate likely tomorrow Would consider supplemental PPN until diet advanced and intake consistently >50% at meals Rec. MVI and 500mg vit c BID to aid wound healing when taking PO meds Expected Outcomes/Goals: diet advancement to meet >75% est nutr needs Malnutrition Findings: Reduced Transcription Strength: N/A Malnutrition related to morbid: No Weight Status: Obese OLIVIA MIR III DO February 25, 2017 12:35
--- NOTE | 2017-02-25 12:40 | PDOC ---
Objective: Vital Signs: Vital Signs Date Time Temp Pulse Resp B/P Pulse Ox O2 Delivery O2 Flow Rate FiO2 02/25/17 12:00 Nasal Cannula 4.0 02/25/17 11:00 79 26 184/109 99 02/25/17 08:00 98.3 98.3 Labs: Laboratory Tests Test 02/24/17 17:11 02/24/17 20:45 02/24/17 23:53 02/25/17 06:36 Glucose (Fingerstick) 200mg/dL 182mg/dL 41mg/dL Urine Collection Type Unknown Urine Color Yellow Urine Clarity Clear Urine pH 5.5 Urine Specific [place] >=1.030 Urine Protein 30mg/dL Urine Glucose (UA) >=1000mg/dL Urine Ketones (Stick) Negativemg/dL Urine Blood Moderate Urine Nitrite Negative Urine Bilirubin Negative Urine Urobilinogen Dipstick 1.0mg/dL Urine Leukocyte Esterase Negative Urine RBC 6-10/HPF Urine WBC Occ/HPF Urine Squamous Epithelial Cells Mod/LPF Urine Bacteria Few/HPF Urine Hyaline Casts Occasional/HPF Urine Mucus Mod/LPF Test 02/25/17 06:40 02/25/17 07:28 02/25/17 07:42 02/25/17 08:49 White Blood Count 19.6x10^3/uL Red Blood Count 4.76x10^6/uL Hemoglobin 11.1g/dL Hematocrit 37.0% Mean Corpuscular Volume 78fL Mean Corpuscular Hemoglobin 23pg Mean Corpuscular Hemoglobin Concent 30g/dL Red Cell Distribution Width 23.3% Platelet Count 252x10^3/uL Neutrophils (%) (Auto) 77% Lymphocytes (%) (Auto) 12% Monocytes (%) (Auto) 11% Eosinophils (%) (Auto) 0% Basophils (%) (Auto) 0% Neutrophils # (Auto) 15.1x10^3uL Lymphocytes # (Auto) 2.4x10^3/uL Monocytes # (Auto) 2.1x10^3/uL Eosinophils # (Auto) 0.1x10^3/uL Basophils # (Auto) 0.0x10^3/uL Segmented Neutrophils % 73% Lymphocytes % 18% Monocytes % 9% Platelet Estimate Adequate Large Platelets Present Hypochromasia Slight Poikilocytosis Present Anisocytosis Mod Schistocytes Occ Sodium Level 144mmol/L Potassium Level 3.0mmol/L Chloride Level 104mmol/L Carbon Dioxide Level 33mmol/L Anion Gap 7 Blood Urea Nitrogen 41mg/dL Creatinine 0.8mg/dL Estimated GFR (Cockcroft-Gault) 72.7 Glucose Level 40mg/dL Calcium Level 8.9mg/dL Phosphorus Level 3.2mg/dL Magnesium Level 2.1mg/dL Creatine Kinase 111U/L Albumin 3.2g/dL Glucose (Fingerstick) 44mg/dL 231mg/dL 72mg/dL Test 02/25/17 08:50 02/25/17 10:19 02/25/17 10:49 02/25/17 11:43 Heparin Anti-Xa Act, Unfractionated 0.35IU/mL Glucose (Fingerstick) 61mg/dL 94mg/dL 70mg/dL PE: no exam A/P: NSTEMI, resp failure -extubated 02/24/17 -cardiac cath today Gastroparesis -EGD and colonoscopy 02/14/17: chronic gastritis, hiatal hernia, sigmoid diverticulum, internal hemorrhoids -on IV PPI, previous adverse reaction to Reglan, h/o DM -- Out for cardiac cath. Will follow. JF CENTENO February 25, 2017 12:40
[2017-02-25] MEDS ORDERED: IV 1/2 NORMAL SALINE 1,000 ML IV SCH (14:34)
[2017-02-25] MEDS ORDERED: NITROGLYCERIN SUBLINGUAL 0.4 MG BOTTLE OF 25. SL PRN (14:45)
--- NOTE | 2017-02-25 15:41 | CARD ---
APPROVED REPORT Procedure(s) performed: Left heart catheterization, selective coronary angiography, selective angiogr aphy of the bypass grafts and left ventriculography INDICATION The indication(s) include : non-STEMI . PROCEDURE NARRATIVE After explaining the risks, benefits and alternative options, informed consent was obtained from robyn ent. Patient was brought to the cardiac Scanning Coordinator and her right groin was prepped and draped in the us ual fashion. 20 mL of 2% lidocaine was infiltrated into the skin and subcutaneous tissues for local a nesthesia. Arterial access was obtained in the right common femoral artery and 6 Brazilian sheath was in serted. 6 Brazilian JL4 and 6 Brazilian JR4 catheters were used to perform selective angiography of the lef t and right coronary arteries. The 6 Brazilian JR4 catheter was then used to perform selective angiograp hy of the radial artery graft to the posterior descending branch and also the MCCLAIN/FIGUEROA 'T' graft to LAD/LCx. Finally, 6 Brazilian pigtail catheter was used to perform left ventricular free. Patient tolera osman the procedure well. Hemostasis was achieved using Angio-Seal. There were no immediate complicatio ns. FINDINGS 1. Hemodynamics: Left ventricle end diastolic pressure 19 mmHg. No pullback gradient across the aor tic valve. 2. Left ventriculography: Normal left ventricle systolic function with ejection fraction estimated at 60%. No significant mitral regurgitation seen. 3. Coronary and bypass graft angiography: a. The left main coronary artery arose from the left sinus of Valsalva, gave rise to the left anteri or descending and left circumflex arteries and showed a calcified 95% stenosis involving the distal s egment. b. The left anterior descending artery showed 60% stenosis in the ostial segment. c. The left circumflex artery showed 70% stenosis in the ostial segment. d. The right coronary artery showed 90% stenosis involving the ostial segment. The right ventricle m arginal branch showed 80% proximal segment stenosis. e. The radial artery graft to the posterior descending branch of right Maude artery was widely pat ent. f. The left internal mammary artery graft to the left anterior descending artery and the right inter nal mammary artery 'T' graft extending from MCCLAIN to OM/LCx was widely patent. Distal to the anastomos is, the apache left anterior descending artery showed moderate diffuse disease. Conclusion 1. Coronary artery disease s/p coronary artery bypass surgery as stated above with patent radial art fidel graft to PDA/RCA and patent MCCLAIN/FIGUEROA 'T' graft to LAD/LCx. 2. Normal left ventricle systolic function with ejection fraction estimated at 60%. Recommendations Medical Therapy
[2017-02-25] MEDS: IV DEXTROSE 5% - 0.9 % NACL 1,000 ML IV SCH (21:59)
[2017-02-25] MEDS: buPROPion 75 MG TABLET. PO SCH (22:25)
[2017-02-25] MEDS ORDERED: LABETALOL 20 MG/4 ML DISP.SYRIN. IVP ONE (23:30)
[2017-02-26 03:00] VITALS: BP 187/96
[2017-02-26] MEDS: METOPROLOL TARTRATE 5 MG/5 ML VIAL. IVP SCH ×3 (06:00→18:14)
[2017-02-26] MEDS: INSULIN ASPART 300 UNITS/3 ML INSULN.PEN SQ SCH ×4 (06:00→17:38)
[2017-02-26 07:00] VITALS: BP 185/110
[2017-02-26] MEDS: IPRATRPIUM/ALBUTEROL 0.5/2.5MG 3 ML NEBU. NEB SCH ×4 (07:43→19:59)
[2017-02-26] MEDS ORDERED: CARVEDILOL 6.25 MG TABLET. PO SCH (08:00)
[2017-02-26] MEDS: ASPIRIN CHEWABLE 81 MG TABLET. PO SCH (08:00)
[2017-02-26] MEDS: IV DEXTROSE 5% - 0.9 % NACL 1,000 ML IV SCH (08:50)
[2017-02-26] MEDS: buPROPion 75 MG TABLET. PO SCH ×2 (09:00→21:00)
[2017-02-26] MEDS: CITALOPRAM 20 MG TABLET. NG SCH (09:00)
[2017-02-26] MEDS ORDERED: buPROPion 75 MG TABLET. PO SCH (09:00)
--- NOTE | 2017-02-26 09:19 | PDOC ---
Infectious Disease Note Subjective Subjective looking and feeling good ROS ROS no n/v/d/pain Vital Sign Vital Signs Vital Signs Date Time Temp Pulse Resp B/P Pulse Ox O2 Delivery O2 Flow Rate FiO2 02/26/17 08:28 Nasal Cannula 5.0 02/26/17 07:55 80 185/110 02/26/17 07:44 92 02/26/17 07:00 97.7 24 97.7 Physical Exam PHYSICAL EXAM GENERAL: NAD, Alert HEENT: PERRL, OC/OP NECK: Supple, no JVD, no LN LUNGS: Clear HEART: S1S2, no gallop, no murmur ABD: Soft, NT, no organomegaly, no rebound EXT: No edema, no cyanosis PROJECT ANALYST: Alert, oriented x 3, no focal neurologic deficit SKIN: No rash IV: ok Labs Lab Laboratory Tests Test 02/25/17 10:19 02/25/17 10:49 02/25/17 11:43 02/25/17 17:01 Glucose (Fingerstick) 61mg/dL (70-99) 94mg/dL (70-99) 70mg/dL (70-99) 75mg/dL (70-99) Test 02/25/17 18:43 02/25/17 20:55 02/26/17 06:30 02/26/17 07:37 Glucose (Fingerstick) 65mg/dL (70-99) 77mg/dL (70-99) 147mg/dL (70-99) Creatine Kinase 136U/L (26-192) Objective Assessment ? sepsis vs SIRS. Received Sol[facility]-Medrol in [facility]. NSTEMI Ecoli in urine 02/17 ? colonization - Res to Pip but she is responding so likely sens to Zosyn Hyperglycemia ? Aspiration - intubated- h/o Pulm fibrosis Lactic acidosis - improved BRADLEY - dehydration. DM and gastroparesis Plan Plan of Care off antibiotics Monitor labs Supportive will sign off, call if questions ELIAS AMEZQUITA MD February 26, 2017 09:19
[2017-02-26 10:43] LABS: BASO % 0 % (0-3); EOS % 0 % (0-3); HEMATOCRIT 35.5 % (36.0-47.0); HEMOGLOBIN 10.9 g/dL (12.0-15.5); LYMPH # 1.2 x10^3/uL (1.0-4.8); LYMPH % 9 % (24-48); MEAN CORPUSCULAR HEMOGLOBIN 24 pg (25-35); MEAN CORPUSCULAR HGB CONC 31 g/dL (31-37); MEAN CORPUSCULAR VOLUME 77 fL (79-100); MONO % 11 % (0-9); NEUT % 80 % (31-73); PLATELET COUNT 221 x10^3/uL (140-400); RED BLOOD COUNT 4.62 x10^6/uL (3.50-5.40); RED CELL DISTRIBUTION WIDTH 23.3 % (11.5-14.5)
--- NOTE | 2017-02-26 10:45 | PDOC ---
CARDIO Progress Notes Date and Time Date of Service 02/26/2017 Time of Evaluation 1020 Subjective Subjective: No Chest Pain, No shortness of breath, No Palpitations, No Dizziness Vitals Vitals Vital Signs Date Time Temp Pulse Resp B/P Pulse Ox O2 Delivery O2 Flow Rate FiO2 02/26/17 08:28 Nasal Cannula 5.0 02/26/17 07:55 80 185/110 02/26/17 07:44 92 02/26/17 07:00 97.7 24 97.7 Weight Weight [ ] Input and Output Intake and Output Intake and Output 02/26/17 07:00 Intake Total 240 ml Output Total 400 ml Balance -160 ml Intake Oral 240 ml Output Urine Total 400 ml Laboratory Labs Laboratory Tests Test 02/25/17 10:49 02/25/17 11:43 02/25/17 17:01 02/25/17 18:43 Glucose (Fingerstick) 94mg/dL (70-99) 70mg/dL (70-99) 75mg/dL (70-99) 65mg/dL (70-99) Test 02/25/17 20:55 02/26/17 06:30 02/26/17 07:37 Glucose (Fingerstick) 77mg/dL (70-99) 147mg/dL (70-99) Creatine Kinase 136U/L (26-192) Microbiology Micro Microbiology 02/18/17 Urine Culture - Final, Complete 02/18/17 Urine Culture Result 1 (NORBERTO) - Final, Complete Physical Exam HEENT: Neck Supple W Full Motion Chest: Symmetric LUNGS: Other (dminished with faint crackles) Heart: S1S2, RRR (SR no ectopies), other (distant heart tones ) Abdomen: Soft N/T Extremities: Other (2+ bilateral LE pitting edema) Neurology: alert, oriented, follow commands Other Exams right groin arteriotomy site intact, now swelling, erythema, neurovascular status intact Assessment Assessment 1. Multiorgan failure with sepsis: again significant improvement 2. NSTEMI: Peaked trop 31, demand mediated due to #1. 02/25/2017 with patent radial artery graft to PDA/RCA and patent MCCLAIN/FIGUEROA 'T' graft to LAD/LCx. EF 60% . 3. CAD: S/P CABG 04/30/16 4. Acute on chronic respiratory failure: extubated yesterday. failed swallow study today 5. Shock liver with notable thrombocytopenia: resolved 6. BRADLEY/ATN with CKD: much improved 7. Diabetes/hypoglycemic reaction yesterday per PCP 8. HTN: labile 9. Right arm ecchymoses: recent with heparin. No pain, neurovascular status intact. Suspect from frequent BP monitoring. Recommendations 1. Continue with lopressor IV. start on vasotec IV pending labs. Labetolol IV PRN 2. BMP, CBC and Mg today. Replace K Mg as warranted 3. PO Secondary prevention to commence once she passes her swallow study ELY CHURCH FLOW MATCH SOFA CUTTER February 26, 2017 10:45
[2017-02-26 10:52] LABS: CALCIUM 8.7 mg/dL (8.5-10.1); CREATININE 0.8 mg/dL (0.6-1.0); GFR 72.7; MAGNESIUM 1.9 mg/dL (1.8-2.4); POTASSIUM 3.5 mmol/L (3.5-5.1)
[2017-02-26 11:00] VITALS: BP 172/102
--- NOTE | 2017-02-26 11:11 | PDOC ---
PULMONARY PROGRESS NOTES Subjective extubated 02/24 doing well Vitals Vital Signs Date Time Temp Pulse Resp B/P Pulse Ox O2 Delivery O2 Flow Rate FiO2 02/26/17 11:00 97.9 79 22 172/102 91 Nasal Cannula 5.0 97.9 General: Alert, No acute distress Lungs: Clear Cardiovascular: S1, S2 Abdomen: Soft Extremities: Other (1+edema) Skin: Warm Labs Laboratory Tests Test 02/24/17 12:04 02/24/17 17:11 02/24/17 20:45 02/24/17 23:53 Glucose (Fingerstick) 289mg/dL (70-99) 200mg/dL (70-99) 182mg/dL (70-99) Urine Collection Type Unknown Urine Color Yellow Urine Clarity Clear Urine pH 5.5 Urine Specific [place] >=1.030 Urine Protein 30mg/dL (NEG-TRACE) Urine Glucose (UA) >=1000mg/dL (NEG) Urine Ketones (Stick) Negativemg/dL (NEG) Urine Blood Moderate (NEG) Urine Nitrite Negative (NEG) Urine Bilirubin Negative (NEG) Urine Urobilinogen Dipstick 1.0mg/dL (0.2 mg/dL) Urine Leukocyte Esterase Negative (NEG) Urine RBC 6-10/HPF (0-2) Urine WBC Occ/HPF (0-4) Urine Squamous Epithelial Cells Mod/LPF Urine Bacteria Few/HPF (0-FEW) Urine Hyaline Casts Occasional/HPF Urine Mucus Mod/LPF Test 02/25/17 06:36 02/25/17 06:40 02/25/17 07:28 02/25/17 07:42 Glucose (Fingerstick) 41mg/dL (70-99) 44mg/dL (70-99) 231mg/dL (70-99) White Blood Count 19.6x10^3/uL (4.0-11.0) Red Blood Count 4.76x10^6/uL (3.50-5.40) Hemoglobin 11.1g/dL (12.0-15.5) Hematocrit 37.0% (36.0-47.0) Mean Corpuscular Volume 78fL (79-100) Mean Corpuscular Hemoglobin 23pg (25-35) Mean Corpuscular Hemoglobin Concent 30g/dL (31-37) Red Cell Distribution Width 23.3% (11.5-14.5) Platelet Count 252x10^3/uL (140-400) Neutrophils (%) (Auto) 77% (31-73) Lymphocytes (%) (Auto) 12% (24-48) Monocytes (%) (Auto) 11% (0-9) Eosinophils (%) (Auto) 0% (0-3) Basophils (%) (Auto) 0% (0-3) Neutrophils # (Auto) 15.1x10^3uL (1.8-7.7) Lymphocytes # (Auto) 2.4x10^3/uL (1.0-4.8) Monocytes # (Auto) 2.1x10^3/uL (0.0-1.1) Eosinophils # (Auto) 0.1x10^3/uL (0.0-0.7) Basophils # (Auto) 0.0x10^3/uL (0.0-0.2) Segmented Neutrophils % 73% (35-66) Lymphocytes % 18% (24-48) Monocytes % 9% (0-10) Platelet Estimate Adequate (ADEQUATE) Large Platelets Present Hypochromasia Slight Poikilocytosis Present Anisocytosis Mod Schistocytes Occ Sodium Level 144mmol/L (136-145) Potassium Level 3.0mmol/L (3.5-5.1) Chloride Level 104mmol/L (98-107) Carbon Dioxide Level 33mmol/L (21-32) Anion Gap 7 (6-14) Blood Urea Nitrogen 41mg/dL (7-20) Creatinine 0.8mg/dL (0.6-1.0) Estimated GFR (Cockcroft-Gault) 72.7 Glucose Level 40mg/dL (70-99) Calcium Level 8.9mg/dL (8.5-10.1) Phosphorus Level 3.2mg/dL (2.6-4.7) Magnesium Level 2.1mg/dL (1.8-2.4) Creatine Kinase 111U/L (26-192) Albumin 3.2g/dL (3.4-5.0) Test 02/25/17 08:49 02/25/17 08:50 02/25/17 10:19 02/25/17 10:49 Glucose (Fingerstick) 72mg/dL (70-99) 61mg/dL (70-99) 94mg/dL (70-99) Heparin Anti-Xa Act, Unfractionated 0.35IU/mL (0.30-0.70) Test 02/25/17 11:43 02/25/17 17:01 02/25/17 18:43 02/25/17 20:55 Glucose (Fingerstick) 70mg/dL (70-99) 75mg/dL (70-99) 65mg/dL (70-99) 77mg/dL (70-99) Test 02/26/17 06:30 02/26/17 07:37 White Blood Count 13.0x10^3/uL (4.0-11.0) Red Blood Count 4.62x10^6/uL (3.50-5.40) Hemoglobin 10.9g/dL (12.0-15.5) Hematocrit 35.5% (36.0-47.0) Mean Corpuscular Volume 77fL (79-100) Mean Corpuscular Hemoglobin 24pg (25-35) Mean Corpuscular Hemoglobin Concent 31g/dL (31-37) Red Cell Distribution Width 23.3% (11.5-14.5) Platelet Count 221x10^3/uL (140-400) Neutrophils (%) (Auto) 80% (31-73) Lymphocytes (%) (Auto) 9% (24-48) Monocytes (%) (Auto) 11% (0-9) Eosinophils (%) (Auto) 0% (0-3) Basophils (%) (Auto) 0% (0-3) Neutrophils # (Auto) 10.4x10^3uL (1.8-7.7) Lymphocytes # (Auto) 1.2x10^3/uL (1.0-4.8) Monocytes # (Auto) 1.4x10^3/uL (0.0-1.1) Eosinophils # (Auto) 0.0x10^3/uL (0.0-0.7) Basophils # (Auto) 0.0x10^3/uL (0.0-0.2) Sodium Level 143mmol/L (136-145) Potassium Level 3.5mmol/L (3.5-5.1) Chloride Level 103mmol/L (98-107) Carbon Dioxide Level 31mmol/L (21-32) Anion Gap 9 (6-14) Blood Urea Nitrogen 35mg/dL (7-20) Creatinine 0.8mg/dL (0.6-1.0) Estimated GFR (Cockcroft-Gault) 72.7 Glucose Level 143mg/dL (70-99) Calcium Level 8.7mg/dL (8.5-10.1) Magnesium Level 1.9mg/dL (1.8-2.4) Creatine Kinase 136U/L (26-192) Glucose (Fingerstick) 147mg/dL (70-99) Laboratory Tests Test 02/25/17 11:43 02/25/17 17:01 02/25/17 18:43 02/25/17 20:55 Glucose (Fingerstick) 70mg/dL (70-99) 75mg/dL (70-99) 65mg/dL (70-99) 77mg/dL (70-99) Test 02/26/17 06:30 02/26/17 07:37 White Blood Count 13.0x10^3/uL (4.0-11.0) Red Blood Count 4.62x10^6/uL (3.50-5.40) Hemoglobin 10.9g/dL (12.0-15.5) Hematocrit 35.5% (36.0-47.0) Mean Corpuscular Volume 77fL (79-100) Mean Corpuscular Hemoglobin 24pg (25-35) Mean Corpuscular Hemoglobin Concent 31g/dL (31-37) Red Cell Distribution Width 23.3% (11.5-14.5) Platelet Count 221x10^3/uL (140-400) Neutrophils (%) (Auto) 80% (31-73) Lymphocytes (%) (Auto) 9% (24-48) Monocytes (%) (Auto) 11% (0-9) Eosinophils (%) (Auto) 0% (0-3) Basophils (%) (Auto) 0% (0-3) Neutrophils # (Auto) 10.4x10^3uL (1.8-7.7) Lymphocytes # (Auto) 1.2x10^3/uL (1.0-4.8) Monocytes # (Auto) 1.4x10^3/uL (0.0-1.1) Eosinophils # (Auto) 0.0x10^3/uL (0.0-0.7) Basophils # (Auto) 0.0x10^3/uL (0.0-0.2) Sodium Level 143mmol/L (136-145) Potassium Level 3.5mmol/L (3.5-5.1) Chloride Level 103mmol/L (98-107) Carbon Dioxide Level 31mmol/L (21-32) Anion Gap 9 (6-14) Blood Urea Nitrogen 35mg/dL (7-20) Creatinine 0.8mg/dL (0.6-1.0) Estimated GFR (Cockcroft-Gault) 72.7 Glucose Level 143mg/dL (70-99) Calcium Level 8.7mg/dL (8.5-10.1) Magnesium Level 1.9mg/dL (1.8-2.4) Creatine Kinase 136U/L (26-192) Glucose (Fingerstick) 147mg/dL (70-99) Medications Active Scripts Medications Dose Route/Sig Days Date Category Requip (Ropinirole Hcl) 1 Mg Tablet 4 Mg PO DAILY 02/14/17 Reported Aspir 81 (Aspirin) 81 Mg Tablet. 81 Mg PO DAILY 02/14/17 Reported Wellbutrin Sr (Bupropion Hcl) 150 Mg Tablet.er 150 Mg PO DAILY 02/14/17 Reported Toprol Xl (Metoprolol Succinate) 25 Mg Tab.er.24h 12 Mg PO DAILY 02/14/17 Reported Lasix (Furosemide) 40 Mg Tablet 40 Mg PO DAILY 02/14/17 Reported Pravastatin Sodium 40 Mg Tablet 40 Mg PO DAILY 02/14/17 Reported Pantoprazole Sodium 40 Mg Tablet.dr 40 Mg PO DAILY 02/14/17 Reported [place] 7.5-325 Tablet (Acetaminophen/Hydrocodone Bitart) 1 Each Tablet 1 Tab PO PRN Q6HRS PRN 12/06/14 Rx Doxycycline Hyclate 100 Mg Capsule 1 Cap PO BID 12/06/14 Reported Hydrocodone-Apap 5-325 (Hydrocodone Bit/Acetaminophen) 1 Each Tablet 1-2 Tab PO Q4-6HRS PRN 12/06/14 Reported Levothyroxine Sodium 75 Mcg Tablet 1 Tab PO DAILY 12/05/14 Reported Citalopram Hbr (Citalopram Hydrobromide) 20 Mg Tablet 20 Mg PO DAILY 12/05/14 Reported Losartan Potassium 50 Mg Tablet 50 Mg PO DAILY 12/05/14 Reported Metformin Hcl 500 Mg Tablet 1 Tab PO TIDWMEALS 12/05/14 Reported Comments cxr no change Impression . 1. Acute respiratory failure secondary to SEPTIC SHOCK, resolved, extubated 02/24 2. SEPTIC SHOCK, resolved 3. Acute renal failure, improved no further HD needed 4. 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 Not been on chronic steroids. 5. Marked anion gap metabolic acidosis secondary to septic shock./renal failure , improved 6. Non-ST myocardial infarction. 7. Nutrition ,on tube feeding 8. Abnormal cxr sec to old ILD Plan . 1. Doing well post extubation 2. antibiotics, per ID 3. pressors off 4. off Hemodialysis per nephro 5. Chest x-ray, follow up as needed 6. E coli UTI 8. DVT prophylaxis. 9. Stress ulcer prophylaxis.speech eval/ PT consult 10. taper Hydrocortisone 11. Echo report NOTED 12. cath note reviewed. medical treatment COLETTE HARDIN MD February 26, 2017 11:11
--- NOTE | 2017-02-26 11:42 | PDOC ---
Subjective: Subjective: Says depressed about swallowing issue, wants to go home. Objective: Vital Signs: Vital Signs Date Time Temp Pulse Resp B/P Pulse Ox O2 Delivery O2 Flow Rate FiO2 02/26/17 11:25 Nasal Cannula 5.0 02/26/17 11:00 97.9 79 22 172/102 91 97.9 Labs: Laboratory Tests Test 02/25/17 11:43 02/25/17 17:01 02/25/17 18:43 02/25/17 20:55 Glucose (Fingerstick) 70mg/dL 75mg/dL 65mg/dL 77mg/dL Test 02/26/17 06:30 02/26/17 07:37 White Blood Count 13.0x10^3/uL Red Blood Count 4.62x10^6/uL Hemoglobin 10.9g/dL Hematocrit 35.5% Mean Corpuscular Volume 77fL Mean Corpuscular Hemoglobin 24pg Mean Corpuscular Hemoglobin Concent 31g/dL Red Cell Distribution Width 23.3% Platelet Count 221x10^3/uL Neutrophils (%) (Auto) 80% Lymphocytes (%) (Auto) 9% Monocytes (%) (Auto) 11% Eosinophils (%) (Auto) 0% Basophils (%) (Auto) 0% Neutrophils # (Auto) 10.4x10^3uL Lymphocytes # (Auto) 1.2x10^3/uL Monocytes # (Auto) 1.4x10^3/uL Eosinophils # (Auto) 0.0x10^3/uL Basophils # (Auto) 0.0x10^3/uL Sodium Level 143mmol/L Potassium Level 3.5mmol/L Chloride Level 103mmol/L Carbon Dioxide Level 31mmol/L Anion Gap 9 Blood Urea Nitrogen 35mg/dL Creatinine 0.8mg/dL Estimated GFR (Cockcroft-Gault) 72.7 Glucose Level 143mg/dL Calcium Level 8.7mg/dL Magnesium Level 1.9mg/dL Creatine Kinase 136U/L Glucose (Fingerstick) 147mg/dL Imaging: [facility] Bedside Swallow Eval IMPRESSIONS: Laryngeal dysfunction s/p 7d.intubation as evidenced by aphonia, breathy cough c/w aphonia and impaired hyolaryngeal excursion at swallow. Pt is at HIGH risk of SILENT aspiration. NO safe consistency. Time NPO required is unclear at this time. Will f/u for progress over next few days. However, given time intubated and current severity of dysphagia, suspect pt may require non- oral nutrition for at least immediate future. Etiology of dysphagia is c/w pt's recent intubation and general weakness. RECOMMENDATIONS: NPO meds and nutrition. No safe consistency. Oral care. NO swabs in water. Precautions posted bedside and explained to pt w/questionable understanding. PE: GEN: NAD, up to chair LUNGS: nasal cannula HEART: S1S2 ABD: NABS, S/ND/NT NEURO/PSYCH: A & O 3 A/P: NSTEMI, resp failure -extubated 02/24, cardiac cath 02/25 Dysphagia -swallow eval as above Gastroparesis -- Follow swallow evals. JF CENTENO February 26, 2017 11:42
[2017-02-26] MEDS: PANTOPRAZOLE IV PUSH 40 MG VIAL. IVP SCH (12:08)
[2017-02-26] MEDS: HYDROCORTISONE SOD SUCC/PF 100 MG/2 ML VIAL. IV SCH ×2 (12:11→21:24)
[2017-02-26] MEDS: LEVOTHYROXINE SODIUM 37.5 MCG in IV NORMAL SALINE 50ML 5 ML IVP SCH (12:11)
[2017-02-26] MEDS: ENALAPRILAT 1.25 MG/ML VIAL. IV SCH ×2 (13:11→18:15)
[2017-02-26] MEDS: AMINO AC 3%/ELECTROLYTE/GLYCER 1,000 ML IV SCH (13:13)
[2017-02-26 15:00] VITALS: BP 173/91
--- NOTE | 2017-02-26 15:20 | PDOC ---
PROGRESS NOTES Chief Complaint Chief Complaint cc: Respiratory failure, acute -Pulmonary fibrosis -Acute renal failure -DM -CHF, chronic -CABG w. CAD -NSTEMI -tobacco use d/o -HLD -HTN -FREDY -Obesity -Constipation -GERD -Hypothyroidism -Anxiety -Hepatitis A History of Present Illness History of Present Illness she is upset about NPO, long-term plan discussed She has been extubated. She will have a cardiac cath today and a swallow study. We discussed the case with her nurse. Vitals Vitals Vital Signs Date Time Temp Pulse Resp B/P Pulse Ox O2 Delivery O2 Flow Rate FiO2 02/26/17 15:01 Nasal Cannula 5.0 02/26/17 13:11 79 172/102 02/26/17 11:00 97.9 22 91 97.9 Physical Exam General: Alert, Cooperative, No acute distress Heart: Regular rate, Normal S1, Normal S2 Lungs: Clear Abdomen: No hepatosplenomegaly, No masses Extremities: No cyanosis, Normal pulses Skin: No rashes, No breakdown Labs LABS Laboratory Tests Test 02/25/17 17:01 02/25/17 18:43 02/25/17 20:55 02/26/17 06:30 Glucose (Fingerstick) 75mg/dL (70-99) 65mg/dL (70-99) 77mg/dL (70-99) White Blood Count 13.0x10^3/uL (4.0-11.0) Red Blood Count 4.62x10^6/uL (3.50-5.40) Hemoglobin 10.9g/dL (12.0-15.5) Hematocrit 35.5% (36.0-47.0) Mean Corpuscular Volume 77fL (79-100) Mean Corpuscular Hemoglobin 24pg (25-35) Mean Corpuscular Hemoglobin Concent 31g/dL (31-37) Red Cell Distribution Width 23.3% (11.5-14.5) Platelet Count 221x10^3/uL (140-400) Neutrophils (%) (Auto) 80% (31-73) Lymphocytes (%) (Auto) 9% (24-48) Monocytes (%) (Auto) 11% (0-9) Eosinophils (%) (Auto) 0% (0-3) Basophils (%) (Auto) 0% (0-3) Neutrophils # (Auto) 10.4x10^3uL (1.8-7.7) Lymphocytes # (Auto) 1.2x10^3/uL (1.0-4.8) Monocytes # (Auto) 1.4x10^3/uL (0.0-1.1) Eosinophils # (Auto) 0.0x10^3/uL (0.0-0.7) Basophils # (Auto) 0.0x10^3/uL (0.0-0.2) Sodium Level 143mmol/L (136-145) Potassium Level 3.5mmol/L (3.5-5.1) Chloride Level 103mmol/L (98-107) Carbon Dioxide Level 31mmol/L (21-32) Anion Gap 9 (6-14) Blood Urea Nitrogen 35mg/dL (7-20) Creatinine 0.8mg/dL (0.6-1.0) Estimated GFR (Cockcroft-Gault) 72.7 Glucose Level 143mg/dL (70-99) Calcium Level 8.7mg/dL (8.5-10.1) Magnesium Level 1.9mg/dL (1.8-2.4) Creatine Kinase 136U/L (26-192) Test 02/26/17 07:37 02/26/17 11:51 Glucose (Fingerstick) 147mg/dL (70-99) 124mg/dL (70-99) Review of Systems Review of Systems no n.v.d Assessment and Plan Assessmemt and Plan Problems Medical Problems: (1) ARF (acute renal failure) Status: Acute (2) Cardiac failure Status: Acute (3) Hypoxia Status: Acute (4) Respiratory failure Status: Acute Problems: Comment Review of Relevant I have reviewed the following items trey (where applicable) has been applied. Labs Laboratory Tests Test 02/24/17 17:11 02/24/17 20:45 02/24/17 23:53 02/25/17 06:36 Glucose (Fingerstick) 200mg/dL (70-99) 182mg/dL (70-99) 41mg/dL (70-99) Urine Collection Type Unknown Urine Color Yellow Urine Clarity Clear Urine pH 5.5 Urine Specific Swain >=1.030 Urine Protein 30mg/dL (NEG-TRACE) Urine Glucose (UA) >=1000mg/dL (NEG) Urine Ketones (Stick) Negativemg/dL (NEG) Urine Blood Moderate (NEG) Urine Nitrite Negative (NEG) Urine Bilirubin Negative (NEG) Urine Urobilinogen Dipstick 1.0mg/dL (0.2 mg/dL) Urine Leukocyte Esterase Negative (NEG) Urine RBC 6-10/HPF (0-2) Urine WBC Occ/HPF (0-4) Urine Squamous Epithelial Cells Mod/LPF Urine Bacteria Few/HPF (0-FEW) Urine Hyaline Casts Occasional/HPF Urine Mucus Mod/LPF Test 02/25/17 06:40 02/25/17 07:28 02/25/17 07:42 02/25/17 08:49 White Blood Count 19.6x10^3/uL (4.0-11.0) Red Blood Count 4.76x10^6/uL (3.50-5.40) Hemoglobin 11.1g/dL (12.0-15.5) Hematocrit 37.0% (36.0-47.0) Mean Corpuscular Volume 78fL (79-100) Mean Corpuscular Hemoglobin 23pg (25-35) Mean Corpuscular Hemoglobin Concent 30g/dL (31-37) Red Cell Distribution Width 23.3% (11.5-14.5) Platelet Count 252x10^3/uL (140-400) Neutrophils (%) (Auto) 77% (31-73) Lymphocytes (%) (Auto) 12% (24-48) Monocytes (%) (Auto) 11% (0-9) Eosinophils (%) (Auto) 0% (0-3) Basophils (%) (Auto) 0% (0-3) Neutrophils # (Auto) 15.1x10^3uL (1.8-7.7) Lymphocytes # (Auto) 2.4x10^3/uL (1.0-4.8) Monocytes # (Auto) 2.1x10^3/uL (0.0-1.1) Eosinophils # (Auto) 0.1x10^3/uL (0.0-0.7) Basophils # (Auto) 0.0x10^3/uL (0.0-0.2) Segmented Neutrophils % 73% (35-66) Lymphocytes % 18% (24-48) Monocytes % 9% (0-10) Platelet Estimate Adequate (ADEQUATE) Large Platelets Present Hypochromasia Slight Poikilocytosis Present Anisocytosis Mod Schistocytes Occ Sodium Level 144mmol/L (136-145) Potassium Level 3.0mmol/L (3.5-5.1) Chloride Level 104mmol/L (98-107) Carbon Dioxide Level 33mmol/L (21-32) Anion Gap 7 (6-14) Blood Urea Nitrogen 41mg/dL (7-20) Creatinine 0.8mg/dL (0.6-1.0) Estimated GFR (Cockcroft-Gault) 72.7 Glucose Level 40mg/dL (70-99) Calcium Level 8.9mg/dL (8.5-10.1) Phosphorus Level 3.2mg/dL (2.6-4.7) Magnesium Level 2.1mg/dL (1.8-2.4) Creatine Kinase 111U/L (26-192) Albumin 3.2g/dL (3.4-5.0) Glucose (Fingerstick) 44mg/dL (70-99) 231mg/dL (70-99) 72mg/dL (70-99) Test 02/25/17 08:50 02/25/17 10:19 02/25/17 10:49 02/25/17 11:43 Heparin Anti-Xa Act, Unfractionated 0.35IU/mL (0.30-0.70) Glucose (Fingerstick) 61mg/dL (70-99) 94mg/dL (70-99) 70mg/dL (70-99) Test 02/25/17 17:01 02/25/17 18:43 02/25/17 20:55 02/26/17 06:30 Glucose (Fingerstick) 75mg/dL (70-99) 65mg/dL (70-99) 77mg/dL (70-99) White Blood Count 13.0x10^3/uL (4.0-11.0) Red Blood Count 4.62x10^6/uL (3.50-5.40) Hemoglobin 10.9g/dL (12.0-15.5) Hematocrit 35.5% (36.0-47.0) Mean Corpuscular Volume 77fL (79-100) Mean Corpuscular Hemoglobin 24pg (25-35) Mean Corpuscular Hemoglobin Concent 31g/dL (31-37) Red Cell Distribution Width 23.3% (11.5-14.5) Platelet Count 221x10^3/uL (140-400) Neutrophils (%) (Auto) 80% (31-73) Lymphocytes (%) (Auto) 9% (24-48) Monocytes (%) (Auto) 11% (0-9) Eosinophils (%) (Auto) 0% (0-3) Basophils (%) (Auto) 0% (0-3) Neutrophils # (Auto) 10.4x10^3uL (1.8-7.7) Lymphocytes # (Auto) 1.2x10^3/uL (1.0-4.8) Monocytes # (Auto) 1.4x10^3/uL (0.0-1.1) Eosinophils # (Auto) 0.0x10^3/uL (0.0-0.7) Basophils # (Auto) 0.0x10^3/uL (0.0-0.2) Sodium Level 143mmol/L (136-145) Potassium Level 3.5mmol/L (3.5-5.1) Chloride Level 103mmol/L (98-107) Carbon Dioxide Level 31mmol/L (21-32) Anion Gap 9 (6-14) Blood Urea Nitrogen 35mg/dL (7-20) Creatinine 0.8mg/dL (0.6-1.0) Estimated GFR (Cockcroft-Gault) 72.7 Glucose Level 143mg/dL (70-99) Calcium Level 8.7mg/dL (8.5-10.1) Magnesium Level 1.9mg/dL (1.8-2.4) Creatine Kinase 136U/L (26-192) Test 02/26/17 07:37 02/26/17 11:51 Glucose (Fingerstick) 147mg/dL (70-99) 124mg/dL (70-99) Laboratory Tests Test 02/25/17 17:01 02/25/17 18:43 02/25/17 20:55 02/26/17 06:30 Glucose (Fingerstick) 75mg/dL (70-99) 65mg/dL (70-99) 77mg/dL (70-99) White Blood Count 13.0x10^3/uL (4.0-11.0) Red Blood Count 4.62x10^6/uL (3.50-5.40) Hemoglobin 10.9g/dL (12.0-15.5) Hematocrit 35.5% (36.0-47.0) Mean Corpuscular Volume 77fL (79-100) Mean Corpuscular Hemoglobin 24pg (25-35) Mean Corpuscular Hemoglobin Concent 31g/dL (31-37) Red Cell Distribution Width 23.3% (11.5-14.5) Platelet Count 221x10^3/uL (140-400) Neutrophils (%) (Auto) 80% (31-73) Lymphocytes (%) (Auto) 9% (24-48) Monocytes (%) (Auto) 11% (0-9) Eosinophils (%) (Auto) 0% (0-3) Basophils (%) (Auto) 0% (0-3) Neutrophils # (Auto) 10.4x10^3uL (1.8-7.7) Lymphocytes # (Auto) 1.2x10^3/uL (1.0-4.8) Monocytes # (Auto) 1.4x10^3/uL (0.0-1.1) Eosinophils # (Auto) 0.0x10^3/uL (0.0-0.7) Basophils # (Auto) 0.0x10^3/uL (0.0-0.2) Sodium Level 143mmol/L (136-145) Potassium Level 3.5mmol/L (3.5-5.1) Chloride Level 103mmol/L (98-107) Carbon Dioxide Level 31mmol/L (21-32) Anion Gap 9 (6-14) Blood Urea Nitrogen 35mg/dL (7-20) Creatinine 0.8mg/dL (0.6-1.0) Estimated GFR (Cockcroft-Gault) 72.7 Glucose Level 143mg/dL (70-99) Calcium Level 8.7mg/dL (8.5-10.1) Magnesium Level 1.9mg/dL (1.8-2.4) Creatine Kinase 136U/L (26-192) Test 02/26/17 07:37 02/26/17 11:51 Glucose (Fingerstick) 147mg/dL (70-99) 124mg/dL (70-99) Microbiology 02/18/17 Urine Culture - Final, Complete 02/18/17 Urine Culture Result 1 (NORBERTO) - Final, Complete Medications Current Medications Sodium Polystyrene Sulfonate (Kayexalate) 30 gm 1X ONCE PO Last administered on 02/17/17 03:54; Start 02/17/17 at 02:45; Stop 02/17/17 at 02:46; Status DC Ondansetron HCl (Zofran) 4 mg PRN Q6HRS PRN IV NAUSEA/VOMITING; Start 02/17/17 at 02:00 Pantoprazole Sodium (Protonix Vial) 40 mg TID IVP Last administered on 08:56; Start 02/17/17 at 09:00; Stop 02/17/17 at 13:17; Status DC Acetaminophen 650 mg 650 mg PRN Q6HRS PRN PO FEVER; Start 02/17/17 at 02:00 Midazolam HCl 100 ml @ 0 mls/hr CONT PRN IV SEE I/O RECORD Last administered on 02/17/17 20:34; Start 02/17/17 at 02:30; Stop 02/26/17 at 12:19; Status DC Levothyroxine Sodium 37.5 mcg/ Sodium Chloride 5 ml @ 100 mls/hr DAILY IVP Last administered on 02/26/17 12:11; Start 02/17/17 at 09:00 Sodium Chloride 1,000 ml @ 100 mls/hr 1X ONCE IV Last administered on 04:25; Start 02/17/17 at 04:30; Stop 02/17/17 at 11:25; Status DC Sodium Chloride (Iv Sodium Chloride 0.9% 1000ml Bag) 1,000 ml @ 100 mls/hr 1X ONCE IV Last administered on 02/17/17 04:25; Start 02/17/17 at 04:30; Stop at 09:15; Status DC Pneumococcal Polyvalent Vaccine (Do NOT chart on this placeholder) 1 each 1X ONCE MC ; Start 02/17/17 at 06:00; Stop 02/17/17 at 06:01; Status UNV Pneumococcal Polyvalent Vaccine 0.5 ml 0.5 ml ONCE ONCE VAX IM ; Start 02/17/17 at 09:00; Stop 02/17/17 at 09:01; Status DC Norepinephrine Bitartrate 250 ml @ 0 mls/hr CONT PRN IV SEE I/O RECORD Last administered on 02/18/17 11:15; Start 02/17/17 at 06:15; Stop 02/26/17 at 12:20 ; Status DC Sodium Chloride 1,000 ml @ 1,000 mls/hr 1X ONCE IV Last administered on 08:56; Start 02/17/17 at 08:15; Stop 02/17/17 at 09:14; Status DC Piperacillin Sod/ Tazobactam Sod 2.25 gm/Sodium Chloride 50 ml @ 100 mls/hr Q8HRS IV Last administered on 02/24/17 06:33; Start 02/17/17 at 08:45; Stop 02/24/17 at 09:48; Status DC Magnesium Sulfate/ Dextrose (Magnesium Sulfate PREMIX 2GM) 50 ml @ 25 mls/hr 1X ONCE IV Last administered on 02/17/17 09:30; Start 02/17/17 at 09:00; Stop 02/17/17 at 10:59; Status DC Fentanyl Citrate 50 mcg 50 mcg PRN Q2HR PRN IV PAIN Last administered on 21:47; Start 02/17/17 at 09:00 Sodium Chloride (Iv Sodium Chloride 0.9% 1000ml Bag) 1,000 ml @ 1,000 mls/hr 1X ONCE IV Last administered on 02/17/17 08:57; Start 02/17/17 at 09:00; Stop 02/17/17 at 09:59; Status DC Heparin Sodium (Porcine) (Heparin Sodium) 10,000 unit STK-MED ONCE .ROUTE ; Start 02/17/17 at 09:23; Stop 02/17/17 at 09:24; Status DC Lidocaine/Sodium Bicarbonate 20 ml 20 ml STK-MED ONCE IJ ; Start 02/17/17 at 09: 23; Stop 02/17/17 at 09:24; Status DC Heparin Sodium/ Sodium Chloride 500 ml @ As Directed STK-MED ONCE .ROUTE ; Start 02/17/17 at 09:23; Stop 02/17/17 at 09:24; Status DC Lidocaine/Sodium Bicarbonate (Buffered Lidocaine 1%) 3 ml 1X ONCE IJ ; Start at 09:30; Stop 02/17/17 at 09:35; Status DC Heparin Sodium/ Sodium Chloride 60 unit 1X ONCE IV ; Start 02/17/17 at 09:30; Stop 02/17/17 at 09:35; Status DC Heparin Sodium (Porcine) (Heparin Sodium) 2,500 unit 1X ONCE INT CAT ; Start at 09:30; Stop 02/17/17 at 09:35; Status DC Sodium Bicarbonate 50 meq STK-MED ONCE .ROUTE ; Start 02/17/17 at 09:42; Stop at 09:43; Status DC Sodium Bicarbonate 100 meq 100 meq 1X ONCE IV Last administered on 02/17/17 09:51; Start 02/17/17 at 09:45; Stop 02/17/17 at 09:48; Status DC Sodium Bicarbonate 150 meq/Dextrose 1,150 ml @ 150 mls/hr Q7H40M IV Last administered on 02/17/17 10:34; Start 02/17/17 at 09:45; Stop 02/17/17 at 18:05 ; Status DC Vasopressin/ Dextrose (Vasostrict) 102 ml @ 6 mls/hr ONCE ONCE IV Last administered on 02/17/17 10:34; Start 02/17/17 at 10:00; Stop 02/18/17 at 02:59 ; Status DC Hydrocortisone Sodium Succinate (Solu-Cortef) 100 mg Q8HRS IV ; Start 02/17/17 at 10:30; Stop 02/17/17 at 10:30; Status DC Vancomycin HCl (Vanco Per Pharmacy) 1 each PRN DAILY PRN MC SEE COMMENTS Last administered on 02/17/17 10:28; Start 02/17/17 at 10:15; Stop 02/18/17 at 12:50 ; Status DC Lidocaine/Sodium Bicarbonate (Buffered Lidocaine 1%) 3 ml 1X ONCE IJ ; Start at 10:15; Stop 02/17/17 at 10:16; Status DC Heparin Sodium/ Sodium Chloride 60 unit 1X ONCE IV ; Start 02/17/17 at 10:15; Stop 02/17/17 at 10:16; Status DC Heparin Sodium (Porcine) (Heparin Sodium) 2,500 unit 1X ONCE INT CAT ; Start at 10:15; Stop 02/17/17 at 10:16; Status DC Hydrocortisone Sodium Succinate 100 mg 100 mg ONCE ONCE IV Last administered on 02/17/17 10:36; Start 02/17/17 at 10:30; Stop 02/17/17 at 10:31; Status DC Vasopressin 40 unit/Dextrose 102 ml @ 6 mls/hr CONT PRN IV SEE I/O RECORD Last administered on 02/18/17 13:53; Start 02/17/17 at 10:15; Stop 02/23/17 at 07:49 ; Status DC Vancomycin HCl/ Sodium Chloride (Iv Sodium Chloride 0.9% 500ml Bag) 500 ml @ 250 mls/hr ONCE ONCE IV Last administered on 02/17/17 13:53; Start 02/17/17 at 10:30; Stop 02/17/17 at 12:29; Status DC Hydrocortisone Sodium Succinate (Solu-Cortef) 100 mg Q8HRS IV Last administered on 02/23/17 06:07; Start 02/17/17 at 14:00; Stop 02/23/17 at 07:49 ; Status DC Vancomycin HCl 1 each 1X ONCE MC ; Start 02/19/17 at 10:30; Stop 02/19/17 at 10 :30; Status DC Chlorhexidine Gluconate 15 ml 15 ml BID SWSP Last administered on 02/24/17 20: 54; Start 02/17/17 at 21:00; Stop 02/25/17 at 08:05; Status DC Sodium Chloride 1,000 ml @ 100 mls/hr Q10H IV Last administered on 02/17/17 13:53; Start 02/17/17 at 12:15; Stop 02/17/17 at 18:58; Status DC Sodium Chloride (Iv Sodium Chloride 0.9% 1000ml Bag) 1,000 ml @ 1,000 mls/hr Q1H PRN IV hypotension; Start 02/17/17 at 12:28; Stop 02/17/17 at 18:27; Status DC Sodium Chloride (Normal Saline Flush) 10 ml 1X PRN PRN IV AP catheter pack; Start 02/17/17 at 12:30; Stop 02/18/17 at 12:29; Status DC Sodium Chloride (Normal Saline Flush) 10 ml 1X PRN PRN 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[employer]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; Start 02/17/17 at 12:30; Stop 02/18/17 at 12:29; Status DC Info (PHARMACY MONITORING -- do not chart) 1 each PRN DAILY PRN MC SEE COMMENTS ; Start 02/17/17 at 12:30; Stop 02/24/17 at 09:43; Status DC Info (PHARMACY MONITORING -- do not chart) 1 each PRN DAILY PRN MC SEE COMMENTS ; Start 02/17/17 at 12:30; Status UNV Pantoprazole Sodium 40 mg 40 mg DAILY IVP Last administered on 02/26/17 12:08; Start 02/18/17 at 09:00 Albumin Human 50 ml @ 50 mls/hr 1X ONCE IV Last administered on 02/17/17 18: 58; Start 02/17/17 at 18:45; Stop 02/17/17 at 19:44; Status DC Sodium Chloride 1,000 ml @ 125 mls/hr 1X ONCE IV ; Start 02/17/17 at 18:45; Stop 02/18/17 at 09:15; Status DC Sodium Chloride 1,000 ml @ 125 mls/hr Q8H IV Last administered on 02/18/17 05 :42; Start 02/17/17 at 19:00; Stop 02/18/17 at 09:15; Status DC Sodium Chloride 1,000 ml @ 1,000 mls/hr Q1H PRN IV hypotension; Start 02/18/17 at 07:47; Stop 02/18/17 at 13:46; Status DC Albumin Human (Albuminar) 200 ml @ 200 mls/hr 1X PRN PRN IV Hypotension; Start 02/18/17 at 08:00; Stop 02/18/17 at 13:59; Status DC Acetaminophen (Tylenol) 500 mg 1X PRN PRN PO MILD PAIN / TEMP; Start 02/18/17 at 08:00; Stop 02/19/17 at 07:59; Status DC Diphenhydramine HCl (Benadryl) 25 mg 1X PRN PRN IV ITCHING; Start 02/18/17 at 08:00; Stop 02/19/17 at 07:59; Status DC Diphenhydramine HCl (Benadryl) 25 mg 1X PRN PRN IV ITCHING; Start 02/18/17 at 08:00; Stop 02/19/17 at 07:59; Status DC Labetalol HCl (Normodyne) 10 mg PRN Q1HR PRN IVP SBP > 180; Start 02/18/17 at 08:00; Stop 02/19/17 at 07:59; Status DC Clonidine HCl 0.1 mg 0.1 mg 1X PRN PRN PO SBP > 180; Start 02/18/17 at 08:00; Stop 02/19/17 at 07:59; Status DC Sodium Chloride (Iv Sodium Chloride 0.9% 1000ml Bag) 1,000 ml @ 400 mls/hr Q2H30M PRN IV PATENCY; Start 02/18/17 at 07:47; Stop 02/18/17 at 19:46; Status DC Info 1 each 1 each PRN DAILY PRN MC SEE COMMENTS; Start 02/18/17 at 08:00; Status UNV Magnesium Sulfate/ Dextrose 50 ml @ 25 mls/hr PRN DAILY PRN IV for Mag < 1.7 on am labs Last administered on 02/18/17 11:16; Start 02/18/17 at 08:00 Propofol 100 ml @ As Directed STK-MED ONCE IV ; Start 02/18/17 at 11:47; Stop 02/18/17 at 11:48; Status DC Propofol (Diprivan) 100 ml @ 0 mls/hr CONT PRN IV SEE I/O RECORD Last administered on 02/24/17 06:49; Start 02/18/17 at 12:45; Stop 02/25/17 at 08:05; Status DC Insulin Aspart (Novolog) 0-7 UNITS Q6HRS SQ Last administered on 02/24/17 12:08 ; Start 02/19/17 at 00:00 Dextrose 12.5 gm 12.5 gm PRN Q15MIN PRN IV SEE COMMENTS Last administered on 19:15; Start 02/18/17 at 21:00 Magnesium Sulfate/ Dextrose 50 ml @ 25 mls/hr PRN DAILY PRN IV for Mag < 1.7 on am labs; Start 02/19/17 at 07:45; Stop 02/19/17 at 10:20; Status DC Potassium Chloride 50 ml @ 50 mls/hr PRN Q6HRS PRN IV For K < 3.7; Start at 07:45 Potassium Chloride 50 ml @ 50 mls/hr PRN Q2HR PRN IV total of 40mEq for K < 3.5 Last administered on 02/22/17 12:11; Start 02/19/17 at 07:45 Calcium Chloride 2000 mg/Sodium Chloride 120 ml @ 240 mls/hr 1X ONCE IV ; Start 02/19/17 at 08:00; Stop 02/19/17 at 08:29; Status DC Albumin Human (Albuminar) 100 ml @ 100 mls/hr TID IV Last administered on 02/20 20:51; Start 02/19/17 at 09:00; Stop 02/20/17 at 21:59; Status DC Bupropion HCl (Wellbutrin) 75 mg BID NG Last administered on 02/24/17 08:32; Start 02/19/17 at 12:00; Stop 02/25/17 at 21:37; Status DC Citalopram Hydrobromide 20 mg 20 mg DAILY NG Last administered on 02/24/17 08: 32; Start 02/19/17 at 12:00 Heparin Sodium/ Dextrose 500 ml @ 20 mls/hr CONT PRN IV SEE I/O RECORD Last administered on 02/23/17 21:22; Start 02/19/17 at 13:15; Stop 02/26/17 at 12:25 ; Status DC Info 1 each 1 each PRN DAILY PRN MC SEE COMMENTS Last administered on 02/24/17 09:53; Start 02/20/17 at 07:45; Stop 02/26/17 at 12:24; Status DC Potassium Chloride (KCl Premix 20meq) 50 ml @ 50 mls/hr Q1HR IV Last administered on 02/20/17 09:48; Start 02/20/17 at 09:00; Stop 02/20/17 at 10:59 ; Status DC Metoprolol Tartrate (Lopressor) 2.5 mg 1X ONCE IVP Last administered on 14:19; Start 02/20/17 at 14:00; Stop 02/20/17 at 14:01; Status DC Metoprolol Tartrate (Lopressor) 2.5 mg Q6HRS IVP Last administered on 02/24/17 12:04; Start 02/20/17 at 14:00; Stop 02/24/17 at 13:45; Status DC Albuterol/ Ipratropium (Duoneb) 3 ml RTQID NEB Last administered on 02/26/17 15 :00; Start 02/21/17 at 12:00 Insulin Detemir (Levemir) 10 units QHS SQ Last administered on 02/21/17 21:03 ; Start 02/21/17 at 21:00; Stop 02/22/17 at 12:39; Status DC Insulin Detemir (Levemir) 30 units QHS SQ Last administered on 02/24/17 20:53; Start 02/22/17 at 21:00; Stop 02/25/17 at 12:36; Status DC Aspirin (Ecotrin) 81 mg DAILYWBKFT PO ; Start 02/23/17 at 08:00; Stop 02/23/17 at 08:00; Status DC Hydrocortisone Sodium Succinate (Solu-Cortef) 50 mg Q8HRS IV Last administered on 02/24/17 06:33; Start 02/23/17 at 14:00; Stop 02/24/17 at 10:30; Status DC Aspirin 81 mg 81 mg DAILYWBKFT PO Last administered on 02/24/17 08:32; Start at 08:00 Nitroglycerin/ Dextrose 250 ml @ 0 mls/hr 1X ONCE IV ; Start 02/23/17 at 12:30 ; Stop 02/23/17 at 12:31; Status DC Piperacillin Sod/ Tazobactam Sod/ Sodium Chloride (Zosyn/Iv Sodium Chloride 0.9 % 50ml) 50 ml @ 100 mls/hr Q6HRS IV Last administered on 02/25/17 06:21; Start 02/24/17 at 12:00; Stop 02/25/17 at 07:47; Status DC Hydrocortisone Sodium Succinate (Solu-Cortef) 25 mg BID IV Last administered on 02/26/17 12:11; Start 02/25/17 at 09:00 Metoprolol Tartrate (Lopressor) 5 mg Q6HRS IVP Last administered on 02/26/17 13 :10; Start 02/24/17 at 18:00 Metoprolol Tartrate 2.5 mg 2.5 mg 1X ONCE IVP Last administered on 02/24/17 14 :49; Start 02/24/17 at 14:00; Stop 02/24/17 at 14:01; Status DC Sodium Chloride (Iv Sodium Chloride 0.9% 1000ml Bag) 1,000 ml @ 75 mls/hr [id number] IV Last administered on 02/25/17 08:42; Start 02/24/17 at 14:00; Stop at 20:12; Status DC Iohexol 100 ml 100 ml STK-MED ONCE .ROUTE ; Start 02/25/17 at 11:38; Stop at 11:39; Status DC Heparin Sodium/ Sodium Chloride 500 ml @ As Directed STK-MED ONCE .ROUTE ; Start 02/25/17 at 11:38; Stop 02/25/17 at 11:39; Status DC Lidocaine HCl 20 ml STK-MED ONCE .ROUTE ; Start 02/25/17 at 11:38; Stop 02/25/17 at 11:39; Status DC Fentanyl Citrate (Fentanyl 2ml Vial) 100 mcg STK-MED ONCE .ROUTE ; Start at 12:01; Stop 02/25/17 at 12:02; Status DC Midazolam HCl (Versed) 2 mg STK-MED ONCE .ROUTE ; Start 02/25/17 at 12:01; Stop 02/25/17 at 12:02; Status DC Heparin Sodium/ Sodium Chloride 1,000 unit 1X ONCE IART Last administered on 12:43; Start 02/25/17 at 12:30; Stop 02/25/17 at 12:36; Status DC Midazolam HCl (Versed) 1 mg 1X ONCE IV Last administered on 02/25/17 12:44; Start 02/25/17 at 12:30; Stop 02/25/17 at 12:36; Status DC Fentanyl Citrate (Fentanyl 2ml Vial) 50 mcg 1X ONCE IV Last administered on 12:44; Start 02/25/17 at 12:30; Stop 02/25/17 at 12:36; Status DC Iohexol (Omnipaque 350 Mg/ml) 145 ml 1X ONCE IART Last administered on 12:43; Start 02/25/17 at 12:30; Stop 02/25/17 at 12:36; Status DC Lidocaine HCl 20 ml 20 ml 1X ONCE IJ Last administered on 02/25/17 12:43; Start 02/25/17 at 12:30; Stop 02/25/17 at 12:36; Status DC Sodium Chloride (Iv Sodium Chloride 0.45%) 1,000 ml @ 60 mls/hr [id number] IV Last administered on 02/25/17 16:25; Start 02/25/17 at 14:34; Stop 02/25/17 at 20: 12; Status DC Nitroglycerin 0.4 mg 0.4 mg PRN Q5MIN PRN SL CHEST PAIN; Start 02/25/17 at 14:45 Dextrose/Sodium Chloride (Iv D5% - NS) 1,000 ml @ 75 mls/hr [id number] IV Last administered on 02/25/17 21:59; Start 02/25/17 at 19:30; Stop 02/26/17 at 11:34; Status DC Bupropion HCl (Wellbutrin) 75 mg BID PO ; Start 02/26/17 at 09:00; Status UNV Bupropion HCl (Wellbutrin) 75 mg BID PO Last administered on 02/25/17 22:25; Start 02/25/17 at 21:00 Labetalol HCl (Normodyne) 20 mg 1X ONCE IVP Last administered on 02/25/17 23: 33; Start 02/25/17 at 23:30; Stop 02/25/17 at 23:31; Status DC Carvedilol (Coreg) 6.25 mg BIDWMEALS PO Last administered on 02/26/17 07:55; Start 02/26/17 at 08:00; Stop 02/26/17 at 10:31; Status DC Enalaprilat (Vasotec) 1.25 mg Q6HRS IV Last administered on 02/26/17 13:11; Start 02/26/17 at 11:00 Labetalol HCl (Normodyne) 20 mg PRN Q2HR PRN IVP HYPERTENSION, SEE COMMENTS; Start 02/26/17 at 10:45 Active Scripts Active [place] 7.5-325 Tablet (Acetaminophen/Hydrocodone Bitart) 1 Each Tablet 1 Tab PO PRN Q6HRS PRN Reported Requip (Ropinirole Hcl) 1 Mg Tablet 4 Mg PO DAILY Aspir 81 (Aspirin) 81 Mg Tablet.dr 81 Mg PO DAILY Wellbutrin Sr (Bupropion Hcl) 150 Mg Tablet.er 150 Mg PO DAILY Toprol Xl (Metoprolol Succinate) 25 Mg Tab.er.24h 12 Mg PO DAILY Lasix (Furosemide) 40 Mg Tablet 40 Mg PO DAILY Pravastatin Sodium 40 Mg Tablet 40 Mg PO DAILY Pantoprazole Sodium 40 Mg Tablet.dr 40 Mg PO DAILY Doxycycline Hyclate 100 Mg Capsule 1 Cap PO BID Hydrocodone-Apap 5-325 (Hydrocodone Bit/Acetaminophen) 1 Each Tablet 1-2 Tab PO Q4-6HRS PRN Levothyroxine Sodium 75 Mcg Tablet 1 Tab PO DAILY Citalopram Hbr (Citalopram Hydrobromide) 20 Mg Tablet 20 Mg PO DAILY Losartan Potassium 50 Mg Tablet 50 Mg PO DAILY Metformin Hcl 500 Mg Tablet 1 Tab PO TIDWMEALS Vitals/I & O Vital Sign - Last 24 Hours 02/25/17 02/25/17 02/25/17 02/25/17 15:57 16:56 19:17 19:36 Temp 97.2 97.2 Pulse 75 78 Resp 20 B/P 181/95 162/107 Pulse Ox 93 93 94 O2 Delivery Nasal Cannula Nasal Cannula Nasal Cannula O2 Flow Rate 5.0 5.0 5.0 02/25/17 02/25/17 02/25/17 02/25/17 20:15 23:12 23:33 23:34 Temp 97.6 97.6 Pulse 84 87 88 Resp 18 B/P 191/106 188/110 188/110 Pulse Ox 93 O2 Delivery Nasal Cannula Nasal Cannula O2 Flow Rate 5.0 5.0 02/26/17 02/26/17 02/26/17 02/26/17 03:00 06:00 07:00 07:44 Temp 97.5 97.7 97.5 97.7 Pulse 78 90 82 Resp 20 24 B/P 187/96 186/97 185/110 Pulse Ox 95 90 92 O2 Delivery Nasal Cannula Nasal Cannula Nasal Cannula O2 Flow Rate 5.0 5.0 5.0 02/26/17 02/26/17 02/26/17 02/26/17 07:55 08:28 11:00 11:25 Temp 97.9 97.9 Pulse 80 79 Resp 22 B/P 185/110 172/102 Pulse Ox 91 O2 Delivery Nasal Cannula Nasal Cannula Nasal Cannula O2 Flow Rate 5.0 5.0 5.0 02/26/17 02/26/17 02/26/17 13:10 13:11 15:01 Pulse 79 79 B/P 172/102 172/102 O2 Delivery Nasal Cannula O2 Flow Rate 5.0 Intake and Output 02/25/17 02/25/17 02/26/17 15:00 23:00 07:00 Intake Total 0 ml 240 ml Output Total 400 ml Balance 0 ml -160 ml Nutrition Consultation Dietary Evaluation: Recommendations by RD: PPN/TPN Comments: Pt extubated 02/24 and TF stopped Rec. MVI and 500mg vit c BID to aid wound healing when taking PO meds PPN with procalamine @ 80ml/hr running - would continue for short term nutrition Would consider TF for [facility] nutrition needs if unable to pass swallow eval Expected Outcomes/Goals: diet advancement to meet >75% est nutr needs Malnutrition Findings: Reduced [employer] Strength: N/A Malnutrition related to morbid: No Weight Status: Obese JIL LANGE MD February 26, 2017 15:20
[2017-02-26 19:00] VITALS: BP 160/91
[2017-02-26] MEDS ORDERED: LORAZEPAM 2 MG/ML VIAL. IV ONE (21:00)
[2017-02-26 23:35] VITALS: BP 131/87
[2017-02-27] MEDS: ENALAPRILAT 1.25 MG/ML VIAL. IV SCH ×3 (00:25→12:07)
[2017-02-27] MEDS: METOPROLOL TARTRATE 5 MG/5 ML VIAL. IVP SCH ×3 (00:26→12:07)
[2017-02-27] MEDS: AMINO AC 3%/ELECTROLYTE/GLYCER 1,000 ML IV SCH ×2 (01:45→12:45)
[2017-02-27 02:23] LABS: BASO % 0 % (0-3); EOS % 0 % (0-3); HEMATOCRIT 34.2 % (36.0-47.0); HEMOGLOBIN 10.4 g/dL (12.0-15.5); LYMPH # 0.9 x10^3/uL (1.0-4.8); LYMPH % 8 % (24-48); MEAN CORPUSCULAR HEMOGLOBIN 24 pg (25-35); MEAN CORPUSCULAR HGB CONC 30 g/dL (31-37); MEAN CORPUSCULAR VOLUME 78 fL (79-100); MONO % 8 % (0-9); NEUT % 84 % (31-73); PLATELET COUNT 199 x10^3/uL (140-400); RED BLOOD COUNT 4.41 x10^6/uL (3.50-5.40); RED CELL DISTRIBUTION WIDTH 22.9 % (11.5-14.5); WHITE BLOOD COUNT 11.2 x10^3/uL (4.0-11.0)
[2017-02-27 02:39] LABS: ALBUMIN 2.8 g/dL (3.4-5.0); ALBUMIN/GLOBULIN RATIO 0.9 (1.0-1.7); CALCIUM 8.8 mg/dL (8.5-10.1); CREATININE 0.8 mg/dL (0.6-1.0); GFR 72.7; POTASSIUM 3.9 mmol/L (3.5-5.1); TOTAL BILIRUBIN 2.7 mg/dL (0.2-1.0)
[2017-02-27 02:46] LABS: ANISOCYTOSIS MOD; HYPOCHROMIA SLIGHT; PLT ESTIMATE ADEQUATE (ADEQUATE); POIKILOCYTOSIS SLIGHT; POLYCHROMASIA SLIGHT
[2017-02-27 02:47] LABS: TARGET CELLS OCC
[2017-02-27] MEDS: LABETALOL 20 MG/4 ML DISP.SYRIN. IVP PRN ×2 (02:48→15:33)
[2017-02-27 03:04] VITALS: BP 186/99
[2017-02-27] MEDS: INSULIN ASPART 300 UNITS/3 ML INSULN.PEN SQ SCH ×3 (06:00→12:00)
[2017-02-27 07:00] VITALS: BP 155/92
[2017-02-27] MEDS: IPRATRPIUM/ALBUTEROL 0.5/2.5MG 3 ML NEBU. NEB SCH ×3 (07:22→15:30)
[2017-02-27] MEDS: ASPIRIN CHEWABLE 81 MG TABLET. PO SCH (08:00)
[2017-02-27] MEDS: buPROPion 75 MG TABLET. PO SCH (09:00)
[2017-02-27] MEDS: CITALOPRAM 20 MG TABLET. NG SCH (09:00)
--- NOTE | 2017-02-27 09:47 | PDOC ---
CARDIO Progress Notes Date and Time Date of Service 02/27/2017 Time of Evaluation 0940 Subjective Subjective: No Chest Pain, No Palpitations, No Dizziness, Other (feels weak and slightly SOA) Vitals Vitals Vital Signs Date Time Temp Pulse Resp B/P (MAP) Pulse Ox O2 Delivery O2 Flow Rate FiO2 02/27/17 07:25 98 Simple Mask 6.0 02/27/17 07:23 93 186/99 02/27/17 07:00 98.7 28 98.7 Weight Weight [ ] Input and Output Intake and Output Intake and Output 02/27/17 07:00 Intake Total 412 ml Balance 412 ml Intake Oral 0 ml IV Total 412 ml # Voids 6 # Bowel Movements 1 Laboratory Labs Laboratory Tests Test 02/26/17 11:51 02/26/17 16:58 02/26/17 20:21 02/27/17 02:05 Glucose (Fingerstick) 124 mg/dL (70-99) 133 mg/dL (70-99) 136 mg/dL (70-99) White Blood Count 11.2 x10^3/uL (4.0-11.0) Red Blood Count 4.41 x10^6/uL (3.50-5.40) Hemoglobin 10.4 g/dL (12.0-15.5) Hematocrit 34.2 % (36.0-47.0) Mean Corpuscular Volume 78 fL (79-100) Mean Corpuscular Hemoglobin 24 pg (25-35) Mean Corpuscular Hemoglobin Concent 30 g/dL (31-37) Red Cell Distribution Width 22.9 % (11.5-14.5) Platelet Count 199 x10^3/uL (140-400) Neutrophils (%) (Auto) 84 % (31-73) Lymphocytes (%) (Auto) 8 % (24-48) Monocytes (%) (Auto) 8 % (0-9) Eosinophils (%) (Auto) 0 % (0-3) Basophils (%) (Auto) 0 % (0-3) Neutrophils # (Auto) 9.3 x10^3uL (1.8-7.7) Lymphocytes # (Auto) 0.9 x10^3/uL (1.0-4.8) Monocytes # (Auto) 0.9 x10^3/uL (0.0-1.1) Eosinophils # (Auto) 0.0 x10^3/uL (0.0-0.7) Basophils # (Auto) 0.0 x10^3/uL (0.0-0.2) Segmented Neutrophils % 79 % (35-66) Band Neutrophils % 2 % (0-9) Lymphocytes % 11 % (24-48) Monocytes % 6 % (0-10) Metamyelocytes % 2 % (0-0) Platelet Estimate Adequate (ADEQUATE) Polychromasia Slight Hypochromasia Slight Poikilocytosis Slight Anisocytosis Mod Target Cells Occ Sodium Level 142 mmol/L (136-145) Potassium Level 3.9 mmol/L (3.5-5.1) Chloride Level 103 mmol/L (98-107) Carbon Dioxide Level 29 mmol/L (21-32) Anion Gap 10 (6-14) Blood Urea Nitrogen 37 mg/dL (7-20) Creatinine 0.8 mg/dL (0.6-1.0) Estimated GFR (Cockcroft-Gault) 72.7 BUN/Creatinine Ratio 46 (6-20) Glucose Level 168 mg/dL (70-99) Calcium Level 8.8 mg/dL (8.5-10.1) Total Bilirubin 2.7 mg/dL (0.2-1.0) Aspartate Amino Transf (AST/SGOT) 65 U/L (15-37) Alanine Aminotransferase (ALT/SGPT) 91 U/L (14-59) Alkaline Phosphatase 114 U/L (46-116) Total Protein 6.0 g/dL (6.4-8.2) Albumin 2.8 g/dL (3.4-5.0) Albumin/Globulin Ratio 0.9 (1.0-1.7) Microbiology Micro Microbiology 02/18/17 Urine Culture - Final, Complete 02/18/17 Urine Culture Result 1 (NORBERTO) - Final, Complete Physical Exam HEENT: Neck Supple W Full Motion, Other (dysphonia) Chest: Symmetric LUNGS: Other (bibasilar crackles) Heart: S1S2, RRR (SR no ectopies), other (distant heart tones ) Abdomen: Soft N/T Extremities: Other (2-3+ bilateral LE pitting edema; right arm ecchymoses) Neurology: alert, oriented, follow commands Assessment Assessment 1. Multiorgan failure with sepsis: Significant improvement 2. NSTEMI: Peaked trop 31 prompting [facility], 02/25/2017 with patent radial artery graft to PDA/RCA and patent MCCLAIN/FIGUEROA 'T' graft to LAD/LCx. EF 60%. Demand mediated due to #1. 3. CAD: S/P CABG 04/30/16 with graft patency noted above. 4. Acute on chronic respiratory failure: extubated 2 days ago. pulmonary following 5. Dysphagia/Dysphonia: Failed swallow study 6. DM2/HLP 7. HTN: labile 8. Right arm ecchymoses: Unchanged. Suspect from frequent BP monitoring. Recommendations 1. Continue with IV lopressor/vasotec. Labetolol IV PRN. If BP remains labile then will start on transdermal nitrates. 2. Nutritional support. Hyperalimentation at least procalamine while NPO?. Defer to PCP 3. PO Secondary prevention to commence once she passes her swallow study 4. PCXR today ELY CHURCH APRN February 27, 2017 09:47
--- NOTE | 2017-02-27 10:19 | PDOC ---
Subjective: Subjective: Working w/ therapy. Increased SOA. Objective: Objective: D/w TOOLMAN yesterday, cardiology and therapy today. CXR ordered. Vital Signs: Vital Signs Date Time Temp Pulse Resp B/P (MAP) Pulse Ox O2 Delivery O2 Flow Rate FiO2 02/27/17 07:25 98 Simple Mask 6.0 02/27/17 07:23 93 186/99 02/27/17 07:00 98.7 28 98.7 Labs: Laboratory Tests Test 02/26/17 11:51 02/26/17 16:58 02/26/17 20:21 02/27/17 02:05 Glucose (Fingerstick) 124 mg/dL 133 mg/dL 136 mg/dL White Blood Count 11.2 x10^3/uL Red Blood Count 4.41 x10^6/uL Hemoglobin 10.4 g/dL Hematocrit 34.2 % Mean Corpuscular Volume 78 fL Mean Corpuscular Hemoglobin 24 pg Mean Corpuscular Hemoglobin Concent 30 g/dL Red Cell Distribution Width 22.9 % Platelet Count 199 x10^3/uL Neutrophils (%) (Auto) 84 % Lymphocytes (%) (Auto) 8 % Monocytes (%) (Auto) 8 % Eosinophils (%) (Auto) 0 % Basophils (%) (Auto) 0 % Neutrophils # (Auto) 9.3 x10^3uL Lymphocytes # (Auto) 0.9 x10^3/uL Monocytes # (Auto) 0.9 x10^3/uL Eosinophils # (Auto) 0.0 x10^3/uL Basophils # (Auto) 0.0 x10^3/uL Segmented Neutrophils % 79 % Band Neutrophils % 2 % Lymphocytes % 11 % Monocytes % 6 % Metamyelocytes % 2 % Platelet Estimate Adequate Polychromasia Slight Hypochromasia Slight Poikilocytosis Slight Anisocytosis Mod Target Cells Occ Sodium Level 142 mmol/L Potassium Level 3.9 mmol/L Chloride Level 103 mmol/L Carbon Dioxide Level 29 mmol/L Anion Gap 10 Blood Urea Nitrogen 37 mg/dL Creatinine 0.8 mg/dL Estimated GFR (Cockcroft-Gault) 72.7 BUN/Creatinine Ratio 46 Glucose Level 168 mg/dL Calcium Level 8.8 mg/dL Total Bilirubin 2.7 mg/dL Aspartate Amino Transf (AST/SGOT) 65 U/L Alanine Aminotransferase (ALT/SGPT) 91 U/L Alkaline Phosphatase 114 U/L Total Protein 6.0 g/dL Albumin 2.8 g/dL Albumin/Globulin Ratio 0.9 PE: GEN: NAD, hoarse, sitting on edge of bed LUNGS: crackles, tachypneic HEART: tachycardic ABD: S/ND/NT NEURO/PSYCH: A & O 3 A/P: NSTEMI, resp failure, dysphagia (after extubation) -NPO, TOOLMAN following Gastroparesis SOA HOSSEIN -recent EGD and colonoscopy unrevealing Abnormal LFTs -reviewed abd US from 02/17 -- Await CXR, follow TOOLMAN evals. JF CENTENO February 27, 2017 10:19
[2017-02-27] MEDS: PANTOPRAZOLE IV PUSH 40 MG VIAL. IVP SCH (10:53)
[2017-02-27] MEDS: HYDROCORTISONE SOD SUCC/PF 100 MG/2 ML VIAL. IV SCH (10:53)
--- NOTE | 2017-02-27 10:57 | PDOC ---
PULMONARY PROGRESS NOTES Subjective extubated 02/24 weak Vitals Vital Signs Date Time Temp Pulse Resp B/P (MAP) Pulse Ox O2 Delivery O2 Flow Rate FiO2 02/27/17 07:25 98 Simple Mask 6.0 02/27/17 07:23 93 186/99 02/27/17 07:00 98.7 28 98.7 General: Alert, No acute distress Lungs: Clear Cardiovascular: S1, S2 Abdomen: Soft Extremities: Other (1+edema) Skin: Warm Labs Laboratory Tests Test 02/25/17 11:43 02/25/17 17:01 02/25/17 18:43 02/25/17 20:55 Glucose (Fingerstick) 70 mg/dL (70-99) 75 mg/dL (70-99) 65 mg/dL (70-99) 77 mg/dL (70-99) Test 02/26/17 06:30 02/26/17 07:37 02/26/17 11:51 02/26/17 16:58 White Blood Count 13.0 x10^3/uL (4.0-11.0) Red Blood Count 4.62 x10^6/uL (3.50-5.40) Hemoglobin 10.9 g/dL (12.0-15.5) Hematocrit 35.5 % (36.0-47.0) Mean Corpuscular Volume 77 fL (79-100) Mean Corpuscular Hemoglobin 24 pg (25-35) Mean Corpuscular Hemoglobin Concent 31 g/dL (31-37) Red Cell Distribution Width 23.3 % (11.5-14.5) Platelet Count 221 x10^3/uL (140-400) Neutrophils (%) (Auto) 80 % (31-73) Lymphocytes (%) (Auto) 9 % (24-48) Monocytes (%) (Auto) 11 % (0-9) Eosinophils (%) (Auto) 0 % (0-3) Basophils (%) (Auto) 0 % (0-3) Neutrophils # (Auto) 10.4 x10^3uL (1.8-7.7) Lymphocytes # (Auto) 1.2 x10^3/uL (1.0-4.8) Monocytes # (Auto) 1.4 x10^3/uL (0.0-1.1) Eosinophils # (Auto) 0.0 x10^3/uL (0.0-0.7) Basophils # (Auto) 0.0 x10^3/uL (0.0-0.2) Sodium Level 143 mmol/L (136-145) Potassium Level 3.5 mmol/L (3.5-5.1) Chloride Level 103 mmol/L (98-107) Carbon Dioxide Level 31 mmol/L (21-32) Anion Gap 9 (6-14) Blood Urea Nitrogen 35 mg/dL (7-20) Creatinine 0.8 mg/dL (0.6-1.0) Estimated GFR (Cockcroft-Gault) 72.7 Glucose Level 143 mg/dL (70-99) Calcium Level 8.7 mg/dL (8.5-10.1) Magnesium Level 1.9 mg/dL (1.8-2.4) Creatine Kinase 136 U/L (26-192) Glucose (Fingerstick) 147 mg/dL (70-99) 124 mg/dL (70-99) 133 mg/dL (70-99) Test 02/26/17 20:21 02/27/17 02:05 Glucose (Fingerstick) 136 mg/dL (70-99) White Blood Count 11.2 x10^3/uL (4.0-11.0) Red Blood Count 4.41 x10^6/uL (3.50-5.40) Hemoglobin 10.4 g/dL (12.0-15.5) Hematocrit 34.2 % (36.0-47.0) Mean Corpuscular Volume 78 fL (79-100) Mean Corpuscular Hemoglobin 24 pg (25-35) Mean Corpuscular Hemoglobin Concent 30 g/dL (31-37) Red Cell Distribution Width 22.9 % (11.5-14.5) Platelet Count 199 x10^3/uL (140-400) Neutrophils (%) (Auto) 84 % (31-73) Lymphocytes (%) (Auto) 8 % (24-48) Monocytes (%) (Auto) 8 % (0-9) Eosinophils (%) (Auto) 0 % (0-3) Basophils (%) (Auto) 0 % (0-3) Neutrophils # (Auto) 9.3 x10^3uL (1.8-7.7) Lymphocytes # (Auto) 0.9 x10^3/uL (1.0-4.8) Monocytes # (Auto) 0.9 x10^3/uL (0.0-1.1) Eosinophils # (Auto) 0.0 x10^3/uL (0.0-0.7) Basophils # (Auto) 0.0 x10^3/uL (0.0-0.2) Segmented Neutrophils % 79 % (35-66) Band Neutrophils % 2 % (0-9) Lymphocytes % 11 % (24-48) Monocytes % 6 % (0-10) Metamyelocytes % 2 % (0-0) Platelet Estimate Adequate (ADEQUATE) Polychromasia Slight Hypochromasia Slight Poikilocytosis Slight Anisocytosis Mod Target Cells Occ Sodium Level 142 mmol/L (136-145) Potassium Level 3.9 mmol/L (3.5-5.1) Chloride Level 103 mmol/L (98-107) Carbon Dioxide Level 29 mmol/L (21-32) Anion Gap 10 (6-14) Blood Urea Nitrogen 37 mg/dL (7-20) Creatinine 0.8 mg/dL (0.6-1.0) Estimated GFR (Cockcroft-Gault) 72.7 BUN/Creatinine Ratio 46 (6-20) Glucose Level 168 mg/dL (70-99) Calcium Level 8.8 mg/dL (8.5-10.1) Total Bilirubin 2.7 mg/dL (0.2-1.0) Aspartate Amino Transf (AST/SGOT) 65 U/L (15-37) Alanine Aminotransferase (ALT/SGPT) 91 U/L (14-59) Alkaline Phosphatase 114 U/L (46-116) Total Protein 6.0 g/dL (6.4-8.2) Albumin 2.8 g/dL (3.4-5.0) Albumin/Globulin Ratio 0.9 (1.0-1.7) Laboratory Tests Test 02/26/17 11:51 02/26/17 16:58 02/26/17 20:21 02/27/17 02:05 Glucose (Fingerstick) 124 mg/dL (70-99) 133 mg/dL (70-99) 136 mg/dL (70-99) White Blood Count 11.2 x10^3/uL (4.0-11.0) Red Blood Count 4.41 x10^6/uL (3.50-5.40) Hemoglobin 10.4 g/dL (12.0-15.5) Hematocrit 34.2 % (36.0-47.0) Mean Corpuscular Volume 78 fL (79-100) Mean Corpuscular Hemoglobin 24 pg (25-35) Mean Corpuscular Hemoglobin Concent 30 g/dL (31-37) Red Cell Distribution Width 22.9 % (11.5-14.5) Platelet Count 199 x10^3/uL (140-400) Neutrophils (%) (Auto) 84 % (31-73) Lymphocytes (%) (Auto) 8 % (24-48) Monocytes (%) (Auto) 8 % (0-9) Eosinophils (%) (Auto) 0 % (0-3) Basophils (%) (Auto) 0 % (0-3) Neutrophils # (Auto) 9.3 x10^3uL (1.8-7.7) Lymphocytes # (Auto) 0.9 x10^3/uL (1.0-4.8) Monocytes # (Auto) 0.9 x10^3/uL (0.0-1.1) Eosinophils # (Auto) 0.0 x10^3/uL (0.0-0.7) Basophils # (Auto) 0.0 x10^3/uL (0.0-0.2) Segmented Neutrophils % 79 % (35-66) Band Neutrophils % 2 % (0-9) Lymphocytes % 11 % (24-48) Monocytes % 6 % (0-10) Metamyelocytes % 2 % (0-0) Platelet Estimate Adequate (ADEQUATE) Polychromasia Slight Hypochromasia Slight Poikilocytosis Slight Anisocytosis Mod Target Cells Occ Sodium Level 142 mmol/L (136-145) Potassium Level 3.9 mmol/L (3.5-5.1) Chloride Level 103 mmol/L (98-107) Carbon Dioxide Level 29 mmol/L (21-32) Anion Gap 10 (6-14) Blood Urea Nitrogen 37 mg/dL (7-20) Creatinine 0.8 mg/dL (0.6-1.0) Estimated GFR (Cockcroft-Gault) 72.7 BUN/Creatinine Ratio 46 (6-20) Glucose Level 168 mg/dL (70-99) Calcium Level 8.8 mg/dL (8.5-10.1) Total Bilirubin 2.7 mg/dL (0.2-1.0) Aspartate Amino Transf (AST/SGOT) 65 U/L (15-37) Alanine Aminotransferase (ALT/SGPT) 91 U/L (14-59) Alkaline Phosphatase 114 U/L (46-116) Total Protein 6.0 g/dL (6.4-8.2) Albumin 2.8 g/dL (3.4-5.0) Albumin/Globulin Ratio 0.9 (1.0-1.7) Medications Active Scripts Medications Dose Route/Sig Days Date Category Requip (Ropinirole Hcl) 1 Mg Tablet 4 Mg PO DAILY 02/14/17 Reported Aspir 81 (Aspirin) 81 Mg Tablet.dr 81 Mg PO DAILY 02/14/17 Reported Wellbutrin Sr (Bupropion Hcl) 150 Mg Tablet.er 150 Mg PO DAILY 02/14/17 Reported Toprol Xl (Metoprolol Succinate) 25 Mg Tab.er.24h 12 Mg PO DAILY 02/14/17 Reported Lasix (Furosemide) 40 Mg Tablet 40 Mg PO DAILY 02/14/17 Reported Pravastatin Sodium 40 Mg Tablet 40 Mg PO DAILY 02/14/17 Reported Pantoprazole Sodium 40 Mg Tablet.dr 40 Mg PO DAILY 02/14/17 Reported [place] 7.5-325 Tablet (Acetaminophen/Hydrocodone Bitart) 1 Each Tablet 1 Tab PO PRN Q6HRS PRN 12/06/14 Rx Doxycycline Hyclate 100 Mg Capsule 1 Cap PO BID 12/06/14 Reported Hydrocodone-Apap 5-325 (Hydrocodone Bit/Acetaminophen) 1 Each Tablet 1-2 Tab PO Q4-6HRS PRN 12/06/14 Reported Levothyroxine Sodium 75 Mcg Tablet 1 Tab PO DAILY 12/05/14 Reported Citalopram Hbr (Citalopram Hydrobromide) 20 Mg Tablet 20 Mg PO DAILY 12/05/14 Reported Losartan Potassium 50 Mg Tablet 50 Mg PO DAILY 12/05/14 Reported Metformin Hcl 500 Mg Tablet 1 Tab PO TIDWMEALS 12/05/14 Reported Comments cxr no change Impression . 1. Acute respiratory failure secondary to SEPTIC SHOCK, resolved, extubated 02/24 2. SEPTIC SHOCK, resolved 3. Acute renal failure, improved no further HD needed 4. 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 Not been on chronic steroids. 5. Marked anion gap metabolic acidosis secondary to septic shock./renal failure , improved 6. Non-ST myocardial infarction. s/p cath 7. Nutrition ,on tube feeding 8. Abnormal cxr sec to old ILD Plan . 1. Nasal canula 2. antibiotics, per ID 3. PPN / speech follow up 4. off Hemodialysis per nephro 5. Chest x-ray, follow up as needed 6. E coli UTI/ antibiotic per ID 8. DVT prophylaxis. 9. Stress ulcer prophylaxis.speech eval/ PT consult 10. taper Hydrocortisone 11. Echo report NOTED 12. cath note reviewed. medical treatment COLETTE HARDIN MD February 27, 2017 10:57
[2017-02-27 11:00] VITALS: BP 189/98
[2017-02-27] MEDS ORDERED: NITROGLYCERIN OINT 1 GM PACKET. TP SCH (12:00)
[2017-02-27] MEDS: LEVOTHYROXINE SODIUM 37.5 MCG in IV NORMAL SALINE 50ML 5 ML IVP SCH (12:03)
--- NOTE | 2017-02-27 12:27 | PDOC ---
PROGRESS NOTES Chief Complaint Chief Complaint cc: Respiratory failure, acute -Pulmonary fibrosis -Acute renal failure -DM -CHF, chronic -CABG w. CAD -NSTEMI -tobacco use d/o -HLD -HTN -FREDY -Obesity -Constipation -GERD -Hypothyroidism -Anxiety -Hepatitis A History of Present Illness History of Present Illness frustrated she DECLINED DOBHOFF today, had declined yesterday also, I discussed as the best options. She is not getting her depression meds long-term plan discussed She has been extubated. She will have a cardiac cath today and a swallow study. We discussed the case with her nurse. TO LTAC Vitals Vitals Vital Signs Date Time Temp Pulse Resp B/P (MAP) Pulse Ox O2 Delivery O2 Flow Rate FiO2 02/27/17 12:07 88 189/98 02/27/17 11:04 18 93 Nasal Cannula 6.0 02/27/17 07:00 98.7 98.7 Physical Exam General: Alert, Cooperative, No acute distress Heart: Regular rate, Normal S1, Normal S2 Lungs: Clear Abdomen: No hepatosplenomegaly, No masses Extremities: No cyanosis, Normal pulses Skin: No rashes, No breakdown Labs LABS Laboratory Tests Test 02/26/17 16:58 02/26/17 20:21 02/27/17 02:05 02/27/17 08:28 Glucose (Fingerstick) 133 mg/dL (70-99) 136 mg/dL (70-99) 182 mg/dL (70-99) White Blood Count 11.2 x10^3/uL (4.0-11.0) Red Blood Count 4.41 x10^6/uL (3.50-5.40) Hemoglobin 10.4 g/dL (12.0-15.5) Hematocrit 34.2 % (36.0-47.0) Mean Corpuscular Volume 78 fL (79-100) Mean Corpuscular Hemoglobin 24 pg (25-35) Mean Corpuscular Hemoglobin Concent 30 g/dL (31-37) Red Cell Distribution Width 22.9 % (11.5-14.5) Platelet Count 199 x10^3/uL (140-400) Neutrophils (%) (Auto) 84 % (31-73) Lymphocytes (%) (Auto) 8 % (24-48) Monocytes (%) (Auto) 8 % (0-9) Eosinophils (%) (Auto) 0 % (0-3) Basophils (%) (Auto) 0 % (0-3) Neutrophils # (Auto) 9.3 x10^3uL (1.8-7.7) Lymphocytes # (Auto) 0.9 x10^3/uL (1.0-4.8) Monocytes # (Auto) 0.9 x10^3/uL (0.0-1.1) Eosinophils # (Auto) 0.0 x10^3/uL (0.0-0.7) Basophils # (Auto) 0.0 x10^3/uL (0.0-0.2) Segmented Neutrophils % 79 % (35-66) Band Neutrophils % 2 % (0-9) Lymphocytes % 11 % (24-48) Monocytes % 6 % (0-10) Metamyelocytes % 2 % (0-0) Platelet Estimate Adequate (ADEQUATE) Polychromasia Slight Hypochromasia Slight Poikilocytosis Slight Anisocytosis Mod Target Cells Occ Sodium Level 142 mmol/L (136-145) Potassium Level 3.9 mmol/L (3.5-5.1) Chloride Level 103 mmol/L (98-107) Carbon Dioxide Level 29 mmol/L (21-32) Anion Gap 10 (6-14) Blood Urea Nitrogen 37 mg/dL (7-20) Creatinine 0.8 mg/dL (0.6-1.0) Estimated GFR (Cockcroft-Gault) 72.7 BUN/Creatinine Ratio 46 (6-20) Glucose Level 168 mg/dL (70-99) Calcium Level 8.8 mg/dL (8.5-10.1) Total Bilirubin 2.7 mg/dL (0.2-1.0) Aspartate Amino Transf (AST/SGOT) 65 U/L (15-37) Alanine Aminotransferase (ALT/SGPT) 91 U/L (14-59) Alkaline Phosphatase 114 U/L (46-116) Total Protein 6.0 g/dL (6.4-8.2) Albumin 2.8 g/dL (3.4-5.0) Albumin/Globulin Ratio 0.9 (1.0-1.7) Test 02/27/17 11:33 Glucose (Fingerstick) 193 mg/dL (70-99) Assessment and Plan Assessmemt and Plan DC to LTAC Problems Medical Problems: (1) ARF (acute renal failure) Status: Acute (2) Cardiac failure Status: Acute (3) Hypoxia Status: Acute (4) Respiratory failure Status: Acute Problems: Comment Review of Relevant I have reviewed the following items trey (where applicable) has been applied. Labs Laboratory Tests Test 02/25/17 17:01 02/25/17 18:43 02/25/17 20:55 02/26/17 06:30 Glucose (Fingerstick) 75 mg/dL (70-99) 65 mg/dL (70-99) 77 mg/dL (70-99) White Blood Count 13.0 x10^3/uL (4.0-11.0) Red Blood Count 4.62 x10^6/uL (3.50-5.40) Hemoglobin 10.9 g/dL (12.0-15.5) Hematocrit 35.5 % (36.0-47.0) Mean Corpuscular Volume 77 fL (79-100) Mean Corpuscular Hemoglobin 24 pg (25-35) Mean Corpuscular Hemoglobin Concent 31 g/dL (31-37) Red Cell Distribution Width 23.3 % (11.5-14.5) Platelet Count 221 x10^3/uL (140-400) Neutrophils (%) (Auto) 80 % (31-73) Lymphocytes (%) (Auto) 9 % (24-48) Monocytes (%) (Auto) 11 % (0-9) Eosinophils (%) (Auto) 0 % (0-3) Basophils (%) (Auto) 0 % (0-3) Neutrophils # (Auto) 10.4 x10^3uL (1.8-7.7) Lymphocytes # (Auto) 1.2 x10^3/uL (1.0-4.8) Monocytes # (Auto) 1.4 x10^3/uL (0.0-1.1) Eosinophils # (Auto) 0.0 x10^3/uL (0.0-0.7) Basophils # (Auto) 0.0 x10^3/uL (0.0-0.2) Sodium Level 143 mmol/L (136-145) Potassium Level 3.5 mmol/L (3.5-5.1) Chloride Level 103 mmol/L (98-107) Carbon Dioxide Level 31 mmol/L (21-32) Anion Gap 9 (6-14) Blood Urea Nitrogen 35 mg/dL (7-20) Creatinine 0.8 mg/dL (0.6-1.0) Estimated GFR (Cockcroft-Gault) 72.7 Glucose Level 143 mg/dL (70-99) Calcium Level 8.7 mg/dL (8.5-10.1) Magnesium Level 1.9 mg/dL (1.8-2.4) Creatine Kinase 136 U/L (26-192) Test 02/26/17 07:37 02/26/17 11:51 02/26/17 16:58 02/26/17 20:21 Glucose (Fingerstick) 147 mg/dL (70-99) 124 mg/dL (70-99) 133 mg/dL (70-99) 136 mg/dL (70-99) Test 02/27/17 02:05 02/27/17 08:28 02/27/17 11:33 White Blood Count 11.2 x10^3/uL (4.0-11.0) Red Blood Count 4.41 x10^6/uL (3.50-5.40) Hemoglobin 10.4 g/dL (12.0-15.5) Hematocrit 34.2 % (36.0-47.0) Mean Corpuscular Volume 78 fL (79-100) Mean Corpuscular Hemoglobin 24 pg (25-35) Mean Corpuscular Hemoglobin Concent 30 g/dL (31-37) Red Cell Distribution Width 22.9 % (11.5-14.5) Platelet Count 199 x10^3/uL (140-400) Neutrophils (%) (Auto) 84 % (31-73) Lymphocytes (%) (Auto) 8 % (24-48) Monocytes (%) (Auto) 8 % (0-9) Eosinophils (%) (Auto) 0 % (0-3) Basophils (%) (Auto) 0 % (0-3) Neutrophils # (Auto) 9.3 x10^3uL (1.8-7.7) Lymphocytes # (Auto) 0.9 x10^3/uL (1.0-4.8) Monocytes # (Auto) 0.9 x10^3/uL (0.0-1.1) Eosinophils # (Auto) 0.0 x10^3/uL (0.0-0.7) Basophils # (Auto) 0.0 x10^3/uL (0.0-0.2) Segmented Neutrophils % 79 % (35-66) Band Neutrophils % 2 % (0-9) Lymphocytes % 11 % (24-48) Monocytes % 6 % (0-10) Metamyelocytes % 2 % (0-0) Platelet Estimate Adequate (ADEQUATE) Polychromasia Slight Hypochromasia Slight Poikilocytosis Slight Anisocytosis Mod Target Cells Occ Sodium Level 142 mmol/L (136-145) Potassium Level 3.9 mmol/L (3.5-5.1) Chloride Level 103 mmol/L (98-107) Carbon Dioxide Level 29 mmol/L (21-32) Anion Gap 10 (6-14) Blood Urea Nitrogen 37 mg/dL (7-20) Creatinine 0.8 mg/dL (0.6-1.0) Estimated GFR (Cockcroft-Gault) 72.7 BUN/Creatinine Ratio 46 (6-20) Glucose Level 168 mg/dL (70-99) Calcium Level 8.8 mg/dL (8.5-10.1) Total Bilirubin 2.7 mg/dL (0.2-1.0) Aspartate Amino Transf (AST/SGOT) 65 U/L (15-37) Alanine Aminotransferase (ALT/SGPT) 91 U/L (14-59) Alkaline Phosphatase 114 U/L (46-116) Total Protein 6.0 g/dL (6.4-8.2) Albumin 2.8 g/dL (3.4-5.0) Albumin/Globulin Ratio 0.9 (1.0-1.7) Glucose (Fingerstick) 182 mg/dL (70-99) 193 mg/dL (70-99) Laboratory Tests Test 02/26/17 16:58 02/26/17 20:21 02/27/17 02:05 02/27/17 08:28 Glucose (Fingerstick) 133 mg/dL (70-99) 136 mg/dL (70-99) 182 mg/dL (70-99) White Blood Count 11.2 x10^3/uL (4.0-11.0) Red Blood Count 4.41 x10^6/uL (3.50-5.40) Hemoglobin 10.4 g/dL (12.0-15.5) Hematocrit 34.2 % (36.0-47.0) Mean Corpuscular Volume 78 fL (79-100) Mean Corpuscular Hemoglobin 24 pg (25-35) Mean Corpuscular Hemoglobin Concent 30 g/dL (31-37) Red Cell Distribution Width 22.9 % (11.5-14.5) Platelet Count 199 x10^3/uL (140-400) Neutrophils (%) (Auto) 84 % (31-73) Lymphocytes (%) (Auto) 8 % (24-48) Monocytes (%) (Auto) 8 % (0-9) Eosinophils (%) (Auto) 0 % (0-3) Basophils (%) (Auto) 0 % (0-3) Neutrophils # (Auto) 9.3 x10^3uL (1.8-7.7) Lymphocytes # (Auto) 0.9 x10^3/uL (1.0-4.8) Monocytes # (Auto) 0.9 x10^3/uL (0.0-1.1) Eosinophils # (Auto) 0.0 x10^3/uL (0.0-0.7) Basophils # (Auto) 0.0 x10^3/uL (0.0-0.2) Segmented Neutrophils % 79 % (35-66) Band Neutrophils % 2 % (0-9) Lymphocytes % 11 % (24-48) Monocytes % 6 % (0-10) Metamyelocytes % 2 % (0-0) Platelet Estimate Adequate (ADEQUATE) Polychromasia Slight Hypochromasia Slight Poikilocytosis Slight Anisocytosis Mod Target Cells Occ Sodium Level 142 mmol/L (136-145) Potassium Level 3.9 mmol/L (3.5-5.1) Chloride Level 103 mmol/L (98-107) Carbon Dioxide Level 29 mmol/L (21-32) Anion Gap 10 (6-14) Blood Urea Nitrogen 37 mg/dL (7-20) Creatinine 0.8 mg/dL (0.6-1.0) Estimated GFR (Cockcroft-Gault) 72.7 BUN/Creatinine Ratio 46 (6-20) Glucose Level 168 mg/dL (70-99) Calcium Level 8.8 mg/dL (8.5-10.1) Total Bilirubin 2.7 mg/dL (0.2-1.0) Aspartate Amino Transf (AST/SGOT) 65 U/L (15-37) Alanine Aminotransferase (ALT/SGPT) 91 U/L (14-59) Alkaline Phosphatase 114 U/L (46-116) Total Protein 6.0 g/dL (6.4-8.2) Albumin 2.8 g/dL (3.4-5.0) Albumin/Globulin Ratio 0.9 (1.0-1.7) Test 02/27/17 11:33 Glucose (Fingerstick) 193 mg/dL (70-99) Microbiology 02/18/17 Urine Culture - Final, Complete 02/18/17 Urine Culture Result 1 (NORBERTO) - Final, Complete Medications Current Medications Sodium Polystyrene Sulfonate (Kayexalate) 30 gm 1X ONCE PO Last administered on 02/17/17 03:54; Start 02/17/17 at 02:45; Stop 02/17/17 at 02:46; Status DC Ondansetron HCl (Zofran) 4 mg PRN Q6HRS PRN IV NAUSEA/VOMITING; Start 02/17/17 at 02:00 Pantoprazole Sodium (Protonix Vial) 40 mg TID IVP Last administered on 08:56; Start 02/17/17 at 09:00; Stop 02/17/17 at 13:17; Status DC Acetaminophen (Tylenol) 650 mg PRN Q6HRS PRN PO FEVER; Start 02/17/17 at 02:00 Midazolam HCl 100 ml @ 0 mls/hr CONT PRN IV SEE I/O RECORD Last administered on 02/17/17 20:34; Start 02/17/17 at 02:30; Stop 02/26/17 at 12:19; Status DC Levothyroxine Sodium 37.5 mcg/ Sodium Chloride 5 ml @ 100 mls/hr DAILY IVP Last administered on 02/27/17 12:03; Start 02/17/17 at 09:00 Sodium Chloride 1,000 ml @ 100 mls/hr 1X ONCE IV Last administered on 04:25; Start 02/17/17 at 04:30; Stop 02/17/17 at 11:25; Status DC Sodium Chloride 1,000 ml @ 100 mls/hr 1X ONCE IV Last administered on 04:25; Start 02/17/17 at 04:30; Stop 02/18/17 at 09:15; Status DC Pneumococcal Polyvalent Vaccine (Do NOT chart on this placeholder) 1 each 1X ONCE MC ; Start 02/17/17 at 06:00; Stop 02/17/17 at 06:01; Status UNV Pneumococcal Polyvalent Vaccine (Pneumovax 23) 0.5 ml ONCE ONCE VAX IM ; Start 02/17/17 at 09:00; Stop 02/17/17 at 09:01; Status DC Norepinephrine Bitartrate 250 ml @ 0 mls/hr CONT PRN IV SEE I/O RECORD Last administered on 02/18/17 11:15; Start 02/17/17 at 06:15; Stop 02/26/17 at 12:20 ; Status DC Sodium Chloride 1,000 ml @ 1,000 mls/hr 1X ONCE IV Last administered on 08:56; Start 02/17/17 at 08:15; Stop 02/17/17 at 09:14; Status DC Piperacillin Sod/ Tazobactam Sod 2.25 gm/Sodium Chloride 50 ml @ 100 mls/hr Q8HRS IV Last administered on 02/24/17 06:33; Start 02/17/17 at 08:45; Stop 02/24/17 at 09:48; Status DC Magnesium Sulfate/ Dextrose 50 ml @ 25 mls/hr 1X ONCE IV Last administered on 02/17/17 09:30; Start 02/17/17 at 09:00; Stop 02/17/17 at 10:59; Status DC Fentanyl Citrate (Fentanyl 2ml Vial) 50 mcg PRN Q2HR PRN IV PAIN Last administered on 02/24/17 21:47; Start 02/17/17 at 09:00 Sodium Chloride 1,000 ml @ 1,000 mls/hr 1X ONCE IV Last administered on 08:57; Start 02/17/17 at 09:00; Stop 02/17/17 at 09:59; Status DC Heparin Sodium (Porcine) (Heparin Sodium) 10,000 unit STK-MED ONCE .ROUTE ; Start 02/17/17 at 09:23; Stop 02/17/17 at 09:24; Status DC Lidocaine/Sodium Bicarbonate (Buffered Lidocaine 1%) 20 ml STK-MED ONCE IJ ; Start 02/17/17 at 09:23; Stop 02/17/17 at 09:24; Status DC Heparin Sodium/ Sodium Chloride 500 ml @ As Directed STK-MED ONCE .ROUTE ; Start 02/17/17 at 09:23; Stop 02/17/17 at 09:24; Status DC Lidocaine/Sodium Bicarbonate (Buffered Lidocaine 1%) 3 ml 1X ONCE IJ ; Start at 09:30; Stop 02/17/17 at 09:35; Status DC Heparin Sodium/ Sodium Chloride 60 unit 1X ONCE IV ; Start 02/17/17 at 09:30; Stop 02/17/17 at 09:35; Status DC Heparin Sodium (Porcine) (Heparin Sodium) 2,500 unit 1X ONCE INT CAT ; Start at 09:30; Stop 02/17/17 at 09:35; Status DC Sodium Bicarbonate 50 meq STK-MED ONCE .ROUTE ; Start 02/17/17 at 09:42; Stop at 09:43; Status DC Sodium Bicarbonate 100 meq 1X ONCE IV Last administered on 02/17/17 09:51; Start 02/17/17 at 09:45; Stop 02/17/17 at 09:48; Status DC Sodium Bicarbonate 150 meq/Dextrose 1,150 ml @ 150 mls/hr Q7H40M IV Last administered on 02/17/17 10:34; Start 02/17/17 at 09:45; Stop 02/17/17 at 18:05 ; Status DC Vasopressin 40 unit/Dextrose 102 ml @ 6 mls/hr ONCE ONCE IV Last administered on 02/17/17 10:34; Start 02/17/17 at 10:00; Stop 02/18/17 at 02:59; Status DC Hydrocortisone Sodium Succinate (Solu-Cortef) 100 mg Q8HRS IV ; Start 02/17/17 at 10:30; Stop 02/17/17 at 10:30; Status DC Vancomycin HCl (Vanco Per Pharmacy) 1 each PRN DAILY PRN MC SEE COMMENTS Last administered on 02/17/17 10:28; Start 02/17/17 at 10:15; Stop 02/18/17 at 12:50 ; Status DC Lidocaine/Sodium Bicarbonate (Buffered Lidocaine 1%) 3 ml 1X ONCE IJ ; Start at 10:15; Stop 02/17/17 at 10:16; Status DC Heparin Sodium/ Sodium Chloride 60 unit 1X ONCE IV ; Start 02/17/17 at 10:15; Stop 02/17/17 at 10:16; Status DC Heparin Sodium (Porcine) (Heparin Sodium) 2,500 unit 1X ONCE INT CAT ; Start at 10:15; Stop 02/17/17 at 10:16; Status DC Hydrocortisone Sodium Succinate (Solu-Cortef) 100 mg ONCE ONCE IV Last administered on 02/17/17 10:36; Start 02/17/17 at 10:30; Stop 02/17/17 at 10:31 ; Status DC Vasopressin 40 unit/Dextrose 102 ml @ 6 mls/hr CONT PRN IV SEE I/O RECORD Last administered on 02/18/17 13:53; Start 02/17/17 at 10:15; Stop 02/23/17 at 07:49 ; Status DC Vancomycin HCl 2 gm/Sodium Chloride 500 ml @ 250 mls/hr ONCE ONCE IV Last administered on 02/17/17 13:53; Start 02/17/17 at 10:30; Stop 02/17/17 at 12:29 ; Status DC Hydrocortisone Sodium Succinate (Solu-Cortef) 100 mg Q8HRS IV Last administered on 02/23/17 06:07; Start 02/17/17 at 14:00; Stop 02/23/17 at 07:49 ; Status DC Vancomycin HCl 1 each 1X ONCE MC ; Start 02/19/17 at 10:30; Stop 02/19/17 at 10 :30; Status DC Chlorhexidine Gluconate (Peridex) 15 ml BID SWSP Last administered on 02/24/17 20:54; Start 02/17/17 at 21:00; Stop 02/25/17 at 08:05; Status DC Sodium Chloride 1,000 ml @ 100 mls/hr Q10H IV Last administered on 02/17/17 13:53; Start 02/17/17 at 12:15; Stop 02/17/17 at 18:58; Status DC Sodium Chloride 1,000 ml @ 1,000 mls/hr Q1H PRN IV hypotension; Start 02/17/17 at 12:28; Stop 02/17/17 at 18:27; Status DC Sodium Chloride (Normal Saline Flush) 10 ml 1X PRN PRN IV AP catheter pack; Start 02/17/17 at 12:30; Stop 02/18/17 at 12:29; Status DC Sodium Chloride (Normal Saline Flush) 10 ml 1X PRN PRN IV 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; Start 02/17/17 at 12:30; Stop 02/18/17 at 12:29; Status DC Info (PHARMACY MONITORING -- do not chart) 1 each PRN DAILY PRN MC SEE COMMENTS ; Start 02/17/17 at 12:30; Stop 02/24/17 at 09:43; Status DC Info (PHARMACY MONITORING -- do not chart) 1 each PRN DAILY PRN MC SEE COMMENTS ; Start 02/17/17 at 12:30; Status UNV Pantoprazole Sodium (Protonix Vial) 40 mg DAILY IVP Last administered on 10:53; Start 02/18/17 at 09:00 Albumin Human 50 ml @ 50 mls/hr 1X ONCE IV Last administered on 02/17/17 18: 58; Start 02/17/17 at 18:45; Stop 02/17/17 at 19:44; Status DC Sodium Chloride 1,000 ml @ 125 mls/hr 1X ONCE IV ; Start 02/17/17 at 18:45; Stop 02/18/17 at 09:15; Status DC Sodium Chloride 1,000 ml @ 125 mls/hr Q8H IV Last administered on 02/18/17 05 :42; Start 02/17/17 at 19:00; Stop 02/18/17 at 09:15; Status DC Sodium Chloride 1,000 ml @ 1,000 mls/hr Q1H PRN IV hypotension; Start 02/18/17 at 07:47; Stop 02/18/17 at 13:46; Status DC Albumin Human 200 ml @ 200 mls/hr 1X PRN PRN IV Hypotension; Start 02/18/17 at 08:00; Stop 02/18/17 at 13:59; Status DC Acetaminophen (Tylenol) 500 mg 1X PRN PRN PO MILD PAIN / TEMP; Start 02/18/17 at 08:00; Stop 02/19/17 at 07:59; Status DC Diphenhydramine HCl (Benadryl) 25 mg 1X PRN PRN IV ITCHING; Start 02/18/17 at 08:00; Stop 02/19/17 at 07:59; Status DC Diphenhydramine HCl (Benadryl) 25 mg 1X PRN PRN IV ITCHING; Start 02/18/17 at 08:00; Stop 02/19/17 at 07:59; Status DC Labetalol HCl (Normodyne) 10 mg PRN Q1HR PRN IVP SBP > 180; Start 02/18/17 at 08:00; Stop 02/19/17 at 07:59; Status DC Clonidine HCl (Catapres) 0.1 mg 1X PRN PRN PO SBP > 180; Start 02/18/17 at 08: 00; Stop 02/19/17 at 07:59; Status DC Sodium Chloride 1,000 ml @ 400 mls/hr Q2H30M PRN IV PATENCY; Start 02/18/17 at 07:47; Stop 02/18/17 at 19:46; Status DC Info (PHARMACY MONITORING -- do not chart) 1 each PRN DAILY PRN MC SEE COMMENTS ; Start 02/18/17 at 08:00; Status UNV Magnesium Sulfate/ Dextrose 50 ml @ 25 mls/hr PRN DAILY PRN IV for Mag < 1.7 on am labs Last administered on 02/18/17 11:16; Start 02/18/17 at 08:00 Propofol 100 ml @ As Directed STK-MED ONCE IV ; Start 02/18/17 at 11:47; Stop 02/18/17 at 11:48; Status DC Propofol 100 ml @ 0 mls/hr CONT PRN IV SEE I/O RECORD Last administered on 06:49; Start 02/18/17 at 12:45; Stop 02/25/17 at 08:05; Status DC Insulin Aspart (Novolog) 0-7 UNITS Q6HRS SQ Last administered on 02/24/17 12:08 ; Start 02/19/17 at 00:00 Dextrose (Dextrose 50%-Water Syringe) 12.5 gm PRN Q15MIN PRN IV SEE COMMENTS Last administered on 02/25/17 19:15; Start 02/18/17 at 21:00 Magnesium Sulfate/ Dextrose 50 ml @ 25 mls/hr PRN DAILY PRN IV for Mag < 1.7 on am labs; Start 02/19/17 at 07:45; Stop 02/19/17 at 10:20; Status DC Potassium Chloride 50 ml @ 50 mls/hr PRN Q6HRS PRN IV For K < 3.7; Start at 07:45 Potassium Chloride 50 ml @ 50 mls/hr PRN Q2HR PRN IV total of 40mEq for K < 3.5 Last administered on 02/22/17 12:11; Start 02/19/17 at 07:45 Calcium Chloride 2000 mg/Sodium Chloride 120 ml @ 240 mls/hr 1X ONCE IV ; Start 02/19/17 at 08:00; Stop 02/19/17 at 08:29; Status DC Albumin Human 100 ml @ 100 mls/hr TID IV Last administered on 02/20/17 20:51 ; Start 02/19/17 at 09:00; Stop 02/20/17 at 21:59; Status DC Bupropion HCl (Wellbutrin) 75 mg BID NG Last administered on 02/24/17 08:32; Start 02/19/17 at 12:00; Stop 02/25/17 at 21:37; Status DC Citalopram Hydrobromide (CeleXA) 20 mg DAILY NG Last administered on 02/24/17 08:32; Start 02/19/17 at 12:00 Heparin Sodium/ Dextrose 500 ml @ 20 mls/hr CONT PRN IV SEE I/O RECORD Last administered on 02/23/17 21:22; Start 02/19/17 at 13:15; Stop 02/26/17 at 12:25 ; Status DC Info (Anti-Coagulation Monitoring By Pharmacy) 1 each PRN DAILY PRN MC SEE COMMENTS Last administered on 02/24/17 09:53; Start 02/20/17 at 07:45; Stop 02/26 at 12:24; Status DC Potassium Chloride 50 ml @ 50 mls/hr Q1HR IV Last administered on 02/20/17 09: 48; Start 02/20/17 at 09:00; Stop 02/20/17 at 10:59; Status DC Metoprolol Tartrate (Lopressor) 2.5 mg 1X ONCE IVP Last administered on 14:19; Start 02/20/17 at 14:00; Stop 02/20/17 at 14:01; Status DC Metoprolol Tartrate (Lopressor) 2.5 mg Q6HRS IVP Last administered on 02/24/17 12:04; Start 02/20/17 at 14:00; Stop 02/24/17 at 13:45; Status DC Albuterol/ Ipratropium (Duoneb) 3 ml RTQID NEB Last administered on 02/27/17 11 :08; Start 02/21/17 at 12:00 Insulin Detemir (Levemir) 10 units QHS SQ Last administered on 02/21/17 21:03 ; Start 02/21/17 at 21:00; Stop 02/22/17 at 12:39; Status DC Insulin Detemir (Levemir) 30 units QHS SQ Last administered on 02/24/17 20:53; Start 02/22/17 at 21:00; Stop 02/25/17 at 12:36; Status DC Aspirin (Ecotrin) 81 mg DAILYWBKFT PO ; Start 02/23/17 at 08:00; Stop 02/23/17 at 08:00; Status DC Hydrocortisone Sodium Succinate (Solu-Cortef) 50 mg Q8HRS IV Last administered on 02/24/17 06:33; Start 02/23/17 at 14:00; Stop 02/24/17 at 10:30; Status DC Aspirin (Children'S Aspirin) 81 mg DAILYWBKFT PO Last administered on 02/24/17 08:32; Start 02/23/17 at 08:00 Nitroglycerin/ Dextrose 250 ml @ 0 mls/hr 1X ONCE IV ; Start 02/23/17 at 12:30 ; Stop 02/23/17 at 12:31; Status DC Piperacillin Sod/ Tazobactam Sod 3.375 gm/Sodium Chloride 50 ml @ 100 mls/hr Q6HRS IV Last administered on 02/25/17 06:21; Start 02/24/17 at 12:00; Stop 02/25 at 07:47; Status DC Hydrocortisone Sodium Succinate (Solu-Cortef) 25 mg BID IV Last administered on 02/27/17 10:53; Start 02/25/17 at 09:00; Stop 02/27/17 at 10:58; Status DC Metoprolol Tartrate (Lopressor) 5 mg Q6HRS IVP Last administered on 02/27/17 12 :07; Start 02/24/17 at 18:00 Metoprolol Tartrate (Lopressor) 2.5 mg 1X ONCE IVP Last administered on 14:49; Start 02/24/17 at 14:00; Stop 02/24/17 at 14:01; Status DC Sodium Chloride 1,000 ml @ 75 mls/hr [id number] IV Last administered on 02/25/17 08:42; Start 02/24/17 at 14:00; Stop 02/25/17 at 20:12; Status DC Iohexol (Omnipaque 350 Mg/ml) 100 ml STK-MED ONCE .ROUTE ; Start 02/25/17 at 11: 38; Stop 02/25/17 at 11:39; Status DC Heparin Sodium/ Sodium Chloride 500 ml @ As Directed STK-MED ONCE .ROUTE ; Start 02/25/17 at 11:38; Stop 02/25/17 at 11:39; Status DC Lidocaine HCl 20 ml STK-MED ONCE .ROUTE ; Start 02/25/17 at 11:38; Stop 02/25/17 at 11:39; Status DC Fentanyl Citrate (Fentanyl 2ml Vial) 100 mcg STK-MED ONCE .ROUTE ; Start at 12:01; Stop 02/25/17 at 12:02; Status DC Midazolam HCl (Versed) 2 mg STK-MED ONCE .ROUTE ; Start 02/25/17 at 12:01; Stop 02/25/17 at 12:02; Status DC Heparin Sodium/ Sodium Chloride 1,000 unit 1X ONCE IART Last administered on 12:43; Start 02/25/17 at 12:30; Stop 02/25/17 at 12:36; Status DC Midazolam HCl (Versed) 1 mg 1X ONCE IV Last administered on 02/25/17 12:44; Start 02/25/17 at 12:30; Stop 02/25/17 at 12:36; Status DC Fentanyl Citrate (Fentanyl 2ml Vial) 50 mcg 1X ONCE IV Last administered on 12:44; Start 02/25/17 at 12:30; Stop 02/25/17 at 12:36; Status DC Iohexol (Omnipaque 350 Mg/ml) 145 ml 1X ONCE IART Last administered on 12:43; Start 02/25/17 at 12:30; Stop 02/25/17 at 12:36; Status DC Lidocaine HCl 20 ml 1X ONCE IJ Last administered on 02/25/17 12:43; Start 02/25 at 12:30; Stop 02/25/17 at 12:36; Status DC Sodium Chloride 1,000 ml @ 60 mls/hr [id number] IV Last administered on 02/25/17 16:25; Start 02/25/17 at 14:34; Stop 02/25/17 at 20:12; Status DC Nitroglycerin (Nitrostat) 0.4 mg PRN Q5MIN PRN SL CHEST PAIN; Start 02/25/17 at 14:45 Dextrose/Sodium Chloride 1,000 ml @ 75 mls/hr [id number] IV Last administered on 02/25/17 21:59; Start 02/25/17 at 19:30; Stop 02/26/17 at 11:34; Status DC Bupropion HCl (Wellbutrin) 75 mg BID PO ; Start 02/26/17 at 09:00; Status UNV Bupropion HCl (Wellbutrin) 75 mg BID PO Last administered on 02/25/17 22:25; Start 02/25/17 at 21:00 Labetalol HCl (Normodyne) 20 mg 1X ONCE IVP Last administered on 02/25/17 23: 33; Start 02/25/17 at 23:30; Stop 02/25/17 at 23:31; Status DC Carvedilol (Coreg) 6.25 mg BIDWMEALS PO Last administered on 02/26/17 07:55; Start 02/26/17 at 08:00; Stop 02/26/17 at 10:31; Status DC Enalaprilat (Vasotec) 1.25 mg Q6HRS IV Last administered on 02/27/17 12:07; Start 02/26/17 at 11:00 Labetalol HCl (Normodyne) 20 mg PRN Q2HR PRN IVP HYPERTENSION, SEE COMMENTS Last administered on 02/27/17 02:48; Start 02/26/17 at 10:45 Lorazepam (Ativan) 0.5 mg 1X ONCE IV Last administered on 02/26/17 21:24; Start 02/26/17 at 21:00; Stop 02/26/17 at 21:01; Status DC Hydrocortisone Sodium Succinate (Solu-Cortef) 25 mg QD IV ; Start 02/28/17 at 09: 00 Nitroglycerin (Nitro-Bid Oint) 1 inch Q6HRS TP Last administered on 02/27/17 12 :00; Start 02/27/17 at 12:00 Active Scripts Active Cardale 7.5-325 Tablet (Acetaminophen/Hydrocodone Bitart) 1 Each Tablet 1 Tab PO PRN Q6HRS PRN Reported Requip (Ropinirole Hcl) 1 Mg Tablet 4 Mg PO DAILY Aspir 81 (Aspirin) 81 Mg Tablet.dr 81 Mg PO DAILY Wellbutrin Sr (Bupropion Hcl) 150 Mg Tablet.er 150 Mg PO DAILY Toprol Xl (Metoprolol Succinate) 25 Mg Tab.er.24h 12 Mg PO DAILY Lasix (Furosemide) 40 Mg Tablet 40 Mg PO DAILY Pravastatin Sodium 40 Mg Tablet 40 Mg PO DAILY Pantoprazole Sodium 40 Mg Tablet.dr 40 Mg PO DAILY Doxycycline Hyclate 100 Mg Capsule 1 Cap PO BID Hydrocodone-Apap 5-325 (Hydrocodone Bit/Acetaminophen) 1 Each Tablet 1-2 Tab PO Q4-6HRS PRN Levothyroxine Sodium 75 Mcg Tablet 1 Tab PO DAILY Citalopram Hbr (Citalopram Hydrobromide) 20 Mg Tablet 20 Mg PO DAILY Losartan Potassium 50 Mg Tablet 50 Mg PO DAILY Metformin Hcl 500 Mg Tablet 1 Tab PO TIDWMEALS Vitals/I & O Vital Sign - Last 24 Hours 02/26/17 02/26/17 02/26/17 02/26/17 13:10 13:11 15:00 15:01 Temp 97.6 97.6 Pulse 79 79 72 Resp 22 B/P (MAP) 172/102 172/102 173/91 (118) Pulse Ox 92 O2 Delivery Nasal Cannula Nasal Cannula O2 Flow Rate 5.0 5.0 5/3/17 5/3/17 5/3/17 5/3/17 18:14 18:15 19:00 19:20 Temp 97.7 97.7 Pulse 72 72 77 Resp 18 B/P (MAP) 173/91 173/91 160/91 (114) Pulse Ox 92 O2 Delivery Nasal Cannula Nasal Cannula O2 Flow Rate 5.0 5.0 02/26/17 02/26/17 02/27/17 02/27/17 20:01 23:35 00:25 00:26 Temp 97.5 97.5 Pulse 94 100 100 Resp 26 B/P (MAP) 131/87 (102) 131/87 131/87 Pulse Ox 93 O2 Delivery Nasal Cannula Nasal Cannula O2 Flow Rate 5.0 5.0 02/27/17 02/27/17 02/27/17 02/27/17 02:48 03:04 07:00 07:22 Temp 98.0 98.7 98.0 98.7 Pulse 82 93 82 93 Resp 24 28 B/P (MAP) 186/99 186/99 (128) 155/92 (113) 186/99 Pulse Ox 97 90 O2 Delivery Simple Mask Nasal Cannula O2 Flow Rate 5.0 5.0 02/27/17 02/27/17 02/27/17 02/27/17 07:23 07:25 11:00 11:04 Pulse 93 84 Resp 18 B/P (MAP) 186/99 189/98 (128) Pulse Ox 98 93 O2 Delivery Simple Mask Nasal Cannula O2 Flow Rate 6.0 6.0 02/27/17 02/27/17 02/27/17 12:00 12:07 12:07 Pulse 89 88 88 B/P (MAP) 189/98 189/98 189/98 Intake and Output 02/26/17 02/26/17 02/27/17 14:59 22:59 06:59 Intake Total 412 ml 0 ml Balance 412 ml 0 ml Nutrition Consultation Dietary Evaluation: Recommendations by RD: PPN/TPN Comments: Pt extubated 02/24 and TF stopped Rec. 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
[2017-02-27] MEDS ORDERED: ENOXAPARIN 40 MG/0.4 ML SYRINGE. SQ ONE (12:30)
--- NOTE | 2017-02-27 12:34 | PDOC3 ---
Discharge Summary Visit Information Date of Admission: Feb 16, 2017 Date of Discharge: February 27, 2017 Admitting Diagnosis: NSTEMI Final Diagnosis NSTEMI Respiratory failure, acute -Pulmonary fibrosis -Acute renal failure, ATN -DM 2 -CHF, acute on chronic systolic -CABG w. CAD -NSTEMI -tobacco use d/o -HLD -HTN -FREDY -Obesity -Constipation -GERD -Hypothyroidism -Anxiety -Hepatitis A Problems Medical Problems: (1) ARF (acute renal failure) Status: Acute (2) Cardiac failure Status: Acute (3) Hypoxia Status: Acute (4) Respiratory failure Status: Acute Brief Hospital Course Allergies Allergies Coded Allergies Type Severity Reaction Last Updated Verified Sulfa (Sulfonamide Antibiotics) Allergy Severe SWELLING MOSTLY ON LIPS Yes Vital Signs Vital Signs Date Time Temp Pulse Resp B/P (MAP) Pulse Ox O2 Delivery O2 Flow Rate FiO2 02/27/17 12:07 88 189/98 02/27/17 11:04 18 93 Nasal Cannula 6.0 02/27/17 07:00 98.7 98.7 Lab Results Laboratory Tests Test 02/25/17 17:01 02/25/17 18:43 02/25/17 20:55 02/26/17 06:30 Glucose (Fingerstick) 75 mg/dL (70-99) 65 mg/dL (70-99) 77 mg/dL (70-99) White Blood Count 13.0 x10^3/uL (4.0-11.0) Red Blood Count 4.62 x10^6/uL (3.50-5.40) Hemoglobin 10.9 g/dL (12.0-15.5) Hematocrit 35.5 % (36.0-47.0) Mean Corpuscular Volume 77 fL (79-100) Mean Corpuscular Hemoglobin 24 pg (25-35) Mean Corpuscular Hemoglobin Concent 31 g/dL (31-37) Red Cell Distribution Width 23.3 % (11.5-14.5) Platelet Count 221 x10^3/uL (140-400) Neutrophils (%) (Auto) 80 % (31-73) Lymphocytes (%) (Auto) 9 % (24-48) Monocytes (%) (Auto) 11 % (0-9) Eosinophils (%) (Auto) 0 % (0-3) Basophils (%) (Auto) 0 % (0-3) Neutrophils # (Auto) 10.4 x10^3uL (1.8-7.7) Lymphocytes # (Auto) 1.2 x10^3/uL (1.0-4.8) Monocytes # (Auto) 1.4 x10^3/uL (0.0-1.1) Eosinophils # (Auto) 0.0 x10^3/uL (0.0-0.7) Basophils # (Auto) 0.0 x10^3/uL (0.0-0.2) Sodium Level 143 mmol/L (136-145) Potassium Level 3.5 mmol/L (3.5-5.1) Chloride Level 103 mmol/L (98-107) Carbon Dioxide Level 31 mmol/L (21-32) Anion Gap 9 (6-14) Blood Urea Nitrogen 35 mg/dL (7-20) Creatinine 0.8 mg/dL (0.6-1.0) Estimated GFR (Cockcroft-Gault) 72.7 Glucose Level 143 mg/dL (70-99) Calcium Level 8.7 mg/dL (8.5-10.1) Magnesium Level 1.9 mg/dL (1.8-2.4) Creatine Kinase 136 U/L (26-192) Test 02/26/17 07:37 02/26/17 11:51 02/26/17 16:58 02/26/17 20:21 Glucose (Fingerstick) 147 mg/dL (70-99) 124 mg/dL (70-99) 133 mg/dL (70-99) 136 mg/dL (70-99) Test 02/27/17 02:05 02/27/17 08:28 02/27/17 11:33 White Blood Count 11.2 x10^3/uL (4.0-11.0) Red Blood Count 4.41 x10^6/uL (3.50-5.40) Hemoglobin 10.4 g/dL (12.0-15.5) Hematocrit 34.2 % (36.0-47.0) Mean Corpuscular Volume 78 fL (79-100) Mean Corpuscular Hemoglobin 24 pg (25-35) Mean Corpuscular Hemoglobin Concent 30 g/dL (31-37) Red Cell Distribution Width 22.9 % (11.5-14.5) Platelet Count 199 x10^3/uL (140-400) Neutrophils (%) (Auto) 84 % (31-73) Lymphocytes (%) (Auto) 8 % (24-48) Monocytes (%) (Auto) 8 % (0-9) Eosinophils (%) (Auto) 0 % (0-3) Basophils (%) (Auto) 0 % (0-3) Neutrophils # (Auto) 9.3 x10^3uL (1.8-7.7) Lymphocytes # (Auto) 0.9 x10^3/uL (1.0-4.8) Monocytes # (Auto) 0.9 x10^3/uL (0.0-1.1) Eosinophils # (Auto) 0.0 x10^3/uL (0.0-0.7) Basophils # (Auto) 0.0 x10^3/uL (0.0-0.2) Segmented Neutrophils % 79 % (35-66) Band Neutrophils % 2 % (0-9) Lymphocytes % 11 % (24-48) Monocytes % 6 % (0-10) Metamyelocytes % 2 % (0-0) Platelet Estimate Adequate (ADEQUATE) Polychromasia Slight Hypochromasia Slight Poikilocytosis Slight Anisocytosis Mod Target Cells Occ Sodium Level 142 mmol/L (136-145) Potassium Level 3.9 mmol/L (3.5-5.1) Chloride Level 103 mmol/L (98-107) Carbon Dioxide Level 29 mmol/L (21-32) Anion Gap 10 (6-14) Blood Urea Nitrogen 37 mg/dL (7-20) Creatinine 0.8 mg/dL (0.6-1.0) Estimated GFR (Cockcroft-Gault) 72.7 BUN/Creatinine Ratio 46 (6-20) Glucose Level 168 mg/dL (70-99) Calcium Level 8.8 mg/dL (8.5-10.1) Total Bilirubin 2.7 mg/dL (0.2-1.0) Aspartate Amino Transf (AST/SGOT) 65 U/L (15-37) Alanine Aminotransferase (ALT/SGPT) 91 U/L (14-59) Alkaline Phosphatase 114 U/L (46-116) Total Protein 6.0 g/dL (6.4-8.2) Albumin 2.8 g/dL (3.4-5.0) Albumin/Globulin Ratio 0.9 (1.0-1.7) Glucose (Fingerstick) 182 mg/dL (70-99) 193 mg/dL (70-99) Laboratory Tests Test 02/26/17 16:58 02/26/17 20:21 02/27/17 02:05 02/27/17 08:28 Glucose (Fingerstick) 133 mg/dL (70-99) 136 mg/dL (70-99) 182 mg/dL (70-99) White Blood Count 11.2 x10^3/uL (4.0-11.0) Red Blood Count 4.41 x10^6/uL (3.50-5.40) Hemoglobin 10.4 g/dL (12.0-15.5) Hematocrit 34.2 % (36.0-47.0) Mean Corpuscular Volume 78 fL (79-100) Mean Corpuscular Hemoglobin 24 pg (25-35) Mean Corpuscular Hemoglobin Concent 30 g/dL (31-37) Red Cell Distribution Width 22.9 % (11.5-14.5) Platelet Count 199 x10^3/uL (140-400) Neutrophils (%) (Auto) 84 % (31-73) Lymphocytes (%) (Auto) 8 % (24-48) Monocytes (%) (Auto) 8 % (0-9) Eosinophils (%) (Auto) 0 % (0-3) Basophils (%) (Auto) 0 % (0-3) Neutrophils # (Auto) 9.3 x10^3uL (1.8-7.7) Lymphocytes # (Auto) 0.9 x10^3/uL (1.0-4.8) Monocytes # (Auto) 0.9 x10^3/uL (0.0-1.1) Eosinophils # (Auto) 0.0 x10^3/uL (0.0-0.7) Basophils # (Auto) 0.0 x10^3/uL (0.0-0.2) Segmented Neutrophils % 79 % (35-66) Band Neutrophils % 2 % (0-9) Lymphocytes % 11 % (24-48) Monocytes % 6 % (0-10) Metamyelocytes % 2 % (0-0) Platelet Estimate Adequate (ADEQUATE) Polychromasia Slight Hypochromasia Slight Poikilocytosis Slight Anisocytosis Mod Target Cells Occ Sodium Level 142 mmol/L (136-145) Potassium Level 3.9 mmol/L (3.5-5.1) Chloride Level 103 mmol/L (98-107) Carbon Dioxide Level 29 mmol/L (21-32) Anion Gap 10 (6-14) Blood Urea Nitrogen 37 mg/dL (7-20) Creatinine 0.8 mg/dL (0.6-1.0) Estimated GFR (Cockcroft-Gault) 72.7 BUN/Creatinine Ratio 46 (6-20) Glucose Level 168 mg/dL (70-99) Calcium Level 8.8 mg/dL (8.5-10.1) Total Bilirubin 2.7 mg/dL (0.2-1.0) Aspartate Amino Transf (AST/SGOT) 65 U/L (15-37) Alanine Aminotransferase (ALT/SGPT) 91 U/L (14-59) Alkaline Phosphatase 114 U/L (46-116) Total Protein 6.0 g/dL (6.4-8.2) Albumin 2.8 g/dL (3.4-5.0) Albumin/Globulin Ratio 0.9 (1.0-1.7) Test 02/27/17 11:33 Glucose (Fingerstick) 193 mg/dL (70-99) Brief Hospital Course Ms. Betancourt is a 61 old admitted w. episode of retching (not uncommon for her) , began feeling weak w/ numbness in hand and slurring words, then noted w/ BRADLEY and resp failure, was intubated, transferred to [facility] w/ elevated troponin. dialysis done, sepsitc appearcnage, TSH high, possible noncompliance NSTEMI trop peak 31.1, repeat echo with preserved LV function with an EF of 55-60% on vent until 02/24, then weakness, poor voice, dysphagia, ICU myopathy, will need long stay for improvement, rehab she DECLINED DOBHOFF x2 , I discussed as the best options. She is not getting her depression meds long-term plan discussed She has been extubated. She will have a cardiac cath today and a swallow study. We discussed the case with her nurse. to LTAC Discharge Information Condition at Discharge: Improved Follow Up: Weeks Disposition/Orders: D/C to Another Facility Scheduled Aspirin (Aspir 81), 81 MG PO DAILY, (Reported) Bupropion Hcl (Wellbutrin Sr), 150 MG PO DAILY, (Reported) Citalopram Hydrobromide (Citalopram Hbr), 20 MG PO DAILY, (Reported) Doxycycline Hyclate (Doxycycline Hyclate), 1 CAP PO BID, (Reported) Furosemide (Lasix), 40 MG PO DAILY, (Reported) Levothyroxine Sodium (Levothyroxine Sodium), 1 TAB PO DAILY, (Reported) Losartan Potassium (Losartan Potassium), 50 MG PO DAILY, (Reported) Metformin Hcl (Metformin Hcl), 1 TAB PO TIDWMEALS, (Reported) Metoprolol Succinate (Toprol Xl), 12 MG PO DAILY, (Reported) Pantoprazole Sodium (Pantoprazole Sodium), 40 MG PO DAILY, (Reported) Pravastatin Sodium (Pravastatin Sodium), 40 MG PO DAILY, (Reported) Ropinirole Hcl (Requip), 4 MG PO DAILY, (Reported) Scheduled PRN Hydrocodone Bit/Acetaminophen (Hydrocodone-Apap 5-325 ), 1-2 TAB PO Q4-6HRS PRN for PAIN, (Reported) Hydrocodone/Apap 7.5-325 ([place] 7.5-325 Tablet), 1 TAB PO PRN Q6HRS PRN for PAIN Patient Instructions Patient Instructions home meds converted to IV enalapril IV, metoprolol IV, synthroid IV 1/2 mg speech therapy, PT and OT daily weakness is marked Time > 39 min JIL LANGE MD February 27, 2017 12:34
--- NOTE | 2017-02-27 14:22 | RAD ---
Indication congestive heart failure. A single view of the chest was obtained. Comparison is made to a study 4 days earlier. Postoperative changes are noted. Left subclavian catheter persists. Coarse interstitial infiltrates, much of which is probably chronic, persists similar to the previous exam. IMPRESSION: Coarse interstitial infiltrates, much of which is likely chronic, persists. The appearance of the chest is not changed appreciably relative to the previous exam
[2017-02-27 15:00] VITALS: BP 171/116
[2017-02-27 15:26] VITALS: BP 182/94
[2017-02-27 15:33] VITALS: BP 182/94
[2017-02-28] MEDS ORDERED: HYDROCORTISONE SOD SUCC/PF 100 MG/2 ML VIAL. IV SCH (09:00)
== END 2017-02-27 15:00 | DRG 870 ==
LOC: 1 WEST ICU 23:15 → 2 SOUTH 02-25 12:50
PROVIDERS: ADMIT Internal Medicine; ATTEND Internal Medicine
PROC: 5A1955Z Respiratory Ventilation, Greater than 96 Consecutive Hours (ICD-10-PCS; 2017-02-16)
PROC: 0BH17EZ Insertion of Endotracheal Airway into Trachea, Via Natural or Artificial Opening (ICD-10-PCS; 2017-02-16)
PROC: 05HM33Z Insertion of Infusion Device into Right Internal Jugular Vein, Percutaneous Approach (ICD-10-PCS; principal; 2017-02-17)
PROC: B543ZZA Ultrasonography of Right Jugular Veins, Guidance (ICD-10-PCS; 2017-02-17)
PROC: 5A1D60Z (ICD-10-PCS; 2017-02-18)
PROC: 4A023N7 Measurement of Cardiac Sampling and Pressure, Left Heart, Percutaneous Approach (ICD-10-PCS; 2017-02-25)
PROC: B2151ZZ Fluoroscopy of Left Heart using Low Osmolar Contrast (ICD-10-PCS; 2017-02-25)
PROC: B2111ZZ Fluoroscopy of Multiple Coronary Arteries using Low Osmolar Contrast (ICD-10-PCS; 2017-02-25)
PROC: B2121ZZ Fluoroscopy of Single Coronary Artery Bypass Graft using Low Osmolar Contrast (ICD-10-PCS; 2017-02-25)
PROC: B2181ZZ Fluoroscopy of Left Internal Mammary Bypass Graft using Low Osmolar Contrast (ICD-10-PCS; 2017-02-25)
PROC: B2171ZZ Fluoroscopy of Right Internal Mammary Bypass Graft using Low Osmolar Contrast (ICD-10-PCS; 2017-02-25)
DX: A41.9 Sepsis, unspecified organism (principal); I50.43 Acute on chronic combined systolic (congestive) and diastolic (congestive) heart failure; I21.4 Non-ST elevation (NSTEMI) myocardial infarction; J18.9 Pneumonia, unspecified organism; J96.21 Acute and chronic respiratory failure with hypoxia; K72.00 Acute and subacute hepatic failure without coma; N17.0 Acute kidney failure with tubular necrosis; R57.1 Hypovolemic shock; R65.21 Severe sepsis with septic shock; E87.2 Acidosis; B15.9 Hepatitis A without hepatic coma; I13.0 Hypertensive heart and chronic kidney disease with heart failure and stage 1 through stage 4 chronic kidney disease, or unspecified chronic kidney disease; I47.2 Ventricular tachycardia; J44.0 Chronic obstructive pulmonary disease with (acute) lower respiratory infection; E11.22 Type 2 diabetes mellitus with diabetic chronic kidney disease; E78.5 Hyperlipidemia, unspecified; E86.0 Dehydration; E03.9 Hypothyroidism, unspecified; G47.33 Obstructive sleep apnea (adult) (pediatric); E11.43 Type 2 diabetes mellitus with diabetic autonomic (poly)neuropathy; E11.65 Type 2 diabetes mellitus with hyperglycemia; E86.1 Hypovolemia; E66.9 Obesity, unspecified; D69.6 Thrombocytopenia, unspecified; E11.649 Type 2 diabetes mellitus with hypoglycemia without coma; E77.8 Other disorders of glycoprotein metabolism; E87.6 Hypokalemia; F41.9 Anxiety disorder, unspecified; G25.81 Restless legs syndrome; I25.10 Atherosclerotic heart disease of native coronary artery without angina pectoris; I27.2 Other secondary pulmonary hypertension; J84.10 Pulmonary fibrosis, unspecified; K21.9 Gastro-esophageal reflux disease without esophagitis; K29.50 Unspecified chronic gastritis without bleeding; K31.84 Gastroparesis; K44.9 Diaphragmatic hernia without obstruction or gangrene; K57.30 Diverticulosis of large intestine without perforation or abscess without bleeding; K59.00 Constipation, unspecified; K64.8 Other hemorrhoids; K76.1 Chronic passive congestion of liver; K81.9 Cholecystitis, unspecified; N18.3 Chronic kidney disease, stage 3 (moderate); M19.90 Unspecified osteoarthritis, unspecified site; R13.10 Dysphagia, unspecified; Z68.38 Body mass index [BMI] 38.0-38.9, adult; Z72.0 Tobacco use; Z83.3 Family history of diabetes mellitus; Z88.2 Allergy status to sulfonamides; Z82.49 Family history of ischemic heart disease and other diseases of the circulatory system; Z95.1 Presence of aortocoronary bypass graft; Z99.81 Dependence on supplemental oxygen
CPT/HCPCS: 36415; 36556; 36600; 71010; 74000; 76700; 76937; 80048; 80053; 80061; 80069; 80202; 81001; 82550; 82570; 82728; 82805; 82947; 83540; 83550; 83605; 83735; 84100; 84156; 84443; 84484; 84550; 85007; 85027; 85045; 85520; 85610; 86705; 86706; 87086; 87186; 87340; 87341; 87641; 93005; 93306; 93459; 94003; 94250; 94640; 94760; A4215; C1769; C1771; C1892; C9113; G0269; J1650; J1720; J1815; J2060; J2250; J2543; J2704; J3010; J3370; J3480; J3490; J7030; J7040; J7042; J7060; J7620; P9046; Q9967; 92526; 92610; 97110; 97530; 97535